=== PATIENT | male | born 1930 | race Hispanic/Latino ===

== ENCOUNTER 2017-06-13 17:22 | Inpatient (IN) | payer MEDICARE ==
[2017-06-13] MEDS ORDERED: Levalbuterol 1.25 MG/3 ML Inhal Soln UD IH STA ×2 (17:34)
[2017-06-13] MEDS ORDERED: Ipratropium 0.02% Inhal Soln (0.5 mg/2.5 ml) UD IH STA ×2 (17:34)
[2017-06-13] MEDS ORDERED: Etomidate 20 mg/10ml Inj IV ONE (17:35)
[2017-06-13] MEDS ORDERED: Succinylcholine 200 mg/10 ml Inj IV ONE (17:36)
--- NOTE | 2017-06-13 17:42 | ED PDOC ---
Arrival/HPI <Patsy Lowry - Last Filed: 06/13/17 19:20> - General Historian: EMS EM Caveat: Altered Mental Status - History of Present Illness Time/Duration: Prior to Arrival Symptom Onset: Sudden Symptom Course: Unchanged <Nancy Mabry - Last Filed: 06/13/17 20:08> - General Chief Complaint: Altered Mental Status Time Seen by Provider: 06/13/17 17:23 - History of Present Illness Narrative History of Present Illness (Text): 06/13/17 17:35 A 87 year old male, whose past medical history includes congestive heart failure , chronic obstructive pulmonary disease, hypertension and diabetes, no-st elevation [place], and peripheral arterial disease, is brought in by EMS and presents to the emergency department with AMS prior to arrival. EMS reports patient has been lethargic for the past few days, and today there was difficulty arousing the patient. EMS mentions O2 sad in the 50s. Also, patient was given Narcan in the field but showed no improvements. Limited HPI and ROS due to AMS. (Nancy Mabry) Past Medical History - Provider Review Nursing Documentation Reviewed: Yes - Cardiac Hx Cardiac Disorders: Yes Hx Congestive Heart Failure: Yes Hx Hypertension: Yes Hx Pacemaker: No - Pulmonary Hx Respiratory Disorders: Yes Hx Chronic Obstructive Pulmonary Disease (COPD): Yes - Neurological Hx Neurological Disorder: No Hx Paralysis: No - HEENT Hx HEENT Disorder: No - Renal Hx Renal Disorder: No - Endocrine/Metabolic Hx Endocrine Disorders: No - Hematological/Oncological Hx Blood Disorders: No Hx Blood Transfusions: No - Integumentary Hx Dermatological Disorder: No - Musculoskeletal/Rheumatological Hx Musculoskeletal Disorders: No - Gastrointestinal Hx Gastrointestinal Disorders: No - Genitourinary/Gynecological Hx Genitourinary Disorders: Yes Hx Bladder Cancer: Yes - Psychiatric Hx Psychophysiologic Disorder: No Hx Emotional Abuse: No Hx Physical Abuse: No Hx Substance Use: No - Surgical History Other/Comment: Stents in legs - Anesthesia Hx Anesthesia Reactions: No Hx Malignant Hyperthermia: No - Suicidal Assessment Feels Threatened In Home Enviroment: No <Nancy Mabry - Last Filed: 06/13/17 20:08> Family/Social History - Physician Review Nursing Documentation Reviewed: Yes Family/Social History: No Known Family HX Smoking Status: Former Smoker Hx Alcohol Use: No (QUIT 3 YRS AGO) Hx Substance Use: No <Nancy Mabry - Last Filed: 06/13/17 20:08> Allergies/Home Meds <Patsy Lowry - Last Filed: 06/13/17 19:20> <Nancy Mabry - Last Filed: 06/13/17 20:08> Allergies/Adverse Reactions: Allergies No Known Allergies Allergy (Verified 06/13/17 17:29) Home Medications: Home Meds Medication Instructions Recorded Confirmed Atorvastatin [Lipitor] 10 mg PO DAILY 03/14/16 06/13/17 Furosemide [Lasix] 40 mg PO DAILY 03/14/16 06/13/17 Isosorbide Mononitrate [Imdur] 60 mg PO DAILY 03/14/16 06/13/17 Metoprolol Tartrate [Lopressor] 25 mg PO BID 03/14/16 06/13/17 Tiotropium [Spiriva] 18 mcg IH BID 03/14/16 06/13/17 Losartan [Cozaar] 25 mg PO DAILY 08/23/16 06/13/17 Tamsulosin [Flomax] 0.4 mg PO DAILY 08/23/16 06/13/17 Mometasone/Formoterol [Dulera 200 1 inh INH BID 06/13/17 06/13/17 Mcg/5 Mcg Inhaler] Review of Systems - Review of Systems Systems not reviewed;Unavailable: Altered Mental Status <Nancy Mabry - Last Filed: 06/13/17 20:08> Physical Exam - Physical Exam Physical Exam Limitations: Altered Mental Status Vital Signs Reviewed: Yes Temperature: Afebrile Blood Pressure: Hypertensive Pulse: Tachycardic Respiratory Rate: Normal Appearance: Positive for: Ill-Appearing, Other (elderly cachectic white male) Pain Distress: None Mental Status: Positive for: Lethargic, other (not talking) Finger Stick Blood Glucose: 118 - Systems Exam Head: Present: Atraumatic, Normocephalic Pupils: Present: Pinpoint (bilaterally), Other (patient opened eyes to sternal rub) Conjunctiva: Present: Normal Mouth: Present: Dry Pharnyx: No: ERYTHEMA, EXUDATE, TONSILS ENLARGED Neck: Present: JVD Respiratory/Chest: Present: Decreased Breath Sounds (diminished) Cardiovascular: Present: Other (distant cardiac sounds) Abdomen: Present: Normal Bowel Sounds. No: Tenderness, Distention, Peritoneal Signs Back: Present: Normal Inspection Upper Extremity: Present: Normal Inspection. No: Cyanosis, Edema Lower Extremity: Present: Edema (pending bilaterally, 2+), Other (ulcerations) Neurological: Present: Other (altered ms; not talking) Skin: Present: Warm, Dry, Normal Color. No: Rashes Psychiatric: Present: Lethargic <Nancy Mabry - Last Filed: 06/13/17 20:08> Vital Signs Temp Pulse Resp BP Pulse Ox 06/13/17 19:15 70 138/55 L 100 06/13/17 19:01 70 131/70 100 06/13/17 18:45 74 16 133/76 100 06/13/17 18:35 133/76 06/13/17 18:30 70 16 115/51 L 100 06/13/17 18:28 98.9 F 06/13/17 18:07 93 H 16 169/72 H 100 06/13/17 17:31 108 H 17 165/85 H 99 Medical Decision Making <Patsy Lowry - Last Filed: 06/13/17 19:20> - Critical Care Critical Care Minutes: 45 minutes - Lab Interpretations I have reviewed the lab results: Yes <Nancy Mabry - Last Filed: 06/13/17 20:08> ED Course and Treatment: 06/13/17 17:28 Impression: 87 year old male with AMS. Physical exam shows EtOH dc; pinpoint bilaterally, patient opens eyes and does sternal rub; patient is not talking; mucous membrane dry; JVD in neck; cardiac distant sounds; diminished breath sounds; abdomen nontender; lower extremities 2+ with pending edema bilaterally, ulcerations. Differential Diagnosis included but are not limited to: Hypercapnia due to CHF vs. COPD vs. Pneumonia vs. CVA vs. Electrolyte Abnormality Plan: -- Blood Gas -- EKG -- Head CT -- Labs -- Amidate -- Lasix -- Atrovent (ordered twice) -- Xopenex (ordered twice) -- Medrol -- Blood Culture -- Urine Culture -- IV Fluids -- Urinalysis -- Reassess and disposition Prior Visits: Notes and results from previous visits were reviewed. Patient was last seen in the emergency department on 08/22/2016 for difficulty ambulating and dyspnea on exertion. Patient was admitted. Progress Notes: 06/13/17 17:29 EKG: Ordered, reviewed, and independently interpreted the EKG. Rate : 109 BPM Rhythm : Sinus tachycardia Interpretation : Biatrial enlargement, left ventricular hypertrophy high voltage. QRS of 120 with new inverted T-waves. Comparison : 08/22/2016 old T-waves changes laterally. Normal access. 06/13/17 19:59 Patient with altered mental status and hypoxic, desaturating to 50% in the field , - no response to narcan; difficult to arouse here in the ED with just eye opening with known history of copd and CHF - concern for airway protection and impending respiratory failure - intubated in the ED. Labs with respiratory acidosis, although may not explain his severe alteration of ms; lactic acid is high, though did not fit SIRS criteria, so code sepsis was not called, but patient was treated with broad spectrum antibiotics; K is high at 6.2; ordered kayexalate and insulin (and glucose) - will need to be admitted to ICU; case was discussed with Dr. Hudson for admission to ICU on the hospitalist's service. 06/13/17 20:[address] result is pending, though does not appear to have a bleed. (Nancy Mabry ) - Lab Interpretations Lab Results: 06/13/17 17:33 06/13/17 18:43 Lab Results 06/13/17 18:43: Sodium 152 H, Chloride 112 H, Potassium 6.2 H* D, Carbon Dioxide 28, Anion Gap 18, BUN 26 H, Creatinine 1.7 H, Est GFR ( Amer) 47 , Est GFR (Non-Af Amer) 38, Random Glucose 115 H, Calcium 8.6, Total Bilirubin 1.7 H, AST 72 H, ALT 40, Alkaline Phosphatase 237 H, Lactate Dehydrogenase 692, Total Creatine Kinase 47, Troponin I 0.14 H* D, NT-Pro-B Natriuret Pep 22026 H, Total Protein 7.2, Albumin 3.4, Globulin 3.8, Albumin/Globulin Ratio 0.9 L, Lipase 34 06/13/17 18:03: Urine Color Dark yellow, Urine Appearance Sl cloudy, Urine pH 5.5, Ur Specific [place] >= 1.030, Urine Protein >=300 H, Urine Glucose (UA) Negative, Urine Ketones Negative, Urine Blood Small H, Urine Nitrate Negative, Urine Bilirubin Moderate H, Urine Urobilinogen 1.0 H, Ur Leukocyte Esterase Negative, Urine RBC 2 - 5, Urine WBC 1 - 3, Ur Epithelial Cells 0 - 2, Urine Bacteria Few, Hyaline Casts 0 - 2, Fine Granular Casts 0 - 2, Coarse Granular Casts Trace H 06/13/17 18:00: pCO2 64 H, pO2 448.0 H, HCO3 28.1 H, ABG pH 7.25 L, ABG Total CO2 30.1 H, ABG O2 Saturation 100.1 H, ABG Base Excess -0.6, ABG Potassium 5.1, Sodium 149.0 H, Chloride 115.0 H, Glucose 114 H, Lactate 3.6 H, Mechanical Rate 16, FiO2 100.0, Tidal Volume 450, PEEP 5, Arterial Blood Potassium 5.1 06/13/17 17:33: PT 14.7 H, INR 1.36 H, APTT 27.8 06/13/17 17:33: WBC 7.4, RBC 5.43, Hgb 15.9, Hct 53.0 H, MCV 97.6, MCH 29.3, MCHC 30.0 L, RDW 17.7 H, Plt Count 268, MPV 10.3, Gran % 77.0 H, Lymph % (Auto) 10.6 L, Angelina % (Auto) 12.0 H, Eos % (Auto) 0.1 L, Baso % (Auto) 0.3, Gran # 5.66 , Lymph # 0.8 L, Angelina # 0.9 H, Eos # 0.0, Baso # 0.02 - RAD Interpretation Radiology Orders: 06/13/17 17:33 Brain [HEAD W/O CONTRAST] [CT] Stat CHEST PORTABLE [RAD] Stat - Medication Orders Current Medication Orders: Midazolam 100 mg/100ml in NS (Midazolam 100 Mg/100ml In Ns) 100 mg in 100 mls @ 2 mls/hr IV .Q24H PRN; Protocol; 2 MG/HR PRN Reason: Agitation Last Admin: 06/13/17 18:25 Dose: 2 mls/hr Cefepime HCl (Maxipime 1gm) 1 gm in 100 mls @ 100 mls/hr IVPB ONCE ONE PRN Reason: Protocol Stop: 06/13/17 20:47 Vancomycin HCl 1 gm/ Sodium (Chloride) 250 mls @ 133.333 mls/hr IV STAT STA PRN Reason: Protocol Stop: 06/13/17 21:39 Discontinued Medications Dextrose (Dextrose 50% Inj) 100 ml IVP STAT STA Stop: 06/13/17 19:33 Etomidate (Amidate) Confirm Administered Dose 20 mg IV .STK-MED ONE Stop: 06/13/17 17:36 Last Admin: 06/13/17 17:47 Dose: Etomidate (Amidate) 20 mg IVP STAT STA Stop: 06/13/17 17:49 Last Admin: 06/13/17 17:49 Dose: 20 mg Furosemide (Lasix) 40 mg IVP STAT STA Stop: 06/13/17 17:47 Last Admin: 06/13/17 18:35 Dose: 40 mg Sodium Chloride (Sodium Chloride 0.9%) 250 mls @ 999 mls/hr IV .Q16M STA Stop: 06/13/17 18:05 Last Admin: 06/13/17 18:17 Dose: 999 mls/hr Insulin Human Regular (Humulin R) 10 units IVP ONCE STA Stop: 06/13/17 19:33 Ipratropium Blain (Atrovent) 0.5 mg IH STAT STA Stop: 06/13/17 17:35 Last Admin: 06/13/17 18:43 Dose: 0.5 mg Ipratropium Blain (Atrovent) 0.5 mg IH STAT STA Stop: 06/13/17 17:35 Last Admin: 06/13/17 18:43 Dose: 0.5 mg Levalbuterol HCl (Xopenex) 1.25 mg IH STAT STA Stop: 06/13/17 17:35 Last Admin: 06/13/17 18:43 Dose: 1.25 mg Levalbuterol HCl (Xopenex) 1.25 mg IH STAT STA Stop: 06/13/17 17:35 Last Admin: 06/13/17 18:43 Dose: 1.25 mg Methylprednisolone (Solu-Medrol) 125 mg IVP STAT STA Stop: 06/13/17 17:34 Last Admin: 06/13/17 18:34 Dose: 125 mg Sodium Polystyrene Sulfonate (Kayexalate Oral Susp) 30 gm DE STAT STA Stop: 06/13/17 19:32 Succinylcholine Chloride (Quelicin) Confirm Administered Dose 200 mg IV .STK- MED ONE Stop: 06/13/17 17:37 Last Admin: 06/13/17 17:46 Dose: Procedures - Intubation Time of Intubation: 17:30 Intubation Method: orotracheal Tube Size (cm): 8.0 Breath Sounds after Intubation: equal Intubation Complications: no complications Post Intubation Xray: Yes <SalvatoreyaakovPatsy - Last Filed: 06/13/17 19:20> <Patsy Lowry - Last Filed: 06/13/17 19:20> - Scribe Statement The provider has reviewed the documentation as recorded by the Scribe <Nancy Mabry - Last Filed: 06/13/17 20:08> - Scribe Statement Vannessa Barnett Provider Scribe Attestation: All medical record entries made by the Scribe were at my direction and personally dictated by me. I have reviewed the chart and agree that the record accurately reflects my personal performance of the history, physical exam, medical decision making, and the department course for this patient. I have also personally directed, reviewed, and agree with the discharge instructions and disposition. (Nancy Mabry) Disposition/Present on Arrival <AlenPatsy - Last Filed: 06/13/17 19:20> - Present on Arrival Any Indicators Present on Arrival: No History of DVT/PE: No History of Uncontrolled Diabetes: No Urinary Catheter: No History of Decub. Ulcer: No History Surgical Site Infection Following: None - Disposition Have Diagnosis and Disposition been Completed?: Yes Disposition Time: 19:00 Patient Plan: Admission, ICU <Nancy Mabry - Last Filed: 06/13/17 20:08> - Disposition Diagnosis: Congestive heart failure (CHF), Altered mental status, Respiratory acidosis Disposition: HOSPITALIZED Condition: CRITICAL Discharge Instructions (ExitCare): Heart Failure (ED) Referrals: [facility] Tere Guerin, [Primary Care Provider] - Follow up with primary Forms: [employer] (Polish)
[2017-06-13] MEDS ORDERED: Etomidate 20 mg/10ml Inj IVP STA (17:48)
[2017-06-13] MEDS ORDERED: Sodium Chloride 0.9% 250 ML IV STA (17:50)
[2017-06-13 17:58] LABS: BASO # 0.02 K/mm3 (0.0-2.0); BASO % 0.3 % (0.0-3.0); EOS % 0.1 % (1.5-5.0); GRAN # 5.66 (1.4-6.5); LYMPH # 0.8 (1.2-3.4); LYMPH % 10.6 % (22.0-35.0); MEAN CELL VOLUME 97.6 fl (80.0-105.0); MEAN CORPUSCULAR HEMOGLOBIN 29.3 pg (25.0-35.0); MEAN PLATELET VOLUME 10.3 fl (7.0-11.0); MONO # 0.9 (0.1-0.6); RED CELL DISTRIBUTION WIDTH 17.7 % (11.5-14.5); WHITE BLOOD COUNT 7.4 10^3/ul (4.5-11.0)
[2017-06-13 18:05] LABS: INR 1.36 (0.93-1.08); PARTIAL THROMBOPLASTIN TIME 27.8 Seconds (23.7-30.8)
[2017-06-13] MEDS ORDERED: Midazolam 100 mg/100ml in NS 100 MG/100 ML SOL IV PRN (18:07)
[2017-06-13 18:16] LABS: ABG MECHANICAL RATE 16; ARTERIAL BLOOD GAS HCO3 28.1 mmol/L (21-28); ARTERIAL BLOOD GAS PH 7.25 (7.35-7.45); ATERIAL BLOOD GAS PEEP 5
[2017-06-13 18:31] LABS: PH,URINE 5.5 (4.7-8.0); URINE BILIRUBIN MODERATE (NEGATIVE); URINE BLOOD SMALL (NEGATIVE); URINE GLUCOSE (UA) NEGATIVE (NEGATIVE); URINE KETONE NEGATIVE (NEGATIVE); URINE LEUKOCYTE ESTERASE NEGATIVE Leu/uL (NEGATIVE); URINE PROTEIN >=300 mg/dL (<30 mg/dL)
[2017-06-13 18:34] LABS: URINE COLOR DARK YELLOW (YELLOW)
[2017-06-13 18:40] LABS: URINE APPEARANCE SL CLOUDY (CLEAR)
[2017-06-13 18:41] LABS: URINE EPITHELIAL CELLS 0 - 2 /hpf (0-5)
[2017-06-13 18:42] LABS: URINE BACTERIA FEW (NEG)
[2017-06-13 18:58] LABS: ALB/GLOB RATIO 0.9 (1.1-1.8); BILIRUBIN,TOTAL 1.7 mg/dL (0.2-1.3); CALCIUM 8.6 mg/dL (8.4-10.5); TOTAL PROTEIN 7.2 g/dL (5.8-8.3)
[2017-06-13 19:25] LABS: TROPONIN I 0.14 ng/mL
[2017-06-13 19:26] LABS: POTASSIUM 6.2 mmol/L (3.6-5.0)
[2017-06-13] MEDS ORDERED: Sod Polystyrene Sulf 15 gm/60 ml Susp PR STA (19:31)
[2017-06-13] MEDS ORDERED: Insulin Regular 1 UNITS/0.01 ML ML IVP STA (19:32)
[2017-06-13] MEDS ORDERED: Dextrose 50% SYRINGE Inj (50 ml) IVP STA (19:32)
[2017-06-13] MEDS ORDERED: Cefepime 1gm in NS 100ml 1 GM/100 ML BAG IVPB ONE (19:48)
--- NOTE | 2017-06-13 20:35 | CT ---
EXAM: CT Head Without Intravenous Contrast EXAM DATE/TIME: 06/13/2017 5:33 PM CLINICAL HISTORY: The patient age is 87 years old and is male; Signs and symptoms; Altered mental status/memory loss; Additional info: [facility] Facility exam id and description: Ct heads head w/o contrast TECHNIQUE: Axial computed tomography images of the head/brain without intravenous contrast. All CT scans at this facility use one or more dose reduction techniques, viz.: automated exposure control; ma/kV adjustment per patient size (including targeted exams where dose is matched to indication; i.e. head); or iterative reconstruction technique. COMPARISON: No relevant prior studies available. FINDINGS: Artifacts: Motion artifact limits this study. 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 A small hypodensity is identified within the right cerebellar lobe, which is too small to determine acuity. There are scattered foci of hypodensity within the cerebral white matter, likely representing small vessel ischemic disease in a patient this age. The acuity of the white matter disease is indeterminate. The white-goode differentiation is preserved demonstrating no acute territorial type infarct. There is prominence of the ventricles and sulci, compatible with atrophy. No acute intracranial hemorrhage is seen. Midline shift: There is no midline shift. Ventricles: See above. Bones/joints: The calvarium demonstrates no evidence for a depressed fracture. Soft tissues: No acute abnormality. Vasculature: There is atherosclerotic calcification of the cavernous internal carotid arteries and distal left vertebral artery. Sinuses: There is mild mucosal thickening of scattered ethmoid air cells. There is minimal mucosal thickening of the right frontal sinus. Mastoid air cells: No mastoid effusion. IMPRESSION: 1. 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 A small hypodensity is identified within the right cerebellar lobe, which is too small to determine acuity. Otherwise, there is no acute territorial type infarct. 2. No acute intracranial hemorrhage. 3. There are scattered foci of hypodensity within the cerebral white matter, likely representing small vessel ischemic disease in a patient this age. 4. Atrophy. 5. Paranasal sinus disease is noted above.
--- NOTE | 2017-06-13 21:43 | CARD ---
APPROVED REPORT EKG Measurement Heart [id number] MI [id number] <Conclusion> Sinus tachycardia Biatrial enlargement Left ventricular hypertrophy with QRS widening and repolarization abnormality Abnormal ECG
[2017-06-13] MEDS ORDERED: Albuterol 0.083% Inhal Sol (2.5 mg/3 mL) UD INH PRN (22:08)
[2017-06-13 22:20] LABS: VENOUS BLOOD GAS BASE EXCESS 4.2 mmol/L (0.0-2.0); VENOUS BLOOD PH 7.39 (7.32-7.43)
[2017-06-13] MEDS ORDERED: Albuterol-Ipratrop 3 mg / 0.5 (3 ml) UD IH PRN (23:31)
[2017-06-13 23:53] LABS: ARTERIAL BLOOD GAS HCO3 29.9 mmol/L (21-28); ARTERIAL BLOOD GAS O2 CAPACITY 19.3 mL/dl (16-24); ARTERIAL BLOOD GAS O2 CONTENT 19.3 ML/dl (15-23); ARTERIAL BLOOD GAS PH 7.45 (7.35-7.45); CARBOXYHEMOGLOBIN 2.1 % (0.5-1.5); HHB -0.1 % (0-5)
--- NOTE | 2017-06-14 00:02 | CP.PCM.HP ---
<Fransisco Tipton - Last Filed: 06/14/17 04:29> History of Present Illness - History of Present Illness History of Present Illness: CC: AMS HPI: Patient is an 87 year old male with past medical history significant for COPD, CHF last known EF of 30-35% in 08/2016, HTN, Paget's disease and PAD who presents [place] [facility] via EMS for lethargy and AMS. Per ED documentation patient had developed lethargy for the past few days. On first encounter with EMS patient was found to be difficult to arouse with O2 saturation in the 50's. Patient was given narcan in the field without improvement in condition. Patient was evalated in ED and found to have fingerstick blood glucose of 118, difficulty with arousal with simply opening of eyes and concern for airway protection. Patient was intubated in ED and transferred to ICU. Initial attempt to reach family for further questioning regarding patient's medical history as well as recent health status was unsuccessful. Patient was intubated in ICU upon examination and thus HPI and ROS were unable to be obtained. Chart review was done and following PMH obtained. PMH: NSTEMI, CHF last known EF of 30-35% in 08/2016, COPD, chronic bronchitis, HTN, Paget;s disease of bone, PAD, bladder tumor with urinary retention PSH: PMH: Noncontributory SocHx: - Tobacco: Former smoker - ETOH: Negative - ID: Negative ALL: NKDA Meds: PMD: Dr. Garcia Present on Admission - Present on Admission Any Indicators Present on Admission: No History of DVT/PE: No History of Uncontrolled Diabetes: No Urinary Catheter: No Decubitus Ulcer Present: No Review of Systems - Review of Systems Review of Systems: unable to obtain 2/2 intubation Past Patient History - Past Social History Smoking Status: Former Smoker Alcohol: None Drugs: Other (no record of ID usage) - CARDIAC Hx Cardiac Disorders: Yes Hx Congestive Heart Failure: Yes Hx Hypercholesterolemia: Yes Hx Hypertension: Yes Other/Comment: mild mi 2011 - PULMONARY Hx Respiratory Disorders: Yes Hx Chronic Obstructive Pulmonary Disease (COPD): Yes Other/Comment: ex smoke 3months ago - NEUROLOGICAL Hx Neurological Disorder: No - HEENT Hx HEENT Problems: Yes Hx Deafness: Yes ([place]) Other/Comment: glasses - RENAL Hx Chronic Kidney Disease: No - ENDOCRINE/METABOLIC Hx Endocrine Disorders: No - HEMATOLOGICAL/ONCOLOGICAL Hx Blood Disorders: No - INTEGUMENTARY Hx Dermatological Problems: No - MUSCULOSKELETAL/RHEUMATOLOGICAL Hx Musculoskeletal Disorders: Yes Hx Falls: Yes - GASTROINTESTINAL Hx Gastrointestinal Disorders: No - GENITOURINARY/GYNECOLOGICAL Hx Genitourinary Disorders: Yes Hx Prostate Problems: Yes - PSYCHIATRIC Hx Psychophysiologic Disorder: No - SURGICAL HISTORY Hx Surgeries: Yes Other/Comment: Stents in legs - ANESTHESIA Hx Anesthesia Reactions: No Hx Malignant Hyperthermia: No Meds Allergies/Adverse Reactions: Allergies Allergy/AdvReac Type Severity Reaction Status Date / Time No Known Allergies Allergy Verified 06/13/17 17:29 Physical Exam - Constitutional Appears: No Acute Distress Additional comments: intubated and sedated - Head Exam Head Exam: ATRAUMATIC, NORMAL INSPECTION, NORMOCEPHALIC Additional comments: Bilateral temporal bossing noted - Eye Exam Additional comments: Pinpoint pupils bilateral - ENT Exam Additional comments: Intubation tube in place, ED noted dry mucous membranes - Neck Exam Neck exam: Positive for: Normal Inspection. Negative for: Lymphadenopathy Additional comments: trachea midline - Respiratory Exam Respiratory Exam: Decreased Breath Sounds, NORMAL BREATHING PATTERN - Cardiovascular Exam Cardiovascular Exam: REGULAR RHYTHM, JVD, +S1, +S2 Additional comments: distant heart sounds - GI/Abdominal Exam GI & Abdominal Exam: Normal Bowel Sounds, Soft. absent: Distended, Firm, Rigid - Rectal Exam Rectal Exam: Deferred - Exam Additional comments: swanson catheter in place - Extremities Exam Extremities exam: Positive for: pedal edema - Neurological Exam Neurological exam: Reflexes Normal Additional comments: patient intubated and sedated - Psychiatric Exam Additional comments: patient intubated - Skin Skin Exam: Dry, Intact, Normal Color, Warm Results - Vital Signs Recent Vital Signs: Last Vital Signs Temp 98.9 F 06/13/17 18:28 Pulse 67 06/13/17 21:10 Resp 20 06/13/17 21:10 BP 162/81 H 06/13/17 21:00 Pulse Ox 100 06/13/17 21:10 - Labs Result Diagrams: 06/13/17 17:33 06/13/17 18:43 Labs: Laboratory Results - last 24 hr 06/13/17 06/13/17 06/13/17 22:07 22:07 22:07 pO2 49 VBG pH 7.39 VBG pCO2 50.0 VBG HCO3 30.3 H VBG Total CO2 31.8 H VBG O2 Sat (Calc) 88.8 H VBG Base Excess 4.2 H VBG Potassium 5.1 Sodium 151.0 H Chloride 111.0 H Glucose 177 H Lactate 2.9 H FiO2 21.0 TSH 3rd Generation Venous Blood Potassium 5.1 Urine Osmolality Ur Random Sodium Ur Random Potassium Salicylates < 1 L Urine Opiates Screen Urine Methadone Screen Ur Barbiturates Screen Ur Phencyclidine Scrn Ur Amphetamines Screen U Benzodiazepines Scrn U Oth Cocaine Metabols U Cannabinoids Screen Alcohol, Quantitative < 10 06/13/17 06/13/17 06/13/17 22:30 22:59 22:59 pO2 VBG pH VBG pCO2 VBG HCO3 VBG Total CO2 VBG O2 Sat (Calc) VBG Base Excess VBG Potassium Sodium Chloride Glucose Lactate FiO2 TSH 3rd Generation 3.08 Venous Blood Potassium Urine Osmolality 326 Ur Random Sodium 111 Ur Random Potassium 37.9 Salicylates Urine Opiates Screen Negative Urine Methadone Screen Negative Ur Barbiturates Screen Negative Ur Phencyclidine Scrn Negative Ur Amphetamines Screen Negative U Benzodiazepines Scrn Positive H U Oth Cocaine Metabols Negative U Cannabinoids Screen Negative Alcohol, Quantitative Assessment & Plan - Assessment and Plan (Free Text) Assessment: 87 year old male with past medical history of COPD, CHF last known EF of 30-35% in 08/2016, Paget's disease, HTN who presented with AMS and hypercapnic respiratory failure secondary to CHF exacerbation vs. COPD exacerbation vs. electrolyte abnormality vs. CVA. Patient has been intubated due to inability to protect airway and placed in ICU for further monitoring and evaluation. Patient to be evaluated by neurology, cardiology and nephrology for further workup of AMS. Patient is currently stable. Plan: Neuro: AMS - Head CT showing small hypodense lacunar infarct within the left cerebellar lobe considered to be subacute - Pinpoint pupils on exam, with no change in AMS with admin of narcan - Urine drug screen - Salicylate lvl - Ammonia lvl - Neuro checks Q4H - Neurology consult, appreciate recs - Minimize sedation to assess patient - Placement of OG tube - ASA 81mg, Statin, Lipid Panel Pulm: COPD - ABG result 7.25/64/448/SaO2 100 on FiO2 of 100 - Repeat ABG - Solumedrol IV 40mg Q8H - Nebulizer tx Q6H - Nebulizer tx Q2H prn CV: Heart Failure - Last known EF in 08/2016 was 30-35% - Cardiology consult, appreciate recs - Trend troponins - Lasix IV 40mg Daily to start in AM - Continue home PO meds - Permissive HTN of systolic 200/diastolic 100 - Hydralazine 10mg IV prn - Strict I&O's - Daily weights - Consider heparin gtt if continued elevation of trop GI: - IV pepcid Renal: - Nephrology consult, appreciate recs - Urine electrolytes & osmolarity Endo: - TSH lvl - bg stable Heme: - Stable ID: - ED gave cefepime and vanc - Follow up with blood clx, urine clx, wound clx - monitor for fever or unstable VS Psych: - Unable to analyze GI ppx - IV pepcid Case discussed and reviewed with Dr. Hudson - Date & Time Date: 06/14/17 Time: 01:00 <Luis F Hudson Q - Last Filed: 06/14/17 04:41> Results - Vital Signs Recent Vital Signs: Last Vital Signs Temp 98 F 06/14/17 00:00 Pulse 67 06/13/17 21:14 Resp 22 06/13/17 21:14 BP 160/94 H 06/13/17 21:14 Pulse Ox 100 06/13/17 21:10 - Labs Result Diagrams: 06/13/17 17:33 06/13/17 18:43 Labs: Laboratory Results - last 24 hr 06/13/17 06/13/17 06/13/17 22:07 22:07 22:07 pCO2 pO2 49 HCO3 ABG pH ABG Total CO2 ABG O2 Saturation ABG O2 Content ABG Base Excess ABG Hemoglobin ABG Carboxyhemoglobin POC ABG HHb (Measured) ABG Methemoglobin ABG O2 Capacity VBG pH 7.39 VBG pCO2 50.0 VBG HCO3 30.3 H VBG Total CO2 31.8 H VBG O2 Sat (Calc) 88.8 H VBG Base Excess 4.2 H VBG Potassium 5.1 Hgb O2 Saturation Sodium 151.0 H Chloride 111.0 H Glucose 177 H Lactate 2.9 H FiO2 21.0 Ammonia Total Creatine Kinase Troponin I TSH 3rd Generation Venous Blood Potassium 5.1 Urine Osmolality Ur Random Sodium Ur Random Potassium Salicylates < 1 L Urine Opiates Screen Urine Methadone Screen Ur Barbiturates Screen Ur Phencyclidine Scrn Ur Amphetamines Screen U Benzodiazepines Scrn U Oth Cocaine Metabols U Cannabinoids Screen Alcohol, Quantitative < 10 06/13/17 06/13/17 06/13/17 22:30 22:59 22:59 pCO2 pO2 HCO3 ABG pH ABG Total CO2 ABG O2 Saturation ABG O2 Content ABG Base Excess ABG Hemoglobin ABG Carboxyhemoglobin POC ABG HHb (Measured) ABG Methemoglobin ABG O2 Capacity VBG pH VBG pCO2 VBG HCO3 VBG Total CO2 VBG O2 Sat (Calc) VBG Base Excess VBG Potassium Hgb O2 Saturation Sodium Chloride Glucose Lactate FiO2 Ammonia Total Creatine Kinase Troponin I TSH 3rd Generation 3.08 Venous Blood Potassium Urine Osmolality 326 Ur Random Sodium 111 Ur Random Potassium 37.9 Salicylates Urine Opiates Screen Negative Urine Methadone Screen Negative Ur Barbiturates Screen Negative Ur Phencyclidine Scrn Negative Ur Amphetamines Screen Negative U Benzodiazepines Scrn Positive H U Oth Cocaine Metabols Negative U Cannabinoids Screen Negative Alcohol, Quantitative 06/13/17 06/13/17 06/14/17 23:40 23:45 02:08 pCO2 43 pO2 230.0 H 91 H HCO3 29.9 H ABG pH 7.45 ABG Total CO2 31.2 H ABG O2 Saturation 100.1 H ABG O2 Content 19.3 ABG Base Excess 5.2 H ABG Hemoglobin 13.8 ABG Carboxyhemoglobin 2.1 H POC ABG HHb (Measured) -0.1 L ABG Methemoglobin 1.0 ABG O2 Capacity 19.3 VBG pH 7.50 H VBG pCO2 40.0 VBG HCO3 31.2 H VBG Total CO2 32.4 H VBG O2 Sat (Calc) 98.9 H VBG Base Excess 7.4 H VBG Potassium 3.9 Hgb O2 Saturation 97.0 Sodium 153.0 H Chloride 114.0 H Glucose 137 H Lactate 2.4 H FiO2 50.0 21.0 Ammonia 11 Total Creatine Kinase Troponin I TSH 3rd Generation Venous Blood Potassium 3.9 Urine Osmolality Ur Random Sodium Ur Random Potassium Salicylates Urine Opiates Screen Urine Methadone Screen Ur Barbiturates Screen Ur Phencyclidine Scrn Ur Amphetamines Screen U Benzodiazepines Scrn U Oth Cocaine Metabols U Cannabinoids Screen Alcohol, Quantitative 06/14/17 02:08 pCO2 pO2 HCO3 ABG pH ABG Total CO2 ABG O2 Saturation ABG O2 Content ABG Base Excess ABG Hemoglobin ABG Carboxyhemoglobin POC ABG HHb (Measured) ABG Methemoglobin ABG O2 Capacity VBG pH VBG pCO2 VBG HCO3 VBG Total CO2 VBG O2 Sat (Calc) VBG Base Excess VBG Potassium Hgb O2 Saturation Sodium Chloride Glucose Lactate FiO2 Ammonia Total Creatine Kinase 82 Troponin I 0.98 H* D TSH 3rd Generation Venous Blood Potassium Urine Osmolality Ur Random Sodium Ur Random Potassium Salicylates Urine Opiates Screen Urine Methadone Screen Ur Barbiturates Screen Ur Phencyclidine Scrn Ur Amphetamines Screen U Benzodiazepines Scrn U Oth Cocaine Metabols U Cannabinoids Screen Alcohol, Quantitative Attending/Attestation - Attestation I have personally seen and examined this patient.: Yes I have fully participated in the care of the patient.: Yes I have reviewed all pertinent clinical information: Yes Notes (Text): 06/14/17 04:35 I agree with the above mentioned note and exam by the resident with the addition /exception of the followin87 y/o male with an extensive PMHx as listed above was found by his son at home appearing extremely weak and lethargic. EMS brought the patient in to the ED; initially given narcan for pinpoint pupils and decreased responsiveness without effect. Pt subsequently intubated for failing to protect his airway. Hypercapnic respiratory failure, now resolving on the ventilator Systolic heart failure treated with IV lasix in the ED; appears improved with good oxygenation Patient was kept off sedation and became agitated, moving all extremities, so he was restarted on a versed drip Subacute cerebellar CVA noted; possible MRI/MRA once patient is extubated to further assess acuity Acute Kidney injury hyperkalemia strict i's and o's daily weights Case discussed with ED Physician (Dr. Mabry) at length reviewed all labs and imaging available to me thus far total time of care: 50 minutes
[2017-06-14 00:23] VITALS: BMI 25.7
[2017-06-14] MEDS: Albuterol-Ipratrop 3 mg / 0.5 (3 ml) UD IH SCH ×4 (01:25→20:01)
[2017-06-14] MEDS ORDERED: Albuterol 0.083% Inhal Sol (2.5 mg/3 mL) UD INH SCH (02:00)
[2017-06-14 02:36] LABS: VENOUS BLOOD GAS BASE EXCESS 7.4 mmol/L (0.0-2.0)
[2017-06-14 03:02] LABS: TROPONIN I 0.98 ng/mL
[2017-06-14] MEDS: MethylPREDNISolone 40 mg Vial IVP SCH ×3 (05:27→21:04)
[2017-06-14] MEDS: Pantoprazole 40 mg Susp UD GT SCH (05:27)
[2017-06-14 05:45] LABS: ARTERIAL BLOOD GAS HCO3 30.9 mmol/L (21-28); ARTERIAL BLOOD GAS O2 CONTENT 17.8 ML/dl (15-23); ARTERIAL BLOOD GAS PH 7.53 (7.35-7.45); ARTERIAL BLOOD HGB O2 SAT 96.2 % (95.0-98.0); HHB 0.9 % (0-5)
[2017-06-14 06:25] LABS: VENOUS BLOOD PH 7.52 (7.32-7.43)
[2017-06-14 06:26] LABS: GRAN # 6.44 (1.4-6.5); GRAN % 88.7 % (50.0-68.0); HEMATOCRIT 43.3 % (42.0-52.0); LYMPH # 0.5 (1.2-3.4); LYMPH % 6.9 % (22.0-35.0); MEAN CELL VOLUME 91.4 fl (80.0-105.0); MEAN CORPUSCULAR HEMOGLOBIN 28.3 pg (25.0-35.0); MEAN CORPUSCULAR HGB CONC 30.9 g/dl (31.0-37.0); MEAN PLATELET VOLUME 10.2 fl (7.0-11.0); MONO # 0.3 (0.1-0.6); MONO % 4.4 % (1.0-6.0); RED CELL DISTRIBUTION WIDTH 17.3 % (11.5-14.5); WHITE BLOOD COUNT 7.3 10^3/ul (4.5-11.0)
[2017-06-14 06:42] LABS: ALB/GLOB RATIO 0.8 (1.1-1.8); BILIRUBIN,TOTAL 1.4 mg/dL (0.2-1.3); CALCIUM 8.4 mg/dL (8.4-10.5); MAGNESIUM 1.9 mg/dL (1.7-2.2); PHOSPHOROUS 2.5 mg/dL (2.5-4.5)
[2017-06-14] MEDS: Heparin 25,000units in D5W 25,000 UNITS/250 ML BAG IV SCH (06:54)
--- NOTE | 2017-06-14 07:36 | RAD ---
HISTORY: COMPARISON: 06/13/2017 FINDINGS: LUNGS: Patchy opacity noted at right base representing interval change. Previous left sided pulmonary opacity is almost entirely resolved. Small rounded opacity in the left upper lobe remains. Uncertain significance. Followup advised. PLEURA: Small right pleural effusion. No left pleural effusion. CARDIOVASCULAR: Endotracheal tube, nasogastric tube unchanged from prior. OSSEOUS STRUCTURES: No significant abnormalities. VISUALIZED UPPER ABDOMEN: Normal. OTHER FINDINGS: None. IMPRESSION: Right basilar opacity. Followup to rule out pneumonia. Small right pleural effusion. Resolving left sided pulmonary opacity with residual rounded opacity left upper lobe. Followup advised. Lines and tubes unchanged.
--- NOTE | 2017-06-14 07:42 | RAD ---
HISTORY: ett , ngt placement COMPARISON: 06/13/2017 at 6:14 p.m. FINDINGS: LUNGS: Mid left lung diffuse opacity. Possible pneumonia. Followup advised. PLEURA: Small bilateral pleural effusion. No pneumothorax. CARDIOVASCULAR: Endotracheal tube unchanged. Nasogastric tube inserted, extending to left upper quadrant of abdomen. OSSEOUS STRUCTURES: No significant abnormalities. VISUALIZED UPPER ABDOMEN: Normal. OTHER FINDINGS: None. IMPRESSION: Left-sided diffuse pulmonary opacity is suspicious for developing pneumonia. Small bilateral pleural effusion. New nasogastric tube appropriately positioned.
--- NOTE | 2017-06-14 07:55 | RAD ---
HISTORY: sob, post intubation COMPARISON: 09/21/2016 FINDINGS: LUNGS: Diffuse left-sided opacity. Possible pneumonia. Followup advised. PLEURA: Small bilateral pleural effusion. No pneumothorax. CARDIOVASCULAR: Endotracheal tube tip 3 cm above tracheal deni. OSSEOUS STRUCTURES: No significant abnormalities. VISUALIZED UPPER ABDOMEN: Normal. OTHER FINDINGS: None. IMPRESSION: The diffuse left-sided pulmonary opacity. Possible developing pneumonia. Small bilateral pleural effusion.
[2017-06-14] MEDS ORDERED: Sodium Chloride 0.45% 1,000 ML IV SCH (08:00)
[2017-06-14 08:55] LABS: TROPONIN I 1.16 ng/mL
[2017-06-14] MEDS: Metoprolol 1 mg/ml Inj IV SCH ×2 (09:03→18:30)
--- NOTE | 2017-06-14 10:00 | CP.PCM.PN ---
<GENTRY JONES - Last Filed: 06/14/17 11:42> Subjective - Date & Time of Evaluation Date of Evaluation: 06/14/17 Time of Evaluation: 07:30 - Subjective Subjective: Gentry Jones DO PGY1 - ICU Progress Note Patient seen and examined at bedside. Patient was admitted to ICU yesterday after intubation for hypercapnic respiratory failure and lethargy. Nurse reports that versed was recently held for weaning and extubation trial. He remains intubated, lethargic, unarousable. Responsive to verbal stimuli, but not opening his eyes, not localizing pain. Objective - Vital Signs/Intake and Output Vital Signs (last 24 hours): Temp Pulse Resp BP Pulse Ox 98 F 55 L 23 173/66 H 100 06/14/17 00:00 06/14/17 09:32 06/14/17 07:12 06/14/17 09:03 06/14/17 07:12 Intake and Output: 06/14/17 06/14/17 06:59 18:59 Intake Total 484 Output Total 800 Balance -316 - Medications Medications: Current Medications Albuterol/Ipratropium (Duoneb 3 Mg/0.5 Mg (3 Ml) Ud) 3 ml IH [id number] [facility] Last Admin: 06/14/17 07:05 Dose: 3 ml Albuterol/Ipratropium (Duoneb 3 Mg/0.5 Mg (3 Ml) Ud) 3 ml IH Q2H PRN PRN Reason: Shortness of Breath Atorvastatin Calcium (Lipitor) 10 mg PO DAILY [facility] Last Admin: 06/14/17 09:27 Dose: 10 mg Furosemide (Lasix) 40 mg IVP DAILY [facility] Hydralazine HCl (Apresoline) 10 mg IVP Q6 PRN PRN Reason: high blood pressure Heparin Sodium/Dextrose (Heparin 25,000 Units/250ml In D5w) 25,000 units in 250 mls @ 7.914 mls/hr IV .Q24H TOMER; 12 UNITS/KG/HR PRN Reason: Protocol Last Admin: 06/14/17 06:54 Dose: 12 units/kg/hr, 7.914 mls/hr Dextrose (Dextrose 5% In Water 1000 Ml) 1,000 mls @ 150 mls/hr IV .Q6H40M [facility] Last Admin: 06/14/17 08:33 Dose: 150 mls/hr Isosorbide Mononitrate (Imdur) 60 mg PO DAILY [facility] Last Admin: 06/14/17 09:26 Dose: 60 mg Methylprednisolone (Solu-Medrol) 40 mg IVP Q8 [facility] Last Admin: 06/14/17 05:27 Dose: 40 mg Metoprolol Tartrate (Lopressor) 5 mg IV Q8H [facility] Last Admin: 06/14/17 09:03 Dose: 5 mg Mupirocin (Bactroban Ointment) 0 gm TOP BID [facility] Pantoprazole Sodium (Protonix Susp) 40 mg GT 0600 [facility] Last Admin: 06/14/17 05:27 Dose: 40 mg - Labs Labs: 06/14/17 06:05 06/14/17 06:05 PT 14.7 Seconds (9.9-11.8) H 06/13/17 17:33 INR 1.36 (0.93-1.08) H 06/13/17 17:33 APTT 30.3 Seconds (23.7-30.8) 06/14/17 08:15 - Constitutional Appears: Chronically Ill, Other (Intubated, lethargic) - Head Exam Head Exam: ATRAUMATIC - Eye Exam Additional comments: Pupils pinpoint, symmetric, nonreactive - ENT Exam ENT Exam: Mucous Membranes Dry - Neck Exam Neck Exam: absent: Lymphadenopathy, Thyromegaly - Respiratory Exam Respiratory Exam: Decreased Breath Sounds, Rhonchi - Cardiovascular Exam Cardiovascular Exam: RRR, +S1, +S2 - GI/Abdominal Exam GI & Abdominal Exam: Soft, Tenderness - Extremities Exam Additional comments: B/L shins eythermatous and ulcerated with purulent drainage. No necrosis or bleeding. - Neurological Exam Additional comments: Off sedation, lethargic, patient responsive to verbal stimuli, but not opening eyes, not localizing pain. Pupils pinpoint, not reactive to light. Assessment and Plan - Assessment and Plan (Free Text) Assessment: 87 yo M admitted to the ICU after intubation for hypercapnic respiratory failure and AMS 2/2 CVA vs NSTEMI vs CHF exacerbation vs COPD exacerbation. with past medical history of COPD, CHF last known EF of 30-35% in 08/2016, Paget 's disease, HTN. Plan: Neuro: - Continues to be lethargic off sedation, though effects of versed may still be wearing off when last examined. - Will hold versed to reexamine - Head CT showing small hypodense lacunar infarct within the left cerebellar lobe considered to be subacute. MRI and MRA done today, show no acute ischemic or hemorrhagic infarcts - Still has pinpoint pupils on exam, symmetric, nonreactive - Urine drug screen and tox screen significant for benzodiazepines, but collected after intubation and sedation on versed - Neuro checks Q4H - EEG ordered - Neurology (Matthew) on consult, all recs appreciated Pulm: - H/o COPD and tobacco abuse, intubated for hypercapnic respiratory failure, no longer hypercapnic, and oxygenating well on 30% FiO2 - ABG shows metabolic alkalosis, likely post hypercapnic and contraction alkalosis - On Solumedrol and Duoneb tomer and PRN CV: - History of CHF, last known EF in 08/2016 was 30-35%, repeat echo rodered - NSTEMI with ST changes on EKG and uptrending troponins - Will start heparin drip, ASA, statin, plavix - Cardiology (Elkind) on consult, all recs appreciated - Continue to trend troponins - Lasix IV 40mg Daily - On lopressor, Imdur, Hydralazine 10mg IV prn - Permissive HTN of systolic 200/diastolic 100 - Daily weights GI: - Pepcid for PPx - OG tube in place for PO meds Renal: - JASWINDER with Cr 1.6, from baseline of 1.2-1.4, likely prerenal with urine sodium 111 - Hyperkalemic on admission, recieved kayexelate, had one BM, now improved - Hypernatremic, hyperchloremic, likely dehydrated. - On D5W@150cc/hr - Monitor and replete lytes as needed - Nephrology on consult, all recs appreciated Endo: - Maintain euglycemia - Recheck BMP in AM Heme: - H/H stable, no active bleed - Recheck CBC in AM ID: - Afebrile, no leukocytosis - Chronic venous stasis ulcerations b/l shins. Receiving topical mupirocin. Podiatry consulted, all recs appreciated. - BCx, UCx, and SCx pending - Recieved one dose of cefipime and vanc in the ER - Continue to monitor PPx: Pepcid for GI, Heparin gtt covers for DVT Case discussed and reviewed with attending <Garcia Julien MD H - Last Filed: 06/14/17 14:13> Objective - Vital Signs/Intake and Output Vital Signs (last 24 hours): Temp Pulse Resp BP Pulse Ox 98 F 64 18 161/70 H 97 06/14/17 00:00 06/14/17 11:40 06/14/17 10:34 06/14/17 11:30 06/14/17 11:40 Intake and Output: 06/14/17 06/14/17 06:59 18:59 Intake Total 484 Output Total 800 Balance -316 - Medications Medications: Current Medications Albuterol/Ipratropium (Duoneb 3 Mg/0.5 Mg (3 Ml) Ud) 3 ml IH [id number] [facility] Last Admin: 06/14/17 13:21 Dose: 3 ml Albuterol/Ipratropium (Duoneb 3 Mg/0.5 Mg (3 Ml) Ud) 3 ml IH Q2H PRN PRN Reason: Shortness of Breath Aspirin (Ecotrin) 81 mg PO DAILY [facility] Last Admin: 06/14/17 11:36 Dose: 81 mg Atorvastatin Calcium (Lipitor) 10 mg PO DAILY [facility] Last Admin: 06/14/17 09:27 Dose: 10 mg Clopidogrel Bisulfate (Plavix) 75 mg PO DAILY [facility] Last Admin: 06/14/17 11:36 Dose: 75 mg Furosemide (Lasix) 40 mg IVP DAILY [facility] Last Admin: 06/14/17 11:43 Dose: Not Given Hydralazine HCl (Apresoline) 10 mg IVP Q6 PRN PRN Reason: high blood pressure Heparin Sodium/Dextrose (Heparin 25,000 Units/250ml In D5w) 25,000 units in 250 mls @ 7.914 mls/hr IV .Q24H TOMER; 12 UNITS/KG/HR PRN Reason: Protocol Last Admin: 06/14/17 06:54 Dose: 12 units/kg/hr, 7.914 mls/hr Dextrose (Dextrose 5% In Water 1000 Ml) 1,000 mls @ 150 mls/hr IV .Q6H40M [facility] Last Admin: 06/14/17 08:33 Dose: 150 mls/hr Isosorbide Mononitrate (Imdur) 60 mg PO DAILY [facility] Last Admin: 06/14/17 13:24 Dose: Not Given Methylprednisolone (Solu-Medrol) 40 mg IVP Q8 [facility] Last Admin: 06/14/17 13:25 Dose: 40 mg Metoprolol Tartrate (Lopressor) 5 mg IV Q8H [facility] Last Admin: 06/14/17 09:03 Dose: 5 mg Mupirocin (Bactroban Ointment) 0 gm TOP BID [facility] Last Admin: 06/14/17 10:00 Dose: 1 applic Pantoprazole Sodium (Protonix Susp) 40 mg GT 0600 [facility] Last Admin: 06/14/17 05:27 Dose: 40 mg - Labs Labs: 06/14/17 06:05 06/14/17 06:05 PT 14.7 Seconds (9.9-11.8) H 06/13/17 17:33 INR 1.36 (0.93-1.08) H 06/13/17 17:33 APTT 30.3 Seconds (23.7-30.8) 06/14/17 08:15 Attending/Attestation - Attestation I have personally seen and examined this patient.: Yes I have fully participated in the care of the patient.: Yes I have reviewed all pertinent clinical information, including history, physical exam and plan: Yes Notes (Text): 06/14/17 14:11 87 y/o M w/ acute respiratory failure s/p Intubation due to AMS and airway protection. Unclear cause for mental status changes. MRI and CT done, w/o findings of acute CVA. NSTEMI noted w/ high ARA score. On Heparin drip, asprin, plavix and statin . EKG changes noted and cardiology consulted and aware. Off all sedation currently and passed SBT trial on VENt but mental status unstable to extubate. Hypernatremia noted w/ free water deficit on D5W and monitor na changes , bmp q 12 hrs. DVT P ppi cc time 65 min
--- NOTE | 2017-06-14 10:50 | CP.PCM.CON ---
<Andres Mckeon - Last Filed: 06/14/17 10:32> History of Present Illness - History of Present Illness History of Present Illness: 87 yo male patient with PMHx of Paget's disease, NSTEMI, CHF, COPD, chronic bronchitis, HTN, PAD, bladder tumor was seen at bedside this Am with attending Dr. Buitrago concerning ulcerations to bilateral legs. Patient on CPAP, lathergic , unable to communicate. Dressing to bilateral legs appear cdi. According to DE note, patient was found lethargic with difficulty arousing the patient. Past Patient History - Past Social History Smoking Status: Former Smoker Alcohol: None Drugs: Other (no record of ID usage) - CARDIAC Hx Cardiac Disorders: Yes Hx Congestive Heart Failure: Yes Hx Hypercholesterolemia: Yes Hx Hypertension: Yes Other/Comment: mild mi 2011 - PULMONARY Hx Respiratory Disorders: Yes Hx Chronic Obstructive Pulmonary Disease (COPD): Yes Other/Comment: ex smoke 3months ago - NEUROLOGICAL Hx Neurological Disorder: No - HEENT Hx HEENT Problems: Yes Hx Deafness: Yes ([facility]) Other/Comment: glasses - RENAL Hx Chronic Kidney Disease: No - ENDOCRINE/METABOLIC Hx Endocrine Disorders: No - HEMATOLOGICAL/ONCOLOGICAL Hx Blood Disorders: No - INTEGUMENTARY Hx Dermatological Problems: No - MUSCULOSKELETAL/RHEUMATOLOGICAL Hx Musculoskeletal Disorders: Yes Hx Falls: Yes - GASTROINTESTINAL Hx Gastrointestinal Disorders: No - GENITOURINARY/GYNECOLOGICAL Hx Genitourinary Disorders: Yes Hx Prostate Problems: Yes - PSYCHIATRIC Hx Psychophysiologic Disorder: No - SURGICAL HISTORY Hx Surgeries: Yes Other/Comment: Stents in legs - ANESTHESIA Hx Anesthesia Reactions: No Hx Malignant Hyperthermia: No Meds Allergies/Adverse Reactions: Allergies Allergy/AdvReac Type Severity Reaction Status Date / Time No Known Allergies Allergy Verified 06/23/17 20:00 - Medications Medications: Current Medications Albuterol/Ipratropium (Duoneb 3 Mg/0.5 Mg (3 Ml) Ud) 3 ml IH [id number] [facility] Last Admin: 06/14/17 07:05 Dose: 3 ml Albuterol/Ipratropium (Duoneb 3 Mg/0.5 Mg (3 Ml) Ud) 3 ml IH Q2H PRN PRN Reason: Shortness of Breath Atorvastatin Calcium (Lipitor) 10 mg PO DAILY [facility] Last Admin: 06/14/17 09:27 Dose: 10 mg Furosemide (Lasix) 40 mg IVP DAILY [facility] Hydralazine HCl (Apresoline) 10 mg IVP Q6 PRN PRN Reason: high blood pressure Heparin Sodium/Dextrose (Heparin 25,000 Units/250ml In D5w) 25,000 units in 250 mls @ 7.914 mls/hr IV .Q24H [facility]; 12 UNITS/KG/HR PRN Reason: Protocol Last Admin: 06/14/17 06:54 Dose: 12 units/kg/hr, 7.914 mls/hr Dextrose (Dextrose 5% In Water 1000 Ml) 1,000 mls @ 150 mls/hr IV .Q6H40M [facility] Last Admin: 06/14/17 08:33 Dose: 150 mls/hr Isosorbide Mononitrate (Imdur) 60 mg PO DAILY [facility] Last Admin: 06/14/17 09:26 Dose: 60 mg Methylprednisolone (Solu-Medrol) 40 mg IVP Q8 [facility] Last Admin: 06/14/17 05:27 Dose: 40 mg Metoprolol Tartrate (Lopressor) 5 mg IV Q8H [facility] Last Admin: 06/14/17 09:03 Dose: 5 mg Mupirocin (Bactroban Ointment) 0 gm TOP BID [facility] Pantoprazole Sodium (Protonix Susp) 40 mg GT 0600 [facility] Last Admin: 06/14/17 05:27 Dose: 40 mg Physical Exam - Constitutional Appears: Well, Non-toxic, No Acute Distress - Head Exam Head Exam: ATRAUMATIC - Extremities Exam Additional comments: Bilateral lower extremity exam DERM: Open ulcerations to anterior aspect of bilateral legs measuring 18cm x 7cm x 0.2cm with mix of fibrotic and granular base. Moderate sero-sanguinous drainage is noted. Mal-odor is present. No purulent discharge noted. Erythema noted around the wound marings >2cm VASC: Palpable DP and PT noted 1/4 bilaterally. PODIATRY ASSISTANT less than 3 seconds noted to all digits - Skin Skin Exam: Normal Color, Warm Results - Vital Signs Recent Vital Signs: Last Vital Signs Temp 98 F 06/14/17 00:00 Pulse 55 L 06/14/17 09:32 Resp 23 06/14/17 07:12 BP 173/66 H 06/14/17 09:03 Pulse Ox 100 06/14/17 07:12 - Labs Result Diagrams: 06/14/17 06:05 06/14/17 06:05 Labs: Laboratory Results - last 24 hr 06/13/17 06/13/17 06/13/17 22:07 22:07 22:07 WBC RBC Hgb Hct MCV MCH MCHC RDW Plt Count MPV Gran % Lymph % (Auto) Tucker % (Auto) Eos % (Auto) Baso % (Auto) Gran # Lymph # Tucker # Eos # Baso # APTT pCO2 pO2 49 HCO3 ABG pH ABG Total CO2 ABG O2 Saturation ABG O2 Content ABG Base Excess ABG Hemoglobin ABG Carboxyhemoglobin POC ABG HHb (Measured) ABG Methemoglobin ABG O2 Capacity VBG pH 7.39 VBG pCO2 50.0 VBG HCO3 30.3 H VBG Total CO2 31.8 H VBG O2 Sat (Calc) 88.8 H VBG Base Excess 4.2 H VBG Potassium 5.1 Hgb O2 Saturation Sodium 151.0 H Chloride 111.0 H Glucose 177 H Lactate 2.9 H FiO2 21.0 Potassium Carbon Dioxide Anion Gap BUN Creatinine Est GFR ( Amer) Est GFR (Non-Af Amer) Random Glucose Calcium Phosphorus Magnesium Total Bilirubin AST ALT Alkaline Phosphatase Ammonia Total Creatine Kinase Troponin I Total Protein Albumin Globulin Albumin/Globulin Ratio Triglycerides Cholesterol LDL Cholesterol Direct HDL Cholesterol TSH 3rd Generation Venous Blood Potassium 5.1 Urine Osmolality Ur Random Sodium Ur Random Potassium Salicylates < 1 L Urine Opiates Screen Urine Methadone Screen Ur Barbiturates Screen Ur Phencyclidine Scrn Ur Amphetamines Screen U Benzodiazepines Scrn U Oth Cocaine Metabols U Cannabinoids Screen Alcohol, Quantitative < 10 06/13/17 06/13/17 06/13/17 22:30 22:59 22:59 WBC RBC Hgb Hct MCV MCH MCHC RDW Plt Count MPV Gran % Lymph % (Auto) Tucker % (Auto) Eos % (Auto) Baso % (Auto) Gran # Lymph # Tucker # Eos # Baso # APTT pCO2 pO2 HCO3 ABG pH ABG Total CO2 ABG O2 Saturation ABG O2 Content ABG Base Excess ABG Hemoglobin ABG Carboxyhemoglobin POC ABG HHb (Measured) ABG Methemoglobin ABG O2 Capacity VBG pH VBG pCO2 VBG HCO3 VBG Total CO2 VBG O2 Sat (Calc) VBG Base Excess VBG Potassium Hgb O2 Saturation Sodium Chloride Glucose Lactate FiO2 Potassium Carbon Dioxide Anion Gap BUN Creatinine Est GFR ( Amer) Est GFR (Non-Af Amer) Random Glucose Calcium Phosphorus Magnesium Total Bilirubin AST ALT Alkaline Phosphatase Ammonia Total Creatine Kinase Troponin I Total Protein Albumin Globulin Albumin/Globulin Ratio Triglycerides Cholesterol LDL Cholesterol Direct HDL Cholesterol TSH 3rd Generation 3.08 Venous Blood Potassium Urine Osmolality 326 Ur Random Sodium 111 Ur Random Potassium 37.9 Salicylates Urine Opiates Screen Negative Urine Methadone Screen Negative Ur Barbiturates Screen Negative Ur Phencyclidine Scrn Negative Ur Amphetamines Screen Negative U Benzodiazepines Scrn Positive H U Oth Cocaine Metabols Negative U Cannabinoids Screen Negative Alcohol, Quantitative 06/13/17 06/13/17 06/14/17 23:40 23:45 02:08 WBC RBC Hgb Hct MCV MCH MCHC RDW Plt Count MPV Gran % Lymph % (Auto) Tucker % (Auto) Eos % (Auto) Baso % (Auto) Gran # Lymph # Tucker # Eos # Baso # APTT pCO2 43 pO2 230.0 H 91 H HCO3 29.9 H ABG pH 7.45 ABG Total CO2 31.2 H ABG O2 Saturation 100.1 H ABG O2 Content 19.3 ABG Base Excess 5.2 H ABG Hemoglobin 13.8 ABG Carboxyhemoglobin 2.1 H POC ABG HHb (Measured) -0.1 L ABG Methemoglobin 1.0 ABG O2 Capacity 19.3 VBG pH 7.50 H VBG pCO2 40.0 VBG HCO3 31.2 H VBG Total CO2 32.4 H VBG O2 Sat (Calc) 98.9 H VBG Base Excess 7.4 H VBG Potassium 3.9 Hgb O2 Saturation 97.0 Sodium 153.0 H Chloride 114.0 H Glucose 137 H Lactate 2.4 H FiO2 50.0 21.0 Potassium Carbon Dioxide Anion Gap BUN Creatinine Est GFR ( Amer) Est GFR (Non-Af Amer) Random Glucose Calcium Phosphorus Magnesium Total Bilirubin AST ALT Alkaline Phosphatase Ammonia 11 Total Creatine Kinase Troponin I Total Protein Albumin Globulin Albumin/Globulin Ratio Triglycerides Cholesterol LDL Cholesterol Direct HDL Cholesterol TSH 3rd Generation Venous Blood Potassium 3.9 Urine Osmolality Ur Random Sodium Ur Random Potassium Salicylates Urine Opiates Screen Urine Methadone Screen Ur Barbiturates Screen Ur Phencyclidine Scrn Ur Amphetamines Screen U Benzodiazepines Scrn U Oth Cocaine Metabols U Cannabinoids Screen Alcohol, Quantitative 06/14/17 06/14/17 06/14/17 02:08 05:30 06:01 WBC RBC Hgb Hct MCV MCH MCHC RDW Plt Count MPV Gran % Lymph % (Auto) Tucker % (Auto) Eos % (Auto) Baso % (Auto) Gran # Lymph # Tucker # Eos # Baso # APTT pCO2 37 pO2 99.0 101 H HCO3 30.9 H ABG pH 7.53 H ABG Total CO2 32.0 H ABG O2 Saturation 99.1 H ABG O2 Content 17.8 ABG Base Excess 7.8 H ABG Hemoglobin 13.1 ABG Carboxyhemoglobin 2.0 H POC ABG HHb (Measured) 0.9 ABG Methemoglobin 1.0 ABG O2 Capacity 18.0 VBG pH 7.52 H VBG pCO2 40.0 VBG HCO3 32.7 H VBG Total CO2 33.9 H VBG O2 Sat (Calc) 99.2 H VBG Base Excess 9.0 H VBG Potassium 4.0 Hgb O2 Saturation 96.2 Sodium 153.0 H Chloride 115.0 H Glucose 145 H Lactate 1.7 FiO2 30.0 21.0 Potassium Carbon Dioxide Anion Gap BUN Creatinine Est GFR ( Amer) Est GFR (Non-Af Amer) Random Glucose Calcium Phosphorus Magnesium Total Bilirubin AST ALT Alkaline Phosphatase Ammonia Total Creatine Kinase 82 Troponin I 0.98 H* D Total Protein Albumin Globulin Albumin/Globulin Ratio Triglycerides Cholesterol LDL Cholesterol Direct HDL Cholesterol TSH 3rd Generation Venous Blood Potassium 4.0 Urine Osmolality Ur Random Sodium Ur Random Potassium Salicylates Urine Opiates Screen Urine Methadone Screen Ur Barbiturates Screen Ur Phencyclidine Scrn Ur Amphetamines Screen U Benzodiazepines Scrn U Oth Cocaine Metabols U Cannabinoids Screen Alcohol, Quantitative 06/14/17 06/14/17 06/14/17 06:05 06:05 08:15 WBC 7.3 RBC 4.74 Hgb 13.4 L D Hct 43.3 MCV 91.4 D MCH 28.3 MCHC 30.9 L RDW 17.3 H Plt Count 177 MPV 10.2 Gran % 88.7 H Lymph % (Auto) 6.9 L Tucker % (Auto) 4.4 Eos % (Auto) 0.0 L Baso % (Auto) 0.0 Gran # 6.44 Lymph # 0.5 L Tucker # 0.3 Eos # 0.0 Baso # 0.00 APTT pCO2 pO2 HCO3 ABG pH ABG Total CO2 ABG O2 Saturation ABG O2 Content ABG Base Excess ABG Hemoglobin ABG Carboxyhemoglobin POC ABG HHb (Measured) ABG Methemoglobin ABG O2 Capacity VBG pH VBG pCO2 VBG HCO3 VBG Total CO2 VBG O2 Sat (Calc) VBG Base Excess VBG Potassium Hgb O2 Saturation Sodium 155 H Chloride 115 H Glucose Lactate FiO2 Potassium 4.0 Carbon Dioxide 31 Anion Gap 13 BUN 30 H Creatinine 1.6 H Est GFR ( Amer) 50 Est GFR (Non-Af Amer) 41 Random Glucose 138 H Calcium 8.4 Phosphorus 2.5 Magnesium 1.9 Total Bilirubin 1.4 H AST 47 ALT 32 Alkaline Phosphatase 210 H Ammonia Total Creatine Kinase 99 Troponin I 1.16 H* Total Protein 6.0 Albumin 2.7 L Globulin 3.3 Albumin/Globulin Ratio 0.8 L Triglycerides 62 Cholesterol 118 L LDL Cholesterol Direct 81 HDL Cholesterol 25 L TSH 3rd Generation Venous Blood Potassium Urine Osmolality Ur Random Sodium Ur Random Potassium Salicylates Urine Opiates Screen Urine Methadone Screen Ur Barbiturates Screen Ur Phencyclidine Scrn Ur Amphetamines Screen U Benzodiazepines Scrn U Oth Cocaine Metabols U Cannabinoids Screen Alcohol, Quantitative 06/14/17 08:15 WBC RBC Hgb Hct MCV MCH MCHC RDW Plt Count MPV Gran % Lymph % (Auto) Tucker % (Auto) Eos % (Auto) Baso % (Auto) Gran # Lymph # Tucker # Eos # Baso # APTT 30.3 pCO2 pO2 HCO3 ABG pH ABG Total CO2 ABG O2 Saturation ABG O2 Content ABG Base Excess ABG Hemoglobin ABG Carboxyhemoglobin POC ABG HHb (Measured) ABG Methemoglobin ABG O2 Capacity VBG pH VBG pCO2 VBG HCO3 VBG Total CO2 VBG O2 Sat (Calc) VBG Base Excess VBG Potassium Hgb O2 Saturation Sodium Chloride Glucose Lactate FiO2 Potassium Carbon Dioxide Anion Gap BUN Creatinine Est GFR ( Amer) Est GFR (Non-Af Amer) Random Glucose Calcium Phosphorus Magnesium Total Bilirubin AST ALT Alkaline Phosphatase Ammonia Total Creatine Kinase Troponin I Total Protein Albumin Globulin Albumin/Globulin Ratio Triglycerides Cholesterol LDL Cholesterol Direct HDL Cholesterol TSH 3rd Generation Venous Blood Potassium Urine Osmolality Ur Random Sodium Ur Random Potassium Salicylates Urine Opiates Screen Urine Methadone Screen Ur Barbiturates Screen Ur Phencyclidine Scrn Ur Amphetamines Screen U Benzodiazepines Scrn U Oth Cocaine Metabols U Cannabinoids Screen Alcohol, Quantitative Assessment & Plan - Assessment and Plan (Free Text) Assessment: 87 yo male patient presenting with infected ulcerations to anterior aspect of bilateral legs Plan: Patient was seen, evaluated and treated with all questions and concerns addressed labs and vitals reviewed Right leg wound culture was collected Bilateral legs dressed with Telfa, DSD Bactroban ordered Continue IV Abx per ID Podiatry will continue to follow in-house <Siri Buitrago - Last Filed: 06/24/17 19:38> Results - Vital Signs Recent Vital Signs: Last Vital Signs Temp 97.6 F 06/23/17 07:30 Pulse 69 06/23/17 09:56 Resp 18 06/23/17 07:30 BP 180/78 H 06/23/17 09:56 Pulse Ox 94 L 06/23/17 07:30 - Labs Result Diagrams: 06/23/17 10:30 06/23/17 10:30 Attending/Attestation - Attestation I have personally seen and examined this patient.: Yes I have fully participated in the care of the patient.: Yes I have reviewed all pertinent clinical information: Yes
--- NOTE | 2017-06-14 11:16 | MRI ---
PROCEDURE: MRI BRAIN WITHOUT CONTRAST HISTORY: r/o cva vs ICH COMPARISON: None. TECHNIQUE: Multiplanar, multisequence MR images of the brain were obtained without intravenous contrast enhancement. FINDINGS: HEMORRHAGE: None DWI: No evidence of an acute or early subacute infarction. BRAIN PARENCHYMA: No mass effect or edema. Chronic microvascular changes in the periventricular white matter. No acute intracranial findings VENTRICLES: Unremarkable. No hydrocephalus. CRANIUM: Unremarkable. ORBITS: Grossly unremarkable. PARANASAL SINUSES/MASTOIDS: Clear VASCULAR SYSTEM: Skull base flow voids intact. OTHER FINDINGS: None. IMPRESSION: Chronic microvascular changes. No acute intracranial findings
--- NOTE | 2017-06-14 11:22 | MRI ---
PROCEDURE: Magnetic Resonance Angiography Brain HISTORY: AMS, Head CT lacunar infarct left cerebellar lobe COMPARISON: None available. TECHNIQUE: 3D time of flight MR angiography of the intracranial arteries was performed. Rotating maximum intensity projection images were generated. FINDINGS: INTERNAL CEREBRAL ARTERIES: Unremarkable. The skull base, petrous, cavernous and supraclinoid segments are bilaterally widely patient. ANTERIOR CEREBRAL ARTERIES: Unremarkable. A1 and A2 segments are widely patent. Smaller distal branches unremarkable, as visualized. MIDDLE CEREBRAL ARTERIES: Unremarkable. M1 and M2 segments are widely patent. Perisylvian branches grossly symmetric. POSTERIOR CIRCULATION: Basilar Artery: Unremarkable. Distal Vertebral Arteries: Unremarkable. Posterior Cerebral Arteries: Unremarkable. Posterior Inferior Cerebellar Arteries: Unremarkable. ANEURYSM/ VASCULAR MALFORMATIONS: None. OTHER FINDINGS: None. IMPRESSION: Unremarkable MR angiography of the brain.
--- NOTE | 2017-06-14 13:31 | CP.PCM.CON ---
<Cole Santos - Last Filed: 06/14/17 13:46> History of Present Illness - History of Present Illness History of Present Illness: Neurology Consult Note for Dr. Castro 87 y/o M with PMH of COPD, CHF, HTN, Paget's disease and PAD presented initially with lethargy and AMS. Patient began to deteriorate in the ED as 02 sats dropped to the 50's. Patient was given narcan and did not become more arousable. Pt was then intubated for airway protection. Patient was then taken to the ICU for further monitoring. Patient was placed on Versed drip for sedation. Medical information provided was from prior medical records due to patients acute state of distress. PMH: COPD, CHF, HTN, Paget's disease, NSTEMI, PAD FMH: Noncontributory Social Hx: Former smoker, no alcohol or drug use ALL: NKDA Meds: Reviewed, as per chart Review of Systems - Review of Systems Systems not reviewed;Unavailable: Intubated Past Patient History - Past Social History Smoking Status: Former Smoker Alcohol: None Drugs: Other (no record of ID usage) - CARDIAC Hx Cardiac Disorders: Yes Hx Congestive Heart Failure: Yes Hx Hypercholesterolemia: Yes Hx Hypertension: Yes Other/Comment: mild mi 2011 - PULMONARY Hx Respiratory Disorders: Yes Hx Chronic Obstructive Pulmonary Disease (COPD): Yes Other/Comment: ex smoke 3months ago - NEUROLOGICAL Hx Neurological Disorder: No - HEENT Hx HEENT Problems: Yes Hx Deafness: Yes ([place]) Other/Comment: glasses - RENAL Hx Chronic Kidney Disease: No - ENDOCRINE/METABOLIC Hx Endocrine Disorders: No - HEMATOLOGICAL/ONCOLOGICAL Hx Blood Disorders: No - INTEGUMENTARY Hx Dermatological Problems: No - MUSCULOSKELETAL/RHEUMATOLOGICAL Hx Musculoskeletal Disorders: Yes Hx Falls: Yes - GASTROINTESTINAL Hx Gastrointestinal Disorders: No - GENITOURINARY/GYNECOLOGICAL Hx Genitourinary Disorders: Yes Hx Prostate Problems: Yes - PSYCHIATRIC Hx Psychophysiologic Disorder: No - SURGICAL HISTORY Hx Surgeries: Yes Other/Comment: Stents in legs - ANESTHESIA Hx Anesthesia Reactions: No Hx Malignant Hyperthermia: No Meds Allergies/Adverse Reactions: Allergies Allergy/AdvReac Type Severity Reaction Status Date / Time No Known Allergies Allergy Verified 06/13/17 17:29 - Medications Medications: Current Medications Albuterol/Ipratropium (Duoneb 3 Mg/0.5 Mg (3 Ml) Ud) 3 ml IH [id number] [facility] Last Admin: 06/14/17 07:05 Dose: 3 ml Albuterol/Ipratropium (Duoneb 3 Mg/0.5 Mg (3 Ml) Ud) 3 ml IH Q2H PRN PRN Reason: Shortness of Breath Aspirin (Ecotrin) 81 mg PO DAILY [facility] Last Admin: 06/14/17 11:36 Dose: 81 mg Atorvastatin Calcium (Lipitor) 10 mg PO DAILY [facility] Last Admin: 06/14/17 09:27 Dose: 10 mg Clopidogrel Bisulfate (Plavix) 75 mg PO DAILY [facility] Last Admin: 06/14/17 11:36 Dose: 75 mg Furosemide (Lasix) 40 mg IVP DAILY [facility] Last Admin: 06/14/17 11:43 Dose: Not Given Hydralazine HCl (Apresoline) 10 mg IVP Q6 PRN PRN Reason: high blood pressure Heparin Sodium/Dextrose (Heparin 25,000 Units/250ml In D5w) 25,000 units in 250 mls @ 7.914 mls/hr IV .Q24H REEMA; 12 UNITS/KG/HR PRN Reason: Protocol Last Admin: 06/14/17 06:54 Dose: 12 units/kg/hr, 7.914 mls/hr Dextrose (Dextrose 5% In Water 1000 Ml) 1,000 mls @ 150 mls/hr IV .Q6H40M [facility] Last Admin: 06/14/17 08:33 Dose: 150 mls/hr Isosorbide Mononitrate (Imdur) 60 mg PO DAILY [facility] Methylprednisolone (Solu-Medrol) 40 mg IVP Q8 [facility] Last Admin: 06/14/17 05:27 Dose: 40 mg Metoprolol Tartrate (Lopressor) 5 mg IV Q8H [facility] Last Admin: 06/14/17 09:03 Dose: 5 mg Mupirocin (Bactroban Ointment) 0 gm TOP BID [facility] Last Admin: 06/14/17 10:00 Dose: 1 applic Pantoprazole Sodium (Protonix Susp) 40 mg GT 0600 [facility] Last Admin: 06/14/17 05:27 Dose: 40 mg Physical Exam - Constitutional Appears: In Acute Distress - Head Exam Head Exam: ATRAUMATIC, NORMAL INSPECTION, NORMOCEPHALIC - Eye Exam Eye Exam: Normal appearance Pupil Exam: Miosis - ENT Exam ENT Exam: Mucous Membranes Moist - Neck Exam Neck exam: Positive for: Normal Inspection. Negative for: Lymphadenopathy - Respiratory Exam Respiratory Exam: Clear to Auscultation Bilateral, NORMAL BREATHING PATTERN - Cardiovascular Exam Cardiovascular Exam: RRR, +S1, +S2 - GI/Abdominal Exam GI & Abdominal Exam: Normal Bowel Sounds, Soft. absent: Tenderness - Extremities Exam Extremities exam: Positive for: normal inspection. Negative for: calf tenderness, pedal edema - Neurological Exam Additional comments: Intubated and sedated Moves all 4 limbs spontaneously Withdraws from painful stimuli - Skin Skin Exam: Intact, Normal Color, Warm Results - Vital Signs Recent Vital Signs: Last Vital Signs Temp 98 F 06/14/17 00:00 Pulse 64 06/14/17 11:40 Resp 18 06/14/17 10:34 BP 161/70 H 06/14/17 11:30 Pulse Ox 97 06/14/17 11:40 - Labs Result Diagrams: 06/14/17 06:05 06/14/17 06:05 Labs: Laboratory Results - last 24 hr 06/13/17 06/13/17 06/13/17 22:07 22:07 22:07 WBC RBC Hgb Hct MCV MCH MCHC RDW Plt Count MPV Gran % Lymph % (Auto) [place] % (Auto) Eos % (Auto) Baso % (Auto) Gran # Lymph # [place] # Eos # Baso # APTT pCO2 pO2 49 HCO3 ABG pH ABG Total CO2 ABG O2 Saturation ABG O2 Content ABG Base Excess ABG Hemoglobin ABG Carboxyhemoglobin POC ABG HHb (Measured) ABG Methemoglobin ABG O2 Capacity VBG pH 7.39 VBG pCO2 50.0 VBG HCO3 30.3 H VBG Total CO2 31.8 H VBG O2 Sat (Calc) 88.8 H VBG Base Excess 4.2 H VBG Potassium 5.1 Hgb O2 Saturation Sodium 151.0 H Chloride 111.0 H Glucose 177 H Lactate 2.9 H FiO2 21.0 Potassium Carbon Dioxide Anion Gap BUN Creatinine Est GFR ( Amer) Est GFR (Non-Af Amer) Random Glucose Calcium Phosphorus Magnesium Total Bilirubin AST ALT Alkaline Phosphatase Ammonia Total Creatine Kinase Troponin I Total Protein Albumin Globulin Albumin/Globulin Ratio Triglycerides Cholesterol LDL Cholesterol Direct HDL Cholesterol TSH 3rd Generation Venous Blood Potassium 5.1 Urine Osmolality Ur Random Sodium Ur Random Potassium Salicylates < 1 L Urine Opiates Screen Urine Methadone Screen Ur Barbiturates Screen Ur Phencyclidine Scrn Ur Amphetamines Screen U Benzodiazepines Scrn U Oth Cocaine Metabols U Cannabinoids Screen Alcohol, Quantitative < 10 06/13/17 06/13/17 06/13/17 22:30 22:59 22:59 WBC RBC Hgb Hct MCV MCH MCHC RDW Plt Count MPV Gran % Lymph % (Auto) [place] % (Auto) Eos % (Auto) Baso % (Auto) Gran # Lymph # [place] # Eos # Baso # APTT pCO2 pO2 HCO3 ABG pH ABG Total CO2 ABG O2 Saturation ABG O2 Content ABG Base Excess ABG Hemoglobin ABG Carboxyhemoglobin POC ABG HHb (Measured) ABG Methemoglobin ABG O2 Capacity VBG pH VBG pCO2 VBG HCO3 VBG Total CO2 VBG O2 Sat (Calc) VBG Base Excess VBG Potassium Hgb O2 Saturation Sodium Chloride Glucose Lactate FiO2 Potassium Carbon Dioxide Anion Gap BUN Creatinine Est GFR ( Amer) Est GFR (Non-Af Amer) Random Glucose Calcium Phosphorus Magnesium Total Bilirubin AST ALT Alkaline Phosphatase Ammonia Total Creatine Kinase Troponin I Total Protein Albumin Globulin Albumin/Globulin Ratio Triglycerides Cholesterol LDL Cholesterol Direct HDL Cholesterol TSH 3rd Generation 3.08 Venous Blood Potassium Urine Osmolality 326 Ur Random Sodium 111 Ur Random Potassium 37.9 Salicylates Urine Opiates Screen Negative Urine Methadone Screen Negative Ur Barbiturates Screen Negative Ur Phencyclidine Scrn Negative Ur Amphetamines Screen Negative U Benzodiazepines Scrn Positive H U Oth Cocaine Metabols Negative U Cannabinoids Screen Negative Alcohol, Quantitative 06/13/17 06/13/17 06/14/17 23:40 23:45 02:08 WBC RBC Hgb Hct MCV MCH MCHC RDW Plt Count MPV Gran % Lymph % (Auto) [place] % (Auto) Eos % (Auto) Baso % (Auto) Gran # Lymph # [place] # Eos # Baso # APTT pCO2 43 pO2 230.0 H 91 H HCO3 29.9 H ABG pH 7.45 ABG Total CO2 31.2 H ABG O2 Saturation 100.1 H ABG O2 Content 19.3 ABG Base Excess 5.2 H ABG Hemoglobin 13.8 ABG Carboxyhemoglobin 2.1 H POC ABG HHb (Measured) -0.1 L ABG Methemoglobin 1.0 ABG O2 Capacity 19.3 VBG pH 7.50 H VBG pCO2 40.0 VBG HCO3 31.2 H VBG Total CO2 32.4 H VBG O2 Sat (Calc) 98.9 H VBG Base Excess 7.4 H VBG Potassium 3.9 Hgb O2 Saturation 97.0 Sodium 153.0 H Chloride 114.0 H Glucose 137 H Lactate 2.4 H FiO2 50.0 21.0 Potassium Carbon Dioxide Anion Gap BUN Creatinine Est GFR ( Amer) Est GFR (Non-Af Amer) Random Glucose Calcium Phosphorus Magnesium Total Bilirubin AST ALT Alkaline Phosphatase Ammonia 11 Total Creatine Kinase Troponin I Total Protein Albumin Globulin Albumin/Globulin Ratio Triglycerides Cholesterol LDL Cholesterol Direct HDL Cholesterol TSH 3rd Generation Venous Blood Potassium 3.9 Urine Osmolality Ur Random Sodium Ur Random Potassium Salicylates Urine Opiates Screen Urine Methadone Screen Ur Barbiturates Screen Ur Phencyclidine Scrn Ur Amphetamines Screen U Benzodiazepines Scrn U Oth Cocaine Metabols U Cannabinoids Screen Alcohol, Quantitative 06/14/17 06/14/17 06/14/17 02:08 05:30 06:01 WBC RBC Hgb Hct MCV MCH MCHC RDW Plt Count MPV Gran % Lymph % (Auto) [place] % (Auto) Eos % (Auto) Baso % (Auto) Gran # Lymph # [place] # Eos # Baso # APTT pCO2 37 pO2 99.0 101 H HCO3 30.9 H ABG pH 7.53 H ABG Total CO2 32.0 H ABG O2 Saturation 99.1 H ABG O2 Content 17.8 ABG Base Excess 7.8 H ABG Hemoglobin 13.1 ABG Carboxyhemoglobin 2.0 H POC ABG HHb (Measured) 0.9 ABG Methemoglobin 1.0 ABG O2 Capacity 18.0 VBG pH 7.52 H VBG pCO2 40.0 VBG HCO3 32.7 H VBG Total CO2 33.9 H VBG O2 Sat (Calc) 99.2 H VBG Base Excess 9.0 H VBG Potassium 4.0 Hgb O2 Saturation 96.2 Sodium 153.0 H Chloride 115.0 H Glucose 145 H Lactate 1.7 FiO2 30.0 21.0 Potassium Carbon Dioxide Anion Gap BUN Creatinine Est GFR ( Amer) Est GFR (Non-Af Amer) Random Glucose Calcium Phosphorus Magnesium Total Bilirubin AST ALT Alkaline Phosphatase Ammonia Total Creatine Kinase 82 Troponin I 0.98 H* D Total Protein Albumin Globulin Albumin/Globulin Ratio Triglycerides Cholesterol LDL Cholesterol Direct HDL Cholesterol TSH 3rd Generation Venous Blood Potassium 4.0 Urine Osmolality Ur Random Sodium Ur Random Potassium Salicylates Urine Opiates Screen Urine Methadone Screen Ur Barbiturates Screen Ur Phencyclidine Scrn Ur Amphetamines Screen U Benzodiazepines Scrn U Oth Cocaine Metabols U Cannabinoids Screen Alcohol, Quantitative 06/14/17 06/14/17 06/14/17 06:05 06:05 08:15 WBC 7.3 RBC 4.74 Hgb 13.4 L D Hct 43.3 MCV 91.4 D MCH 28.3 MCHC 30.9 L RDW 17.3 H Plt Count 177 MPV 10.2 Gran % 88.7 H Lymph % (Auto) 6.9 L [place] % (Auto) 4.4 Eos % (Auto) 0.0 L Baso % (Auto) 0.0 Gran # 6.44 Lymph # 0.5 L [place] # 0.3 Eos # 0.0 Baso # 0.00 APTT pCO2 pO2 HCO3 ABG pH ABG Total CO2 ABG O2 Saturation ABG O2 Content ABG Base Excess ABG Hemoglobin ABG Carboxyhemoglobin POC ABG HHb (Measured) ABG Methemoglobin ABG O2 Capacity VBG pH VBG pCO2 VBG HCO3 VBG Total CO2 VBG O2 Sat (Calc) VBG Base Excess VBG Potassium Hgb O2 Saturation Sodium 155 H Chloride 115 H Glucose Lactate FiO2 Potassium 4.0 Carbon Dioxide 31 Anion Gap 13 BUN 30 H Creatinine 1.6 H Est GFR ( Amer) 50 Est GFR (Non-Af Amer) 41 Random Glucose 138 H Calcium 8.4 Phosphorus 2.5 Magnesium 1.9 Total Bilirubin 1.4 H AST 47 ALT 32 Alkaline Phosphatase 210 H Ammonia Total Creatine Kinase 99 Troponin I 1.16 H* Total Protein 6.0 Albumin 2.7 L Globulin 3.3 Albumin/Globulin Ratio 0.8 L Triglycerides 62 Cholesterol 118 L LDL Cholesterol Direct 81 HDL Cholesterol 25 L TSH 3rd Generation Venous Blood Potassium Urine Osmolality Ur Random Sodium Ur Random Potassium Salicylates Urine Opiates Screen Urine Methadone Screen Ur Barbiturates Screen Ur Phencyclidine Scrn Ur Amphetamines Screen U Benzodiazepines Scrn U Oth Cocaine Metabols U Cannabinoids Screen Alcohol, Quantitative 06/14/17 08:15 WBC RBC Hgb Hct MCV MCH MCHC RDW Plt Count MPV Gran % Lymph % (Auto) [place] % (Auto) Eos % (Auto) Baso % (Auto) Gran # Lymph # [place] # Eos # Baso # APTT 30.3 pCO2 pO2 HCO3 ABG pH ABG Total CO2 ABG O2 Saturation ABG O2 Content ABG Base Excess ABG Hemoglobin ABG Carboxyhemoglobin POC ABG HHb (Measured) ABG Methemoglobin ABG O2 Capacity VBG pH VBG pCO2 VBG HCO3 VBG Total CO2 VBG O2 Sat (Calc) VBG Base Excess VBG Potassium Hgb O2 Saturation Sodium Chloride Glucose Lactate FiO2 Potassium Carbon Dioxide Anion Gap BUN Creatinine Est GFR ( Amer) Est GFR (Non-Af Amer) Random Glucose Calcium Phosphorus Magnesium Total Bilirubin AST ALT Alkaline Phosphatase Ammonia Total Creatine Kinase Troponin I Total Protein Albumin Globulin Albumin/Globulin Ratio Triglycerides Cholesterol LDL Cholesterol Direct HDL Cholesterol TSH 3rd Generation Venous Blood Potassium Urine Osmolality Ur Random Sodium Ur Random Potassium Salicylates Urine Opiates Screen Urine Methadone Screen Ur Barbiturates Screen Ur Phencyclidine Scrn Ur Amphetamines Screen U Benzodiazepines Scrn U Oth Cocaine Metabols U Cannabinoids Screen Alcohol, Quantitative Assessment & Plan - Assessment and Plan (Free Text) Plan: 87 y/o M with PMH of COPD, CHF, HTN, Paget's disease and PAD presents with acute hypoxemic respiratory failure and AMS secondary to metabolic encephalopathy in the setting of cardiomyopathy. Metabolic derangement in addition to cardiomyopathy places patient at risk for poor cerebral perfusion and stroke. Head CT showed small hypodense lacunar infarct within the left cerebellar lobe which appears to be subacute. Another hypodensity also found within the right cerebellar lobe. Follow up Head MRA and Brain MRI negative for any acute intracranial findings. Patient will continue to be monitored closely. Plan: EEG Start ASA and Plavix Start Lipitor Monitor electrolytes and correct accordingly Danielle, PGY-2 <Shakeel Castro - Last Filed: 06/14/17 14:10> Meds - Medications Medications: Current Medications Albuterol/Ipratropium (Duoneb 3 Mg/0.5 Mg (3 Ml) Ud) 3 ml IH [id number] [facility] Last Admin: 06/14/17 13:21 Dose: 3 ml Albuterol/Ipratropium (Duoneb 3 Mg/0.5 Mg (3 Ml) Ud) 3 ml IH Q2H PRN PRN Reason: Shortness of Breath Aspirin (Ecotrin) 81 mg PO DAILY [facility] Last Admin: 06/14/17 11:36 Dose: 81 mg Atorvastatin Calcium (Lipitor) 10 mg PO DAILY [facility] Last Admin: 06/14/17 09:27 Dose: 10 mg Clopidogrel Bisulfate (Plavix) 75 mg PO DAILY [facility] Last Admin: 06/14/17 11:36 Dose: 75 mg Furosemide (Lasix) 40 mg IVP DAILY [facility] Last Admin: 06/14/17 11:43 Dose: Not Given Hydralazine HCl (Apresoline) 10 mg IVP Q6 PRN PRN Reason: high blood pressure Heparin Sodium/Dextrose (Heparin 25,000 Units/250ml In D5w) 25,000 units in 250 mls @ 7.914 mls/hr IV .Q24H [facility]; 12 UNITS/KG/HR PRN Reason: Protocol Last Admin: 06/14/17 06:54 Dose: 12 units/kg/hr, 7.914 mls/hr Dextrose (Dextrose 5% In Water 1000 Ml) 1,000 mls @ 150 mls/hr IV .Q6H40M [facility] Last Admin: 06/14/17 08:33 Dose: 150 mls/hr Isosorbide Mononitrate (Imdur) 60 mg PO DAILY [facility] Last Admin: 06/14/17 13:24 Dose: Not Given Methylprednisolone (Solu-Medrol) 40 mg IVP Q8 [facility] Last Admin: 06/14/17 13:25 Dose: 40 mg Metoprolol Tartrate (Lopressor) 5 mg IV Q8H [facility] Last Admin: 06/14/17 09:03 Dose: 5 mg Mupirocin (Bactroban Ointment) 0 gm TOP BID [facility] Last Admin: 06/14/17 10:00 Dose: 1 applic Pantoprazole Sodium (Protonix Susp) 40 mg GT 0600 [facility] Last Admin: 06/14/17 05:27 Dose: 40 mg Results - Vital Signs Recent Vital Signs: Last Vital Signs Temp 98 F 06/14/17 00:00 Pulse 64 06/14/17 11:40 Resp 18 06/14/17 10:34 BP 161/70 H 06/14/17 11:30 Pulse Ox 97 06/14/17 11:40 - Labs Result Diagrams: 06/14/17 06:05 06/14/17 06:05 Labs: Laboratory Results - last 24 hr 06/13/17 06/13/17 06/13/17 22:07 22:07 22:07 WBC RBC Hgb Hct MCV MCH MCHC RDW Plt Count MPV Gran % Lymph % (Auto) [place] % (Auto) Eos % (Auto) Baso % (Auto) Gran # Lymph # [place] # Eos # Baso # APTT pCO2 pO2 49 HCO3 ABG pH ABG Total CO2 ABG O2 Saturation ABG O2 Content ABG Base Excess ABG Hemoglobin ABG Carboxyhemoglobin POC ABG HHb (Measured) ABG Methemoglobin ABG O2 Capacity VBG pH 7.39 VBG pCO2 50.0 VBG HCO3 30.3 H VBG Total CO2 31.8 H VBG O2 Sat (Calc) 88.8 H VBG Base Excess 4.2 H VBG Potassium 5.1 Hgb O2 Saturation Sodium 151.0 H Chloride 111.0 H Glucose 177 H Lactate 2.9 H FiO2 21.0 Potassium Carbon Dioxide Anion Gap BUN Creatinine Est GFR ( Amer) Est GFR (Non-Af Amer) Random Glucose Calcium Phosphorus Magnesium Total Bilirubin AST ALT Alkaline Phosphatase Ammonia Total Creatine Kinase Troponin I Total Protein Albumin Globulin Albumin/Globulin Ratio Triglycerides Cholesterol LDL Cholesterol Direct HDL Cholesterol TSH 3rd Generation Venous Blood Potassium 5.1 Urine Osmolality Ur Random Sodium Ur Random Potassium Salicylates < 1 L Urine Opiates Screen Urine Methadone Screen Ur Barbiturates Screen Ur Phencyclidine Scrn Ur Amphetamines Screen U Benzodiazepines Scrn U Oth Cocaine Metabols U Cannabinoids Screen Alcohol, Quantitative < 10 06/13/17 06/13/17 06/13/17 22:30 22:59 22:59 WBC RBC Hgb Hct MCV MCH MCHC RDW Plt Count MPV Gran % Lymph % (Auto) [place] % (Auto) Eos % (Auto) Baso % (Auto) Gran # Lymph # [place] # Eos # Baso # APTT pCO2 pO2 HCO3 ABG pH ABG Total CO2 ABG O2 Saturation ABG O2 Content ABG Base Excess ABG Hemoglobin ABG Carboxyhemoglobin POC ABG HHb (Measured) ABG Methemoglobin ABG O2 Capacity VBG pH VBG pCO2 VBG HCO3 VBG Total CO2 VBG O2 Sat (Calc) VBG Base Excess VBG Potassium Hgb O2 Saturation Sodium Chloride Glucose Lactate FiO2 Potassium Carbon Dioxide Anion Gap BUN Creatinine Est GFR ( Amer) Est GFR (Non-Af Amer) Random Glucose Calcium Phosphorus Magnesium Total Bilirubin AST ALT Alkaline Phosphatase Ammonia Total Creatine Kinase Troponin I Total Protein Albumin Globulin Albumin/Globulin Ratio Triglycerides Cholesterol LDL Cholesterol Direct HDL Cholesterol TSH 3rd Generation 3.08 Venous Blood Potassium Urine Osmolality 326 Ur Random Sodium 111 Ur Random Potassium 37.9 Salicylates Urine Opiates Screen Negative Urine Methadone Screen Negative Ur Barbiturates Screen Negative Ur Phencyclidine Scrn Negative Ur Amphetamines Screen Negative U Benzodiazepines Scrn Positive H U Oth Cocaine Metabols Negative U Cannabinoids Screen Negative Alcohol, Quantitative 06/13/17 06/13/17 06/14/17 23:40 23:45 02:08 WBC RBC Hgb Hct MCV MCH MCHC RDW Plt Count MPV Gran % Lymph % (Auto) [place] % (Auto) Eos % (Auto) Baso % (Auto) Gran # Lymph # [place] # Eos # Baso # APTT pCO2 43 pO2 230.0 H 91 H HCO3 29.9 H ABG pH 7.45 ABG Total CO2 31.2 H ABG O2 Saturation 100.1 H ABG O2 Content 19.3 ABG Base Excess 5.2 H ABG Hemoglobin 13.8 ABG Carboxyhemoglobin 2.1 H POC ABG HHb (Measured) -0.1 L ABG Methemoglobin 1.0 ABG O2 Capacity 19.3 VBG pH 7.50 H VBG pCO2 40.0 VBG HCO3 31.2 H VBG Total CO2 32.4 H VBG O2 Sat (Calc) 98.9 H VBG Base Excess 7.4 H VBG Potassium 3.9 Hgb O2 Saturation 97.0 Sodium 153.0 H Chloride 114.0 H Glucose 137 H Lactate 2.4 H FiO2 50.0 21.0 Potassium Carbon Dioxide Anion Gap BUN Creatinine Est GFR ( Amer) Est GFR (Non-Af Amer) Random Glucose Calcium Phosphorus Magnesium Total Bilirubin AST ALT Alkaline Phosphatase Ammonia 11 Total Creatine Kinase Troponin I Total Protein Albumin Globulin Albumin/Globulin Ratio Triglycerides Cholesterol LDL Cholesterol Direct HDL Cholesterol TSH 3rd Generation Venous Blood Potassium 3.9 Urine Osmolality Ur Random Sodium Ur Random Potassium Salicylates Urine Opiates Screen Urine Methadone Screen Ur Barbiturates Screen Ur Phencyclidine Scrn Ur Amphetamines Screen U Benzodiazepines Scrn U Oth Cocaine Metabols U Cannabinoids Screen Alcohol, Quantitative 06/14/17 06/14/17 06/14/17 02:08 05:30 06:01 WBC RBC Hgb Hct MCV MCH MCHC RDW Plt Count MPV Gran % Lymph % (Auto) [place] % (Auto) Eos % (Auto) Baso % (Auto) Gran # Lymph # [place] # Eos # Baso # APTT pCO2 37 pO2 99.0 101 H HCO3 30.9 H ABG pH 7.53 H ABG Total CO2 32.0 H ABG O2 Saturation 99.1 H ABG O2 Content 17.8 ABG Base Excess 7.8 H ABG Hemoglobin 13.1 ABG Carboxyhemoglobin 2.0 H POC ABG HHb (Measured) 0.9 ABG Methemoglobin 1.0 ABG O2 Capacity 18.0 VBG pH 7.52 H VBG pCO2 40.0 VBG HCO3 32.7 H VBG Total CO2 33.9 H VBG O2 Sat (Calc) 99.2 H VBG Base Excess 9.0 H VBG Potassium 4.0 Hgb O2 Saturation 96.2 Sodium 153.0 H Chloride 115.0 H Glucose 145 H Lactate 1.7 FiO2 30.0 21.0 Potassium Carbon Dioxide Anion Gap BUN Creatinine Est GFR ( Amer) Est GFR (Non-Af Amer) Random Glucose Calcium Phosphorus Magnesium Total Bilirubin AST ALT Alkaline Phosphatase Ammonia Total Creatine Kinase 82 Troponin I 0.98 H* D Total Protein Albumin Globulin Albumin/Globulin Ratio Triglycerides Cholesterol LDL Cholesterol Direct HDL Cholesterol TSH 3rd Generation Venous Blood Potassium 4.0 Urine Osmolality Ur Random Sodium Ur Random Potassium Salicylates Urine Opiates Screen Urine Methadone Screen Ur Barbiturates Screen Ur Phencyclidine Scrn Ur Amphetamines Screen U Benzodiazepines Scrn U Oth Cocaine Metabols U Cannabinoids Screen Alcohol, Quantitative 06/14/17 06/14/17 06/14/17 06:05 06:05 08:15 WBC 7.3 RBC 4.74 Hgb 13.4 L D Hct 43.3 MCV 91.4 D MCH 28.3 MCHC 30.9 L RDW 17.3 H Plt Count 177 MPV 10.2 Gran % 88.7 H Lymph % (Auto) 6.9 L [place] % (Auto) 4.4 Eos % (Auto) 0.0 L Baso % (Auto) 0.0 Gran # 6.44 Lymph # 0.5 L [place] # 0.3 Eos # 0.0 Baso # 0.00 APTT pCO2 pO2 HCO3 ABG pH ABG Total CO2 ABG O2 Saturation ABG O2 Content ABG Base Excess ABG Hemoglobin ABG Carboxyhemoglobin POC ABG HHb (Measured) ABG Methemoglobin ABG O2 Capacity VBG pH VBG pCO2 VBG HCO3 VBG Total CO2 VBG O2 Sat (Calc) VBG Base Excess VBG Potassium Hgb O2 Saturation Sodium 155 H Chloride 115 H Glucose Lactate FiO2 Potassium 4.0 Carbon Dioxide 31 Anion Gap 13 BUN 30 H Creatinine 1.6 H Est GFR ( Amer) 50 Est GFR (Non-Af Amer) 41 Random Glucose 138 H Calcium 8.4 Phosphorus 2.5 Magnesium 1.9 Total Bilirubin 1.4 H AST 47 ALT 32 Alkaline Phosphatase 210 H Ammonia Total Creatine Kinase 99 Troponin I 1.16 H* Total Protein 6.0 Albumin 2.7 L Globulin 3.3 Albumin/Globulin Ratio 0.8 L Triglycerides 62 Cholesterol 118 L LDL Cholesterol Direct 81 HDL Cholesterol 25 L TSH 3rd Generation Venous Blood Potassium Urine Osmolality Ur Random Sodium Ur Random Potassium Salicylates Urine Opiates Screen Urine Methadone Screen Ur Barbiturates Screen Ur Phencyclidine Scrn Ur Amphetamines Screen U Benzodiazepines Scrn U Oth Cocaine Metabols U Cannabinoids Screen Alcohol, Quantitative 06/14/17 08:15 WBC RBC Hgb Hct MCV MCH MCHC RDW Plt Count MPV Gran % Lymph % (Auto) [place] % (Auto) Eos % (Auto) Baso % (Auto) Gran # Lymph # [place] # Eos # Baso # APTT 30.3 pCO2 pO2 HCO3 ABG pH ABG Total CO2 ABG O2 Saturation ABG O2 Content ABG Base Excess ABG Hemoglobin ABG Carboxyhemoglobin POC ABG HHb (Measured) ABG Methemoglobin ABG O2 Capacity VBG pH VBG pCO2 VBG HCO3 VBG Total CO2 VBG O2 Sat (Calc) VBG Base Excess VBG Potassium Hgb O2 Saturation Sodium Chloride Glucose Lactate FiO2 Potassium Carbon Dioxide Anion Gap BUN Creatinine Est GFR ( Amer) Est GFR (Non-Af Amer) Random Glucose Calcium Phosphorus Magnesium Total Bilirubin AST ALT Alkaline Phosphatase Ammonia Total Creatine Kinase Troponin I Total Protein Albumin Globulin Albumin/Globulin Ratio Triglycerides Cholesterol LDL Cholesterol Direct HDL Cholesterol TSH 3rd Generation Venous Blood Potassium Urine Osmolality Ur Random Sodium Ur Random Potassium Salicylates Urine Opiates Screen Urine Methadone Screen Ur Barbiturates Screen Ur Phencyclidine Scrn Ur Amphetamines Screen U Benzodiazepines Scrn U Oth Cocaine Metabols U Cannabinoids Screen Alcohol, Quantitative Attending/Attestation - Attestation I have personally seen and examined this patient.: Yes I have fully participated in the care of the patient.: Yes I have reviewed all pertinent clinical information: Yes
--- NOTE | 2017-06-14 14:16 | CP.PCM.CON ---
History of Present Illness - History of Present Illness History of Present Illness: Initial Nephrology Consultation: Assessment: Critical Acute Hypercapnic respi failure s/p mechanical intubation. now with post- hypercapnic metabolic alkalosis Acute Kidney Injury (N17.9) likely due to dehydration as evident by Hypernatremia. Hyperkalemia Hypertensive Chronic Kidney Disease (I12.9) Chronic Kidney Disease (N18.9) Stage 3 with ? mg proteinuria (R80.9) possibly due to HTN/vasc disease HTN (I12.9), pulm fibrosis, sys CHF, bladder tumor, b/l kidney cysts Altered mental status NSTEMI Plan No acute need for renal replacement therapy at this time. Hypertension control with meds as ordered. Patient not on ACEI/ARB due to JASWINDER Monitor Input/Output, daily weights and renal function with basic metabolic panel Agree with hypotnic fluid as D5w @ 100 ml/hr. consider to d/c lasix as pt need IV fluid. may resume lasix later if any evidence of fluid overload Check urine analysis, spot protein/creatinine and albumin/creatinine ratio, uric acid. Check GN work up as C3, C4, ANCA (MPO and CO-3) Dose meds/antibiotics for reduced GFR. Avoid fleets enema/magnesium based laxatives. Avoid nephrotoxins/NSAIDs/ iodinated contrast (unless needed emergently) Glycemic control Further work up/management as per primary team Thanks for allowing me to participate in care of your patient. Will follow patient with you. Please call if any Qs. d/w ICU team Dr Edvin Nj Office: [phone] Chief Complaint; Unable Source of Info: EMR. pt unable HPI: Pt is a 87 y/o M with hx of CHF (EF 30-35%), COPD with pulmonary fibrosis, CKD stage 3 (baseline cr 1.1-1.4 mg/dL), HTN, bladder tumor came to ER with altered mental status and shortness of breath and intubated for hypercapnic respi failure, transferred to ICU, renal consult requested for hypernatremia and JASWINDER. getting EEG for AMS. ROS: Unable to obtain as pt intubated and no family members bedside Physical Examination: General Appearance: Comfortable, in no acute respiratory distress. pt intubated orally Vitals reviewed and noted as below Head; Atraumatic, normocephalic ENT: orally intubated. EYES: Pupils are sluggish to react to light, constricted. Neck; supple no lymphadenopathy, no thyromegaly or bruit Lungs: Normal respiratory rate/effort. Breath sounds bilateral somewhat decreased at bases Heart: Normal rate. s1s2 normal. No rub or gallop. SM at left sternal border Extremities: no edema. No varicose veins. has chronic venous stasis changes. both legs dressed, known to have chronic leg wounds Neurological: Patient is unresponsive Skin: Warm and dry. Normal turgor. No rash. Palpitation: Normal elasticity for age Abdomen: Abdomen is soft. Bowel sounds +. There is no abdominal tenderness, no guarding/rigidity no organomegaly Psych: Unable MSK: no joint tenderness or swelling. Digits and nails normal, no deformity : kidney or bladder not palpable. has swanson Labs/imaging/EKG reviewed. Past medical history, past surgical history, family history, social history, allergy reviewed and noted as below Family hx: Unable to obtain Work up UA done by me showed 30+ protein large blood and LE ++ SG 1.025. microscopy showed very few granular casts, numerous WBCs and also monomorphic RBCs renal sono 2016: b/l renal cysts Past Patient History - Past Social History Smoking Status: Former Smoker Alcohol: None Drugs: Other (no record of ID usage) - CARDIAC Hx Cardiac Disorders: Yes Hx Congestive Heart Failure: Yes Hx Hypercholesterolemia: Yes Hx Hypertension: Yes Other/Comment: mild mi 2011 - PULMONARY Hx Respiratory Disorders: Yes Hx Chronic Obstructive Pulmonary Disease (COPD): Yes Other/Comment: ex smoke 3months ago - NEUROLOGICAL Hx Neurological Disorder: No - HEENT Hx HEENT Problems: Yes Hx Deafness: Yes ([place]) Other/Comment: glasses - RENAL Hx Chronic Kidney Disease: No - ENDOCRINE/METABOLIC Hx Endocrine Disorders: No - HEMATOLOGICAL/ONCOLOGICAL Hx Blood Disorders: No - INTEGUMENTARY Hx Dermatological Problems: No - MUSCULOSKELETAL/RHEUMATOLOGICAL Hx Musculoskeletal Disorders: Yes Hx Falls: Yes - GASTROINTESTINAL Hx Gastrointestinal Disorders: No - GENITOURINARY/GYNECOLOGICAL Hx Genitourinary Disorders: Yes Hx Prostate Problems: Yes - PSYCHIATRIC Hx Psychophysiologic Disorder: No - SURGICAL HISTORY Hx Surgeries: Yes Other/Comment: Stents in legs - ANESTHESIA Hx Anesthesia Reactions: No Hx Malignant Hyperthermia: No Meds Allergies/Adverse Reactions: Allergies Allergy/AdvReac Type Severity Reaction Status Date / Time No Known Allergies Allergy Verified 06/13/17 17:29 - Medications Medications: Current Medications Albuterol/Ipratropium (Duoneb 3 Mg/0.5 Mg (3 Ml) Ud) 3 ml IH [id number] [facility] Last Admin: 06/14/17 13:21 Dose: 3 ml Albuterol/Ipratropium (Duoneb 3 Mg/0.5 Mg (3 Ml) Ud) 3 ml IH Q2H PRN PRN Reason: Shortness of Breath Aspirin (Ecotrin) 81 mg PO DAILY [facility] Last Admin: 06/14/17 11:36 Dose: 81 mg Atorvastatin Calcium (Lipitor) 10 mg PO DAILY [facility] Last Admin: 06/14/17 09:27 Dose: 10 mg Clopidogrel Bisulfate (Plavix) 75 mg PO DAILY [facility] Last Admin: 06/14/17 11:36 Dose: 75 mg Furosemide (Lasix) 40 mg IVP DAILY [facility] Last Admin: 06/14/17 11:43 Dose: Not Given Hydralazine HCl (Apresoline) 10 mg IVP Q6 PRN PRN Reason: high blood pressure Heparin Sodium/Dextrose (Heparin 25,000 Units/250ml In D5w) 25,000 units in 250 mls @ 7.914 mls/hr IV .Q24H REEMA; 12 UNITS/KG/HR PRN Reason: Protocol Last Admin: 06/14/17 06:54 Dose: 12 units/kg/hr, 7.914 mls/hr Dextrose (Dextrose 5% In Water 1000 Ml) 1,000 mls @ 150 mls/hr IV .Q6H40M [facility] Last Admin: 06/14/17 08:33 Dose: 150 mls/hr Isosorbide Mononitrate (Imdur) 60 mg PO DAILY [facility] Last Admin: 06/14/17 13:24 Dose: Not Given Methylprednisolone (Solu-Medrol) 40 mg IVP Q8 [facility] Last Admin: 06/14/17 13:25 Dose: 40 mg Metoprolol Tartrate (Lopressor) 5 mg IV Q8H [facility] Last Admin: 06/14/17 09:03 Dose: 5 mg Mupirocin (Bactroban Ointment) 0 gm TOP BID [facility] Last Admin: 06/14/17 10:00 Dose: 1 applic Pantoprazole Sodium (Protonix Susp) 40 mg GT 0600 [facility] Last Admin: 06/14/17 05:27 Dose: 40 mg Results - Vital Signs Recent Vital Signs: Last Vital Signs Temp 98 F 06/14/17 00:00 Pulse 64 06/14/17 11:40 Resp 18 06/14/17 10:34 BP 161/70 H 06/14/17 11:30 Pulse Ox 97 06/14/17 11:40 - Labs Result Diagrams: 06/14/17 06:05 06/14/17 06:05 Labs: Laboratory Results - last 24 hr 06/13/17 06/13/17 06/13/17 22:07 22:07 22:07 WBC RBC Hgb Hct MCV MCH MCHC RDW Plt Count MPV Gran % Lymph % (Auto) Nye % (Auto) Eos % (Auto) Baso % (Auto) Gran # Lymph # Nye # Eos # Baso # APTT pCO2 pO2 49 HCO3 ABG pH ABG Total CO2 ABG O2 Saturation ABG O2 Content ABG Base Excess ABG Hemoglobin ABG Carboxyhemoglobin POC ABG HHb (Measured) ABG Methemoglobin ABG O2 Capacity VBG pH 7.39 VBG pCO2 50.0 VBG HCO3 30.3 H VBG Total CO2 31.8 H VBG O2 Sat (Calc) 88.8 H VBG Base Excess 4.2 H VBG Potassium 5.1 Hgb O2 Saturation Sodium 151.0 H Chloride 111.0 H Glucose 177 H Lactate 2.9 H FiO2 21.0 Potassium Carbon Dioxide Anion Gap BUN Creatinine Est GFR ( Amer) Est GFR (Non-Af Amer) Random Glucose Calcium Phosphorus Magnesium Total Bilirubin AST ALT Alkaline Phosphatase Ammonia Total Creatine Kinase Troponin I Total Protein Albumin Globulin Albumin/Globulin Ratio Triglycerides Cholesterol LDL Cholesterol Direct HDL Cholesterol TSH 3rd Generation Venous Blood Potassium 5.1 Urine Osmolality Ur Random Sodium Ur Random Potassium Salicylates < 1 L Urine Opiates Screen Urine Methadone Screen Ur Barbiturates Screen Ur Phencyclidine Scrn Ur Amphetamines Screen U Benzodiazepines Scrn U Oth Cocaine Metabols U Cannabinoids Screen Alcohol, Quantitative < 10 06/13/17 06/13/17 06/13/17 22:30 22:59 22:59 WBC RBC Hgb Hct MCV MCH MCHC RDW Plt Count MPV Gran % Lymph % (Auto) Nye % (Auto) Eos % (Auto) Baso % (Auto) Gran # Lymph # Nye # Eos # Baso # APTT pCO2 pO2 HCO3 ABG pH ABG Total CO2 ABG O2 Saturation ABG O2 Content ABG Base Excess ABG Hemoglobin ABG Carboxyhemoglobin POC ABG HHb (Measured) ABG Methemoglobin ABG O2 Capacity VBG pH VBG pCO2 VBG HCO3 VBG Total CO2 VBG O2 Sat (Calc) VBG Base Excess VBG Potassium Hgb O2 Saturation Sodium Chloride Glucose Lactate FiO2 Potassium Carbon Dioxide Anion Gap BUN Creatinine Est GFR ( Amer) Est GFR (Non-Af Amer) Random Glucose Calcium Phosphorus Magnesium Total Bilirubin AST ALT Alkaline Phosphatase Ammonia Total Creatine Kinase Troponin I Total Protein Albumin Globulin Albumin/Globulin Ratio Triglycerides Cholesterol LDL Cholesterol Direct HDL Cholesterol TSH 3rd Generation 3.08 Venous Blood Potassium Urine Osmolality 326 Ur Random Sodium 111 Ur Random Potassium 37.9 Salicylates Urine Opiates Screen Negative Urine Methadone Screen Negative Ur Barbiturates Screen Negative Ur Phencyclidine Scrn Negative Ur Amphetamines Screen Negative U Benzodiazepines Scrn Positive H U Oth Cocaine Metabols Negative U Cannabinoids Screen Negative Alcohol, Quantitative 06/13/17 06/13/17 06/14/17 23:40 23:45 02:08 WBC RBC Hgb Hct MCV MCH MCHC RDW Plt Count MPV Gran % Lymph % (Auto) Nye % (Auto) Eos % (Auto) Baso % (Auto) Gran # Lymph # Nye # Eos # Baso # APTT pCO2 43 pO2 230.0 H 91 H HCO3 29.9 H ABG pH 7.45 ABG Total CO2 31.2 H ABG O2 Saturation 100.1 H ABG O2 Content 19.3 ABG Base Excess 5.2 H ABG Hemoglobin 13.8 ABG Carboxyhemoglobin 2.1 H POC ABG HHb (Measured) -0.1 L ABG Methemoglobin 1.0 ABG O2 Capacity 19.3 VBG pH 7.50 H VBG pCO2 40.0 VBG HCO3 31.2 H VBG Total CO2 32.4 H VBG O2 Sat (Calc) 98.9 H VBG Base Excess 7.4 H VBG Potassium 3.9 Hgb O2 Saturation 97.0 Sodium 153.0 H Chloride 114.0 H Glucose 137 H Lactate 2.4 H FiO2 50.0 21.0 Potassium Carbon Dioxide Anion Gap BUN Creatinine Est GFR ( Amer) Est GFR (Non-Af Amer) Random Glucose Calcium Phosphorus Magnesium Total Bilirubin AST ALT Alkaline Phosphatase Ammonia 11 Total Creatine Kinase Troponin I Total Protein Albumin Globulin Albumin/Globulin Ratio Triglycerides Cholesterol LDL Cholesterol Direct HDL Cholesterol TSH 3rd Generation Venous Blood Potassium 3.9 Urine Osmolality Ur Random Sodium Ur Random Potassium Salicylates Urine Opiates Screen Urine Methadone Screen Ur Barbiturates Screen Ur Phencyclidine Scrn Ur Amphetamines Screen U Benzodiazepines Scrn U Oth Cocaine Metabols U Cannabinoids Screen Alcohol, Quantitative 06/14/17 06/14/17 06/14/17 02:08 05:30 06:01 WBC RBC Hgb Hct MCV MCH MCHC RDW Plt Count MPV Gran % Lymph % (Auto) Nye % (Auto) Eos % (Auto) Baso % (Auto) Gran # Lymph # Nye # Eos # Baso # APTT pCO2 37 pO2 99.0 101 H HCO3 30.9 H ABG pH 7.53 H ABG Total CO2 32.0 H ABG O2 Saturation 99.1 H ABG O2 Content 17.8 ABG Base Excess 7.8 H ABG Hemoglobin 13.1 ABG Carboxyhemoglobin 2.0 H POC ABG HHb (Measured) 0.9 ABG Methemoglobin 1.0 ABG O2 Capacity 18.0 VBG pH 7.52 H VBG pCO2 40.0 VBG HCO3 32.7 H VBG Total CO2 33.9 H VBG O2 Sat (Calc) 99.2 H VBG Base Excess 9.0 H VBG Potassium 4.0 Hgb O2 Saturation 96.2 Sodium 153.0 H Chloride 115.0 H Glucose 145 H Lactate 1.7 FiO2 30.0 21.0 Potassium Carbon Dioxide Anion Gap BUN Creatinine Est GFR ( Amer) Est GFR (Non-Af Amer) Random Glucose Calcium Phosphorus Magnesium Total Bilirubin AST ALT Alkaline Phosphatase Ammonia Total Creatine Kinase 82 Troponin I 0.98 H* D Total Protein Albumin Globulin Albumin/Globulin Ratio Triglycerides Cholesterol LDL Cholesterol Direct HDL Cholesterol TSH 3rd Generation Venous Blood Potassium 4.0 Urine Osmolality Ur Random Sodium Ur Random Potassium Salicylates Urine Opiates Screen Urine Methadone Screen Ur Barbiturates Screen Ur Phencyclidine Scrn Ur Amphetamines Screen U Benzodiazepines Scrn U Oth Cocaine Metabols U Cannabinoids Screen Alcohol, Quantitative 06/14/17 06/14/17 06/14/17 06:05 06:05 08:15 WBC 7.3 RBC 4.74 Hgb 13.4 L D Hct 43.3 MCV 91.4 D MCH 28.3 MCHC 30.9 L RDW 17.3 H Plt Count 177 MPV 10.2 Gran % 88.7 H Lymph % (Auto) 6.9 L Nye % (Auto) 4.4 Eos % (Auto) 0.0 L Baso % (Auto) 0.0 Gran # 6.44 Lymph # 0.5 L Nye # 0.3 Eos # 0.0 Baso # 0.00 APTT pCO2 pO2 HCO3 ABG pH ABG Total CO2 ABG O2 Saturation ABG O2 Content ABG Base Excess ABG Hemoglobin ABG Carboxyhemoglobin POC ABG HHb (Measured) ABG Methemoglobin ABG O2 Capacity VBG pH VBG pCO2 VBG HCO3 VBG Total CO2 VBG O2 Sat (Calc) VBG Base Excess VBG Potassium Hgb O2 Saturation Sodium 155 H Chloride 115 H Glucose Lactate FiO2 Potassium 4.0 Carbon Dioxide 31 Anion Gap 13 BUN 30 H Creatinine 1.6 H Est GFR ( Amer) 50 Est GFR (Non-Af Amer) 41 Random Glucose 138 H Calcium 8.4 Phosphorus 2.5 Magnesium 1.9 Total Bilirubin 1.4 H AST 47 ALT 32 Alkaline Phosphatase 210 H Ammonia Total Creatine Kinase 99 Troponin I 1.16 H* Total Protein 6.0 Albumin 2.7 L Globulin 3.3 Albumin/Globulin Ratio 0.8 L Triglycerides 62 Cholesterol 118 L LDL Cholesterol Direct 81 HDL Cholesterol 25 L TSH 3rd Generation Venous Blood Potassium Urine Osmolality Ur Random Sodium Ur Random Potassium Salicylates Urine Opiates Screen Urine Methadone Screen Ur Barbiturates Screen Ur Phencyclidine Scrn Ur Amphetamines Screen U Benzodiazepines Scrn U Oth Cocaine Metabols U Cannabinoids Screen Alcohol, Quantitative 06/14/17 08:15 WBC RBC Hgb Hct MCV MCH MCHC RDW Plt Count MPV Gran % Lymph % (Auto) Nye % (Auto) Eos % (Auto) Baso % (Auto) Gran # Lymph # Nye # Eos # Baso # APTT 30.3 pCO2 pO2 HCO3 ABG pH ABG Total CO2 ABG O2 Saturation ABG O2 Content ABG Base Excess ABG Hemoglobin ABG Carboxyhemoglobin POC ABG HHb (Measured) ABG Methemoglobin ABG O2 Capacity VBG pH VBG pCO2 VBG HCO3 VBG Total CO2 VBG O2 Sat (Calc) VBG Base Excess VBG Potassium Hgb O2 Saturation Sodium Chloride Glucose Lactate FiO2 Potassium Carbon Dioxide Anion Gap BUN Creatinine Est GFR ( Amer) Est GFR (Non-Af Amer) Random Glucose Calcium Phosphorus Magnesium Total Bilirubin AST ALT Alkaline Phosphatase Ammonia Total Creatine Kinase Troponin I Total Protein Albumin Globulin Albumin/Globulin Ratio Triglycerides Cholesterol LDL Cholesterol Direct HDL Cholesterol TSH 3rd Generation Venous Blood Potassium Urine Osmolality Ur Random Sodium Ur Random Potassium Salicylates Urine Opiates Screen Urine Methadone Screen Ur Barbiturates Screen Ur Phencyclidine Scrn Ur Amphetamines Screen U Benzodiazepines Scrn U Oth Cocaine Metabols U Cannabinoids Screen Alcohol, Quantitative
--- NOTE | 2017-06-14 15:06 | CON ---
DATE: 06/14/2017 INDICATIONS: Altered mental status, [id number] myocardial infarction and stroke. HISTORY OF PRESENT ILLNESS: This is an 87-year-old man known to me from a prior [facility] admission who was brought to the emergency room lethargic with altered mental status yesterday. He is found to be hypoxic and was intubated in the emergency room. He was minimally responsive at that time, information was obtained from his records he was unable to give history. Subsequent workup has reveled a stroke by CT scan, elevated troponins, possible pneumonia as well as other abnormalities in the labs and imaging studies. At this time, he is on the ventilator. PAST MEDICAL HISTORY: Includes coronary artery disease, recent NSTEMI with LV dysfunction demonstrated on echocardiogram in August of 2016. He has a history of CHF, COPD, active cigarettes smoking, Paget disease, PAD, and bladder cancer. Echocardiogram also demonstrated severe AI, mild , mild MR and TR and mild to moderate pulmonary hypertension. He has history of hyperlipidemia and chronic bronchitis. There is no history of rheumatic fever, diabetes, or gout. MEDICATIONS: At the time of admission included Lipitor, Lasix, Imdur, metoprolol, Spiriva, losartan, Flomax, and Dulera. His current medications include hydralazine p.r.n., ipratropium, albuterol, heparin, isosorbide, Lasix, Lipitor, metoprolol, Protonix, methylprednisolone, and vancomycin. ALLERGIES: THERE ARE NO KNOWN MEDICATIONS ALLERGIES. SOCIAL HISTORY: From the old chart, he is a current smoker. There is no history of recent alcohol use. FAMILY HISTORY: Non-available. REVIEW OF SYSTEMS: Not obtainable. PHYSICAL EXAMINATION: GENERAL: Reveals an elderly man intubated in the intensive care unit, in no acute distress. He has hypertensive this morning. VITAL SIGNS: He is sinus rhythm at 67 beats per minute, temperature is 98 degrees, blood pressure is 160/94, and respirations are 22 on the vent with 100% FiO2. HEENT: Reveals no neck vein distention, thyromegaly, or carotid bruit. Mucous membranes moist. Conjunctivae pink. NECK: Supple. LUNGS: Feel scattered rhonchi. CARDIOVASCULAR: Examination of the heart revealed normal first and second heart sounds. There is systolic murmur along the left sternal border at the cardiac apex. ABDOMEN: Soft. Bowel sounds are present. No mass, organomegaly, tenderness, rebound or guarding. CVA tenderness appreciated. No palpable abdominal aortic aneurysm appreciated. EXTREMITIES: Exam reveals mild lower extremity edema and cellulitic changes NEUROLOGIC: Neurologically, he is sedated. SKIN: Warm and dry. LABORATORY DATA AND IMAGING: EKG reveals sinus tachy cardia, LVH, ST-T wave changes consistent with the ischemia. Chest x-ray this morning reveals right basilar opacity, small right pleural effusion, resolving left side pulmonary opacity with residual rounded opacity left upper lobe. CT scan of the head reveals a small hyperdense lacunar infract within the left cerebellar lobe, which appears to be subacute. There is small hypodensity identified within the right cerebellar lobe, which is too small to determine acuity. No intracranial hemorrhage, etc. White count normal and platelet count normal. Hemoglobin of 13.4 and hematocrit of 43.3. PT and INR 14.7 and 1.36 and PTT is 27.8. Blood gases are noted. Initial, electrolytes include sodium of 152, potassium of 6.2, BUN of 26, and creatinine of 1.7. This morning, the sodium is 155, potassium is 4.0, BUN is 30, and creatinine 1.6. AST is elevated at 72. CK 47, troponin 0.14 and repeat 0.98. BNP is 27,500 and lipase is 34. Urinalysis is noted. Toxic screen is positive for benzodiazepine. IMPRESSION: Yao Renteria is an 87-year-old man with altered mental status, possible recent stroke with positive troponin suggesting acute myocardial infarction, an abnormal chest x-ray consistent with pneumonia, with an left upper lobe lesion, which needs additional evaluation. He was hypoxic with respiratory insufficiency and intubated with electrolyte abnormalities including hypernatremia and hyperkalemia noted. PLAN: At this point, he is intensive care unit under the care of recruiter manager. I will review his old cardiac records. I will repeat his EKG today. We will follow serial troponins. He will have a neurologic evaluation. He will have a pulmonary evaluation. He is getting IV fluids. Attempts were being made to wean him from the vent. He is hypertensive, he will get antihypertensive therapy as the per the recruiter manager. I will continue metoprolol as IV 5 mg q. 8 hours until he can take p.o. He needs free water to correct his hypernatremia. A renal consultation would be helpful. We will monitor I's and O's and daily labs. I will follow along with you and I will make additional recommendations based on his clinical course. Bolivar Pratt MD [email or web address]
--- NOTE | 2017-06-14 15:43 | CON ---
DATE: 06/14/2017 PULMONARY CONSULTATION REFERRING PHYSICIAN: Dr. Julien. REASON FOR CONSULTATION: Respiratory failure. HISTORY OF PRESENT ILLNESS: History is obtained via extensive discussion with the nursing staff. I have also discussed the case with the medical dir at length. I have also reviewed the chart at length. The patient is an 87-year-old male, with past medical history significant for chronic obstructive pulmonary disease, coronary artery disease, myocardial infarction in the past, cardiomyopathy, chronic obstructive pulmonary disease, who presents to [facility] with increasing lethargy over the past two days. Apparently, the son went to visit the patient at home. When the son found the patient very lethargic, he then called EMS and the patient was transported to [facility] for additional evaluation and treatment. Again, I did discussed the case with the nursing staff and medical dir at length. Apparently, while in the ER, the patient was very difficult to arouse. In addition, there was oxygen desaturation noted. The patient was thus intubated for airway protection and ventilation. There is no history of acute shortness of breath at rest. The patient does have chronic dyspnea on exertion. There is no history of significant cough or sputum production. There is no history of chest pain, coughing up of blood, or chest pain - made worse with deep respirations. There is no history of temperatures, chills or infectious exposure. There is no history of night sweats, weight loss or appetite change prior to the above events. No history of leg or calf pains. No history of syncope or diaphoresis. No history of recent travel or trauma. REVIEW OF SYSTEMS: No history of nausea, vomiting, or diarrhea. No acute urinary symptoms. No new musculoskeletal complaints. Rest of the review of systems is negative. ALLERGIES: NO KNOWN ALLERGIES. SOCIAL HISTORY: Positive for extensive tobacco usage. No alcohol. FAMILY HISTORY: No inheritable diseases. HOME MEDICATIONS: Include; Dulera, Lopressor, Spiriva, Flomax, Imdur, Lasix, Lipitor, and Cozaar. PHYSICAL EXAMINATION: GENERAL: The patient is currently on the ventilator. He is very lethargic. VITAL SIGNS: Temperature is 98.0, pulse is 74, respiratory rate 22/20, blood pressure 160/94. HEENT: Normocephalic and atraumatic. NECK: No JVD. CARDIOVASCULAR: Systolic ejection murmur at the low left sternal border. No S3 gallop. LUNGS: Decreased breath sounds at the bases. Scattered bilateral rhonchi. No wheezing. GASTROINTESTINAL: Abdomen is soft. It is not distended. Bowel sounds are positive. EXTREMITIES: Minimal edema. No cyanosis or clubbing. SKIN: + chronic cellulitic changes on both extremities. NEUROLOGIC: Limited at the present time. PERTINENT LABORATORY DATA: Chest x-ray was done this morning and reviewed. There are hazy bilateral pulmonary infiltrates noted. Arterial blood gas was also done on assist control 20, tidal volume 450, and FiO2 of 30%. Results are; pH 7.53, pCO2 of 37, pO2 of 99. CBC; white count 7.3, hemoglobin 13.4, hematocrit 43.3, and platelets of 177. Complete metabolic profile; sodium 155, chloride 115, BUN 30, creatinine 1.6, glucose 138, bilirubin 1.4, ALT 210, troponin 0.98, and albumin 2.7. Rest of the metabolic profile is within normal limits. CAT scan of the brain was done yesterday. There is a subacute lacunar infarct seen within the left cerebral lobe. IMPRESSION: 1. Respiratory failure. 2. Subacute cerebrovascular accident. 3. Chronic obstructive pulmonary disease. 4. Rule out aspiration pneumonia. 5. Coronary artery disease,positive troponin. 6. Renal insufficiency. 7. Multiple electrolyte abnormalities. PLAN: Again, I did discuss the case with the nursing staff and medical dir at length. Apparently, the patient presents to [facility] with a two-day history of increasing lethargy. As above, the son went to the patient's house last light and found him to be very lethargic. Emergency medical services were then called, and brought the patient to the emergency room. In the emergency room, the patient remained very lethargic with oxygen desaturation. He was thus intubated for airway protection and ventilation. I did review the chest x-ray as above. The x-ray does show some hazy bilateral pulmonary infiltrates. Therefore,the above history and chest x-ray findings may be consistent with aspiration pneumonia. The patient has been pancultured and started on antibiotics therapy. I have also reviewed the arterial blood gas. A respiratory alkalosis is noted. The tidal volume has since been decreased. We will check an arterial blood gas later this morning. On physical exam, there is [id number] bronchospasm noted. I will continue with the current nebulizer treatments and intervenous steroids for now. Cardiology, neurologic, and renal evaluations have been ordered. The patient is critically ill at this point time, with the very guarded prognosis. I will discuss the above with the son this morning. I will also discuss the above with the entire ICU team in next few moments. Thank you very much for this pulmonary consultation. [place] MD MTDD
--- NOTE | 2017-06-14 16:37 | CP.PCM.PN ---
<Hawa Ram - Last Filed: 06/14/17 17:19> Subjective - Date & Time of Evaluation Date of Evaluation: 06/14/17 Time of Evaluation: 09:10 - Subjective Subjective: Hawa Ram DO, PGY-1, Internal Medicine, Hospitalist Service Patient seen and examined at bedside. Patient is currently intubated and off sedation. Vent currently on CPAP. Patient is lethargic, not easily aroused. Moves extremities, grimaces to painful stimuli. Does not open eyes on command. Objective - Vital Signs/Intake and Output Vital Signs (last 24 hours): Temp Pulse Resp BP Pulse Ox 98 F 64 18 161/70 H 97 06/14/17 00:00 06/14/17 11:40 06/14/17 10:34 06/14/17 11:30 06/14/17 11:40 Intake and Output: 06/14/17 06/14/17 06:59 18:59 Intake Total 484 Output Total 800 Balance -316 - Medications Medications: Current Medications Albuterol/Ipratropium (Duoneb 3 Mg/0.5 Mg (3 Ml) Ud) 3 ml IH [id number] [facility] Last Admin: 06/14/17 13:21 Dose: 3 ml Albuterol/Ipratropium (Duoneb 3 Mg/0.5 Mg (3 Ml) Ud) 3 ml IH Q2H PRN PRN Reason: Shortness of Breath Aspirin (Ecotrin) 81 mg PO DAILY [facility] Last Admin: 06/14/17 11:36 Dose: 81 mg Atorvastatin Calcium (Lipitor) 10 mg PO DAILY [facility] Last Admin: 06/14/17 09:27 Dose: 10 mg Clopidogrel Bisulfate (Plavix) 75 mg PO DAILY [facility] Last Admin: 06/14/17 11:36 Dose: 75 mg Fentanyl (Fentanyl) 50 mcg IVP Q2H PRN PRN Reason: Sedation Last Admin: 06/14/17 16:23 Dose: 50 mcg Furosemide (Lasix) 40 mg IVP DAILY [facility] Last Admin: 06/14/17 11:43 Dose: Not Given Hydralazine HCl (Apresoline) 10 mg IVP Q6 PRN PRN Reason: high blood pressure Heparin Sodium/Dextrose (Heparin 25,000 Units/250ml In D5w) 25,000 units in 250 mls @ 7.914 mls/hr IV .Q24H [facility]; 12 UNITS/KG/HR PRN Reason: Protocol Last Admin: 06/14/17 06:54 Dose: 12 units/kg/hr, 7.914 mls/hr Dextrose (Dextrose 5% In Water 1000 Ml) 1,000 mls @ 150 mls/hr IV .Q6H40M [facility] Last Admin: 06/14/17 15:45 Dose: 150 mls/hr Isosorbide Mononitrate (Imdur) 60 mg PO DAILY [facility] Last Admin: 06/14/17 13:24 Dose: Not Given Methylprednisolone (Solu-Medrol) 40 mg IVP Q8 [facility] Last Admin: 06/14/17 13:25 Dose: 40 mg Metoprolol Tartrate (Lopressor) 5 mg IV Q8H [facility] Last Admin: 06/14/17 09:03 Dose: 5 mg Mupirocin (Bactroban Ointment) 0 gm TOP BID [facility] Last Admin: 06/14/17 10:00 Dose: 1 applic Pantoprazole Sodium (Protonix Susp) 40 mg GT 0600 [facility] Last Admin: 06/14/17 05:27 Dose: 40 mg - Labs Labs: 06/14/17 06:05 06/14/17 06:05 PT 14.7 Seconds (9.9-11.8) H 06/13/17 17:33 INR 1.36 (0.93-1.08) H 06/13/17 17:33 APTT 30.3 Seconds (23.7-30.8) 06/14/17 08:15 - Constitutional Appears: No Acute Distress - Head Exam Head Exam: ATRAUMATIC, NORMAL INSPECTION - Eye Exam Eye Exam: EOMI, Normal appearance Pupil Exam: Miosis - ENT Exam ENT Exam: Mucous Membranes Moist Additional comments: +ETT - Respiratory Exam Respiratory Exam: Decreased Breath Sounds, NORMAL BREATHING PATTERN. absent: Rales, Rhonchi, Wheezes - Cardiovascular Exam Cardiovascular Exam: REGULAR RHYTHM, +S1, +S2 - GI/Abdominal Exam GI & Abdominal Exam: Soft. absent: Guarding, Rigid, Tenderness - Extremities Exam Additional comments: +Heel protectors +Venous stasis skin changes B/L LE wrapped with curlex - Neurological Exam Neurological Exam: absent: Alert, Awake - Additional Findings Additional findings: Per Podiatry: DERM: Open ulcerations to anterior aspect of bilateral legs measuring 18cm x 7cm x 0.2cm with mix of fibrotic and granular base. Moderate sero-sanguinous drainage is noted. Mal-odor is present. No purulent discharge noted. Erythema noted around the wound marings >2cm VASC: Palpable DP and PT noted 1/4 bilaterally. SETTER MOLDING AND COREMAKING MACHINES less than 3 seconds noted to all digits Assessment and Plan - Assessment and Plan (Free Text) Assessment: 87 year old male with past medical history of COPD, CHF last known EF of 30-35% in 08/2016, Paget's disease, HTN who presented with AMS and hypercapnic respiratory failure secondary to CHF exacerbation vs. COPD exacerbation vs. electrolyte abnormality vs. CVA. Patient has been intubated due to inability to protect airway and placed in ICU for further monitoring and evaluation. Patient to be evaluated by neurology, cardiology and nephrology for further workup of AMS. Patient is currently stable. . Plan: 1) Acute Hypercapnic Respiratory Failure -Intubated, off sedation -F/U weaning trial -Serial CXRs and ABGs -Solumedrol 40mg IV Q8H -Nebulizer tx Q6H -Nebulizer tx Q2H prn -Neurology on consult, f/u recommendations 2) Altered Mental Status, r/o infectious, neurological etiology -Intubated and off sedation -Head CT: small hypodense lacunar infarct within the left cerebellar lobe considered to be subacute -Pinpoint pupils on exam, with no change in AMS with admin of narcan -Received Vanco and Cefepine in the ED -UDS + benzo -F/U MRI and MRA -F/U EEG -F/U procalcitonin -F/U blood cx, urine cx, wound cx -ID consulted, f/u recommendations -Neurology consult, appreciate recs -Continue ASA, plavix, Lipitor 3) NSTEMI -Troponins trending up (0.14-> 0.98-> 1.16) -Continue to trend trops -EKG showing ST elevation in lead 3 -Heparin drip ordered -Continue ASA, plavix, imdur -Cardiology on consult, f/u recommendations 4) Congestive Heart Failure (Systolic) -Last known EF in 08/2016 was 30-35% -BNP 27,500 -Continue home PO meds -Strict I&O's -Daily weights -Cardiology consult, appreciate recs 5) Acute Kidney Injury -BUN/Cr: 30/1.6 -F/U urine lytes -D5 @ 150 cc/hr -Nephrology on consult, f/u recommendations 6) Hypertension -Lopressor 5mg Q8H -Hydralazine 10mg Q6H 7) Hyperkalemia -Potassium 6.2 on admission -S/P Kayexylate -Continue to monitor 8) GI/DVT ppx -Protonix -Heparin drip <Stephanie Julien - Last Filed: 06/17/17 10:15> Objective - Vital Signs/Intake and Output Vital Signs (last 24 hours): Temp Pulse Resp BP Pulse Ox 97.5 F L 70 12 138/90 100 06/16/17 16:00 06/17/17 09:46 06/17/17 05:10 06/17/17 09:46 06/17/17 05:10 Intake and Output: 06/17/17 06/17/17 06:59 18:59 Intake Total 250 Balance 250 - Medications Medications: Current Medications Acetaminophen (Tylenol 325mg Tab) 650 mg PO Q6H PRN PRN Reason: Pain, moderate (4-7) Last Admin: 06/15/17 20:01 Dose: 650 mg Albuterol/Ipratropium (Duoneb 3 Mg/0.5 Mg (3 Ml) Ud) 3 ml IH [id number] Last Admin: 06/17/17 07:57 Dose: 3 ml Albuterol/Ipratropium (Duoneb 3 Mg/0.5 Mg (3 Ml) Ud) 3 ml IH Q2H PRN PRN Reason: Shortness of Breath Aspirin (Ecotrin) 81 mg PO DAILY [facility] Last Admin: 06/17/17 09:46 Dose: 81 mg Atorvastatin Calcium (Lipitor) 10 mg PO DAILY [facility] Last Admin: 06/17/17 09:46 Dose: 10 mg Clopidogrel Bisulfate (Plavix) 75 mg PO DAILY [facility] Last Admin: 06/17/17 09:46 Dose: 75 mg Hydralazine HCl (Apresoline) 10 mg IVP Q6 PRN PRN Reason: high blood pressure Ceftriaxone Sodium (Rocephin 1 Gram Ivpb) 1 gm in 100 mls @ 100 mls/hr IVPB DAILY [facility] PRN Reason: Protocol Last Admin: 06/17/17 09:47 Dose: 100 mls/hr Vancomycin HCl (Vancomycin 1gm) 1 gm in 250 mls @ 167 mls/hr IVPB DAILY [facility] PRN Reason: Protocol Last Admin: 06/17/17 09:47 Dose: 167 mls/hr Dextrose (Dextrose 5% In Water 1000 Ml) 1,000 mls @ 75 mls/hr IV .[id number] [facility] Last Admin: 06/17/17 09:52 Dose: 75 mls/hr Heparin Sodium/Dextrose (Heparin 25,000 Units/250ml In D5w) 25,000 units in 250 mls @ 12.084 mls/hr IV .[id number] PRN; Protocol; 18 UNITS/KG/HR PRN Reason: ADJUST RATE PER PROTOCOL Last Admin: 06/17/17 04:39 Dose: 15 units/kg/hr, 10.07 mls/hr Isosorbide Mononitrate (Imdur) 60 mg PO DAILY [facility] Last Admin: 06/17/17 09:46 Dose: 60 mg Methylprednisolone (Solu-Medrol) 40 mg IVP Q12 [facility] Last Admin: 06/17/17 09:46 Dose: 40 mg Metoprolol Tartrate (Lopressor) 25 mg PO BID [facility] Last Admin: 06/17/17 09:46 Dose: 25 mg Mupirocin (Bactroban Ointment) 0 gm TOP BID [facility] Last Admin: 06/17/17 09:53 Dose: 1 applic Pantoprazole Sodium (Protonix Susp) 40 mg GT 0600 [facility] Last Admin: 06/17/17 06:19 Dose: 40 mg - Labs Labs: 06/17/17 05:15 06/17/17 05:15 PT 14.7 Seconds (9.9-11.8) H 06/13/17 17:33 INR 1.36 (0.93-1.08) H 06/13/17 17:33 APTT 76.0 Seconds (23.7-30.8) H* 06/17/17 05:15 Attending/Attestation - Attestation I have personally seen and examined this patient.: Yes I have fully participated in the care of the patient.: Yes I have reviewed all pertinent clinical information, including history, physical exam and plan: Yes Notes (Text): I have seen and examined the patient at bedside. Agree with the above note with the following additions/ exceptions: Briefly this is 87 year old male with history of COPD, CHF last known EF of 30-35% in 08/2016, Paget's disease, HTN who presented with AMS and found to have hypercapnic respiratory failure secondary to COPD exacerbation vs. electrolyte abnormality vs. CVA. Patient has been intubated due to inability to protect airway and placed in ICU for further monitoring and evaluation. Patient to be evaluated by neurology, cardiology and nephrology for further workup of AMS. UDS positive for opiates. Head CT revealed small hypodense lacunar infarct within the left cerebellar lobe considered to be subacute. MRI pending. For NSTEMI, he is on aspirin, plavix, imdur and heparin drip. Will hold lasix as he appears dehydrated. Upon discharge patient will follow up with Dr Ferrari. Dr Stephanie Julien
[2017-06-14 17:17] LABS: CALCIUM 7.6 mg/dL (8.4-10.5); POTASSIUM 3.4 mmol/L (3.6-5.0)
[2017-06-14] MEDS ORDERED: Propofol 10 mg/ml 1,000 MG/100 ML VIAL ONE (19:34)
--- NOTE | 2017-06-14 19:40 | CARD ---
APPROVED REPORT EXAM: Two-dimensional and M-mode echocardiogram with Doppler and color Doppler. INDICATION DC 2D DIMENSIONS Left Atrium (2D)4.3 (1.6-4.0cm)IVSd1.5 (0.7-1.1cm) LVDd6.0 (3.9-5.9cm)LVOT Diameter2.0 (1.8-2.4cm) PWd1.1 (0.7-1.1cm)LVDs5.5 (2.5-4.0cm) FS (%) 8.0 %LVEF (%)17.3 (>50%) M-Mode DIMENSIONS Aortic Root4.20 (2.2-3.7cm)Aortic Cusp Exc.0.50 (1.5-2.0cm) Aortic Valve AoV Peak Epsgqtxa583.0cm/sAoV VTI50.6cmAO Peak GR.25mmHg LVOT Peak Bjnwhrga09.4cm/sLVOT VTI18.50cmAO Mean GR.12mmHg CAPO (VMAX)1.06ba3VSV (VTI)1.15cm2 Mitral Valve MV E Bqcklaly58.5cm/sMV A Wcsvlgsc76.1cm/sMV HTG78kd E/A ratio1.1MVA (PHT)2.59cm2 TDI Lateral E' Peak V4.58cm/sMedial E' Peak V3.80cm/sE/Lateral E'16.5 E/Medial E'19.9 Tricuspid Valve TR Peak Oicdzymc085fi/sRAP [id number] Peak Gr.39mmHg [id number] LEFT VENTRICLE The Left Ventricle is mildly dilated. There is moderate concentric left ventricular hypertrophy. The systolic function is severely impaired. There is global hypokinesis of the left ventricle. Transmitral Doppler flow pattern is Grade I-abnormal relaxation pattern. No left ventricle thrombus noted on this study. RIGHT VENTRICLE The right ventricle is normal size. There is normal right ventricular wall thickness. Systolic function is mildly reduced. ATRIA The left atrium is mildly dilated. The right atrium is mildly dilated. AORTIC VALVE The aortic valve is severely calcified. There is moderate to severe aortic regurgitation. There is mild valvular aortic stenosis. MITRAL VALVE Mitral regurgitation is moderate to severe. TRICUSPID VALVE There is mild to moderate pulmonary hypertension. GREAT VESSELS The aortic root is moderately enlarged. PERICARDIAL EFFUSION There is no pericardial effusion. <Conclusion> The Left Ventricle is mildly dilated. There is moderate concentric left ventricular hypertrophy. The systolic function is severely impaired. There is global hypokinesis of the left ventricle. Transmitral Doppler flow pattern is Grade I-abnormal relaxation pattern. No left ventricle thrombus noted on this study. The aortic valve is severely calcified.There is moderate to severe aortic regurgitation. There is mild valvular aortic stenosis. The aortic root is moderately enlarged. Mitral regurgitation is moderate to severe. There is mild to moderate pulmonary hypertension.
--- NOTE | 2017-06-14 19:57 | CARD ---
APPROVED REPORT EKG Measurement Heart [id number] [place] [id number] <Conclusion> Normal sinus rhythm Possible Left atrial enlargement Left ventricular hypertrophy with repolarization abnormality Inferior infarct, age undetermined Prolonged QT Abnormal ECG
--- NOTE | 2017-06-14 19:58 | CARD ---
APPROVED REPORT EKG Measurement Heart [id number] [place] [id number] <Conclusion> Sinus rhythm with premature atrial complexes Possible Left atrial enlargement Left ventricular hypertrophy with repolarization abnormality Inferior infarct, age undetermined Prolonged QT Abnormal ECG
[2017-06-14] MEDS: Propofol 10 mg/ml 1,000 MG/100 ML VIAL IV PRN (21:00)
--- NOTE | 2017-06-14 22:35 | CP.PCM.CON ---
History of Present Illness - History of Present Illness History of Present Illness: Infectious Disease Consultation: June 14, 2017 87 yo male brought in for lethargy and AMS. The patient has an extensive medical history that includes COPD, CHF last known EF of 30-35% in 08/2016, HTN , Paget's disease and PAD. The patient required intubation and ventilation once arriving in [facility] [place]. Unable to obtain more history at this time. At best grimaces to painful stimulation. PMHx: COPD, CHF last known EF of 30-35% in 08/2016, HTN, Paget's disease, chronic bronchitis, bladder tumor, urinary retention, and PAD PSHx: not known to me at this time Allergies: NKDA Social Hx: former tobacco user, no EtOH, no illicit drugs to my knowledge Active Medications Albuterol/Ipratropium (Duoneb 3 Mg/0.5 Mg (3 Ml) Ud) 3 ml IH [id number] [facility] Last Admin: 06/14/17 20:01 Dose: 3 ml Albuterol/Ipratropium (Duoneb 3 Mg/0.5 Mg (3 Ml) Ud) 3 ml IH Q2H PRN PRN Reason: Shortness of Breath Aspirin (Ecotrin) 81 mg PO DAILY [facility] Last Admin: 06/14/17 11:36 Dose: 81 mg Atorvastatin Calcium (Lipitor) 10 mg PO DAILY [facility] Last Admin: 06/14/17 09:27 Dose: 10 mg Clopidogrel Bisulfate (Plavix) 75 mg PO DAILY [facility] Last Admin: 06/14/17 11:36 Dose: 75 mg Fentanyl (Fentanyl) 50 mcg IVP Q2H PRN PRN Reason: Sedation Last Admin: 06/14/17 16:23 Dose: 50 mcg Hydralazine HCl (Apresoline) 10 mg IVP Q6 PRN PRN Reason: high blood pressure Heparin Sodium/Dextrose (Heparin 25,000 Units/250ml In D5w) 25,000 units in 250 mls @ 7.914 mls/hr IV .Q24H REEMA; 12 UNITS/KG/HR PRN Reason: Protocol Last Titration: 06/14/17 18:27 Dose: 14 units/kg/hr, 9.233 mls/hr Dextrose (Dextrose 5% In Water 1000 Ml) 1,000 mls @ 150 mls/hr IV .Q6H40M [facility] Last Admin: 06/14/17 15:45 Dose: 150 mls/hr Potassium Chloride (Potassium Chloride 20 Meq/100 Ml) 20 meq in 100 mls @ 50 mls/hr IVPB Q2H [facility] Stop: 06/14/17 22:44 Last Admin: 06/14/17 21:04 Dose: 50 mls/hr Propofol (Diprivan) 1,000 mg in 100 mls @ 1.979 mls/hr IV .Q24H PRN; Protocol; 5 MCG/KG/MIN PRN Reason: TITRATE PER MD ORDER Isosorbide Mononitrate (Imdur) 60 mg PO DAILY [facility] Last Admin: 06/14/17 13:24 Dose: Not Given Methylprednisolone (Solu-Medrol) 40 mg IVP Q8 [facility] Last Admin: 06/14/17 21:04 Dose: 40 mg Metoprolol Tartrate (Lopressor) 5 mg IV Q8H [facility] Last Admin: 06/14/17 18:30 Dose: Not Given Mupirocin (Bactroban Ointment) 0 gm TOP BID [facility] Last Admin: 06/14/17 18:26 Dose: 1 applic Pantoprazole Sodium (Protonix Susp) 40 mg GT 0600 [facility] Last Admin: 06/14/17 05:27 Dose: 40 mg Family Hx: unable to obtain at this time ROS: Unable to obtain at this time Past Patient History - Past Social History Smoking Status: Former Smoker Alcohol: None Drugs: Other (no record of ID usage) - CARDIAC Hx Cardiac Disorders: Yes Hx Congestive Heart Failure: Yes Hx Hypercholesterolemia: Yes Hx Hypertension: Yes Other/Comment: mild mi 2011 - PULMONARY Hx Respiratory Disorders: Yes Hx Chronic Obstructive Pulmonary Disease (COPD): Yes Other/Comment: ex smoke 3months ago - NEUROLOGICAL Hx Neurological Disorder: No - HEENT Hx HEENT Problems: Yes Hx Deafness: Yes ([place]) Other/Comment: glasses - RENAL Hx Chronic Kidney Disease: No - ENDOCRINE/METABOLIC Hx Endocrine Disorders: No - HEMATOLOGICAL/ONCOLOGICAL Hx Blood Disorders: No - INTEGUMENTARY Hx Dermatological Problems: No - MUSCULOSKELETAL/RHEUMATOLOGICAL Hx Musculoskeletal Disorders: Yes Hx Falls: Yes - GASTROINTESTINAL Hx Gastrointestinal Disorders: No - GENITOURINARY/GYNECOLOGICAL Hx Genitourinary Disorders: Yes Hx Prostate Problems: Yes - PSYCHIATRIC Hx Psychophysiologic Disorder: No - SURGICAL HISTORY Hx Surgeries: Yes Other/Comment: Stents in legs - ANESTHESIA Hx Anesthesia Reactions: No Hx Malignant Hyperthermia: No Meds Allergies/Adverse Reactions: Allergies Allergy/AdvReac Type Severity Reaction Status Date / Time No Known Allergies Allergy Verified 06/13/17 17:29 - Medications Medications: Current Medications Albuterol/Ipratropium (Duoneb 3 Mg/0.5 Mg (3 Ml) Ud) 3 ml IH [id number] [facility] Last Admin: 06/14/17 20:01 Dose: 3 ml Albuterol/Ipratropium (Duoneb 3 Mg/0.5 Mg (3 Ml) Ud) 3 ml IH Q2H PRN PRN Reason: Shortness of Breath Aspirin (Ecotrin) 81 mg PO DAILY [facility] Last Admin: 06/14/17 11:36 Dose: 81 mg Atorvastatin Calcium (Lipitor) 10 mg PO DAILY [facility] Last Admin: 06/14/17 09:27 Dose: 10 mg Clopidogrel Bisulfate (Plavix) 75 mg PO DAILY [facility] Last Admin: 06/14/17 11:36 Dose: 75 mg Fentanyl (Fentanyl) 50 mcg IVP Q2H PRN PRN Reason: Sedation Last Admin: 06/14/17 16:23 Dose: 50 mcg Hydralazine HCl (Apresoline) 10 mg IVP Q6 PRN PRN Reason: high blood pressure Heparin Sodium/Dextrose (Heparin 25,000 Units/250ml In D5w) 25,000 units in 250 mls @ 7.914 mls/hr IV .Q24H REEMA; 12 UNITS/KG/HR PRN Reason: Protocol Last Titration: 06/14/17 18:27 Dose: 14 units/kg/hr, 9.233 mls/hr Dextrose (Dextrose 5% In Water 1000 Ml) 1,000 mls @ 150 mls/hr IV .Q6H40M [facility] Last Admin: 06/14/17 15:45 Dose: 150 mls/hr Potassium Chloride (Potassium Chloride 20 Meq/100 Ml) 20 meq in 100 mls @ 50 mls/hr IVPB Q2H [facility] Stop: 06/14/17 22:44 Last Admin: 06/14/17 21:04 Dose: 50 mls/hr Propofol (Diprivan) 1,000 mg in 100 mls @ 1.979 mls/hr IV .Q24H PRN; Protocol; 5 MCG/KG/MIN PRN Reason: TITRATE PER MD ORDER Isosorbide Mononitrate (Imdur) 60 mg PO DAILY [facility] Last Admin: 06/14/17 13:24 Dose: Not Given Methylprednisolone (Solu-Medrol) 40 mg IVP Q8 [facility] Last Admin: 06/14/17 21:04 Dose: 40 mg Metoprolol Tartrate (Lopressor) 5 mg IV Q8H [facility] Last Admin: 06/14/17 18:30 Dose: Not Given Mupirocin (Bactroban Ointment) 0 gm TOP BID [facility] Last Admin: 06/14/17 18:26 Dose: 1 applic Pantoprazole Sodium (Protonix Susp) 40 mg GT 0600 [facility] Last Admin: 06/14/17 05:27 Dose: 40 mg Physical Exam - Constitutional Appears: Toxic, No Acute Distress, Chronically Ill - Head Exam Head Exam: ATRAUMATIC, NORMOCEPHALIC - Eye Exam Eye Exam: EOMI Pupil Exam: Miosis - ENT Exam ENT Exam: Mucous Membranes Moist, Normal External Ear Exam, TM's Normal Bilaterally Additional comments: intubated - Neck Exam Neck exam: Positive for: Full Rom, Normal Inspection - Respiratory Exam Respiratory Exam: Decreased Breath Sounds. absent: Rales, Rhonchi, Wheezes - Cardiovascular Exam Cardiovascular Exam: REGULAR RHYTHM, RRR, +S1, +S2 - GI/Abdominal Exam GI & Abdominal Exam: Normal Bowel Sounds, Soft. absent: Distended, Tenderness - Extremities Exam Additional comments: +Heel protectors +Venous stasis skin changes B/L LE wrapped with curlex cellulitis of the bilateral lower extremities and chronic venous stasis. open ulcerations on the bilateral legs anteriorly. wounds are malodorous. - Neurological Exam Additional comments: AAO x 0 off sedation but intubated and ventilated. - Skin Additional comments: as per extremity exam. Results - Vital Signs Recent Vital Signs: Last Vital Signs Temp 98.1 F 06/14/17 16:00 Pulse 54 L 06/14/17 18:30 Resp 18 06/14/17 10:34 BP 140/51 L 06/14/17 18:30 Pulse Ox 97 06/14/17 18:30 - Labs Result Diagrams: 06/14/17 06:05 06/14/17 16:55 Labs: Laboratory Results - last 24 hr 06/13/17 06/13/17 06/13/17 22:07 22:07 22:07 WBC RBC Hgb Hct MCV MCH MCHC RDW Plt Count MPV Gran % Lymph % (Auto) [place] % (Auto) Eos % (Auto) Baso % (Auto) Gran # Lymph # [place] # Eos # Baso # APTT pCO2 pO2 49 HCO3 ABG pH ABG Total CO2 ABG O2 Saturation ABG O2 Content ABG Base Excess ABG Hemoglobin ABG Carboxyhemoglobin POC ABG HHb (Measured) ABG Methemoglobin ABG O2 Capacity VBG pH 7.39 VBG pCO2 50.0 VBG HCO3 30.3 H VBG Total CO2 31.8 H VBG O2 Sat (Calc) 88.8 H VBG Base Excess 4.2 H VBG Potassium 5.1 Hgb O2 Saturation Sodium 151.0 H Chloride 111.0 H Glucose 177 H Lactate 2.9 H FiO2 21.0 Potassium Carbon Dioxide Anion Gap BUN Creatinine Est GFR ( Amer) Est GFR (Non-Af Amer) Random Glucose Calcium Phosphorus Magnesium Total Bilirubin AST ALT Alkaline Phosphatase Ammonia Total Creatine Kinase Troponin I Total Protein Albumin Globulin Albumin/Globulin Ratio Triglycerides Cholesterol LDL Cholesterol Direct HDL Cholesterol Procalcitonin TSH 3rd Generation Venous Blood Potassium 5.1 Urine Osmolality Ur Random Sodium Ur Random Potassium Salicylates < 1 L Urine Opiates Screen Urine Methadone Screen Ur Barbiturates Screen Ur Phencyclidine Scrn Ur Amphetamines Screen U Benzodiazepines Scrn U Oth Cocaine Metabols U Cannabinoids Screen Alcohol, Quantitative < 10 06/13/17 06/13/17 06/13/17 22:30 22:59 22:59 WBC RBC Hgb Hct MCV MCH MCHC RDW Plt Count MPV Gran % Lymph % (Auto) [place] % (Auto) Eos % (Auto) Baso % (Auto) Gran # Lymph # [place] # Eos # Baso # APTT pCO2 pO2 HCO3 ABG pH ABG Total CO2 ABG O2 Saturation ABG O2 Content ABG Base Excess ABG Hemoglobin ABG Carboxyhemoglobin POC ABG HHb (Measured) ABG Methemoglobin ABG O2 Capacity VBG pH VBG pCO2 VBG HCO3 VBG Total CO2 VBG O2 Sat (Calc) VBG Base Excess VBG Potassium Hgb O2 Saturation Sodium Chloride Glucose Lactate FiO2 Potassium Carbon Dioxide Anion Gap BUN Creatinine Est GFR ( Amer) Est GFR (Non-Af Amer) Random Glucose Calcium Phosphorus Magnesium Total Bilirubin AST ALT Alkaline Phosphatase Ammonia Total Creatine Kinase Troponin I Total Protein Albumin Globulin Albumin/Globulin Ratio Triglycerides Cholesterol LDL Cholesterol Direct HDL Cholesterol Procalcitonin TSH 3rd Generation 3.08 Venous Blood Potassium Urine Osmolality 326 Ur Random Sodium 111 Ur Random Potassium 37.9 Salicylates Urine Opiates Screen Negative Urine Methadone Screen Negative Ur Barbiturates Screen Negative Ur Phencyclidine Scrn Negative Ur Amphetamines Screen Negative U Benzodiazepines Scrn Positive H U Oth Cocaine Metabols Negative U Cannabinoids Screen Negative Alcohol, Quantitative 06/13/17 06/13/17 06/14/17 23:40 23:45 02:08 WBC RBC Hgb Hct MCV MCH MCHC RDW Plt Count MPV Gran % Lymph % (Auto) [place] % (Auto) Eos % (Auto) Baso % (Auto) Gran # Lymph # [place] # Eos # Baso # APTT pCO2 43 pO2 230.0 H 91 H HCO3 29.9 H ABG pH 7.45 ABG Total CO2 31.2 H ABG O2 Saturation 100.1 H ABG O2 Content 19.3 ABG Base Excess 5.2 H ABG Hemoglobin 13.8 ABG Carboxyhemoglobin 2.1 H POC ABG HHb (Measured) -0.1 L ABG Methemoglobin 1.0 ABG O2 Capacity 19.3 VBG pH 7.50 H VBG pCO2 40.0 VBG HCO3 31.2 H VBG Total CO2 32.4 H VBG O2 Sat (Calc) 98.9 H VBG Base Excess 7.4 H VBG Potassium 3.9 Hgb O2 Saturation 97.0 Sodium 153.0 H Chloride 114.0 H Glucose 137 H Lactate 2.4 H FiO2 50.0 21.0 Potassium Carbon Dioxide Anion Gap BUN Creatinine Est GFR ( Amer) Est GFR (Non-Af Amer) Random Glucose Calcium Phosphorus Magnesium Total Bilirubin AST ALT Alkaline Phosphatase Ammonia 11 Total Creatine Kinase Troponin I Total Protein Albumin Globulin Albumin/Globulin Ratio Triglycerides Cholesterol LDL Cholesterol Direct HDL Cholesterol Procalcitonin TSH 3rd Generation Venous Blood Potassium 3.9 Urine Osmolality Ur Random Sodium Ur Random Potassium Salicylates Urine Opiates Screen Urine Methadone Screen Ur Barbiturates Screen Ur Phencyclidine Scrn Ur Amphetamines Screen U Benzodiazepines Scrn U Oth Cocaine Metabols U Cannabinoids Screen Alcohol, Quantitative 06/14/17 06/14/17 06/14/17 02:08 05:30 06:01 WBC RBC Hgb Hct MCV MCH MCHC RDW Plt Count MPV Gran % Lymph % (Auto) [place] % (Auto) Eos % (Auto) Baso % (Auto) Gran # Lymph # [place] # Eos # Baso # APTT pCO2 37 pO2 99.0 101 H HCO3 30.9 H ABG pH 7.53 H ABG Total CO2 32.0 H ABG O2 Saturation 99.1 H ABG O2 Content 17.8 ABG Base Excess 7.8 H ABG Hemoglobin 13.1 ABG Carboxyhemoglobin 2.0 H POC ABG HHb (Measured) 0.9 ABG Methemoglobin 1.0 ABG O2 Capacity 18.0 VBG pH 7.52 H VBG pCO2 40.0 VBG HCO3 32.7 H VBG Total CO2 33.9 H VBG O2 Sat (Calc) 99.2 H VBG Base Excess 9.0 H VBG Potassium 4.0 Hgb O2 Saturation 96.2 Sodium 153.0 H Chloride 115.0 H Glucose 145 H Lactate 1.7 FiO2 30.0 21.0 Potassium Carbon Dioxide Anion Gap BUN Creatinine Est GFR ( Amer) Est GFR (Non-Af Amer) Random Glucose Calcium Phosphorus Magnesium Total Bilirubin AST ALT Alkaline Phosphatase Ammonia Total Creatine Kinase 82 Troponin I 0.98 H* D Total Protein Albumin Globulin Albumin/Globulin Ratio Triglycerides Cholesterol LDL Cholesterol Direct HDL Cholesterol Procalcitonin TSH 3rd Generation Venous Blood Potassium 4.0 Urine Osmolality Ur Random Sodium Ur Random Potassium Salicylates Urine Opiates Screen Urine Methadone Screen Ur Barbiturates Screen Ur Phencyclidine Scrn Ur Amphetamines Screen U Benzodiazepines Scrn U Oth Cocaine Metabols U Cannabinoids Screen Alcohol, Quantitative 06/14/17 06/14/17 06/14/17 06:05 06:05 08:15 WBC 7.3 RBC 4.74 Hgb 13.4 L D Hct 43.3 MCV 91.4 D MCH 28.3 MCHC 30.9 L RDW 17.3 H Plt Count 177 MPV 10.2 Gran % 88.7 H Lymph % (Auto) 6.9 L [place] % (Auto) 4.4 Eos % (Auto) 0.0 L Baso % (Auto) 0.0 Gran # 6.44 Lymph # 0.5 L Band[place] # 0.3 Eos # 0.0 Baso # 0.00 APTT pCO2 pO2 HCO3 ABG pH ABG Total CO2 ABG O2 Saturation ABG O2 Content ABG Base Excess ABG Hemoglobin ABG Carboxyhemoglobin POC ABG HHb (Measured) ABG Methemoglobin ABG O2 Capacity VBG pH VBG pCO2 VBG HCO3 VBG Total CO2 VBG O2 Sat (Calc) VBG Base Excess VBG Potassium Hgb O2 Saturation Sodium 155 H Chloride 115 H Glucose Lactate FiO2 Potassium 4.0 Carbon Dioxide 31 Anion Gap 13 BUN 30 H Creatinine 1.6 H Est GFR ( Amer) 50 Est GFR (Non-Af Amer) 41 Random Glucose 138 H Calcium 8.4 Phosphorus 2.5 Magnesium 1.9 Total Bilirubin 1.4 H AST 47 ALT 32 Alkaline Phosphatase 210 H Ammonia Total Creatine Kinase 99 Troponin I 1.16 H* Total Protein 6.0 Albumin 2.7 L Globulin 3.3 Albumin/Globulin Ratio 0.8 L Triglycerides 62 Cholesterol 118 L LDL Cholesterol Direct 81 HDL Cholesterol 25 L Procalcitonin TSH 3rd Generation Venous Blood Potassium Urine Osmolality Ur Random Sodium Ur Random Potassium Salicylates Urine Opiates Screen Urine Methadone Screen Ur Barbiturates Screen Ur Phencyclidine Scrn Ur Amphetamines Screen U Benzodiazepines Scrn U Oth Cocaine Metabols U Cannabinoids Screen Alcohol, Quantitative 06/14/17 06/14/17 06/14/17 08:15 08:15 16:55 WBC RBC Hgb Hct MCV MCH MCHC RDW Plt Count MPV Gran % Lymph % (Auto) [place] % (Auto) Eos % (Auto) Baso % (Auto) Gran # Lymph # [place] # Eos # Baso # APTT 30.3 39.2 H pCO2 pO2 HCO3 ABG pH ABG Total CO2 ABG O2 Saturation ABG O2 Content ABG Base Excess ABG Hemoglobin ABG Carboxyhemoglobin POC ABG HHb (Measured) ABG Methemoglobin ABG O2 Capacity VBG pH VBG pCO2 VBG HCO3 VBG Total CO2 VBG O2 Sat (Calc) VBG Base Excess VBG Potassium Hgb O2 Saturation Sodium Chloride Glucose Lactate FiO2 Potassium Carbon Dioxide Anion Gap BUN Creatinine Est GFR ( Amer) Est GFR (Non-Af Amer) Random Glucose Calcium Phosphorus Magnesium Total Bilirubin AST ALT Alkaline Phosphatase Ammonia Total Creatine Kinase Troponin I Total Protein Albumin Globulin Albumin/Globulin Ratio Triglycerides Cholesterol LDL Cholesterol Direct HDL Cholesterol Procalcitonin 0.48 TSH 3rd Generation Venous Blood Potassium Urine Osmolality Ur Random Sodium Ur Random Potassium Salicylates Urine Opiates Screen Urine Methadone Screen Ur Barbiturates Screen Ur Phencyclidine Scrn Ur Amphetamines Screen U Benzodiazepines Scrn U Oth Cocaine Metabols U Cannabinoids Screen Alcohol, Quantitative 06/14/17 16:55 WBC RBC Hgb Hct MCV MCH MCHC RDW Plt Count MPV Gran % Lymph % (Auto) [place] % (Auto) Eos % (Auto) Baso % (Auto) Gran # Lymph # [place] # Eos # Baso # APTT pCO2 pO2 HCO3 ABG pH ABG Total CO2 ABG O2 Saturation ABG O2 Content ABG Base Excess ABG Hemoglobin ABG Carboxyhemoglobin POC ABG HHb (Measured) ABG Methemoglobin ABG O2 Capacity VBG pH VBG pCO2 VBG HCO3 VBG Total CO2 VBG O2 Sat (Calc) VBG Base Excess VBG Potassium Hgb O2 Saturation Sodium 148 Chloride 109 H Glucose Lactate FiO2 Potassium 3.4 L Carbon Dioxide 31 Anion Gap 11 BUN 33 H Creatinine 1.5 H Est GFR ( Amer) 54 Est GFR (Non-Af Amer) 44 Random Glucose 208 H Calcium 7.6 L Phosphorus Magnesium Total Bilirubin AST ALT Alkaline Phosphatase Ammonia Total Creatine Kinase Troponin I Total Protein Albumin Globulin Albumin/Globulin Ratio Triglycerides Cholesterol LDL Cholesterol Direct HDL Cholesterol Procalcitonin TSH 3rd Generation Venous Blood Potassium Urine Osmolality Ur Random Sodium Ur Random Potassium Salicylates Urine Opiates Screen Urine Methadone Screen Ur Barbiturates Screen Ur Phencyclidine Scrn Ur Amphetamines Screen U Benzodiazepines Scrn U Oth Cocaine Metabols U Cannabinoids Screen Alcohol, Quantitative Assessment & Plan - Assessment and Plan (Free Text) Assessment: 87 yo male with AMS and lethargy. Etiology unclear. Broad spectrum coverage for now with Rocephin and Vancomycin treatment. Ignacio cultures. Imaging studies. Patient remains intubated and ventilated. He is now waking up despite being off sedation. Supportive care. Obtain procalcitonin. Follow up WBC and fever trend. Urine drug screen positive for Benzodiazepine. Respiratory failure. Renal insufficiency (acute or chronic?). Patient has a history of hypertension and systolic congestive heart failure. Thank you for allowing me to participate in the care of the patient, we will follow with you.
[2017-06-15] MEDS: Metoprolol 1 mg/ml Inj IV SCH ×4 (00:50→18:27)
[2017-06-15] MEDS: Albuterol-Ipratrop 3 mg / 0.5 (3 ml) UD IH SCH ×4 (02:47→19:45)
[2017-06-15] MEDS: Propofol 10 mg/ml 1,000 MG/100 ML VIAL IV PRN (05:20)
[2017-06-15] MEDS: MethylPREDNISolone 40 mg Vial IVP SCH ×3 (05:24→21:49)
[2017-06-15] MEDS: Pantoprazole 40 mg Susp UD GT SCH (05:24)
[2017-06-15 05:38] LABS: ARTERIAL BLOOD GAS HCO3 31.2 mmol/L (21-28); ARTERIAL BLOOD GAS O2 CONTENT 16.8 ML/dl (15-23); ARTERIAL BLOOD GAS PH 7.43 (7.35-7.45); ARTERIAL BLOOD HGB O2 SAT 95.7 % (95.0-98.0); CARBOXYHEMOGLOBIN 1.8 % (0.5-1.5); HHB 1.4 % (0-5); METHEMOGLOBIN 1.1 % (0.0-3.0)
[2017-06-15 06:17] LABS: GRAN # 10.36 (1.4-6.5); GRAN % 90.7 % (50.0-68.0); HEMATOCRIT 38.8 % (42.0-52.0); LYMPH # 0.6 (1.2-3.4); LYMPH % 4.8 % (22.0-35.0); MEAN CORPUSCULAR HEMOGLOBIN 28.3 pg (25.0-35.0); MEAN CORPUSCULAR HGB CONC 31.4 g/dl (31.0-37.0); MEAN PLATELET VOLUME 10.2 fl (7.0-11.0); MONO # 0.5 (0.1-0.6); MONO % 4.5 % (1.0-6.0); PLATELET COUNT 169 10^3/uL (120.0-450.0); RED CELL DISTRIBUTION WIDTH 17.6 % (11.5-14.5); WHITE BLOOD COUNT 11.4 10^3/ul (4.5-11.0)
[2017-06-15 06:26] LABS: ALB/GLOB RATIO 0.8 (1.1-1.8); BILIRUBIN,TOTAL 0.7 mg/dL (0.2-1.3); CALCIUM 7.3 mg/dL (8.4-10.5); MAGNESIUM 1.8 mg/dL (1.7-2.2); PHOSPHOROUS 3.9 mg/dL (2.5-4.5); POTASSIUM 3.5 mmol/L (3.6-5.0); TOTAL PROTEIN 5.2 g/dL (5.8-8.3); URIC ACID 8.2 mg/dL (3.5-8.5)
[2017-06-15 06:42] LABS: TROPONIN I 0.43 ng/mL
--- NOTE | 2017-06-15 07:37 | PN ---
DATE: 06/15/2017(610AM--70AM) SUBJECTIVE: The patient remains on the ventilator. He is currently sedated. PHYSICAL EXAMINATION: VITAL SIGNS: Temperature is 97.2, pulse is 55, respiratory rate 20/20, blood pressure 135/58. HEENT: Normocephalic and atraumatic. NECK: No JVD. CARDIOVASCULAR: Systolic ejection murmur at the lower left sternal border. No S3 gallop. LUNGS: Decreased breath sounds at the bases. Much less rhonchi. No wheezing. EXTREMITIES: Minimal edema. No cyanosis or clubbing. GASTROINTESTINAL: Abdomen is soft and nondistended. Bowel sounds are positive. SKIN: Chronic cellulitic changes on both lower extremities. NEUROLOGIC: Limited at the present time. PERTINENT LABORATORY DATA: Chest x-ray was done this morning and reviewed. Compared to yesterday's film, today's film is improved --with a decrease in the left-sided infiltrate. A small chronic left upper lobe opacity remains. Arterial blood gas was done on assist control 20, tidal volume 380, FiO2 of 30%. Results are: pH 7.43, pCO2 of 47, pO2 of 103. Procalcitonin was also done yesterday. It is negative-0.48. IMPRESSION: 1. Respiratory failure. 2. Subacute cerebrovascular accident. 3. Chronic obstructive pulmonary disease. 4. Rule out aspiration pneumonia. 5. Myocardial infarction. 6. Renal insufficiency. 7. Multiple electrolyte abnormalities. PLAN: The patient remains in the ICU. He is currently sedated and on the ventilator. I did discuss the case with the nursing staff at length. The patient did wake up yesterday. I also reviewed the chest x-ray as above. The chest x-ray is improved-- with a decrease in the left-sided infiltrates. Again, there is also a small chronic left apical opacity present--seen on multiple previous films(back to 2012). I have also reviewed the arterial blood gas. The arterial blood gas is much improved-- with normalization of the pH and a decrease in the alveolar-arterial gradient. I would continue the antibiotic coverage-as per infectious disease. Input by Dr. Martin is noted. Renal and cardiology evaluations are also noted. The patient had a peak troponin of 1.16 yesterday. The troponin is trending down this morning. Additional a.m. labs are also pending. Clinical status of the patient is certainly improved-compared to yesterday. However, the patient remains critically ill with an overall very guarded prognosis. I will discuss the above with the entire ICU team in the next few moments. I did discuss the case with Dr. Julien at length yesterday. I will also discuss the case with the son this morning. [place] MD MTDD
--- NOTE | 2017-06-15 07:53 | CP.PCM.PN ---
Subjective - Date & Time of Evaluation Date of Evaluation: 06/15/17 Time of Evaluation: 07:00 - Subjective Subjective: On vent in ICU. Agitated when sedation is lightened. Weaning/extubation planned for today. V/S noted. Lungs: rhonchi Cor.: S1S2, WAGNER Abd.: soft Ext: edema, bandaged Neuro.: sedated I/O recorded as 4040/750 (+ 200 during the night) Labs and ABGs noted: PTT= 85, K+= 3.5, Cr.= 1.4, Trop.= 0.43 BC x2 NG at 24 hrs. Echo noted: Sev. LVD, mod/sev AI, mild , mod/sev. MR, mld/mod PH ECG: S. Ignacio., LVH, STTW changes CXR today: pending. About the same to me. MRI Brain, MRA Head: noted. No Stroke seen. Objective - Vital Signs/Intake and Output Vital Signs (last 24 hours): Temp Pulse Resp BP Pulse Ox 97.2 F L 55 L 18 135/58 L 100 06/15/17 04:00 06/15/17 06:04 06/15/17 07:26 06/15/17 06:04 06/15/17 07:19 Intake and Output: 06/15/17 06/15/17 06:59 18:59 Intake Total 2290 Output Total 200 Balance 2090 - Medications Medications: Current Medications Albuterol/Ipratropium (Duoneb 3 Mg/0.5 Mg (3 Ml) Ud) 3 ml IH [id number] [facility] Last Admin: 06/15/17 07:11 Dose: 3 ml Albuterol/Ipratropium (Duoneb 3 Mg/0.5 Mg (3 Ml) Ud) 3 ml IH Q2H PRN PRN Reason: Shortness of Breath Aspirin (Ecotrin) 81 mg PO DAILY [facility] Last Admin: 06/14/17 11:36 Dose: 81 mg Atorvastatin Calcium (Lipitor) 10 mg PO DAILY [facility] Last Admin: 06/14/17 09:27 Dose: 10 mg Clopidogrel Bisulfate (Plavix) 75 mg PO DAILY [facility] Last Admin: 06/14/17 11:36 Dose: 75 mg Fentanyl (Fentanyl) 50 mcg IVP Q2H PRN PRN Reason: Sedation Last Admin: 06/14/17 16:23 Dose: 50 mcg Hydralazine HCl (Apresoline) 10 mg IVP Q6 PRN PRN Reason: high blood pressure Heparin Sodium/Dextrose (Heparin 25,000 Units/250ml In D5w) 25,000 units in 250 mls @ 7.914 mls/hr IV .Q24H REEMA; 12 UNITS/KG/HR PRN Reason: Protocol Last Titration: 06/15/17 01:30 Dose: 15.92 units/kg/hr, 10.5 mls/hr Dextrose (Dextrose 5% In Water 1000 Ml) 1,000 mls @ 150 mls/hr IV .Q6H40M [facility] Last Admin: 06/15/17 00:48 Dose: 150 mls/hr Propofol (Diprivan) 1,000 mg in 100 mls @ 1.979 mls/hr IV .Q24H PRN; Protocol; 5 MCG/KG/MIN PRN Reason: TITRATE PER MD ORDER Last Admin: 06/15/17 05:20 Dose: 25.27 mcg/kg/min, 10 mls/hr Ceftriaxone Sodium (Rocephin 1 Gram Ivpb) 1 gm in 100 mls @ 100 mls/hr IVPB DAILY [facility] PRN Reason: Protocol Vancomycin HCl (Vancomycin 1gm) 1 gm in 250 mls @ 167 mls/hr IVPB DAILY [facility] PRN Reason: Protocol Isosorbide Mononitrate (Imdur) 60 mg PO DAILY [facility] Last Admin: 06/14/17 13:24 Dose: Not Given Methylprednisolone (Solu-Medrol) 40 mg IVP Q12 [facility] Metoprolol Tartrate (Lopressor) 5 mg IV Q8H [facility] Last Admin: 06/15/17 00:50 Dose: 5 mg Mupirocin (Bactroban Ointment) 0 gm TOP BID [facility] Last Admin: 06/14/17 18:26 Dose: 1 applic Pantoprazole Sodium (Protonix Susp) 40 mg GT 0600 [facility] Last Admin: 06/15/17 05:24 Dose: 40 mg - Labs Labs: 06/15/17 06:00 06/15/17 06:00 PT 14.7 Seconds (9.9-11.8) H 06/13/17 17:33 INR 1.36 (0.93-1.08) H 06/13/17 17:33 APTT 85.1 Seconds (23.7-30.8) H* 06/15/17 06:00 Assessment and Plan - Assessment and Plan (Free Text) Assessment: AMS/Lethargy/Respiatory Insufficiency + trops c/w acute MD Cellulites R/O pneumonia/ ALFREDO density on CXR R/O stroke CAD/NSEMI/LVD Valvlar Heart Disease: Mod/Sev. AI, Mild , Mild to moderate MR and TR, Mild to moderate PH CHF COPD/Bronchitis/Smoker PAD Paget's Disease Bladder cancer Hyperkalemia and Hypernatremia, resolving Plan: As per Intensivists, Pulmonary, ID and Neuro. Wean from vent as able AB Monitor: I/O, labs, PTT's, ABG's, cultures, neuro signs, etc.
[2017-06-15] MEDS: Heparin 25,000units in D5W 25,000 UNITS/250 ML BAG IV SCH (08:32)
[2017-06-15 08:34] LABS: NEUTROPHIL 90 % (50.0-70.0)
[2017-06-15 08:35] LABS: ANISOCYTOSIS 1+; LARGE PLATELETS PRESENT; PLATELET ESTIMATE NORMAL (NORMAL); TOXIC GRANULATION SLIGHT
--- NOTE | 2017-06-15 08:38 | RAD ---
HISTORY: f/u COMPARISON: 06/14/2017 FINDINGS: LUNGS: No active pulmonary disease. PLEURA: No significant pleural effusion identified, no pneumothorax apparent. CARDIOVASCULAR: Moderate cardiomegaly. Decreased vascular congestion OSSEOUS STRUCTURES: No significant abnormalities. VISUALIZED UPPER ABDOMEN: Normal. OTHER FINDINGS: Endotracheal and nasogastric tubes in satisfactory position IMPRESSION: Decreased vascular congestion
[2017-06-15] MEDS: cefTRIAXone 1 gm 1 GM/100 ML BAG IVPB SCH (09:22)
[2017-06-15] MEDS: Vancomycin 1gm in NS 250ml 1 GM/250 ML BAG IVPB SCH (09:23)
--- NOTE | 2017-06-15 12:48 | CP.PCM.PN ---
<Cole Sanots - Last Filed: 06/15/17 12:44> Subjective - Date & Time of Evaluation Date of Evaluation: 06/15/17 Time of Evaluation: 12:44 - Subjective Subjective: Neurology Progress Note for Dr. Castro Pt seen and examined at bedside. Pt extubated yesterday. Pt responding to simple commands. Patient is dysarthric and is not able to coherently answer questions. Objective - Vital Signs/Intake and Output Vital Signs (last 24 hours): Temp Pulse Resp BP Pulse Ox 95.6 F L 62 10 L 150/67 99 06/15/17 08:02 06/15/17 11:40 06/15/17 11:40 06/15/17 11:11 06/15/17 11:40 Intake and Output: 06/15/17 06/15/17 06:59 18:59 Intake Total 2290 80 Output Total 200 Balance 2090 80 - Medications Medications: Current Medications Albuterol/Ipratropium (Duoneb 3 Mg/0.5 Mg (3 Ml) Ud) 3 ml IH [id number] [facility] Last Admin: 06/15/17 07:11 Dose: 3 ml Albuterol/Ipratropium (Duoneb 3 Mg/0.5 Mg (3 Ml) Ud) 3 ml IH Q2H PRN PRN Reason: Shortness of Breath Aspirin (Ecotrin) 81 mg PO DAILY [facility] Last Admin: 06/15/17 09:22 Dose: 81 mg Atorvastatin Calcium (Lipitor) 10 mg PO DAILY [facility] Last Admin: 06/15/17 09:22 Dose: 10 mg Clopidogrel Bisulfate (Plavix) 75 mg PO DAILY [facility] Last Admin: 06/15/17 09:22 Dose: 75 mg Fentanyl (Fentanyl) 50 mcg IVP Q2H PRN PRN Reason: Sedation Last Admin: 06/14/17 16:23 Dose: 50 mcg Hydralazine HCl (Apresoline) 10 mg IVP Q6 PRN PRN Reason: high blood pressure Heparin Sodium/Dextrose (Heparin 25,000 Units/250ml In D5w) 25,000 units in 250 mls @ 7.914 mls/hr IV .Q24H [facility]; 12 UNITS/KG/HR PRN Reason: Protocol Last Admin: 06/15/17 08:32 Dose: 15.92 units/kg/hr, 10.5 mls/hr Propofol (Diprivan) 1,000 mg in 100 mls @ 1.979 mls/hr IV .Q24H PRN; Protocol; 5 MCG/KG/MIN PRN Reason: TITRATE PER MD ORDER Last Titration: 06/15/17 07:45 Dose: 0 mcg/kg/min, 0 mls/hr Ceftriaxone Sodium (Rocephin 1 Gram Ivpb) 1 gm in 100 mls @ 100 mls/hr IVPB DAILY [facility] PRN Reason: Protocol Last Admin: 06/15/17 09:22 Dose: 100 mls/hr Vancomycin HCl (Vancomycin 1gm) 1 gm in 250 mls @ 167 mls/hr IVPB DAILY [facility] PRN Reason: Protocol Last Admin: 06/15/17 09:23 Dose: 167 mls/hr Dextrose (Dextrose 5% In Water 1000 Ml) 1,000 mls @ 75 mls/hr IV .[id number] [facility] Isosorbide Mononitrate (Imdur) 60 mg PO DAILY [facility] Last Admin: 06/15/17 09:22 Dose: 60 mg Methylprednisolone (Solu-Medrol) 40 mg IVP Q12 [facility] Last Admin: 06/15/17 09:23 Dose: 40 mg Metoprolol Tartrate (Lopressor) 5 mg IV Q8H [facility] Last Admin: 06/15/17 09:23 Dose: 5 mg Mupirocin (Bactroban Ointment) 0 gm TOP BID [facility] Last Admin: 06/14/17 18:26 Dose: 1 applic Pantoprazole Sodium (Protonix Susp) 40 mg GT 0600 [facility] Last Admin: 06/15/17 05:24 Dose: 40 mg - Labs Labs: 06/15/17 06:00 06/15/17 06:00 PT 14.7 Seconds (9.9-11.8) H 06/13/17 17:33 INR 1.36 (0.93-1.08) H 06/13/17 17:33 APTT 85.1 Seconds (23.7-30.8) H* 06/15/17 06:00 - Constitutional Appears: Non-toxic, No Acute Distress - Head Exam Head Exam: ATRAUMATIC, NORMAL INSPECTION, NORMOCEPHALIC - ENT Exam ENT Exam: Mucous Membranes Moist - Respiratory Exam Respiratory Exam: Clear to Ausculation Bilateral, NORMAL BREATHING PATTERN - Cardiovascular Exam Cardiovascular Exam: RRR, +S1, +S2 - GI/Abdominal Exam GI & Abdominal Exam: Soft, Normal Bowel Sounds. absent: Tenderness - Extremities Exam Extremities Exam: Normal Inspection - Neurological Exam Neurological Exam: Alert, CN II-XII Intact Additional comments: Pt responding to simple commands Lethargic, dysarthric Plantars downgoing - Skin Skin Exam: Normal Color, Warm Assessment and Plan - Assessment and Plan (Free Text) Plan: 87 y/o M with PMH of COPD, CHF, HTN, Paget's disease and PAD presents with acute hypoxemic respiratory failure and AMS secondary to metabolic encephalopathy in the setting of NSTEMI. Metabolic derangements improving at this time, but may contribute to patients lethargic state. 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 Patient will undergo repeat head CT today. EEG completed at this time, but not read. Patient will continue to be monitored closely. Plan: Repeat Head CT EEG read pending Continue ASA and Plavix Continue Lipitor Monitor electrolytes and correct accordingly Danielle, PGY-2 <Shakeel Castro - Last Filed: 06/19/17 11:05> Objective - Vital Signs/Intake and Output Vital Signs (last 24 hours): Temp Pulse Resp BP Pulse Ox 97.8 F 77 17 159/66 H 99 06/18/17 16:00 06/19/17 10:42 06/19/17 04:10 06/19/17 10:42 06/19/17 04:10 - Medications Medications: Current Medications Acetaminophen (Tylenol 325mg Tab) 650 mg PO Q6H PRN PRN Reason: Pain, moderate (4-7) Last Admin: 06/15/17 20:01 Dose: 650 mg Albuterol/Ipratropium (Duoneb 3 Mg/0.5 Mg (3 Ml) Ud) 3 ml IH [id number] [facility] Last Admin: 06/19/17 07:07 Dose: 3 ml Albuterol/Ipratropium (Duoneb 3 Mg/0.5 Mg (3 Ml) Ud) 3 ml IH Q2H PRN PRN Reason: Shortness of Breath Aspirin (Ecotrin) 81 mg PO DAILY [facility] Last Admin: 06/19/17 10:42 Dose: 81 mg Atorvastatin Calcium (Lipitor) 10 mg PO DAILY [facility] Last Admin: 06/19/17 10:42 Dose: 10 mg Clopidogrel Bisulfate (Plavix) 75 mg PO DAILY [facility] Last Admin: 06/19/17 10:42 Dose: 75 mg Furosemide (Lasix) 20 mg PO DAILY [facility] Last Admin: 06/19/17 10:41 Dose: 20 mg Heparin Sodium (Porcine) (Heparin) 5,000 units SC Q12 [facility] PRN Reason: Protocol Hydralazine HCl (Apresoline) 10 mg IVP Q6 PRN PRN Reason: high blood pressure Ceftriaxone Sodium (Rocephin 1 Gram Ivpb) 1 gm in 100 mls @ 100 mls/hr IVPB DAILY [facility] PRN Reason: Protocol Last Admin: 06/19/17 10:43 Dose: 100 mls/hr Vancomycin HCl (Vancomycin 1gm) 1 gm in 250 mls @ 167 mls/hr IVPB DAILY [facility] PRN Reason: Protocol Last Admin: 06/19/17 10:43 Dose: 167 mls/hr Isosorbide Mononitrate (Imdur) 60 mg PO DAILY [facility] Last Admin: 06/19/17 10:42 Dose: 60 mg Methylprednisolone (Solu-Medrol) 30 mg IVP Q12 [facility] Last Admin: 06/18/17 21:44 Dose: 30 mg Metoprolol Tartrate (Lopressor) 25 mg PO BID [facility] Last Admin: 06/19/17 10:42 Dose: 25 mg Mupirocin (Bactroban Ointment) 0 gm TOP BID [facility] Last Admin: 06/19/17 10:45 Dose: 1 applic Pantoprazole Sodium (Protonix Susp) 40 mg GT 0600 [facility] Last Admin: 06/19/17 05:15 Dose: 40 mg - Labs Labs: 06/19/17 05:10 06/19/17 05:10 PT 14.7 Seconds (9.9-11.8) H 06/13/17 17:33 INR 1.36 (0.93-1.08) H 06/13/17 17:33 APTT 26.6 Seconds (23.7-30.8) 06/19/17 05:10 Attending/Attestation - Attestation I have personally seen and examined this patient.: Yes I have fully participated in the care of the patient.: Yes I have reviewed all pertinent clinical information, including history, physical exam and plan: Yes
--- NOTE | 2017-06-15 13:15 | CP.PCM.PN ---
<Andres Mckeon - Last Filed: 06/15/17 13:12> Subjective - Date & Time of Evaluation Date of Evaluation: 06/15/17 Time of Evaluation: 11:45 - Subjective Subjective: 87 yo male patient with PMHx of Paget's disease was seen at bedside this Am concerning ulcerations to bilateral legs. Dressing to bilateral legs appear cdi. Patient more responsive than yesterday. Objective - Vital Signs/Intake and Output Vital Signs (last 24 hours): Temp Pulse Resp BP Pulse Ox 95.6 F L 62 10 L 150/67 99 06/15/17 08:02 06/15/17 11:40 06/15/17 11:40 06/15/17 11:11 06/15/17 11:40 Intake and Output: 06/15/17 06/15/17 06:59 18:59 Intake Total 2290 80 Output Total 200 Balance 2090 80 - Medications Medications: Current Medications Albuterol/Ipratropium (Duoneb 3 Mg/0.5 Mg (3 Ml) Ud) 3 ml IH [id number] [facility] Last Admin: 06/15/17 13:07 Dose: 3 ml Albuterol/Ipratropium (Duoneb 3 Mg/0.5 Mg (3 Ml) Ud) 3 ml IH Q2H PRN PRN Reason: Shortness of Breath Aspirin (Ecotrin) 81 mg PO DAILY [facility] Last Admin: 06/15/17 09:22 Dose: 81 mg Atorvastatin Calcium (Lipitor) 10 mg PO DAILY [facility] Last Admin: 06/15/17 09:22 Dose: 10 mg Clopidogrel Bisulfate (Plavix) 75 mg PO DAILY [facility] Last Admin: 06/15/17 09:22 Dose: 75 mg Fentanyl (Fentanyl) 50 mcg IVP Q2H PRN PRN Reason: Sedation Last Admin: 06/14/17 16:23 Dose: 50 mcg Hydralazine HCl (Apresoline) 10 mg IVP Q6 PRN PRN Reason: high blood pressure Heparin Sodium/Dextrose (Heparin 25,000 Units/250ml In D5w) 25,000 units in 250 mls @ 7.914 mls/hr IV .Q24H [facility]; 12 UNITS/KG/HR PRN Reason: Protocol Last Admin: 06/15/17 08:32 Dose: 15.92 units/kg/hr, 10.5 mls/hr Propofol (Diprivan) 1,000 mg in 100 mls @ 1.979 mls/hr IV .Q24H PRN; Protocol; 5 MCG/KG/MIN PRN Reason: TITRATE PER MD ORDER Last Titration: 06/15/17 07:45 Dose: 0 mcg/kg/min, 0 mls/hr Ceftriaxone Sodium (Rocephin 1 Gram Ivpb) 1 gm in 100 mls @ 100 mls/hr IVPB DAILY [facility] PRN Reason: Protocol Last Admin: 06/15/17 09:22 Dose: 100 mls/hr Vancomycin HCl (Vancomycin 1gm) 1 gm in 250 mls @ 167 mls/hr IVPB DAILY [facility] PRN Reason: Protocol Last Admin: 06/15/17 09:23 Dose: 167 mls/hr Dextrose (Dextrose 5% In Water 1000 Ml) 1,000 mls @ 75 mls/hr IV .[id number] [facility] Isosorbide Mononitrate (Imdur) 60 mg PO DAILY [facility] Last Admin: 06/15/17 09:22 Dose: 60 mg Methylprednisolone (Solu-Medrol) 40 mg IVP Q12 [facility] Last Admin: 06/15/17 09:23 Dose: 40 mg Metoprolol Tartrate (Lopressor) 5 mg IV Q8H [facility] Last Admin: 06/15/17 09:23 Dose: 5 mg Mupirocin (Bactroban Ointment) 0 gm TOP BID [facility] Last Admin: 06/14/17 18:26 Dose: 1 applic Pantoprazole Sodium (Protonix Susp) 40 mg GT 0600 [facility] Last Admin: 06/15/17 05:24 Dose: 40 mg - Labs Labs: 06/15/17 06:00 06/15/17 06:00 PT 14.7 Seconds (9.9-11.8) H 06/13/17 17:33 INR 1.36 (0.93-1.08) H 06/13/17 17:33 APTT 85.1 Seconds (23.7-30.8) H* 06/15/17 06:00 - Constitutional Appears: Well, Non-toxic, No Acute Distress - Extremities Exam Additional comments: Bilateral lower extremity exam DERM: Open ulcerations to anterior aspect of bilateral legs measuring 18cm x 7cm x 0.2cm with mix of fibrotic and granular base. Moderate sero-sanguinous drainage is noted. Mal-odor is present. No purulent discharge noted. Erythema noted around the wound marings >2cm VASC: Palpable DP and PT noted 1/4 bilaterally. RETINAL ANGIOGRAPHER less than 3 seconds noted to all digits - Neurological Exam Neurological Exam: Alert, Awake, Oriented x3 - Psychiatric Exam Psychiatric exam: Normal Affect, Normal Mood - Skin Skin Exam: Normal Color, Warm Assessment and Plan - Assessment and Plan (Free Text) Assessment: 87 yo male patient presenting with infected ulcerations to anterior aspect of bilateral legs Plan: Patient was seen, evaluated and treated with all questions and concerns addressed labs and vitals reviewed Right leg wound culture pending Bilateral legs dressed with Bactroban, Telfa, DSD Continue IV Abx per ID Podiatry will continue to follow in-house <Noam Cummings - Last Filed: 06/15/17 16:33> Objective - Vital Signs/Intake and Output Vital Signs (last 24 hours): Temp Pulse Resp BP Pulse Ox 95.6 F L 70 18 141/68 97 06/15/17 08:02 06/15/17 15:00 06/15/17 15:00 06/15/17 14:00 06/15/17 15:00 Intake and Output: 06/15/17 06/15/17 06:59 18:59 Intake Total 2290 80 Output Total 200 Balance 2090 80 - Medications Medications: Current Medications Albuterol/Ipratropium (Duoneb 3 Mg/0.5 Mg (3 Ml) Ud) 3 ml IH [id number] [facility] Last Admin: 06/15/17 13:07 Dose: 3 ml Albuterol/Ipratropium (Duoneb 3 Mg/0.5 Mg (3 Ml) Ud) 3 ml IH Q2H PRN PRN Reason: Shortness of Breath Aspirin (Ecotrin) 81 mg PO DAILY [facility] Last Admin: 06/15/17 09:22 Dose: 81 mg Atorvastatin Calcium (Lipitor) 10 mg PO DAILY [facility] Last Admin: 06/15/17 09:22 Dose: 10 mg Clopidogrel Bisulfate (Plavix) 75 mg PO DAILY [facility] Last Admin: 06/15/17 09:22 Dose: 75 mg Fentanyl (Fentanyl) 50 mcg IVP Q2H PRN PRN Reason: Sedation Last Admin: 06/14/17 16:23 Dose: 50 mcg Hydralazine HCl (Apresoline) 10 mg IVP Q6 PRN PRN Reason: high blood pressure Heparin Sodium/Dextrose (Heparin 25,000 Units/250ml In D5w) 25,000 units in 250 mls @ 7.914 mls/hr IV .Q24H [facility]; 12 UNITS/KG/HR PRN Reason: Protocol Last Titration: 06/15/17 15:33 Dose: 18 units/kg/hr, 11.871 mls/hr Propofol (Diprivan) 1,000 mg in 100 mls @ 1.979 mls/hr IV .Q24H PRN; Protocol; 5 MCG/KG/MIN PRN Reason: TITRATE PER MD ORDER Last Titration: 06/15/17 07:45 Dose: 0 mcg/kg/min, 0 mls/hr Ceftriaxone Sodium (Rocephin 1 Gram Ivpb) 1 gm in 100 mls @ 100 mls/hr IVPB DAILY [facility] PRN Reason: Protocol Last Admin: 06/15/17 09:22 Dose: 100 mls/hr Vancomycin HCl (Vancomycin 1gm) 1 gm in 250 mls @ 167 mls/hr IVPB DAILY [facility] PRN Reason: Protocol Last Admin: 06/15/17 09:23 Dose: 167 mls/hr Dextrose (Dextrose 5% In Water 1000 Ml) 1,000 mls @ 75 mls/hr IV .[id number] [facility] Last Admin: 06/15/17 13:38 Dose: 75 mls/hr Isosorbide Mononitrate (Imdur) 60 mg PO DAILY [facility] Last Admin: 06/15/17 09:22 Dose: 60 mg Methylprednisolone (Solu-Medrol) 40 mg IVP Q12 [facility] Last Admin: 06/15/17 09:23 Dose: 40 mg Metoprolol Tartrate (Lopressor) 5 mg IV Q8H [facility] Last Admin: 06/15/17 09:23 Dose: 5 mg Mupirocin (Bactroban Ointment) 0 gm TOP BID [facility] Last Admin: 06/15/17 11:00 Dose: 1 applic Pantoprazole Sodium (Protonix Susp) 40 mg GT 0600 [facility] Last Admin: 06/15/17 05:24 Dose: 40 mg - Labs Labs: 06/15/17 06:00 06/15/17 06:00 PT 14.7 Seconds (9.9-11.8) H 06/13/17 17:33 INR 1.36 (0.93-1.08) H 06/13/17 17:33 APTT 29.6 Seconds (23.7-30.8) 06/15/17 13:55 Attending/Attestation - Attestation I have personally seen and examined this patient.: Yes I have fully participated in the care of the patient.: Yes I have reviewed all pertinent clinical information, including history, physical exam and plan: Yes
--- NOTE | 2017-06-15 13:21 | CP.PCM.PN ---
Subjective - Date & Time of Evaluation Date of Evaluation: 06/15/17 Time of Evaluation: 13:17 - Subjective Subjective: Follow up Nephrology Consultation: Assessment: Critical Acute Hypercapnic respi failure s/p mechanical intubation. now with post- hypercapnic metabolic alkalosis Acute Kidney Injury (N17.9) likely due to dehydration as evident by Hypernatremia. Hyperkalemia: improved Hypertensive Chronic Kidney Disease (I12.9) Chronic Kidney Disease (N18.9) Stage 3 with ? mg proteinuria (R80.9) possibly due to HTN/vasc disease HTN (I12.9), pulmonary fibrosis, chronic systolic CHF, bladder tumor, b/l kidney cysts Altered mental status NSTEMI Plan No acute need for renal replacement therapy at this time. Hypertension control with meds as ordered. Patient not on ACEI/ARB due to JASWINDER Monitor Input/Output, daily weights and renal function with basic metabolic panel Agree with hypotnic fluid as D5w @ 75 ml/hr. may resume lasix later if any evidence of fluid overload Check urine analysis, spot protein/creatinine and albumin/creatinine ratio sent GN work up as C3, C4, ANCA (MPO and NV-3) Dose meds/antibiotics for reduced GFR. Avoid fleets enema/magnesium based laxatives. Avoid nephrotoxins/NSAIDs/ iodinated contrast (unless needed emergently) Glycemic control Further work up/management as per primary team Thanks for allowing me to participate in care of your patient. Will follow patient with you. Please call if any Qs. Dr Edvin Nj Office: [phone] Chief Complaint; Unable Source of Info: EMR. pt unable HPI: Pt is a 87 y/o M with hx of CHF (EF 30-35%), COPD with pulmonary fibrosis, CKD stage 3 (baseline cr 1.1-1.4 mg/dL), HTN, bladder tumor came to ER with altered mental status and shortness of breath and intubated for hypercapnic respi failure, transferred to ICU, renal consult requested for hypernatremia and JASWINDER. got extubated 06/15/17. ROS: Unable to obtain as pt delirious Physical Examination: General Appearance: Comfortable, in no acute respiratory distress. Vitals reviewed and noted as below Head; Atraumatic, normocephalic ENT: oral mucosa dry. Neck; supple no lymphadenopathy, no thyromegaly or bruit Lungs: Normal respiratory rate/effort. Breath sounds bilateral with basal crackles Heart: Normal rate. s1s2 normal. No rub or gallop. SM at left sternal border Extremities: no edema. No varicose veins. has chronic venous stasis changes. both legs dressed, known to have chronic leg wounds Neurological: Patient is delirious Skin: Warm and dry. Normal turgor. No rash. Palpitation: Normal elasticity for age. has upper extremity echymoses + Abdomen: Abdomen is soft. Bowel sounds +. There is no abdominal tenderness, no guarding/rigidity no organomegaly Psych: Unable MSK: no joint tenderness or swelling. Digits and nails normal, no deformity : kidney or bladder not palpable. has catheter Labs/imaging/EKG reviewed. Past medical history, past surgical history, family history, social history, allergy reviewed and noted as below Family hx: Unable to obtain Work up UA done by me showed 30+ protein large blood and LE ++ SG 1.025. microscopy showed very few granular casts, numerous WBCs and also monomorphic RBCs renal sono 2016: b/l renal cysts Objective - Vital Signs/Intake and Output Vital Signs (last 24 hours): Temp Pulse Resp BP Pulse Ox 95.6 F L 62 10 L 150/67 99 06/15/17 08:02 06/15/17 11:40 06/15/17 11:40 06/15/17 11:11 06/15/17 11:40 Intake and Output: 06/15/17 06/15/17 06:59 18:59 Intake Total 2290 80 Output Total 200 Balance 2090 80 - Medications Medications: Current Medications Albuterol/Ipratropium (Duoneb 3 Mg/0.5 Mg (3 Ml) Ud) 3 ml IH [id number] [facility] Last Admin: 06/15/17 13:07 Dose: 3 ml Albuterol/Ipratropium (Duoneb 3 Mg/0.5 Mg (3 Ml) Ud) 3 ml IH Q2H PRN PRN Reason: Shortness of Breath Aspirin (Ecotrin) 81 mg PO DAILY [facility] Last Admin: 06/15/17 09:22 Dose: 81 mg Atorvastatin Calcium (Lipitor) 10 mg PO DAILY [facility] Last Admin: 06/15/17 09:22 Dose: 10 mg Clopidogrel Bisulfate (Plavix) 75 mg PO DAILY [facility] Last Admin: 06/15/17 09:22 Dose: 75 mg Fentanyl (Fentanyl) 50 mcg IVP Q2H PRN PRN Reason: Sedation Last Admin: 06/14/17 16:23 Dose: 50 mcg Hydralazine HCl (Apresoline) 10 mg IVP Q6 PRN PRN Reason: high blood pressure Heparin Sodium/Dextrose (Heparin 25,000 Units/250ml In D5w) 25,000 units in 250 mls @ 7.914 mls/hr IV .Q24H [facility]; 12 UNITS/KG/HR PRN Reason: Protocol Last Admin: 06/15/17 08:32 Dose: 15.92 units/kg/hr, 10.5 mls/hr Propofol (Diprivan) 1,000 mg in 100 mls @ 1.979 mls/hr IV .Q24H PRN; Protocol; 5 MCG/KG/MIN PRN Reason: TITRATE PER MD ORDER Last Titration: 06/15/17 07:45 Dose: 0 mcg/kg/min, 0 mls/hr Ceftriaxone Sodium (Rocephin 1 Gram Ivpb) 1 gm in 100 mls @ 100 mls/hr IVPB DAILY [facility] PRN Reason: Protocol Last Admin: 06/15/17 09:22 Dose: 100 mls/hr Vancomycin HCl (Vancomycin 1gm) 1 gm in 250 mls @ 167 mls/hr IVPB DAILY [facility] PRN Reason: Protocol Last Admin: 06/15/17 09:23 Dose: 167 mls/hr Dextrose (Dextrose 5% In Water 1000 Ml) 1,000 mls @ 75 mls/hr IV .[id number] [facility] Isosorbide Mononitrate (Imdur) 60 mg PO DAILY [facility] Last Admin: 06/15/17 09:22 Dose: 60 mg Methylprednisolone (Solu-Medrol) 40 mg IVP Q12 [facility] Last Admin: 06/15/17 09:23 Dose: 40 mg Metoprolol Tartrate (Lopressor) 5 mg IV Q8H [facility] Last Admin: 06/15/17 09:23 Dose: 5 mg Mupirocin (Bactroban Ointment) 0 gm TOP BID [facility] Last Admin: 06/14/17 18:26 Dose: 1 applic Pantoprazole Sodium (Protonix Susp) 40 mg GT 0600 [facility] Last Admin: 06/15/17 05:24 Dose: 40 mg - Labs Labs: 06/15/17 06:00 06/15/17 06:00 PT 14.7 Seconds (9.9-11.8) H 06/13/17 17:33 INR 1.36 (0.93-1.08) H 06/13/17 17:33 APTT 85.1 Seconds (23.7-30.8) H* 06/15/17 06:00
--- NOTE | 2017-06-15 13:33 | CP.PCM.PN ---
<ZEINAB JONESTYRA - Last Filed: 06/15/17 13:27> Subjective - Date & Time of Evaluation Date of Evaluation: 06/15/17 Time of Evaluation: 07:30 - Subjective Subjective: Gentry Jones DO PGY1 - ICU Progress Note Patient seen and examined at bedside. Nurse reports that overnight, patient was agitated, and was started on diprivan for comfort. This AM, patient was intubated and sedated. After a successful weaning trial, patient was extubated to 3L NC without complications. He continues to maintain saturation well. He is lethargic, but responds to verbal stimuli and obeys simple commands. Orientation was difficult to assess because his mental status was still lethargic. He denies any particular somatic complaints. Objective - Vital Signs/Intake and Output Vital Signs (last 24 hours): Temp Pulse Resp BP Pulse Ox 95.6 F L 62 10 L 150/67 99 06/15/17 08:02 06/15/17 11:40 06/15/17 11:40 06/15/17 11:11 06/15/17 11:40 Intake and Output: 06/15/17 06/15/17 06:59 18:59 Intake Total 2290 80 Output Total 200 Balance 2090 80 - Medications Medications: Current Medications Albuterol/Ipratropium (Duoneb 3 Mg/0.5 Mg (3 Ml) Ud) 3 ml IH [id number] [facility] Last Admin: 06/15/17 13:07 Dose: 3 ml Albuterol/Ipratropium (Duoneb 3 Mg/0.5 Mg (3 Ml) Ud) 3 ml IH Q2H PRN PRN Reason: Shortness of Breath Aspirin (Ecotrin) 81 mg PO DAILY [facility] Last Admin: 06/15/17 09:22 Dose: 81 mg Atorvastatin Calcium (Lipitor) 10 mg PO DAILY [facility] Last Admin: 06/15/17 09:22 Dose: 10 mg Clopidogrel Bisulfate (Plavix) 75 mg PO DAILY [facility] Last Admin: 06/15/17 09:22 Dose: 75 mg Fentanyl (Fentanyl) 50 mcg IVP Q2H PRN PRN Reason: Sedation Last Admin: 06/14/17 16:23 Dose: 50 mcg Hydralazine HCl (Apresoline) 10 mg IVP Q6 PRN PRN Reason: high blood pressure Heparin Sodium/Dextrose (Heparin 25,000 Units/250ml In D5w) 25,000 units in 250 mls @ 7.914 mls/hr IV .Q24H TOMER; 12 UNITS/KG/HR PRN Reason: Protocol Last Admin: 06/15/17 08:32 Dose: 15.92 units/kg/hr, 10.5 mls/hr Propofol (Diprivan) 1,000 mg in 100 mls @ 1.979 mls/hr IV .Q24H PRN; Protocol; 5 MCG/KG/MIN PRN Reason: TITRATE PER MD ORDER Last Titration: 06/15/17 07:45 Dose: 0 mcg/kg/min, 0 mls/hr Ceftriaxone Sodium (Rocephin 1 Gram Ivpb) 1 gm in 100 mls @ 100 mls/hr IVPB DAILY [facility] PRN Reason: Protocol Last Admin: 06/15/17 09:22 Dose: 100 mls/hr Vancomycin HCl (Vancomycin 1gm) 1 gm in 250 mls @ 167 mls/hr IVPB DAILY [facility] PRN Reason: Protocol Last Admin: 06/15/17 09:23 Dose: 167 mls/hr Dextrose (Dextrose 5% In Water 1000 Ml) 1,000 mls @ 75 mls/hr IV .[id number] [facility] Isosorbide Mononitrate (Imdur) 60 mg PO DAILY [facility] Last Admin: 06/15/17 09:22 Dose: 60 mg Methylprednisolone (Solu-Medrol) 40 mg IVP Q12 [facility] Last Admin: 06/15/17 09:23 Dose: 40 mg Metoprolol Tartrate (Lopressor) 5 mg IV Q8H [facility] Last Admin: 06/15/17 09:23 Dose: 5 mg Mupirocin (Bactroban Ointment) 0 gm TOP BID [facility] Last Admin: 06/14/17 18:26 Dose: 1 applic Pantoprazole Sodium (Protonix Susp) 40 mg GT 0600 [facility] Last Admin: 06/15/17 05:24 Dose: 40 mg - Labs Labs: 06/15/17 06:00 06/15/17 06:00 PT 14.7 Seconds (9.9-11.8) H 06/13/17 17:33 INR 1.36 (0.93-1.08) H 06/13/17 17:33 APTT 85.1 Seconds (23.7-30.8) H* 06/15/17 06:00 - Constitutional Appears: Confused, Chronically Ill - Head Exam Head Exam: ATRAUMATIC, NORMOCEPHALIC - Eye Exam Pupil Exam: Miosis Additional comments: Pupils are still miotic, but now slightly responsive - ENT Exam ENT Exam: Mucous Membranes Moist - Neck Exam Neck Exam: absent: Lymphadenopathy, Thyromegaly - Respiratory Exam Respiratory Exam: Rhonchi. absent: Rales, Wheezes - Cardiovascular Exam Cardiovascular Exam: RRR, +S1, +S2 - GI/Abdominal Exam GI & Abdominal Exam: Soft. absent: Distended, Firm, Guarding, Rigid - Extremities Exam Additional comments: B/L LE dressings intact. Previously noted to have eytherma and ulceration with purulent drainage. No necrosis or bleeding. - Neurological Exam Additional comments: Lethargic, arousable, obeying simple commands, answering simple questions - Skin Skin Exam: Dry, Intact Additional comments: except as noted in the extremities exam Assessment and Plan - Assessment and Plan (Free Text) Assessment: 87 yo M with hypercapnic respiratory failure and AMS s/p extubation 2/2 NSTEMI vs CHF exacerbation vs COPD exacerbation. With past medical history of COPD, CHF with LVEF 17% on echo yesterday, Paget's disease, HTN. Plan: Neuro: - Continues to have slightly AMS, though significant improved since admission, likely 2/2 hypercapnic respiratory failure 2/2 NSTEMI vs COPD exacerbation - Head CT showing small hypodense lacunar infarct within the left cerebellar lobe considered to be subacute. MRI and MRA show no acute ischemic or hemorrhagic infarcts - Pupils still miotic, symmetric, though responsiveness improved - Urine drug screen and tox screen significant for benzodiazepines, but collected after intubation and sedation on versed - Neuro checks Q4H - EEG completed, pending read - Neurology (Matthew) on consult, all recs appreciated Pulm: - H/o COPD and tobacco abuse, admitted for hypercapnic respiratory failure, now extubated, maintaining O2 sat on 3LNC - ABG shows chronic respiratory acidosis with compensatory metabolic alkalosis - On Solumedrol and Duoneb tomer and PRN CV: - History of CHF, echo yesterday significant for LVEF 17%, down from 30% in 2016, likely 2/2 NSTEMI - NSTEMI with ST changes on EKG, troponins plateaued and now downtrending - On heparin drip for 48 hrs, ASA, statin, plavix, beta tammy - Cardiology (Elkind) on consult, all recs appreciated - Discontinue lasix and fluids - On lopressor, Imdur, Hydralazine 10mg IV prn - Permissive HTN - Daily weights GI: - Pepcid for PPx - Currently NPO pending swallow eval Renal: - JASWINDER, improving - Hypernatremic, hyperchloremic, improving after fluid administration - Discontinue fluid and diuretics - Renally dose all medications - Monitor and replete lytes as needed - Nephrology on consult, all recs appreciated Endo: - Maintain euglycemia - Recheck BMP in AM Heme: - H/H stable, no active bleed - Recheck CBC in AM ID: - Afebrile, mild leukocytosis, likely 2/2 steroids - Chronic venous stasis ulcerations b/l shins. Receiving topical mupirocin. Podiatry consulted, all recs appreciated. - Wound Cx shows gram positive cocci and gram negative rods - BCx, UCx, and SCx pending - On renally dosed cefipime and vancomycin - ID consulted, all recs appreciated - Continue to monitor PPx: Pepcid for GI, Heparin gtt covers for DVT Case discussed and reviewed with attending <Zac Oh - Last Filed: 06/15/17 14:08> Objective - Vital Signs/Intake and Output Vital Signs (last 24 hours): Temp Pulse Resp BP Pulse Ox 95.6 F L 62 10 L 150/67 99 06/15/17 08:02 06/15/17 11:40 06/15/17 11:40 06/15/17 11:11 06/15/17 11:40 Intake and Output: 06/15/17 06/15/17 06:59 18:59 Intake Total 2290 80 Output Total 200 Balance 2090 80 - Medications Medications: Current Medications Albuterol/Ipratropium (Duoneb 3 Mg/0.5 Mg (3 Ml) Ud) 3 ml IH [id number] [facility] Last Admin: 06/15/17 13:07 Dose: 3 ml Albuterol/Ipratropium (Duoneb 3 Mg/0.5 Mg (3 Ml) Ud) 3 ml IH Q2H PRN PRN Reason: Shortness of Breath Aspirin (Ecotrin) 81 mg PO DAILY [facility] Last Admin: 06/15/17 09:22 Dose: 81 mg Atorvastatin Calcium (Lipitor) 10 mg PO DAILY [facility] Last Admin: 06/15/17 09:22 Dose: 10 mg Clopidogrel Bisulfate (Plavix) 75 mg PO DAILY [facility] Last Admin: 06/15/17 09:22 Dose: 75 mg Fentanyl (Fentanyl) 50 mcg IVP Q2H PRN PRN Reason: Sedation Last Admin: 06/14/17 16:23 Dose: 50 mcg Hydralazine HCl (Apresoline) 10 mg IVP Q6 PRN PRN Reason: high blood pressure Heparin Sodium/Dextrose (Heparin 25,000 Units/250ml In D5w) 25,000 units in 250 mls @ 7.914 mls/hr IV .Q24H [facility]; 12 UNITS/KG/HR PRN Reason: Protocol Last Admin: 06/15/17 08:32 Dose: 15.92 units/kg/hr, 10.5 mls/hr Propofol (Diprivan) 1,000 mg in 100 mls @ 1.979 mls/hr IV .Q24H PRN; Protocol; 5 MCG/KG/MIN PRN Reason: TITRATE PER MD ORDER Last Titration: 06/15/17 07:45 Dose: 0 mcg/kg/min, 0 mls/hr Ceftriaxone Sodium (Rocephin 1 Gram Ivpb) 1 gm in 100 mls @ 100 mls/hr IVPB DAILY [facility] PRN Reason: Protocol Last Admin: 06/15/17 09:22 Dose: 100 mls/hr Vancomycin HCl (Vancomycin 1gm) 1 gm in 250 mls @ 167 mls/hr IVPB DAILY [facility] PRN Reason: Protocol Last Admin: 06/15/17 09:23 Dose: 167 mls/hr Dextrose (Dextrose 5% In Water 1000 Ml) 1,000 mls @ 75 mls/hr IV .[id number] [facility] Last Admin: 06/15/17 13:38 Dose: 75 mls/hr Isosorbide Mononitrate (Imdur) 60 mg PO DAILY [facility] Last Admin: 06/15/17 09:22 Dose: 60 mg Methylprednisolone (Solu-Medrol) 40 mg IVP Q12 [facility] Last Admin: 06/15/17 09:23 Dose: 40 mg Metoprolol Tartrate (Lopressor) 5 mg IV Q8H [facility] Last Admin: 06/15/17 09:23 Dose: 5 mg Mupirocin (Bactroban Ointment) 0 gm TOP BID [facility] Last Admin: 06/14/17 18:26 Dose: 1 applic Pantoprazole Sodium (Protonix Susp) 40 mg GT 0600 [facility] Last Admin: 06/15/17 05:24 Dose: 40 mg - Labs Labs: 06/15/17 06:00 06/15/17 06:00 PT 14.7 Seconds (9.9-11.8) H 06/13/17 17:33 INR 1.36 (0.93-1.08) H 06/13/17 17:33 APTT 85.1 Seconds (23.7-30.8) H* 06/15/17 06:00 Assessment and Plan - Assessment and Plan (Free Text) Assessment: Patient seen and examined on rounds today. Agree with residents note, A/P with following exceptions/additions: Patient extubated earlier this morning to 3LNC, tolerating well. Pt is awake, alert, answers questions appropriately, reports no major complaints. Passed speech and swallow. Denies fever, chills, cough, chest pain, sob, palpitations. Wong discontinued. Patient afebrile, HD stable, comfortable on 3LNC, sat 94% Resp failure, resolved AMS, resolved NSTEMI COPD exacerbation CHF Cellulitis Recommend - monitor resp status - cont with supp O2 - Duonebs q6hr standing - decrease steroids to Solumedrol 40mg IV Q12h - cont with Rocephin, IV Vanco as per ID - heparin drip for 48 hrs, ASA, statin, plavix, beta tammy - Cr stable, DC IV fluids - start low salt diet - GI ppx, Pepcid - DVT ppx, Heparin drip - transfer to telemetry
--- NOTE | 2017-06-15 13:55 | CP.PCM.PN ---
<Hawa Ram - Last Filed: 06/15/17 14:12> Subjective - Date & Time of Evaluation Date of Evaluation: 06/15/17 Time of Evaluation: 09:10 - Subjective Subjective: Hawa Ram DO, PGY-1, Internal Medicine, Hospitalist Service Patient seen and examined at bedside. Per nursing, patient was agitated yesterday and was started on diprivan drip. This morning sedation is off, patient remains intubated. Attempts to open eyes on verbal command. Moves all four extremities, grimaces to pain. Currently on CPAP trial Objective - Vital Signs/Intake and Output Vital Signs (last 24 hours): Temp Pulse Resp BP Pulse Ox 95.6 F L 62 10 L 150/67 99 06/15/17 08:02 06/15/17 11:40 06/15/17 11:40 06/15/17 11:11 06/15/17 11:40 Intake and Output: 06/15/17 06/15/17 06:59 18:59 Intake Total 2290 80 Output Total 200 Balance 2090 80 - Medications Medications: Current Medications Albuterol/Ipratropium (Duoneb 3 Mg/0.5 Mg (3 Ml) Ud) 3 ml IH [id number] [facility] Last Admin: 06/15/17 13:07 Dose: 3 ml Albuterol/Ipratropium (Duoneb 3 Mg/0.5 Mg (3 Ml) Ud) 3 ml IH Q2H PRN PRN Reason: Shortness of Breath Aspirin (Ecotrin) 81 mg PO DAILY [facility] Last Admin: 06/15/17 09:22 Dose: 81 mg Atorvastatin Calcium (Lipitor) 10 mg PO DAILY [facility] Last Admin: 06/15/17 09:22 Dose: 10 mg Clopidogrel Bisulfate (Plavix) 75 mg PO DAILY [facility] Last Admin: 06/15/17 09:22 Dose: 75 mg Fentanyl (Fentanyl) 50 mcg IVP Q2H PRN PRN Reason: Sedation Last Admin: 06/14/17 16:23 Dose: 50 mcg Hydralazine HCl (Apresoline) 10 mg IVP Q6 PRN PRN Reason: high blood pressure Heparin Sodium/Dextrose (Heparin 25,000 Units/250ml In D5w) 25,000 units in 250 mls @ 7.914 mls/hr IV .Q24H [facility]; 12 UNITS/KG/HR PRN Reason: Protocol Last Admin: 06/15/17 08:32 Dose: 15.92 units/kg/hr, 10.5 mls/hr Propofol (Diprivan) 1,000 mg in 100 mls @ 1.979 mls/hr IV .Q24H PRN; Protocol; 5 MCG/KG/MIN PRN Reason: TITRATE PER MD ORDER Last Titration: 06/15/17 07:45 Dose: 0 mcg/kg/min, 0 mls/hr Ceftriaxone Sodium (Rocephin 1 Gram Ivpb) 1 gm in 100 mls @ 100 mls/hr IVPB DAILY [facility] PRN Reason: Protocol Last Admin: 06/15/17 09:22 Dose: 100 mls/hr Vancomycin HCl (Vancomycin 1gm) 1 gm in 250 mls @ 167 mls/hr IVPB DAILY [facility] PRN Reason: Protocol Last Admin: 06/15/17 09:23 Dose: 167 mls/hr Dextrose (Dextrose 5% In Water 1000 Ml) 1,000 mls @ 75 mls/hr IV .[id number] [facility] Last Admin: 06/15/17 13:38 Dose: 75 mls/hr Isosorbide Mononitrate (Imdur) 60 mg PO DAILY [facility] Last Admin: 06/15/17 09:22 Dose: 60 mg Methylprednisolone (Solu-Medrol) 40 mg IVP Q12 [facility] Last Admin: 06/15/17 09:23 Dose: 40 mg Metoprolol Tartrate (Lopressor) 5 mg IV Q8H [facility] Last Admin: 06/15/17 09:23 Dose: 5 mg Mupirocin (Bactroban Ointment) 0 gm TOP BID [facility] Last Admin: 06/14/17 18:26 Dose: 1 applic Pantoprazole Sodium (Protonix Susp) 40 mg GT 0600 [facility] Last Admin: 06/15/17 05:24 Dose: 40 mg - Labs Labs: 06/15/17 06:00 06/15/17 06:00 PT 14.7 Seconds (9.9-11.8) H 06/13/17 17:33 INR 1.36 (0.93-1.08) H 06/13/17 17:33 APTT 85.1 Seconds (23.7-30.8) H* 06/15/17 06:00 - Constitutional Appears: No Acute Distress, Confused, Chronically Ill - Head Exam Head Exam: ATRAUMATIC, NORMAL INSPECTION - Eye Exam Eye Exam: EOMI, Normal appearance Pupil Exam: NORMAL ACCOMODATION - ENT Exam ENT Exam: Mucous Membranes Moist - Neck Exam Neck Exam: Full ROM Additional comments: +ETT - Respiratory Exam Respiratory Exam: Rhonchi, NORMAL BREATHING PATTERN. absent: Rales, Wheezes - Cardiovascular Exam Cardiovascular Exam: REGULAR RHYTHM, +S1, +S2 - GI/Abdominal Exam GI & Abdominal Exam: Soft. absent: Guarding, Rigid, Tenderness, Rebound - Rectal Exam Rectal Exam: Deferred - Extremities Exam Additional comments: +Heel protectors +Previously noted to have eytherma and ulceration with purulent drainage. No necrosis or bleeding, currently wrapped with curlex dressing +Venous stasis skin changes - Back Exam Back Exam: NORMAL INSPECTION - Neurological Exam Neurological Exam: Awake, Oriented x3 Additional comments: Intubated, off sedation - Psychiatric Exam Psychiatric exam: Normal Affect, Normal Mood - Skin Skin Exam: Dry, Normal Color, Warm Additional comments: +ecchymosis noted on UE bilaterally Per podiatry note: DERM: Open ulcerations to anterior aspect of bilateral legs measuring 18cm x 7cm x 0.2cm with mix of fibrotic and granular base. Moderate sero-sanguinous drainage is noted. Mal-odor is present. No purulent discharge noted. Erythema noted around the wound marings >2cm VASC: Palpable DP and PT noted 1/4 bilaterally. 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 COPD exacerbation vs. electrolyte abnormality vs. CVA. Patient has been intubated due to inability to protect airway and placed in ICU for further monitoring and evaluation. Patient to be evaluated by neurology, cardiology and nephrology for further workup of AMS. Patient is currently stable. . Plan: 1) Acute Hypercapnic Respiratory Failure -Intubated, off sedation -F/U weaning trial, if tolerates, will attempt to extubate today -Serial CXRs and ABGs -Solumedrol 40mg IV Q12H -Nebulizer tx Q6H -Nebulizer tx Q2H prn -Neurology on consult, f/u recommendations 2) Altered Mental Status, r/o infectious, neurological etiology -Intubated and off sedation -Head CT: small hypodense lacunar infarct within the left cerebellar lobe considered to be subacute -Pinpoint pupils on exam, with no improvement in AMS with admin of narcan -Received Vanco and Cefepime in the ED -UDS + benzo -MRI showing chronic microvascular changes, MRA -EEG completed, f/u read -F/U repeat Head CT -Blood cx showing no growth x 24 hours, urine cx no growth -Wound cx growing gram positive cocci and gram negative rods, f/u sensitivities -Continue Vancomycin and Rocephin (day 2) -ID consulted, f/u recommendations -Neurology consult, appreciate recs -Continue ASA, plavix, Lipitor 3) NSTEMI -Troponins trending down (0.14-> 0.98-> 1.16->0.43) -Continue to trend trops -Heparin drip started -Continue ASA, plavix, imdur -Cardiology on consult, f/u recommendations 4) Congestive Heart Failure (Systolic) -Last known EF in 08/2016 was 30-35% -BNP 27,500 on admission -Currently holding lasix, will resume if patient is in fluid overload -Continue home PO meds -Strict I&O's -Daily weights -Cardiology consult, appreciate recs 5) Acute Kidney Injury -BUN/Cr: 33/1.4, improving -D5 @ 75cc/hr -Nephrology on consult, f/u recommendations 6) Hypertension -Lopressor 5mg Q8H -Hydralazine 10mg Q6H 7) Hyperkalemia -Potassium 6.2 on admission -S/P Kayexylate -Continue to monitor 8) GI/DVT ppx -Protonix -Heparin drip <Stephanie Julien - Last Filed: 06/17/17 10:20> Objective - Vital Signs/Intake and Output Vital Signs (last 24 hours): Temp Pulse Resp BP Pulse Ox 97.5 F L 70 12 138/90 100 06/16/17 16:00 06/17/17 09:46 06/17/17 05:10 06/17/17 09:46 06/17/17 05:10 Intake and Output: 06/17/17 06/17/17 06:59 18:59 Intake Total 250 Balance 250 - Medications Medications: Current Medications Acetaminophen (Tylenol 325mg Tab) 650 mg PO Q6H PRN PRN Reason: Pain, moderate (4-7) Last Admin: 06/15/17 20:01 Dose: 650 mg Albuterol/Ipratropium (Duoneb 3 Mg/0.5 Mg (3 Ml) Ud) 3 ml IH [id number] [facility] Last Admin: 06/17/17 07:57 Dose: 3 ml Albuterol/Ipratropium (Duoneb 3 Mg/0.5 Mg (3 Ml) Ud) 3 ml IH Q2H PRN PRN Reason: Shortness of Breath Aspirin (Ecotrin) 81 mg PO DAILY [facility] Last Admin: 06/17/17 09:46 Dose: 81 mg Atorvastatin Calcium (Lipitor) 10 mg PO DAILY [facility] Last Admin: 06/17/17 09:46 Dose: 10 mg Clopidogrel Bisulfate (Plavix) 75 mg PO DAILY [facility] Last Admin: 06/17/17 09:46 Dose: 75 mg Hydralazine HCl (Apresoline) 10 mg IVP Q6 PRN PRN Reason: high blood pressure Ceftriaxone Sodium (Rocephin 1 Gram Ivpb) 1 gm in 100 mls @ 100 mls/hr IVPB DAILY [facility] PRN Reason: Protocol Last Admin: 06/17/17 09:47 Dose: 100 mls/hr Vancomycin HCl (Vancomycin 1gm) 1 gm in 250 mls @ 167 mls/hr IVPB DAILY [facility] PRN Reason: Protocol Last Admin: 06/17/17 09:47 Dose: 167 mls/hr Dextrose (Dextrose 5% In Water 1000 Ml) 1,000 mls @ 75 mls/hr IV .[id number] [facility] Last Admin: 06/17/17 09:52 Dose: 75 mls/hr Heparin Sodium/Dextrose (Heparin 25,000 Units/250ml In D5w) 25,000 units in 250 mls @ 12.084 mls/hr IV .[id number] PRN; Protocol; 18 UNITS/KG/HR PRN Reason: ADJUST RATE PER PROTOCOL Last Admin: 06/17/17 04:39 Dose: 15 units/kg/hr, 10.07 mls/hr Isosorbide Mononitrate (Imdur) 60 mg PO DAILY [facility] Last Admin: 06/17/17 09:46 Dose: 60 mg Methylprednisolone (Solu-Medrol) 40 mg IVP Q12 [facility] Last Admin: 06/17/17 09:46 Dose: 40 mg Metoprolol Tartrate (Lopressor) 25 mg PO BID [facility] Last Admin: 06/17/17 09:46 Dose: 25 mg Mupirocin (Bactroban Ointment) 0 gm TOP BID [facility] Last Admin: 06/17/17 09:53 Dose: 1 applic Pantoprazole Sodium (Protonix Susp) 40 mg GT 0600 [facility] Last Admin: 06/17/17 06:19 Dose: 40 mg - Labs Labs: 06/17/17 05:15 06/17/17 05:15 PT 14.7 Seconds (9.9-11.8) H 06/13/17 17:33 INR 1.36 (0.93-1.08) H 06/13/17 17:33 APTT 76.0 Seconds (23.7-30.8) H* 06/17/17 05:15 Attending/Attestation - Attestation I have personally seen and examined this patient.: Yes I have fully participated in the care of the patient.: Yes I have reviewed all pertinent clinical information, including history, physical exam and plan: Yes Notes (Text): I have seen and examined the patient at bedside. Agree with the above note with the following additions/ exceptions: Briefly this is 87 year old male with history of COPD, CHF last known EF of 30-35% in 08/2016, Paget's disease, HTN who presented with AMS and found to have hypercapnic respiratory failure secondary to COPD exacerbation vs. electrolyte abnormality vs. CVA. Patient remains intubated and is having cpap trial now. CXR shows possible pneumonia. Also found to have bilateral LE ulceration. Will follow up on wound cultures. He was started on vanco and rocephin. UDS positive for opiates. Head CT revealed small hypodense lacunar infarct within the left cerebellar lobe considered to be subacute. MRI showed chronic changes. For NSTEMI, he is on aspirin, plavix, imdur and heparin drip. Will hold lasix as he appears dehydrated. Upon discharge patient will follow up with Dr Ferrari. Dr Stephanie Julien
--- NOTE | 2017-06-15 15:27 | CARD ---
APPROVED REPORT EKG Measurement Heart [id number] ME [id number] <Conclusion> Sinus bradycardia Possible Left atrial enlargement Left ventricular hypertrophy with QRS widening and repolarization abnormality Inferior infarct, age undetermined Prolonged QT Abnormal ECG
--- NOTE | 2017-06-15 18:12 | CP.PCM.PN ---
Subjective - Date & Time of Evaluation Date of Evaluation: 06/15/17 Time of Evaluation: 17:00 - Subjective Subjective: Infectious Disease Follow Up: June 15, 2017 87 yo male brought in for lethargy and AMS. The patient has an extensive medical history that includes COPD, CHF last known EF of 30-35% in 08/2016, HTN , Paget's disease and PAD. The patient required intubation and ventilation [place] [facility] [place] Unable to obtain more history at this time. At best grimaces to painful stimulation. Extubated this morning but remains lethargic. He has been arousable and has been able to follow some simple commands. Objective - Vital Signs/Intake and Output Vital Signs (last 24 hours): Temp Pulse Resp BP Pulse Ox 95.6 F L 80 18 139/58 L 94 L 06/15/17 08:02 06/15/17 17:30 06/15/17 17:30 06/15/17 17:00 06/15/17 17:30 Intake and Output: 06/15/17 06/15/17 06:59 18:59 Intake Total 2290 80 Output Total 200 Balance 2090 80 - Medications Medications: Current Medications Albuterol/Ipratropium (Duoneb 3 Mg/0.5 Mg (3 Ml) Ud) 3 ml IH [id number] [facility] Last Admin: 06/15/17 13:07 Dose: 3 ml Albuterol/Ipratropium (Duoneb 3 Mg/0.5 Mg (3 Ml) Ud) 3 ml IH Q2H PRN PRN Reason: Shortness of Breath Aspirin (Ecotrin) 81 mg PO DAILY [facility] Last Admin: 06/15/17 09:22 Dose: 81 mg Atorvastatin Calcium (Lipitor) 10 mg PO DAILY [facility] Last Admin: 06/15/17 09:22 Dose: 10 mg Clopidogrel Bisulfate (Plavix) 75 mg PO DAILY [facility] Last Admin: 06/15/17 09:22 Dose: 75 mg Fentanyl (Fentanyl) 50 mcg IVP Q2H PRN PRN Reason: Sedation Last Admin: 06/14/17 16:23 Dose: 50 mcg Hydralazine HCl (Apresoline) 10 mg IVP Q6 PRN PRN Reason: high blood pressure Heparin Sodium/Dextrose (Heparin 25,000 Units/250ml In D5w) 25,000 units in 250 mls @ 7.914 mls/hr IV .Q24H [facility]; 12 UNITS/KG/HR PRN Reason: Protocol Last Titration: 06/15/17 15:33 Dose: 18 units/kg/hr, 11.871 mls/hr Propofol (Diprivan) 1,000 mg in 100 mls @ 1.979 mls/hr IV .Q24H PRN; Protocol; 5 MCG/KG/MIN PRN Reason: TITRATE PER MD ORDER Last Titration: 06/15/17 07:45 Dose: 0 mcg/kg/min, 0 mls/hr Ceftriaxone Sodium (Rocephin 1 Gram Ivpb) 1 gm in 100 mls @ 100 mls/hr IVPB DAILY [facility] PRN Reason: Protocol Last Admin: 06/15/17 09:22 Dose: 100 mls/hr Vancomycin HCl (Vancomycin 1gm) 1 gm in 250 mls @ 167 mls/hr IVPB DAILY [facility] PRN Reason: Protocol Last Admin: 06/15/17 09:23 Dose: 167 mls/hr Dextrose (Dextrose 5% In Water 1000 Ml) 1,000 mls @ 75 mls/hr IV .[id number] [facility] Last Admin: 06/15/17 13:38 Dose: 75 mls/hr Isosorbide Mononitrate (Imdur) 60 mg PO DAILY [facility] Last Admin: 06/15/17 09:22 Dose: 60 mg Methylprednisolone (Solu-Medrol) 40 mg IVP Q12 [facility] Last Admin: 06/15/17 09:23 Dose: 40 mg Metoprolol Tartrate (Lopressor) 5 mg IV Q8H [facility] Last Admin: 06/15/17 09:23 Dose: 5 mg Mupirocin (Bactroban Ointment) 0 gm TOP BID [facility] Last Admin: 06/15/17 11:00 Dose: 1 applic Pantoprazole Sodium (Protonix Susp) 40 mg GT 0600 [facility] Last Admin: 06/15/17 05:24 Dose: 40 mg - Labs Labs: 06/15/17 06:00 06/15/17 06:00 PT 14.7 Seconds (9.9-11.8) H 06/13/17 17:33 INR 1.36 (0.93-1.08) H 06/13/17 17:33 APTT 29.6 Seconds (23.7-30.8) 06/15/17 13:55 - Constitutional Appears: Non-toxic, No Acute Distress, Chronically Ill - Head Exam Head Exam: ATRAUMATIC, NORMOCEPHALIC - Eye Exam Eye Exam: EOMI, PERRL Pupil Exam: NORMAL ACCOMODATION, PERRL - ENT Exam ENT Exam: Mucous Membranes Moist, Normal External Ear Exam, TM's Normal Bilaterally - Neck Exam Neck Exam: Full ROM, Normal Inspection - Respiratory Exam Respiratory Exam: Decreased Breath Sounds, NORMAL BREATHING PATTERN. absent: Rales, Rhonchi, Wheezes - Cardiovascular Exam Cardiovascular Exam: REGULAR RHYTHM, RRR, +S1, +S2 - GI/Abdominal Exam GI & Abdominal Exam: Soft, Normal Bowel Sounds. absent: Distended, Tenderness - Extremities Exam Additional comments: +Heel protectors +Venous stasis skin changes B/L LE wrapped with curlex cellulitis of the bilateral lower extremities and chronic venous stasis. open ulcerations on the bilateral legs anteriorly. wounds are malodorous. - Neurological Exam Neurological Exam: Alert, Awake, CN II-XII Intact Additional comments: lethargic but arousable. - Skin Additional comments: as per extremity exam. Assessment and Plan - Assessment and Plan (Free Text) Assessment: 87 yo male with AMS and lethargy. Etiology unclear. Broad spectrum coverage for now with Rocephin and Vancomycin treatment. Ignacio cultures. Imaging studies. Patient was intubated and ventilated. He is now waking up despite being off sedation. Extubated today. He is lethargic but arousable and able to follow simple commands. Remains in ICU currently. Supportive care. Obtain procalcitonin. Follow up WBC and fever trend. Urine drug screen positive for Benzodiazepine. Respiratory failure. Renal insufficiency (acute or chronic?). Patient has a history of hypertension and systolic congestive heart failure. Thank you for allowing me to participate in the care of the patient, we will follow with you.
[2017-06-16] MEDS: Metoprolol 1 mg/ml Inj IV SCH (00:30)
[2017-06-16] MEDS: Albuterol-Ipratrop 3 mg / 0.5 (3 ml) UD IH SCH ×4 (02:40→20:06)
[2017-06-16 05:05] LABS: CREATININE, RANDOM URINE 42 mg/dL (20-370)
[2017-06-16] MEDS: Pantoprazole 40 mg Susp UD GT SCH (05:17)
[2017-06-16 06:29] LABS: ALB/GLOB RATIO 0.9 (1.1-1.8); BILIRUBIN,TOTAL 0.6 mg/dL (0.2-1.3); CALCIUM 7.2 mg/dL (8.4-10.5); MAGNESIUM 1.8 mg/dL (1.7-2.2); PHOSPHOROUS 5.3 mg/dL (2.5-4.5); POTASSIUM 4.3 mmol/L (3.6-5.0); TOTAL PROTEIN 6.3 g/dL (5.8-8.3)
[2017-06-16] MEDS: Heparin 25,000units in D5W 25,000 UNITS/250 ML BAG IV SCH (06:40)
[2017-06-16 06:41] LABS: GRAN # 10.82 (1.4-6.5); GRAN % 95.1 % (50.0-68.0); HEMATOCRIT 43.9 % (42.0-52.0); LYMPH # 0.2 (1.2-3.4); LYMPH % 1.8 % (22.0-35.0); MEAN CELL VOLUME 92.6 fl (80.0-105.0); MEAN CORPUSCULAR HEMOGLOBIN 28.5 pg (25.0-35.0); MEAN CORPUSCULAR HGB CONC 30.8 g/dl (31.0-37.0); MEAN PLATELET VOLUME 10.7 fl (7.0-11.0); MONO # 0.4 (0.1-0.6); MONO % 3.1 % (1.0-6.0); RED CELL DISTRIBUTION WIDTH 17.4 % (11.5-14.5); WHITE BLOOD COUNT 11.4 10^3/ul (4.5-11.0)
--- NOTE | 2017-06-16 07:28 | CP.PCM.PN ---
Subjective - Date & Time of Evaluation Date of Evaluation: 06/16/17 Time of Evaluation: 07:00 - Subjective Subjective: Stable on ICU. Extubated yesterday. V/S noted. RSR Lungs: scattered rhonchi Cor.: S1S2, WAGNER Abd.: soft Ext: edema, bandaged Neuro.: sedated I/O recorded as 2508/500 Labs and ABGs noted: PTT= 57, Cr.= 1.6 BC x2 NG at 48 hrs. Wound cultures + GPC. Echo noted: Sev. LVD, mod/sev AI, mild , mod/sev. MR, mld/mod PH ECG 06/15 : S. Ignacio., LVH, STTW changes CXR today: pending. About the same to me. MRI Brain, MRA Head: noted. No Stroke seen. Objective - Vital Signs/Intake and Output Vital Signs (last 24 hours): Temp Pulse Resp BP Pulse Ox 97 F L 69 21 156/76 H 96 06/15/17 16:00 06/16/17 06:50 06/16/17 06:50 06/16/17 06:00 06/16/17 06:50 Intake and Output: 06/16/17 06/16/17 06:59 18:59 Intake Total 250 Balance 250 - Medications Medications: Current Medications Acetaminophen (Tylenol 325mg Tab) 650 mg PO Q6H PRN PRN Reason: Pain, moderate (4-7) Last Admin: 06/15/17 20:01 Dose: 650 mg Albuterol/Ipratropium (Duoneb 3 Mg/0.5 Mg (3 Ml) Ud) 3 ml IH [id number] [facility] Last Admin: 06/16/17 02:40 Dose: 3 ml Albuterol/Ipratropium (Duoneb 3 Mg/0.5 Mg (3 Ml) Ud) 3 ml IH Q2H PRN PRN Reason: Shortness of Breath Aspirin (Ecotrin) 81 mg PO DAILY [facility] Last Admin: 06/15/17 09:22 Dose: 81 mg Atorvastatin Calcium (Lipitor) 10 mg PO DAILY [facility] Last Admin: 06/15/17 09:22 Dose: 10 mg Clopidogrel Bisulfate (Plavix) 75 mg PO DAILY [facility] Last Admin: 06/15/17 09:22 Dose: 75 mg Hydralazine HCl (Apresoline) 10 mg IVP Q6 PRN PRN Reason: high blood pressure Heparin Sodium/Dextrose (Heparin 25,000 Units/250ml In D5w) 25,000 units in 250 mls @ 7.914 mls/hr IV .Q24H [facility]; 12 UNITS/KG/HR PRN Reason: Protocol Last Admin: 06/16/17 06:40 Dose: 16 units/kg/hr, 10.552 mls/hr Ceftriaxone Sodium (Rocephin 1 Gram Ivpb) 1 gm in 100 mls @ 100 mls/hr IVPB DAILY [facility] PRN Reason: Protocol Last Admin: 06/15/17 09:22 Dose: 100 mls/hr Vancomycin HCl (Vancomycin 1gm) 1 gm in 250 mls @ 167 mls/hr IVPB DAILY [facility] PRN Reason: Protocol Last Admin: 06/15/17 09:23 Dose: 167 mls/hr Dextrose (Dextrose 5% In Water 1000 Ml) 1,000 mls @ 75 mls/hr IV .[id number] [facility] Last Admin: 06/16/17 03:32 Dose: 75 mls/hr Isosorbide Mononitrate (Imdur) 60 mg PO DAILY [facility] Last Admin: 06/15/17 09:22 Dose: 60 mg Methylprednisolone (Solu-Medrol) 40 mg IVP Q12 [facility] Last Admin: 06/15/17 21:49 Dose: 40 mg Metoprolol Tartrate (Lopressor) 5 mg IV Q8H [facility] Last Admin: 06/16/17 00:30 Dose: Not Given Mupirocin (Bactroban Ointment) 0 gm TOP BID [facility] Last Admin: 06/15/17 18:26 Dose: 1 applic Pantoprazole Sodium (Protonix Susp) 40 mg GT 0600 [facility] Last Admin: 06/16/17 05:17 Dose: 40 mg - Labs Labs: 06/16/17 05:45 06/16/17 05:45 PT 14.7 Seconds (9.9-11.8) H 06/13/17 17:33 INR 1.36 (0.93-1.08) H 06/13/17 17:33 APTT 57.4 Seconds (23.7-30.8) H 06/16/17 05:45 Assessment and Plan - Assessment and Plan (Free Text) Assessment: AMS/Lethargy/Respiatory Insufficiency + trops c/w acute OH Cellulites Acute on chronic kidney disease R/O pneumonia/ LAFREDO density on CXR R/O stroke CAD/NSEMI/LVD Valvlar Heart Disease: Mod/Sev. AI, Mild , Mild to moderate MR and TR, Mild to moderate PH CHF COPD/Bronchitis/Smoker PAD Paget's Disease Bladder cancer Hyperkalemia and Hypernatremia, resolving Plan: As per Intensivists, Pulmonary, ID and Neuro. IV > PO metoprolol AB Monitor: I/O, labs, PTT's, sats, cultures, neuro signs, etc. OOB to chair as tolerated.
--- NOTE | 2017-06-16 08:29 | CP.PCM.PN ---
<Andres Mckeon - Last Filed: 06/16/17 08:26> Subjective - Date & Time of Evaluation Date of Evaluation: 06/16/17 Time of Evaluation: 08: - Subjective Subjective: 87 yo male patient with PMHx of Paget's disease was seen at bedside this Am concerning ulcerations to bilateral legs. Dressing to bilateral legs appear cdi. Patient is able to communicate. Patient states that he had ulcerations to his bilateral legs for roughly 4 years after blisters had formed. Patient denies of any trauma. Patient denies of N/V/F/C or SOB today Objective - Vital Signs/Intake and Output Vital Signs (last 24 hours): Temp Pulse Resp BP Pulse Ox 97 F L 69 21 156/76 H 96 06/15/17 16:00 06/16/17 06:50 06/16/17 06:50 06/16/17 06:00 06/16/17 06:50 Intake and Output: 06/16/17 06/16/17 06:59 18:59 Intake Total 250 Balance 250 - Medications Medications: Current Medications Acetaminophen (Tylenol 325mg Tab) 650 mg PO Q6H PRN PRN Reason: Pain, moderate (4-7) Last Admin: 06/15/17 20:01 Dose: 650 mg Albuterol/Ipratropium (Duoneb 3 Mg/0.5 Mg (3 Ml) Ud) 3 ml IH [id number] [facility] Last Admin: 06/16/17 07:53 Dose: 3 ml Albuterol/Ipratropium (Duoneb 3 Mg/0.5 Mg (3 Ml) Ud) 3 ml IH Q2H PRN PRN Reason: Shortness of Breath Aspirin (Ecotrin) 81 mg PO DAILY [facility] Last Admin: 06/15/17 09:22 Dose: 81 mg Atorvastatin Calcium (Lipitor) 10 mg PO DAILY [facility] Last Admin: 06/15/17 09:22 Dose: 10 mg Clopidogrel Bisulfate (Plavix) 75 mg PO DAILY [facility] Last Admin: 06/15/17 09:22 Dose: 75 mg Hydralazine HCl (Apresoline) 10 mg IVP Q6 PRN PRN Reason: high blood pressure Heparin Sodium/Dextrose (Heparin 25,000 Units/250ml In D5w) 25,000 units in 250 mls @ 7.914 mls/hr IV .Q24H [facility]; 12 UNITS/KG/HR PRN Reason: Protocol Last Admin: 06/16/17 06:40 Dose: 16 units/kg/hr, 10.552 mls/hr Ceftriaxone Sodium (Rocephin 1 Gram Ivpb) 1 gm in 100 mls @ 100 mls/hr IVPB DAILY [facility] PRN Reason: Protocol Last Admin: 06/15/17 09:22 Dose: 100 mls/hr Vancomycin HCl (Vancomycin 1gm) 1 gm in 250 mls @ 167 mls/hr IVPB DAILY [facility] PRN Reason: Protocol Last Admin: 06/15/17 09:23 Dose: 167 mls/hr Dextrose (Dextrose 5% In Water 1000 Ml) 1,000 mls @ 75 mls/hr IV .[id number] [facility] Last Admin: 06/16/17 03:32 Dose: 75 mls/hr Isosorbide Mononitrate (Imdur) 60 mg PO DAILY [facility] Last Admin: 06/15/17 09:22 Dose: 60 mg Methylprednisolone (Solu-Medrol) 40 mg IVP Q12 [facility] Last Admin: 06/15/17 21:49 Dose: 40 mg Metoprolol Tartrate (Lopressor) 25 mg PO BID [facility] Mupirocin (Bactroban Ointment) 0 gm TOP BID [facility] Last Admin: 06/15/17 18:26 Dose: 1 applic Pantoprazole Sodium (Protonix Susp) 40 mg GT 0600 [facility] Last Admin: 06/16/17 05:17 Dose: 40 mg - Labs Labs: 06/16/17 05:45 06/16/17 05:45 PT 14.7 Seconds (9.9-11.8) H 06/13/17 17:33 INR 1.36 (0.93-1.08) H 06/13/17 17:33 APTT 57.4 Seconds (23.7-30.8) H 06/16/17 05:45 - Constitutional Appears: Well, Non-toxic, No Acute Distress - Head Exam Head Exam: ATRAUMATIC - Extremities Exam Additional comments: Bilateral lower extremity exam DERM: Open ulcerations to anterior aspect of bilateral legs measuring 18cm x 7cm x 0.2cm with mix of fibrotic and granular base. Moderate sero-sanguinous drainage is noted. Mal-odor is present. No purulent discharge noted. Erythema noted around the wound marings >2cm VASC: Palpable DP and PT noted 1/4 bilaterally. MEDICAL CERTIFICATION SPECIALIST less than 3 seconds noted to all digits - Neurological Exam Neurological Exam: Alert, Awake. absent: Oriented x3 - Skin Skin Exam: Normal Color, Warm Assessment and Plan - Assessment and Plan (Free Text) Assessment: 87 yo male patient presenting with infected ulcerations to anterior aspect of bilateral legs Plan: Patient was seen, evaluated and treated with all questions and concerns addressed labs and vitals reviewed Right leg wound culture Preliminary Gram (-) Amaury, Gram (+) Cocci Bilateral legs dressed with Bactroban, Telfa, DSD Continue IV Abx per ID Podiatry will continue to follow in-house <Noam Cummings - Last Filed: 06/16/17 09:28> Objective - Vital Signs/Intake and Output Vital Signs (last 24 hours): Temp Pulse Resp BP Pulse Ox 97 F L 69 21 156/76 H 96 06/15/17 16:00 06/16/17 06:50 06/16/17 07:00 06/16/17 06:00 06/16/17 07:00 Intake and Output: 06/16/17 06/16/17 06:59 18:59 Intake Total 250 Balance 250 - Medications Medications: Current Medications Acetaminophen (Tylenol 325mg Tab) 650 mg PO Q6H PRN PRN Reason: Pain, moderate (4-7) Last Admin: 06/15/17 20:01 Dose: 650 mg Albuterol/Ipratropium (Duoneb 3 Mg/0.5 Mg (3 Ml) Ud) 3 ml IH [id number] [facility] Last Admin: 06/16/17 07:53 Dose: 3 ml Albuterol/Ipratropium (Duoneb 3 Mg/0.5 Mg (3 Ml) Ud) 3 ml IH Q2H PRN PRN Reason: Shortness of Breath Aspirin (Ecotrin) 81 mg PO DAILY [facility] Last Admin: 06/15/17 09:22 Dose: 81 mg Atorvastatin Calcium (Lipitor) 10 mg PO DAILY [facility] Last Admin: 06/15/17 09:22 Dose: 10 mg Clopidogrel Bisulfate (Plavix) 75 mg PO DAILY [facility] Last Admin: 06/15/17 09:22 Dose: 75 mg Hydralazine HCl (Apresoline) 10 mg IVP Q6 PRN PRN Reason: high blood pressure Heparin Sodium/Dextrose (Heparin 25,000 Units/250ml In D5w) 25,000 units in 250 mls @ 7.914 mls/hr IV .Q24H [facility]; 12 UNITS/KG/HR PRN Reason: Protocol Last Admin: 06/16/17 06:40 Dose: 16 units/kg/hr, 10.552 mls/hr Ceftriaxone Sodium (Rocephin 1 Gram Ivpb) 1 gm in 100 mls @ 100 mls/hr IVPB DAILY [facility] PRN Reason: Protocol Last Admin: 06/15/17 09:22 Dose: 100 mls/hr Vancomycin HCl (Vancomycin 1gm) 1 gm in 250 mls @ 167 mls/hr IVPB DAILY [facility] PRN Reason: Protocol Last Admin: 06/15/17 09:23 Dose: 167 mls/hr Dextrose (Dextrose 5% In Water 1000 Ml) 1,000 mls @ 75 mls/hr IV .[id number] [facility] Last Admin: 06/16/17 03:32 Dose: 75 mls/hr Isosorbide Mononitrate (Imdur) 60 mg PO DAILY [facility] Last Admin: 06/15/17 09:22 Dose: 60 mg Methylprednisolone (Solu-Medrol) 40 mg IVP Q12 [facility] Last Admin: 06/15/17 21:49 Dose: 40 mg Metoprolol Tartrate (Lopressor) 25 mg PO BID [facility] Mupirocin (Bactroban Ointment) 0 gm TOP BID [facility] Last Admin: 06/15/17 18:26 Dose: 1 applic Pantoprazole Sodium (Protonix Susp) 40 mg GT 0600 [facility] Last Admin: 06/16/17 05:17 Dose: 40 mg - Labs Labs: 06/16/17 05:45 06/16/17 05:45 PT 14.7 Seconds (9.9-11.8) H 06/13/17 17:33 INR 1.36 (0.93-1.08) H 06/13/17 17:33 APTT 57.4 Seconds (23.7-30.8) H 06/16/17 05:45 Attending/Attestation - Attestation I have personally seen and examined this patient.: Yes I have fully participated in the care of the patient.: Yes I have reviewed all pertinent clinical information, including history, physical exam and plan: Yes
--- NOTE | 2017-06-16 08:43 | PN ---
DATE: 06/16/2017(620am--710am) SUBJECTIVE: The patient is now extubated. He is comfortable, and not short of breath at rest. PHYSICAL EXAMINATION: VITAL SIGNS: Temperature is 97.0, pulse is 74, respirations 18, blood pressure 156/76. Oxygen saturation on nasal cannula is 97%. HEENT: Normocephalic and atraumatic. NECK: No JVD. CARDIOVASCULAR: Systolic ejection murmur at the lower left sternal border. No S3 gallop. LUNGS: Decreased breath sounds at the bases. Minimal rhonchi. No wheezing. EXTREMITIES: Mild edema. No cyanosis. No clubbing. Calves are nontender to palpation. GASTROINTESTINAL: Abdomen is soft, nontender and nondistended. Bowel sounds are positive. SKIN: Chronic cellulitic changes on both lower extremities. NEUROLOGIC: Limited at the present time. PERTINENT LABORATORY DATA: Chest x-ray was done this morning and reviewed. There are bilateral pulmonary infiltrates noted. Arterial blood gas was ordered for the morning-but is not in the computer at this point in time. IMPRESSION: 1. Respiratory failure. 2. Subacute cerebrovascular accident. 3. Chronic obstructive pulmonary disease. 4. Bilateral pneumonia. 5. Myocardial infarction. 6. Renal insufficiency. 7. Multiple electrolyte abnormalities. PLAN: The patient remains in the ICU. He is now off of the ventilator and breathing easily this morning. I did discuss the case with the night nurse at length. The night nurse stated that the patient had a very good night. On physical exam, there is less bronchospasm noted. I will continue with the current nebulizer treatments and current intravenous steroids (decreased yesterday) for now. I did review the chest x-ray. There are bilateral pulmonary infiltrates noted. I would continue with the antibiotic coverage as per infectious disease. Input by Dr. Martin is noted. There are no temperatures noted. There is a very mild leukocytosis. I will also order aspiration precautions for this patient. The patient's clinical status is certainly improved-compared to earlier in the week. However, he is is a very elderly patient with multiple serious medical disorders. Thus, his overall status/prognosis remains very guarded. I would continue with the cardiology and renal evaluations. Inputs are noted. I did discuss the case with the ICU chief operator synthesis yesterday. I will discuss the case with the entire ICU team in the next few moments. [place] MD [facility] # [id number] [facility]
[2017-06-16] MEDS: MethylPREDNISolone 40 mg Vial IVP SCH ×2 (09:39→21:10)
[2017-06-16] MEDS: Vancomycin 1gm in NS 250ml 1 GM/250 ML BAG IVPB SCH (09:40)
[2017-06-16] MEDS: cefTRIAXone 1 gm 1 GM/100 ML BAG IVPB SCH (09:40)
--- NOTE | 2017-06-16 10:20 | CP.PCM.PN ---
<Gisel Pearson - Last Filed: 06/16/17 10:12> Subjective - Date & Time of Evaluation Date of Evaluation: 06/16/17 Time of Evaluation: 10:00 - Subjective Subjective: IM Progress Note Patient was seen and examined at bedside. No acute complaints at this time. Pt is AAOx3, s/p extubation and satting well on NC. Pt is tolerating soft mechanical diet. No acute or adverse events overnight as per nursing staff. Pt denied fever, chills, sob, chest pains, abdominal pains, or n/v/d/c. Objective - Vital Signs/Intake and Output Vital Signs (last 24 hours): Temp Pulse Resp BP Pulse Ox 97 F L 76 21 135/49 L 96 06/15/17 16:00 06/16/17 09:38 06/16/17 07:00 06/16/17 09:38 06/16/17 07:00 Intake and Output: 06/16/17 06/16/17 06:59 18:59 Intake Total 250 Balance 250 - Medications Medications: Current Medications Acetaminophen (Tylenol 325mg Tab) 650 mg PO Q6H PRN PRN Reason: Pain, moderate (4-7) Last Admin: 06/15/17 20:01 Dose: 650 mg Albuterol/Ipratropium (Duoneb 3 Mg/0.5 Mg (3 Ml) Ud) 3 ml IH [id number] [facility] Last Admin: 06/16/17 07:53 Dose: 3 ml Albuterol/Ipratropium (Duoneb 3 Mg/0.5 Mg (3 Ml) Ud) 3 ml IH Q2H PRN PRN Reason: Shortness of Breath Aspirin (Ecotrin) 81 mg PO DAILY [facility] Last Admin: 06/16/17 09:38 Dose: 81 mg Atorvastatin Calcium (Lipitor) 10 mg PO DAILY [facility] Last Admin: 06/16/17 09:38 Dose: 10 mg Clopidogrel Bisulfate (Plavix) 75 mg PO DAILY [facility] Last Admin: 06/16/17 09:38 Dose: 75 mg Hydralazine HCl (Apresoline) 10 mg IVP Q6 PRN PRN Reason: high blood pressure Heparin Sodium/Dextrose (Heparin 25,000 Units/250ml In D5w) 25,000 units in 250 mls @ 7.914 mls/hr IV .Q24H [facility]; 12 UNITS/KG/HR PRN Reason: Protocol Last Admin: 06/16/17 06:40 Dose: 16 units/kg/hr, 10.552 mls/hr Ceftriaxone Sodium (Rocephin 1 Gram Ivpb) 1 gm in 100 mls @ 100 mls/hr IVPB DAILY [facility] PRN Reason: Protocol Last Admin: 06/16/17 09:40 Dose: 100 mls/hr Vancomycin HCl (Vancomycin 1gm) 1 gm in 250 mls @ 167 mls/hr IVPB DAILY [facility] PRN Reason: Protocol Last Admin: 06/16/17 09:40 Dose: 167 mls/hr Dextrose (Dextrose 5% In Water 1000 Ml) 1,000 mls @ 75 mls/hr IV .[id number] [facility] Last Admin: 06/16/17 03:32 Dose: 75 mls/hr Isosorbide Mononitrate (Imdur) 60 mg PO DAILY [facility] Last Admin: 06/16/17 09:38 Dose: 60 mg Methylprednisolone (Solu-Medrol) 40 mg IVP Q12 [facility] Last Admin: 06/16/17 09:39 Dose: 40 mg Metoprolol Tartrate (Lopressor) 25 mg PO BID [facility] Last Admin: 06/16/17 09:38 Dose: 25 mg Mupirocin (Bactroban Ointment) 0 gm TOP BID [facility] Last Admin: 06/15/17 18:26 Dose: 1 applic Pantoprazole Sodium (Protonix Susp) 40 mg GT 0600 [facility] Last Admin: 06/16/17 05:17 Dose: 40 mg - Labs Labs: 06/16/17 05:45 06/16/17 05:45 PT 14.7 Seconds (9.9-11.8) H 06/13/17 17:33 INR 1.36 (0.93-1.08) H 06/13/17 17:33 APTT 57.4 Seconds (23.7-30.8) H 06/16/17 05:45 - Constitutional Appears: No Acute Distress - Head Exam Head Exam: ATRAUMATIC, NORMAL INSPECTION, NORMOCEPHALIC - Eye Exam Eye Exam: EOMI, Normal appearance, PERRL Pupil Exam: NORMAL ACCOMODATION, PERRL - ENT Exam ENT Exam: Mucous Membranes Moist, Normal Exam - Respiratory Exam Respiratory Exam: Rales, NORMAL BREATHING PATTERN - Cardiovascular Exam Cardiovascular Exam: REGULAR RHYTHM, +S1, +S2. absent: Murmur - GI/Abdominal Exam GI & Abdominal Exam: Soft, Normal Bowel Sounds. absent: Tenderness - Neurological Exam Neurological Exam: Alert, Awake, CN II-XII Intact, Normal Gait, Oriented x3 - Psychiatric Exam Psychiatric exam: Normal Affect, Normal Mood - Skin Skin Exam: Dry, Intact, Normal Color, Warm Assessment and Plan - Assessment and Plan (Free Text) Assessment: 87 M with PMHx of COPD, CHF (30 > 17% ), Paget's disease, and HTN who presented with AMS and hypercapnic respiratory failure secondary to CHF exacerbation vs. COPD exacerbation vs. electrolyte abnormality vs. CVA vs NSTEMI. Pt is s/p extubation, AAOx3, following commands and mentating well. Pt is on Vancomycin and Rocephin for b/l le cellulitis growing +MRSA. 1) Acute Hypercapnic Respiratory Failure -Resolved, hx COPD -Solumedrol 40mg IV Q12H -Nebulizer tx Q6H -Nebulizer tx Q2H prn -Satting well on 02 NC 2) Altered Mental Status, r/o infectious, neurological etiology - resolved -Head CT: small hypodense lacunar infarct within the left cerebellar lobe considered to be subacute -UDS + benzo -MRI showing chronic microvascular changes, MRA -EEG completed, f/u read -Blood cx showing no growth x 24 hours, urine cx no growth -Wound cx +MRSA -Continue Vancomycin and Rocephin -ID consulted, f/u recommendations -Neurology consult, appreciate recs -Continue ASA, plavix, Lipitor 3) NSTEMI -Troponins peaked downtrending -Heparin drip, fu ptt -Continue ASA, plavix, imdur -Cardiology on consult, f/u recommendations 4) Congestive Heart Failure (Systolic) -lasix for fluid overload -Continue home PO meds -Strict I&O's -Daily weights -Cardiology consult, appreciate recs 5) Acute Kidney Injury -renal fcn improving - monitor I&Os -Nephrology on consult, f/u recommendations 6) Hypertension -Lopressor 5mg Q8H -Hydralazine 10mg Q6H 7) Hyperkalemia -resolved -Continue to monitor 8) GI/DVT ppx -Protonix -Heparin drip Seen Reviewed and discussed with attending <Stephanie Julien - Last Filed: 06/17/17 10:27> Objective - Vital Signs/Intake and Output Vital Signs (last 24 hours): Temp Pulse Resp BP Pulse Ox 97.5 F L 70 12 138/90 100 06/16/17 16:00 06/17/17 09:46 06/17/17 05:10 06/17/17 09:46 06/17/17 05:10 Intake and Output: 06/17/17 06/17/17 06:59 18:59 Intake Total 250 Balance 250 - Medications Medications: Current Medications Acetaminophen (Tylenol 325mg Tab) 650 mg PO Q6H PRN PRN Reason: Pain, moderate (4-7) Last Admin: 06/15/17 20:01 Dose: 650 mg Albuterol/Ipratropium (Duoneb 3 Mg/0.5 Mg (3 Ml) Ud) 3 ml IH [id number] [facility] Last Admin: 06/17/17 07:57 Dose: 3 ml Albuterol/Ipratropium (Duoneb 3 Mg/0.5 Mg (3 Ml) Ud) 3 ml IH Q2H PRN PRN Reason: Shortness of Breath Aspirin (Ecotrin) 81 mg PO DAILY [facility] Last Admin: 06/17/17 09:46 Dose: 81 mg Atorvastatin Calcium (Lipitor) 10 mg PO DAILY [facility] Last Admin: 06/17/17 09:46 Dose: 10 mg Clopidogrel Bisulfate (Plavix) 75 mg PO DAILY [facility] Last Admin: 06/17/17 09:46 Dose: 75 mg Hydralazine HCl (Apresoline) 10 mg IVP Q6 PRN PRN Reason: high blood pressure Ceftriaxone Sodium (Rocephin 1 Gram Ivpb) 1 gm in 100 mls @ 100 mls/hr IVPB DAILY [facility] PRN Reason: Protocol Last Admin: 06/17/17 09:47 Dose: 100 mls/hr Vancomycin HCl (Vancomycin 1gm) 1 gm in 250 mls @ 167 mls/hr IVPB DAILY [facility] PRN Reason: Protocol Last Admin: 06/17/17 09:47 Dose: 167 mls/hr Dextrose (Dextrose 5% In Water 1000 Ml) 1,000 mls @ 75 mls/hr IV .[id number] [facility] Last Admin: 06/17/17 09:52 Dose: 75 mls/hr Heparin Sodium/Dextrose (Heparin 25,000 Units/250ml In D5w) 25,000 units in 250 mls @ 12.084 mls/hr IV .[id number] PRN; Protocol; 18 UNITS/KG/HR PRN Reason: ADJUST RATE PER PROTOCOL Last Admin: 06/17/17 04:39 Dose: 15 units/kg/hr, 10.07 mls/hr Isosorbide Mononitrate (Imdur) 60 mg PO DAILY [facility] Last Admin: 06/17/17 09:46 Dose: 60 mg Methylprednisolone (Solu-Medrol) 40 mg IVP Q12 [facility] Last Admin: 06/17/17 09:46 Dose: 40 mg Metoprolol Tartrate (Lopressor) 25 mg PO BID [facility] Last Admin: 06/17/17 09:46 Dose: 25 mg Mupirocin (Bactroban Ointment) 0 gm TOP BID [facility] Last Admin: 06/17/17 09:53 Dose: 1 applic Pantoprazole Sodium (Protonix Susp) 40 mg GT 0600 [facility] Last Admin: 06/17/17 06:19 Dose: 40 mg - Labs Labs: 06/17/17 05:15 06/17/17 05:15 PT 14.7 Seconds (9.9-11.8) H 06/13/17 17:33 INR 1.36 (0.93-1.08) H 06/13/17 17:33 APTT 76.0 Seconds (23.7-30.8) H* 06/17/17 05:15 Attending/Attestation - Attestation I have personally seen and examined this patient.: Yes I have fully participated in the care of the patient.: Yes I have reviewed all pertinent clinical information, including history, physical exam and plan: Yes Notes (Text): I have seen and examined the patient at bedside. Agree with the above note with the following additions/ exceptions: Briefly this is 87 year old male with history of COPD, CHF last known EF of 30-35% in 08/2016, Paget's disease, HTN who presented with AMS and found to have hypercapnic respiratory failure secondary to COPD exacerbation vs. electrolyte abnormality vs. CVA. Patient got extubated. He is awake , alert and oriented x3. There are no focal deficits. MRI brain showed chronic changes. EEG result pending. He is on NC. Remains on solumedrol taper. He has chronic leg ulceration and bilateral infiltrates on CXR. Continue vancomycin and rocephin. For NSTEMI, he remains on asa, plavix, imdur and heparin drip. JASWINDER is improving. Nephro on board. Upon discharge patient will follow up with Dr Ferrari. Dr Stephanie Julien
--- NOTE | 2017-06-16 12:47 | CP.PCM.PN ---
Subjective - Date & Time of Evaluation Date of Evaluation: 06/16/17 Time of Evaluation: 12:43 - Subjective Subjective: seen and examined feels ok Objective - Vital Signs/Intake and Output Vital Signs (last 24 hours): Temp Pulse Resp BP Pulse Ox 97.9 F 72 17 128/71 79 L 06/16/17 12:00 06/16/17 12:30 06/16/17 12:30 06/16/17 12:01 06/16/17 12:30 Intake and Output: 06/16/17 06/16/17 06:59 18:59 Intake Total 250 Balance 250 - Medications Medications: Current Medications Acetaminophen (Tylenol 325mg Tab) 650 mg PO Q6H PRN PRN Reason: Pain, moderate (4-7) Last Admin: 06/15/17 20:01 Dose: 650 mg Albuterol/Ipratropium (Duoneb 3 Mg/0.5 Mg (3 Ml) Ud) 3 ml IH [id number] [facility] Last Admin: 06/16/17 07:53 Dose: 3 ml Albuterol/Ipratropium (Duoneb 3 Mg/0.5 Mg (3 Ml) Ud) 3 ml IH Q2H PRN PRN Reason: Shortness of Breath Aspirin (Ecotrin) 81 mg PO DAILY [facility] Last Admin: 06/16/17 09:38 Dose: 81 mg Atorvastatin Calcium (Lipitor) 10 mg PO DAILY [facility] Last Admin: 06/16/17 09:38 Dose: 10 mg Clopidogrel Bisulfate (Plavix) 75 mg PO DAILY [facility] Last Admin: 06/16/17 09:38 Dose: 75 mg Hydralazine HCl (Apresoline) 10 mg IVP Q6 PRN PRN Reason: high blood pressure Heparin Sodium/Dextrose (Heparin 25,000 Units/250ml In D5w) 25,000 units in 250 mls @ 7.914 mls/hr IV .Q24H [facility]; 12 UNITS/KG/HR PRN Reason: Protocol Last Admin: 06/16/17 06:40 Dose: 16 units/kg/hr, 10.552 mls/hr Ceftriaxone Sodium (Rocephin 1 Gram Ivpb) 1 gm in 100 mls @ 100 mls/hr IVPB DAILY [facility] PRN Reason: Protocol Last Admin: 06/16/17 09:40 Dose: 100 mls/hr Vancomycin HCl (Vancomycin 1gm) 1 gm in 250 mls @ 167 mls/hr IVPB DAILY [facility] PRN Reason: Protocol Last Admin: 06/16/17 09:40 Dose: 167 mls/hr Dextrose (Dextrose 5% In Water 1000 Ml) 1,000 mls @ 75 mls/hr IV .[id number] [facility] Last Admin: 06/16/17 03:32 Dose: 75 mls/hr Isosorbide Mononitrate (Imdur) 60 mg PO DAILY [facility] Last Admin: 06/16/17 09:38 Dose: 60 mg Methylprednisolone (Solu-Medrol) 40 mg IVP Q12 [facility] Last Admin: 06/16/17 09:39 Dose: 40 mg Metoprolol Tartrate (Lopressor) 25 mg PO BID [facility] Last Admin: 06/16/17 09:38 Dose: 25 mg Mupirocin (Bactroban Ointment) 0 gm TOP BID [facility] Last Admin: 06/15/17 18:26 Dose: 1 applic Pantoprazole Sodium (Protonix Susp) 40 mg GT 0600 [facility] Last Admin: 06/16/17 05:17 Dose: 40 mg - Labs Labs: 06/16/17 05:45 06/16/17 05:45 PT 14.7 Seconds (9.9-11.8) H 06/13/17 17:33 INR 1.36 (0.93-1.08) H 06/13/17 17:33 APTT 57.4 Seconds (23.7-30.8) H 06/16/17 05:45 - Constitutional Appears: Non-toxic - Head Exam Head Exam: ATRAUMATIC - Eye Exam Eye Exam: Normal appearance - ENT Exam ENT Exam: Normal Exam - Neck Exam Neck Exam: Normal Inspection - Respiratory Exam Respiratory Exam: NORMAL BREATHING PATTERN Additional comments: +s1+s2 - Cardiovascular Exam Cardiovascular Exam: +S1, +S2 - GI/Abdominal Exam GI & Abdominal Exam: Normal Bowel Sounds - Extremities Exam Additional comments: 1+ edema - Neurological Exam Additional comments: follows commands - Psychiatric Exam Psychiatric exam: Normal Affect - Skin Skin Exam: Normal Color Assessment and Plan - Assessment and Plan (Free Text) Assessment: Assessment: Critical Acute Hypercapnic respi failure. now with post-hypercapnic metabolic alkalosis Acute Kidney Injury (N17.9) Hypertensive Chronic Kidney Disease (I12.9) Chronic Kidney Disease (N18.9) Stage 3 with ? mg proteinuria (R80.9) possibly due to HTN/vasc disease HTN (I12.9), pulmonary fibrosis, chronic systolic CHF, bladder tumor, b/l kidney cysts Altered mental status NSTEMI Plan Cr unchanged UA suggests proteinuria - not sure how much was not sent w/ cr - reordered UPCR bp acceptable f/u serologic studies C3, C4, ANCA (MPO and MS-3)
--- NOTE | 2017-06-16 14:18 | RAD ---
HISTORY: f/u COMPARISON: Comparison chest 06/15/2017 FINDINGS: LUNGS: Interval removal ETT and NGT. Mild central pulmonary vascular congestive changes with areas of atelectasis right mid to lower lung field and what appear to represent some alveolar-type infiltrates in the left mid to lower lung field and probably right lung base as well. PLEURA: No significant pleural effusion identified, no pneumothorax apparent. CARDIOVASCULAR: Marked cardiomegaly. OSSEOUS STRUCTURES: No significant abnormalities. VISUALIZED UPPER ABDOMEN: Normal. OTHER FINDINGS: None. IMPRESSION: Interval removal ETT and NGT. Mild central pulmonary vascular congestive changes with areas of atelectasis right mid to lower lung field and what appear to represent some alveolar-type infiltrates in the left mid to lower lung field and probably right lung base as well.
[2017-06-16] MEDS ORDERED: Heparin 25,000units in D5W 25,000 UNITS/250 ML BAG IV SCH (15:06)
[2017-06-16] MEDS: Heparin 25,000units in D5W /250 ML BAG IV PRN (19:00)
--- NOTE | 2017-06-16 19:07 | CP.PCM.PN ---
Subjective - Date & Time of Evaluation Date of Evaluation: 06/16/17 Time of Evaluation: 17:00 - Subjective Subjective: Infectious Disease Follow Up: June 16, 2017 87 yo male brought in for lethargy and AMS. The patient has an extensive medical history that includes COPD, CHF last known EF of 30-35% in 08/2016, HTN , Paget's disease and PAD. The patient required intubation and ventilation once arriving in [facility]. He has been extubated now. Extubated yesterday morning and feels better. He is more awake and alert today. Objective - Vital Signs/Intake and Output Vital Signs (last 24 hours): Temp Pulse Resp BP Pulse Ox 97.5 F L 72 13 120/46 L 97 06/16/17 16:00 06/16/17 17:22 06/16/17 16:20 06/16/17 17:22 06/16/17 16:20 Intake and Output: 06/16/17 06/17/17 18:59 06:59 Intake Total 2214 Output Total 800 Balance 1414 - Medications Medications: Current Medications Acetaminophen (Tylenol 325mg Tab) 650 mg PO Q6H PRN PRN Reason: Pain, moderate (4-7) Last Admin: 06/15/17 20:01 Dose: 650 mg Albuterol/Ipratropium (Duoneb 3 Mg/0.5 Mg (3 Ml) Ud) 3 ml IH [id number] [facility] Last Admin: 06/16/17 14:27 Dose: 3 ml Albuterol/Ipratropium (Duoneb 3 Mg/0.5 Mg (3 Ml) Ud) 3 ml IH Q2H PRN PRN Reason: Shortness of Breath Aspirin (Ecotrin) 81 mg PO DAILY [facility] Last Admin: 06/16/17 09:38 Dose: 81 mg Atorvastatin Calcium (Lipitor) 10 mg PO DAILY [facility] Last Admin: 06/16/17 09:38 Dose: 10 mg Clopidogrel Bisulfate (Plavix) 75 mg PO DAILY [facility] Last Admin: 06/16/17 09:38 Dose: 75 mg Hydralazine HCl (Apresoline) 10 mg IVP Q6 PRN PRN Reason: high blood pressure Ceftriaxone Sodium (Rocephin 1 Gram Ivpb) 1 gm in 100 mls @ 100 mls/hr IVPB DAILY [facility] PRN Reason: Protocol Last Admin: 06/16/17 09:40 Dose: 100 mls/hr Vancomycin HCl (Vancomycin 1gm) 1 gm in 250 mls @ 167 mls/hr IVPB DAILY [facility] PRN Reason: Protocol Last Admin: 06/16/17 09:40 Dose: 167 mls/hr Dextrose (Dextrose 5% In Water 1000 Ml) 1,000 mls @ 75 mls/hr IV .[id number] [facility] Last Admin: 06/16/17 03:32 Dose: 75 mls/hr Heparin Sodium/Dextrose (Heparin 25,000 Units/250ml In D5w) 25,000 units in 250 mls @ 12.084 mls/hr IV .[id number] PRN; Protocol; 18 UNITS/KG/HR PRN Reason: ADJUST RATE PER PROTOCOL Isosorbide Mononitrate (Imdur) 60 mg PO DAILY [facility] Last Admin: 06/16/17 09:38 Dose: 60 mg Methylprednisolone (Solu-Medrol) 40 mg IVP Q12 [facility] Last Admin: 06/16/17 09:39 Dose: 40 mg Metoprolol Tartrate (Lopressor) 25 mg PO BID [facility] Last Admin: 06/16/17 17:22 Dose: 25 mg Mupirocin (Bactroban Ointment) 0 gm TOP BID [facility] Last Admin: 06/16/17 17:23 Dose: 1 applic Pantoprazole Sodium (Protonix Susp) 40 mg GT 0600 [facility] Last Admin: 06/16/17 05:17 Dose: 40 mg - Labs Labs: 06/16/17 05:45 06/16/17 05:45 PT 14.7 Seconds (9.9-11.8) H 06/13/17 17:33 INR 1.36 (0.93-1.08) H 06/13/17 17:33 APTT 35.7 Seconds (23.7-30.8) H 06/16/17 12:10 - Constitutional Appears: Non-toxic, No Acute Distress, Chronically Ill - Head Exam Head Exam: ATRAUMATIC, NORMOCEPHALIC - Eye Exam Eye Exam: EOMI, PERRL Pupil Exam: NORMAL ACCOMODATION, PERRL - ENT Exam ENT Exam: Mucous Membranes Moist, Normal External Ear Exam, TM's Normal Bilaterally - Neck Exam Neck Exam: Full ROM, Normal Inspection - Respiratory Exam Respiratory Exam: Clear to Ausculation Bilateral, NORMAL BREATHING PATTERN. absent: Rales, Rhonchi, Wheezes - Cardiovascular Exam Cardiovascular Exam: REGULAR RHYTHM, RRR, +S1, +S2 - GI/Abdominal Exam GI & Abdominal Exam: Soft, Normal Bowel Sounds. absent: Distended, Tenderness - Extremities Exam Additional comments: +Heel protectors +Venous stasis skin changes B/L LE wrapped with curlex cellulitis of the bilateral lower extremities and chronic venous stasis. open ulcerations on the bilateral legs anteriorly. wounds are malodorous. - Neurological Exam Neurological Exam: Alert, Awake, CN II-XII Intact - Psychiatric Exam Psychiatric exam: Normal Affect, Normal Mood Assessment and Plan - Assessment and Plan (Free Text) Assessment: 87 yo male with AMS and lethargy. Etiology unclear. Broad spectrum coverage for now with Rocephin and Vancomycin treatment. Ignacio cultures. Imaging studies. Patient was intubated and ventilated. Extubated yesterday. Remains in ICU currently. He is more awake and alert now. Overall improving. Supportive care. Obtain procalcitonin... which was 0.48 which is normal. Follow up WBC and fever trend. Urine drug screen positive for Benzodiazepine. Respiratory failure. Renal insufficiency (acute or chronic?). Patient has a history of hypertension and systolic congestive heart failure. Thank you for allowing me to participate in the care of the patient, we will follow with you.
[2017-06-17 00:09] LABS: ARTERIAL BLOOD GAS HCO3 27.3 mmol/L (21-28)
[2017-06-17 00:11] LABS: ARTERIAL BLOOD HGB O2 SAT 96.5 % (95.0-98.0); CARBOXYHEMOGLOBIN 1.8 % (0.5-1.5)
[2017-06-17 00:12] LABS: METHEMOGLOBIN 0.7 % (0.0-3.0)
[2017-06-17 00:13] LABS: ARTERIAL BLOOD GAS PH 7.28 (7.35-7.45)
[2017-06-17] MEDS: Albuterol-Ipratrop 3 mg / 0.5 (3 ml) UD IH SCH ×4 (02:40→20:11)
[2017-06-17] MEDS: Heparin 25,000units in D5W /250 ML BAG IV PRN (04:39)
[2017-06-17 05:16] LABS: CREATININE, RANDOM URINE 83 mg/dL (20-370)
[2017-06-17 05:53] LABS: ARTERIAL BLOOD GAS HCO3 29.7 mmol/L (21-28); ARTERIAL BLOOD GAS O2 CAPACITY 16.2 mL/dl (16-24); ARTERIAL BLOOD GAS O2 CONTENT 16.1 ML/dl (15-23); ARTERIAL BLOOD GAS PH 7.31 (7.35-7.45); ARTERIAL BLOOD HGB O2 SAT 95.6 % (95.0-98.0); CARBOXYHEMOGLOBIN 2.2 % (0.5-1.5); HHB 0.8 % (0-5); METHEMOGLOBIN 1.3 % (0.0-3.0)
[2017-06-17 06:03] LABS: GRAN % 93.5 % (50.0-68.0); HEMATOCRIT 42.5 % (42.0-52.0); LYMPH # 0.3 (1.2-3.4); LYMPH % 3.4 % (22.0-35.0); MEAN CELL VOLUME 92.6 fl (80.0-105.0); MEAN CORPUSCULAR HEMOGLOBIN 28.8 pg (25.0-35.0); MEAN CORPUSCULAR HGB CONC 31.1 g/dl (31.0-37.0); MEAN PLATELET VOLUME 10.5 fl (7.0-11.0); MONO # 0.3 (0.1-0.6); MONO % 3.1 % (1.0-6.0); RED CELL DISTRIBUTION WIDTH 17.3 % (11.5-14.5); WHITE BLOOD COUNT 9.6 10^3/ul (4.5-11.0)
[2017-06-17 06:11] LABS: ALB/GLOB RATIO 0.9 (1.1-1.8); BILIRUBIN,TOTAL 0.5 mg/dL (0.2-1.3); CALCIUM 7.4 mg/dL (8.4-10.5); MAGNESIUM 1.9 mg/dL (1.7-2.2); PHOSPHOROUS 4.4 mg/dL (2.5-4.5); POTASSIUM 4.5 mmol/L (3.6-5.0)
[2017-06-17] MEDS: Pantoprazole 40 mg Susp UD GT SCH (06:19)
--- NOTE | 2017-06-17 07:36 | CP.PCM.PN ---
Subjective - Date & Time of Evaluation Date of Evaluation: 06/17/17 Time of Evaluation: 07:00 - Subjective Subjective: Stable on ICU. No CP or SOB V/S noted. RSR Lungs: scattered rhonchi Cor.: S1S2, WAGNER Abd.: soft Ext: edema, bandaged Neuro.: sedated I/O recorded as 2664/800 Labs and ABGs noted: PTT= 76, Cr.= 1.4 BC x2 NG at 3 days. Wound cultures positive: Kleb., Staph.a. Echo noted: Sev. LVD, mod/sev AI, mild , mod/sev. MR, mld/mod PH ECG 06/15 : S. Ignacio., LVH, STTW changes CXR today: pending. About the same to me. MRI Brain, MRA Head: noted. No Stroke seen. Objective - Vital Signs/Intake and Output Vital Signs (last 24 hours): Temp Pulse Resp BP Pulse Ox 97.5 F L 63 12 158/90 H 100 06/16/17 16:00 06/17/17 05:10 06/17/17 05:10 06/17/17 05:00 06/17/17 05:10 Intake and Output: 06/17/17 06/17/17 06:59 18:59 Intake Total 250 Balance 250 - Medications Medications: Current Medications Acetaminophen (Tylenol 325mg Tab) 650 mg PO Q6H PRN PRN Reason: Pain, moderate (4-7) Last Admin: 06/15/17 20:01 Dose: 650 mg Albuterol/Ipratropium (Duoneb 3 Mg/0.5 Mg (3 Ml) Ud) 3 ml IH [id number] [facility] Last Admin: 06/17/17 02:40 Dose: 3 ml Albuterol/Ipratropium (Duoneb 3 Mg/0.5 Mg (3 Ml) Ud) 3 ml IH Q2H PRN PRN Reason: Shortness of Breath Aspirin (Ecotrin) 81 mg PO DAILY [facility] Last Admin: 06/16/17 09:38 Dose: 81 mg Atorvastatin Calcium (Lipitor) 10 mg PO DAILY [facility] Last Admin: 06/16/17 09:38 Dose: 10 mg Clopidogrel Bisulfate (Plavix) 75 mg PO DAILY [facility] Last Admin: 06/16/17 09:38 Dose: 75 mg Hydralazine HCl (Apresoline) 10 mg IVP Q6 PRN PRN Reason: high blood pressure Ceftriaxone Sodium (Rocephin 1 Gram Ivpb) 1 gm in 100 mls @ 100 mls/hr IVPB DAILY [facility] PRN Reason: Protocol Last Admin: 06/16/17 09:40 Dose: 100 mls/hr Vancomycin HCl (Vancomycin 1gm) 1 gm in 250 mls @ 167 mls/hr IVPB DAILY [facility] PRN Reason: Protocol Last Admin: 06/16/17 09:40 Dose: 167 mls/hr Dextrose (Dextrose 5% In Water 1000 Ml) 1,000 mls @ 75 mls/hr IV .[id number] [facility] Last Admin: 06/17/17 04:38 Dose: 75 mls/hr Heparin Sodium/Dextrose (Heparin 25,000 Units/250ml In D5w) 25,000 units in 250 mls @ 12.084 mls/hr IV .[id number] PRN; Protocol; 18 UNITS/KG/HR PRN Reason: ADJUST RATE PER PROTOCOL Last Admin: 06/17/17 04:39 Dose: 15 units/kg/hr, 10.07 mls/hr Isosorbide Mononitrate (Imdur) 60 mg PO DAILY [facility] Last Admin: 06/16/17 09:38 Dose: 60 mg Methylprednisolone (Solu-Medrol) 40 mg IVP Q12 [facility] Last Admin: 06/16/17 21:10 Dose: 40 mg Metoprolol Tartrate (Lopressor) 25 mg PO BID [facility] Last Admin: 06/16/17 17:22 Dose: 25 mg Mupirocin (Bactroban Ointment) 0 gm TOP BID [facility] Last Admin: 06/16/17 17:23 Dose: 1 applic Pantoprazole Sodium (Protonix Susp) 40 mg GT 0600 [facility] Last Admin: 06/17/17 06:19 Dose: 40 mg - Labs Labs: 06/17/17 05:15 06/17/17 05:15 PT 14.7 Seconds (9.9-11.8) H 06/13/17 17:33 INR 1.36 (0.93-1.08) H 06/13/17 17:33 APTT 76.0 Seconds (23.7-30.8) H* 06/17/17 05:15 Assessment and Plan - Assessment and Plan (Free Text) Assessment: AMS/Lethargy/Respiatory Insufficiency + trops c/w acute NC Abnormal CXR Cellulitis Acute on chronic kidney disease R/O pneumonia/ ALFREDO density on CXR R/O stroke CAD/NSEMI/LVD Valvlar Heart Disease: Mod/Sev. AI, Mild , Mild to moderate MR and TR, Mild to moderate PH CHF COPD/Bronchitis/Smoker PAD Paget's Disease Bladder cancer Hyperkalemia and Hypernatremia, resolving Plan: As per Intensivists, Pulmonary, ID and Neuro. Continue PO metoprolol AB: cellulitis, R/O pneumonia Monitor: I/O, labs, PTT's, sats, cultures, etc. OOB to chair as tolerated.
[2017-06-17] MEDS: MethylPREDNISolone 40 mg Vial IVP SCH ×2 (09:46→21:43)
[2017-06-17] MEDS: Vancomycin 1gm in NS 250ml 1 GM/250 ML BAG IVPB SCH (09:47)
[2017-06-17] MEDS: cefTRIAXone 1 gm 1 GM/100 ML BAG IVPB SCH (09:47)
--- NOTE | 2017-06-17 10:21 | PN ---
DATE: 06/17/2017 PULMONARY PROGRESS NOTE SUBJECTIVE: The patient was seen and examined in the intensive care unit. He remains extubated, on nasal cannula. His oxygen saturations are ranging between 96% and 98%. He receiving inhalation therapy with DuoNeb and he is still on intravenous steroids as well as Rocephin and vancomycin. PHYSICAL EXAMINATION VITAL SIGNS: His temperature is 97.5, pulse 64, respirations 20, pulse oximetry is 100 on nasal cannula and blood pressure 150/90. HEAD, EARS, NOSE AND THROAT: Within normal limits. NECK: Supple with no jugular vein distentions. CHEST: Symmetrical. HEART: S1 and S2. No S3. Regular. LUNGS: Scattered coarse rhonchi. No wheezing. GASTROINTESTINAL: Soft and nontender with no organomegaly. GENITOURINARY: No costovertebral angle tenderness. EXTREMITIES: Trace pedal edema. No cyanosis. SKIN: No skin rashes. NEUROLOGIC: Limited at the present time. LABORATORY DATA: I reviewed his arterial blood gases. PH of 7.31, PCO2 of 59 and PO2 of 107. IMAGING STUDIES: A chest x-ray was done and reviewed by me. Bony cage appears normal. Costophrenic sinuses are free and clear. Cardiac silhouette is moderately enlarged. There is some cephalization of blood vessels. There is mild haziness in the left perihilar area, not enough to call it an infiltrate. ASSESSMENT: 1. Status post acute respiratory failure. 2. Chronic obstructive pulmonary disease. 3. Sepsis syndrome. 4. Subacute cerebrovascular accident. 5. Resolving pneumonia. 6. Myocardial infarction. PLAN: The patient's condition continues to improve slowly. I reviewed this morning's chest x-ray. There is no official report yet, but it reveals only small area of perihilar density on the left side, not enough to call it pneumonia, so overall there is an improvement. His WBC is 9.6, his oxygen saturation is improving, however, when he talks and moves, the oxygen saturation decreases rapidly. This is a sign of his moderately severe chronic obstructive pulmonary disease. He is on antibiotics per infectious disease. I discussed his condition with the wine manager. We will continue with the above plan. Richard Ordonez MD
--- NOTE | 2017-06-17 10:36 | RAD ---
HISTORY: f/u COMPARISON: No prior. FINDINGS: LUNGS: Improved pulmonary vascular congestive changes with decreased areas of alveolar-type infiltrates in the left mid to lower lung field and right lower lung. Small bilateral effusions are present. PLEURA: As above. No pneumothorax apparent. CARDIOVASCULAR: Cardiomegaly. OSSEOUS STRUCTURES: No significant abnormalities. VISUALIZED UPPER ABDOMEN: Normal. OTHER FINDINGS: None. IMPRESSION: Improved pulmonary vascular congestive changes with decreased areas of alveolar-type infiltrates in the left mid to lower lung field and right lower lung. There are also small bilateral effusions
--- NOTE | 2017-06-17 13:41 | CP.PCM.PN ---
<Andres Mckeon - Last Filed: 06/17/17 13:37> Subjective - Date & Time of Evaluation Date of Evaluation: 06/17/17 Time of Evaluation: 13:37 - Subjective Subjective: 87 yo male patient with PMHx of Paget's disease was seen at bedside this Am concerning ulcerations to bilateral legs. Dressing to bilateral legs appear cdi. Patient is resting comfortably with his son by bedside and is able to communicate. Patient complains of mild pain to the legs bilaterally. Patient denies of N/V/F/C or SOB today Objective - Vital Signs/Intake and Output Vital Signs (last 24 hours): Temp Pulse Resp BP Pulse Ox 97.7 F 69 52 H 122/61 68 L 06/17/17 08:00 06/17/17 13:07 06/17/17 13:07 06/17/17 13:00 06/17/17 13:00 Intake and Output: 06/17/17 06/17/17 06:59 18:59 Intake Total 250 Balance 250 - Medications Medications: Current Medications Acetaminophen (Tylenol 325mg Tab) 650 mg PO Q6H PRN PRN Reason: Pain, moderate (4-7) Last Admin: 06/15/17 20:01 Dose: 650 mg Albuterol/Ipratropium (Duoneb 3 Mg/0.5 Mg (3 Ml) Ud) 3 ml IH [id number] [facility] Last Admin: 06/17/17 07:57 Dose: 3 ml Albuterol/Ipratropium (Duoneb 3 Mg/0.5 Mg (3 Ml) Ud) 3 ml IH Q2H PRN PRN Reason: Shortness of Breath Aspirin (Ecotrin) 81 mg PO DAILY [facility] Last Admin: 06/17/17 09:46 Dose: 81 mg Atorvastatin Calcium (Lipitor) 10 mg PO DAILY [facility] Last Admin: 06/17/17 09:46 Dose: 10 mg Clopidogrel Bisulfate (Plavix) 75 mg PO DAILY [facility] Last Admin: 06/17/17 09:46 Dose: 75 mg Hydralazine HCl (Apresoline) 10 mg IVP Q6 PRN PRN Reason: high blood pressure Ceftriaxone Sodium (Rocephin 1 Gram Ivpb) 1 gm in 100 mls @ 100 mls/hr IVPB DAILY [facility] PRN Reason: Protocol Last Admin: 06/17/17 09:47 Dose: 100 mls/hr Vancomycin HCl (Vancomycin 1gm) 1 gm in 250 mls @ 167 mls/hr IVPB DAILY [facility] PRN Reason: Protocol Last Admin: 06/17/17 09:47 Dose: 167 mls/hr Dextrose (Dextrose 5% In Water 1000 Ml) 1,000 mls @ 75 mls/hr IV .[id number] [facility] Last Admin: 06/17/17 09:52 Dose: 75 mls/hr Heparin Sodium/Dextrose (Heparin 25,000 Units/250ml In D5w) 25,000 units in 250 mls @ 12.084 mls/hr IV .[id number] PRN; Protocol; 18 UNITS/KG/HR PRN Reason: ADJUST RATE PER PROTOCOL Last Admin: 06/17/17 04:39 Dose: 15 units/kg/hr, 10.07 mls/hr Isosorbide Mononitrate (Imdur) 60 mg PO DAILY [facility] Last Admin: 06/17/17 09:46 Dose: 60 mg Methylprednisolone (Solu-Medrol) 40 mg IVP Q12 [facility] Last Admin: 06/17/17 09:46 Dose: 40 mg Metoprolol Tartrate (Lopressor) 25 mg PO BID [facility] Last Admin: 06/17/17 09:46 Dose: 25 mg Mupirocin (Bactroban Ointment) 0 gm TOP BID [facility] Last Admin: 06/17/17 09:53 Dose: 1 applic Pantoprazole Sodium (Protonix Susp) 40 mg GT 0600 [facility] Last Admin: 06/17/17 06:19 Dose: 40 mg - Labs Labs: 06/17/17 05:15 06/17/17 05:15 PT 14.7 Seconds (9.9-11.8) H 06/13/17 17:33 INR 1.36 (0.93-1.08) H 06/13/17 17:33 APTT 69.5 Seconds (23.7-30.8) H 06/17/17 11:55 - Constitutional Appears: Well, Non-toxic, No Acute Distress - Head Exam Head Exam: ATRAUMATIC - Extremities Exam Additional comments: Bilateral lower extremity exam DERM: Open ulcerations to anterior aspect of bilateral legs measuring 18cm x 7cm x 0.2cm with mix of fibrotic and granular base. Moderate sero-sanguinous drainage is noted. Mal-odor is present. No purulent discharge noted. Erythema noted around the wound marings >2cm VASC: Palpable DP and PT noted 1/4 bilaterally. EEO OFFICER less than 3 seconds noted to all digits - Neurological Exam Neurological Exam: Alert, Awake - Psychiatric Exam Psychiatric exam: Normal Affect, Normal Mood - Skin Skin Exam: Normal Color Assessment and Plan - Assessment and Plan (Free Text) Assessment: 87 yo male patient presenting with infected ulcerations to anterior aspect of bilateral legs Plan: Patient was seen, evaluated and treated with all questions and concerns addressed labs and vitals reviewed Right leg WCX: E.Coli, Staph. Aureus (Resistant to PCN but Oxa sensitive) Left leg WCX: Klebsella Oxytosa, Staph Aureus Bilateral legs dressed with Bactroban, Telfa, DSD Continue IV Abx per ID Podiatry will continue to follow in-house <Noam Cummings - Last Filed: 06/19/17 11:30> Objective - Vital Signs/Intake and Output Vital Signs (last 24 hours): Temp Pulse Resp BP Pulse Ox 97.8 F 77 17 159/66 H 99 06/18/17 16:00 06/19/17 10:42 06/19/17 04:10 06/19/17 10:42 06/19/17 04:10 - Medications Medications: Current Medications Acetaminophen (Tylenol 325mg Tab) 650 mg PO Q6H PRN PRN Reason: Pain, moderate (4-7) Last Admin: 06/15/17 20:01 Dose: 650 mg Albuterol/Ipratropium (Duoneb 3 Mg/0.5 Mg (3 Ml) Ud) 3 ml IH [id number] [facility] Last Admin: 06/19/17 07:07 Dose: 3 ml Albuterol/Ipratropium (Duoneb 3 Mg/0.5 Mg (3 Ml) Ud) 3 ml IH Q2H PRN PRN Reason: Shortness of Breath Aspirin (Ecotrin) 81 mg PO DAILY [facility] Last Admin: 06/19/17 10:42 Dose: 81 mg Atorvastatin Calcium (Lipitor) 10 mg PO DAILY [facility] Last Admin: 06/19/17 10:42 Dose: 10 mg Clopidogrel Bisulfate (Plavix) 75 mg PO DAILY [facility] Last Admin: 06/19/17 10:42 Dose: 75 mg Furosemide (Lasix) 20 mg PO DAILY [facility] Last Admin: 06/19/17 10:41 Dose: 20 mg Heparin Sodium (Porcine) (Heparin) 5,000 units SC Q12 [facility] PRN Reason: Protocol Hydralazine HCl (Apresoline) 10 mg IVP Q6 PRN PRN Reason: high blood pressure Ceftriaxone Sodium (Rocephin 1 Gram Ivpb) 1 gm in 100 mls @ 100 mls/hr IVPB DAILY [facility] PRN Reason: Protocol Last Admin: 06/19/17 10:43 Dose: 100 mls/hr Vancomycin HCl (Vancomycin 1gm) 1 gm in 250 mls @ 167 mls/hr IVPB DAILY [facility] PRN Reason: Protocol Last Admin: 06/19/17 10:43 Dose: 167 mls/hr Isosorbide Mononitrate (Imdur) 60 mg PO DAILY [facility] Last Admin: 06/19/17 10:42 Dose: 60 mg Methylprednisolone (Solu-Medrol) 30 mg IVP Q12 [facility] Last Admin: 06/18/17 21:44 Dose: 30 mg Metoprolol Tartrate (Lopressor) 25 mg PO BID [facility] Last Admin: 06/19/17 10:42 Dose: 25 mg Mupirocin (Bactroban Ointment) 0 gm TOP BID [facility] Last Admin: 06/19/17 10:45 Dose: 1 applic Pantoprazole Sodium (Protonix Susp) 40 mg GT 0600 [facility] Last Admin: 06/19/17 05:15 Dose: 40 mg - Labs Labs: 06/19/17 05:10 06/19/17 05:10 PT 14.7 Seconds (9.9-11.8) H 06/13/17 17:33 INR 1.36 (0.93-1.08) H 06/13/17 17:33 APTT 26.6 Seconds (23.7-30.8) 06/19/17 05:10 Attending/Attestation - Attestation I have personally seen and examined this patient.: Yes I have fully participated in the care of the patient.: Yes I have reviewed all pertinent clinical information, including history, physical exam and plan: Yes
--- NOTE | 2017-06-17 14:20 | CP.PCM.PN ---
<Bernard Carrington - Last Filed: 06/17/17 14:17> Subjective - Date & Time of Evaluation Date of Evaluation: 06/17/17 Time of Evaluation: 07:30 - Subjective Subjective: IM Progress Note for Hospitalist Service Patient seen and examined at bedside in the ICU. No acute complaints at this time, and no acute events reported overnight. Pt remains AAOx3, 2 days s/p extubation, and still satting well on NC. Pt denies fever/chills, shortness of breath/dyspnea, chest pain, abdominal pains, nausea/emesis, diarrhea/ constipation, focal weakness, or dizziness. Objective - Vital Signs/Intake and Output Vital Signs (last 24 hours): Temp Pulse Resp BP Pulse Ox 97.7 F 69 52 H 122/61 68 L 06/17/17 08:00 06/17/17 13:07 06/17/17 13:07 06/17/17 13:00 06/17/17 13:00 Intake and Output: 06/17/17 06/17/17 06:59 18:59 Intake Total 250 Balance 250 - Medications Medications: Current Medications Acetaminophen (Tylenol 325mg Tab) 650 mg PO Q6H PRN PRN Reason: Pain, moderate (4-7) Last Admin: 06/15/17 20:01 Dose: 650 mg Albuterol/Ipratropium (Duoneb 3 Mg/0.5 Mg (3 Ml) Ud) 3 ml IH [id number] [facility] Last Admin: 06/17/17 13:53 Dose: 3 ml Albuterol/Ipratropium (Duoneb 3 Mg/0.5 Mg (3 Ml) Ud) 3 ml IH Q2H PRN PRN Reason: Shortness of Breath Aspirin (Ecotrin) 81 mg PO DAILY [facility] Last Admin: 06/17/17 09:46 Dose: 81 mg Atorvastatin Calcium (Lipitor) 10 mg PO DAILY [facility] Last Admin: 06/17/17 09:46 Dose: 10 mg Clopidogrel Bisulfate (Plavix) 75 mg PO DAILY [facility] Last Admin: 06/17/17 09:46 Dose: 75 mg Hydralazine HCl (Apresoline) 10 mg IVP Q6 PRN PRN Reason: high blood pressure Ceftriaxone Sodium (Rocephin 1 Gram Ivpb) 1 gm in 100 mls @ 100 mls/hr IVPB DAILY [facility] PRN Reason: Protocol Last Admin: 06/17/17 09:47 Dose: 100 mls/hr Vancomycin HCl (Vancomycin 1gm) 1 gm in 250 mls @ 167 mls/hr IVPB DAILY [facility] PRN Reason: Protocol Last Admin: 06/17/17 09:47 Dose: 167 mls/hr Dextrose (Dextrose 5% In Water 1000 Ml) 1,000 mls @ 75 mls/hr IV .[id number] [facility] Last Admin: 06/17/17 09:52 Dose: 75 mls/hr Heparin Sodium/Dextrose (Heparin 25,000 Units/250ml In D5w) 25,000 units in 250 mls @ 12.084 mls/hr IV .[id number] PRN; Protocol; 18 UNITS/KG/HR PRN Reason: ADJUST RATE PER PROTOCOL Last Admin: 06/17/17 04:39 Dose: 15 units/kg/hr, 10.07 mls/hr Isosorbide Mononitrate (Imdur) 60 mg PO DAILY [facility] Last Admin: 06/17/17 09:46 Dose: 60 mg Methylprednisolone (Solu-Medrol) 40 mg IVP Q12 [facility] Last Admin: 06/17/17 09:46 Dose: 40 mg Metoprolol Tartrate (Lopressor) 25 mg PO BID [facility] Last Admin: 06/17/17 09:46 Dose: 25 mg Mupirocin (Bactroban Ointment) 0 gm TOP BID [facility] Last Admin: 06/17/17 09:53 Dose: 1 applic Pantoprazole Sodium (Protonix Susp) 40 mg GT 0600 [facility] Last Admin: 06/17/17 06:19 Dose: 40 mg - Labs Labs: 06/17/17 05:15 06/17/17 05:15 PT 14.7 Seconds (9.9-11.8) H 06/13/17 17:33 INR 1.36 (0.93-1.08) H 06/13/17 17:33 APTT 69.5 Seconds (23.7-30.8) H 06/17/17 11:55 - Additional Findings Additional findings: - Constitutional Appears: No Acute Distress, Resting comfortably in bed - Head Exam Head Exam: ATRAUMATIC, NORMAL INSPECTION, NORMOCEPHALIC - Eye Exam Eye Exam: EOMI, Normal appearance. Absent: scleral icterus, conjunctival injection Pupil Exam: Absent: Irregular, Unequal - ENT Exam ENT Exam: Mucous Membranes Moist, Normal Exam - Respiratory Exam Respiratory Exam: Decreased breath sounds (mild decreased breath sounds diffusely), Rales (faint rales diffusely, most prominent at bases), Normal Breathing Pattern. Absent: Tachypnea, Wheezing, Ronchi, Gautam Cyanosis, Dyspnea - Cardiovascular Exam Cardiovascular Exam: RRR, +S1, +S2. absent: Murmur, Tachycardia, Bradycardia, JVD - GI/Abdominal Exam GI & Abdominal Exam: Firm (but not rigid, no guarding), Normal Bowel Sounds. absent: Soft, Tenderness, Rigid, Pulsatile Mass - Extremities Exam Extremities Exam: Some discoloration of skin on bilateral LE, ulcerations covered with bandages on bilateral LE between ankles and knees, unable to palpate bilateral dorsalis pedis pulses, no pitting edema in foot or above bandaging - Neurological Exam Neurological Exam: Alert, Awake, Oriented to Self/Location/Year, Following all commands appropriately, moving all extremities spontaneously and on command - Psychiatric Exam Psychiatric exam: Normal Affect, Normal Mood - Skin Skin Exam: Dry, Normal Color, Warm, Ulcerations on bilateral LE (bandaged) between ankles and knees Assessment and Plan - Assessment and Plan (Free Text) Assessment: This is an 87 yo M with PMH of COPD, CHF (30% --> 17% EF), Paget's disease, and HTN who presented with AMS and hypercapnic respiratory failure requiring intubation/mechanical ventilation. Pt is 2 days s/p extubation, AAOx3 , following commands and mentating well. Remains on IV abx for b/l LE cellulitis positive for MRSA. Plan: 1) Acute Hypercapnic Respiratory Failure: Resolved -2/2 CHF exacerbation vs COPD exacerbation vs electrolyte abnormality vs CVA vs NSTEMI/STEMI -2 days s/p extubation, tolerating well -Head CT negative for acute stroke -Hyperkalemic at 6.1 on admission, but otherwise all electrolyes wnl; currently on slightly hypocalcemic -continue Solumedrol 40mg IV Q12H, Nebs Q6H tomer/Q2 prn, as per Pulm -Satting well on O2 NC, maintain SaO2 88-95%, avoid persistently elevated SaO2 to prevent suppression of respiratory drive in COPD pt -Elevated trops on admission, max of 1.16, now downtrending; as per cardio, consistent with acute ID -Continue Metoprolol, Imdur, Statin, ASA, Plavix; continue heparin drip pending decision by Cardio regarding possible stress test -Cardio (Santa), Neuro (Cindi Castro), and Pulm (Jayy) consulted, appreciate all recs 2) Altered Mental Status: Resolved -2/2 Hypercapnic resp failure vs Sepsis from LE cellulitis vs LE ulcers vs CVA vs seizures vs ACS -Head CT: small hypodense lacunar infarct within the left cerebellar lobe, considered to be subacute -UDS (+) benzos, no benzos listed in home medication charting -MRI showing chronic microvascular changes, MRA unremarkable -EEG completed, f/u read -Blood cx showing no growth x 3 days, urine cx no growth -Wound cxs: +MRSA, Right leg WCX: E.Coli, Staph. Aureus (Resistant to PCN but Oxa sensitive); Left leg WCX: Klebsella Oxytosa, Staph Aureus -Continue Vancomycin and Rocephin -ID (Mario) and Podiatry (Iftikhar) consulted, appreciate all recs; Cardio, Neuro, and Pulm also on board -Continue ASA, plavix, Lipitor 3) NSTEMI -Troponins peaked at 1.16, downtrending -Heparin drip, fu ptt; will discuss possible stress test and plans regarding heparin gtt with cardio -Continue ASA, plavix, imdur -Cardio consulted, appreciate all recs 4) Congestive Heart Failure (Systolic) -Continue home meds -Strict I&O's -Daily weights -Cardio consulted, appreciate all recs 5) Acute Kidney Injury: improving -renal fcn improving, baseline Cr per charting 1.1-1.3, currently 1.4 -monitor I&Os -Nephro (Wise) consulted, appreciate all recs 6) Hypertension -continue Lopressor 5mg Q8H, Hydralazine 10mg Q6H PRN 7) Hyperkalemia -resolved -Continue to monitor Dispo: ICU pending transfer to telemetry, on Heparin Drip, 2 days s/p extubation , pending possible stress test and continued IV abx and localized wound care FEN: Heart-healthy diet, D5W 75cc/hr Access: Peripheral IV Consults: Cardio, Pulm, Nephro, Neuro, Podiatry, ID Ppx: Heparin drip covers for DVT, Protonix for GI Patient reviewed and discussed with attending, Dr. Stephanie Julien. <Stephanie Julien - Last Filed: 06/19/17 17:00> Objective - Vital Signs/Intake and Output Vital Signs (last 24 hours): Temp Pulse Resp BP Pulse Ox 98.2 F 70 35 H 152/94 H 96 06/19/17 12:00 06/19/17 14:00 06/19/17 14:00 06/19/17 14:00 06/19/17 14:00 - Medications Medications: Current Medications Acetaminophen (Tylenol 325mg Tab) 650 mg PO Q6H PRN PRN Reason: Pain, moderate (4-7) Last Admin: 06/15/17 20:01 Dose: 650 mg Albuterol/Ipratropium (Duoneb 3 Mg/0.5 Mg (3 Ml) Ud) 3 ml IH [id number] [facility] Last Admin: 06/19/17 13:15 Dose: 3 ml Albuterol/Ipratropium (Duoneb 3 Mg/0.5 Mg (3 Ml) Ud) 3 ml IH Q2H PRN PRN Reason: Shortness of Breath Aspirin (Ecotrin) 81 mg PO DAILY [facility] Last Admin: 06/19/17 10:42 Dose: 81 mg Atorvastatin Calcium (Lipitor) 10 mg PO DAILY [facility] Last Admin: 06/19/17 10:42 Dose: 10 mg Clopidogrel Bisulfate (Plavix) 75 mg PO DAILY [facility] Last Admin: 06/19/17 10:42 Dose: 75 mg Furosemide (Lasix) 40 mg PO DAILY [facility] Heparin Sodium (Porcine) (Heparin) 5,000 units SC Q12 [facility] PRN Reason: Protocol Hydralazine HCl (Apresoline) 10 mg IVP Q6 PRN PRN Reason: high blood pressure Ceftriaxone Sodium (Rocephin 1 Gram Ivpb) 1 gm in 100 mls @ 100 mls/hr IVPB DAILY [facility] PRN Reason: Protocol Last Admin: 06/19/17 10:43 Dose: 100 mls/hr Vancomycin HCl (Vancomycin 1gm) 1 gm in 250 mls @ 167 mls/hr IVPB DAILY [facility] PRN Reason: Protocol Last Admin: 06/19/17 10:43 Dose: 167 mls/hr Isosorbide Mononitrate (Imdur) 60 mg PO DAILY [facility] Last Admin: 06/19/17 10:42 Dose: 60 mg Methylprednisolone (Solu-Medrol) 30 mg IVP Q12 [facility] Last Admin: 06/18/17 21:44 Dose: 30 mg Metoprolol Tartrate (Lopressor) 25 mg PO BID [facility] Last Admin: 06/19/17 10:42 Dose: 25 mg Mupirocin (Bactroban Ointment) 0 gm TOP BID [facility] Last Admin: 06/19/17 10:45 Dose: 1 applic Pantoprazole Sodium (Protonix Susp) 40 mg GT 0600 [facility] Last Admin: 06/19/17 05:15 Dose: 40 mg - Labs Labs: 06/19/17 05:10 06/19/17 05:10 PT 14.7 Seconds (9.9-11.8) H 06/13/17 17:33 INR 1.36 (0.93-1.08) H 06/13/17 17:33 APTT 26.6 Seconds (23.7-30.8) 06/19/17 05:10 Attending/Attestation - Attestation I have personally seen and examined this patient.: Yes I have fully participated in the care of the patient.: Yes I have reviewed all pertinent clinical information, including history, physical exam and plan: Yes Notes (Text): I have seen and examined the patient at bedside. Agree with the above note with the following additions/ exceptions: Briefly this is 87 year old male with history of COPD, CHF last known EF of 30-35% in 08/2016, Paget's disease, HTN who presented with AMS and found to have hypercapnic respiratory failure secondary to COPD exacerbation vs. electrolyte abnormality vs ID. Patient is awake , alert and oriented x3. There are no focal deficits. MRI brain showed chronic changes. EEG result pending. He is on NC. Remains on solumedrol taper. He has chronic leg ulceration and bilateral infiltrates on CXR. Continue vancomycin and rocephin. For NSTEMI, he remains on asa, plavix, imdur and heparin drip. JASWINDER is improving. Nephro on board. Upon discharge patient will follow up with Dr Ferrari. Dr Stephanie Julien
--- NOTE | 2017-06-17 18:58 | CP.PCM.PN ---
Subjective - Date & Time of Evaluation Date of Evaluation: 06/17/17 Time of Evaluation: 17:45 - Subjective Subjective: Infectious Disease Follow Up: June 17, 2017 87 yo male brought in for lethargy and AMS. The patient has an extensive medical history that includes COPD, CHF last known EF of 30-35% in 08/2016, HTN , Paget's disease and PAD. The patient required intubation and ventilation once arriving in [facility]. He has been extubated now. Extubated now and feeling better. He is much more awake and alert today. No major complaints. Objective - Vital Signs/Intake and Output Vital Signs (last 24 hours): Temp Pulse Resp BP Pulse Ox 97.7 F 63 17 125/53 L 94 L 06/17/17 08:00 06/17/17 18:20 06/17/17 18:20 06/17/17 18:00 06/17/17 18:20 Intake and Output: 06/17/17 06/17/17 06:59 18:59 Intake Total 250 2420 Output Total 1000 Balance 250 1420 - Medications Medications: Current Medications Acetaminophen (Tylenol 325mg Tab) 650 mg PO Q6H PRN PRN Reason: Pain, moderate (4-7) Last Admin: 06/15/17 20:01 Dose: 650 mg Albuterol/Ipratropium (Duoneb 3 Mg/0.5 Mg (3 Ml) Ud) 3 ml IH [id number] [facility] Last Admin: 06/17/17 13:53 Dose: 3 ml Albuterol/Ipratropium (Duoneb 3 Mg/0.5 Mg (3 Ml) Ud) 3 ml IH Q2H PRN PRN Reason: Shortness of Breath Aspirin (Ecotrin) 81 mg PO DAILY [facility] Last Admin: 06/17/17 09:46 Dose: 81 mg Atorvastatin Calcium (Lipitor) 10 mg PO DAILY [facility] Last Admin: 06/17/17 09:46 Dose: 10 mg Clopidogrel Bisulfate (Plavix) 75 mg PO DAILY [facility] Last Admin: 06/17/17 09:46 Dose: 75 mg Hydralazine HCl (Apresoline) 10 mg IVP Q6 PRN PRN Reason: high blood pressure Ceftriaxone Sodium (Rocephin 1 Gram Ivpb) 1 gm in 100 mls @ 100 mls/hr IVPB DAILY [facility] PRN Reason: Protocol Last Admin: 06/17/17 09:47 Dose: 100 mls/hr Vancomycin HCl (Vancomycin 1gm) 1 gm in 250 mls @ 167 mls/hr IVPB DAILY [facility] PRN Reason: Protocol Last Admin: 06/17/17 09:47 Dose: 167 mls/hr Dextrose (Dextrose 5% In Water 1000 Ml) 1,000 mls @ 75 mls/hr IV .[id number] [facility] Last Admin: 06/17/17 09:52 Dose: 75 mls/hr Heparin Sodium/Dextrose (Heparin 25,000 Units/250ml In D5w) 25,000 units in 250 mls @ 12.084 mls/hr IV .[id number] PRN; Protocol; 18 UNITS/KG/HR PRN Reason: ADJUST RATE PER PROTOCOL Last Admin: 06/17/17 04:39 Dose: 15 units/kg/hr, 10.07 mls/hr Isosorbide Mononitrate (Imdur) 60 mg PO DAILY [facility] Last Admin: 06/17/17 09:46 Dose: 60 mg Methylprednisolone (Solu-Medrol) 40 mg IVP Q12 [facility] Last Admin: 06/17/17 09:46 Dose: 40 mg Metoprolol Tartrate (Lopressor) 25 mg PO BID [facility] Last Admin: 06/17/17 17:07 Dose: 25 mg Mupirocin (Bactroban Ointment) 0 gm TOP BID [facility] Last Admin: 06/17/17 17:07 Dose: 1 applic Pantoprazole Sodium (Protonix Susp) 40 mg GT 0600 [facility] Last Admin: 06/17/17 06:19 Dose: 40 mg - Labs Labs: 06/17/17 05:15 06/17/17 05:15 PT 14.7 Seconds (9.9-11.8) H 06/13/17 17:33 INR 1.36 (0.93-1.08) H 06/13/17 17:33 APTT 69.5 Seconds (23.7-30.8) H 06/17/17 11:55 - Constitutional Appears: Non-toxic, No Acute Distress, Chronically Ill - Head Exam Head Exam: ATRAUMATIC, NORMOCEPHALIC - Eye Exam Eye Exam: EOMI, PERRL Pupil Exam: NORMAL ACCOMODATION, PERRL - ENT Exam ENT Exam: Mucous Membranes Moist, Normal External Ear Exam, TM's Normal Bilaterally - Neck Exam Neck Exam: Full ROM, Normal Inspection - Respiratory Exam Respiratory Exam: Clear to Ausculation Bilateral, NORMAL BREATHING PATTERN. absent: Rales, Rhonchi, Wheezes - Cardiovascular Exam Cardiovascular Exam: REGULAR RHYTHM, RRR, +S1, +S2 - GI/Abdominal Exam GI & Abdominal Exam: Soft, Normal Bowel Sounds. absent: Distended, Tenderness - Extremities Exam Additional comments: +Heel protectors +Venous stasis skin changes B/L LE wrapped with curlex mild cellulitis of the bilateral lower extremities and chronic venous stasis. open ulcerations on the bilateral legs anteriorly. wounds are malodorous. - Neurological Exam Neurological Exam: Alert, Awake, CN II-XII Intact, Oriented x3 - Psychiatric Exam Psychiatric exam: Normal Affect, Normal Mood - Skin Additional comments: as per extremity exam. Assessment and Plan - Assessment and Plan (Free Text) Assessment: 87 yo male with AMS and lethargy. Etiology unclear. Broad spectrum coverage for now with Rocephin and Vancomycin treatment. Ignacio cultures. Imaging studies. Patient was intubated and ventilated but was extubated recently. Remains in ICU currently. He is more awake and alert now. Overall improving. Supportive care. Obtain procalcitonin... which was 0.48 which is normal. Follow up WBC and fever trend. Urine drug screen positive for Benzodiazepine. Respiratory failure. Renal insufficiency (acute or chronic?). Patient has a history of hypertension and systolic congestive heart failure. Patient improving and is mentally back to his normal state at this time. Thank you for allowing me to participate in the care of the patient, we will follow with you.
[2017-06-18] MEDS: Albuterol-Ipratrop 3 mg / 0.5 (3 ml) UD IH SCH ×4 (01:16→20:07)
[2017-06-18] MEDS: Pantoprazole 40 mg Susp UD GT SCH (05:22)
[2017-06-18 06:41] LABS: GRAN # 7.06 (1.4-6.5); GRAN % 93.4 % (50.0-68.0); HEMATOCRIT 39.9 % (42.0-52.0); LYMPH # 0.2 (1.2-3.4); LYMPH % 3.2 % (22.0-35.0); MEAN CELL VOLUME 91.7 fl (80.0-105.0); MEAN CORPUSCULAR HGB CONC 30.6 g/dl (31.0-37.0); MONO # 0.3 (0.1-0.6); MONO % 3.4 % (1.0-6.0); WHITE BLOOD COUNT 7.6 10^3/ul (4.5-11.0)
[2017-06-18 06:56] LABS: ALB/GLOB RATIO 0.8 (1.1-1.8); BILIRUBIN,TOTAL 0.6 mg/dL (0.2-1.3); CALCIUM 7.6 mg/dL (8.4-10.5); MAGNESIUM 1.7 mg/dL (1.7-2.2); PHOSPHOROUS 3.9 mg/dL (2.5-4.5); POTASSIUM 4.8 mmol/L (3.6-5.0); TOTAL PROTEIN 5.9 g/dL (5.8-8.3)
[2017-06-18] MEDS: Heparin 25,000units in D5W /250 ML BAG IV PRN (07:34)
--- NOTE | 2017-06-18 07:59 | RAD ---
HISTORY: f/u COMPARISON: 06/17/2017. FINDINGS: LUNGS: There is mild pulmonary venous congestion. There is persistent airspace disease in both lower lobes. PLEURA: There are small pleural effusions, no pneumothorax apparent. CARDIOVASCULAR: There is stable severe cardiomegaly. OSSEOUS STRUCTURES: No significant abnormalities. VISUALIZED UPPER ABDOMEN: Normal. OTHER FINDINGS: None. IMPRESSION: Severe cardiomegaly, mild pulmonary venous congestion and small pleural effusions, unchanged since the prior examination. Persistent atelectasis/ pneumonia in the lower lobes.
[2017-06-18] MEDS: MethylPREDNISolone 40 mg Vial IVP SCH ×2 (10:17→21:44)
[2017-06-18] MEDS: cefTRIAXone 1 gm 1 GM/100 ML BAG IVPB SCH (10:17)
[2017-06-18] MEDS: Vancomycin 1gm in NS 250ml 1 GM/250 ML BAG IVPB SCH (10:17)
--- NOTE | 2017-06-18 12:35 | PN ---
PULMONARY NOTE DATE: 06/18/2017(615am--705am) SUBJECTIVE: The patient appears comfortable this morning. He is not short of breath at rest. PHYSICAL EXAMINATION: VITAL SIGNS: Temperature is 97.6, pulse is 61, respirations are 16, blood pressure 144/74, and oxygen saturation on nasal cannula is 96%. HEENT: Normocephalic and atraumatic. NECK: No JVD. CARDIOVASCULAR: Systolic ejection murmur at the lower left sternal border. No S3 or gallop. LUNGS: Decreased breath sounds at the bases. Minimal/less rhonchi. No wheezing. EXTREMITIES: Mild edema. No cyanosis. No clubbing. Calves are nontender to palpation. GASTROINTESTINAL: Abdomen is soft, nontender, and nondistended. Bowel sounds are positive. SKIN: Chronic cellulitic changes on both lower extremities. NEUROLOGIC: Limited at the present time. PERTINENT LABORATORY DATA: Chest x-ray was done this morning and reviewed. The film remains with bilateral pulmonary infiltrates. However, on today's film , there are less infiltrates noted in the left lung. IMPRESSION: 1. Status post respiratory failure. 2. Subacute cerebrovascular accident. 3. Chronic obstructive pulmonary disease. 4. Bilateral pneumonia. 5. Myocardial infarction. 6. Renal insufficiency. 7. Multiple electrolyte abnormalities. PLAN: The patient remains in the ICU and off of the ventilator. He appears very comfortable this morning. He states he is feeling much better overall. I did discuss the case with the night nurse at length. The night nurse stated that the patient had a very good night. On physical exam, his bronchospasm continues to resolve. I will continue with the current nebulizer treatments and decrease intravenous steroids this morning. The patient remains on antibiotic therapy - as per infectious disease. There are no temperatures noted. The leukocytosis has resolved. Renal and cardiology evaluations are also noted. Clinical status of the patient is significantly improved - compared to last week. However, the overall status/prognosis for this elderly patient does remain very guarded. I will discuss the above with the entire ICU team the next few moments. I will also discuss the above with the attending physician. [place] MD Psychiatric # [id number] MTDD
--- NOTE | 2017-06-18 14:11 | CP.PCM.PN ---
Subjective - Date & Time of Evaluation Date of Evaluation: 06/18/17 Time of Evaluation: 14:05 - Subjective Subjective: Follow up Nephrology Consultation: Assessment: Stable Acute Hypercapnic respi failure s/p mechanical intubation, post-hypercapnic metabolic alkalosis Acute Kidney Injury (N17.9) likely due to dehydration as evident by Hypernatremia. Hyperkalemia: improved Hypertensive Chronic Kidney Disease (I12.9) Chronic Kidney Disease (N18.9) Stage 3 with 600 mg proteinuria (R80.9) possibly due to HTN/vasc disease HTN (I12.9), pulmonary fibrosis, chronic systolic CHF, bladder tumor, b/l kidney cysts Altered mental status NSTEMI Plan No acute need for renal replacement therapy at this time. Hypertension controlled with meds as ordered. Patient not on ACEI/ARB due to JASWINDER. At home he was on losartan 25 mg/day. can resume it at d/c. Monitor Input/Output, daily weights and renal function with basic metabolic panel d/c IVF. resume lasix 20 mg/day. Dose meds/antibiotics for reduced GFR ~ 50. Avoid fleets enema/magnesium based laxatives. Avoid nephrotoxins/NSAIDs/ iodinated contrast (unless needed emergently) Glycemic control Further work up/management as per primary team Thanks for allowing me to participate in care of your patient. Will follow patient with you. Please call if any Qs. Dr Edvin Nj Office: [phone] Chief Complaint; leg skin scaling off HPI: Pt is a 87 y/o M with hx of CHF (EF 30-35%), COPD with pulmonary fibrosis, CKD stage 3 (baseline cr 1.1-1.4 mg/dL), HTN, bladder tumor came to ER with altered mental status and shortness of breath and intubated for hypercapnic respi failure, transferred to ICU, renal consult requested for hypernatremia and JASWINDER. got extubated 06/15/17. ROS: Pt feels better. denies CP/SOB/nausea/vomitting or pain abdomen. he reports skin scaling off in legs Physical Examination: General Appearance: Comfortable, in no acute respiratory distress. Vitals reviewed and noted as below Head; Atraumatic, normocephalic Neck; supple no lymphadenopathy, no thyromegaly or bruit Lungs: Normal respiratory rate/effort. Breath sounds bilateral with basal crackles Heart: Normal rate. s1s2 normal. No rub or gallop. SM at left sternal border Extremities: 1+ edema. No varicose veins. has chronic venous stasis changes. both legs dressed, known to have chronic leg wounds Neurological: Patient is alert awake and oriented today Skin: Warm and dry. Normal turgor. No rash. Palpitation: Normal elasticity for age. has upper extremity echymoses/swelling + Abdomen: Abdomen is soft. Bowel sounds +. There is no abdominal tenderness, no guarding/rigidity no organomegaly MSK: no joint tenderness or swelling. Digits and nails normal, no deformity : kidney or bladder not palpable. has catheter Labs/imaging/EKG reviewed. Past medical history, past surgical history, family history, social history, allergy reviewed and noted as below Family hx: Unable to obtain Work up UA done by me showed 30+ protein large blood and LE ++ SG 1.025. microscopy showed very few granular casts, numerous WBCs and also monomorphic RBCs renal sono 2016: b/l renal cysts Objective - Vital Signs/Intake and Output Vital Signs (last 24 hours): Temp Pulse Resp BP Pulse Ox 97.5 F L 72 14 126/57 L 95 06/18/17 08:00 06/18/17 10:16 06/18/17 09:40 06/18/17 10:16 06/18/17 09:50 Intake and Output: 06/18/17 06/18/17 06:59 18:59 Intake Total 1018 250 Output Total 625 Balance 393 250 - Medications Medications: Current Medications Acetaminophen (Tylenol 325mg Tab) 650 mg PO Q6H PRN PRN Reason: Pain, moderate (4-7) Last Admin: 06/15/17 20:01 Dose: 650 mg Albuterol/Ipratropium (Duoneb 3 Mg/0.5 Mg (3 Ml) Ud) 3 ml IH [id number] [facility] Last Admin: 06/18/17 13:53 Dose: 3 ml Albuterol/Ipratropium (Duoneb 3 Mg/0.5 Mg (3 Ml) Ud) 3 ml IH Q2H PRN PRN Reason: Shortness of Breath Aspirin (Ecotrin) 81 mg PO DAILY [facility] Last Admin: 06/18/17 10:16 Dose: 81 mg Atorvastatin Calcium (Lipitor) 10 mg PO DAILY [facility] Last Admin: 06/18/17 10:16 Dose: 10 mg Clopidogrel Bisulfate (Plavix) 75 mg PO DAILY [facility] Last Admin: 06/18/17 10:16 Dose: 75 mg Furosemide (Lasix) 20 mg PO DAILY [facility] Hydralazine HCl (Apresoline) 10 mg IVP Q6 PRN PRN Reason: high blood pressure Ceftriaxone Sodium (Rocephin 1 Gram Ivpb) 1 gm in 100 mls @ 100 mls/hr IVPB DAILY [facility] PRN Reason: Protocol Last Admin: 06/18/17 10:17 Dose: 100 mls/hr Vancomycin HCl (Vancomycin 1gm) 1 gm in 250 mls @ 167 mls/hr IVPB DAILY [facility] PRN Reason: Protocol Last Admin: 06/18/17 10:17 Dose: 167 mls/hr Isosorbide Mononitrate (Imdur) 60 mg PO DAILY [facility] Last Admin: 06/18/17 10:16 Dose: 60 mg Methylprednisolone (Solu-Medrol) 30 mg IVP Q12 [facility] Last Admin: 06/18/17 10:17 Dose: 30 mg Metoprolol Tartrate (Lopressor) 25 mg PO BID [facility] Last Admin: 06/18/17 10:16 Dose: 25 mg Mupirocin (Bactroban Ointment) 0 gm TOP BID [facility] Last Admin: 06/17/17 17:07 Dose: 1 applic Pantoprazole Sodium (Protonix Susp) 40 mg GT 0600 [facility] Last Admin: 06/18/17 05:22 Dose: 40 mg - Labs Labs: 06/18/17 05:00 06/18/17 05:00 PT 14.7 Seconds (9.9-11.8) H 06/13/17 17:33 INR 1.36 (0.93-1.08) H 06/13/17 17:33 APTT 64.2 Seconds (23.7-30.8) H 06/18/17 05:00
--- NOTE | 2017-06-18 14:34 | CP.PCM.PN ---
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 Dressing to bilateral legs appear cdi. Patient is resting comfortably in bed. Patient complains of mild pain to the legs bilaterally. Patient denies of N/V/F/C or SOB today Patient is scheduled for debridement of non-viable softtissue right leg on Sunday06/20/2017. Podiatry plan for surgery is explained to the patient with all risks, benefits, possible complications. Patient agrees with podiatry plan Objective - Vital Signs/Intake and Output Vital Signs (last 24 hours): Temp Pulse Resp BP Pulse Ox 97.5 F L 72 14 126/57 L 95 06/18/17 08:00 06/18/17 10:16 06/18/17 09:40 06/18/17 10:16 06/18/17 09:50 Intake and Output: 06/18/17 06/18/17 06:59 18:59 Intake Total 1018 250 Output Total 625 Balance 393 250 - Medications Medications: Current Medications Acetaminophen (Tylenol 325mg Tab) 650 mg PO Q6H PRN PRN Reason: Pain, moderate (4-7) Last Admin: 06/15/17 20:01 Dose: 650 mg Albuterol/Ipratropium (Duoneb 3 Mg/0.5 Mg (3 Ml) Ud) 3 ml IH [id number] [facility] Last Admin: 06/18/17 13:53 Dose: 3 ml Albuterol/Ipratropium (Duoneb 3 Mg/0.5 Mg (3 Ml) Ud) 3 ml IH Q2H PRN PRN Reason: Shortness of Breath Aspirin (Ecotrin) 81 mg PO DAILY [facility] Last Admin: 06/18/17 10:16 Dose: 81 mg Atorvastatin Calcium (Lipitor) 10 mg PO DAILY [facility] Last Admin: 06/18/17 10:16 Dose: 10 mg Clopidogrel Bisulfate (Plavix) 75 mg PO DAILY [facility] Last Admin: 06/18/17 10:16 Dose: 75 mg Furosemide (Lasix) 20 mg PO DAILY [facility] Hydralazine HCl (Apresoline) 10 mg IVP Q6 PRN PRN Reason: high blood pressure Ceftriaxone Sodium (Rocephin 1 Gram Ivpb) 1 gm in 100 mls @ 100 mls/hr IVPB DAILY [facility] PRN Reason: Protocol Last Admin: 06/18/17 10:17 Dose: 100 mls/hr Vancomycin HCl (Vancomycin 1gm) 1 gm in 250 mls @ 167 mls/hr IVPB DAILY [facility] PRN Reason: Protocol Last Admin: 06/18/17 10:17 Dose: 167 mls/hr Isosorbide Mononitrate (Imdur) 60 mg PO DAILY [facility] Last Admin: 06/18/17 10:16 Dose: 60 mg Methylprednisolone (Solu-Medrol) 30 mg IVP Q12 [facility] Last Admin: 06/18/17 10:17 Dose: 30 mg Metoprolol Tartrate (Lopressor) 25 mg PO BID [facility] Last Admin: 06/18/17 10:16 Dose: 25 mg Mupirocin (Bactroban Ointment) 0 gm TOP BID [facility] Last Admin: 06/18/17 10:00 Dose: 1 applic Pantoprazole Sodium (Protonix Susp) 40 mg GT 0600 [facility] Last Admin: 06/18/17 05:22 Dose: 40 mg - Labs Labs: 06/18/17 05:00 06/18/17 05:00 PT 14.7 Seconds (9.9-11.8) H 06/13/17 17:33 INR 1.36 (0.93-1.08) H 06/13/17 17:33 APTT 64.2 Seconds (23.7-30.8) H 06/18/17 05:00 - Constitutional Appears: Well, Non-toxic, No Acute Distress - Extremities Exam Additional comments: Bilateral lower extremity exam DERM: Right: Open ulcerations to anterior and lateral aspect of leg measuring 20cm x 7cm x 0.2cm with mix of fibrotic and granular base. Moderate sero-sanguinous drainage is noted. Mal-odor is present. Slight purulent discharge noted. Erythema noted around the wound marings >2cm LeftL: Open ulcerations to anterior aspect of leg measuring 15cm x 7cm x 0.2cm with mix of fibrotic and granular base. Moderate sero-sanguinous drainage is noted. No mal-odor is present. No purulent discharge noted. Erythema noted around the wound marings >2cm VASC: Palpable DP and PT noted 1/4 bilaterally. OB GYN less than 3 seconds noted to all digits - Neurological Exam Neurological Exam: Alert, Awake, Oriented x3 - Psychiatric Exam Psychiatric exam: Normal Affect, Normal Mood - Skin Skin Exam: Normal Color, Warm Assessment and Plan - Assessment and Plan (Free Text) Assessment: 87 yo male patient presenting with infected ulcerations to anterior aspect of bilateral legs Right worse than Left Plan: Patient was seen, evaluated and treated with all questions and concerns addressed [facility] attending Dr. Buitrago labs and vitals reviewed Right leg WCX: E.Coli, Staph. Aureus (Resistant to PCN but Oxa sensitive) Left leg WCX: Klebsella Oxytosa, Staph Aureus Bilateral legs dressed with Bactroban, Telfa, DSD Continue IV Abx per ID Podiatry will continue to follow in-house Podiatry plan to take patient to surgery this Sunday06/20/2017 in the morning for right leg wound debridement <Siri Buitrago - Last Filed: 06/24/17 19:41> Objective - Vital Signs/Intake and Output Vital Signs (last 24 hours): Temp Pulse Resp BP Pulse Ox 97.6 F 69 18 180/78 H 94 L 06/23/17 07:30 06/23/17 09:56 06/23/17 07:30 06/23/17 09:56 06/23/17 07:30 - Labs Labs: 06/23/17 10:30 06/23/17 10:30 PT 14.7 Seconds (9.9-11.8) H 06/13/17 17:33 INR 1.36 (0.93-1.08) H 06/13/17 17:33 APTT 26.6 Seconds (23.7-30.8) 06/19/17 05:10 Attending/Attestation - Attestation I have personally seen and examined this patient.: Yes I have fully participated in the care of the patient.: Yes I have reviewed all pertinent clinical information, including history, physical exam and plan: Yes
--- NOTE | 2017-06-18 19:59 | PN ---
DATE: 06/18/2017 SUBJECTIVE: The patient is seen lying bed in CCU. He is comfortable at the present time. He appears mildly confused. He exhibits no respiratory distress. He denies any chest pain. CURRENT MEDICATIONS: Include hydralazine p.r.n., DuoNeb inhaler, Ecotrin, IV heparin, Imdur 60 mg daily, Lipitor 10 mg daily, metoprolol 25 mg b.i.d., Plavix 75 mg daily, Protonix, Rocephin, Solu-Medrol 30 mg, q. 12 hours, vancomycin 1 gm daily. OBJECTIVE: GENERAL: He is a very elderly man appears comfortable at rest. VITAL SIGNS: Blood pressure 126/60 with a pulse of 72 and sinus respirations are 14. He is currently afebrile. HEENT: No JVD. CHEST: Few scattered rhonchi heard. HEART: PMI displaced laterally with systolic murmur in the left sternal border. ABDOMEN: Soft and nontender with no active bowel sounds. EXTREMITIES: Both legs are wrapped and in protective boots. DIAGNOSTIC DATA: Potassium 4.8, BUN and creatinine 42 and 1.4, white count 7.6, hemoglobin and hematocrit 12.0 and 39.9 with platelet count of 140,000, PTT is 64, last troponin is 0.16. Chest x-ray reveals mild pulmonary vascular congestion with small bilateral effusions and increased cardiac silhouette. IMPRESSION: 1. Recent respiratory failure, clinically improved. 2. Leg cellulitis with evidence of Klebsiella and Staphylococcus aureus. 3. Severe left ventricular dysfunction. 4. Moderately severe aortic insufficiency with mild aortic stenosis. 5. Moderately severe mitral regurgitation. 6. Altered mental status clinically improved. RECOMMENDATIONS: Continue conservative cardiac management appears most appropriately at this time. Wound care and antibiotic therapy should be continue. conservative management of his valvular heart disease is advised at this time. Smoking abstinence was encouraged again. We will continue to follow and make further recommendations as appropriate. Seth Gomez MD
--- NOTE | 2017-06-18 22:38 | CP.PCM.PN ---
<GENTRY CASEY - Last Filed: 06/18/17 22:34> Subjective - Date & Time of Evaluation Date of Evaluation: 06/18/17 Time of Evaluation: 07:30 - Subjective Subjective: Gentry Casey DO PGY1 - Medicine Progress Note Patient seen and examined at bedside. Nurse reports no acute events overnight. Patient admits to still having some pain in b/l LE. He has no new complaints, and denies CP, SOB, abdominal pain, F/C, N/V/D/C. He is AAOx3 and is satting well on 3L NC. Surgery scheduled with podiatry on 06/20 for debridement of RLE nonviable tissue. Objective - Vital Signs/Intake and Output Vital Signs (last 24 hours): Temp Pulse Resp BP Pulse Ox 97.8 F 65 20 122/48 L 99 06/18/17 16:00 06/18/17 18:20 06/18/17 18:20 06/18/17 18:00 06/18/17 18:20 Intake and Output: 06/18/17 06/19/17 18:59 06:59 Intake Total 1370 Output Total 550 Balance 820 - Medications Medications: Current Medications Acetaminophen (Tylenol 325mg Tab) 650 mg PO Q6H PRN PRN Reason: Pain, moderate (4-7) Last Admin: 06/15/17 20:01 Dose: 650 mg Albuterol/Ipratropium (Duoneb 3 Mg/0.5 Mg (3 Ml) Ud) 3 ml IH Q0VQBAS [facility] Last Admin: 06/18/17 20:07 Dose: 3 ml Albuterol/Ipratropium (Duoneb 3 Mg/0.5 Mg (3 Ml) Ud) 3 ml IH Q2H PRN PRN Reason: Shortness of Breath Aspirin (Ecotrin) 81 mg PO DAILY [facility] Last Admin: 06/18/17 10:16 Dose: 81 mg Atorvastatin Calcium (Lipitor) 10 mg PO DAILY [facility] Last Admin: 06/18/17 10:16 Dose: 10 mg Clopidogrel Bisulfate (Plavix) 75 mg PO DAILY [facility] Last Admin: 06/18/17 10:16 Dose: 75 mg Furosemide (Lasix) 20 mg PO DAILY [facility] Last Admin: 06/18/17 17:30 Dose: 20 mg Hydralazine HCl (Apresoline) 10 mg IVP Q6 PRN PRN Reason: high blood pressure Ceftriaxone Sodium (Rocephin 1 Gram Ivpb) 1 gm in 100 mls @ 100 mls/hr IVPB DAILY [facility] PRN Reason: Protocol Last Admin: 06/18/17 10:17 Dose: 100 mls/hr Vancomycin HCl (Vancomycin 1gm) 1 gm in 250 mls @ 167 mls/hr IVPB DAILY [facility] PRN Reason: Protocol Last Admin: 06/18/17 10:17 Dose: 167 mls/hr Isosorbide Mononitrate (Imdur) 60 mg PO DAILY [facility] Last Admin: 06/18/17 10:16 Dose: 60 mg Methylprednisolone (Solu-Medrol) 30 mg IVP Q12 [facility] Last Admin: 06/18/17 21:44 Dose: 30 mg Metoprolol Tartrate (Lopressor) 25 mg PO BID [facility] Last Admin: 06/18/17 17:31 Dose: 25 mg Mupirocin (Bactroban Ointment) 0 gm TOP BID [facility] Last Admin: 06/18/17 17:27 Dose: 1 applic Pantoprazole Sodium (Protonix Susp) 40 mg GT 0600 [facility] Last Admin: 06/18/17 05:22 Dose: 40 mg - Labs Labs: 06/18/17 05:00 06/18/17 05:00 PT 14.7 Seconds (9.9-11.8) H 06/13/17 17:33 INR 1.36 (0.93-1.08) H 06/13/17 17:33 APTT 64.2 Seconds (23.7-30.8) H 06/18/17 05:00 - Constitutional Appears: Non-toxic, No Acute Distress, Chronically Ill - Head Exam Head Exam: ATRAUMATIC, NORMOCEPHALIC - Eye Exam Eye Exam: EOMI, PERRL - ENT Exam ENT Exam: Mucous Membranes Moist Additional comments: edentulous - Neck Exam Neck Exam: absent: Lymphadenopathy, Tenderness - Respiratory Exam Respiratory Exam: Rales (mild, diffuse), NORMAL BREATHING PATTERN Additional comments: On 3L NC - Cardiovascular Exam Cardiovascular Exam: RRR, +S1, +S2 - GI/Abdominal Exam GI & Abdominal Exam: Distended (mild), Firm (mild), Soft. absent: Guarding, Rigid Additional comments: hyperresonant - Extremities Exam Additional comments: B/L lower extremities bandaged circumfrentially from ankles to knees, dressings appear CDI. Mild erythema and trace edema noted in b/l ankles and feet - Neurological Exam Neurological Exam: Alert, Awake, CN II-XII Intact, Oriented x3 Neuro motor strength exam: Left Upper Extremity: 5, Right Upper Extremity: 5, Left Lower Extremity: 5, Right Lower Extremity: 5 - Psychiatric Exam Psychiatric exam: Normal Affect, Normal Mood - Skin Additional comments: B/L forearms large erythematous plaques with 1-2 small bullae on each arm, with disseminated echymoses, likely 2/2 heparin drip and multiple venipunctures daily Assessment and Plan - Assessment and Plan (Free Text) Assessment: This is an 87 yo M with PMH of COPD, CHF (30% --> 17% EF), Paget's disease, and HTN who presented with AMS and hypercapnic respiratory failure requiring intubation/mechanical ventilation. Pt is 4 days s/p extubation, AAOx3 , following commands and mentating well. Remains on IV abx for b/l LE cellulitis positive for MRSA. Plan: 1) Acute Hypercapnic Respiratory Failure: Resolved -2/2 CHF exacerbation vs COPD exacerbation vs electrolyte abnormality vs CVA vs NSTEMI/STEMI -4 days s/p extubation, tolerating well -Head CT negative for acute stroke -continue Solumedrol 30mg IV Q12H - tapering down - Nebs Q6H tomer/Q2 prn, as per Pulm -Satting well on O2 NC, maintain SaO2 88-95%, avoid persistently elevated SaO2 to prevent suppression of respiratory drive in COPD pt -Elevated trops on admission, max of 1.16, now downtrending; as per cardio, consistent with acute MN -Continue Metoprolol, Imdur, Statin, ASA, Plavix -Discontinue heparin drip per cardio, will continue with conservative management at this time, no new stress test -Cardio (Santa), Neuro (Cindi Castro), and Pulm (Jayy) consulted, appreciate all recs 2) Altered Mental Status: Resolved -2/2 Hypercapnic resp failure vs Sepsis from LE cellulitis vs LE ulcers vs CVA vs seizures vs ACS -Head CT: small hypodense lacunar infarct within the left cerebellar lobe, considered to be subacute -UDS (+) benzos, no benzos listed in home medication charting -MRI showing chronic microvascular changes, MRA unremarkable -EEG completed, f/u read -Blood cx showing no growth x 5 days, urine cx no growth -Wound cxs: +MRSA, Right leg WCX: E.Coli, Staph. Aureus (Resistant to PCN but Oxa sensitive); Left leg WCX: Klebsella Oxytosa, Staph Aureus -Continue Vancomycin and Rocephin -ID (Mario) and Podiatry (Iftikhar) consulted, appreciate all recs; Cardio, Neuro, and Pulm also on board -Continue ASA, plavix, Lipitor 3) NSTEMI -Troponins peaked at 1.16, downtrending -Heparin drip discontinued today per cardio, 48hrs s/p NSTEMI, continue conservative management, no stress test at this time per cardio -Continue ASA, plavix, imdur -Cardio consulted, appreciate all recs 4) Chronic venous stasis ulceration and b/l LE cellulitis -B/L lower extremity wounds currently being managed by podiatry -Daily dressing changes and topical antibiotic application -Wound cxs: Right leg WCX: E.Coli, Staph. Aureus (Resistant to PCN but Oxa sensitive); Left leg WCX: Klebsella Oxytosa, Staph Aureus -Rocephin and vanc -Patient is up for surgery 06/20 for debridement of RLE wound nonviable tissue with podiatry 5) Congestive Heart Failure (Systolic) -Continue home meds -Strict I&O's -Daily weights -Cardio consulted, appreciate all recs 6) Acute Kidney Injury: improving -renal fcn improving, baseline Cr per charting 1.1-1.3, currently 1.4 -monitor I&Os -Nephro (Wise) consulted, appreciate all recs 7) Hypertension -continue Lopressor 5mg Q8H, Hydralazine 10mg Q6H PRN Ppx: Heparin SQ for DVT, Protonix for GI Patient reviewed and discussed with attending <Stephanie Julien - Last Filed: 06/20/17 16:58> Objective - Vital Signs/Intake and Output Vital Signs (last 24 hours): Temp Pulse Resp BP Pulse Ox 97.9 F 68 18 131/61 94 L 06/20/17 11:58 06/20/17 11:58 06/20/17 11:58 06/20/17 11:58 06/20/17 11:58 Intake and Output: 06/20/17 06/20/17 06:59 18:59 Intake Total 1250 640 Output Total 950 400 Balance 300 240 - Medications Medications: Current Medications Acetaminophen (Tylenol 325mg Tab) 650 mg PO Q6H PRN PRN Reason: Pain, moderate (4-7) Last Admin: 06/15/17 20:01 Dose: 650 mg Albuterol/Ipratropium (Duoneb 3 Mg/0.5 Mg (3 Ml) Ud) 3 ml IH [id number] [facility] Last Admin: 06/20/17 13:24 Dose: 3 ml Albuterol/Ipratropium (Duoneb 3 Mg/0.5 Mg (3 Ml) Ud) 3 ml IH Q2H PRN PRN Reason: Shortness of Breath Aspirin (Ecotrin) 81 mg PO DAILY [facility] Last Admin: 06/19/17 10:42 Dose: 81 mg Atorvastatin Calcium (Lipitor) 10 mg PO DAILY [facility] Last Admin: 06/19/17 10:42 Dose: 10 mg Clopidogrel Bisulfate (Plavix) 75 mg PO DAILY [facility] Last Admin: 06/19/17 10:42 Dose: 75 mg Heparin Sodium (Porcine) (Heparin) 5,000 units SC Q12 [facility] PRN Reason: Protocol Last Admin: 06/19/17 11:07 Dose: 5,000 units Hydralazine HCl (Apresoline) 10 mg IVP Q6 PRN PRN Reason: high blood pressure Ceftriaxone Sodium (Rocephin 1 Gram Ivpb) 1 gm in 100 mls @ 100 mls/hr IVPB DAILY [facility] PRN Reason: Protocol Last Admin: 06/19/17 10:43 Dose: 100 mls/hr Vancomycin HCl (Vancomycin 1gm) 1 gm in 250 mls @ 167 mls/hr IVPB DAILY [facility] PRN Reason: Protocol Last Admin: 06/19/17 10:43 Dose: 167 mls/hr Isosorbide Mononitrate (Imdur) 60 mg PO DAILY [facility] Last Admin: 06/20/17 10:07 Dose: Not Given Methylprednisolone (Solu-Medrol) 20 mg IVP Q12 [facility] Metoprolol Tartrate (Lopressor) 25 mg PO BID [facility] Last Admin: 06/20/17 09:40 Dose: 25 mg Mupirocin (Bactroban Ointment) 0 gm TOP BID [facility] Last Admin: 06/20/17 10:09 Dose: Not Given Pantoprazole Sodium (Protonix Susp) 40 mg GT 0600 [facility] Last Admin: 06/19/17 05:15 Dose: 40 mg - Labs Labs: 06/20/17 07:30 06/20/17 07:30 PT 14.7 Seconds (9.9-11.8) H 06/13/17 17:33 INR 1.36 (0.93-1.08) H 06/13/17 17:33 APTT 26.6 Seconds (23.7-30.8) 06/19/17 05:10 Attending/Attestation - Attestation I have personally seen and examined this patient.: Yes I have fully participated in the care of the patient.: Yes I have reviewed all pertinent clinical information, including history, physical exam and plan: Yes Notes (Text): I have seen and examined the patient at bedside. Agree with the above note with the following additions/ exceptions: Briefly this is 87 year old male with history of COPD, CHF EF of 17%, Paget's disease, HTN who presented with AMS and found to have hypercapnic respiratory failure secondary to COPD exacerbation vs. electrolyte abnormality. Patient is awake , alert and oriented x3. There are no focal deficits. He is on 2L NC. He is on tapering dose of steroids as per pulmonary. MRI brain showed chronic changes. EEG ahowed generalized slowing. . He is on NC. Remains on solumedrol taper. He has chronic leg ulceration and bilateral infiltrates on CXR. Continue vancomycin and rocephin. For NSTEMI, he remains on asa, plavix, imdur. Heparin drip stopped. Conservative management as per cardio. JASWINDER is improving. Nephro on board. Upon discharge patient will follow up with Dr Ferrari. Dr Stephanie Julien
--- NOTE | 2017-06-18 23:21 | CP.PCM.PN ---
Subjective - Date & Time of Evaluation Date of Evaluation: 06/18/17 Time of Evaluation: 20:45 - Subjective Subjective: Infectious Disease Follow Up: June 18, 2017 87 yo male brought in for lethargy and AMS. The patient has an extensive medical history that includes COPD, CHF last known EF of 30-35% in 08/2016, HTN , Paget's disease and PAD. The patient required intubation and ventilation once arriving in [facility]. He has been extubated now. Extubated now and feeling better. He is much more awake and alert today. No major complaints. He does complain of bilateral lower extremity pain. Objective - Vital Signs/Intake and Output Vital Signs (last 24 hours): Temp Pulse Resp BP Pulse Ox 97.8 F 65 20 122/48 L 99 06/18/17 16:00 06/18/17 18:20 06/18/17 18:20 06/18/17 18:00 06/18/17 18:20 Intake and Output: 06/18/17 06/19/17 18:59 06:59 Intake Total 1370 Output Total 550 Balance 820 - Medications Medications: Current Medications Acetaminophen (Tylenol 325mg Tab) 650 mg PO Q6H PRN PRN Reason: Pain, moderate (4-7) Last Admin: 06/15/17 20:01 Dose: 650 mg Albuterol/Ipratropium (Duoneb 3 Mg/0.5 Mg (3 Ml) Ud) 3 ml IH [id number] [facility] Last Admin: 06/18/17 20:07 Dose: 3 ml Albuterol/Ipratropium (Duoneb 3 Mg/0.5 Mg (3 Ml) Ud) 3 ml IH Q2H PRN PRN Reason: Shortness of Breath Aspirin (Ecotrin) 81 mg PO DAILY [facility] Last Admin: 06/18/17 10:16 Dose: 81 mg Atorvastatin Calcium (Lipitor) 10 mg PO DAILY [facility] Last Admin: 06/18/17 10:16 Dose: 10 mg Clopidogrel Bisulfate (Plavix) 75 mg PO DAILY [facility] Last Admin: 06/18/17 10:16 Dose: 75 mg Furosemide (Lasix) 20 mg PO DAILY [facility] Last Admin: 06/18/17 17:30 Dose: 20 mg Heparin Sodium (Porcine) (Heparin) 5,000 units SC Q12 [facility] PRN Reason: Protocol Hydralazine HCl (Apresoline) 10 mg IVP Q6 PRN PRN Reason: high blood pressure Ceftriaxone Sodium (Rocephin 1 Gram Ivpb) 1 gm in 100 mls @ 100 mls/hr IVPB DAILY [facility] PRN Reason: Protocol Last Admin: 06/18/17 10:17 Dose: 100 mls/hr Vancomycin HCl (Vancomycin 1gm) 1 gm in 250 mls @ 167 mls/hr IVPB DAILY [facility] PRN Reason: Protocol Last Admin: 06/18/17 10:17 Dose: 167 mls/hr Isosorbide Mononitrate (Imdur) 60 mg PO DAILY [facility] Last Admin: 06/18/17 10:16 Dose: 60 mg Methylprednisolone (Solu-Medrol) 30 mg IVP Q12 [facility] Last Admin: 06/18/17 21:44 Dose: 30 mg Metoprolol Tartrate (Lopressor) 25 mg PO BID [facility] Last Admin: 06/18/17 17:31 Dose: 25 mg Mupirocin (Bactroban Ointment) 0 gm TOP BID [facility] Last Admin: 06/18/17 17:27 Dose: 1 applic Pantoprazole Sodium (Protonix Susp) 40 mg GT 0600 [facility] Last Admin: 06/18/17 05:22 Dose: 40 mg - Labs Labs: 06/18/17 05:00 06/18/17 05:00 PT 14.7 Seconds (9.9-11.8) H 06/13/17 17:33 INR 1.36 (0.93-1.08) H 06/13/17 17:33 APTT 64.2 Seconds (23.7-30.8) H 06/18/17 05:00 - Constitutional Appears: Non-toxic, No Acute Distress, Chronically Ill - Head Exam Head Exam: ATRAUMATIC, NORMOCEPHALIC - Eye Exam Eye Exam: EOMI, PERRL Pupil Exam: NORMAL ACCOMODATION, PERRL - ENT Exam ENT Exam: Mucous Membranes Moist, Normal External Ear Exam, TM's Normal Bilaterally - Neck Exam Neck Exam: Full ROM, Normal Inspection - Respiratory Exam Respiratory Exam: Clear to Ausculation Bilateral, NORMAL BREATHING PATTERN. absent: Rales, Rhonchi, Wheezes - Cardiovascular Exam Cardiovascular Exam: REGULAR RHYTHM, RRR, +S1, +S2 - GI/Abdominal Exam GI & Abdominal Exam: Soft, Normal Bowel Sounds. absent: Distended, Tenderness - Extremities Exam Additional comments: +Heel protectors +Venous stasis skin changes B/L LE wrapped with curlex mild cellulitis of the bilateral lower extremities and chronic venous stasis. open ulcerations on the bilateral legs anteriorly. wounds are malodorous. - Neurological Exam Neurological Exam: Alert, Awake, CN II-XII Intact, Oriented x3 - Psychiatric Exam Psychiatric exam: Normal Affect, Normal Mood - Skin Additional comments: as above. Assessment and Plan - Assessment and Plan (Free Text) Assessment: 87 yo male with AMS and lethargy. Etiology unclear. Broad spectrum coverage for now with Rocephin and Vancomycin treatment. Ignacio cultures. Imaging studies. Patient was intubated and ventilated but was extubated recently. Remains in ICU currently. He is more awake and alert now. Overall improving. Supportive care. Obtain procalcitonin... which was 0.48 which is normal. Follow up WBC and fever trend. Urine drug screen positive for Benzodiazepine. Respiratory failure. Renal insufficiency (acute or chronic?). Patient has a history of hypertension and systolic congestive heart failure. Patient improving and is mentally back to his normal state at this time. His only complaint is of bilateral lower leg pains. Possibly going to the OR on Sunday for debridement of unhealthy tissue of the legs. Thank you for allowing me to participate in the care of the patient, we will follow with you.
[2017-06-19] MEDS: Albuterol-Ipratrop 3 mg / 0.5 (3 ml) UD IH SCH ×4 (01:33→20:42)
[2017-06-19] MEDS: Pantoprazole 40 mg Susp UD GT SCH (05:15)
[2017-06-19 06:29] LABS: GRAN # 7.37 (1.4-6.5); GRAN % 91.8 % (50.0-68.0); HEMATOCRIT 40.7 % (42.0-52.0); LYMPH # 0.3 (1.2-3.4); LYMPH % 3.5 % (22.0-35.0); MEAN CELL VOLUME 90.4 fl (80.0-105.0); MEAN CORPUSCULAR HEMOGLOBIN 28.4 pg (25.0-35.0); MEAN CORPUSCULAR HGB CONC 31.4 g/dl (31.0-37.0); MEAN PLATELET VOLUME 11.1 fl (7.0-11.0); MONO # 0.4 (0.1-0.6); MONO % 4.7 % (1.0-6.0); PLATELET COUNT 138 10^3/uL (120.0-450.0)
[2017-06-19 06:38] LABS: ALB/GLOB RATIO 0.9 (1.1-1.8); BILIRUBIN,TOTAL 0.7 mg/dL (0.2-1.3); CALCIUM 8.1 mg/dL (8.4-10.5); MAGNESIUM 1.8 mg/dL (1.7-2.2); POTASSIUM 5.2 mmol/L (3.6-5.0); TOTAL PROTEIN 6.2 g/dL (5.8-8.3)
[2017-06-19 06:57] LABS: ANISOCYTOSIS SLIGHT; BAND 3 % (0-2); NEUTROPHIL 89 % (50.0-70.0); PLATELET ESTIMATE NORMAL (NORMAL)
--- NOTE | 2017-06-19 08:40 | PN ---
DATE: 06/19/2017(615am--705am) SUBJECTIVE: The patient appears comfortable this morning. He is not short of breath at rest. PHYSICAL EXAMINATION VITAL SIGNS: Temperature is 97.8, pulse is 70, respirations 17, blood pressure 178/86. Oxygen saturation on nasal cannula is 99%. HEENT: Normocephalic, atraumatic. NECK: No JVD. CARDIOVASCULAR: Systolic ejection murmur at the lower left sternal border. No S3 gallop. LUNGS: Decreased breath sounds at the bases. Minimal rhonchi. No wheezing. EXTREMITIES: Mild edema. No cyanosis, no clubbing. Calves are nontender to palpation. GASTROINTESTINAL: Abdomen is soft, nontender, nondistended. Bowel sounds are positive. SKIN: Chronic cellulitic changes on both lower extremities. NEUROLOGIC: Limited at the present time. LABORATORY DATA: Chest x-ray was done this morning and reviewed. There are less pulmonary infiltrates noted. There appears to be an linear artifact versus atelectasis noted in the right lower lobe, but it appears more to be an artifact. IMPRESSION: 1. Status post respiratory failure. 2. Subacute cerebrovascular accident. 3. Chronic obstructive pulmonary disease. 4. Bilateral pneumonia. 5. Myocardial infarction. 6. Renal insufficiency. 7. Electrolyte abnormalities. PLAN: The patient appears quite comfortable this morning. He is not short of breath at rest. He states he is feeling much better overall. I did discuss the case with the night nurse at length. The night nurse stated that the patient had a very good night. I have also reviewed the chest x-ray-as above. There appears to be a linear artifact noted in the right lower lobe. Less likely, it is atelectasis. I will check a repeat chest x-ray for additional evaluation. On physical exam, the patient's bronchospasm continues to resolve. I will continue the current nebulizer treatments and low dose intravenous steroids ( decreased yesterday) for now. I would continue with the antibiotic coverage as per infectious disease. There are no temperatures noted. The leukocytosis has resolved. I would continue with the cardiology evaluation. Input by Dr. Gomez is noted. Clinical status of the patient is significantly improved-compared to last week. However, again, the overall status/prognosis for this patient does remain very guarded. I will discuss the above with the entire ICU team in the next few moments. I will also discuss the above with the attending physician. [place] MD [email or web address]
--- NOTE | 2017-06-19 09:06 | RAD ---
HISTORY: f/u COMPARISON: 06/18/2017 FINDINGS: LUNGS: Since the prior examination, there has been no significant interval change in left perihilar and lower lobe airspace disease. There is persistent pulmonary venous congestion. PLEURA: There are bilateral pleural effusions and fluid in the right major fissure. CARDIOVASCULAR: There is persistent severe cardiomegaly. OSSEOUS STRUCTURES: No significant abnormalities. VISUALIZED UPPER ABDOMEN: Normal. OTHER FINDINGS: None. IMPRESSION: No significant interval change in congestive heart failure with presumable left perihilar pulmonary edema, small pleural effusions and fluid in the right minor fissure. Left lower lobe airspace disease could represent atelectasis or pneumonia.
[2017-06-19] MEDS: Vancomycin 1gm in NS 250ml 1 GM/250 ML BAG IVPB SCH (10:43)
[2017-06-19] MEDS: cefTRIAXone 1 gm 1 GM/100 ML BAG IVPB SCH (10:43)
[2017-06-19] MEDS: MethylPREDNISolone 40 mg Vial IVP SCH ×2 (11:00→22:03)
[2017-06-19 11:12] LABS: IGG,SERUM 1344 mg/dL (694-1618); IGM,SERUM 63 mg/dL (48-271)
--- NOTE | 2017-06-19 13:42 | CP.PCM.PN ---
<Andres Mckeon - Last Filed: 06/19/17 13:41> Subjective - Date & Time of Evaluation Date of Evaluation: 06/19/17 Time of Evaluation: 13:41 - Subjective Subjective: 87 yo male patient with PMHx of Paget's disease was seen at bedside this Am concerning ulcerations to bilateral legs. Dressing to bilateral legs appear cdi. Patient is resting comfortably in bed. Patient complains of mild pain to the legs bilaterally. Patient denies of N/V/F/C or SOB today Patient is scheduled for debridement of non-viable soft tissue right leg on Sunday06/20/2017. Podiatry plan for surgery is explained to the patient with all risks, benefits, possible complications. Patient agrees with podiatry plan Surgery consent to be obtained Objective - Vital Signs/Intake and Output Vital Signs (last 24 hours): Temp Pulse Resp BP Pulse Ox 97.8 F 77 17 159/66 H 99 06/18/17 16:00 06/19/17 10:42 06/19/17 04:10 06/19/17 10:42 06/19/17 04:10 - Medications Medications: Current Medications Acetaminophen (Tylenol 325mg Tab) 650 mg PO Q6H PRN PRN Reason: Pain, moderate (4-7) Last Admin: 06/15/17 20:01 Dose: 650 mg Albuterol/Ipratropium (Duoneb 3 Mg/0.5 Mg (3 Ml) Ud) 3 ml IH [id number] [facility] Last Admin: 06/19/17 13:15 Dose: 3 ml Albuterol/Ipratropium (Duoneb 3 Mg/0.5 Mg (3 Ml) Ud) 3 ml IH Q2H PRN PRN Reason: Shortness of Breath Aspirin (Ecotrin) 81 mg PO DAILY [facility] Last Admin: 06/19/17 10:42 Dose: 81 mg Atorvastatin Calcium (Lipitor) 10 mg PO DAILY [facility] Last Admin: 06/19/17 10:42 Dose: 10 mg Clopidogrel Bisulfate (Plavix) 75 mg PO DAILY [facility] Last Admin: 06/19/17 10:42 Dose: 75 mg Furosemide (Lasix) 20 mg PO DAILY [facility] Last Admin: 06/19/17 10:41 Dose: 20 mg Heparin Sodium (Porcine) (Heparin) 5,000 units SC Q12 [facility] PRN Reason: Protocol Hydralazine HCl (Apresoline) 10 mg IVP Q6 PRN PRN Reason: high blood pressure Ceftriaxone Sodium (Rocephin 1 Gram Ivpb) 1 gm in 100 mls @ 100 mls/hr IVPB DAILY [facility] PRN Reason: Protocol Last Admin: 06/19/17 10:43 Dose: 100 mls/hr Vancomycin HCl (Vancomycin 1gm) 1 gm in 250 mls @ 167 mls/hr IVPB DAILY [facility] PRN Reason: Protocol Last Admin: 06/19/17 10:43 Dose: 167 mls/hr Isosorbide Mononitrate (Imdur) 60 mg PO DAILY [facility] Last Admin: 06/19/17 10:42 Dose: 60 mg Methylprednisolone (Solu-Medrol) 30 mg IVP Q12 [facility] Last Admin: 06/18/17 21:44 Dose: 30 mg Metoprolol Tartrate (Lopressor) 25 mg PO BID [facility] Last Admin: 06/19/17 10:42 Dose: 25 mg Mupirocin (Bactroban Ointment) 0 gm TOP BID [facility] Last Admin: 06/19/17 10:45 Dose: 1 applic Pantoprazole Sodium (Protonix Susp) 40 mg GT 0600 [facility] Last Admin: 06/19/17 05:15 Dose: 40 mg - Labs Labs: 06/19/17 05:10 06/19/17 05:10 PT 14.7 Seconds (9.9-11.8) H 06/13/17 17:33 INR 1.36 (0.93-1.08) H 06/13/17 17:33 APTT 26.6 Seconds (23.7-30.8) 06/19/17 05:10 - Constitutional Appears: Well, Non-toxic, No Acute Distress - Extremities Exam Additional comments: Bilateral lower extremity exam DERM: Right: Open ulcerations to anterior and lateral aspect of leg measuring 20cm x 7cm x 0.2cm with mix of fibrotic and granular base. Moderate sero-sanguinous drainage is noted. Mal-odor is present. Slight purulent discharge noted. Erythema noted around the wound marings >2cm LeftL: Open ulcerations to anterior aspect of leg measuring 15cm x 7cm x 0.2cm with mix of fibrotic and granular base. Moderate sero-sanguinous drainage is noted. No mal-odor is present. No purulent discharge noted. Erythema noted around the wound marings >2cm VASC: Palpable DP and PT noted 1/4 bilaterally. DISULFURIZER TENDER less than 3 seconds noted to all digits - Neurological Exam Neurological Exam: Alert, Awake - Psychiatric Exam Psychiatric exam: Normal Affect, Normal Mood - Skin Skin Exam: Normal Color, Warm Assessment and Plan - Assessment and Plan (Free Text) Assessment: 87 yo male patient presenting with infected ulcerations to anterior aspect of bilateral legs Right worse than Left Plan: Patient was seen, evaluated and treated with all questions and concerns addressed labs and vitals reviewed Right leg WCX: E.Coli, Staph. Aureus (Resistant to PCN but Oxa sensitive) Left leg WCX: Klebsella Oxytosa, Staph Aureus Bilateral legs dressed with Bactroban, Telfa, DSD Continue IV Abx per ID Podiatry will continue to follow in-house Podiatry plan to take patient to surgery this Sunday06/20/2017 in the morning for right leg wound debridement <Noam Cummings - Last Filed: 06/21/17 08:03> Objective - Vital Signs/Intake and Output Vital Signs (last 24 hours): Temp Pulse Resp BP Pulse Ox 97.1 F L 71 20 140/62 94 L 06/21/17 00:21 06/21/17 00:21 06/21/17 00:21 06/21/17 00:21 06/21/17 00:21 Intake and Output: 06/21/17 06/21/17 06:59 18:59 Intake Total 660 Output Total 300 Balance 360 - Medications Medications: Current Medications Acetaminophen (Tylenol 325mg Tab) 650 mg PO Q6H PRN PRN Reason: Pain, moderate (4-7) Last Admin: 06/20/17 21:09 Dose: 650 mg Albuterol/Ipratropium (Duoneb 3 Mg/0.5 Mg (3 Ml) Ud) 3 ml IH [id number] [facility] Last Admin: 06/21/17 07:34 Dose: 3 ml Albuterol/Ipratropium (Duoneb 3 Mg/0.5 Mg (3 Ml) Ud) 3 ml IH Q2H PRN PRN Reason: Shortness of Breath Last Admin: 06/20/17 23:36 Dose: 3 ml Aspirin (Ecotrin) 81 mg PO DAILY [facility] Last Admin: 06/19/17 10:42 Dose: 81 mg Atorvastatin Calcium (Lipitor) 10 mg PO DAILY [facility] Last Admin: 06/20/17 10:29 Dose: Not Given Clopidogrel Bisulfate (Plavix) 75 mg PO DAILY [facility] Last Admin: 06/20/17 10:30 Dose: Not Given Heparin Sodium (Porcine) (Heparin) 5,000 units SC Q12 [facility] PRN Reason: Protocol Last Admin: 06/19/17 11:07 Dose: 5,000 units Hydralazine HCl (Apresoline) 10 mg IVP Q6 PRN PRN Reason: high blood pressure Ceftriaxone Sodium (Rocephin 1 Gram Ivpb) 1 gm in 100 mls @ 100 mls/hr IVPB DAILY [facility] PRN Reason: Protocol Last Admin: 06/20/17 18:28 Dose: 100 mls/hr Vancomycin HCl (Vancomycin 1gm) 1 gm in 250 mls @ 167 mls/hr IVPB DAILY [facility] PRN Reason: Protocol Last Admin: 06/20/17 21:11 Dose: 167 mls/hr Isosorbide Mononitrate (Imdur) 60 mg PO DAILY [facility] Last Admin: 06/20/17 10:07 Dose: Not Given Methylprednisolone (Solu-Medrol) 20 mg IVP Q12 [facility] Last Admin: 06/20/17 21:12 Dose: 20 mg Metoprolol Tartrate (Lopressor) 25 mg PO BID [facility] Last Admin: 06/20/17 18:29 Dose: 25 mg Mupirocin (Bactroban Ointment) 0 gm TOP BID [facility] Last Admin: 06/20/17 18:28 Dose: Not Given Pantoprazole Sodium (Protonix Susp) 40 mg GT 0600 [facility] Last Admin: 06/21/17 06:32 Dose: 40 mg - Labs Labs: 06/21/17 07:00 06/21/17 07:00 PT 14.7 Seconds (9.9-11.8) H 06/13/17 17:33 INR 1.36 (0.93-1.08) H 06/13/17 17:33 APTT 26.6 Seconds (23.7-30.8) 06/19/17 05:10 Attending/Attestation - Attestation I have personally seen and examined this patient.: Yes I have fully participated in the care of the patient.: Yes I have reviewed all pertinent clinical information, including history, physical exam and plan: Yes
--- NOTE | 2017-06-19 14:42 | CP.PCM.PN ---
Subjective - Date & Time of Evaluation Date of Evaluation: 06/19/17 Time of Evaluation: 14:40 - Subjective Subjective: Follow up Nephrology Consultation: Assessment: Stable Acute Hypercapnic respi failure s/p mechanical intubation, post-hypercapnic metabolic alkalosis Acute Kidney Injury (N17.9) likely due to dehydration as evident by Hypernatremia. Hyperkalemia: improved Hypertensive Chronic Kidney Disease (I12.9) Chronic Kidney Disease (N18.9) Stage 3 with 600 mg proteinuria (R80.9) possibly due to HTN/vasc disease HTN (I12.9), pulmonary fibrosis, chronic systolic CHF, bladder tumor, b/l kidney cysts Altered mental status NSTEMI Plan No acute need for renal replacement therapy at this time. Hypertension controlled with meds as ordered. Patient not on ACEI/ARB due to JASWINDER. At home he was on losartan 25 mg/day. can resume it at d/c. Monitor Input/Output, daily weights and renal function with basic metabolic panel Increase lasix to home dose of 40 mg/day considering his CXR and hx of CHF. GN serology with complement and ANCA neg. kidney biopsy not indicated. Dose meds/antibiotics for reduced GFR ~ 50. Avoid fleets enema/magnesium based laxatives. Avoid nephrotoxins/NSAIDs/ iodinated contrast (unless needed emergently) Glycemic control Further work up/management as per primary team Thanks for allowing me to participate in care of your patient. Will follow patient with you. Please call if any Qs. Dr Edvin Nj Office: [phone] Chief Complaint; none today HPI: Pt is a 87 y/o M with hx of CHF (EF 30-35%), COPD with pulmonary fibrosis, CKD stage 3 (baseline cr 1.1-1.4 mg/dL), HTN, bladder tumor came to ER with altered mental status and shortness of breath and intubated for hypercapnic respi failure, transferred to ICU, renal consult requested for hypernatremia and JASWINDER. got extubated 06/15/17. ROS: Pt feels better. denies CP/SOB/nausea/vomitting or pain abdomen. Physical Examination: General Appearance: Comfortable, in no acute respiratory distress. Vitals reviewed and noted as below Head; Atraumatic, normocephalic Neck; supple no lymphadenopathy, no thyromegaly or bruit Lungs: Normal respiratory rate/effort. Breath sounds bilateral with basal crackles Heart: Normal rate. s1s2 normal. No rub or gallop. SM at left sternal border Extremities: 1+ edema. No varicose veins. has chronic venous stasis changes. both legs dressed, known to have chronic leg wounds Neurological: Patient is alert awake and oriented today Skin: Warm and dry. Normal turgor. No rash. Palpitation: Normal elasticity for age. has upper extremity echymoses/swelling + Abdomen: Abdomen is soft. Bowel sounds +. There is no abdominal tenderness, no guarding/rigidity no organomegaly MSK: no joint tenderness or swelling. Digits and nails normal, no deformity : kidney or bladder not palpable. has catheter Labs/imaging/EKG reviewed. Past medical history, past surgical history, family history, social history, allergy reviewed and noted as below Family hx: Unable to obtain Work up UA done by me showed 30+ protein large blood and LE ++ SG 1.025. microscopy showed very few granular casts, numerous WBCs and also monomorphic RBCs renal sono 2016: b/l renal cysts Objective - Vital Signs/Intake and Output Vital Signs (last 24 hours): Temp Pulse Resp BP Pulse Ox 98.2 F 70 35 H 152/94 H 96 06/19/17 12:00 06/19/17 14:00 06/19/17 14:00 06/19/17 14:00 06/19/17 14:00 - Medications Medications: Current Medications Acetaminophen (Tylenol 325mg Tab) 650 mg PO Q6H PRN PRN Reason: Pain, moderate (4-7) Last Admin: 06/15/17 20:01 Dose: 650 mg Albuterol/Ipratropium (Duoneb 3 Mg/0.5 Mg (3 Ml) Ud) 3 ml IH [id number] [facility] Last Admin: 06/19/17 13:15 Dose: 3 ml Albuterol/Ipratropium (Duoneb 3 Mg/0.5 Mg (3 Ml) Ud) 3 ml IH Q2H PRN PRN Reason: Shortness of Breath Aspirin (Ecotrin) 81 mg PO DAILY [facility] Last Admin: 06/19/17 10:42 Dose: 81 mg Atorvastatin Calcium (Lipitor) 10 mg PO DAILY [facility] Last Admin: 06/19/17 10:42 Dose: 10 mg Clopidogrel Bisulfate (Plavix) 75 mg PO DAILY [facility] Last Admin: 06/19/17 10:42 Dose: 75 mg Furosemide (Lasix) 40 mg PO DAILY [facility] Heparin Sodium (Porcine) (Heparin) 5,000 units SC Q12 [facility] PRN Reason: Protocol Hydralazine HCl (Apresoline) 10 mg IVP Q6 PRN PRN Reason: high blood pressure Ceftriaxone Sodium (Rocephin 1 Gram Ivpb) 1 gm in 100 mls @ 100 mls/hr IVPB DAILY [facility] PRN Reason: Protocol Last Admin: 06/19/17 10:43 Dose: 100 mls/hr Vancomycin HCl (Vancomycin 1gm) 1 gm in 250 mls @ 167 mls/hr IVPB DAILY [facility] PRN Reason: Protocol Last Admin: 06/19/17 10:43 Dose: 167 mls/hr Isosorbide Mononitrate (Imdur) 60 mg PO DAILY [facility] Last Admin: 06/19/17 10:42 Dose: 60 mg Methylprednisolone (Solu-Medrol) 30 mg IVP Q12 [facility] Last Admin: 06/18/17 21:44 Dose: 30 mg Metoprolol Tartrate (Lopressor) 25 mg PO BID [facility] Last Admin: 06/19/17 10:42 Dose: 25 mg Mupirocin (Bactroban Ointment) 0 gm TOP BID [facility] Last Admin: 06/19/17 10:45 Dose: 1 applic Pantoprazole Sodium (Protonix Susp) 40 mg GT 0600 [facility] Last Admin: 06/19/17 05:15 Dose: 40 mg - Labs Labs: 06/19/17 05:10 06/19/17 05:10 PT 14.7 Seconds (9.9-11.8) H 06/13/17 17:33 INR 1.36 (0.93-1.08) H 06/13/17 17:33 APTT 26.6 Seconds (23.7-30.8) 06/19/17 05:10
[2017-06-19] MEDS ORDERED: Phenylephrine 10 mg/ml Inj ONE (15:10)
--- NOTE | 2017-06-19 15:45 | CP.PCM.PN ---
<GENTRY CSAEY - Last Filed: 06/19/17 15:41> Subjective - Date & Time of Evaluation Date of Evaluation: 06/19/17 Time of Evaluation: 07:30 - Subjective Subjective: Gentry Casey DO PGY1 - Medicine Progress Note Patient seen and examined at bedside. Nurse reports no acute events overnight. Patient denies any CP or SOB. Patient admits to still having some pain in b/l LE. He also denies abdominal pain, F/C, N/V/D/C. He is AAOx3 and is satting well on 3L NC. Surgery scheduled with podiatry on 06/20 for debridement of RLE nonviable tissue. Diffuse UE ecchymoses appear to be healing. Requesting a regular diet. Objective - Vital Signs/Intake and Output Vital Signs (last 24 hours): Temp Pulse Resp BP Pulse Ox 98.2 F 70 35 H 152/94 H 96 06/19/17 12:00 06/19/17 14:00 06/19/17 14:00 06/19/17 14:00 06/19/17 14:00 - Medications Medications: Current Medications Acetaminophen (Tylenol 325mg Tab) 650 mg PO Q6H PRN PRN Reason: Pain, moderate (4-7) Last Admin: 06/15/17 20:01 Dose: 650 mg Albuterol/Ipratropium (Duoneb 3 Mg/0.5 Mg (3 Ml) Ud) 3 ml IH [id number] [facility] Last Admin: 06/19/17 13:15 Dose: 3 ml Albuterol/Ipratropium (Duoneb 3 Mg/0.5 Mg (3 Ml) Ud) 3 ml IH Q2H PRN PRN Reason: Shortness of Breath Aspirin (Ecotrin) 81 mg PO DAILY [facility] Last Admin: 06/19/17 10:42 Dose: 81 mg Atorvastatin Calcium (Lipitor) 10 mg PO DAILY [facility] Last Admin: 06/19/17 10:42 Dose: 10 mg Clopidogrel Bisulfate (Plavix) 75 mg PO DAILY [facility] Last Admin: 06/19/17 10:42 Dose: 75 mg Furosemide (Lasix) 40 mg PO DAILY [facility] Heparin Sodium (Porcine) (Heparin) 5,000 units SC Q12 [facility] PRN Reason: Protocol Hydralazine HCl (Apresoline) 10 mg IVP Q6 PRN PRN Reason: high blood pressure Ceftriaxone Sodium (Rocephin 1 Gram Ivpb) 1 gm in 100 mls @ 100 mls/hr IVPB DAILY [facility] PRN Reason: Protocol Last Admin: 06/19/17 10:43 Dose: 100 mls/hr Vancomycin HCl (Vancomycin 1gm) 1 gm in 250 mls @ 167 mls/hr IVPB DAILY [facility] PRN Reason: Protocol Last Admin: 06/19/17 10:43 Dose: 167 mls/hr Isosorbide Mononitrate (Imdur) 60 mg PO DAILY [facility] Last Admin: 06/19/17 10:42 Dose: 60 mg Methylprednisolone (Solu-Medrol) 30 mg IVP Q12 [facility] Last Admin: 06/18/17 21:44 Dose: 30 mg Metoprolol Tartrate (Lopressor) 25 mg PO BID [facility] Last Admin: 06/19/17 10:42 Dose: 25 mg Mupirocin (Bactroban Ointment) 0 gm TOP BID [facility] Last Admin: 06/19/17 10:45 Dose: 1 applic Pantoprazole Sodium (Protonix Susp) 40 mg GT 0600 [facility] Last Admin: 06/19/17 05:15 Dose: 40 mg - Labs Labs: 06/19/17 05:10 06/19/17 05:10 PT 14.7 Seconds (9.9-11.8) H 06/13/17 17:33 INR 1.36 (0.93-1.08) H 06/13/17 17:33 APTT 26.6 Seconds (23.7-30.8) 06/19/17 05:10 - Constitutional Appears: Non-toxic, No Acute Distress, Chronically Ill - Head Exam Head Exam: ATRAUMATIC, NORMOCEPHALIC - Eye Exam Eye Exam: EOMI, Normal appearance, PERRL - ENT Exam ENT Exam: Mucous Membranes Moist Additional comments: Edentulous - Neck Exam Neck Exam: absent: Lymphadenopathy, Thyromegaly - Respiratory Exam Respiratory Exam: Rhonchi (mild, diffuse) - Cardiovascular Exam Cardiovascular Exam: RRR, +S1, +S2 - GI/Abdominal Exam GI & Abdominal Exam: Soft. absent: Firm, Guarding, Rigid, Tenderness Additional comments: Hyperresonant, mildly distended - Extremities Exam Additional comments: B/L lower extremities bandaged circumfrentially from ankles to knees, dressings appear CDI. Mild erythema and trace edema noted in b/l ankles and feet - Neurological Exam Neurological Exam: Alert, Awake, Oriented x3 - Psychiatric Exam Psychiatric exam: Normal Affect, Normal Mood - Skin Additional comments: B/L forearms large erythematous plaques with 1-2 small bullae on each arm, with disseminated echymoses, likely 2/2 heparin drip and multiple venipunctures daily. Echymoses appear to be healing, no new echymoses since yesterday. Assessment and Plan - Assessment and Plan (Free Text) Assessment: This is an 87 yo M with PMH of COPD, CHF (30% --> 17% EF), Paget's disease, and HTN who presented with AMS and hypercapnic respiratory failure requiring intubation/mechanical ventilation. Pt is 5 days s/p extubation, AAOx3 , following commands and mentating well. Remains on IV abx for b/l LE cellulitis positive for MRSA. Plan: 1) Acute Hypercapnic Respiratory Failure: Resolved -2/2 CHF exacerbation in setting of NSTEMI and history of severe COPD -5 days s/p extubation, tolerating well -Head CT negative for acute stroke -continue Solumedrol 30mg IV Q12H - tapering down - Nebs Q6H tomer/Q2 prn, as per Pulm -Satting well on O2 NC, maintain SaO2 88-95%, avoid persistently elevated SaO2 to prevent suppression of respiratory drive in COPD pt -Elevated trops on admission, max of 1.16, now downtrending; as per cardio, consistent with acute OR -Continue Metoprolol, Imdur, Statin, ASA, Plavix -Heparin drip d/c'd yesterday per cardio, will continue with conservative management at this time, no new stress test. No longer telemetry status, downgraded to med/surg -Cardio (Santa), Neuro (Cindi Castro), and Pulm (Jayy) consulted, appreciate all recs 2) Altered Mental Status: Resolved -2/2 Hypercapnic resp failure vs Sepsis from LE cellulitis vs ACS -Head CT: small hypodense lacunar infarct within the left cerebellar lobe, considered to be subacute -UDS (+) benzos, no benzos listed in home medication charting -MRI showing chronic microvascular changes, MRA unremarkable -EEG completed, f/u read -Blood cx showing no growth x 5 days, urine cx no growth -Wound cxs: +MRSA, Right leg WCX: E.Coli, Staph. 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 Aureus (Resistant to PCN but Oxa sensitive); Left leg WCX: Klebsella Oxytosa, Staph Aureus -Rocephin and vanc -Patient is up for surgery 06/20 for debridement of RLE wound nonviable tissue with podiatry 5) Congestive Heart Failure (Systolic) -Continue home meds -Strict I&O's -Daily weights -Cardio consulted, appreciate all recs 6) Acute Kidney Injury: stable -renal fcn stable, baseline Cr per charting 1.1-1.4, currently 1.5 -monitor I&Os -Nephro (Wise) consulted, appreciate all recs 7) Hypertension -continue Lopressor 5mg Q8H, Hydralazine 10mg Q6H PRN Ppx: Heparin SQ for DVT, Protonix for GI Patient reviewed and discussed with attending <Stephanie Julien - Last Filed: 06/20/17 17:04> Objective - Vital Signs/Intake and Output Vital Signs (last 24 hours): Temp Pulse Resp BP Pulse Ox 97.9 F 68 18 131/61 94 L 06/20/17 11:58 06/20/17 11:58 06/20/17 11:58 06/20/17 11:58 06/20/17 11:58 Intake and Output: 06/20/17 06/20/17 06:59 18:59 Intake Total 1250 640 Output Total 950 400 Balance 300 240 - Medications Medications: Current Medications Acetaminophen (Tylenol 325mg Tab) 650 mg PO Q6H PRN PRN Reason: Pain, moderate (4-7) Last Admin: 06/15/17 20:01 Dose: 650 mg Albuterol/Ipratropium (Duoneb 3 Mg/0.5 Mg (3 Ml) Ud) 3 ml IH [id number] [facility] Last Admin: 06/20/17 13:24 Dose: 3 ml Albuterol/Ipratropium (Duoneb 3 Mg/0.5 Mg (3 Ml) Ud) 3 ml IH Q2H PRN PRN Reason: Shortness of Breath Aspirin (Ecotrin) 81 mg PO DAILY [facility] Last Admin: 06/19/17 10:42 Dose: 81 mg Atorvastatin Calcium (Lipitor) 10 mg PO DAILY [facility] Last Admin: 06/19/17 10:42 Dose: 10 mg Clopidogrel Bisulfate (Plavix) 75 mg PO DAILY [facility] Last Admin: 06/19/17 10:42 Dose: 75 mg Heparin Sodium (Porcine) (Heparin) 5,000 units SC Q12 [facility] PRN Reason: Protocol Last Admin: 06/19/17 11:07 Dose: 5,000 units Hydralazine HCl (Apresoline) 10 mg IVP Q6 PRN PRN Reason: high blood pressure Ceftriaxone Sodium (Rocephin 1 Gram Ivpb) 1 gm in 100 mls @ 100 mls/hr IVPB DAILY [facility] PRN Reason: Protocol Last Admin: 06/19/17 10:43 Dose: 100 mls/hr Vancomycin HCl (Vancomycin 1gm) 1 gm in 250 mls @ 167 mls/hr IVPB DAILY [facility] PRN Reason: Protocol Last Admin: 06/19/17 10:43 Dose: 167 mls/hr Isosorbide Mononitrate (Imdur) 60 mg PO DAILY [facility] Last Admin: 06/20/17 10:07 Dose: Not Given Methylprednisolone (Solu-Medrol) 20 mg IVP Q12 [facility] Metoprolol Tartrate (Lopressor) 25 mg PO BID [facility] Last Admin: 06/20/17 09:40 Dose: 25 mg Mupirocin (Bactroban Ointment) 0 gm TOP BID [facility] Last Admin: 06/20/17 10:09 Dose: Not Given Pantoprazole Sodium (Protonix Susp) 40 mg GT 0600 [facility] Last Admin: 06/19/17 05:15 Dose: 40 mg - Labs Labs: 06/20/17 07:30 06/20/17 07:30 PT 14.7 Seconds (9.9-11.8) H 06/13/17 17:33 INR 1.36 (0.93-1.08) H 06/13/17 17:33 APTT 26.6 Seconds (23.7-30.8) 06/19/17 05:10 Attending/Attestation - Attestation I have personally seen and examined this patient.: Yes I have fully participated in the care of the patient.: Yes I have reviewed all pertinent clinical information, including history, physical exam and plan: Yes Notes (Text): I have seen and examined the patient at bedside. Agree with the above note with the following additions/ exceptions: Briefly this is 87 year old male with history of COPD, CHF EF of 17%, Paget's disease, HTN who presented with AMS and found to have hypercapnic respiratory failure secondary to COPD exacerbation vs. electrolyte abnormality.He also had troponin elevation most likely due to demand ischemia in respiratory arrest. Patient is awake , alert and oriented x3. There are no focal deficits. He is on 2L NC. He is on tapering dose of steroids as per pulmonary. He has chronic leg ulceration. Wound cultures noted and he is on vanco and rocephin. Patient is scheduled for debridement on 06/20. Conservative management as per cardio. JASWINDER is improving. Nephro on board. Upon discharge patient will follow up with Dr Ferrari. Dr Stephanie Julien
[2017-06-19 15:58] LABS: FREE KAPPA SERUM 42.1 mg/L (3.3-19.4); FREE LAMBDA SERUM 32.5 mg/L (5.7-26.3)
--- NOTE | 2017-06-19 18:26 | CP.PCM.PN ---
Subjective - Date & Time of Evaluation Date of Evaluation: 06/19/17 Time of Evaluation: 17:30 - Subjective Subjective: Infectious Disease Follow Up: June 19, 2017 87 yo male brought in for lethargy and AMS. The patient has an extensive medical history that includes COPD, CHF last known EF of 30-35% in 08/2016, HTN , Paget's disease and PAD. The patient required intubation and ventilation [place] [facility] [place] He has been extubated now. Extubated now and feeling better. He is much more awake and alert today. No major complaints. He does complain of bilateral lower extremity pain. For OR tomorrow for debridement of the lower extremities. Objective - Vital Signs/Intake and Output Vital Signs (last 24 hours): Temp Pulse Resp BP Pulse Ox 98.2 F 73 35 H 138/50 L 96 06/19/17 12:00 06/19/17 18:10 06/19/17 14:00 06/19/17 18:10 06/19/17 14:00 - Medications Medications: Current Medications Acetaminophen (Tylenol 325mg Tab) 650 mg PO Q6H PRN PRN Reason: Pain, moderate (4-7) Last Admin: 06/15/17 20:01 Dose: 650 mg Albuterol/Ipratropium (Duoneb 3 Mg/0.5 Mg (3 Ml) Ud) 3 ml IH [id number] [facility] Last Admin: 06/19/17 13:15 Dose: 3 ml Albuterol/Ipratropium (Duoneb 3 Mg/0.5 Mg (3 Ml) Ud) 3 ml IH Q2H PRN PRN Reason: Shortness of Breath Aspirin (Ecotrin) 81 mg PO DAILY [facility] Last Admin: 06/19/17 10:42 Dose: 81 mg Atorvastatin Calcium (Lipitor) 10 mg PO DAILY [facility] Last Admin: 06/19/17 10:42 Dose: 10 mg Clopidogrel Bisulfate (Plavix) 75 mg PO DAILY [facility] Last Admin: 06/19/17 10:42 Dose: 75 mg Furosemide (Lasix) 40 mg PO DAILY [facility] Last Admin: 06/19/17 18:05 Dose: 40 mg Heparin Sodium (Porcine) (Heparin) 5,000 units SC Q12 [facility] PRN Reason: Protocol Last Admin: 06/19/17 11:07 Dose: 5,000 units Hydralazine HCl (Apresoline) 10 mg IVP Q6 PRN PRN Reason: high blood pressure Ceftriaxone Sodium (Rocephin 1 Gram Ivpb) 1 gm in 100 mls @ 100 mls/hr IVPB DAILY [facility] PRN Reason: Protocol Last Admin: 06/19/17 10:43 Dose: 100 mls/hr Vancomycin HCl (Vancomycin 1gm) 1 gm in 250 mls @ 167 mls/hr IVPB DAILY [facility] PRN Reason: Protocol Last Admin: 06/19/17 10:43 Dose: 167 mls/hr Isosorbide Mononitrate (Imdur) 60 mg PO DAILY [facility] Last Admin: 06/19/17 10:42 Dose: 60 mg Methylprednisolone (Solu-Medrol) 30 mg IVP Q12 [facility] Last Admin: 06/19/17 11:00 Dose: 30 mg Metoprolol Tartrate (Lopressor) 25 mg PO BID [facility] Last Admin: 06/19/17 18:10 Dose: 25 mg Mupirocin (Bactroban Ointment) 0 gm TOP BID [facility] Last Admin: 06/19/17 18:01 Dose: 1 applic Pantoprazole Sodium (Protonix Susp) 40 mg GT 0600 [facility] Last Admin: 06/19/17 05:15 Dose: 40 mg - Labs Labs: 06/19/17 05:10 06/19/17 05:10 PT 14.7 Seconds (9.9-11.8) H 06/13/17 17:33 INR 1.36 (0.93-1.08) H 06/13/17 17:33 APTT 26.6 Seconds (23.7-30.8) 06/19/17 05:10 - Constitutional Appears: Non-toxic, No Acute Distress, Chronically Ill - Head Exam Head Exam: ATRAUMATIC, NORMOCEPHALIC - Eye Exam Eye Exam: EOMI, PERRL Pupil Exam: NORMAL ACCOMODATION, PERRL - ENT Exam ENT Exam: Mucous Membranes Moist, Normal External Ear Exam, TM's Normal Bilaterally - Neck Exam Neck Exam: Full ROM, Normal Inspection - Respiratory Exam Respiratory Exam: Clear to Ausculation Bilateral, NORMAL BREATHING PATTERN. absent: Rales, Rhonchi, Wheezes - Cardiovascular Exam Cardiovascular Exam: REGULAR RHYTHM, RRR, +S1, +S2 - GI/Abdominal Exam GI & Abdominal Exam: Soft, Normal Bowel Sounds. absent: Distended, Tenderness - Extremities Exam Additional comments: +Heel protectors +Venous stasis skin changes B/L LE wrapped with curlex mild cellulitis of the bilateral lower extremities and chronic venous stasis. open ulcerations on the bilateral legs anteriorly. wounds are malodorous. - Neurological Exam Neurological Exam: Alert, Awake, CN II-XII Intact, Oriented x3 - Psychiatric Exam Psychiatric exam: Normal Affect, Normal Mood - Skin Additional comments: as above. Assessment and Plan - Assessment and Plan (Free Text) Assessment: 87 yo male with AMS and lethargy. Etiology unclear. Broad spectrum coverage for now with Rocephin and Vancomycin treatment. Ignacio cultures. Imaging studies. Patient was intubated and ventilated but was extubated recently. Remains in ICU currently. He is more awake and alert now. Overall improving. Supportive care. Obtain procalcitonin... which was 0.48 which is normal. Follow up WBC and fever trend. Urine drug screen positive for Benzodiazepine. Respiratory failure. Renal insufficiency (acute or chronic?). Patient has a history of hypertension and systolic congestive heart failure. Patient improving and is mentally back to his normal state at this time. His only complaint is of bilateral lower leg pains. Possibly going to the OR on Sunday for debridement of unhealthy tissue of the legs. No additional issues. Thank you for allowing me to participate in the care of the patient, we will follow with you.
--- NOTE | 2017-06-19 18:29 | EEG ---
DATE: 06/19/2017 CONDITION OF THE RECORDING: Drowsy. DIAGNOSIS: Altered mental status. MEDICATIONS: Reviewed by nurse per reconciliation sheet. INTERPRETATION: This is a 16-channel international recording. The background activity was composed of 6 to 7 cycles per second. There was a small amount of beta activity 16 to 20 cycles per second seen in this recording. There was increased amount of theta activity 5 to 7 cycles per second seen in this tracing. Drowsiness was characterized by mixed beta and theta activities and sleep was characterized by vertex transient, sleep spindle, bilateral slowing. Photic stimulation showed no change in the tracing. No paroxysmal activity and no evidence of recording. CONCLUSION: Abnormal EEG due to presence of mild diffuse slowing, drowsy EEG consistent with bilateral cerebral dysfunction. No evidence of any epileptiform activity. Please clinically correlate. Shakeel Castro MD
--- NOTE | 2017-06-19 18:50 | CP.PCM.PN ---
<Bernard Carrington - Last Filed: 06/19/17 18:45> Subjective - Date & Time of Evaluation Date of Evaluation: 06/19/17 Time of Evaluation: 09:20 - Subjective Subjective: Neurology Progress Note for Dr. Castro Service Patient seen and examined at bedside. No acute events reported overnight. Patient resting comfortably in bed. Patient is Awake, alert, and oriented x3 ( self, location, year), but easily loses focus and requires repeated re- orientation/re-instruction. Denies any acute complaints, including shortness of breath, chest pain, fevers/chills, nausea/emesis, diarrhea/constipation, hematuria, or focal weakness. States his breathing "feels fine," denies any difficulty or pain with respirations, and is not dyspnic with speech. Objective - Vital Signs/Intake and Output Vital Signs (last 24 hours): Temp Pulse Resp BP Pulse Ox 98.2 F 73 35 H 138/50 L 96 06/19/17 12:00 06/19/17 18:10 06/19/17 14:00 06/19/17 18:10 06/19/17 14:00 - Medications Medications: Current Medications Acetaminophen (Tylenol 325mg Tab) 650 mg PO Q6H PRN PRN Reason: Pain, moderate (4-7) Last Admin: 06/15/17 20:01 Dose: 650 mg Albuterol/Ipratropium (Duoneb 3 Mg/0.5 Mg (3 Ml) Ud) 3 ml IH [id number] [facility] Last Admin: 06/19/17 13:15 Dose: 3 ml Albuterol/Ipratropium (Duoneb 3 Mg/0.5 Mg (3 Ml) Ud) 3 ml IH Q2H PRN PRN Reason: Shortness of Breath Aspirin (Ecotrin) 81 mg PO DAILY [facility] Last Admin: 06/19/17 10:42 Dose: 81 mg Atorvastatin Calcium (Lipitor) 10 mg PO DAILY [facility] Last Admin: 06/19/17 10:42 Dose: 10 mg Clopidogrel Bisulfate (Plavix) 75 mg PO DAILY [facility] Last Admin: 06/19/17 10:42 Dose: 75 mg Furosemide (Lasix) 40 mg PO DAILY [facility] Last Admin: 06/19/17 18:05 Dose: 40 mg Heparin Sodium (Porcine) (Heparin) 5,000 units SC Q12 [facility] PRN Reason: Protocol Last Admin: 06/19/17 11:07 Dose: 5,000 units Hydralazine HCl (Apresoline) 10 mg IVP Q6 PRN PRN Reason: high blood pressure Ceftriaxone Sodium (Rocephin 1 Gram Ivpb) 1 gm in 100 mls @ 100 mls/hr IVPB DAILY [facility] PRN Reason: Protocol Last Admin: 06/19/17 10:43 Dose: 100 mls/hr Vancomycin HCl (Vancomycin 1gm) 1 gm in 250 mls @ 167 mls/hr IVPB DAILY [facility] PRN Reason: Protocol Last Admin: 06/19/17 10:43 Dose: 167 mls/hr Isosorbide Mononitrate (Imdur) 60 mg PO DAILY [facility] Last Admin: 06/19/17 10:42 Dose: 60 mg Methylprednisolone (Solu-Medrol) 30 mg IVP Q12 [facility] Last Admin: 06/19/17 11:00 Dose: 30 mg Metoprolol Tartrate (Lopressor) 25 mg PO BID [facility] Last Admin: 06/19/17 18:10 Dose: 25 mg Mupirocin (Bactroban Ointment) 0 gm TOP BID [facility] Last Admin: 06/19/17 18:01 Dose: 1 applic Pantoprazole Sodium (Protonix Susp) 40 mg GT 0600 [facility] Last Admin: 06/19/17 05:15 Dose: 40 mg - Labs Labs: 06/19/17 05:10 06/19/17 05:10 PT 14.7 Seconds (9.9-11.8) H 06/13/17 17:33 INR 1.36 (0.93-1.08) H 06/13/17 17:33 APTT 26.6 Seconds (23.7-30.8) 06/19/17 05:10 - Additional Findings Additional findings: - Constitutional Appears: No Acute Distress, Resting comfortably in bed - Head Exam Head Exam: ATRAUMATIC, NORMAL INSPECTION, NORMOCEPHALIC - Eye Exam Eye Exam: EOMI, Normal appearance, PERRL. Absent: scleral icterus, conjunctival injection Pupil Exam: PERRL, Normal Accommodation. Absent: Irregular, Unequal, Pinpoint - ENT Exam ENT Exam: Mucous Membranes Moist, Normal Exam - Neck Exam Neck Exam: Full ROM, No meningeal signs, Normal inspection - Respiratory Exam Respiratory Exam: Decreased breath sounds (mild decreased breath sounds diffusely) but otherwise clear to auscultation bilaterally, Normal Breathing Pattern. Absent: Tachypnea, Wheezing, Ronchi, Rales, Gautam Cyanosis, Dyspnea - Cardiovascular Exam Cardiovascular Exam: RRR, +S1, +S2. absent: Murmur, Tachycardia, Bradycardia, JVD - GI/Abdominal Exam GI & Abdominal Exam: Firm (but not rigid, no guarding), Normal Bowel Sounds. absent: Soft, Tenderness, Rigid, Pulsatile Mass - Extremities Exam Extremities Exam: Extensive bruising along bilateral upper extremities at site of blood pressure cuff and sites of blood draws, some discoloration of skin on bilateral LE, ulcerations covered with bandages on bilateral LE between ankles and knees, unable to palpate bilateral dorsalis pedis pulses, no pitting edema in foot or above bandaging - Neurological Exam Neurological Exam: Alert, Awake, Oriented to Self/Location/Year, Requires frequent re-orientation/re-instruction as easily loses focus, Following all commands appropriately, moving all extremities spontaneously and on command - Psychiatric Exam Psychiatric exam: Wandering speech but not illogical, Normal Affect, Normal Mood - Skin Skin Exam: Dry, Extensive discoloration as documented in Extremities exam, Warm , Ulcerations on bilateral LE (bandaged) between ankles and knees Assessment and Plan - Assessment and Plan (Free Text) Assessment: This is an 87 yo M with PMH of COPD, CHF (30% --> 17% EF), Paget's disease, and HTN who presented with AMS and hypercapnic respiratory failure requiring intubation/mechanical ventilation. Pt is 4 days s/p extubation, AAOx3 , following commands and mentating well. AMS 2/2 metabolic encephalopathy with underlying LE cellulitis growing E coli. Plan: 1) Asa 81mg/Plavix 75mg/Lipitor 10mg PO daily for stroke prevention and given Peripheral artery disease 2) Avoid sedating meds 3) EEG obtained: mild diffuse slowing, drowsy EEG consistent with bilateral cerebral dysfunction; no evidence of epileptiform activity 4) PT/OT eval Please reconsult if patient experiences changes in condition. <Shakeel Castro - Last Filed: 06/20/17 11:13> Objective - Vital Signs/Intake and Output Vital Signs (last 24 hours): Temp Pulse Resp BP Pulse Ox 98.1 F 76 20 165/82 H 95 06/20/17 10:28 06/20/17 10:28 06/20/17 10:28 06/20/17 10:28 06/20/17 10:28 Intake and Output: 06/20/17 06/20/17 06:59 18:59 Intake Total 1250 0 Output Total 950 Balance 300 0 - Medications Medications: Current Medications Acetaminophen (Tylenol 325mg Tab) 650 mg PO Q6H PRN PRN Reason: Pain, moderate (4-7) Last Admin: 06/15/17 20:01 Dose: 650 mg Albuterol/Ipratropium (Duoneb 3 Mg/0.5 Mg (3 Ml) Ud) 3 ml IH [id number] [facility] Last Admin: 06/20/17 07:16 Dose: 3 ml Albuterol/Ipratropium (Duoneb 3 Mg/0.5 Mg (3 Ml) Ud) 3 ml IH Q2H PRN PRN Reason: Shortness of Breath Aspirin (Ecotrin) 81 mg PO DAILY [facility] Last Admin: 06/19/17 10:42 Dose: 81 mg Atorvastatin Calcium (Lipitor) 10 mg PO DAILY [facility] Last Admin: 06/19/17 10:42 Dose: 10 mg Clopidogrel Bisulfate (Plavix) 75 mg PO DAILY [facility] Last Admin: 06/19/17 10:42 Dose: 75 mg Heparin Sodium (Porcine) (Heparin) 5,000 units SC Q12 [facility] PRN Reason: Protocol Last Admin: 06/19/17 11:07 Dose: 5,000 units Hydralazine HCl (Apresoline) 10 mg IVP Q6 PRN PRN Reason: high blood pressure Ceftriaxone Sodium (Rocephin 1 Gram Ivpb) 1 gm in 100 mls @ 100 mls/hr IVPB DAILY [facility] PRN Reason: Protocol Last Admin: 06/19/17 10:43 Dose: 100 mls/hr Vancomycin HCl (Vancomycin 1gm) 1 gm in 250 mls @ 167 mls/hr IVPB DAILY [facility] PRN Reason: Protocol Last Admin: 06/19/17 10:43 Dose: 167 mls/hr Isosorbide Mononitrate (Imdur) 60 mg PO DAILY [facility] Last Admin: 06/20/17 10:07 Dose: Not Given Methylprednisolone (Solu-Medrol) 20 mg IVP Q12 [facility] Metoprolol Tartrate (Lopressor) 25 mg PO BID [facility] Last Admin: 06/20/17 09:40 Dose: 25 mg Mupirocin (Bactroban Ointment) 0 gm TOP BID [facility] Last Admin: 06/20/17 10:09 Dose: Not Given Pantoprazole Sodium (Protonix Susp) 40 mg GT 0600 [facility] Last Admin: 06/19/17 05:15 Dose: 40 mg - Labs Labs: 06/20/17 07:30 06/20/17 07:30 PT 14.7 Seconds (9.9-11.8) H 06/13/17 17:33 INR 1.36 (0.93-1.08) H 06/13/17 17:33 APTT 26.6 Seconds (23.7-30.8) 06/19/17 05:10 Attending/Attestation - Attestation I have personally seen and examined this patient.: Yes I have fully participated in the care of the patient.: Yes I have reviewed all pertinent clinical information, including history, physical exam and plan: Yes
--- NOTE | 2017-06-20 00:54 | PN ---
DATE: 06/19/2017 SUBJECTIVE: The patient is seen, sitting in bed in the CCU. He is comfortable at the present time. He denies any dyspnea. He has had no chest pain. MEDICATIONS: His current medications include hydralazine p.r.n., DuoNeb inhaler, Ecotrin, subcutaneous heparin, Imdur 60 mg daily, Lasix 40 mg daily, Lipitor 10 mg daily, metoprolol 25 mg b.i.d., Plavix 75 mg daily, Protonix, Rocephin, Solu-Medrol 30 mg q. 12 hours, and vancomycin 1 g daily. PHYSICAL EXAMINATION: GENERAL: He is an elderly male, who appears comfortable at present. VITAL SIGNS: Blood pressure is 160/60 with a pulse of 84 and sinus, respirations are 14, and he is afebrile. HEENT: He had no JVD. CHEST: Bilateral scattered rhonchi. HEART: PMI displaced laterally with soft tones present and systolic murmur in the lower left sternal border. ABDOMEN: Soft and nontender with normoactive bowel sounds. EXTREMITIES: Both lower extremities are wrapped with gauze dressing. DIAGNOSTIC DATA: Potassium 5.2, BUN and creatinine 49 and 1.5. Hemoglobin and hematocrit 12.8 and 40.7, white count of 8.0, and platelet count is 138,000. IMPRESSION: 1. Recent respiratory failure, clinically improved. 2. Bilateral leg cellulitis with evidence of Klebsiella and Staphylococcus aureus present. 3. Severe left ventricular systolic dysfunction. 4. Moderately severe aortic insufficiency. 5. Mild aortic stenosis. 6. Moderately severe mitral regurgitation. 7. Coronary artery disease, status post remote myocardial infarction. RECOMMENDATIONS: At this time, continuing conservative management appears most appropriate with respect to his coronary artery disease. No further testing is planned at the present time. His recent borderline troponin elevation may not have been a true infarct, but rather secondary to demand ischemia in the setting of respiratory distress. We will be happy to follow along as needed. Seth Gomez MD
[2017-06-20] MEDS: Albuterol-Ipratrop 3 mg / 0.5 (3 ml) UD IH SCH ×4 (01:50→20:48)
--- NOTE | 2017-06-20 07:42 | CP.PCM.PN ---
<Hollis Montoya - Last Filed: 06/20/17 07:36> Subjective - Date & Time of Evaluation Date of Evaluation: 06/20/17 Time of Evaluation: 06:40 - Subjective Subjective: 87 year old male patient with PMHx Paget's disease seen at bedside for pre- operative evaluation for right leg wound debridement. Patient is seen resting comfortably, confused but NAD. Patient reports continued pain to bilateral lower extremities. Patient is aware that he is having surgery this morning, and states that the surgical plan was explained to him yesterday. NPO status confirmed. Patient denies N/V/F/D/C/SOB/calf pain. No other pedal complaints at this time. Objective - Vital Signs/Intake and Output Vital Signs (last 24 hours): Temp Pulse Resp BP Pulse Ox 98.5 F 65 16 132/66 99 06/19/17 16:00 06/19/17 22:40 06/19/17 22:40 06/19/17 22:00 06/19/17 22:40 Intake and Output: 06/20/17 06/20/17 06:59 18:59 Intake Total 1250 Output Total 950 Balance 300 - Medications Medications: Current Medications Acetaminophen (Tylenol 325mg Tab) 650 mg PO Q6H PRN PRN Reason: Pain, moderate (4-7) Last Admin: 06/15/17 20:01 Dose: 650 mg Albuterol/Ipratropium (Duoneb 3 Mg/0.5 Mg (3 Ml) Ud) 3 ml IH [id number] [facility] Last Admin: 06/20/17 07:16 Dose: 3 ml Albuterol/Ipratropium (Duoneb 3 Mg/0.5 Mg (3 Ml) Ud) 3 ml IH Q2H PRN PRN Reason: Shortness of Breath Aspirin (Ecotrin) 81 mg PO DAILY [facility] Last Admin: 06/19/17 10:42 Dose: 81 mg Atorvastatin Calcium (Lipitor) 10 mg PO DAILY [facility] Last Admin: 06/19/17 10:42 Dose: 10 mg Clopidogrel Bisulfate (Plavix) 75 mg PO DAILY [facility] Last Admin: 06/19/17 10:42 Dose: 75 mg Furosemide (Lasix) 40 mg PO DAILY [facility] Last Admin: 06/19/17 18:05 Dose: 40 mg Heparin Sodium (Porcine) (Heparin) 5,000 units SC Q12 [facility] PRN Reason: Protocol Last Admin: 06/19/17 11:07 Dose: 5,000 units Hydralazine HCl (Apresoline) 10 mg IVP Q6 PRN PRN Reason: high blood pressure Ceftriaxone Sodium (Rocephin 1 Gram Ivpb) 1 gm in 100 mls @ 100 mls/hr IVPB DAILY [facility] PRN Reason: Protocol Last Admin: 06/19/17 10:43 Dose: 100 mls/hr Vancomycin HCl (Vancomycin 1gm) 1 gm in 250 mls @ 167 mls/hr IVPB DAILY [facility] PRN Reason: Protocol Last Admin: 06/19/17 10:43 Dose: 167 mls/hr Isosorbide Mononitrate (Imdur) 60 mg PO DAILY [facility] Last Admin: 06/19/17 10:42 Dose: 60 mg Methylprednisolone (Solu-Medrol) 20 mg IVP Q12 [facility] Metoprolol Tartrate (Lopressor) 25 mg PO BID [facility] Last Admin: 06/19/17 18:10 Dose: 25 mg Mupirocin (Bactroban Ointment) 0 gm TOP BID [facility] Last Admin: 06/19/17 18:01 Dose: 1 applic Pantoprazole Sodium (Protonix Susp) 40 mg GT 0600 [facility] Last Admin: 06/19/17 05:15 Dose: 40 mg - Labs Labs: 06/19/17 05:10 06/19/17 05:10 PT 14.7 Seconds (9.9-11.8) H 06/13/17 17:33 INR 1.36 (0.93-1.08) H 06/13/17 17:33 APTT 26.6 Seconds (23.7-30.8) 06/19/17 05:10 - Constitutional Appears: Well, Non-toxic, No Acute Distress, Confused - Extremities Exam Additional comments: Dressing to bilateral lower extremities appear clean, dry, and intact - Neurological Exam Neurological Exam: Alert, Awake, Oriented x3 - Psychiatric Exam Psychiatric exam: Normal Affect, Normal Mood Assessment and Plan - Assessment and Plan (Free Text) Assessment: 87 yo male patient presenting with infected ulcerations to anterior aspect of bilateral legs Right worse than Left Plan: Pt was seen and examined at bedside Discussed with attending, Dr. Buitrago Pt NPO status was confirmed All Pre-op testing and clearance was in the chart Consent form was signed and placed in chart Pt has exhausted all conservative treatment at this time and is opting for surgical intervention To OR today for right leg wound debridement Pt was explained procedure and post-operative course All pt's questions were answered to satisfaction No guarantees were made Pt understands all risks, benefits and complications of procedure Pt will follow-up with Dr. Buitrago Podiatry will continue to follow while in house <Siri Buitrago - Last Filed: 06/24/17 19:57> Objective - Vital Signs/Intake and Output Vital Signs (last 24 hours): Temp Pulse Resp BP Pulse Ox 97.6 F 69 18 180/78 H 94 L 06/23/17 07:30 06/23/17 09:56 06/23/17 07:30 06/23/17 09:56 06/23/17 07:30 - Labs Labs: 06/23/17 10:30 06/23/17 10:30 PT 14.7 Seconds (9.9-11.8) H 06/13/17 17:33 INR 1.36 (0.93-1.08) H 06/13/17 17:33 APTT 26.6 Seconds (23.7-30.8) 06/19/17 05:10
[2017-06-20 07:46] LABS: GRAN # 8.12 (1.4-6.5); GRAN % 90.5 % (50.0-68.0); HEMATOCRIT 39.3 % (42.0-52.0); LYMPH # 0.4 (1.2-3.4); LYMPH % 4.2 % (22.0-35.0); MEAN CORPUSCULAR HEMOGLOBIN 28.5 pg (25.0-35.0); MEAN CORPUSCULAR HGB CONC 31.3 g/dl (31.0-37.0); MEAN PLATELET VOLUME 10.9 fl (7.0-11.0); MONO # 0.5 (0.1-0.6); MONO % 5.3 % (1.0-6.0); RED CELL DISTRIBUTION WIDTH 17.2 % (11.5-14.5)
[2017-06-20 07:58] LABS: BILIRUBIN,TOTAL 0.9 mg/dL (0.2-1.3); POTASSIUM 5.5 mmol/L (3.6-5.0); TOTAL PROTEIN 6.2 g/dL (5.8-8.3)
--- NOTE | 2017-06-20 09:10 | RAD ---
HISTORY: follow up COMPARISON: Portable chest 06/19/2017 FINDINGS: LUNGS: Yary change in mid to inferior left-sided infiltrate or atelectasis. Linear atelectasis is again seen the right chest or fissural fluid PE PLEURA: Small bilateral pleural effusions are unchanged. No pneumothorax bilaterally. CARDIOVASCULAR: Cardiomegaly is unchanged. Mild pulmonary venous congestion again appreciated. OSSEOUS STRUCTURES: No significant abnormalities. VISUALIZED UPPER ABDOMEN: Normal. OTHER FINDINGS: None. IMPRESSION: Stable left-sided infiltrates, bilateral limited pleural effusions and pulmonary venous congestion. No significant interval change compared to 06/19/2017.
--- NOTE | 2017-06-20 09:26 | PN ---
DATE: 06/20/2017 PULMONARY PROGRESS NOTE SUBJECTIVE: The patient appears comfortable this morning. He is not short of breath at rest. PHYSICAL EXAMINATION: VITAL SIGNS: Temperature is 98.5, pulse is 65, respirations are 16, blood pressure is 132/66, and oxygen saturation on nasal cannula is 99%. HEENT: Normocephalic and atraumatic. NECK: No JVD. CARDIOVASCULAR: Systolic ejection murmur at the low left sternal border. No S3 gallop. LUNGS: Decreased breath sounds at the bases. Minimal/less rhonchi. No wheezing. EXTREMITIES: Mild edema. No cyanosis. No clubbing. Calves are nontender to palpation. GASTROINTESTINAL: Abdomen is soft, nontender, and nondistended. Bowel sounds are positive. SKIN: Chronic cellulitic changes on both lower extremities. NEUROLOGICAL: Exam is limited at the present time. IMPRESSION: 1. Status post respiratory failure. 2. Subacute cerebrovascular accident. 3. Chronic obstructive pulmonary disease. 4. Bilateral pneumonia. 5. Myocardial infarction. 6. Renal insufficiency. 7. Electrolyte abnormalities. PLAN: The patient appears very comfortable this morning. He is not short of breath at rest. He states that he is feeling much better overall. On physical exam, his bronchospasm continues to resolve. I will continue the current nebulizer treatments and decrease the intravenous steroids this morning. I did order a chest x-ray for the morning - not done yet. I will check that when feasible. I would continue the cardiology and infectious disease evaluations. Inputs were noted. Clinical status of the patient is significantly improved. However, the future status/prognosis for this patient does remain guarded. I will discuss the above with the attending physician. [place] MD MADHURI
[2017-06-20] MEDS ORDERED: Lidocaine 2% Inj (20ml) ONE (09:55)
[2017-06-20] MEDS ORDERED: Midazolam 2 MG/2 ML VIAL ONE (10:28)
[2017-06-20] MEDS ORDERED: Etomidate 20 mg/10ml Inj IV ONE (10:29)
[2017-06-20] MEDS: MethylPREDNISolone 40 mg Vial IVP SCH ×2 (10:30→21:12)
--- NOTE | 2017-06-20 11:19 | PCM.SURG1 ---
Surgeon's Initial Post Op Note - Surgeon's Notes Surgeon: Dr. Buitrago [employer] Specialist: Dr. Hollis Montoya PGY1 Type of Anesthesia: IV Sedation, Local Anesthesia Administered By: Dr. Sapp Pre-Operative Diagnosis: Stage 3 ulcerations to right lower extremity; venous stasis Operative Findings: See operative report Post-Operative Diagnosis: Same as above Operation Performed: Right leg wound debridement Specimen/Specimens Removed: none Estimated Blood Loss: EBL {In ML}: 2 Blood Products Given: N/A Drains Used: No Drains Post-Op Condition: Good Date of Surgery/Procedure: 06/20/17 Time of Surgery/Procedure: 11:00
--- NOTE | 2017-06-20 12:26 | CP.PCM.PN ---
Subjective - Date & Time of Evaluation Date of Evaluation: 06/20/17 Time of Evaluation: 12:23 - Subjective Subjective: Follow up Nephrology Consultation: Assessment: Stable Acute Hypercapnic respi failure s/p mechanical intubation, post-hypercapnic metabolic alkalosis Acute Kidney Injury (N17.9) likely due to dehydration as evident by Hypernatremia. Hyperkalemia: improved Hypertensive Chronic Kidney Disease (I12.9) Chronic Kidney Disease (N18.9) Stage 3 with 600 mg proteinuria (R80.9) possibly due to HTN/vasc disease HTN (I12.9), pulmonary fibrosis, chronic systolic CHF, bladder tumor, b/l kidney cysts Altered mental status NSTEMI Plan No acute need for renal replacement therapy at this time. Hypertension controlled with meds as ordered. Patient not on ACEI/ARB due to JASWINDER. At home he was on losartan 25 mg/day. can resume it at d/c. Monitor Input/Output, daily weights and renal function with basic metabolic panel hold lasix due to rise in cr, Na and K. he was NPO yesterday. can try lasix 20 mg/day at d/c with close monitoring GN serology with complement and ANCA neg. kidney biopsy not indicated. Dose meds/antibiotics for reduced GFR ~ 50. Avoid fleets enema/magnesium based laxatives. Avoid nephrotoxins/NSAIDs/ iodinated contrast (unless needed emergently) Glycemic control Further work up/management as per primary team Thanks for allowing me to participate in care of your patient. Please call if any Qs. d/w team. pt planned for d/c to [facility] soon. stable from renal perspective Dr Edvin Nj Office: [phone] Chief Complaint; none today HPI: Pt is a 87 y/o M with hx of CHF (EF 30-35%), COPD with pulmonary fibrosis, CKD stage 3 (baseline cr 1.1-1.4 mg/dL), HTN, bladder tumor came to ER with altered mental status and shortness of breath and intubated for hypercapnic respi failure, transferred to ICU, renal consult requested for hypernatremia and JASWINDER. got extubated 06/15/17. ROS: Pt seen in PACU s/p foot debirdement. he appears to be confused. telling his stories about job but not answering questions asked. Physical Examination: General Appearance: Comfortable, in no acute respiratory distress. Vitals reviewed and noted as below Head; Atraumatic, normocephalic Neck; supple no lymphadenopathy, no thyromegaly or bruit Lungs: Normal respiratory rate/effort. Breath sounds bilateral with basal crackles Heart: Normal rate. s1s2 normal. No rub or gallop. SM at left sternal border Extremities: 1+ edema. No varicose veins. has chronic venous stasis changes. both legs dressed, known to have chronic leg wounds Neurological: Patient is alert awake and disoriented today Skin: Warm and dry. Normal turgor. No rash. Palpitation: Normal elasticity for age. has upper extremity echymoses/swelling + Abdomen: Abdomen is soft. Bowel sounds +. There is no abdominal tenderness, no guarding/rigidity no organomegaly MSK: no joint tenderness or swelling. Digits and nails normal, no deformity : kidney or bladder not palpable. has catheter Labs/imaging/EKG reviewed. Past medical history, past surgical history, family history, social history, allergy reviewed and noted as below Family hx: Unable to obtain Work up UA done by me showed 30+ protein large blood and LE ++ SG 1.025. microscopy showed very few granular casts, numerous WBCs and also monomorphic RBCs renal sono 2016: b/l renal cysts Objective - Vital Signs/Intake and Output Vital Signs (last 24 hours): Temp Pulse Resp BP Pulse Ox 97.9 F 68 18 131/61 94 L 06/20/17 11:58 06/20/17 11:58 06/20/17 11:58 06/20/17 11:58 06/20/17 11:58 Intake and Output: 06/20/17 06/20/17 06:59 18:59 Intake Total 1250 0 Output Total 950 Balance 300 0 - Medications Medications: Current Medications Acetaminophen (Tylenol 325mg Tab) 650 mg PO Q6H PRN PRN Reason: Pain, moderate (4-7) Last Admin: 06/15/17 20:01 Dose: 650 mg Albuterol/Ipratropium (Duoneb 3 Mg/0.5 Mg (3 Ml) Ud) 3 ml IH [id number] REEMA Last Admin: 06/20/17 07:16 Dose: 3 ml Albuterol/Ipratropium (Duoneb 3 Mg/0.5 Mg (3 Ml) Ud) 3 ml IH Q2H PRN PRN Reason: Shortness of Breath Aspirin (Ecotrin) 81 mg PO DAILY [facility] Last Admin: 06/19/17 10:42 Dose: 81 mg Atorvastatin Calcium (Lipitor) 10 mg PO DAILY [facility] Last Admin: 06/19/17 10:42 Dose: 10 mg Clopidogrel Bisulfate (Plavix) 75 mg PO DAILY [facility] Last Admin: 06/19/17 10:42 Dose: 75 mg Heparin Sodium (Porcine) (Heparin) 5,000 units SC Q12 [facility] PRN Reason: Protocol Last Admin: 06/19/17 11:07 Dose: 5,000 units Hydralazine HCl (Apresoline) 10 mg IVP Q6 PRN PRN Reason: high blood pressure Ceftriaxone Sodium (Rocephin 1 Gram Ivpb) 1 gm in 100 mls @ 100 mls/hr IVPB DAILY [facility] PRN Reason: Protocol Last Admin: 06/19/17 10:43 Dose: 100 mls/hr Vancomycin HCl (Vancomycin 1gm) 1 gm in 250 mls @ 167 mls/hr IVPB DAILY [facility] PRN Reason: Protocol Last Admin: 06/19/17 10:43 Dose: 167 mls/hr Isosorbide Mononitrate (Imdur) 60 mg PO DAILY [facility] Last Admin: 06/20/17 10:07 Dose: Not Given Methylprednisolone (Solu-Medrol) 20 mg IVP Q12 [facility] Metoprolol Tartrate (Lopressor) 25 mg PO BID [facility] Last Admin: 06/20/17 09:40 Dose: 25 mg Mupirocin (Bactroban Ointment) 0 gm TOP BID [facility] Last Admin: 06/20/17 10:09 Dose: Not Given Pantoprazole Sodium (Protonix Susp) 40 mg GT 0600 [facility] Last Admin: 06/19/17 05:15 Dose: 40 mg - Labs Labs: 06/20/17 07:30 06/20/17 07:30 PT 14.7 Seconds (9.9-11.8) H 06/13/17 17:33 INR 1.36 (0.93-1.08) H 06/13/17 17:33 APTT 26.6 Seconds (23.7-30.8) 06/19/17 05:10
--- NOTE | 2017-06-20 13:20 | CP.PCM.PN ---
Subjective - Date & Time of Evaluation Date of Evaluation: 06/20/17 Time of Evaluation: 12:15 - Subjective Subjective: Infectious Disease Follow Up: June 20, 2017 87 yo male brought in for lethargy and AMS. The patient has an extensive medical history that includes COPD, CHF last known EF of 30-35% in 08/2016, HTN , Paget's disease and PAD. The patient required intubation and ventilation once arriving in [facility]. He has been extubated now. Remains extubated and feeling better. He is much more awake and alert today. No major complaints. He does complain of bilateral lower extremity pain. Went to OR for debridement of bilateral stage III ulcers of the lower extremities. Objective - Vital Signs/Intake and Output Vital Signs (last 24 hours): Temp Pulse Resp BP Pulse Ox 97.9 F 68 18 131/61 94 L 06/20/17 11:58 06/20/17 11:58 06/20/17 11:58 06/20/17 11:58 06/20/17 11:58 Intake and Output: 06/20/17 06/20/17 06:59 18:59 Intake Total 1250 0 Output Total 950 Balance 300 0 - Medications Medications: Current Medications Acetaminophen (Tylenol 325mg Tab) 650 mg PO Q6H PRN PRN Reason: Pain, moderate (4-7) Last Admin: 06/15/17 20:01 Dose: 650 mg Albuterol/Ipratropium (Duoneb 3 Mg/0.5 Mg (3 Ml) Ud) 3 ml IH [id number] [facility] Last Admin: 06/20/17 07:16 Dose: 3 ml Albuterol/Ipratropium (Duoneb 3 Mg/0.5 Mg (3 Ml) Ud) 3 ml IH Q2H PRN PRN Reason: Shortness of Breath Aspirin (Ecotrin) 81 mg PO DAILY [facility] Last Admin: 06/19/17 10:42 Dose: 81 mg Atorvastatin Calcium (Lipitor) 10 mg PO DAILY [facility] Last Admin: 06/19/17 10:42 Dose: 10 mg Clopidogrel Bisulfate (Plavix) 75 mg PO DAILY [facility] Last Admin: 06/19/17 10:42 Dose: 75 mg Heparin Sodium (Porcine) (Heparin) 5,000 units SC Q12 [facility] PRN Reason: Protocol Last Admin: 06/19/17 11:07 Dose: 5,000 units Hydralazine HCl (Apresoline) 10 mg IVP Q6 PRN PRN Reason: high blood pressure Ceftriaxone Sodium (Rocephin 1 Gram Ivpb) 1 gm in 100 mls @ 100 mls/hr IVPB DAILY [facility] PRN Reason: Protocol Last Admin: 06/19/17 10:43 Dose: 100 mls/hr Vancomycin HCl (Vancomycin 1gm) 1 gm in 250 mls @ 167 mls/hr IVPB DAILY [facility] PRN Reason: Protocol Last Admin: 06/19/17 10:43 Dose: 167 mls/hr Isosorbide Mononitrate (Imdur) 60 mg PO DAILY [facility] Last Admin: 06/20/17 10:07 Dose: Not Given Methylprednisolone (Solu-Medrol) 20 mg IVP Q12 [facility] Metoprolol Tartrate (Lopressor) 25 mg PO BID [facility] Last Admin: 06/20/17 09:40 Dose: 25 mg Mupirocin (Bactroban Ointment) 0 gm TOP BID [facility] Last Admin: 06/20/17 10:09 Dose: Not Given Pantoprazole Sodium (Protonix Susp) 40 mg GT 0600 [facility] Last Admin: 06/19/17 05:15 Dose: 40 mg - Labs Labs: 06/20/17 07:30 06/20/17 07:30 PT 14.7 Seconds (9.9-11.8) H 06/13/17 17:33 INR 1.36 (0.93-1.08) H 06/13/17 17:33 APTT 26.6 Seconds (23.7-30.8) 06/19/17 05:10 - Constitutional Appears: Non-toxic, No Acute Distress, Chronically Ill - Head Exam Head Exam: ATRAUMATIC, NORMOCEPHALIC - Eye Exam Eye Exam: EOMI, PERRL Pupil Exam: NORMAL ACCOMODATION, PERRL - ENT Exam ENT Exam: Mucous Membranes Moist, Normal External Ear Exam, TM's Normal Bilaterally - Neck Exam Neck Exam: Full ROM, Normal Inspection - Respiratory Exam Respiratory Exam: Clear to Ausculation Bilateral, NORMAL BREATHING PATTERN. absent: Rales, Rhonchi, Wheezes - Cardiovascular Exam Cardiovascular Exam: REGULAR RHYTHM, RRR, +S1, +S2 - GI/Abdominal Exam GI & Abdominal Exam: Soft, Normal Bowel Sounds. absent: Distended, Tenderness - Extremities Exam Additional comments: +Heel protectors +Venous stasis skin changes B/L LE wrapped with curlex mild cellulitis of the bilateral lower extremities and chronic venous stasis. open ulcerations on the bilateral legs anteriorly. wounds are malodorous. now s/p debridement of the ulcerations. - Neurological Exam Neurological Exam: Alert, Awake, CN II-XII Intact, Oriented x3 - Psychiatric Exam Psychiatric exam: Normal Affect, Normal Mood - Skin Additional comments: as above Assessment and Plan - Assessment and Plan (Free Text) Assessment: 87 yo male with AMS and lethargy. Etiology unclear. Broad spectrum coverage for now with Rocephin and Vancomycin treatment. Ignacio cultures. Imaging studies. Patient was intubated and ventilated but was extubated recently. Remains in ICU currently. He is more awake and alert now. Overall improving. Supportive care. Obtain procalcitonin... which was 0.48 which is normal. Follow up WBC and fever trend. Urine drug screen positive for Benzodiazepine. Respiratory failure. Renal insufficiency (acute or chronic?). Patient has a history of hypertension and systolic congestive heart failure. Patient improving and is mentally back to his normal state at this time. His only complaint is of bilateral lower leg pains. Went to OR this Sunday morning for debridement of unhealthy tissue of the legs. No additional issues. Thank you for allowing me to participate in the care of the patient, we will follow with you.
--- NOTE | 2017-06-20 16:26 | CP.PCM.DIS ---
Provider - Provider Date of Admission: 06/13/17 19:23 Attending physician: Stephanie Julien MD Consults: Neurology Nephrology Cardiology ID Podiatry Pulm Time Spent in preparation of Discharge (in minutes): 55 Hospital Course - Lab Results Lab Results: Micro Results 06/13/17 22:07 Blood-Venous Blood Culture - Final NO GROWTH AFTER 5 DAYS 06/13/17 22:07 Blood-Venous Gram Stain - Final TEST NOT PERFORMED 06/13/17 21:47 Nose MRSA Culture (Admit) - Final MRSA NOT DETECTED 06/14/17 08:30 Foot - Left Gram Stain - Final 06/14/17 08:30 Foot - Left Wound Culture - Final Klebsiella Oxytoca Staphylococcus Aureus 06/13/17 23:30 Leg - Right Gram Stain - Final 06/13/17 23:30 Leg - Right Wound Culture - Final Escherichia Coli Staphylococcus Aureus 06/13/17 23:30 Leg - Left Gram Stain - Final 06/13/17 23:30 Leg - Left Wound Culture - Final Klebsiella Oxytoca Staphylococcus Aureus Most Recent Lab Values WBC 9.0 10^3/ul (4.5-11.0) 06/20/17 07:30 RBC 4.32 10^6/uL (3.5-6.1) 06/20/17 07:30 Hgb 12.3 g/dL (14.0-18.0) L 06/20/17 07:30 Hct 39.3 % (42.0-52.0) L 06/20/17 07:30 MCV 91.0 fl (80.0-105.0) 06/20/17 07:30 MCH 28.5 pg (25.0-35.0) 06/20/17 07:30 MCHC 31.3 g/dl (31.0-37.0) 06/20/17 07:30 RDW 17.2 % (11.5-14.5) H 06/20/17 07:30 Plt Count 137 10^3/uL (120.0-450.0) 06/20/17 07:30 MPV 10.9 fl (7.0-11.0) 06/20/17 07:30 Gran % 90.5 % (50.0-68.0) H 06/20/17 07:30 Lymph % (Auto) 4.2 % (22.0-35.0) L 06/20/17 07:30 [place] % (Auto) 5.3 % (1.0-6.0) 06/20/17 07:30 Eos % (Auto) 0.0 % (1.5-5.0) L 06/20/17 07:30 Baso % (Auto) 0.0 % (0.0-3.0) 06/20/17 07:30 Gran # 8.12 (1.4-6.5) H 06/20/17 07:30 Lymph # 0.4 (1.2-3.4) L 06/20/17 07:30 [place] # 0.5 (0.1-0.6) 06/20/17 07:30 Eos # 0.0 (0.0-0.7) 06/20/17 07:30 Baso # 0.00 K/mm3 (0.0-2.0) 06/20/17 07:30 Neutrophils % (Manual) 89 % (50.0-70.0) H 06/19/17 05:10 Band Neutrophils % 3 % (0-2) H 06/19/17 05:10 Lymphocytes % (Manual) 3 % (22.0-35.0) L 06/19/17 05:10 Monocytes % (Manual) 5 % (1.0-6.0) 06/19/17 05:10 Toxic Granulation Slight 06/15/17 06:00 Platelet Evaluation Normal (NORMAL) 06/19/17 05:10 Large Platelets Present 06/15/17 06:00 Basophilic Stippling Slight 06/19/17 05:10 Anisocytosis (manual) Slight 06/19/17 05:10 PT 14.7 Seconds (9.9-11.8) H 06/13/17 17:33 INR 1.36 (0.93-1.08) H 06/13/17 17:33 APTT 26.6 Seconds (23.7-30.8) 06/19/17 05:10 pCO2 59 mm/Hg (35-45) H 06/17/17 05:45 pO2 107.0 mm/Hg (80-100) H 06/17/17 05:45 HCO3 29.7 mmol/L (21-28) H 06/17/17 05:45 ABG pH 7.31 (7.35-7.45) L 06/17/17 05:45 ABG Total CO2 31.5 mmol.L (22-28) H 06/17/17 05:45 ABG O2 Saturation 99.2 % (95-98) H 06/17/17 05:45 ABG O2 Content 16.1 ML/dl (15-23) 06/17/17 05:45 ABG Base Excess 2.2 mmol/L (-2.0-3.0) 06/17/17 05:45 ABG Hemoglobin 11.9 g/dL (11.7-17.4) 06/17/17 05:45 ABG Carboxyhemoglobin 2.2 % (0.5-1.5) H 06/17/17 05:45 POC ABG HHb (Measured) 0.8 % (0-5) 06/17/17 05:45 ABG Methemoglobin 1.3 % (0.0-3.0) 06/17/17 05:45 ABG O2 Capacity 16.2 mL/dl (16-24) 06/17/17 05:45 ABG Potassium 5.1 mmol/L (3.6-5.2) 06/13/17 18:00 VBG pH 7.52 (7.32-7.43) H 06/14/17 06:01 VBG pCO2 40.0 (40-60) 06/14/17 06:01 VBG HCO3 32.7 mmol/l (21-28) H 06/14/17 06:01 VBG Total CO2 33.9 mmol.L (22-28) H 06/14/17 06:01 VBG O2 Sat (Calc) 99.2 % (40-65) H 06/14/17 06:01 VBG Base Excess 9.0 mmol/L (0.0-2.0) H 06/14/17 06:01 VBG Potassium 4.0 mmol/L (3.6-5.2) 06/14/17 06:01 Hgb O2 Saturation 95.6 % (95.0-98.0) 06/17/17 05:45 Sodium 153.0 mmol/L (132-148) H 06/14/17 06:01 Chloride 115.0 mmol/L (98-107) H 06/14/17 06:01 Glucose 145 mg/dl (75-110) H 06/14/17 06:01 Lactate 1.7 mmol/L (0.7-2.1) 06/14/17 06:01 Mechanical Rate 16 06/13/17 18:00 FiO2 28.0 % 06/17/17 05:45 Tidal Volume 450 06/13/17 18:00 PEEP 5 06/13/17 18:00 Sodium 145 mmol/L (132-148) 06/20/17 07:30 Potassium 5.5 mmol/L (3.6-5.0) H 06/20/17 07:30 Chloride 103 mmol/L (95-110) 06/20/17 07:30 Carbon Dioxide 34 mmol/L (21-33) H 06/20/17 07:30 Anion Gap 14 (10-20) 06/20/17 07:30 BUN 58 mg/dL (7-21) H 06/20/17 07:30 Creatinine 1.8 mg/dL (0.5-1.4) H 06/20/17 07:30 Est GFR ( Amer) 44 06/20/17 07:30 Est GFR (Non-Af Amer) 36 06/20/17 07:30 POC Glucose (mg/dL) 136 mg/dL (65-110) H 06/14/17 06:34 Random Glucose 117 mg/dL (70-110) H 06/20/17 07:30 Uric Acid 8.2 mg/dL (3.5-8.5) 06/15/17 06:00 Calcium 8.0 mg/dL (8.4-10.5) L 06/20/17 07:30 Phosphorus 5.0 mg/dL (2.5-4.5) H 06/20/17 07:30 Magnesium 1.8 mg/dL (1.7-2.2) 06/19/17 05:10 Total Bilirubin 0.9 mg/dL (0.2-1.3) 06/20/17 07:30 AST 38 U/L (15-59) 06/20/17 07:30 ALT 53 U/L (7-56) 06/20/17 07:30 Alkaline Phosphatase 138 U/L (38-133) H 06/20/17 07:30 Ammonia 11 umol/L (9-33) 06/13/17 23:40 Lactate Dehydrogenase 692 U/L (333-699) 06/13/17 18:43 Total Creatine Kinase 99 U/L (35-230) 06/14/17 08:15 Troponin I 0.16 ng/mL H* D 06/17/17 15:25 NT-Pro-B Natriuret Pep 77018 pg/mL (0-450) H 06/13/17 18:43 Total Protein 6.2 g/dL (5.8-8.3) 06/20/17 07:30 Albumin 3.1 g/dL (3.0-4.8) 06/20/17 07:30 Globulin 3.1 gm/dL 06/20/17 07:30 Albumin/Globulin Ratio 1.0 (1.1-1.8) L 06/20/17 07:30 Triglycerides 62 mg/dL (35-160) 06/14/17 06:05 Cholesterol 118 mg/dL (130-200) L 06/14/17 06:05 LDL Cholesterol Direct 81 mg/dL (0-129) 06/14/17 06:05 HDL Cholesterol 25 mg/dL (29-60) L 06/14/17 06:05 Lipase 34 U/L (23-300) 06/13/17 18:43 Procalcitonin 0.48 NG/ML (0.19-0.49) 06/14/17 08:15 TSH 3rd Generation 3.08 mIU/mL (0.46-4.68) 06/13/17 22:30 Arterial Blood Potassium 5.1 mmol/L (3.6-5.2) 06/13/17 18:00 Venous Blood Potassium 4.0 mmol/L (3.6-5.2) 06/14/17 06:01 Urine Color Dark yellow (YELLOW) 06/13/17 18:03 Urine Appearance Sl cloudy (CLEAR) 06/13/17 18:03 Urine pH 5.5 (4.7-8.0) 06/13/17 18:03 Ur Specific [place] >= 1.030 (1.005-1.035) 06/13/17 18:03 Urine Protein >=300 mg/dL (<30 mg/dL) H 06/13/17 18:03 Urine Glucose (UA) Negative mg/dL (NEGATIVE) 06/13/17 18:03 Urine Ketones Negative mg/dL (NEGATIVE) 06/13/17 18:03 Urine Blood Small (NEGATIVE) H 06/13/17 18:03 Urine Nitrate Negative (NEGATIVE) 06/13/17 18:03 Urine Bilirubin Moderate (NEGATIVE) H 06/13/17 18:03 Urine Urobilinogen 1.0 E.U./dL (<1 E.U./dL) H 06/13/17 18:03 Ur Leukocyte Esterase Negative Marita/uL (NEGATIVE) 06/13/17 18:03 Urine RBC 2 - 5 /hpf (0-2) 06/13/17 18:03 Urine WBC 1 - 3 /hpf (0-6) 06/13/17 18:03 Ur Epithelial Cells 0 - 2 /hpf (0-5) 06/13/17 18:03 Urine Bacteria Few (NEG) 06/13/17 18:03 Hyaline Casts 0 - 2 /hpf 06/13/17 18:03 Fine Granular Casts 0 - 2 /hpf (0-2) 06/13/17 18:03 Coarse Granular Casts Trace /hpf (0-2) H 06/13/17 18:03 Urine Osmolality 326 mosm/kg (50-645) 06/13/17 22:59 Ur Random Creatinine 78 mg/dL 06/16/17 11:00 U Random Total Protein 615 mg/g creat (22-128) H 06/16/17 11:00 Ur Random Sodium 111 meq/L 06/13/17 22:59 Ur Random Potassium 37.9 meq/L 06/13/17 22:59 Urine Microalbumin 209.3 mg/L (0.0-16.6) H 06/15/17 14:05 Salicylates < 1 mg/dL (2.0-20.0) L 06/13/17 22:07 Urine Opiates Screen Negative (NEGATIVE) 06/13/17 22:59 Urine Methadone Screen Negative (NEGATIVE) 06/13/17 22:59 Ur Barbiturates Screen Negative (NEGATIVE) 06/13/17 22:59 Ur Phencyclidine Scrn Negative (NEGATIVE) 06/13/17 22:59 Ur Amphetamines Screen Negative (NEGATIVE) 06/13/17 22:59 U Benzodiazepines Scrn Positive (NEGATIVE) H 06/13/17 22:59 U Oth Cocaine Metabols Negative (NEGATIVE) 06/13/17 22:59 U Cannabinoids Screen Negative (NEGATIVE) 06/13/17 22:59 Alcohol, Quantitative < 10 mg/dL (0-10) 06/13/17 22:07 IgG 1344 mg/dL (694-1618) 06/18/17 05:00 IgA 336 mg/dL (81-463) 06/18/17 05:00 IgM 63 mg/dL (48-271) 06/18/17 05:00 ANCA Screen Negative (NEGATIVE) 06/15/17 06:00 c-ANCA Titer TNP 06/15/17 06:00 Proteinase 3 (PR3) <1.0 AI (<1.0) 06/15/17 06:00 p-ANCA Titer TNP 06/15/17 06:00 Atypical p-ANCA Titer TNP 06/15/17 06:00 Myeloperoxidase Ab <1.0 AI (<1.0) 06/15/17 06:00 Complement C3 77.0 mg/dL (88.0-165.0) L 06/15/17 06:00 Complement C4 20.8 mg/dL (14.0-44.0) 06/15/17 06:00 Free [place] Light Chains 42.1 mg/L (3.3-19.4) H 06/18/17 05:00 Free Lambda Light Chain 32.5 mg/L (5.7-26.3) H 06/18/17 05:00 Free [place]/Lambda Ratio 1.30 (0.26-1.65) 06/18/17 05:00 - Hospital Course Hospital Course: 87 yo M with PMH of COPD, CHF, HTN, DM, NSTEMI, and PAD originally presented to ED by EMS for unresponsvieness, pinpoint pupils, AMS. Patient was intubated in the ER for hypercapnic respiratory failure and transferred to ICU. 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 Patient was extubated on hospital day 3, when his respiratory status improved, but continued to have AMS. Patient's mental status improved the following day, and he was transferred out of the ICU. Patient was cleared by cardiology yesterday, and respiratory status continues to improve. Today, patient had surgery with podiatry for debridement of his RLE. Continuing to taper steroids. Patient denies any CP, SOB, N/V/D/C, abdominal pain, F/C. He is awake, alert, and oriented to person, place and time. He is mentating well, and has returned to his baseline. Patient's condition and medications were discussed, all questions answered to his satisfaction, and was discharged to the transitional care unit for rehabilitation. He should continue his antibiotics to completion, and continue to taper down slowly on the steroids. Discharge Exam - Head Exam Head Exam: ATRAUMATIC, NORMOCEPHALIC - Eye Exam Eye Exam: Normal appearance, PERRL - ENT Exam ENT Exam: Mucous Membranes Moist - Neck Exam Neck exam: Normal Inspection - Respiratory Exam Respiratory Exam: Clear to PA & Lateral. absent: Rales, Rhonchi, Wheezes - Cardiovascular Exam Cardiovascular Exam: RRR, +S1, +S2 - GI/Abdominal Exam GI & Abdominal Exam: Normal Bowel Sounds, Soft. absent: Tenderness - Extremities Exam Additional comments: B/L lower extremities bandaged circumfrentially from ankles to knees, dressings appear CDI. Mild erythema and trace edema noted in b/l ankles and feet. - Neurological Exam Neurological exam: Alert, CN II-XII Intact, Oriented x3 - Psychiatric Exam Psychiatric exam: Normal Affect, Normal Mood - Skin Skin Exam: Dry Additional comments: B/L forearms large ecchymotic plaques on each arm, with disseminated echymoses, likely 2/2 heparin drip and multiple venipunctures daily, appear to be darkening and healing. Echymoses appear to be healing, no new echymoses since yesterday. Discharge Plan - Follow Up Plan Condition: CRITICAL Disposition: HOME/ ROUTINE Instructions: Heart Failure (ED)
--- NOTE | 2017-06-20 16:32 | CP.PCM.PN ---
<GENTRY CASEY - Last Filed: 06/20/17 16:35> Subjective - Date & Time of Evaluation Date of Evaluation: 06/20/17 Time of Evaluation: 07:30 - Subjective Subjective: Gentry Casey DO PGY1 - Medicine Progress Note Patient seen and examined at bedside. Nurse reports no acute events overnight. Patient is scheduled for surgery today with podiatry for debriedment of RLE. He has been NPO since midnight. Patient currently denies any CP or SOB. He also denies abdominal pain, F/C, N/V/D/C. He is AAOx3 and is satting well on 3L NC. Diffuse UE ecchymoses still appear to be healing with no new ones. Requesting a regular diet. Objective - Vital Signs/Intake and Output Vital Signs (last 24 hours): Temp Pulse Resp BP Pulse Ox 97.9 F 68 18 131/61 94 L 06/20/17 11:58 06/20/17 11:58 06/20/17 11:58 06/20/17 11:58 06/20/17 11:58 Intake and Output: 06/20/17 06/20/17 06:59 18:59 Intake Total 1250 640 Output Total 950 400 Balance 300 240 - Medications Medications: Current Medications Acetaminophen (Tylenol 325mg Tab) 650 mg PO Q6H PRN PRN Reason: Pain, moderate (4-7) Last Admin: 06/15/17 20:01 Dose: 650 mg Albuterol/Ipratropium (Duoneb 3 Mg/0.5 Mg (3 Ml) Ud) 3 ml IH [id number] ON [facility] OF [facility] Last Admin: 06/20/17 13:24 Dose: 3 ml Albuterol/Ipratropium (Duoneb 3 Mg/0.5 Mg (3 Ml) Ud) 3 ml IH Q2H PRN PRN Reason: Shortness of Breath Aspirin (Ecotrin) 81 mg PO DAILY [facility] OF [facility] Last Admin: 06/19/17 10:42 Dose: 81 mg Atorvastatin Calcium (Lipitor) 10 mg PO DAILY [facility] Last Admin: 06/19/17 10:42 Dose: 10 mg Clopidogrel Bisulfate (Plavix) 75 mg PO DAILY [facility] Last Admin: 06/19/17 10:42 Dose: 75 mg Heparin Sodium (Porcine) (Heparin) 5,000 units SC Q12 [facility] OF [facility] PRN Reason: Protocol Last Admin: 06/19/17 11:07 Dose: 5,000 units Hydralazine HCl (Apresoline) 10 mg IVP Q6 PRN PRN Reason: high blood pressure Ceftriaxone Sodium (Rocephin 1 Gram Ivpb) 1 gm in 100 mls @ 100 mls/hr IVPB DAILY [facility] PRN Reason: Protocol Last Admin: 06/19/17 10:43 Dose: 100 mls/hr Vancomycin HCl (Vancomycin 1gm) 1 gm in 250 mls @ 167 mls/hr IVPB DAILY [facility] PRN Reason: Protocol Last Admin: 06/19/17 10:43 Dose: 167 mls/hr Isosorbide Mononitrate (Imdur) 60 mg PO DAILY [facility] Last Admin: 06/20/17 10:07 Dose: Not Given Methylprednisolone (Solu-Medrol) 20 mg IVP Q12 ON [facility] OF [facility] Metoprolol Tartrate (Lopressor) 25 mg PO BID ON [facility] OF [facility] Last Admin: 06/20/17 09:40 Dose: 25 mg Mupirocin (Bactroban Ointment) 0 gm TOP BID ON [facility] Last Admin: 06/20/17 10:09 Dose: Not Given Pantoprazole Sodium (Protonix Susp) 40 mg GT 0600 ON [facility] OF [facility] Last Admin: 06/19/17 05:15 Dose: 40 mg - Labs Labs: 06/20/17 07:30 06/20/17 07:30 PT 14.7 Seconds (9.9-11.8) H 06/13/17 17:33 INR 1.36 (0.93-1.08) H 06/13/17 17:33 APTT 26.6 Seconds (23.7-30.8) 06/19/17 05:10 - Constitutional Appears: Non-toxic, No Acute Distress, Chronically Ill - Head Exam Head Exam: ATRAUMATIC, NORMOCEPHALIC - Eye Exam Eye Exam: EOMI, PERRL - ENT Exam ENT Exam: Mucous Membranes Moist - Neck Exam Neck Exam: absent: Lymphadenopathy, Thyromegaly - Respiratory Exam Respiratory Exam: Rales (mild, diffuse), NORMAL BREATHING PATTERN. absent: Rhonchi, Wheezes - Cardiovascular Exam Cardiovascular Exam: RRR, +S1, +S2 - GI/Abdominal Exam GI & Abdominal Exam: Soft, Normal Bowel Sounds. absent: Tenderness - Extremities Exam Additional comments: B/L lower extremities bandaged circumfrentially from ankles to knees, dressings appear CDI. Mild erythema and trace edema noted in b/l ankles and feet - Neurological Exam Neurological Exam: Alert, Awake, Oriented x3 Neuro motor strength exam: Left Upper Extremity: 5, Right Upper Extremity: 5, Left Lower Extremity: 5, Right Lower Extremity: 5 - Psychiatric Exam Psychiatric exam: Normal Affect, Normal Mood - Skin Additional comments: B/L forearms large erythematous plaques with 1-2 small bullae on each arm, with disseminated echymoses, likely 2/2 heparin drip and multiple venipunctures daily , appear to be darkening and healing. Echymoses appear to be healing, no new echymoses since yesterday. Assessment and Plan - Assessment and Plan (Free Text) Assessment: This is an 87 yo M with PMH of COPD, CHF (30% --> 17% EF), Paget's disease, and HTN who presented with AMS and hypercapnic respiratory failure requiring intubation/mechanical ventilation. Pt is 6 days s/p extubation, AAOx3, following commands and mentating well. Remains on IV abx for b/l LE cellulitis positive for MRSA. Plan: 1) Acute Hypercapnic Respiratory Failure: Resolved -2/2 CHF exacerbation in setting of NSTEMI and history of severe COPD -6 days s/p extubation, tolerating well -continue Solumedrol 20mg IV Q12H - tapering down slowly - Nebs Q6H tomer/Q2 prn, as per Pulm -Satting well on O2 NC, maintain SaO2 88-95%, avoid persistently elevated SaO2 to prevent suppression of respiratory drive in COPD pt -Heparin drip d/c'd >48hrs post LA, will continue with conservative management at this time, no new stress test. -Cardio (Santa), Neuro (Cindi Castro), and Pulm (Jayy) consulted, appreciate all recs 2) Altered Mental Status: Resolved -2/2 Hypercapnic resp failure vs Sepsis from LE cellulitis vs ACS -Head CT: small hypodense lacunar infarct within the left cerebellar lobe, considered to be subacute -UDS (+) benzos, no benzos listed in home medication charting -MRI showing chronic microvascular changes, MRA unremarkable -EEG completed, significant for diffuse slowing "drowsy". Was done when sedated. -Blood cx showing no growth x 5 days, urine cx no growth -Wound cxs: +MRSA, Right leg WCX: E.Coli, Staph. 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 Aureus (Resistant to PCN but Oxa sensitive); Left leg WCX: Klebsella Oxytosa, Staph Aureus -Rocephin and vanc -Patient is up for surgery today for debridement of RLE wound nonviable tissue with podiatry 5) Congestive Heart Failure (Systolic) -Continue home meds -Strict I&O's -Daily weights -Cardio consulted, appreciate all recs 6) Acute Kidney Injury: stable -Creatinine increased to 1.8 and potassium mildly elevated at 5.5 today, will discontinue lasix and recheck in AM -monitor I&Os -Nephro (Wise) consulted, appreciate all recs 7) Hypertension -continue Lopressor 5mg Q8H, Hydralazine 10mg Q6H PRN 8) Hypocalcemia -Noted to have mild hypocalcemia on today's labs, with normal albumin -Likely secondary to lasix use, which will be discontinued today -Will check vit D, phosphate and PTH Ppx: Heparin SQ for DVT, Protonix for GI Patient reviewed and discussed with attending <Stephanie Julien - Last Filed: 06/20/17 17:08> Objective - Vital Signs/Intake and Output Vital Signs (last 24 hours): Temp Pulse Resp BP Pulse Ox 97.9 F 68 18 131/61 94 L 06/20/17 11:58 06/20/17 11:58 06/20/17 11:58 06/20/17 11:58 06/20/17 11:58 Intake and Output: 06/20/17 06/20/17 06:59 18:59 Intake Total 1250 640 Output Total 950 400 Balance 300 240 - Medications Medications: Current Medications Acetaminophen (Tylenol 325mg Tab) 650 mg PO Q6H PRN PRN Reason: Pain, moderate (4-7) Last Admin: 06/15/17 20:01 Dose: 650 mg Albuterol/Ipratropium (Duoneb 3 Mg/0.5 Mg (3 Ml) Ud) 3 ml IH [id number] ON [facility] Last Admin: 06/20/17 13:24 Dose: 3 ml Albuterol/Ipratropium (Duoneb 3 Mg/0.5 Mg (3 Ml) Ud) 3 ml IH Q2H PRN PRN Reason: Shortness of Breath Aspirin (Ecotrin) 81 mg PO DAILY ON [facility] Last Admin: 06/19/17 10:42 Dose: 81 mg Atorvastatin Calcium (Lipitor) 10 mg PO DAILY ON [facility] Last Admin: 06/19/17 10:42 Dose: 10 mg Clopidogrel Bisulfate (Plavix) 75 mg PO DAILY [facility] Last Admin: 06/19/17 10:42 Dose: 75 mg Heparin Sodium (Porcine) (Heparin) 5,000 units SC Q12 [facility] PRN Reason: Protocol Last Admin: 06/19/17 11:07 Dose: 5,000 units Hydralazine HCl (Apresoline) 10 mg IVP Q6 PRN PRN Reason: high blood pressure Ceftriaxone Sodium (Rocephin 1 Gram Ivpb) 1 gm in 100 mls @ 100 mls/hr IVPB DAILY [facility] PRN Reason: Protocol Last Admin: 06/19/17 10:43 Dose: 100 mls/hr Vancomycin HCl (Vancomycin 1gm) 1 gm in 250 mls @ 167 mls/hr IVPB DAILY [facility] PRN Reason: Protocol Last Admin: 06/19/17 10:43 Dose: 167 mls/hr Isosorbide Mononitrate (Imdur) 60 mg PO DAILY [facility] Last Admin: 06/20/17 10:07 Dose: Not Given Methylprednisolone (Solu-Medrol) 20 mg IVP Q12 ON [facility] Metoprolol Tartrate (Lopressor) 25 mg PO BID ON [facility] Last Admin: 06/20/17 09:40 Dose: 25 mg Mupirocin (Bactroban Ointment) 0 gm TOP BID ON [facility] Last Admin: 06/20/17 10:09 Dose: Not Given Pantoprazole Sodium (Protonix Susp) 40 mg GT 0600 ON [facility] Last Admin: 06/19/17 05:15 Dose: 40 mg - Labs Labs: 06/20/17 07:30 06/20/17 07:30 PT 14.7 Seconds (9.9-11.8) H 06/13/17 17:33 INR 1.36 (0.93-1.08) H 06/13/17 17:33 APTT 26.6 Seconds (23.7-30.8) 06/19/17 05:10 Attending/Attestation - Attestation I have personally seen and examined this patient.: Yes I have fully participated in the care of the patient.: Yes I have reviewed all pertinent clinical information, including history, physical exam and plan: Yes Notes (Text): I have seen and examined the patient at bedside. Agree with the above note with the following additions/ exceptions: Briefly this is 87 year old male with history of COPD, CHF EF of 17%, Paget's disease, HTN who presented with AMS and found to have hypercapnic respiratory failure secondary to COPD exacerbation vs. electrolyte abnormality. He also had troponin elevation most likely due to demand ischemia in respiratory arrest. Patient is awake , alert and oriented x3. There are no focal deficits. He is on 2L NC. He is on tapering dose of steroids as per pulmonary. He has chronic leg ulceration. Wound cultures noted and he is on vanco and rocephin. Patient is scheduled for debridement today. Conservative management as per cardio. JASWINDER is improving. Nephro on board. PT recommended POLLO. Evaluation for Tcu pending. Upon discharge patient will follow up with Dr Ferrari. Dr Stephanie Julien
[2017-06-20] MEDS: cefTRIAXone 1 gm 1 GM/100 ML BAG IVPB SCH (18:28)
[2017-06-20] MEDS: Vancomycin 1gm in NS 250ml 1 GM/250 ML BAG IVPB SCH (21:11)
--- NOTE | 2017-06-20 23:09 | OP ---
PROCEDURE DATE: 06/20/2017 PREOPERATIVE DIAGNOSES: Stage 3 ulceration to the right lower extremity and venous stasis disease. POSTOPERATIVE DIAGNOSES: Stage 3 ulceration to the right lower extremity and venous stasis disease. PROCEDURE: Debridement of the right leg ulcer through the subcutaneous tissue. TYPE OF ANESTHESIA: IV sedation with local infiltration. DESCRIPTION OF PROCEDURE: The patient was brought into the OR and placed on an OR table in usual supine position. His leg was prepped and draped in the usual sterile fashion. Attention was directed to the right leg, where a large ulceration was sitting on anterior aspect of the right leg, measuring approximately 15 x 6 x 0.3 cm. There was necrotic tissue, fibrotic slough and heavy scaling around this wound and on the surrounding leg. The patient's leg was then prepped with Betadine and then using the Versajet system the wound was debrided free of all the nonviable tissue. After debridement of the tissue, there was good free bleeding noted and wound was cleaned with no longer any devitalized tissue. There was also a smaller ulceration noted on the medial ankle. This one measuring approximately 3 x 2 x 5.3 cm. Again, the tissue in this wound was sloughed with necrotic tissue and dispersed. Again using the Versajet debridement system, the wound was debrided to good healthy tissue. The wounds were all then flushed with saline. The patient was dressed with Adaptic, dry sterile dressing and Skinny bandages. The patient was transported to the recovery room in good condition. His vital signs were stable and he will be continued in-house. As per Dr. Julien, I do believe the plan is to discharge the patient soon to home. Siri Buitrago DPM
[2017-06-21] MEDS: Albuterol-Ipratrop 3 mg / 0.5 (3 ml) UD IH SCH ×4 (01:23→20:11)
[2017-06-21] MEDS: Pantoprazole 40 mg Susp UD GT SCH (06:32)
[2017-06-21 07:28] LABS: GRAN # 9.01 (1.4-6.5); GRAN % 87.9 % (50.0-68.0); LYMPH # 0.6 (1.2-3.4); LYMPH % 5.9 % (22.0-35.0); MEAN CELL VOLUME 90.5 fl (80.0-105.0); MEAN CORPUSCULAR HEMOGLOBIN 28.1 pg (25.0-35.0); MEAN PLATELET VOLUME 11.4 fl (7.0-11.0); MONO # 0.6 (0.1-0.6); MONO % 6.2 % (1.0-6.0); RED CELL DISTRIBUTION WIDTH 17.4 % (11.5-14.5); WHITE BLOOD COUNT 10.3 10^3/ul (4.5-11.0)
[2017-06-21 07:35] LABS: ALB/GLOB RATIO 1.1 (1.1-1.8); BILIRUBIN,TOTAL 0.9 mg/dL (0.2-1.3); CALCIUM 7.8 mg/dL (8.4-10.5); POTASSIUM 5.4 mmol/L (3.6-5.0); TOTAL PROTEIN 6.1 g/dL (5.8-8.3)
--- NOTE | 2017-06-21 08:29 | CP.PCM.PN ---
<Andres Mckeon - Last Filed: 06/21/17 08:25> Subjective - Date & Time of Evaluation Date of Evaluation: 06/21/17 Time of Evaluation: 08:25 - Subjective Subjective: 87 year old male patient 1 day s/p right leg wound debridement was seen at bedside this morning. Patient is seen resting comfortably, confused but NAD. Patient is resting comfortably in bed. Patient reports continued pain to bilateral lower extremities. Patient denies N/V/F/D/C/SOB/calf pain. No other pedal complaints at this time. Objective - Vital Signs/Intake and Output Vital Signs (last 24 hours): Temp Pulse Resp BP Pulse Ox 97.1 F L 71 20 140/62 94 L 06/21/17 00:21 06/21/17 00:21 06/21/17 00:21 06/21/17 00:21 06/21/17 00:21 Intake and Output: 06/21/17 06/21/17 06:59 18:59 Intake Total 2530 Output Total 300 Balance 2230 - Medications Medications: Current Medications Acetaminophen (Tylenol 325mg Tab) 650 mg PO Q6H PRN PRN Reason: Pain, moderate (4-7) Last Admin: 06/20/17 21:09 Dose: 650 mg Albuterol/Ipratropium (Duoneb 3 Mg/0.5 Mg (3 Ml) Ud) 3 ml IH [id number] [facility] Last Admin: 06/21/17 07:34 Dose: 3 ml Albuterol/Ipratropium (Duoneb 3 Mg/0.5 Mg (3 Ml) Ud) 3 ml IH Q2H PRN PRN Reason: Shortness of Breath Last Admin: 06/20/17 23:36 Dose: 3 ml Aspirin (Ecotrin) 81 mg PO DAILY [facility] Last Admin: 06/19/17 10:42 Dose: 81 mg Atorvastatin Calcium (Lipitor) 10 mg PO DAILY [facility] Last Admin: 06/20/17 10:29 Dose: Not Given Clopidogrel Bisulfate (Plavix) 75 mg PO DAILY [facility] Last Admin: 06/20/17 10:30 Dose: Not Given Heparin Sodium (Porcine) (Heparin) 5,000 units SC Q12 [facility] PRN Reason: Protocol Last Admin: 06/19/17 11:07 Dose: 5,000 units Hydralazine HCl (Apresoline) 10 mg IVP Q6 PRN PRN Reason: high blood pressure Ceftriaxone Sodium (Rocephin 1 Gram Ivpb) 1 gm in 100 mls @ 100 mls/hr IVPB DAILY [facility] PRN Reason: Protocol Last Admin: 06/20/17 18:28 Dose: 100 mls/hr Vancomycin HCl (Vancomycin 1gm) 1 gm in 250 mls @ 167 mls/hr IVPB DAILY [facility] PRN Reason: Protocol Last Admin: 06/20/17 21:11 Dose: 167 mls/hr Isosorbide Mononitrate (Imdur) 60 mg PO DAILY [facility] Last Admin: 06/20/17 10:07 Dose: Not Given Methylprednisolone (Solu-Medrol) 20 mg IVP Q12 [facility] Last Admin: 06/20/17 21:12 Dose: 20 mg Metoprolol Tartrate (Lopressor) 25 mg PO BID [facility] Last Admin: 06/20/17 18:29 Dose: 25 mg Mupirocin (Bactroban Ointment) 0 gm TOP BID [facility] Last Admin: 06/20/17 18:28 Dose: Not Given Pantoprazole Sodium (Protonix Susp) 40 mg GT 0600 [facility] Last Admin: 06/21/17 06:32 Dose: 40 mg - Labs Labs: 06/21/17 07:00 06/21/17 07:00 PT 14.7 Seconds (9.9-11.8) H 06/13/17 17:33 INR 1.36 (0.93-1.08) H 06/13/17 17:33 APTT 26.6 Seconds (23.7-30.8) 06/19/17 05:10 - Constitutional Appears: Well, Non-toxic, No Acute Distress - Extremities Exam Additional comments: Bilateral lower extremity exam DERM: Right: Open ulcerations to anterior and lateral aspect of leg measuring 15cm x 5cm x 0.2cm with granular base. Moderate sero-sanguinous drainage is noted. No mal-odor is noted. No purulent drainage is noted anymore after the wound debridement. Erythema to leg has decreased post debridement. LeftL: Open ulcerations to anterior aspect of leg measuring 11cm x 5cm x 0.2cm with mix of fibrotic and granular base. Moderate sero-sanguinous drainage is noted. No mal-odor is present. No purulent discharge noted. Erythema noted around the wound marings >2cm VASC: Palpable DP and PT noted 1/4 bilaterally. SERVICES CLERK less than 3 seconds noted to all digits - Neurological Exam Neurological Exam: Alert. absent: Oriented x3 - Skin Skin Exam: Normal Color, Warm Assessment and Plan - Assessment and Plan (Free Text) Assessment: 87 yo male patient presenting with infected ulcerations to anterior aspect of bilateral legs Right worse than Left ; 1day s/p right leg wound debridement Plan: Patient was seen, evaluated and treated with all questions and concerns addressed labs and vitals reviewed Bilateral legs dressed with Bactroban, Telfa, DSD Continue IV Abx per ID Podiatry will continue to follow in-house <Noam Cummings - Last Filed: 06/22/17 10:20> Objective - Vital Signs/Intake and Output Vital Signs (last 24 hours): Temp Pulse Resp BP Pulse Ox 98.6 F 73 20 171/88 H 98 06/22/17 07:44 06/22/17 07:44 06/22/17 07:44 06/22/17 07:44 06/22/17 07:44 Intake and Output: 06/22/17 06/22/17 06:59 18:59 Intake Total 540 Output Total 175 Balance 365 - Medications Medications: Current Medications Acetaminophen (Tylenol 325mg Tab) 650 mg PO Q6H PRN PRN Reason: Pain, moderate (4-7) Last Admin: 06/20/17 21:09 Dose: 650 mg Albuterol/Ipratropium (Duoneb 3 Mg/0.5 Mg (3 Ml) Ud) 3 ml IH [id number] [facility] Last Admin: 06/22/17 07:28 Dose: 3 ml Albuterol/Ipratropium (Duoneb 3 Mg/0.5 Mg (3 Ml) Ud) 3 ml IH Q2H PRN PRN Reason: Shortness of Breath Last Admin: 06/20/17 23:36 Dose: 3 ml Aspirin (Ecotrin) 81 mg PO DAILY [facility] Last Admin: 06/21/17 10:28 Dose: 81 mg Atorvastatin Calcium (Lipitor) 10 mg PO DAILY [facility] Last Admin: 06/21/17 10:19 Dose: 10 mg Heparin Sodium (Porcine) (Heparin) 5,000 units SC Q12 [facility] PRN Reason: Protocol Last Admin: 06/21/17 22:24 Dose: 5,000 units Hydralazine HCl (Apresoline) 10 mg IVP Q6 PRN PRN Reason: high blood pressure Ciprofloxacin (Cipro 200mg/100ml D5w) 100 mls @ 67 mls/hr IVPB Q12 [facility] PRN Reason: Protocol Stop: 08/02/17 22:01 Last Admin: 06/21/17 22:24 Dose: 67 mls/hr Isosorbide Mononitrate (Imdur) 60 mg PO DAILY [facility] Last Admin: 06/21/17 10:19 Dose: 60 mg Losartan Potassium (Cozaar) 25 mg PO DAILY [facility] Last Admin: 06/21/17 12:40 Dose: Not Given Metoprolol Tartrate (Lopressor) 50 mg PO BID [facility] Last Admin: 06/21/17 17:20 Dose: 50 mg Mupirocin (Bactroban Ointment) 0 gm TOP BID [facility] Last Admin: 06/21/17 18:06 Dose: Not Given Pantoprazole Sodium (Protonix Ec Tab) 40 mg PO 0600 [facility] Last Admin: 06/22/17 06:57 Dose: 40 mg Prednisone (Prednisone Tab) 30 mg PO DAILY [facility] Tamsulosin HCl (Flomax) 0.4 mg PO DAILY [facility] Last Admin: 06/21/17 17:18 Dose: 0.4 mg - Labs Labs: 06/22/17 06:00 06/22/17 06:00 PT 14.7 Seconds (9.9-11.8) H 06/13/17 17:33 INR 1.36 (0.93-1.08) H 06/13/17 17:33 APTT 26.6 Seconds (23.7-30.8) 06/19/17 05:10 Attending/Attestation - Attestation I have personally seen and examined this patient.: Yes I have fully participated in the care of the patient.: Yes I have reviewed all pertinent clinical information, including history, physical exam and plan: Yes
--- NOTE | 2017-06-21 08:44 | PN ---
DATE: 06/21/2017 SUBJECTIVE: The patient appears comfortable this morning. He is not short of breath at rest. PHYSICAL EXAMINATION: VITAL SIGNS: Temperature is 97.1, pulse is 71, respirations 18/20, blood pressure 140/62. Oxygen saturation on nasal cannula is 94% to 95%. HEENT: Normocephalic and atraumatic. NECK: No JVD. CARDIOVASCULAR: Systolic ejection murmur at the lower left sternal border. No S3 gallop. LUNGS: Decreased breath sounds at the bases. Less rhonchi. No wheezing. EXTREMITIES: Mild edema. No cyanosis. No clubbing. Calves are nontender to palpation. GASTROINTESTINAL: Abdomen is soft, nontender, and nondistended. Bowel sounds are positive. SKIN: Cellulitic changes on both lower extremities are noted. NEUROLOGICAL: Limited at the present time. IMPRESSION: 1. Status post respiratory failure. 2. Subacute cerebrovascular accident. 3. Chronic obstructive pulmonary disease. 4. Bilateral pneumonia. 5. Myocardial infarction. 6. Renal insufficiency. 7. Electrolyte abnormalities. PLAN: The patient appears comfortable this morning. He is not short of breath at rest. He states he is feeling much better overall. On physical exam, his bronchospasm is certainly less. In addition, the oxygen saturation on nasal cannula is 94% to 95%. I will continue with the current nebulizer treatments and low-dose intravenous steroids for now. The patient remains on intravenous antibiotic therapy-as per infectious disease. There are no temperatures noted. The leukocytosis has resolved. I would continue with the treatment for myocardial infarction as per cardiology. Input by Dr. Gomez is noted. Clinical status of the patient is significantly improved. However, again, the overall status/prognosis of this patient does remain guarded. I will discuss the above with the attending physician. I did discuss the above with Dr. Julien at length yesterday. [place] MD [email or web address]
[2017-06-21] MEDS: Vancomycin 1gm in NS 250ml 1 GM/250 ML BAG IVPB SCH (10:03)
[2017-06-21] MEDS: cefTRIAXone 1 gm 1 GM/100 ML BAG IVPB SCH (10:12)
[2017-06-21] MEDS: MethylPREDNISolone 40 mg Vial IVP SCH ×2 (10:20→22:36)
--- NOTE | 2017-06-21 11:06 | CP.PCM.PN ---
Subjective - Date & Time of Evaluation Date of Evaluation: 06/21/17 Time of Evaluation: 11:03 - Subjective Subjective: Follow up Nephrology Consultation: Assessment: Stable Acute Hypercapnic respi failure s/p mechanical intubation, post-hypercapnic metabolic alkalosis Acute Kidney Injury (N17.9) likely due to dehydration as evident by Hypernatremia. Hyperkalemia: improved Hypertensive Chronic Kidney Disease (I12.9) Chronic Kidney Disease (N18.9) Stage 3 with 600 mg proteinuria (R80.9) possibly due to HTN/vasc disease HTN (I12.9), pulmonary fibrosis, chronic systolic CHF, bladder tumor, b/l kidney cysts Altered mental status NSTEMI Plan No acute need for renal replacement therapy at this time. Hypertension controlled with meds as ordered. Patient not on ACEI/ARB due to JASWINDER. Monitor Input/Output, daily weights and renal function with basic metabolic panel while in hospital hold lasix due to rise in cr, Na and K. started D5w @ 75 ml/hr GN serology with complement and ANCA neg. kidney biopsy not indicated. Dose meds/antibiotics for reduced GFR ~ 50. Avoid fleets enema/magnesium based laxatives. Avoid nephrotoxins/NSAIDs/ iodinated contrast (unless needed emergently) Glycemic control Further work up/management as per primary team Thanks for allowing me to participate in care of your patient. Please call if any Qs. d/w team. pt planned for d/c to rehab soon. stable from renal perspective. encourage oral intake. f/up in office 1-2 weeks post d/c Dr Edvin Nj Office: [phone] Chief Complaint; none today HPI: Pt is a 87 y/o M with hx of CHF (EF 30-35%), COPD with pulmonary fibrosis, CKD stage 3 (baseline cr 1.1-1.4 mg/dL), HTN, bladder tumor came to ER with altered mental status and shortness of breath and intubated for hypercapnic respi failure, transferred to ICU, renal consult requested for hypernatremia and JASWINDER. got extubated 06/15/17. ROS: Pt mostly sleeping, no new complaints. Physical Examination: General Appearance: Comfortable, in no acute respiratory distress. Vitals reviewed and noted as below Head; Atraumatic, normocephalic Neck; supple no lymphadenopathy, no thyromegaly or bruit Lungs: Normal respiratory rate/effort. Breath sounds bilateral with basal crackles Heart: Normal rate. s1s2 normal. No rub or gallop. SM at left sternal border Extremities: no edema. No varicose veins. has chronic venous stasis changes. both legs dressed, known to have chronic leg wounds Neurological: Patient is mostly sleeping Skin: Warm and dry. Normal turgor. No rash. Palpitation: Normal elasticity for age. has upper extremity echymoses/swelling + Abdomen: Abdomen is soft. Bowel sounds +. There is no abdominal tenderness, no guarding/rigidity no organomegaly MSK: no joint tenderness or swelling. Digits and nails normal, no deformity : kidney or bladder not palpable. has catheter Labs/imaging/EKG reviewed. Past medical history, past surgical history, family history, social history, allergy reviewed and noted as below Family hx: Unable to obtain Work up UA done by me showed 30+ protein large blood and LE ++ SG 1.025. microscopy showed very few granular casts, numerous WBCs and also monomorphic RBCs renal sono 2016: b/l renal cysts Objective - Vital Signs/Intake and Output Vital Signs (last 24 hours): Temp Pulse Resp BP Pulse Ox 97.4 F L 70 22 156/90 H 92 L 06/21/17 07:00 06/21/17 10:19 06/21/17 07:00 06/21/17 10:19 06/21/17 07:00 Intake and Output: 06/21/17 06/21/17 06:59 18:59 Intake Total 2530 300 Output Total 300 Balance 2230 300 - Medications Medications: Current Medications Acetaminophen (Tylenol 325mg Tab) 650 mg PO Q6H PRN PRN Reason: Pain, moderate (4-7) Last Admin: 06/20/17 21:09 Dose: 650 mg Albuterol/Ipratropium (Duoneb 3 Mg/0.5 Mg (3 Ml) Ud) 3 ml IH [id number] [facility] Last Admin: 06/21/17 07:34 Dose: 3 ml Albuterol/Ipratropium (Duoneb 3 Mg/0.5 Mg (3 Ml) Ud) 3 ml IH Q2H PRN PRN Reason: Shortness of Breath Last Admin: 06/20/17 23:36 Dose: 3 ml Aspirin (Ecotrin) 81 mg PO DAILY [facility] Last Admin: 06/21/17 10:28 Dose: 81 mg Atorvastatin Calcium (Lipitor) 10 mg PO DAILY [facility] Last Admin: 06/21/17 10:19 Dose: 10 mg Heparin Sodium (Porcine) (Heparin) 5,000 units SC Q12 [facility] PRN Reason: Protocol Last Admin: 06/21/17 10:28 Dose: 5,000 units Hydralazine HCl (Apresoline) 10 mg IVP Q6 PRN PRN Reason: high blood pressure Dextrose (Dextrose 5% In Water 1000 Ml) 1,000 mls @ 75 mls/hr IV .[id number] [facility] Stop: 06/22/17 00:31 Last Admin: 06/21/17 10:45 Dose: 75 mls/hr Ciprofloxacin (Cipro 200mg/100ml D5w) 100 mls @ 67 mls/hr IVPB Q12 [facility] PRN Reason: Protocol Stop: 08/02/17 22:01 Isosorbide Mononitrate (Imdur) 60 mg PO DAILY [facility] Last Admin: 06/21/17 10:19 Dose: 60 mg Methylprednisolone (Solu-Medrol) 20 mg IVP Q12 [facility] Last Admin: 06/21/17 10:20 Dose: 20 mg Metoprolol Tartrate (Lopressor) 50 mg PO BID [facility] Mupirocin (Bactroban Ointment) 0 gm TOP BID [facility] Last Admin: 06/21/17 10:23 Dose: Not Given Pantoprazole Sodium (Protonix Susp) 40 mg GT 0600 [facility] Last Admin: 06/21/17 06:32 Dose: 40 mg - Labs Labs: 06/21/17 07:00 06/21/17 07:00 PT 14.7 Seconds (9.9-11.8) H 06/13/17 17:33 INR 1.36 (0.93-1.08) H 06/13/17 17:33 APTT 26.6 Seconds (23.7-30.8) 06/19/17 05:10
--- NOTE | 2017-06-21 13:12 | PN ---
DATE: 06/21/2017 SUBJECTIVE: The patient is seen lying bed on 5 R. He states he feels better. He underwent debridement of his leg wounds by Dr. Buitrago. A PICC line has been placed as well. He denies any chest pain or dyspnea. CURRENT MEDICATIONS: Remains DuoNeb inhaler, Ecotrin, subcutaneous heparin, Imdur 60 mg daily, Lipitor 10 mg daily, metoprolol 25 mg b.i.d., Plavix 75 mg daily, Protonix 40 mg daily, Rocephin, vancomycin, and Solu-Medrol 20 mg, q.12 hours. PHYSICAL EXAMINATION: GENERAL: He is an elderly man who appears comfortable at rest. VITAL SIGNS: His blood pressure is 156/90 with a pulse of 70, respirations are 16, and he is currently afebrile. NECK: No JVD. CHEST: Few scattered rhonchi heard. HEART: PMI displaced laterally with systolic murmur in the left sternal border. ABDOMEN: Soft and nontender with normoactive bowel sounds. EXTREMITIES: Both legs are wrapped and feet are in boots. DIAGNOSTIC DATA: Potassium 5.4, BUN and creatinine 66 and 1.6, white count 10.3, hematocrit 12.4 and 40.0 and platelet count of 147,000. IMPRESSION: 1. Recent respiratory failure, clinically improved. 2. Bilateral leg cellulitis, currently on antibiotics therapy for Klebsiella and Staphylococcus aureus. 3. Severe left ventricular dysfunction. 4. Moderately severe aortic insufficiency. 5. Mild aortic stenosis. 6. Moderately severe mitral regurgitation. 7. Coronary artery disease, status post remote myocardial infarction. 8. Chronic renal insufficiency. RECOMMENDATIONS: His current medications will be continued for now. His metoprolol dose will be increased to 50 mg b.i.d. for better blood pressure control and antianginal benefit and Plavix does not need to be continued at the present time. We will continue to follow and make further recommendations as appropriate. Continue conservative cardiac management as advised at this time. Seth Gomez MD
--- NOTE | 2017-06-21 18:05 | CP.PCM.PN ---
<GENTRY JONES - Last Filed: 06/21/17 18:02> Subjective - Date & Time of Evaluation Date of Evaluation: 06/21/17 Time of Evaluation: 07:30 - Subjective Subjective: Gentry Jones DO PGY1 - Internal Medicine Progress Note Patient seen and examined at bedside. Nurse reports no acute events overnight. Patient had surgery yesterday with podiatry for debridement of RLE. Patient currently has no particular complaints and denies any CP or SOB, though he is still requiring IV abx and IV steroids per pulm, and has not been cleared for discharge. He also denies abdominal pain, F/C, N/V/D/C. He is AAOx3 and is satting well on 3L NC. Diffuse UE ecchymoses still appear to be healing with no new ones. Objective - Vital Signs/Intake and Output Vital Signs (last 24 hours): Temp Pulse Resp BP Pulse Ox 97.6 F 72 20 130/64 95 06/21/17 16:05 06/21/17 17:20 06/21/17 16:05 06/21/17 17:20 06/21/17 16:05 Intake and Output: 06/21/17 06/21/17 06:59 18:59 Intake Total 2530 300 Output Total 300 Balance 2230 300 - Medications Medications: Current Medications Acetaminophen (Tylenol 325mg Tab) 650 mg PO Q6H PRN PRN Reason: Pain, moderate (4-7) Last Admin: 06/20/17 21:09 Dose: 650 mg Albuterol/Ipratropium (Duoneb 3 Mg/0.5 Mg (3 Ml) Ud) 3 ml IH [id number] [facility] Last Admin: 06/21/17 13:16 Dose: 3 ml Albuterol/Ipratropium (Duoneb 3 Mg/0.5 Mg (3 Ml) Ud) 3 ml IH Q2H PRN PRN Reason: Shortness of Breath Last Admin: 06/20/17 23:36 Dose: 3 ml Aspirin (Ecotrin) 81 mg PO DAILY [facility] Last Admin: 06/21/17 10:28 Dose: 81 mg Atorvastatin Calcium (Lipitor) 10 mg PO DAILY [facility] Last Admin: 06/21/17 10:19 Dose: 10 mg Heparin Sodium (Porcine) (Heparin) 5,000 units SC Q12 [facility] PRN Reason: Protocol Last Admin: 06/21/17 10:28 Dose: 5,000 units Hydralazine HCl (Apresoline) 10 mg IVP Q6 PRN PRN Reason: high blood pressure Dextrose (Dextrose 5% In Water 1000 Ml) 1,000 mls @ 75 mls/hr IV .[id number] [facility] Stop: 06/22/17 00:31 Last Admin: 06/21/17 10:45 Dose: 75 mls/hr Ciprofloxacin (Cipro 200mg/100ml D5w) 100 mls @ 67 mls/hr IVPB Q12 [facility] PRN Reason: Protocol Stop: 08/02/17 22:01 Isosorbide Mononitrate (Imdur) 60 mg PO DAILY [facility] Last Admin: 06/21/17 10:19 Dose: 60 mg Losartan Potassium (Cozaar) 25 mg PO DAILY [facility] Last Admin: 06/21/17 12:40 Dose: Not Given Methylprednisolone (Solu-Medrol) 20 mg IVP Q12 [facility] Last Admin: 06/21/17 10:20 Dose: 20 mg Metoprolol Tartrate (Lopressor) 50 mg PO BID [facility] Last Admin: 06/21/17 17:20 Dose: 50 mg Mupirocin (Bactroban Ointment) 0 gm TOP BID [facility] Last Admin: 06/21/17 10:23 Dose: Not Given Pantoprazole Sodium (Protonix Susp) 40 mg GT 0600 [facility] Last Admin: 06/21/17 06:32 Dose: 40 mg Tamsulosin HCl (Flomax) 0.4 mg PO DAILY [facility] Last Admin: 06/21/17 17:18 Dose: 0.4 mg - Labs Labs: 06/21/17 07:00 06/21/17 07:00 PT 14.7 Seconds (9.9-11.8) H 06/13/17 17:33 INR 1.36 (0.93-1.08) H 06/13/17 17:33 APTT 26.6 Seconds (23.7-30.8) 06/19/17 05:10 - Constitutional Appears: Non-toxic, No Acute Distress, Chronically Ill - Head Exam Head Exam: ATRAUMATIC, NORMOCEPHALIC - Eye Exam Eye Exam: Normal appearance, PERRL - ENT Exam ENT Exam: Mucous Membranes Moist - Neck Exam Neck Exam: absent: Lymphadenopathy, Thyromegaly - Respiratory Exam Respiratory Exam: Clear to Ausculation Bilateral, NORMAL BREATHING PATTERN - Cardiovascular Exam Cardiovascular Exam: RRR, +S1, +S2 - GI/Abdominal Exam GI & Abdominal Exam: Soft, Normal Bowel Sounds. absent: Tenderness - Extremities Exam Additional comments: B/L lower extremities bandaged circumfrentially from ankles to knees, dressings appear CDI. Mild erythema and trace edema noted in b/l ankles and feet - Neurological Exam Neurological Exam: Alert, Awake, Oriented x3 - Psychiatric Exam Psychiatric exam: Normal Affect, Normal Mood - Skin Additional comments: Diffuse ecchymoses in various stages of healing on b/l UE. No new ecchymoses. Assessment and Plan - Assessment and Plan (Free Text) Assessment: This is an 87 yo M with PMH of COPD, CHF with LVEF 17%, Paget's disease, and HTN who initially presented with AMS and hypercapnic respiratory failure requiring intubation/mechanical ventilation. Pt is 7 days s/p extubation, AAOx3 , following commands and mentating well. Remains on IV abx for b/l LE cellulitis positive for MRSA. Plan: 1) Acute Hypercapnic Respiratory Failure: Resolved -2/2 CHF exacerbation in setting of NSTEMI/demand ischemia and history of severe COPD -6 days s/p extubation, tolerating well -continue Solumedrol 20mg IV Q12H - tapering down slowly - Nebs Q6H tomer/Q2 prn, as per Pulm -Satting well on O2 NC, maintain SaO2 88-95%, avoid persistently elevated SaO2 to prevent suppression of respiratory drive in COPD pt -Heparin drip d/c'd >48hrs post NV, will continue with conservative management at this time, no new stress test. -Cardio (Santa), Neuro (Cindi Castro), and Pulm (Jayy) consulted, appreciate all recs 2) Altered Mental Status: Resolved -2/2 Hypercapnic resp failure vs Sepsis from LE cellulitis vs ACS -Head CT: small hypodense lacunar infarct within the left cerebellar lobe, considered to be subacute -UDS (+) benzos, no benzos listed in home medication charting -MRI showing chronic microvascular changes, MRA unremarkable -EEG completed, significant for diffuse slowing "drowsy". Was done when sedated. -Blood cx showing no growth x 5 days, urine cx no growth -Wound cxs: +MRSA, Right leg WCX: E.Coli, Staph. Aureus (Resistant to PCN but Oxa sensitive); Left leg WCX: Klebsella Oxytosa, Staph Aureus -Continue Vancomycin and Rocephin per ID -ID (Mario) and Podiatry (Iftikhar) consulted, appreciate all recs; Cardio, Neuro, and Pulm also on board -Continue ASA, plavix, Lipitor 3) NSTEMI -Troponins peaked at 1.16, plateued and then trended down -Continue conservative management, no stress test at this time per cardio. Previously on heparin drip, discontinued after 48hrs -Off heparin, platelet count trending back up again -Continue Metoprolol, Imdur, Statin, ASA, Plavix -Pt is hypertensive today and JASWINDER resolved, will restart Cozaar -Cardio consulted, appreciate all recs 4) Chronic venous stasis ulceration and b/l LE cellulitis -B/L lower extremity wounds currently being managed by podiatry -Daily dressing changes and topical antibiotic application -Wound cxs: Right leg WCX: E.Coli, Staph. Aureus (Resistant to PCN but Oxa sensitive); Left leg WCX: Klebsella Oxytosa, Staph Aureus -Off rocephin and vanc per ID, as C&S shows sensitivity to cipro. Switched to IV cipro for 10d course -Patient had surgery yesterday for debridement of RLE wound nonviable tissue with podiatry 5) Congestive Heart Failure (Systolic) -Last echo shows LVEF 17% -Holding lasix per nephro for free water deficit while hydrating with D5W@75cc/ hr. Will restart lasix tomorrow. -Strict I&O's -Daily weights -Cardio consulted, appreciate all recs 6) Acute Kidney Injury: stable -Discontinued lasix yesterday after acute elevation in creatinine level, now improved. Will continue holding lasix per nephro, for free water deficit. -monitor I&Os -Nephro (Ondina) consulted, appreciate all recs 7) Hypertension -continue Lopressor 50mg PO BID, Hydralazine 10mg Q6H PRN, Imdur 60mg PO QD -Pt hypertensive today, will restart home Cozaar 25 mg PO QD 8) Pseudohypocalcemia -Noted to have mild hypocalcemia on today's labs, with normal albumin. Corrected calcium normal 9) H/o BPH -Restart home Flomax Ppx: Heparin SQ for DVT, Protonix for GI Patient reviewed and discussed with attending <Car Heck - Last Filed: 07/16/17 11:51> Objective - Vital Signs/Intake and Output Vital Signs (last 24 hours): Temp Pulse Resp BP Pulse Ox 97.6 F 69 18 180/78 H 94 L 06/23/17 07:30 06/23/17 09:56 06/23/17 07:30 06/23/17 09:56 06/23/17 07:30 - Labs Labs: 06/23/17 10:30 06/23/17 10:30 PT 14.7 Seconds (9.9-11.8) H 06/13/17 17:33 INR 1.36 (0.93-1.08) H 06/13/17 17:33 APTT 26.6 Seconds (23.7-30.8) 06/19/17 05:10 Attending/Attestation - Attestation I have personally seen and examined this patient.: Yes I have fully participated in the care of the patient.: Yes I have reviewed all pertinent clinical information, including history, physical exam and plan: Yes Notes (Text): 1) Acute Hypercapnic Respiratory Failure: Resolved -2/2 CHF exacerbation in setting of NSTEMI/demand ischemia and history of severe COPD 2) Altered Mental Status: Resolved possibly due to Hypercapnic resp failure/ toxic encephalopathy Sepsis from LE cellulitis 3) NSTEMI 4) Chronic venous stasis ulceration and b/l LE cellulitis
--- NOTE | 2017-06-21 18:15 | CP.PCM.PN ---
Subjective - Date & Time of Evaluation Date of Evaluation: 06/21/17 Time of Evaluation: 17:30 - Subjective Subjective: Infectious Disease Follow Up: June 21, 2017 87 yo male brought in for lethargy and AMS. The patient has an extensive medical history that includes COPD, CHF last known EF of 30-35% in 08/2016, HTN , Paget's disease and PAD. The patient required intubation and ventilation [place] [facility] [place] He has been extubated. Remains extubated and feeling better. He is much more awake and alert today. No major complaints. He does complain of bilateral lower extremity pain. Went to OR for debridement of bilateral stage III ulcers of the lower extremities. Currently on the med-surg floor. He is growing Klebsiella and Staph Aureus sensitive to Cipro. Objective - Vital Signs/Intake and Output Vital Signs (last 24 hours): Temp Pulse Resp BP Pulse Ox 97.6 F 72 20 130/64 95 06/21/17 16:05 06/21/17 17:20 06/21/17 16:05 06/21/17 17:20 06/21/17 16:05 Intake and Output: 06/21/17 06/21/17 06:59 18:59 Intake Total 2530 300 Output Total 300 Balance 2230 300 - Medications Medications: Current Medications Acetaminophen (Tylenol 325mg Tab) 650 mg PO Q6H PRN PRN Reason: Pain, moderate (4-7) Last Admin: 06/20/17 21:09 Dose: 650 mg Albuterol/Ipratropium (Duoneb 3 Mg/0.5 Mg (3 Ml) Ud) 3 ml IH [id number] [facility] Last Admin: 06/21/17 13:16 Dose: 3 ml Albuterol/Ipratropium (Duoneb 3 Mg/0.5 Mg (3 Ml) Ud) 3 ml IH Q2H PRN PRN Reason: Shortness of Breath Last Admin: 06/20/17 23:36 Dose: 3 ml Aspirin (Ecotrin) 81 mg PO DAILY [facility] Last Admin: 06/21/17 10:28 Dose: 81 mg Atorvastatin Calcium (Lipitor) 10 mg PO DAILY [facility] Last Admin: 06/21/17 10:19 Dose: 10 mg Heparin Sodium (Porcine) (Heparin) 5,000 units SC Q12 [facility] PRN Reason: Protocol Last Admin: 06/21/17 10:28 Dose: 5,000 units Hydralazine HCl (Apresoline) 10 mg IVP Q6 PRN PRN Reason: high blood pressure Dextrose (Dextrose 5% In Water 1000 Ml) 1,000 mls @ 75 mls/hr IV .[id number] [facility] Stop: 06/22/17 00:31 Last Admin: 06/21/17 10:45 Dose: 75 mls/hr Ciprofloxacin (Cipro 200mg/100ml D5w) 100 mls @ 67 mls/hr IVPB Q12 [facility] PRN Reason: Protocol Stop: 08/02/17 22:01 Isosorbide Mononitrate (Imdur) 60 mg PO DAILY [facility] Last Admin: 06/21/17 10:19 Dose: 60 mg Losartan Potassium (Cozaar) 25 mg PO DAILY [facility] Last Admin: 06/21/17 12:40 Dose: Not Given Methylprednisolone (Solu-Medrol) 20 mg IVP Q12 [facility] Last Admin: 06/21/17 10:20 Dose: 20 mg Metoprolol Tartrate (Lopressor) 50 mg PO BID [facility] Last Admin: 06/21/17 17:20 Dose: 50 mg Mupirocin (Bactroban Ointment) 0 gm TOP BID [facility] Last Admin: 06/21/17 10:23 Dose: Not Given Pantoprazole Sodium (Protonix Susp) 40 mg GT 0600 [facility] Last Admin: 06/21/17 06:32 Dose: 40 mg Tamsulosin HCl (Flomax) 0.4 mg PO DAILY [facility] Last Admin: 06/21/17 17:18 Dose: 0.4 mg - Labs Labs: 06/21/17 07:00 06/21/17 07:00 PT 14.7 Seconds (9.9-11.8) H 06/13/17 17:33 INR 1.36 (0.93-1.08) H 06/13/17 17:33 APTT 26.6 Seconds (23.7-30.8) 06/19/17 05:10 - Constitutional Appears: Non-toxic, No Acute Distress, Chronically Ill - Head Exam Head Exam: ATRAUMATIC, NORMOCEPHALIC - Eye Exam Eye Exam: EOMI, PERRL Pupil Exam: NORMAL ACCOMODATION, PERRL - ENT Exam ENT Exam: Mucous Membranes Moist, Normal External Ear Exam, TM's Normal Bilaterally - Neck Exam Neck Exam: Full ROM, Normal Inspection - Respiratory Exam Respiratory Exam: Clear to Ausculation Bilateral, NORMAL BREATHING PATTERN. absent: Rales, Rhonchi, Wheezes - Cardiovascular Exam Cardiovascular Exam: REGULAR RHYTHM, RRR, +S1, +S2 - GI/Abdominal Exam GI & Abdominal Exam: Soft, Normal Bowel Sounds. absent: Distended, Tenderness - Extremities Exam Additional comments: +Heel protectors +Venous stasis skin changes B/L LE wrapped with curlex mild cellulitis of the bilateral lower extremities and chronic venous stasis. open ulcerations on the bilateral legs anteriorly. wounds are malodorous. now s/p debridement of the ulcerations. - Neurological Exam Neurological Exam: Alert, Awake, CN II-XII Intact, Oriented x3 - Psychiatric Exam Psychiatric exam: Normal Affect, Normal Mood - Skin Additional comments: As above Assessment and Plan - Assessment and Plan (Free Text) Assessment: 87 yo male with AMS and lethargy. Etiology unclear. Broad spectrum coverage for now with Rocephin and Vancomycin treatment. Ignacio cultures. Imaging studies. Patient was intubated and ventilated but was extubated recently. Remains in ICU currently. He is more awake and alert now. Overall improving. Supportive care. Obtain procalcitonin... which was 0.48 which is normal. Follow up WBC and fever trend. Urine drug screen positive for Benzodiazepine. Respiratory failure. Renal insufficiency (acute or chronic?). Patient has a history of hypertension and systolic congestive heart failure. Patient improving and is mentally back to his normal state at this time. His only complaint is of bilateral lower leg pains. Went to OR Sunday morning for debridement of unhealthy tissue of the legs. No additional issues. Cultures showing Staph Aureus and Klebsiella. The patient started on Cipro IV today. He will need 10 days of treatment although it does not have to be all by IV. Thank you for allowing me to participate in the care of the patient, we will follow with you.
[2017-06-21] MEDS: Ciprofloxacin 200mg/100ml D5W 100 ML IVPB SCH (22:24)
[2017-06-22] MEDS: Albuterol-Ipratrop 3 mg / 0.5 (3 ml) UD IH SCH ×4 (02:07→19:52)
[2017-06-22 06:18] LABS: GRAN # 9.94 (1.4-6.5); GRAN % 90.4 % (50.0-68.0); HEMATOCRIT 38.4 % (42.0-52.0); LYMPH # 0.2 (1.2-3.4); MEAN CELL VOLUME 90.6 fl (80.0-105.0); MEAN CORPUSCULAR HEMOGLOBIN 27.8 pg (25.0-35.0); MEAN CORPUSCULAR HGB CONC 30.7 g/dl (31.0-37.0); MONO # 0.8 (0.1-0.6); MONO % 7.6 % (1.0-6.0); PLATELET COUNT 133 10^3/uL (120.0-450.0); RED CELL DISTRIBUTION WIDTH 17.3 % (11.5-14.5)
[2017-06-22] MEDS: Pantoprazole 40 mg EC Tab PO SCH (06:57)
[2017-06-22 07:00] LABS: CALCIUM 8.2 mg/dL (8.4-10.5); TOTAL PROTEIN 5.8 g/dL (5.8-8.3)
[2017-06-22 07:03] LABS: BAND 3 % (0-2); NEUTROPHIL 89 % (50.0-70.0); PLATELET ESTIMATE NORMAL (NORMAL)
[2017-06-22] MEDS ORDERED: Dextrose 50% SYRINGE Inj (50 ml) IVP ONE (07:18)
--- NOTE | 2017-06-22 07:29 | PN ---
DATE: 06/22/2017 SUBJECTIVE: The patient appears comfortable this morning. He is not short of breath at rest. PHYSICAL EXAMINATION: VITAL SIGNS: Temperature is 97.5, pulse is 64, respirations 18, blood pressure 163/82. Oxygen saturation on nasal cannula is 98%. HEENT: Normocephalic and atraumatic. NECK: No JVD. CARDIOVASCULAR: Systolic ejection murmur at the lower left sternal border. No S3 gallop. LUNGS: Decreased breath sounds at the bases. Less rhonchi. No wheezing. EXTREMITIES: Mild edema. No cyanosis. No clubbing. Calves are nontender to palpation. GASTROINTESTINAL: Abdomen is soft, nontender, and nondistended. Bowel sounds are positive. SKIN: Cellulitic changes on both lower extremities. NEUROLOGICAL: Limited at the present time. IMPRESSION: 1. Status post respiratory failure. 2. Subacute cerebrovascular accident. 3. Chronic obstructive pulmonary disease. 4. Bilateral pneumonia. 5. Myocardial infarction. 6. Renal insufficiency. 7. Bilateral leg cellulitis. PLAN: The patient appears comfortable this morning. He is not short of breath at rest. He does state to feeling much better overall. On physical exam, his bronchospasm continues to resolve. In addition, the oxygen saturation on nasal cannula is now 98%. I will continue with the current nebulizer treatments and change to oral steroids this morning. I would continue with the treatment for acute myocardial infarction as per cardiology. Input by Dr. Gomez is noted. I would continue with the antibiotic coverage as per infectious disease. I did discuss the case with Dr. Martin at length yesterday. I appreciate his input. The patient is for transfer to the transitional unit today-where he will receive aggressive physical therapy. The move to the transitional unit, I feel, will benefit the patient greatly. I will discuss the above with the attending physician this morning. I will also discuss the above with the son this morning. [place] MD MADHURI
[2017-06-22] MEDS ORDERED: Insulin Regular 1 UNITS/0.01 ML ML SC ONE (07:45)
--- NOTE | 2017-06-22 11:27 | CP.PCM.PN ---
<Renae Kaur - Last Filed: 06/22/17 11:25> Subjective - Date & Time of Evaluation Date of Evaluation: 06/22/17 Time of Evaluation: 11:25 - Subjective Subjective: 87 year old male patient 2 day s/p right leg wound debridement was seen at bedside this morning. Patient is seen resting comfortably, confused but NAD. Patient is resting comfortably in bed. Patient reports continued pain to bilateral lower extremities. Patient denies N/V/F/D/C/SOB/calf pain. No other pedal complaints at this time. Objective - Vital Signs/Intake and Output Vital Signs (last 24 hours): Temp Pulse Resp BP Pulse Ox 98.6 F 73 20 171/88 H 98 06/22/17 07:44 06/22/17 07:44 06/22/17 07:44 06/22/17 07:44 06/22/17 07:44 Intake and Output: 06/22/17 06/22/17 06:59 18:59 Intake Total 540 Output Total 175 Balance 365 - Medications Medications: Current Medications Acetaminophen (Tylenol 325mg Tab) 650 mg PO Q6H PRN PRN Reason: Pain, moderate (4-7) Last Admin: 06/20/17 21:09 Dose: 650 mg Albuterol/Ipratropium (Duoneb 3 Mg/0.5 Mg (3 Ml) Ud) 3 ml IH [id number] [facility] Last Admin: 06/22/17 07:28 Dose: 3 ml Albuterol/Ipratropium (Duoneb 3 Mg/0.5 Mg (3 Ml) Ud) 3 ml IH Q2H PRN PRN Reason: Shortness of Breath Last Admin: 06/20/17 23:36 Dose: 3 ml Aspirin (Ecotrin) 81 mg PO DAILY [facility] Last Admin: 06/21/17 10:28 Dose: 81 mg Atorvastatin Calcium (Lipitor) 10 mg PO DAILY [facility] Last Admin: 06/21/17 10:19 Dose: 10 mg Heparin Sodium (Porcine) (Heparin) 5,000 units SC Q12 [facility] PRN Reason: Protocol Last Admin: 06/21/17 22:24 Dose: 5,000 units Hydralazine HCl (Apresoline) 10 mg IVP Q6 PRN PRN Reason: high blood pressure Ciprofloxacin (Cipro 200mg/100ml D5w) 100 mls @ 67 mls/hr IVPB Q12 [facility] PRN Reason: Protocol Stop: 08/02/17 22:01 Last Admin: 06/21/17 22:24 Dose: 67 mls/hr Isosorbide Mononitrate (Imdur) 60 mg PO DAILY [facility] Last Admin: 06/21/17 10:19 Dose: 60 mg Losartan Potassium (Cozaar) 25 mg PO DAILY [facility] Last Admin: 06/21/17 12:40 Dose: Not Given Metoprolol Tartrate (Lopressor) 50 mg PO BID [facility] Last Admin: 06/21/17 17:20 Dose: 50 mg Mupirocin (Bactroban Ointment) 0 gm TOP BID [facility] Last Admin: 06/22/17 10:52 Dose: Not Given Pantoprazole Sodium (Protonix Ec Tab) 40 mg PO 0600 [facility] Last Admin: 06/22/17 06:57 Dose: 40 mg Prednisone (Prednisone Tab) 30 mg PO DAILY [facility] Tamsulosin HCl (Flomax) 0.4 mg PO DAILY [facility] Last Admin: 06/21/17 17:18 Dose: 0.4 mg - Labs Labs: 06/22/17 06:00 06/22/17 06:00 PT 14.7 Seconds (9.9-11.8) H 06/13/17 17:33 INR 1.36 (0.93-1.08) H 06/13/17 17:33 APTT 26.6 Seconds (23.7-30.8) 06/19/17 05:10 - Constitutional Appears: Well, Non-toxic, No Acute Distress - Extremities Exam Additional comments: Bilateral lower extremity exam DERM: Right: Open ulcerations to anterior and lateral aspect of leg measuring 15cm x 5cm x 0.2cm with granular base. Moderate sero-sanguinous drainage is noted. No mal-odor is noted. No purulent drainage is noted anymore after the wound debridement. Erythema to leg has decreased post debridement. LeftL: Open ulcerations to anterior aspect of leg measuring 11cm x 5cm x 0.2cm with mix of fibrotic and granular base. Moderate sero-sanguinous drainage is noted. No mal-odor is present. No purulent discharge noted. Erythema noted around the wound marings >2cm VASC: Palpable DP and PT noted 1/4 bilaterally. [employer] less than 3 seconds noted to all digits - Neurological Exam Neurological Exam: Awake - Psychiatric Exam Psychiatric exam: Normal Affect, Normal Mood Assessment and Plan - Assessment and Plan (Free Text) Assessment: 87 yo male patient presenting with infected ulcerations to anterior aspect of bilateral legs Right worse than Left ; 2days s/p right leg wound debridement Plan: Patient was seen with Dr. Cummings, evaluated and treated with all questions and concerns addressed labs and vitals reviewed Bilateral legs dressed with Bactroban, Telfa, DSD Continue IV Abx per ID Podiatry will continue to follow in-house <Noam Cummings - Last Filed: 06/23/17 08:04> Objective - Vital Signs/Intake and Output Vital Signs (last 24 hours): Temp Pulse Resp BP Pulse Ox 97.6 F 62 18 127/62 93 L 06/23/17 00:00 06/23/17 00:00 06/23/17 00:00 06/23/17 00:00 06/23/17 00:00 Intake and Output: 06/23/17 06/23/17 06:59 18:59 Intake Total 960 Output Total 520 Balance 440 - Medications Medications: Current Medications Acetaminophen (Tylenol 325mg Tab) 650 mg PO Q6H PRN PRN Reason: Pain, moderate (4-7) Last Admin: 06/20/17 21:09 Dose: 650 mg Albuterol/Ipratropium (Duoneb 3 Mg/0.5 Mg (3 Ml) Ud) 3 ml IH [id number] [facility] Last Admin: 06/23/17 07:06 Dose: 3 ml Albuterol/Ipratropium (Duoneb 3 Mg/0.5 Mg (3 Ml) Ud) 3 ml IH Q2H PRN PRN Reason: Shortness of Breath Last Admin: 06/20/17 23:36 Dose: 3 ml Amlodipine Besylate (Norvasc) 5 mg PO DAILY [facility] Aspirin (Ecotrin) 81 mg PO DAILY [facility] Last Admin: 06/22/17 11:31 Dose: 81 mg Atorvastatin Calcium (Lipitor) 10 mg PO DAILY [facility] Last Admin: 06/22/17 11:31 Dose: 10 mg Clonidine HCl (Catapres) 0.1 mg PO Q8H PRN PRN Reason: Systolic Blood Pressure Ergocalciferol (Drisdol 50,000 Intl Units Cap) 1 cap PO Q7D [facility] Stop: 08/10/17 12:46 Last Admin: 06/22/17 12:54 Dose: 1 cap Heparin Sodium (Porcine) (Heparin) 5,000 units SC Q12 [facility] PRN Reason: Protocol Last Admin: 06/22/17 22:05 Dose: 5,000 units Ciprofloxacin (Cipro 200mg/100ml D5w) 100 mls @ 67 mls/hr IVPB Q12 [facility] PRN Reason: Protocol Stop: 08/02/17 22:01 Last Admin: 06/22/17 22:04 Dose: 67 mls/hr Isosorbide Mononitrate (Imdur) 60 mg PO DAILY [facility] Last Admin: 06/22/17 11:31 Dose: 60 mg Metoprolol Tartrate (Lopressor) 50 mg PO BID [facility] Last Admin: 06/22/17 18:48 Dose: 50 mg Mupirocin (Bactroban Ointment) 0 gm TOP BID [facility] Last Admin: 06/22/17 18:08 Dose: Not Given Pantoprazole Sodium (Protonix Ec Tab) 40 mg PO 0600 [facility] Last Admin: 06/23/17 06:20 Dose: 40 mg Prednisone (Prednisone Tab) 30 mg PO DAILY [facility] Last Admin: 06/22/17 11:32 Dose: 30 mg Senna/Docusate Sodium (Senokot S 50 Mg-8.6 Mg) 1 tab PO BID [facility] Tamsulosin HCl (Flomax) 0.4 mg PO DAILY [facility] Last Admin: 06/22/17 11:31 Dose: 0.4 mg - Labs Labs: 06/22/17 06:00 06/22/17 06:00 PT 14.7 Seconds (9.9-11.8) H 06/13/17 17:33 INR 1.36 (0.93-1.08) H 06/13/17 17:33 APTT 26.6 Seconds (23.7-30.8) 06/19/17 05:10 Attending/Attestation - Attestation I have personally seen and examined this patient.: Yes I have fully participated in the care of the patient.: Yes I have reviewed all pertinent clinical information, including history, physical exam and plan: Yes
[2017-06-22] MEDS: Ciprofloxacin 200mg/100ml D5W 100 ML IVPB SCH ×2 (11:28→22:04)
--- NOTE | 2017-06-22 12:41 | CP.PCM.PN ---
Subjective - Date & Time of Evaluation Date of Evaluation: 06/22/17 Time of Evaluation: 12:38 - Subjective Subjective: Follow up Nephrology Consultation: Assessment: Stable Acute Hypercapnic respi failure s/p mechanical intubation, post-hypercapnic metabolic alkalosis Acute Kidney Injury (N17.9) likely due to dehydration as evident by Hypernatremia. Hyperkalemia: improved Hypertensive Chronic Kidney Disease (I12.9) Chronic Kidney Disease (N18.9) Stage 3 with 600 mg proteinuria (R80.9) possibly due to HTN/vasc disease HTN (I12.9), pulmonary fibrosis, chronic systolic CHF, bladder tumor, b/l kidney cysts Altered mental status NSTEMI Vit D def with secondary hyperparathyoridism Plan No acute need for renal replacement therapy at this time. Hypertension control with meds as ordered. Patient not on ACEI/ARB due to JASWINDER. Monitor Input/Output, daily weights and renal function with basic metabolic panel while in hospital hold lasix due to rise in cr, Na and K. started D5w @ 75 ml/hr will also start ergocalciferol 50,000 units weekly x 8 doses. GN serology with complement and ANCA neg. kidney biopsy not indicated. Dose meds/antibiotics for reduced GFR. Avoid fleets enema/magnesium based laxatives. Avoid nephrotoxins/NSAIDs/ iodinated contrast (unless needed emergently) Glycemic control Further work up/management as per primary team Thanks for allowing me to participate in care of your patient. Please call if any Qs. d/w team. pt planned for d/c to rehab soon. stable from renal perspective. encourage oral intake. f/up in office 1-2 weeks post d/c Dr Edvin Nj Office: [phone] Chief Complaint; none today HPI: Pt is a 87 y/o M with hx of CHF (EF 30-35%), COPD with pulmonary fibrosis, CKD stage 3 (baseline cr 1.1-1.4 mg/dL), HTN, bladder tumor came to ER with altered mental status and shortness of breath and intubated for hypercapnic respi failure, transferred to ICU, renal consult requested for hypernatremia and JASWINDER. got extubated 06/15/17. ROS: Pt offers no new complaints. denies CP/SOB/nausea/vomiting Physical Examination: General Appearance: Comfortable, in no acute respiratory distress. Vitals reviewed and noted as below Head; Atraumatic, normocephalic Neck; supple no lymphadenopathy, no thyromegaly or bruit Lungs: Normal respiratory rate/effort. Breath sounds bilateral with basal crackles Heart: Normal rate. s1s2 normal. No rub or gallop. SM at left sternal border Extremities: no edema. No varicose veins. has chronic venous stasis changes. both legs dressed, known to have chronic leg wounds Neurological: Patient is awake alert Skin: Warm and dry. Normal turgor. No rash. Palpitation: Normal elasticity for age. has upper extremity echymoses/swelling + Abdomen: Abdomen is soft. Bowel sounds +. There is no abdominal tenderness, no guarding/rigidity no organomegaly MSK: no joint tenderness or swelling. Digits and nails normal, no deformity : kidney or bladder not palpable. has catheter Labs/imaging/EKG reviewed. Past medical history, past surgical history, family history, social history, allergy reviewed and noted as below Family hx: Unable to obtain Work up UA done by me showed 30+ protein large blood and LE ++ SG 1.025. microscopy showed very few granular casts, numerous WBCs and also monomorphic RBCs renal sono 2016: b/l renal cysts Objective - Vital Signs/Intake and Output Vital Signs (last 24 hours): Temp Pulse Resp BP Pulse Ox 98.6 F 64 20 163/82 H 98 06/22/17 07:44 06/22/17 11:31 06/22/17 07:44 06/22/17 11:31 06/22/17 07:44 Intake and Output: 06/22/17 06/22/17 06:59 18:59 Intake Total 540 Output Total 175 Balance 365 - Medications Medications: Current Medications Acetaminophen (Tylenol 325mg Tab) 650 mg PO Q6H PRN PRN Reason: Pain, moderate (4-7) Last Admin: 06/20/17 21:09 Dose: 650 mg Albuterol/Ipratropium (Duoneb 3 Mg/0.5 Mg (3 Ml) Ud) 3 ml IH [id number] [facility] Last Admin: 06/22/17 07:28 Dose: 3 ml Albuterol/Ipratropium (Duoneb 3 Mg/0.5 Mg (3 Ml) Ud) 3 ml IH Q2H PRN PRN Reason: Shortness of Breath Last Admin: 06/20/17 23:36 Dose: 3 ml Aspirin (Ecotrin) 81 mg PO DAILY [facility] Last Admin: 06/22/17 11:31 Dose: 81 mg Atorvastatin Calcium (Lipitor) 10 mg PO DAILY [facility] Last Admin: 06/22/17 11:31 Dose: 10 mg Ergocalciferol (Drisdol 50,000 Intl Units Cap) 1 cap PO Q7D [facility] Stop: 08/10/17 12:46 Heparin Sodium (Porcine) (Heparin) 5,000 units SC Q12 [facility] PRN Reason: Protocol Last Admin: 06/22/17 11:29 Dose: 5,000 units Hydralazine HCl (Apresoline) 10 mg IVP Q6 PRN PRN Reason: high blood pressure Ciprofloxacin (Cipro 200mg/100ml D5w) 100 mls @ 67 mls/hr IVPB Q12 [facility] PRN Reason: Protocol Stop: 08/02/17 22:01 Last Admin: 06/22/17 11:28 Dose: 67 mls/hr Isosorbide Mononitrate (Imdur) 60 mg PO DAILY [facility] Last Admin: 06/22/17 11:31 Dose: 60 mg Losartan Potassium (Cozaar) 25 mg PO DAILY [facility] Last Admin: 06/22/17 11:31 Dose: 25 mg Metoprolol Tartrate (Lopressor) 50 mg PO BID [facility] Last Admin: 06/22/17 11:31 Dose: 50 mg Mupirocin (Bactroban Ointment) 0 gm TOP BID [facility] Last Admin: 06/22/17 10:52 Dose: Not Given Pantoprazole Sodium (Protonix Ec Tab) 40 mg PO 0600 [facility] Last Admin: 06/22/17 06:57 Dose: 40 mg Prednisone (Prednisone Tab) 30 mg PO DAILY [facility] Last Admin: 06/22/17 11:32 Dose: 30 mg Tamsulosin HCl (Flomax) 0.4 mg PO DAILY [facility] Last Admin: 06/22/17 11:31 Dose: 0.4 mg - Labs Labs: 06/22/17 06:00 06/22/17 06:00 PT 14.7 Seconds (9.9-11.8) H 06/13/17 17:33 INR 1.36 (0.93-1.08) H 06/13/17 17:33 APTT 26.6 Seconds (23.7-30.8) 06/19/17 05:10
[2017-06-22] MEDS ORDERED: Ergocalciferol 50,000 Intl Units Cap PO SCH (12:45)
--- NOTE | 2017-06-22 14:56 | IP.NPCORE ---
Heart Failure Core Measure - Heart Failure Ejection Fraction: Less Than 40 % Left Ventricular Function to be assessed after discharge: Yes RED Inhibitor Prescribed: No Contraindication/Reason for not providing: renal insuuficent Beta-Surendra Prescribed: Metoprolol Succinate Angiotensin II Receptor Surendra Prescribed: No Contraindication/Reason for not providing: renal insuff AnticoagulationTherapy for Atrial Fibrillation/Atrialflutter: No Contraindication/Reason for not providing: n/a Aldosterone Antagonist Prescribed: Yes Hydralazine Nitrate Prescribed: Yes Implantable Cardioverter Defibrillator Therapy: No Contraindication/Reason for not providing: n/a Cardiac Resynchronization Therapy Prescribed: Yes - Follow up Will be discharged to: [facility] Follow Up Date (must be within 7 days from discharge): 06/29/17 Follow Up Time: 09:00
--- NOTE | 2017-06-22 16:12 | CP.PCM.PN ---
<Adrianna Woodward - Last Filed: 06/22/17 16:08> Subjective - Date & Time of Evaluation Date of Evaluation: 06/22/17 Time of Evaluation: 16:09 - Subjective Subjective: PGY-[address] Cannon Pt SOB has improved. Complaint of nausea and constipation Objective - Vital Signs/Intake and Output Vital Signs (last 24 hours): Temp Pulse Resp BP Pulse Ox 98.6 F 64 20 163/82 H 98 06/22/17 07:44 06/22/17 11:31 06/22/17 07:44 06/22/17 11:31 06/22/17 07:44 Intake and Output: 06/22/17 06/22/17 06:59 18:59 Intake Total 540 Output Total 175 Balance 365 - Medications Medications: Current Medications Acetaminophen (Tylenol 325mg Tab) 650 mg PO Q6H PRN PRN Reason: Pain, moderate (4-7) Last Admin: 06/20/17 21:09 Dose: 650 mg Albuterol/Ipratropium (Duoneb 3 Mg/0.5 Mg (3 Ml) Ud) 3 ml IH [id number] [facility] Last Admin: 06/22/17 13:06 Dose: 3 ml Albuterol/Ipratropium (Duoneb 3 Mg/0.5 Mg (3 Ml) Ud) 3 ml IH Q2H PRN PRN Reason: Shortness of Breath Last Admin: 06/20/17 23:36 Dose: 3 ml Amlodipine Besylate (Norvasc) 5 mg PO DAILY [facility] Aspirin (Ecotrin) 81 mg PO DAILY [facility] Last Admin: 06/22/17 11:31 Dose: 81 mg Atorvastatin Calcium (Lipitor) 10 mg PO DAILY [facility] Last Admin: 06/22/17 11:31 Dose: 10 mg Ergocalciferol (Drisdol 50,000 Intl Units Cap) 1 cap PO Q7D [facility] Stop: 08/10/17 12:46 Last Admin: 06/22/17 12:54 Dose: 1 cap Heparin Sodium (Porcine) (Heparin) 5,000 units SC Q12 [facility] PRN Reason: Protocol Last Admin: 06/22/17 11:29 Dose: 5,000 units Hydralazine HCl (Apresoline) 10 mg IVP Q6 PRN PRN Reason: high blood pressure Ciprofloxacin (Cipro 200mg/100ml D5w) 100 mls @ 67 mls/hr IVPB Q12 [facility] PRN Reason: Protocol Stop: 08/02/17 22:01 Last Admin: 06/22/17 11:28 Dose: 67 mls/hr Isosorbide Mononitrate (Imdur) 60 mg PO DAILY [facility] Last Admin: 06/22/17 11:31 Dose: 60 mg Metoprolol Tartrate (Lopressor) 50 mg PO BID [facility] Last Admin: 06/22/17 11:31 Dose: 50 mg Mupirocin (Bactroban Ointment) 0 gm TOP BID [facility] Last Admin: 06/22/17 10:52 Dose: Not Given Pantoprazole Sodium (Protonix Ec Tab) 40 mg PO 0600 [facility] Last Admin: 06/22/17 06:57 Dose: 40 mg Prednisone (Prednisone Tab) 30 mg PO DAILY [facility] Last Admin: 06/22/17 11:32 Dose: 30 mg Tamsulosin HCl (Flomax) 0.4 mg PO DAILY [facility] Last Admin: 06/22/17 11:31 Dose: 0.4 mg - Labs Labs: 06/22/17 06:00 06/22/17 06:00 PT 14.7 Seconds (9.9-11.8) H 06/13/17 17:33 INR 1.36 (0.93-1.08) H 06/13/17 17:33 APTT 26.6 Seconds (23.7-30.8) 06/19/17 05:10 - Constitutional Appears: No Acute Distress - Head Exam Head Exam: ATRAUMATIC, NORMAL INSPECTION, NORMOCEPHALIC - Eye Exam Eye Exam: EOMI, Normal appearance, PERRL Pupil Exam: NORMAL ACCOMODATION, PERRL - ENT Exam ENT Exam: Mucous Membranes Moist - Neck Exam Additional comments: no jvd distention - Respiratory Exam Respiratory Exam: Decreased Breath Sounds (b/l basilar), Rhonchi, Wheezes, NORMAL BREATHING PATTERN. absent: Rales - Cardiovascular Exam Cardiovascular Exam: REGULAR RHYTHM, +S1, +S2 - GI/Abdominal Exam GI & Abdominal Exam: Distended, Soft, Normal Bowel Sounds. absent: Firm, Guarding, Rigid - Extremities Exam Extremities Exam: Pedal Edema (slight b.l). absent: Calf Tenderness - Back Exam Back Exam: absent: CVA tenderness (L), CVA tenderness (R) - Neurological Exam Neurological Exam: Alert, Awake, Oriented x3 - Psychiatric Exam Psychiatric exam: Normal Affect, Normal Mood - Skin Skin Exam: Dry, Warm Assessment and Plan - Assessment and Plan (Free Text) Plan: 87 yo M with PMH of COPD, CHF with LVEF 17%, Paget's disease, and HTN who initially presented with AMS and hypercapnic respiratory failure requiring intubation/mechanical ventilation. Pt is 8 days s/p extubation. Mentation improves. Remains on AvyCaz for b/l LE MRSA cellulitis. Plan: Acute Hypercapnic Respiratory Failure: Resolved -2/2 CHF exacerbation in setting of NSTEMI/demand ischemia - 2/2 severe COPD, now s/p extubation a week ago -continue Solumedrol 20mg IV Q12H - tapering down slowly - Nebs Q6H tomer/Q2 prn, as per Pulm -Satting well on O2 NC, maintain SaO2 88-95%, avoid persistently elevated SaO2 to prevent suppression of respiratory drive in COPD pt -Heparin drip d/c'd >48hrs post ME, will continue with conservative management at this time, no new stress test. -Cardio (Santa), Neuro (Cindi Castro), and Pulm (Jayy) consulted, appreciate all recs Altered Mental Status: Resolved -2/2 Hypercapnic resp failure vs Sepsis from LE cellulitis vs ACS -Head CT: small hypodense lacunar infarct within the left cerebellar lobe, considered to be subacute -UDS (+) benzos, no benzos listed in home medication charting -MRI showing chronic microvascular changes, MRA unremarkable -EEG completed, significant for diffuse slowing "drowsy". Was done when sedated. -Blood cx showing no growth x 5 days, urine cx no growth MRSA cellulitis, b/l leg -Wound cxs: +MRSA, Right leg WCX: E.Coli, Staph. Aureus (Resistant to PCN but Oxa sensitive); Left leg WCX: Klebsella Oxytosa, Staph Aureus -Continue Vancomycin and Rocephin per ID -ID (Go) and Podiatry (Iftikhar) consulted, appreciate all recs -Off rocephin and vanc per ID, as C&S shows sensitivity to cipro. Switched to IV cipro for 10d course -Patient had surgery yesterday for debridement of RLE wound nonviable tissue with podiatry NSTEMI -Troponins peaked at 1.16, plateued and then trended down -Continue conservative management, no stress test at this time per cardio. Previously on heparin drip, discontinued after 48hrs -Off heparin, platelet count trending back up again -Continue Metoprolol, Imdur, Statin, ASA, Plavix, lipitor -JASWINDER resolved, will restart Cozaar Chronic venous stasis ulceration -B/L lower extremity wounds currently being managed by podiatry -Daily dressing changes and topical antibiotic application Congestive Heart Failure (Systolic) -Last echo shows LVEF 17% -Holding lasix per nephro for free water deficit while hydrating with D5W@75cc/ hr. Will restart lasix tomorrow. -Strict I&O's -Daily weights -Cardio consulted, appreciate all recs Acute Kidney Injury: stable -Discontinued lasix 2 days ago after acute elevation in creatinine level, now improved. Will continue holding lasix per nephro, for free water deficit. -monitor I&Os -Nephro (Ondina) consulted, appreciate all recs Hypertension -continue Lopressor 50mg PO BID, Hydralazine 10mg Q6H PRN, Imdur 60mg PO QD -Pt hypertensive today, will restart home Cozaar 25 mg PO QD H/o BPH -Restart home Flomax Ppx: Heparin SQ for DVT, Protonix for GI Disposition: Pending TCU transfer once bed available S/r/d/w Dr. Cannon <Roxana Cannon - Last Filed: 06/22/17 17:02> Objective - Vital Signs/Intake and Output Vital Signs (last 24 hours): Temp Pulse Resp BP Pulse Ox 98.0 F 70 20 148/69 93 L 06/22/17 16:00 06/22/17 16:00 06/22/17 16:00 06/22/17 16:00 06/22/17 16:00 Intake and Output: 06/22/17 06/22/17 06:59 18:59 Intake Total 540 Output Total 175 Balance 365 - Medications Medications: Current Medications Acetaminophen (Tylenol 325mg Tab) 650 mg PO Q6H PRN PRN Reason: Pain, moderate (4-7) Last Admin: 06/20/17 21:09 Dose: 650 mg Albuterol/Ipratropium (Duoneb 3 Mg/0.5 Mg (3 Ml) Ud) 3 ml IH [id number] [facility] Last Admin: 06/22/17 13:06 Dose: 3 ml Albuterol/Ipratropium (Duoneb 3 Mg/0.5 Mg (3 Ml) Ud) 3 ml IH Q2H PRN PRN Reason: Shortness of Breath Last Admin: 06/20/17 23:36 Dose: 3 ml Amlodipine Besylate (Norvasc) 5 mg PO DAILY [facility] Aspirin (Ecotrin) 81 mg PO DAILY [facility] Last Admin: 06/22/17 11:31 Dose: 81 mg Atorvastatin Calcium (Lipitor) 10 mg PO DAILY [facility] Last Admin: 06/22/17 11:31 Dose: 10 mg Clonidine HCl (Catapres) 0.1 mg PO Q8H PRN PRN Reason: Systolic Blood Pressure Ergocalciferol (Drisdol 50,000 Intl Units Cap) 1 cap PO Q7D [facility] Stop: 08/10/17 12:46 Last Admin: 06/22/17 12:54 Dose: 1 cap Heparin Sodium (Porcine) (Heparin) 5,000 units SC Q12 [facility] PRN Reason: Protocol Last Admin: 06/22/17 11:29 Dose: 5,000 units Ciprofloxacin (Cipro 200mg/100ml D5w) 100 mls @ 67 mls/hr IVPB Q12 [facility] PRN Reason: Protocol Stop: 08/02/17 22:01 Last Admin: 06/22/17 11:28 Dose: 67 mls/hr Isosorbide Mononitrate (Imdur) 60 mg PO DAILY [facility] Last Admin: 06/22/17 11:31 Dose: 60 mg Metoprolol Tartrate (Lopressor) 50 mg PO BID [facility] Last Admin: 06/22/17 11:31 Dose: 50 mg Mupirocin (Bactroban Ointment) 0 gm TOP BID [facility] Last Admin: 06/22/17 10:52 Dose: Not Given Pantoprazole Sodium (Protonix Ec Tab) 40 mg PO 0600 [facility] Last Admin: 06/22/17 06:57 Dose: 40 mg Prednisone (Prednisone Tab) 30 mg PO DAILY [facility] Last Admin: 06/22/17 11:32 Dose: 30 mg Tamsulosin HCl (Flomax) 0.4 mg PO DAILY [facility] Last Admin: 06/22/17 11:31 Dose: 0.4 mg - Labs Labs: 06/22/17 06:00 06/22/17 06:00 PT 14.7 Seconds (9.9-11.8) H 06/13/17 17:33 INR 1.36 (0.93-1.08) H 06/13/17 17:33 APTT 26.6 Seconds (23.7-30.8) 06/19/17 05:10 Attending/Attestation - Attestation I have personally seen and examined this patient.: Yes I have fully participated in the care of the patient.: Yes I have reviewed all pertinent clinical information, including history, physical exam and plan: Yes Notes (Text): 06/22/17 17:00 patient seen and examined at bedside. vitals, labs and notes reviewed. He feels better overall and reports improvement in his symptoms, denies any new complaints. Discussed with Pulmonary service and renal note reviewed. continue IV fluids a,d continue holding lasix at this time. Renal function stabilized. Agree with the plan as outlined by the resident
--- NOTE | 2017-06-22 18:04 | CP.PCM.PN ---
Subjective - Date & Time of Evaluation Date of Evaluation: 06/22/17 Time of Evaluation: 17:30 - Subjective Subjective: Infectious Disease Follow Up: June 22, 2017 87 yo male brought in for lethargy and AMS. The patient has an extensive medical history that includes COPD, CHF last known EF of 30-35% in 08/2016, HTN , Paget's disease and PAD. The patient required intubation and ventilation once arriving in [facility]. He has been extubated. Remains extubated and feeling better. He is much more awake and alert today. No major complaints. He does complain of bilateral lower extremity pain. Went to OR for debridement of bilateral stage III ulcers of the lower extremities. Currently on the med-surg floor. He is growing Klebsiella and Staph Aureus sensitive to Cipro. Objective - Vital Signs/Intake and Output Vital Signs (last 24 hours): Temp Pulse Resp BP Pulse Ox 98.0 F 70 20 148/69 93 L 06/22/17 16:00 06/22/17 16:00 06/22/17 16:00 06/22/17 16:00 06/22/17 16:00 Intake and Output: 06/22/17 06/22/17 06:59 18:59 Intake Total 540 Output Total 175 Balance 365 - Medications Medications: Current Medications Acetaminophen (Tylenol 325mg Tab) 650 mg PO Q6H PRN PRN Reason: Pain, moderate (4-7) Last Admin: 06/20/17 21:09 Dose: 650 mg Albuterol/Ipratropium (Duoneb 3 Mg/0.5 Mg (3 Ml) Ud) [id number] [facility] Last Admin: 06/22/17 13:06 Dose: 3 ml Albuterol/Ipratropium (Duoneb 3 Mg/0.5 Mg (3 Ml) Ud) 3 ml IH Q2H PRN PRN Reason: Shortness of Breath Last Admin: 06/20/17 23:36 Dose: 3 ml Amlodipine Besylate (Norvasc) [address] [facility] Aspirin (Ecotrin) [address] [facility] Last Admin: 06/22/17 11:31 Dose: 81 mg Atorvastatin Calcium (Lipitor) [address] [facility] Last Admin: 06/22/17 11:31 Dose: 10 mg Clonidine HCl (Catapres) 0.1 mg PO Q8H PRN PRN Reason: Systolic Blood Pressure Ergocalciferol (Drisdol 50,000 Intl Units Cap) [address] [facility] Stop: 08/10/17 12:46 Last Admin: 06/22/17 12:54 Dose: 1 cap Heparin Sodium (Porcine) (Heparin) 5,000 units SC Q12 [facility] PRN Reason: Protocol Last Admin: 06/22/17 11:29 Dose: 5,000 units Ciprofloxacin (Cipro 200mg/100ml D5w) 100 mls @ 67 mls/hr IVPB Q12 [facility] PRN Reason: Protocol Stop: 08/02/17 22:01 Last Admin: 06/22/17 11:28 Dose: 67 mls/hr Isosorbide Mononitrate (Imdur) [address] [facility] Last Admin: 06/22/17 11:31 Dose: 60 mg Metoprolol Tartrate (Lopressor) [address] [facility] Last Admin: 06/22/17 11:31 Dose: 50 mg Mupirocin (Bactroban Ointment) [address] [facility] Last Admin: 06/22/17 10:52 Dose: Not Given Pantoprazole Sodium (Protonix Ec Tab) [address] [facility] Last Admin: 06/22/17 06:57 Dose: 40 mg Prednisone (Prednisone Tab) [address] [facility] Last Admin: 06/22/17 11:32 Dose: 30 mg Tamsulosin HCl (Flomax) 0.[address] [facility] Last Admin: 06/22/17 11:31 Dose: 0.4 mg - Labs Labs: 06/22/17 06:00 06/22/17 06:00 PT 14.7 Seconds (9.9-11.8) H 06/13/17 17:33 INR 1.36 (0.93-1.08) H 06/13/17 17:33 APTT 26.6 Seconds (23.7-30.8) 06/19/17 05:10 - Constitutional Appears: Non-toxic, No Acute Distress, Chronically Ill - Head Exam Head Exam: ATRAUMATIC, NORMOCEPHALIC - Eye Exam Eye Exam: EOMI, PERRL Pupil Exam: NORMAL ACCOMODATION, PERRL - ENT Exam ENT Exam: Mucous Membranes Moist, Normal External Ear Exam, TM's Normal Bilaterally - Neck Exam Neck Exam: Full ROM, Normal Inspection - Respiratory Exam Respiratory Exam: Clear to Ausculation Bilateral, NORMAL BREATHING PATTERN. absent: Rales, Rhonchi, Wheezes - Cardiovascular Exam Cardiovascular Exam: REGULAR RHYTHM, RRR, +S1, +S2 - GI/Abdominal Exam GI & Abdominal Exam: Soft, Normal Bowel Sounds. absent: Distended, Tenderness - Extremities Exam Additional comments: +Heel protectors +Venous stasis skin changes B/L LE wrapped with curlex mild cellulitis of the bilateral lower extremities and chronic venous stasis. open ulcerations on the bilateral legs anteriorly. wounds are malodorous. now s/p debridement of the ulcerations. - Neurological Exam Neurological Exam: Alert, Awake, CN II-XII Intact, Oriented x3 - Psychiatric Exam Psychiatric exam: Normal Affect, Normal Mood - Skin Additional comments: As above Assessment and Plan - Assessment and Plan (Free Text) Assessment: 87 yo male with AMS and lethargy. Etiology unclear. Broad spectrum coverage for now with Rocephin and Vancomycin treatment. Ignacio cultures. Imaging studies. Patient was intubated and ventilated but was extubated recently. Remains in ICU currently. He is more awake and alert now. Overall improving. Supportive care. Obtain procalcitonin... which was 0.48 which is normal. Follow up WBC and fever trend. Urine drug screen positive for Benzodiazepine. Respiratory failure. Renal insufficiency (acute or chronic?). Patient has a history of hypertension and systolic congestive heart failure. Patient improving and is mentally back to his normal state at this time. His only complaint is of bilateral lower leg pains. Went to OR Sunday morning for debridement of unhealthy tissue of the legs. No additional issues. Cultures showing Staph Aureus and Klebsiella. The patient started on Cipro IV today. He will need 10 days of treatment although it does not have to be all by IV and can be finished with PO Cipro. Thank you for allowing me to participate in the care of the patient, we will follow with you.
[2017-06-23 00:47] VITALS: RESP 18; TEMP 97.6
[2017-06-23] MEDS: Albuterol-Ipratrop 3 mg / 0.5 (3 ml) UD IH SCH ×3 (04:49→13:10)
[2017-06-23] MEDS: Pantoprazole 40 mg EC Tab PO SCH (06:20)
--- NOTE | 2017-06-23 09:17 | CP.PCM.PN ---
<JaleelRadha - Last Filed: 06/23/17 09:23> Subjective - Date & Time of Evaluation Date of Evaluation: 06/23/17 Time of Evaluation: 09:23 - Subjective Subjective: 87 year old male patient seen 3 days s/p right leg wound debridement at bedside this morning. Patient is seen resting comfortably, slightly confused but in NAD. Patient reports having continued pain to bilateral lower extremities. Patient denies N/V/F/D/C/SOB/calf pain. No other pedal complaints at this time. Objective - Vital Signs/Intake and Output Vital Signs (last 24 hours): Temp Pulse Resp BP Pulse Ox 97.6 F 62 18 127/62 93 L 06/23/17 00:00 06/23/17 00:00 06/23/17 00:00 06/23/17 00:00 06/23/17 00:00 Intake and Output: 06/23/17 06/23/17 06:59 18:59 Intake Total 960 Output Total 520 Balance 440 - Medications Medications: Current Medications Acetaminophen (Tylenol 325mg Tab) 650 mg PO Q6H PRN PRN Reason: Pain, moderate (4-7) Last Admin: 06/20/17 21:09 Dose: 650 mg Albuterol/Ipratropium (Duoneb 3 Mg/0.5 Mg (3 Ml) Ud) 3 ml IH [id number] [facility] Last Admin: 06/23/17 07:06 Dose: 3 ml Albuterol/Ipratropium (Duoneb 3 Mg/0.5 Mg (3 Ml) Ud) 3 ml IH Q2H PRN PRN Reason: Shortness of Breath Last Admin: 06/20/17 23:36 Dose: 3 ml Amlodipine Besylate (Norvasc) 5 mg PO DAILY [facility] Aspirin (Ecotrin) 81 mg PO DAILY [facility] Last Admin: 06/22/17 11:31 Dose: 81 mg Atorvastatin Calcium (Lipitor) 10 mg PO DAILY [facility] Last Admin: 06/22/17 11:31 Dose: 10 mg Clonidine HCl (Catapres) 0.1 mg PO Q8H PRN PRN Reason: Systolic Blood Pressure Ergocalciferol (Drisdol 50,000 Intl Units Cap) 1 cap PO Q7D [facility] Stop: 08/10/17 12:46 Last Admin: 06/22/17 12:54 Dose: 1 cap Heparin Sodium (Porcine) (Heparin) 5,000 units SC Q12 [facility] PRN Reason: Protocol Last Admin: 06/22/17 22:05 Dose: 5,000 units Ciprofloxacin (Cipro 200mg/100ml D5w) 100 mls @ 67 mls/hr IVPB Q12 [facility] PRN Reason: Protocol Stop: 08/02/17 22:01 Last Admin: 06/22/17 22:04 Dose: 67 mls/hr Isosorbide Mononitrate (Imdur) 60 mg PO DAILY [facility] Last Admin: 06/22/17 11:31 Dose: 60 mg Metoprolol Tartrate (Lopressor) 50 mg PO BID [facility] Last Admin: 06/22/17 18:48 Dose: 50 mg Mupirocin (Bactroban Ointment) 0 gm TOP BID [facility] Last Admin: 06/22/17 18:08 Dose: Not Given Pantoprazole Sodium (Protonix Ec Tab) 40 mg PO 0600 [facility] Last Admin: 06/23/17 06:20 Dose: 40 mg Prednisone (Prednisone Tab) 30 mg PO DAILY [facility] Last Admin: 06/22/17 11:32 Dose: 30 mg Senna/Docusate Sodium (Senokot S 50 Mg-8.6 Mg) 1 tab PO BID [facility] Tamsulosin HCl (Flomax) 0.4 mg PO DAILY [facility] Last Admin: 06/22/17 11:31 Dose: 0.4 mg - Labs Labs: 06/22/17 06:00 06/22/17 06:00 PT 14.7 Seconds (9.9-11.8) H 06/13/17 17:33 INR 1.36 (0.93-1.08) H 06/13/17 17:33 APTT 26.6 Seconds (23.7-30.8) 06/19/17 05:10 - Constitutional Appears: Well, Non-toxic, No Acute Distress - Extremities Exam Additional comments: Bilateral lower extremity exam VASC: Palpable DP and PT pulses are noted 1/4 bilaterally. CFT < 3 seconds noted to all digits DERM: Right: Open ulcerations to anterior and lateral aspect of leg measuring 15cm x 5cm x 0.2cm with granular base. Mild to moderate serosanguinous drainage is noted. No malodor is noted. No purulent drainage expressed from the ulcerations. Erythema to leg continuing to decrease following surgical debridement of wound. Left: Open ulcerations to anterior aspect of leg measuring 11cm x 5cm x 0.2cm with a mixed fibrogranular base. Moderate serosanguinous drainage is noted. No malodor is present. No purulent discharge noted. Mild to moderate eythema noted to wound periphery. - Neurological Exam Neurological Exam: Alert, Awake, Oriented x3 - Psychiatric Exam Psychiatric exam: Normal Affect, Normal Mood Assessment and Plan - Assessment and Plan (Free Text) Assessment: 87 yo male patient presenting with infected ulcerations to anterior aspect of bilateral legs (R>L) who is 3 days s/p right leg wound debridement Plan: Patient was seen and evaluated at bedside with Dr. Cummings labs and vitals reviewed - afebrile, WBC 11.0 Bilateral legs dressed with Bactroban, Adaptic, ABD and DSD Continue IV Cipro as per ID as patient is growing S. aureus and Klebsiella Podiatry will continue to follow in-house <Noam Cummings - Last Filed: 06/23/17 09:55> Objective - Vital Signs/Intake and Output Vital Signs (last 24 hours): Temp Pulse Resp BP Pulse Ox 97.6 F 69 18 180/78 H 94 L 06/23/17 07:30 06/23/17 07:30 06/23/17 07:30 06/23/17 07:30 06/23/17 07:30 Intake and Output: 06/23/17 06/23/17 06:59 18:59 Intake Total 960 Output Total 520 Balance 440 - Medications Medications: Current Medications Acetaminophen (Tylenol 325mg Tab) 650 mg PO Q6H PRN PRN Reason: Pain, moderate (4-7) Last Admin: 06/20/17 21:09 Dose: 650 mg Albuterol/Ipratropium (Duoneb 3 Mg/0.5 Mg (3 Ml) Ud) 3 ml IH [id number] Last Admin: 06/23/17 07:06 Dose: 3 ml Albuterol/Ipratropium (Duoneb 3 Mg/0.5 Mg (3 Ml) Ud) 3 ml IH Q2H PRN PRN Reason: Shortness of Breath Last Admin: 06/20/17 23:36 Dose: 3 ml Amlodipine Besylate (Norvasc) 5 mg PO DAILY [facility] Aspirin (Ecotrin) 81 mg PO DAILY [facility] Last Admin: 06/22/17 11:31 Dose: 81 mg Atorvastatin Calcium (Lipitor) 10 mg PO DAILY [facility] Last Admin: 06/22/17 11:31 Dose: 10 mg Clonidine HCl (Catapres) 0.1 mg PO Q8H PRN PRN Reason: Systolic Blood Pressure Ergocalciferol (Drisdol 50,000 Intl Units Cap) 1 cap PO Q7D [facility] Stop: 08/10/17 12:46 Last Admin: 06/22/17 12:54 Dose: 1 cap Heparin Sodium (Porcine) (Heparin) 5,000 units SC Q12 [facility] PRN Reason: Protocol Last Admin: 06/22/17 22:05 Dose: 5,000 units Ciprofloxacin (Cipro 200mg/100ml D5w) 100 mls @ 67 mls/hr IVPB Q12 [facility] PRN Reason: Protocol Stop: 08/02/17 22:01 Last Admin: 06/22/17 22:04 Dose: 67 mls/hr Isosorbide Mononitrate (Imdur) 60 mg PO DAILY [facility] Last Admin: 06/22/17 11:31 Dose: 60 mg Metoprolol Tartrate (Lopressor) 50 mg PO BID [facility] Last Admin: 06/22/17 18:48 Dose: 50 mg Mupirocin (Bactroban Ointment) 0 gm TOP BID [facility] Last Admin: 06/22/17 18:08 Dose: Not Given Pantoprazole Sodium (Protonix Ec Tab) 40 mg PO 0600 [facility] Last Admin: 06/23/17 06:20 Dose: 40 mg Prednisone (Prednisone Tab) 30 mg PO DAILY [facility] Last Admin: 06/22/17 11:32 Dose: 30 mg Senna/Docusate Sodium (Senokot S 50 Mg-8.6 Mg) 1 tab PO BID [facility] Tamsulosin HCl (Flomax) 0.4 mg PO DAILY [facility] Last Admin: 06/22/17 11:31 Dose: 0.4 mg - Labs Labs: 06/22/17 06:00 06/22/17 06:00 PT 14.7 Seconds (9.9-11.8) H 06/13/17 17:33 INR 1.36 (0.93-1.08) H 06/13/17 17:33 APTT 26.6 Seconds (23.7-30.8) 06/19/17 05:10 Attending/Attestation - Attestation I have personally seen and examined this patient.: Yes I have fully participated in the care of the patient.: Yes I have reviewed all pertinent clinical information, including history, physical exam and plan: Yes
[2017-06-23 09:26] VITALS: BP 180/78; PULSE 69; O2SAT 94
--- NOTE | 2017-06-23 09:43 | CP.PCM.PN ---
Subjective - Date & Time of Evaluation Date of Evaluation: 06/23/17 Time of Evaluation: 09:41 - Subjective Subjective: Follow up Nephrology Consultation: Assessment: Stable Acute Hypercapnic respi failure s/p mechanical intubation, post-hypercapnic metabolic alkalosis: RESOLVED Acute Kidney Injury (N17.9) likely due to dehydration as evident by Hypernatremia. Hyperkalemia: improved Hypertensive Chronic Kidney Disease (I12.9) Chronic Kidney Disease (N18.9) Stage 3 with 600 mg proteinuria (R80.9) possibly due to HTN/vasc disease HTN (I12.9), pulmonary fibrosis, chronic systolic CHF, bladder tumor, b/l kidney cysts Altered mental status NSTEMI Vit D def with secondary hyperparathyoridism Plan No new labs today Hypertension control with meds as ordered. Patient not on ACEI/ARB due to JASWINDER. Monitor Input/Output, daily weights and renal function with basic metabolic panel while in hospital hold lasix due to rise in cr, Na and K. started ergocalciferol 50,000 units weekly x 8 doses. ordered for lactulose. Avoid fleets enema/magnesium based laxatives. GN serology with complement and ANCA neg. kidney biopsy not indicated. Dose meds/antibiotics for reduced GFR. Avoid nephrotoxins/NSAIDs/ iodinated contrast (unless needed emergently) Glycemic control Further work up/management as per primary team Thanks for allowing me to participate in care of your patient. Please call if any Qs. d/w team. pt planned for d/c to rehab soon. stable from renal perspective. encourage oral intake. f/up in office 1-2 weeks post d/c Dr Edvin Nj Office: [phone] Chief Complaint; constipation HPI: Pt is a 87 y/o M with hx of CHF (EF 30-35%), COPD with pulmonary fibrosis, CKD stage 3 (baseline cr 1.1-1.4 mg/dL), HTN, bladder tumor came to ER with altered mental status and shortness of breath and intubated for hypercapnic respi failure, transferred to ICU, renal consult requested for hypernatremia and JASWINDER. got extubated 06/15/17. ROS: Pt offers no new complaints except constipation. denies CP/SOB/nausea/ vomiting Physical Examination: General Appearance: Comfortable, in no acute respiratory distress. Vitals reviewed and noted as below Head; Atraumatic, normocephalic Neck; supple no lymphadenopathy, no thyromegaly or bruit Lungs: Normal respiratory rate/effort. Breath sounds bilateral with basal crackles Heart: Normal rate. s1s2 normal. No rub or gallop. SM at left sternal border Extremities: no edema. No varicose veins. has chronic venous stasis changes. both legs dressed, known to have chronic leg wounds Neurological: Patient is awake alert Skin: Warm and dry. Normal turgor. No rash. Palpitation: Normal elasticity for age. has upper extremity echymoses/swelling + Abdomen: Abdomen is soft but bit distended. Bowel sounds +. There is no abdominal tenderness, no guarding/rigidity no organomegaly MSK: no joint tenderness or swelling. Digits and nails normal, no deformity : kidney or bladder not palpable. Labs/imaging/EKG reviewed. Past medical history, past surgical history, family history, social history, allergy reviewed and noted as below Family hx: Unable to obtain Work up UA done by me showed 30+ protein large blood and LE ++ SG 1.025. microscopy showed very few granular casts, numerous WBCs and also monomorphic RBCs renal sono 2016: b/l renal cysts Objective - Vital Signs/Intake and Output Vital Signs (last 24 hours): Temp Pulse Resp BP Pulse Ox 97.6 F 69 18 180/78 H 94 L 06/23/17 07:30 06/23/17 07:30 06/23/17 07:30 06/23/17 07:30 06/23/17 07:30 Intake and Output: 06/23/17 06/23/17 06:59 18:59 Intake Total 960 Output Total 520 Balance 440 - Medications Medications: Current Medications Acetaminophen (Tylenol 325mg Tab) 650 mg PO Q6H PRN PRN Reason: Pain, moderate (4-7) Last Admin: 06/20/17 21:09 Dose: 650 mg Albuterol/Ipratropium (Duoneb 3 Mg/0.5 Mg (3 Ml) Ud) 3 ml IH [id number] [facility] Last Admin: 06/23/17 07:06 Dose: 3 ml Albuterol/Ipratropium (Duoneb 3 Mg/0.5 Mg (3 Ml) Ud) 3 ml IH Q2H PRN PRN Reason: Shortness of Breath Last Admin: 06/20/17 23:36 Dose: 3 ml Amlodipine Besylate (Norvasc) 5 mg PO DAILY [facility] Aspirin (Ecotrin) 81 mg PO DAILY [facility] Last Admin: 06/22/17 11:31 Dose: 81 mg Atorvastatin Calcium (Lipitor) 10 mg PO DAILY [facility] Last Admin: 06/22/17 11:31 Dose: 10 mg Clonidine HCl (Catapres) 0.1 mg PO Q8H PRN PRN Reason: Systolic Blood Pressure Ergocalciferol (Drisdol 50,000 Intl Units Cap) 1 cap PO Q7D [facility] Stop: 08/10/17 12:46 Last Admin: 06/22/17 12:54 Dose: 1 cap Heparin Sodium (Porcine) (Heparin) 5,000 units SC Q12 [facility] PRN Reason: Protocol Last Admin: 06/22/17 22:05 Dose: 5,000 units Ciprofloxacin (Cipro 200mg/100ml D5w) 100 mls @ 67 mls/hr IVPB Q12 [facility] PRN Reason: Protocol Stop: 08/02/17 22:01 Last Admin: 06/22/17 22:04 Dose: 67 mls/hr Isosorbide Mononitrate (Imdur) 60 mg PO DAILY [facility] Last Admin: 06/22/17 11:31 Dose: 60 mg Metoprolol Tartrate (Lopressor) 50 mg PO BID [facility] Last Admin: 06/22/17 18:48 Dose: 50 mg Mupirocin (Bactroban Ointment) 0 gm TOP BID [facility] Last Admin: 06/22/17 18:08 Dose: Not Given Pantoprazole Sodium (Protonix Ec Tab) 40 mg PO 0600 [facility] Last Admin: 06/23/17 06:20 Dose: 40 mg Prednisone (Prednisone Tab) 30 mg PO DAILY [facility] Last Admin: 06/22/17 11:32 Dose: 30 mg Senna/Docusate Sodium (Senokot S 50 Mg-8.6 Mg) 1 tab PO BID [facility] Tamsulosin HCl (Flomax) 0.4 mg PO DAILY [facility] Last Admin: 06/22/17 11:31 Dose: 0.4 mg - Labs Labs: 06/22/17 06:00 06/22/17 06:00 PT 14.7 Seconds (9.9-11.8) H 06/13/17 17:33 INR 1.36 (0.93-1.08) H 06/13/17 17:33 APTT 26.6 Seconds (23.7-30.8) 06/19/17 05:10
[2017-06-23] MEDS: Ciprofloxacin 200mg/100ml D5W 100 ML IVPB SCH (09:52)
[2017-06-23] MEDS ORDERED: Docusate-Senna 50 mg-8.6 mg Tab PO SCH (10:00)
[2017-06-23 10:50] LABS: EOS % 0.1 % (1.5-5.0); RED CELL DISTRIBUTION WIDTH 17.3 % (11.5-14.5)
[2017-06-23 10:58] LABS: BILIRUBIN,TOTAL 1.3 mg/dL (0.2-1.3); CALCIUM 8.4 mg/dL (8.4-10.5); POTASSIUM 4.5 mmol/L (3.6-5.0)
[2017-06-23 11:19] LABS: GRAN # 10.92 (1.4-6.5); GRAN % 81.3 % (50.0-68.0); HEMATOCRIT 38.7 % (42.0-52.0); LYMPH # 0.7 (1.2-3.4); LYMPH % 5.3 % (22.0-35.0); MEAN CELL VOLUME 90.6 fl (80.0-105.0); MEAN CORPUSCULAR HEMOGLOBIN 28.3 pg (25.0-35.0); MEAN CORPUSCULAR HGB CONC 31.3 g/dl (31.0-37.0); MONO # 1.8 (0.1-0.6); MONO % 13.3 % (1.0-6.0); WHITE BLOOD COUNT 13.4 10^3/ul (4.5-11.0)
--- NOTE | 2017-06-23 11:37 | RAD ---
HISTORY: pneumonia COMPARISON: Multiple prior chest x-rays, the most recent chest x-ray performed 06/20/17 TECHNIQUE: Chest PA and lateral FINDINGS: LUNGS: Patchy and nodular airspace opacities within the left greater than right felipe thorax. PLEURA: Small bilateral pleural effusions. Fluid is noted within the right major fissure. No definite pneumothorax . CARDIOVASCULAR: Cardiomegaly. OSSEOUS STRUCTURES: Degenerative changes. VISUALIZED UPPER ABDOMEN: Unremarkable. OTHER FINDINGS: None. IMPRESSION: Patchy and nodular airspace opacities within the left greater than right felipe thorax. Small bilateral pleural effusions. Fluid is noted within the right major fissure. Cardiomegaly.
--- NOTE | 2017-06-23 11:56 | PN ---
DATE: 06/23/2017 PULMONARY PROGRESS NOTE SUBJECTIVE: As Dr. Hope has recently stated, the patient appears comfortable with no shortness of breath. The patient is at his baseline from what I can see. He is normally seen in my office. He has a baseline minor dyspnea, which never goes away completely. This is associated with some anxiety. The patient appears the same at this point in time. He is upset that he cannot be transferred to TCU for another 3 days. He does not want this much attention. He has no other complaints at this moment. There are no respiratory complaints and he states that he is breathing like normal. PHYSICAL EXAMINATION: GENERAL: He remains comfortable. VITAL SIGNS: Stable with a temperature of 98.0, pulse of 60, respiratory rate of 16, blood pressure 150/84, O2 saturation 98% without oxygen. HEENT: Normocephalic, atraumatic. Eyes, PERRLA. EOM is full. Conjunctivae pink. NECK: Supple. No JVD. No bruit. No mass. No thyromegaly. CARDIOVASCULAR: Regular rhythm. S1 and S2 without gallop or rub. There is a very soft systolic ejection murmur at the lower left sternal border. CHEST: Global decrease in breath sounds without rales, rhonchi or wheezes. Increased AP diameter. EXTREMITIES: Trace edema in the lower extremities. No cyanosis or clubbing. There is no Homans' sign. Skin is warm. Cellulitis in the lower extremities. NEUROLOGIC: No focal findings. Downgoing Babinski's. No findings consistent with abnormalities. Lymphadenopathy is not present. There are no nodes noted in the cervical, inguinal or axillary areas. The supraclavicular notch is normal. HOSPITAL COURSE: I reviewed the x-rays as well as the earlier chart and discussed this case with Dr. Seven Hope. IMPRESSION: 1. Status post respiratory failure. 2. Subacute cerebrovascular accident. 3. History of chronic obstructive pulmonary disease that is stable at this point in time. 4. Bilateral pneumonia, which has improved. 5. Myocardial infarction. 6. Renal insufficiency. 7. Cellulitis. PLAN: 1. The patient must have a followup chest x-ray in 1 to 2 weeks to make sure that the pneumonia has resolved completely. 2. He should continue to have his pulmonary medications as before. He can revert to his home medications once corticosteroids are decreased. We would continue these oral corticosteroids at this time and taper slowly. I would ask him to come and see me in the office within a week of discharge. Please note that he is pending going to TCU where we will see him again and make sure that he is discharged on the appropriate medications. If any problems with Mr. Renteria, I would ask Dr. Alisa Julien to contact me. I am more than happy to get involved with Mr. Renteria as he has been my prior patient for many years. Thank you for the opportunity to see Mr. Renteria. We will look forward to seeing him out of the hospital in stable condition. We will discuss everything with the patient's primary medical doctor upon discharge as well. Evert Hensley MD
--- NOTE | 2017-06-23 14:40 | PN ---
DATE: 06/23/2017 SUBJECTIVE: The patient is seen lying in bed on 5R. He is complaining of some nausea and abdominal discomfort this morning. He denies any chest pain or dyspnea. CURRENT MEDICATIONS: Remain Catapres p.r.n., ciprofloxacin, albuterol inhaler, Ecotrin, Flomax, subcutaneous heparin, Imdur 60 mg daily, Lipitor 10 mg daily, metoprolol 50 mg b.i.d., Norvasc 5 mg daily, prednisone 30 mg daily, Protonix and Senokot. OBJECTIVE: GENERAL: He is an elderly man who appears mildly uncomfortable. VITAL SIGNS: His blood pressure is 180/78 with a pulse of 70, respirations are 16. He is afebrile. HEENT: No JVD. CHEST: Few scattered rhonchi. HEART: PMI displaced laterally with soft tones noted. ABDOMEN: Soft, distended. Bowel sounds appear hypoactive. EXTREMITIES: Both legs are wrapped. DIAGNOSTIC DATA: No blood work pending from this morning. IMPRESSION: 1. Abdominal discomfort, needs further evaluation, maybe secondary to constipation, but gastrointestinal evaluation to exclude an intraabdominal process is advised. 2. Recent respiratory failure, clinically improved. 3. Moderately severe aortic insufficiency. 4. Mild aortic stenosis. 5. Moderately severe mitral regurgitation, clinically compensated. 6. Severe left ventricular dysfunction. 7. Coronary artery disease, status post remote myocardial infarction. 8. Chronic renal insufficiency. 9. Bilateral leg cellulitis, remains on antibiotic therapy. RECOMMENDATIONS: His current cardiac medications will be continued for now. GI evaluation is advised. Continue conservative cardiac management as planned at this time. We will be happy to follow along as needed. Seth Gomez MD
--- NOTE | 2017-06-23 15:38 | CP.PCM.DIS ---
<HOLLY CASEY - Last Filed: 06/23/17 15:57> Provider - Provider Date of Admission: 06/13/17 19:23 Attending physician: Stephanie Julien MD Consults: Nephrology: Frandy Cardiology: Santa ID: [id number] Podiatry: Christreginashaina Pulm: Jayy Neuro: Matthew Time Spent in preparation of Discharge (in minutes): 55 Diagnosis - Discharge Diagnosis (1) NSTEMI (non-ST elevated myocardial infarction) Status: Acute Priority: High (2) COPD (chronic obstructive pulmonary disease) Status: Chronic Priority: High (3) Altered mental status Status: Acute Priority: High (4) Congestive heart failure (CHF) Status: Chronic Priority: High (5) Respiratory acidosis Status: Chronic Priority: High Hospital Course - Lab Results Lab Results: Micro Results 06/13/17 22:07 Blood-Venous Blood Culture - Final NO GROWTH AFTER 5 DAYS 06/13/17 22:07 Blood-Venous Gram Stain - Final TEST NOT PERFORMED 06/13/17 21:47 Nose MRSA Culture (Admit) - Final MRSA NOT DETECTED 06/14/17 08:30 Foot - Left Gram Stain - Final 06/14/17 08:30 Foot - Left Wound Culture - Final Klebsiella Oxytoca Staphylococcus Aureus 06/13/17 23:30 Leg - Right Gram Stain - Final 06/13/17 23:30 Leg - Right Wound Culture - Final Escherichia Coli Staphylococcus Aureus 06/13/17 23:30 Leg - Left Gram Stain - Final 06/13/17 23:30 Leg - Left Wound Culture - Final Klebsiella Oxytoca Staphylococcus Aureus Most Recent Lab Values WBC 13.4 10^3/ul (4.5-11.0) H D 06/23/17 10:30 RBC 4.27 10^6/uL (3.5-6.1) 06/23/17 10:30 Hgb 12.1 g/dL (14.0-18.0) L 06/23/17 10:30 Hct 38.7 % (42.0-52.0) L 06/23/17 10:30 MCV 90.6 fl (80.0-105.0) 06/23/17 10:30 MCH 28.3 pg (25.0-35.0) 06/23/17 10:30 MCHC 31.3 g/dl (31.0-37.0) 06/23/17 10:30 RDW 17.3 % (11.5-14.5) H 06/23/17 10:30 Plt Count 129 10^3/uL (120.0-450.0) 06/23/17 10:30 MPV 12.0 fl (7.0-11.0) H 06/23/17 10:30 Gran % 81.3 % (50.0-68.0) H 06/23/17 10:30 Lymph % (Auto) 5.3 % (22.0-35.0) L 06/23/17 10:30 Sibley % (Auto) 13.3 % (1.0-6.0) H 06/23/17 10:30 Eos % (Auto) 0.1 % (1.5-5.0) L 06/23/17 10:30 Baso % (Auto) 0.0 % (0.0-3.0) 06/23/17 10:30 Gran # 10.92 (1.4-6.5) H 06/23/17 10:30 Lymph # 0.7 (1.2-3.4) L 06/23/17 10:30 [place]y # 1.8 (0.1-0.6) H 06/23/17 10:30 Eos # 0.0 (0.0-0.7) 06/23/17 10:30 Baso # 0.00 K/mm3 (0.0-2.0) 06/23/17 10:30 Neutrophils % (Manual) 89 % (50.0-70.0) H 06/22/17 06:00 Band Neutrophils % 3 % (0-2) H 06/22/17 06:00 Lymphocytes % (Manual) 4 % (22.0-35.0) L 06/22/17 06:00 Monocytes % (Manual) 4 % (1.0-6.0) 06/22/17 06:00 Toxic Granulation Slight 06/15/17 06:00 Platelet Evaluation Normal (NORMAL) 06/22/17 06:00 Large Platelets Present 06/15/17 06:00 Basophilic Stippling Slight 06/19/17 05:10 Anisocytosis (manual) Slight 06/19/17 05:10 PT 14.7 Seconds (9.9-11.8) H 06/13/17 17:33 INR 1.36 (0.93-1.08) H 06/13/17 17:33 APTT 26.6 Seconds (23.7-30.8) 06/19/17 05:10 pCO2 59 mm/Hg (35-45) H 06/17/17 05:45 pO2 107.0 mm/Hg (80-100) H 06/17/17 05:45 HCO3 29.7 mmol/L (21-28) H 06/17/17 05:45 ABG pH 7.31 (7.35-7.45) L 06/17/17 05:45 ABG Total CO2 31.5 mmol.L (22-28) H 06/17/17 05:45 ABG O2 Saturation 99.2 % (95-98) H 06/17/17 05:45 ABG O2 Content 16.1 ML/dl (15-23) 06/17/17 05:45 ABG Base Excess 2.2 mmol/L (-2.0-3.0) 06/17/17 05:45 ABG Hemoglobin 11.9 g/dL (11.7-17.4) 06/17/17 05:45 ABG Carboxyhemoglobin 2.2 % (0.5-1.5) H 06/17/17 05:45 POC ABG HHb (Measured) 0.8 % (0-5) 06/17/17 05:45 ABG Methemoglobin 1.3 % (0.0-3.0) 06/17/17 05:45 ABG O2 Capacity 16.2 mL/dl (16-24) 06/17/17 05:45 ABG Potassium 5.1 mmol/L (3.6-5.2) 06/13/17 18:00 VBG pH 7.52 (7.32-7.43) H 06/14/17 06:01 VBG pCO2 40.0 (40-60) 06/14/17 06:01 VBG HCO3 32.7 mmol/l (21-28) H 06/14/17 06:01 VBG Total CO2 33.9 mmol.L (22-28) H 06/14/17 06:01 VBG O2 Sat (Calc) 99.2 % (40-65) H 06/14/17 06:01 VBG Base Excess 9.0 mmol/L (0.0-2.0) H 06/14/17 06:01 VBG Potassium 4.0 mmol/L (3.6-5.2) 06/14/17 06:01 Hgb O2 Saturation 95.6 % (95.0-98.0) 06/17/17 05:45 Sodium 153.0 mmol/L (132-148) H 06/14/17 06:01 Chloride 115.0 mmol/L (98-107) H 06/14/17 06:01 Glucose 145 mg/dl (75-110) H 06/14/17 06:01 Lactate 1.7 mmol/L (0.7-2.1) 06/14/17 06:01 Mechanical Rate 16 06/13/17 18:00 FiO2 28.0 % 06/17/17 05:45 Tidal Volume 450 06/13/17 18:00 PEEP 5 06/13/17 18:00 Sodium 143 mmol/L (132-148) 06/23/17 10:30 Potassium 4.5 mmol/L (3.6-5.0) 06/23/17 10:30 Chloride 104 mmol/L (98-107) 06/23/17 10:30 Carbon Dioxide 32 mmol/L (21-33) 06/23/17 10:30 Anion Gap 12 (10-20) 06/23/17 10:30 BUN 64 mg/dL (7-21) H 06/23/17 10:30 Creatinine 1.7 mg/dL (0.5-1.4) H 06/23/17 10:30 Est GFR ( Amer) 47 06/23/17 10:30 Est GFR (Non-Af Amer) 38 06/23/17 10:30 POC Glucose (mg/dL) 136 mg/dL (65-110) H 06/14/17 06:34 Random Glucose 103 mg/dL (70-110) 06/23/17 10:30 Uric Acid 8.2 mg/dL (3.5-8.5) 06/15/17 06:00 Calcium 8.4 mg/dL (8.4-10.5) 06/23/17 10:30 Phosphorus 5.0 mg/dL (2.5-4.5) H 06/20/17 07:30 Magnesium 1.8 mg/dL (1.7-2.2) 06/19/17 05:10 Total Bilirubin 1.3 mg/dL (0.2-1.3) 06/23/17 10:30 AST 22 U/L (17-59) 06/23/17 10:30 ALT 45 U/L (7-56) 06/23/17 10:30 Alkaline Phosphatase 118 U/L (38-126) 06/23/17 10:30 Ammonia 11 umol/L (9-33) 06/13/17 23:40 Lactate Dehydrogenase 692 U/L (333-699) 06/13/17 18:43 Total Creatine Kinase 99 U/L (35-230) 06/14/17 08:15 Troponin I 0.16 ng/mL H* D 06/17/17 15:25 NT-Pro-B Natriuret Pep 04155 pg/mL (0-450) H 06/13/17 18:43 Total Protein 6.0 g/dL (5.8-8.3) 06/23/17 10:30 Albumin 3.0 g/dL (3.0-4.8) 06/23/17 10:30 Globulin 3.0 gm/dL 06/23/17 10:30 Albumin/Globulin Ratio 1.0 (1.1-1.8) L 06/23/17 10:30 Triglycerides 62 mg/dL (35-160) 06/14/17 06:05 Cholesterol 118 mg/dL (130-200) L 06/14/17 06:05 LDL Cholesterol Direct 81 mg/dL (0-129) 06/14/17 06:05 HDL Cholesterol 25 mg/dL (29-60) L 06/14/17 06:05 Lipase 34 U/L (23-300) 06/13/17 18:43 25-OH Vitamin D Total < 12.8 NG/ML (30.0-100.0) L 06/21/17 07:00 Procalcitonin 0.48 NG/ML (0.19-0.49) 06/14/17 08:15 TSH 3rd Generation 3.08 mIU/mL (0.46-4.68) 06/13/17 22:30 PTH Intact Whole Molec 302 pg/mL (14-64) H 06/20/17 21:23 Arterial Blood Potassium 5.1 mmol/L (3.6-5.2) 06/13/17 18:00 Venous Blood Potassium 4.0 mmol/L (3.6-5.2) 06/14/17 06:01 Urine Color Dark yellow (YELLOW) 06/13/17 18:03 Urine Appearance Sl cloudy (CLEAR) 06/13/17 18:03 Urine pH 5.5 (4.7-8.0) 06/13/17 18:03 Ur Specific [place] >= 1.030 (1.005-1.035) 06/13/17 18:03 Urine Protein >=300 mg/dL (<30 mg/dL) H 06/13/17 18:03 Urine Glucose (UA) Negative mg/dL (NEGATIVE) 06/13/17 18:03 Urine Ketones Negative mg/dL (NEGATIVE) 06/13/17 18:03 Urine Blood Small (NEGATIVE) H 06/13/17 18:03 Urine Nitrate Negative (NEGATIVE) 06/13/17 18:03 Urine Bilirubin Moderate (NEGATIVE) H 06/13/17 18:03 Urine Urobilinogen 1.0 E.U./dL (<1 E.U./dL) H 06/13/17 18:03 Ur Leukocyte Esterase Negative Marita/uL (NEGATIVE) 06/13/17 18:03 Urine RBC 2 - 5 /hpf (0-2) 06/13/17 18:03 Urine WBC 1 - 3 /hpf (0-6) 06/13/17 18:03 Ur Epithelial Cells 0 - 2 /hpf (0-5) 06/13/17 18:03 Urine Bacteria Few (NEG) 06/13/17 18:03 Hyaline Casts 0 - 2 /hpf 06/13/17 18:03 Fine Granular Casts 0 - 2 /hpf (0-2) 06/13/17 18:03 Coarse Granular Casts Trace /hpf (0-2) H 06/13/17 18:03 Urine Osmolality 326 mosm/kg (50-645) 06/13/17 22:59 Ur Random Creatinine 78 mg/dL 06/16/17 11:00 U Random Total Protein 615 mg/g creat (22-128) H 06/16/17 11:00 Ur Random Sodium 111 meq/L 06/13/17 22:59 Ur Random Potassium 37.9 meq/L 06/13/17 22:59 Urine Microalbumin 209.3 mg/L (0.0-16.6) H 06/15/17 14:05 Random Vancomycin 21.3 ug/mL (20.0-40.0) 06/20/17 21:23 Salicylates < 1 mg/dL (2.0-20.0) L 06/13/17 22:07 Urine Opiates Screen Negative (NEGATIVE) 06/13/17 22:59 Urine Methadone Screen Negative (NEGATIVE) 06/13/17 22:59 Ur Barbiturates Screen Negative (NEGATIVE) 06/13/17 22:59 Ur Phencyclidine Scrn Negative (NEGATIVE) 06/13/17 22:59 Ur Amphetamines Screen Negative (NEGATIVE) 06/13/17 22:59 U Benzodiazepines Scrn Positive (NEGATIVE) H 06/13/17 22:59 U Oth Cocaine Metabols Negative (NEGATIVE) 06/13/17 22:59 U Cannabinoids Screen Negative (NEGATIVE) 06/13/17 22:59 Alcohol, Quantitative < 10 mg/dL (0-10) 06/13/17 22:07 IgG 1344 mg/dL (694-1618) 06/18/17 05:00 IgA 336 mg/dL (81-463) 06/18/17 05:00 IgM 63 mg/dL (48-271) 06/18/17 05:00 Serum Immunofixation Detected (Not Detected) H 06/18/17 05:00 ANCA Screen Negative (NEGATIVE) 06/15/17 06:00 c-ANCA Titer TNP 06/15/17 06:00 Proteinase 3 (PR3) <1.0 AI (<1.0) 06/15/17 06:00 p-ANCA Titer TNP 06/15/17 06:00 Atypical p-ANCA Titer TNP 06/15/17 06:00 Myeloperoxidase Ab <1.0 AI (<1.0) 06/15/17 06:00 Complement C3 77.0 mg/dL (88.0-165.0) L 06/15/17 06:00 Complement C4 20.8 mg/dL (14.0-44.0) 06/15/17 06:00 Free [place] Light Chains 42.1 mg/L (3.3-19.4) H 06/18/17 05:00 Free [place] Light Chain 32.5 mg/L (5.7-26.3) H 06/18/17 05:00 Free [place]/Lambda Ratio 1.30 (0.26-1.65) 06/18/17 05:00 - Hospital Course Hospital Course: 87 yo M with PMH of COPD, CHF, HTN, DM, NSTEMI, and PAD originally presented to ED by EMS for unresponsvieness, pinpoint pupils, AMS. Patient was intubated in the ER for hypercapnic respiratory failure and transferred to ICU. 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 Patient was extubated on hospital day 3, when his respiratory status improved, but continued to have AMS. Patient's mental status improved the following day, and he was transferred out of the ICU. During his hospitalization, he also had surgery with podiatry for debridement of his RLE. He remained in his hospital pending clearance by pulmonology while continuing to taper steroids. Two days ago, he was noted to be azotemic and hyperkalemic, with uptrending sodium, so lasix was held and he was started on gentle free- water hydration by nephro. Today, he remains off lasix until tomorrow per nephro, but is off IV fluids. Otherwise, patient feels well, though is complaining of constipation, last BM was 3 days ago. He is started on Senna/Colace, and given a one time dose of lactulose. Patient denies any CP, SOB, N/V/D, abdominal pain, F/C. He is awake, alert, and oriented to person, place and time. He is mentating well, and has returned to his baseline. Patient's condition and medications were discussed, all questions answered to his satisfaction, and was discharged to the transitional care unit for rehabilitation of weakness and deconditioning. He should continue his antibiotics to completion, and continue to taper down slowly on the steroids. Patient seen, discussed, and reviewed with attending. Discharge Exam - Head Exam Head Exam: ATRAUMATIC, NORMOCEPHALIC - Eye Exam Eye Exam: EOMI, PERRL - ENT Exam ENT Exam: Mucous Membranes Moist, Normal Oropharynx - Neck Exam Neck exam: Normal Inspection - Respiratory Exam Respiratory Exam: Rales (bibasilar) - Cardiovascular Exam Cardiovascular Exam: RRR, +S1, +S2 Additional comments: B/L 2+ to 3+ pitting edema in both UE to elbows. No LE edema, but assessment is limited by compressive wound dressings - GI/Abdominal Exam GI & Abdominal Exam: Distended, Firm, Normal Bowel Sounds. absent: Tenderness - Neurological Exam Neurological exam: Alert, CN II-XII Intact, Oriented x3 - Psychiatric Exam Psychiatric exam: Normal Affect, Normal Mood - Skin Skin Exam: Dry, Intact Additional comments: Diffuse ecchymoses in various stages of healing on b/l UE. No new ecchymoses. Discharge Plan - Follow Up Plan Condition: CRITICAL Disposition: REHAB FACILITY/REHAB UNIT Patient education suggested?: Yes Instructions: Heart Failure (DC), MRSA (Methicillin Resistant Staphylococcus Aureus) (DC), COPD (Chronic Obstructive Pulmonary Disease) (DC), Edema (DC) Additional Instructions: Transfer to TCU for rehabilitation of weakness and deconditioning 1. Continue all medications as during inpatient admission 2. Lasix is temporarily held. Pls follow with assistant sales director re: restarting laxis PO 40mg daily 3. Follow up with hardboard supervisor Dr. Hope as indicated 4. Follow up with radiation officer Dr. Pratt as indicated 5. Follow up with PCP within 1 week of discharge 6. For any new or worsening concerns, contact PCP immediately or return to ER Referrals: Seven Hope MD [Staff Provider] - Feliciano Wise MD [Staff Provider] - Bolivar Pratt MD [Staff Provider] - Jim Martin MD [Staff Provider] - Siri Buitrago DPM [Staff Provider] - Shakeel Castro MD [Staff Provider] - <Roxana Cannon - Last Filed: 06/23/17 17:52> Provider - Provider Date of Admission: 06/13/17 19:23 Attending physician: Stephanie Julien MD Hospital Course - Lab Results Lab Results: Micro Results 06/13/17 22:07 Blood-Venous Blood Culture - Final NO GROWTH AFTER 5 DAYS 06/13/17 22:07 Blood-Venous Gram Stain - Final TEST NOT PERFORMED 06/13/17 21:47 Nose MRSA Culture (Admit) - Final MRSA NOT DETECTED 06/14/17 08:30 Foot - Left Gram Stain - Final 06/14/17 08:30 Foot - Left Wound Culture - Final Klebsiella Oxytoca Staphylococcus Aureus 06/13/17 23:30 Leg - Right Gram Stain - Final 06/13/17 23:30 Leg - Right Wound Culture - Final Escherichia Coli Staphylococcus Aureus 06/13/17 23:30 Leg - Left Gram Stain - Final 06/13/17 23:30 Leg - Left Wound Culture - Final Klebsiella Oxytoca Staphylococcus Aureus Most Recent Lab Values WBC 13.4 10^3/ul (4.5-11.0) H D 06/23/17 10:30 RBC 4.27 10^6/uL (3.5-6.1) 06/23/17 10:30 Hgb 12.1 g/dL (14.0-18.0) L 06/23/17 10:30 Hct 38.7 % (42.0-52.0) L 06/23/17 10:30 MCV 90.6 fl (80.0-105.0) 06/23/17 10:30 MCH 28.3 pg (25.0-35.0) 06/23/17 10:30 MCHC 31.3 g/dl (31.0-37.0) 06/23/17 10:30 RDW 17.3 % (11.5-14.5) H 06/23/17 10:30 Plt Count 129 10^3/uL (120.0-450.0) 06/23/17 10:30 MPV 12.0 fl (7.0-11.0) H 06/23/17 10:30 Gran % 81.3 % (50.0-68.0) H 06/23/17 10:30 Lymph % (Auto) 5.3 % (22.0-35.0) L 06/23/17 10:30 S[place] % (Auto) 13.3 % (1.0-6.0) H 06/23/17 10:30 Eos % (Auto) 0.1 % (1.5-5.0) L 06/23/17 10:30 Baso % (Auto) 0.0 % (0.0-3.0) 06/23/17 10:30 Gran # 10.92 (1.4-6.5) H 06/23/17 10:30 Lymph # 0.7 (1.2-3.4) L 06/23/17 10:30 [place] # 1.8 (0.1-0.6) H 06/23/17 10:30 Eos # 0.0 (0.0-0.7) 06/23/17 10:30 Baso # 0.00 K/mm3 (0.0-2.0) 06/23/17 10:30 Neutrophils % (Manual) 89 % (50.0-70.0) H 06/22/17 06:00 Band Neutrophils % 3 % (0-2) H 06/22/17 06:00 Lymphocytes % (Manual) 4 % (22.0-35.0) L 06/22/17 06:00 Monocytes % (Manual) 4 % (1.0-6.0) 06/22/17 06:00 Toxic Granulation Slight 06/15/17 06:00 Platelet Evaluation Normal (NORMAL) 06/22/17 06:00 Large Platelets Present 06/15/17 06:00 Basophilic Stippling Slight 06/19/17 05:10 Anisocytosis (manual) Slight 06/19/17 05:10 PT 14.7 Seconds (9.9-11.8) H 06/13/17 17:33 INR 1.36 (0.93-1.08) H 06/13/17 17:33 APTT 26.6 Seconds (23.7-30.8) 06/19/17 05:10 pCO2 59 mm/Hg (35-45) H 06/17/17 05:45 pO2 107.0 mm/Hg (80-100) H 06/17/17 05:45 HCO3 29.7 mmol/L (21-28) H 06/17/17 05:45 ABG pH 7.31 (7.35-7.45) L 06/17/17 05:45 ABG Total CO2 31.5 mmol.L (22-28) H 06/17/17 05:45 ABG O2 Saturation 99.2 % (95-98) H 06/17/17 05:45 ABG O2 Content 16.1 ML/dl (15-23) 06/17/17 05:45 ABG Base Excess 2.2 mmol/L (-2.0-3.0) 06/17/17 05:45 ABG Hemoglobin 11.9 g/dL (11.7-17.4) 06/17/17 05:45 ABG Carboxyhemoglobin 2.2 % (0.5-1.5) H 06/17/17 05:45 POC ABG HHb (Measured) 0.8 % (0-5) 06/17/17 05:45 ABG Methemoglobin 1.3 % (0.0-3.0) 06/17/17 05:45 ABG O2 Capacity 16.2 mL/dl (16-24) 06/17/17 05:45 ABG Potassium 5.1 mmol/L (3.6-5.2) 06/13/17 18:00 VBG pH 7.52 (7.32-7.43) H 06/14/17 06:01 VBG pCO2 40.0 (40-60) 06/14/17 06:01 VBG HCO3 32.7 mmol/l (21-28) H 06/14/17 06:01 VBG Total CO2 33.9 mmol.L (22-28) H 06/14/17 06:01 VBG O2 Sat (Calc) 99.2 % (40-65) H 06/14/17 06:01 VBG Base Excess 9.0 mmol/L (0.0-2.0) H 06/14/17 06:01 VBG Potassium 4.0 mmol/L (3.6-5.2) 06/14/17 06:01 Hgb O2 Saturation 95.6 % (95.0-98.0) 06/17/17 05:45 Sodium 153.0 mmol/L (132-148) H 06/14/17 06:01 Chloride 115.0 mmol/L (98-107) H 06/14/17 06:01 Glucose 145 mg/dl (75-110) H 06/14/17 06:01 Lactate 1.7 mmol/L (0.7-2.1) 06/14/17 06:01 Mechanical Rate 16 06/13/17 18:00 FiO2 28.0 % 06/17/17 05:45 Tidal Volume 450 06/13/17 18:00 PEEP 5 06/13/17 18:00 Sodium 143 mmol/L (132-148) 06/23/17 10:30 Potassium 4.5 mmol/L (3.6-5.0) 06/23/17 10:30 Chloride 104 mmol/L (98-107) 06/23/17 10:30 Carbon Dioxide 32 mmol/L (21-33) 06/23/17 10:30 Anion Gap 12 (10-20) 06/23/17 10:30 BUN 64 mg/dL (7-21) H 06/23/17 10:30 Creatinine 1.7 mg/dL (0.5-1.4) H 06/23/17 10:30 Est GFR ( Amer) 47 06/23/17 10:30 Est GFR (Non-Af Amer) 38 06/23/17 10:30 POC Glucose (mg/dL) 136 mg/dL (65-110) H 06/14/17 06:34 Random Glucose 103 mg/dL (70-110) 06/23/17 10:30 Uric Acid 8.2 mg/dL (3.5-8.5) 06/15/17 06:00 Calcium 8.4 mg/dL (8.4-10.5) 06/23/17 10:30 Phosphorus 5.0 mg/dL (2.5-4.5) H 06/20/17 07:30 Magnesium 1.8 mg/dL (1.7-2.2) 06/19/17 05:10 Total Bilirubin 1.3 mg/dL (0.2-1.3) 06/23/17 10:30 AST 22 U/L (17-59) 06/23/17 10:30 ALT 45 U/L (7-56) 06/23/17 10:30 Alkaline Phosphatase 118 U/L (38-126) 06/23/17 10:30 Ammonia 11 umol/L (9-33) 06/13/17 23:40 Lactate Dehydrogenase 692 U/L (333-699) 06/13/17 18:43 Total Creatine Kinase 99 U/L (35-230) 06/14/17 08:15 Troponin I 0.16 ng/mL H* D 06/17/17 15:25 NT-Pro-B Natriuret Pep 59000 pg/mL (0-450) H 06/13/17 18:43 Total Protein 6.0 g/dL (5.8-8.3) 06/23/17 10:30 Albumin 3.0 g/dL (3.0-4.8) 06/23/17 10:30 Globulin 3.0 gm/dL 06/23/17 10:30 Albumin/Globulin Ratio 1.0 (1.1-1.8) L 06/23/17 10:30 Triglycerides 62 mg/dL (35-160) 06/14/17 06:05 Cholesterol 118 mg/dL (130-200) L 06/14/17 06:05 LDL Cholesterol Direct 81 mg/dL (0-129) 06/14/17 06:05 HDL Cholesterol 25 mg/dL (29-60) L 06/14/17 06:05 Lipase 34 U/L (23-300) 06/13/17 18:43 25-OH Vitamin D Total < 12.8 NG/ML (30.0-100.0) L 06/21/17 07:00 Procalcitonin 0.48 NG/ML (0.19-0.49) 06/14/17 08:15 TSH 3rd Generation 3.08 mIU/mL (0.46-4.68) 06/13/17 22:30 PTH Intact Whole Molec 302 pg/mL (14-64) H 06/20/17 21:23 Arterial Blood Potassium 5.1 mmol/L (3.6-5.2) 06/13/17 18:00 Venous Blood Potassium 4.0 mmol/L (3.6-5.2) 06/14/17 06:01 Urine Color Dark yellow (YELLOW) 06/13/17 18:03 Urine Appearance Sl cloudy (CLEAR) 06/13/17 18:03 Urine pH 5.5 (4.7-8.0) 06/13/17 18:03 Ur Specific [place] >= 1.030 (1.005-1.035) 06/13/17 18:03 Urine Protein >=300 mg/dL (<30 mg/dL) H 06/13/17 18:03 Urine Glucose (UA) Negative mg/dL (NEGATIVE) 06/13/17 18:03 Urine Ketones Negative mg/dL (NEGATIVE) 06/13/17 18:03 Urine Blood Small (NEGATIVE) H 06/13/17 18:03 Urine Nitrate Negative (NEGATIVE) 06/13/17 18:03 Urine Bilirubin Moderate (NEGATIVE) H 06/13/17 18:03 Urine Urobilinogen 1.0 E.U./dL (<1 E.U./dL) H 06/13/17 18:03 Ur Leukocyte Esterase Negative Marita/uL (NEGATIVE) 06/13/17 18:03 Urine RBC 2 - 5 /hpf (0-2) 06/13/17 18:03 Urine WBC 1 - 3 /hpf (0-6) 06/13/17 18:03 Ur Epithelial Cells 0 - 2 /hpf (0-5) 06/13/17 18:03 Urine Bacteria Few (NEG) 06/13/17 18:03 Hyaline Casts 0 - 2 /hpf 06/13/17 18:03 Fine Granular Casts 0 - 2 /hpf (0-2) 06/13/17 18:03 Coarse Granular Casts Trace /hpf (0-2) H 06/13/17 18:03 Urine Osmolality 326 mosm/kg (50-645) 06/13/17 22:59 Ur Random Creatinine 78 mg/dL 06/16/17 11:00 U Random Total Protein 615 mg/g creat (22-128) H 06/16/17 11:00 Ur Random Sodium 111 meq/L 06/13/17 22:59 Ur Random Potassium 37.9 meq/L 06/13/17 22:59 Urine Microalbumin 209.3 mg/L (0.0-16.6) H 06/15/17 14:05 Random Vancomycin 21.3 ug/mL (20.0-40.0) 06/20/17 21:23 Salicylates < 1 mg/dL (2.0-20.0) L 06/13/17 22:07 Urine Opiates Screen Negative (NEGATIVE) 06/13/17 22:59 Urine Methadone Screen Negative (NEGATIVE) 06/13/17 22:59 Ur Barbiturates Screen Negative (NEGATIVE) 06/13/17 22:59 Ur Phencyclidine Scrn Negative (NEGATIVE) 06/13/17 22:59 Ur Amphetamines Screen Negative (NEGATIVE) 06/13/17 22:59 U Benzodiazepines Scrn Positive (NEGATIVE) H 06/13/17 22:59 U Oth Cocaine Metabols Negative (NEGATIVE) 06/13/17 22:59 U Cannabinoids Screen Negative (NEGATIVE) 06/13/17 22:59 Alcohol, Quantitative < 10 mg/dL (0-10) 06/13/17 22:07 IgG 1344 mg/dL (694-1618) 06/18/17 05:00 IgA 336 mg/dL (81-463) 06/18/17 05:00 IgM 63 mg/dL (48-271) 06/18/17 05:00 Serum Immunofixation Detected (Not Detected) H 06/18/17 05:00 ANCA Screen Negative (NEGATIVE) 06/15/17 06:00 c-ANCA Titer TNP 06/15/17 06:00 Proteinase 3 (PR3) <1.0 AI (<1.0) 06/15/17 06:00 p-ANCA Titer TNP 06/15/17 06:00 Atypical p-ANCA Titer TNP 06/15/17 06:00 Myeloperoxidase Ab <1.0 AI (<1.0) 06/15/17 06:00 Complement C3 77.0 mg/dL (88.0-165.0) L 06/15/17 06:00 Complement C4 20.8 mg/dL (14.0-44.0) 06/15/17 06:00 Free [place] Light Chains 42.1 mg/L (3.3-19.4) H 06/18/17 05:00 Free [place] Light Chain 32.5 mg/L (5.7-26.3) H 06/18/17 05:00 Free [place]/Lambda Ratio 1.30 (0.26-1.65) 06/18/17 05:00 Attending/Attestation - Attestation I have personally seen and examined this patient.: Yes I have fully participated in the care of the patient.: Yes I have reviewed all pertinent clinical information, including history, physical exam and plan: Yes Notes (Text): 06/23/17 17:50 Patient seen and examined at bedside. No overnight issues reported. vitals, labs , orders and notes reviewed. Patient denies any new complaints, admits to some constipation. Reports poor appetite. Podiatry dressing change ongoing daily. + crackles on bilateral lung daily + [place], abdomen is soft with BS+. L/E in dressing with 2+ pitting edema. Agree with the discharge plan as outlined by the resident.
--- NOTE | 2017-06-23 16:29 | CP.PCM.PN ---
Subjective - Date & Time of Evaluation Date of Evaluation: 06/23/17 Time of Evaluation: 16:00 - Subjective Subjective: Infectious Disease Follow Up: June 23, 2017 87 yo male brought in for lethargy and AMS. The patient has an extensive medical history that includes COPD, CHF last known EF of 30-35% in 08/2016, HTN , Paget's disease and PAD. The patient required intubation and ventilation once arriving in [facility]. He has been extubated. Remains extubated and feeling better. He is much more awake and alert today. No major complaints. He does complain of bilateral lower extremity pain. Went to OR for debridement of bilateral stage III ulcers of the lower extremities. Currently on the med-surg floor. He is growing Klebsiella and Staph Aureus sensitive to Cipro. Objective - Vital Signs/Intake and Output Vital Signs (last 24 hours): Temp Pulse Resp BP Pulse Ox 97.6 F 69 18 180/78 H 94 L 06/23/17 07:30 06/23/17 09:56 06/23/17 07:30 06/23/17 09:56 06/23/17 07:30 Intake and Output: 06/23/17 06/23/17 06:59 18:59 Intake Total 960 240 Output Total 520 Balance 440 240 - Medications Medications: Current Medications Acetaminophen (Tylenol 325mg Tab) 650 mg PO Q6H PRN PRN Reason: Pain, moderate (4-7) Last Admin: 06/20/17 21:09 Dose: 650 mg Albuterol/Ipratropium (Duoneb 3 Mg/0.5 Mg (3 Ml) Ud) 3 ml IH [id number] [facility] Last Admin: 06/23/17 13:10 Dose: 3 ml Albuterol/Ipratropium (Duoneb 3 Mg/0.5 Mg (3 Ml) Ud) 3 ml IH Q2H PRN PRN Reason: Shortness of Breath Last Admin: 06/20/17 23:36 Dose: 3 ml Amlodipine Besylate (Norvasc) 5 mg PO DAILY [facility] Last Admin: 06/23/17 09:55 Dose: 5 mg Aspirin (Ecotrin) 81 mg PO DAILY [facility] Last Admin: 06/23/17 09:56 Dose: 81 mg Atorvastatin Calcium (Lipitor) 10 mg PO DAILY [facility] Last Admin: 06/23/17 09:52 Dose: 10 mg Clonidine HCl (Catapres) 0.1 mg PO Q8H PRN PRN Reason: Systolic Blood Pressure Ergocalciferol (Drisdol 50,000 Intl Units Cap) 1 cap PO Q7D [facility] Stop: 08/10/17 12:46 Last Admin: 06/22/17 12:54 Dose: 1 cap Heparin Sodium (Porcine) (Heparin) 5,000 units SC Q12 REEMA PRN Reason: Protocol Last Admin: 06/23/17 10:03 Dose: 5,000 units Ciprofloxacin (Cipro 200mg/100ml D5w) 100 mls @ 67 mls/hr IVPB Q12 [facility] PRN Reason: Protocol Stop: 08/02/17 22:01 Last Admin: 06/23/17 09:52 Dose: 67 mls/hr Isosorbide Mononitrate (Imdur) 60 mg PO DAILY [facility] Last Admin: 06/23/17 09:52 Dose: 60 mg Metoprolol Tartrate (Lopressor) 50 mg PO BID [facility] Last Admin: 06/23/17 09:56 Dose: 50 mg Mupirocin (Bactroban Ointment) 0 gm TOP BID [facility] Last Admin: 06/23/17 10:28 Dose: Not Given Pantoprazole Sodium (Protonix Ec Tab) 40 mg PO 0600 [facility] Last Admin: 06/23/17 06:20 Dose: 40 mg Prednisone (Prednisone Tab) 30 mg PO DAILY [facility] Last Admin: 06/23/17 10:03 Dose: 30 mg Senna/Docusate Sodium (Senokot S 50 Mg-8.6 Mg) 1 tab PO BID [facility] Last Admin: 06/23/17 09:52 Dose: 1 tab Tamsulosin HCl (Flomax) 0.4 mg PO DAILY [facility] Last Admin: 06/23/17 09:52 Dose: 0.4 mg - Labs Labs: 06/23/17 10:30 06/23/17 10:30 PT 14.7 Seconds (9.9-11.8) H 06/13/17 17:33 INR 1.36 (0.93-1.08) H 06/13/17 17:33 APTT 26.6 Seconds (23.7-30.8) 06/19/17 05:10 - Constitutional Appears: Non-toxic, No Acute Distress, Chronically Ill - Head Exam Head Exam: ATRAUMATIC, NORMOCEPHALIC - Eye Exam Eye Exam: EOMI, PERRL Pupil Exam: NORMAL ACCOMODATION, PERRL - ENT Exam ENT Exam: Mucous Membranes Moist, Normal External Ear Exam, TM's Normal Bilaterally - Neck Exam Neck Exam: Full ROM, Normal Inspection - Respiratory Exam Respiratory Exam: Clear to Ausculation Bilateral, NORMAL BREATHING PATTERN. absent: Rales, Rhonchi, Wheezes - Cardiovascular Exam Cardiovascular Exam: REGULAR RHYTHM, RRR, +S1, +S2 - GI/Abdominal Exam GI & Abdominal Exam: Soft, Normal Bowel Sounds. absent: Distended, Tenderness - Extremities Exam Additional comments: +Heel protectors +Venous stasis skin changes B/L LE wrapped with curlex mild cellulitis of the bilateral lower extremities and chronic venous stasis. open ulcerations on the bilateral legs anteriorly. wounds are malodorous. now s/p debridement of the ulcerations. - Neurological Exam Neurological Exam: Alert, Awake, CN II-XII Intact, Oriented x3 - Psychiatric Exam Psychiatric exam: Normal Affect, Normal Mood - Skin Additional comments: As above. Assessment and Plan - Assessment and Plan (Free Text) Assessment: 87 yo male with AMS and lethargy. Etiology unclear. Broad spectrum coverage for now with Rocephin and Vancomycin treatment. Ignacio cultures. Imaging studies. Patient was intubated and ventilated but was extubated recently. Remains in ICU currently. He is more awake and alert now. Overall improving. Supportive care. Obtain procalcitonin... which was 0.48 which is normal. Follow up WBC and fever trend. Urine drug screen positive for Benzodiazepine. Respiratory failure. Renal insufficiency (acute or chronic?). Patient has a history of hypertension and systolic congestive heart failure. Patient improving and is mentally back to his normal state at this time. His only complaint is of bilateral lower leg pains. Went to OR Sunday morning for debridement of unhealthy tissue of the legs. No additional issues. Cultures showing Staph Aureus and Klebsiella. The patient started on Cipro IV today. He will need 10 days of treatment although it does not have to be all by IV and can be finished with PO Cipro. Thank you for allowing me to participate in the care of the patient, we will follow with you.
== END 2017-06-23 17:21 | DRG 981 ==
LOC: ED 17:22 → ERH 19:23 → CCU 20:49 → 5RSO 06-20 04:03
PROVIDERS: ADMIT Internal Medicine; ATTEND Hospitalist
PROC: 5A1945Z Respiratory Ventilation, 24-96 Consecutive Hours (ICD-10-PCS; 2017-06-13)
PROC: 0BH17EZ Insertion of Endotracheal Airway into Trachea, Via Natural or Artificial Opening (ICD-10-PCS; 2017-06-13)
PROC: 0JDN3ZZ Extraction of Right Lower Leg Subcutaneous Tissue and Fascia, Percutaneous Approach (ICD-10-PCS; principal; 2017-06-20 11:15)
DX: I21.4 Non-ST elevation (NSTEMI) myocardial infarction (principal); I63.9 Cerebral infarction, unspecified; J96.02 Acute respiratory failure with hypercapnia; G93.41 Metabolic encephalopathy; J18.9 Pneumonia, unspecified organism; I50.23 Acute on chronic systolic (congestive) heart failure; J44.0 Chronic obstructive pulmonary disease with (acute) lower respiratory infection; I13.0 Hypertensive heart and chronic kidney disease with heart failure and stage 1 through stage 4 chronic kidney disease, or unspecified chronic kidney disease; N17.9 Acute kidney failure, unspecified; E87.0 Hyperosmolality and hypernatremia; E87.4 Mixed disorder of acid-base balance; L03.115 Cellulitis of right lower limb; L03.116 Cellulitis of left lower limb; J44.1 Chronic obstructive pulmonary disease with (acute) exacerbation; L97.829 Non-pressure chronic ulcer of other part of left lower leg with unspecified severity; L97.819 Non-pressure chronic ulcer of other part of right lower leg with unspecified severity; N25.81 Secondary hyperparathyroidism of renal origin; I27.2 Other secondary pulmonary hypertension; E86.0 Dehydration; N18.3 Chronic kidney disease, stage 3 (moderate); M88.9 Osteitis deformans of unspecified bone; E87.5 Hyperkalemia; I73.9 Peripheral vascular disease, unspecified; F17.200 Nicotine dependence, unspecified, uncomplicated; J84.10 Pulmonary fibrosis, unspecified; N28.1 Cyst of kidney, acquired; R33.9 Retention of urine, unspecified; R29.729 NIHSS score 29; I08.3 Combined rheumatic disorders of mitral, aortic and tricuspid valves; R47.1 Dysarthria and anarthria; B95.62 Methicillin resistant Staphylococcus aureus infection as the cause of diseases classified elsewhere; B96.20 Unspecified Escherichia coli [E. coli] as the cause of diseases classified elsewhere; B96.1 Klebsiella pneumoniae [K. pneumoniae] as the cause of diseases classified elsewhere; E83.51 Hypocalcemia; E55.9 Vitamin D deficiency, unspecified; I25.10 Atherosclerotic heart disease of native coronary artery without angina pectoris; Z85.51 Personal history of malignant neoplasm of bladder

== ENCOUNTER 2017-06-23 17:21 | Inpatient (IN) | payer MEDICARE ==
[2017-06-23 18:16] VITALS: BMI 28.8
[2017-06-23] MEDS ORDERED: Albuterol-Ipratrop 3 mg / 0.5 (3 ml) UD IH PRN (18:16)
[2017-06-23] MEDS ORDERED: Pneumococcal 23-Valent Vaccine IM ONE (20:45)
[2017-06-23] MEDS: Albuterol-Ipratrop 3 mg / 0.5 (3 ml) UD IH SCH (20:57)
[2017-06-23] MEDS: Ciprofloxacin 200mg/100ml D5W 100 ML IVPB SCH (22:12)
[2017-06-24] MEDS: Albuterol-Ipratrop 3 mg / 0.5 (3 ml) UD IH SCH ×3 (03:08→13:13)
[2017-06-24] MEDS: Pantoprazole 40 mg EC Tab PO SCH (06:04)
--- NOTE | 2017-06-24 10:36 | CP.PCM.HP ---
<GENTRY CASEY - Last Filed: 06/24/17 11:23> History of Present Illness - History of Present Illness History of Present Illness: Gentry Casey PGY1 - Internal Medicine H&P CC: Deconditioning and weakness HPI: 87 yo M with PMH of COPD, CHF, HTN, DM, NSTEMI, and PAD originally presented to [facility] ED by EMS for unresponsvieness, pinpoint pupils, AMS. Patient was intubated in the ER for hypercapnic respiratory failure and transferred to ICU. 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 Patient was extubated on hospital day 3, when his respiratory status improved, but continued to have AMS. Patient's mental status improved the following day, and he was transferred out of the ICU. During his hospitalization, he also had surgery with podiatry for debridement of his RLE. He remained in his hospital pending clearance by pulmonology while continuing to taper steroids. Three days ago, he was noted to be azotemic and hyperkalemic, with uptrending sodium, so lasix was held and he was started on gentle free-water hydration by nephro. Today, he feels well, though is still complaining of constipation, last BM was 3 -4 days ago. He was started on Senna/Colace yesterday, and given a one time dose of lactulose. He has still not had a bowel movement, but has been passing some gas. Nurses also noted that he has been incontinent overnight, and on exam , he had a tense suprapubic region of his abdomen, so bladder scan was done which showed 750ml urine in the bladder, but he was not complaining of pain. Patient denies any CP, SOB, N/V/D, abdominal pain, F/C. He is awake, alert, and oriented to person, place and time. He is mentating well, and has returned to his mental status baseline. PMH: NSTEMI, CHF with LVEF 17%, COPD, chronic bronchitis, HTN, Paget's disease of bone, PAD, bladder tumor with urinary retention PSH: B/L arterial stent in legs, recent debridement of RLE FamHx: Nonctontributory SocHx: - Tobacco: Former smoker - ETOH: Denies - ID: Denies ALL: NKDA Meds: See MAR Constitutional: pt denies fever, chills, generalized weakness ENT: pt denies dysphagia, otalgia, hearing deficit, rhinorrhea Eyes: pt denies sudden loss of vision, diplopia, blurred vision MSK: pt denies muscle stiffness, joint pain, extremity cramping Cardio: pt denies sob, heart murmur, CP Pulm: pt denies cough, hemoptysis, wheeze GI: +Constipation pt denies loss of appetite, abdominal pain, melena, n/v/d : +Incontinence, fullness pt denies burning on urination, urinary frequency, hematuria, urinary urgency Neuro: pt denies paresis, paresthesia, dizziness, steele, numbness, tingling Derm: +Echymoses (healing), b/l LE ulceration pt denies nail changes Endo: pt denies intolerance to heat/cold, diaphoresis, night sweats, polydipsia Psych: pt denies anxiety, depression, mood changes Present on Admission - Present on Admission Any Indicators Present on Admission: No Past Patient History - Past Social History Smoking Status: Former Smoker - CARDIAC Hx Pacemaker: No - PULMONARY Hx Chronic Obstructive Pulmonary Disease (COPD): Yes - NEUROLOGICAL Hx Paralysis: No - HEENT Hx HEENT Problems: Yes Hx Deafness: Yes ([place]) Other/Comment: glasses - RENAL Hx Chronic Kidney Disease: No - ENDOCRINE/METABOLIC Hx Endocrine Disorders: No - HEMATOLOGICAL/ONCOLOGICAL Hx Blood Transfusions: No - INTEGUMENTARY Hx Dermatological Problems: No - MUSCULOSKELETAL/RHEUMATOLOGICAL Hx Falls: Yes - GASTROINTESTINAL Hx Gastrointestinal Disorders: Yes (CONSTIPATION,POOR APPETITE) - GENITOURINARY/GYNECOLOGICAL Hx Genitourinary Disorders: No Hx Reproductive Disorders: Yes (BPH) - PSYCHIATRIC Hx Emotional Abuse: No Hx Physical Abuse: No Hx Substance Use: No - SURGICAL HISTORY Hx Surgeries: Yes - ANESTHESIA Hx Anesthesia Reactions: No Hx Malignant Hyperthermia: No Meds Allergies/Adverse Reactions: Allergies Allergy/AdvReac Type Severity Reaction Status Date / Time No Known Allergies Allergy Verified 06/23/17 20:00 Physical Exam - Constitutional Appears: Non-toxic, No Acute Distress, Chronically Ill - Head Exam Head Exam: ATRAUMATIC, NORMOCEPHALIC - Eye Exam Eye Exam: EOMI, PERRL - ENT Exam ENT Exam: Mucous Membranes Moist - Neck Exam Neck exam: Negative for: Lymphadenopathy, Thyromegaly - Respiratory Exam Respiratory Exam: Clear to Auscultation Bilateral. absent: Rales, Rhonchi, Wheezes - Cardiovascular Exam Cardiovascular Exam: RRR, +S1, +S2 Additional comments: B/L UE 2+ to 3+ edema up to elbows B/L LE 2+ edema up to knees, though wrapped with eduardo-bands for compression, edema noted above dressings - GI/Abdominal Exam GI & Abdominal Exam: Distended, Firm, Normal Bowel Sounds. absent: Guarding, Rigid, Tenderness - Exam Exam: Bladder Distension - Extremities Exam Additional comments: B/L LE dressed with compressive eduardo-bands for chronic venous stasis ulcerations. Dressing CDI - Back Exam Back exam: absent: CVA tenderness (L), CVA tenderness (R) - Neurological Exam Neurological exam: Alert, Oriented x3 - Psychiatric Exam Psychiatric exam: Normal Affect, Normal Mood - Skin Additional comments: Diffuse ecchymoses in various stages of healing on b/l UE. No new ecchymoses. Results - Vital Signs Recent Vital Signs: Last Vital Signs Temp 98.3 F 06/24/17 06:00 Pulse 76 06/24/17 08:35 Resp 20 06/24/17 06:00 BP 161/92 H 06/24/17 08:35 Pulse Ox 97 06/24/17 06:00 - Labs Result Diagrams: 06/24/17 10:47 06/24/17 10:47 Assessment & Plan - Assessment and Plan (Free Text) Assessment: 87 yo M with PMH of COPD, CHF with LVEF 17%, Paget's disease, and HTN who initially presented with AMS and hypercapnic respiratory failure requiring intubation/mechanical ventilation. Remains on AvyCaz for b/l LE MRSA cellulitis. Now with azotemia, in the setting of CHF with diffuse edema and borderline fluid overload. Admitted to TCU for deconditioning and weakness Plan: 1. Deconditioning and weakness - Continue daily physical therapy 2. Acute Hypercapnic Respiratory Failure: Resolved -2/2 CHF exacerbation in setting of NSTEMI/demand ischemia -2/2 severe COPD, now s/p extubation a week ago -Switched to PO steroids, now on Prednisone 30 - tapering down slowly - Nebs Q6H tomer/Q2 prn, as per Pulm -Satting well on O2 NC, maintain SaO2 88-95%, avoid persistently elevated SaO2 to prevent suppression of respiratory drive in COPD pt -Heparin drip d/c'd >48hrs post SD, will continue with conservative management at this time, no new stress test. -Cardio (Santa), Neuro (Cindi Castro), and Pulm (Jayy) consulted, appreciate all recs 3. Altered Mental Status: Resolved -2/2 Hypercapnic resp failure vs Sepsis from LE cellulitis vs ACS -Head CT: small hypodense lacunar infarct within the left cerebellar lobe, considered to be subacute -UDS (+) benzos, no benzos listed in home medication charting -MRI showing chronic microvascular changes, MRA unremarkable -EEG completed, significant for diffuse slowing "drowsy". Was done when sedated. -Blood cx showing no growth x 5 days, urine cx no growth 4. MRSA cellulitis, b/l leg -Wound cxs: +MRSA, Right leg WCX: E.Coli, Staph. Aureus (Resistant to PCN but Oxa sensitive); Left leg WCX: Klebsella Oxytosa, Staph Aureus -Continue Vancomycin and Rocephin per ID -ID (Go) and Podiatry (Iftikhar) consulted, appreciate all recs -Off rocephin and vanc per ID, as C&S shows sensitivity to cipro. Switched to IV cipro for 10d course -Patient is s/p for debridement of RLE wound nonviable tissue with podiatry 5. NSTEMI -Troponins peaked at 1.16, plateued and then trended down -Continue conservative management, no stress test at this time per cardio. Previously on heparin drip, discontinued after 48hrs -Off heparin, platelet count trending back up again -Continue Metoprolol, Imdur, Statin, ASA, Plavix, lipitor -JASWINDER resolved, will restart Cozaar 6. Chronic venous stasis ulceration -B/L lower extremity wounds currently being managed by podiatry -Daily dressing changes and topical antibiotic application 7. Congestive Heart Failure (Systolic) -Last echo shows LVEF 17% -Will restart lasix 20mg daily today for fluid overloaded state -Strict I&O's -Daily weights -Cardio consulted, appreciate all recs 8. Acute Kidney Injury on CKD -Was off lasix for 4 days after acute elevation in creatinine level, improved slightly, though still azotemic. Will restart lasix to avoid decompensation of CHF and monitor CMP closely for any electrolyte abnormalities and kidney injury -monitor I&Os -Nephro (Ondina) consulted, appreciate all recs 9. Hypertension -continue Lopressor 50mg PO BID, Hydralazine 10mg Q6H PRN, Imdur 60mg PO QD -Pt hypertensive today, will restart home Cozaar 25 mg PO QD 10. H/o BPH, now with urinary retention -On home Flomax -Bladder scan showed 750 mL residual, though patient is not complaining of any pain. Nurses report incontinence overnight. -Ordered swanson placement -Consulted Urology (Tra), appreciate recs 11. Constipation -Last BM was 3-4 days ago, passing flatus -Started senna/colace yesterday, and given one dose of lactulose, but still no BM -Likely worsened by urinary retention. Will place swanson catheter in, and monitor. If no improvement, will consider giving one more dose of lactulose Ppx: Heparin SQ for DVT, Protonix for GI Patient seen, discussed, and reviewed with attending <Roxana Cannon - Last Filed: 06/24/17 18:55> Results - Vital Signs Recent Vital Signs: Last Vital Signs Temp 98.3 F 06/24/17 06:00 Pulse 68 06/24/17 18:01 Resp 20 06/24/17 06:00 BP 116/58 L 06/24/17 18:01 Pulse Ox 97 06/24/17 06:00 - Labs Result Diagrams: 06/24/17 10:47 06/24/17 10:47 Labs: Laboratory Results - last 24 hr 06/24/17 06/24/17 10:47 10:47 WBC 11.2 H RBC 4.17 Hgb 12.0 L Hct 38.1 L MCV 91.4 MCH 28.8 MCHC 31.5 RDW 17.1 H Plt Count 127 MPV 11.5 H Gran % 81.7 H Lymph % (Auto) 4.8 L Mer[place]ether % (Auto) 12.9 H Eos % (Auto) 0.6 L Baso % (Auto) 0.0 Gran # 9.10 H Lymph # 0.5 L [place]ether # 1.4 H Eos # 0.1 Baso # 0.00 Sodium 145 Potassium 4.4 Chloride 107 Carbon Dioxide 31 Anion Gap 11 BUN 63 H Creatinine 1.7 H Est GFR ( Amer) 47 Est GFR (Non-Af Amer) 38 Random Glucose 93 Calcium 8.1 L Total Bilirubin 1.1 AST 18 ALT 36 Alkaline Phosphatase 111 Total Protein 5.5 L Albumin 2.8 L Globulin 2.8 Albumin/Globulin Ratio 1.0 L Attending/Attestation - Attestation I have personally seen and examined this patient.: Yes I have fully participated in the care of the patient.: Yes I have reviewed all pertinent clinical information: Yes Notes (Text): 06/24/17 18:53 patient seen and examined at bedside. Admission labs, vitals and orders reviewed. He feels better and is eagerly participating in his PT today. Nursing reports of urinary retention on bladder scan and swanson's catheter had to be placed with good relief. Podiatry dressing change ongoing daily. Renal function improving and low dose lasix started today. Continue antibiotics, bronchodilators.Multi-speciality follow up ongoing. Agree with the plan of care as outlined by the resident.
[2017-06-24 10:51] LABS: EOS # 0.1 (0.0-0.7); EOS % 0.6 % (1.5-5.0); GRAN # 9.1 (1.4-6.5); GRAN % 81.7 % (50.0-68.0); HEMATOCRIT 38.1 % (42.0-52.0); LYMPH # 0.5 (1.2-3.4); LYMPH % 4.8 % (22.0-35.0); MEAN CELL VOLUME 91.4 fl (80.0-105.0); MEAN CORPUSCULAR HEMOGLOBIN 28.8 pg (25.0-35.0); MEAN CORPUSCULAR HGB CONC 31.5 g/dl (31.0-37.0); MEAN PLATELET VOLUME 11.5 fl (7.0-11.0); MONO # 1.4 (0.1-0.6); MONO % 12.9 % (1.0-6.0); RED CELL DISTRIBUTION WIDTH 17.1 % (11.5-14.5); WHITE BLOOD COUNT 11.2 10^3/ul (4.5-11.0)
[2017-06-24 11:00] LABS: BILIRUBIN,TOTAL 1.1 mg/dL (0.2-1.3); CALCIUM 8.1 mg/dL (8.4-10.5); POTASSIUM 4.4 mmol/L (3.6-5.0); TOTAL PROTEIN 5.5 g/dL (5.8-8.3)
[2017-06-24] MEDS: Ciprofloxacin 200mg/100ml D5W 100 ML IVPB SCH ×2 (11:13→21:02)
[2017-06-24] MEDS: Docusate-Senna 50 mg-8.6 mg Tab PO SCH ×2 (11:16→18:04)
--- NOTE | 2017-06-24 13:59 | CP.PCM.CON ---
<Radha Marmolejo - Last Filed: 06/24/17 21:26> History of Present Illness - History of Present Illness History of Present Illness: 87 year old male patient with COPD, CHF, HTN, DM, NSTEMI, and PAD seen at bedside today in TCU 4 days s/p right leg wound debridement. Patient is seen resting comfortably, slightly confused but in NAD. Pt appears more oriented today than usual and is in good spirits. Patient reports having continued pain to bilateral lower extremities but it does not bother him much. Patient states he has been practicing walking with physical therapy and feels that it is helping with his leg pain. Patient denies N/V/F/D/C/SOB/calf pain. No other pedal complaints at this time. Review of Systems - Review of Systems All systems: reviewed and no additional remarkable complaints except (per HPI) Past Patient History - Past Social History Smoking Status: Former Smoker - CARDIAC Hx Pacemaker: No - PULMONARY Hx Chronic Obstructive Pulmonary Disease (COPD): Yes - NEUROLOGICAL Hx Paralysis: No - HEENT Hx HEENT Problems: Yes Hx Deafness: Yes ([place]) Other/Comment: glasses - RENAL Hx Chronic Kidney Disease: No - ENDOCRINE/METABOLIC Hx Endocrine Disorders: No - HEMATOLOGICAL/ONCOLOGICAL Hx Blood Transfusions: No - INTEGUMENTARY Hx Dermatological Problems: No - MUSCULOSKELETAL/RHEUMATOLOGICAL Hx Falls: Yes - GASTROINTESTINAL Hx Gastrointestinal Disorders: Yes (CONSTIPATION,POOR APPETITE) - GENITOURINARY/GYNECOLOGICAL Hx Genitourinary Disorders: No Hx Reproductive Disorders: Yes (BPH) - PSYCHIATRIC Hx Emotional Abuse: No Hx Physical Abuse: No Hx Substance Use: No - SURGICAL HISTORY Hx Surgeries: Yes - ANESTHESIA Hx Anesthesia Reactions: No Hx Malignant Hyperthermia: No Meds Allergies/Adverse Reactions: Allergies Allergy/AdvReac Type Severity Reaction Status Date / Time No Known Allergies Allergy Verified 06/23/17 20:00 - Medications Medications: Current Medications Acetaminophen (Tylenol 325mg Tab) 650 mg PO Q6H PRN; Protocol PRN Reason: Pain, moderate (4-7) Albuterol/Ipratropium (Duoneb 3 Mg/0.5 Mg (3 Ml) Ud) 3 ml IH Q2H PRN; Protocol PRN Reason: Shortness of Breath Albuterol/Ipratropium (Duoneb 3 Mg/0.5 Mg (3 Ml) Ud) 3 ml IH [id number] REEMA PRN Reason: Protocol Last Admin: 06/24/17 13:13 Dose: 3 ml Amlodipine Besylate (Norvasc) 5 mg PO DAILY [facility] PRN Reason: Protocol Last Admin: 06/24/17 11:16 Dose: 5 mg Aspirin (Ecotrin) 81 mg PO 0800 [facility] PRN Reason: Protocol Last Admin: 06/24/17 08:35 Dose: 81 mg Atorvastatin Calcium (Lipitor) 10 mg PO DIN [facility] PRN Reason: Protocol Clonidine HCl (Catapres) 0.1 mg PO Q8 PRN PRN Reason: Systolic Blood Pressure Ergocalciferol (Drisdol 50,000 Intl Units Cap) 1 cap PO SAT [facility] PRN Reason: Protocol Furosemide (Lasix) 20 mg PO DAILY [facility] Last Admin: 06/24/17 12:34 Dose: 20 mg Heparin Sodium (Porcine) (Heparin) 5,000 units SC Q12 [facility] PRN Reason: Protocol Last Admin: 06/24/17 11:15 Dose: 5,000 units Ciprofloxacin (Cipro 200mg/100ml D5w) 100 mls @ 67 mls/hr IVPB Q12 [facility] PRN Reason: Protocol Last Admin: 06/24/17 11:13 Dose: 67 mls/hr Isosorbide Mononitrate (Imdur) 60 mg PO DAILY [facility] PRN Reason: Protocol Last Admin: 06/24/17 11:15 Dose: 60 mg Metoprolol Tartrate (Lopressor) 50 mg PO 0800,1800 [facility] PRN Reason: Protocol Last Admin: 06/24/17 08:35 Dose: 50 mg Mupirocin (Bactroban Ointment) 0 gm TOP BID [facility] PRN Reason: Protocol Last Admin: 06/24/17 11:12 Dose: 1 applic Pantoprazole Sodium (Protonix Ec Tab) 40 mg PO 0600 [facility] PRN Reason: Protocol Last Admin: 06/24/17 06:04 Dose: 40 mg Prednisone (Prednisone Tab) 30 mg PO DAILY [facility] PRN Reason: Protocol Last Admin: 06/24/17 11:15 Dose: 30 mg Senna/Docusate Sodium (Senokot S 50 Mg-8.6 Mg) 1 tab PO BID [facility] PRN Reason: Protocol Last Admin: 06/24/17 11:16 Dose: 1 tab Tamsulosin HCl (Flomax) 0.4 mg PO 1800 [facility] PRN Reason: Protocol Physical Exam - Constitutional Appears: Well, Non-toxic, No Acute Distress - Extremities Exam Additional comments: Bilateral lower extremity examination: Vasc: Palpable DP and PT pulses are noted 1/4 bilaterally. CFT < 3 seconds noted to all digits Derm: Right: Open ulcerations to anterior and lateral aspect of leg measuring 15cm x 5cm x 0.2cm with granular base. Mild serosanguinous drainage is noted. Decreasing erythema, no purulence, no malodor. Left: Open ulcerations to anterior aspect of leg measuring 11cm x 5cm x 0.2cm with a mixed fibrogranular base. Moderate serosanguinous drainage is noted. No malodor, no purulence. Mild to moderate eythema noted to wound periphery. - Neurological Exam Neurological exam: Alert, Oriented x3 - Psychiatric Exam Psychiatric exam: Normal Affect, Normal Mood Results - Vital Signs Recent Vital Signs: Last Vital Signs Temp 98.3 F 06/24/17 06:00 Pulse 55 L 06/24/17 11:16 Resp 20 06/24/17 06:00 BP 119/60 06/24/17 12:34 Pulse Ox 97 06/24/17 06:00 - Labs Result Diagrams: 06/24/17 10:47 06/24/17 10:47 Labs: Laboratory Results - last 24 hr 06/24/17 06/24/17 10:47 10:47 WBC 11.2 H RBC 4.17 Hgb 12.0 L Hct 38.1 L MCV 91.4 MCH 28.8 MCHC 31.5 RDW 17.1 H Plt Count 127 MPV 11.5 H Gran % 81.7 H Lymph % (Auto) 4.8 L [place] % (Auto) 12.9 H Eos % (Auto) 0.6 L Baso % (Auto) 0.0 Gran # 9.10 H Lymph # 0.5 L [place] # 1.4 H Eos # 0.1 Baso # 0.00 Sodium 145 Potassium 4.4 Chloride 107 Carbon Dioxide 31 Anion Gap 11 BUN 63 H Creatinine 1.7 H Est GFR ( Amer) 47 Est GFR (Non-Af Amer) 38 Random Glucose 93 Calcium 8.1 L Total Bilirubin 1.1 AST 18 ALT 36 Alkaline Phosphatase 111 Total Protein 5.5 L Albumin 2.8 L Globulin 2.8 Albumin/Globulin Ratio 1.0 L Assessment & Plan - Assessment and Plan (Free Text) Assessment: 87 yo male patient with venous stasis ulcerations to anterior aspect of bilateral legs (R>L) 4 days s/p right leg wound debridement Plan: Patient was seen and evaluated at bedside Discussed plan in detail with Dr. Buitrago Chart, labs and vitals reviewed - afebrile, WBC 11.2 Bilateral legs dressed with Bactroban, Adaptic, ABD and DSD Continue IV Cipro as per ID as patient is growing S. aureus and Klebsiella Podiatry will continue to follow in-house <Siri Buitrago - Last Filed: 06/29/17 13:27> Meds - Medications Medications: Current Medications Acetaminophen (Tylenol 325mg Tab) 650 mg PO Q6H PRN; Protocol PRN Reason: Pain, moderate (4-7) Last Admin: 06/29/17 08:05 Dose: 650 mg Albuterol/Ipratropium (Duoneb 3 Mg/0.5 Mg (3 Ml) Ud) 3 ml IH Q2H PRN; Protocol PRN Reason: Shortness of Breath Albuterol/Ipratropium (Duoneb 3 Mg/0.5 Mg (3 Ml) Ud) 3 ml IH [id number] REEMA PRN Reason: Protocol Last Admin: 06/29/17 13:21 Dose: 3 ml Aspirin (Ecotrin) 81 mg PO 0800 [facility] PRN Reason: Protocol Last Admin: 06/29/17 08:07 Dose: 81 mg Atorvastatin Calcium (Lipitor) 10 mg PO DIN REEMA PRN Reason: Protocol Last Admin: 06/28/17 18:07 Dose: 10 mg Clonidine HCl (Catapres) 0.1 mg PO Q8 PRN PRN Reason: Systolic Blood Pressure Ergocalciferol (Drisdol 50,000 Intl Units Cap) 1 cap PO SAT REEMA PRN Reason: Protocol Famotidine (Pepcid) 20 mg PO 1000,2200 [facility] Last Admin: 06/29/17 10:38 Dose: 20 mg Furosemide (Lasix) 40 mg PO QOTHERDAY [facility] Last Admin: 06/29/17 10:36 Dose: 40 mg Furosemide (Lasix) 20 mg PO QOTHERDAY [facility] Last Admin: 06/28/17 11:09 Dose: 20 mg Isosorbide Mononitrate (Imdur) 60 mg PO DAILY RE[facility] PRN Reason: Protocol Last Admin: 06/29/17 10:34 Dose: 60 mg Lactic Acid (Lac-Hydrin 12% Cream (140 G)) 0 ea TOP Q12 REEMA Last Admin: 06/29/17 11:44 Dose: 1 dose Metoprolol Tartrate (Lopressor) 50 mg PO 0800,1800 [facility] PRN Reason: Protocol Last Admin: 06/29/17 08:07 Dose: 50 mg Mupirocin (Bactroban Ointment) 0 gm TOP BID REEMA PRN Reason: Protocol Last Admin: 06/29/17 10:33 Dose: 1 applic Polyethylene Glycol (Miralax) 17 gm PO BID REEMA Last Admin: 06/29/17 10:36 Dose: 17 gm Prednisone (Prednisone Tab) 20 mg PO DAILY [facility] Last Admin: 06/29/17 10:38 Dose: 20 mg Senna/Docusate Sodium (Senokot S 50 Mg-8.6 Mg) 1 tab PO BID REEMA PRN Reason: Protocol Last Admin: 06/29/17 10:38 Dose: 1 tab Tamsulosin HCl (Flomax) 0.4 mg PO 1800 RE[facility] PRN Reason: Protocol Last Admin: 06/28/17 18:07 Dose: 0.4 mg Results - Vital Signs Recent Vital Signs: Last Vital Signs Temp 98.5 F 06/29/17 10:00 Pulse 61 06/29/17 10:00 Resp 20 06/29/17 10:00 BP 132/75 06/29/17 10:36 Pulse Ox 99 06/28/17 16:00 - Labs Result Diagrams: 06/28/17 07:50 06/28/17 07:50 Attending/Attestation - Attestation I have personally seen and examined this patient.: Yes I have fully participated in the care of the patient.: Yes I have reviewed all pertinent clinical information: Yes
--- NOTE | 2017-06-24 17:40 | CP.PCM.CON ---
History of Present Illness - History of Present Illness History of Present Illness: Infectious Disease Consultation: June 24, 2017 87 yo male brought in initially for lethargy and AMS. The patient has an extensive medical history that includes COPD, CHF last known EF of 30-35% in 2015, HTN, Paget's disease and PAD. The patient required intubation and ventilation once arriving in [place]. He was extubated several days later. Remains extubated and feeling better. He is much more awake and alert today. No major complaints. He does complain of bilateral lower extremity pain. 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 Multiple chronic medical issues. No major specific complaints at this time. He needed physical therapy. Currently on the med-surg floor. He is growing Klebsiella and Staph Aureus sensitive to Cipro. PMHx: COPD, CHF last known EF of 30-35% in 08/2016, HTN, Paget's disease, chronic bronchitis, bladder tumor, urinary retention, and PAD PSHx: not known to me at this time Allergies: NKDA Social Hx: former tobacco user, no EtOH, no illicit drugs to my knowledge Active Medications Acetaminophen (Tylenol 325mg Tab) 650 mg PO Q6H PRN; Protocol PRN Reason: Pain, moderate (4-7) Albuterol/Ipratropium (Duoneb 3 Mg/0.5 Mg (3 Ml) Ud) 3 ml IH Q2H PRN; Protocol PRN Reason: Shortness of Breath Albuterol/Ipratropium (Duoneb 3 Mg/0.5 Mg (3 Ml) Ud) 3 ml IH [id number] REEMA PRN Reason: Protocol Last Admin: 06/24/17 13:13 Dose: 3 ml Amlodipine Besylate (Norvasc) 5 mg PO DAILY RE[facility] PRN Reason: Protocol Last Admin: 06/24/17 11:16 Dose: 5 mg Aspirin (Ecotrin) 81 mg PO 0800 [facility] PRN Reason: Protocol Last Admin: 06/24/17 08:35 Dose: 81 mg Atorvastatin Calcium (Lipitor) 10 mg PO DIN [facility] PRN Reason: Protocol Clonidine HCl (Catapres) 0.1 mg PO Q8 PRN PRN Reason: Systolic Blood Pressure Ergocalciferol (Drisdol 50,000 Intl Units Cap) 1 cap PO SAT REEMA PRN Reason: Protocol Furosemide (Lasix) 20 mg PO DAILY [facility] Last Admin: 06/24/17 12:34 Dose: 20 mg Heparin Sodium (Porcine) (Heparin) 5,000 units SC Q12 RE[facility] PRN Reason: Protocol Last Admin: 06/24/17 11:15 Dose: 5,000 units Ciprofloxacin (Cipro 200mg/100ml D5w) 100 mls @ 67 mls/hr IVPB Q12 RE[facility] PRN Reason: Protocol Last Admin: 06/24/17 11:13 Dose: 67 mls/hr Isosorbide Mononitrate (Imdur) 60 mg PO DAILY [facility] PRN Reason: Protocol Last Admin: 06/24/17 11:15 Dose: 60 mg Metoprolol Tartrate (Lopressor) 50 mg PO 0800,1800 [facility] PRN Reason: Protocol Last Admin: 06/24/17 08:35 Dose: 50 mg Mupirocin (Bactroban Ointment) 0 gm TOP BID [facility] PRN Reason: Protocol Last Admin: 06/24/17 11:12 Dose: 1 applic Pantoprazole Sodium (Protonix Ec Tab) 40 mg PO 0600 [facility] PRN Reason: Protocol Last Admin: 06/24/17 06:04 Dose: 40 mg Prednisone (Prednisone Tab) 30 mg PO DAILY [facility] PRN Reason: Protocol Last Admin: 06/24/17 11:15 Dose: 30 mg Senna/Docusate Sodium (Senokot S 50 Mg-8.6 Mg) 1 tab PO BID [facility] PRN Reason: Protocol Last Admin: 06/24/17 11:16 Dose: 1 tab Tamsulosin HCl (Flomax) 0.4 mg PO 1800 [facility] PRN Reason: Protocol Family Hx: none given ROS: As above Past Patient History - Past Social History Smoking Status: Former Smoker - CARDIAC Hx Pacemaker: No - PULMONARY Hx Chronic Obstructive Pulmonary Disease (COPD): Yes - NEUROLOGICAL Hx Paralysis: No - HEENT Hx HEENT Problems: Yes Hx Deafness: Yes ([place]) Other/Comment: glasses - RENAL Hx Chronic Kidney Disease: No - ENDOCRINE/METABOLIC Hx Endocrine Disorders: No - HEMATOLOGICAL/ONCOLOGICAL Hx Blood Transfusions: No - INTEGUMENTARY Hx Dermatological Problems: No - MUSCULOSKELETAL/RHEUMATOLOGICAL Hx Falls: Yes - GASTROINTESTINAL Hx Gastrointestinal Disorders: Yes (CONSTIPATION,POOR APPETITE) - GENITOURINARY/GYNECOLOGICAL Hx Genitourinary Disorders: No Hx Reproductive Disorders: Yes (BPH) - PSYCHIATRIC Hx Emotional Abuse: No Hx Physical Abuse: No Hx Substance Use: No - SURGICAL HISTORY Hx Surgeries: Yes - ANESTHESIA Hx Anesthesia Reactions: No Hx Malignant Hyperthermia: No Meds Allergies/Adverse Reactions: Allergies Allergy/AdvReac Type Severity Reaction Status Date / Time No Known Allergies Allergy Verified 06/23/17 20:00 - Medications Medications: Current Medications Acetaminophen (Tylenol 325mg Tab) 650 mg PO Q6H PRN; Protocol PRN Reason: Pain, moderate (4-7) Albuterol/Ipratropium (Duoneb 3 Mg/0.5 Mg (3 Ml) Ud) 3 ml IH Q2H PRN; Protocol PRN Reason: Shortness of Breath Albuterol/Ipratropium (Duoneb 3 Mg/0.5 Mg (3 Ml) Ud) 3 ml IH [id number] REEMA PRN Reason: Protocol Last Admin: 06/24/17 13:13 Dose: 3 ml Amlodipine Besylate (Norvasc) 5 mg PO DAILY [facility] PRN Reason: Protocol Last Admin: 06/24/17 11:16 Dose: 5 mg Aspirin (Ecotrin) 81 mg PO 0800 [facility] PRN Reason: Protocol Last Admin: 06/24/17 08:35 Dose: 81 mg Atorvastatin Calcium (Lipitor) 10 mg PO DIN [facility] PRN Reason: Protocol Clonidine HCl (Catapres) 0.1 mg PO Q8 PRN PRN Reason: Systolic Blood Pressure Ergocalciferol (Drisdol 50,000 Intl Units Cap) 1 cap PO SAT [facility] PRN Reason: Protocol Furosemide (Lasix) 20 mg PO DAILY [facility] Last Admin: 06/24/17 12:34 Dose: 20 mg Heparin Sodium (Porcine) (Heparin) 5,000 units SC Q12 [facility] PRN Reason: Protocol Last Admin: 06/24/17 11:15 Dose: 5,000 units Ciprofloxacin (Cipro 200mg/100ml D5w) 100 mls @ 67 mls/hr IVPB Q12 [facility] PRN Reason: Protocol Last Admin: 06/24/17 11:13 Dose: 67 mls/hr Isosorbide Mononitrate (Imdur) 60 mg PO DAILY [facility] PRN Reason: Protocol Last Admin: 06/24/17 11:15 Dose: 60 mg Metoprolol Tartrate (Lopressor) 50 mg PO 0800,1800 [facility] PRN Reason: Protocol Last Admin: 06/24/17 08:35 Dose: 50 mg Mupirocin (Bactroban Ointment) 0 gm TOP BID [facility] PRN Reason: Protocol Last Admin: 06/24/17 11:12 Dose: 1 applic Pantoprazole Sodium (Protonix Ec Tab) 40 mg PO 0600 [facility] PRN Reason: Protocol Last Admin: 06/24/17 06:04 Dose: 40 mg Prednisone (Prednisone Tab) 30 mg PO DAILY [facility] PRN Reason: Protocol Last Admin: 06/24/17 11:15 Dose: 30 mg Senna/Docusate Sodium (Senokot S 50 Mg-8.6 Mg) 1 tab PO BID [facility] PRN Reason: Protocol Last Admin: 06/24/17 11:16 Dose: 1 tab Tamsulosin HCl (Flomax) 0.4 mg PO 1800 [facility] PRN Reason: Protocol Physical Exam - Constitutional Appears: Non-toxic, No Acute Distress, Chronically Ill - Head Exam Head Exam: ATRAUMATIC, NORMOCEPHALIC - Eye Exam Eye Exam: EOMI, PERRL Pupil Exam: NORMAL ACCOMODATION, PERRL - ENT Exam ENT Exam: Mucous Membranes Moist, Normal External Ear Exam, TM's Normal Bilaterally - Neck Exam Neck exam: Positive for: Full Rom, Normal Inspection - Respiratory Exam Respiratory Exam: Clear to Auscultation Bilateral, NORMAL BREATHING PATTERN. absent: Rales, Rhonchi, Wheezes - Cardiovascular Exam Cardiovascular Exam: REGULAR RHYTHM, RRR, +S1, +S2 - GI/Abdominal Exam GI & Abdominal Exam: Normal Bowel Sounds, Soft. absent: Distended, Tenderness - Extremities Exam Additional comments: +Heel protectors +Venous stasis skin changes B/L LE wrapped with curlex mild cellulitis of the bilateral lower extremities and chronic venous stasis. open ulcerations on the bilateral legs anteriorly. wounds are malodorous. now s/p debridement of the ulcerations. - Neurological Exam Neurological exam: Alert, CN II-XII Intact, Oriented x3 - Psychiatric Exam Psychiatric exam: Normal Affect, Normal Mood - Skin Additional comments: As above. Results - Vital Signs Recent Vital Signs: Last Vital Signs Temp 98.3 F 06/24/17 06:00 Pulse 55 L 06/24/17 11:16 Resp 20 06/24/17 06:00 BP 119/60 06/24/17 12:34 Pulse Ox 97 06/24/17 06:00 - Labs Result Diagrams: 06/24/17 10:47 06/24/17 10:47 Labs: Laboratory Results - last 24 hr 06/24/17 06/24/17 10:47 10:47 WBC 11.2 H RBC 4.17 Hgb 12.0 L Hct 38.1 L MCV 91.4 MCH 28.8 MCHC 31.5 RDW 17.1 H Plt Count 127 MPV 11.5 H Gran % 81.7 H Lymph % (Auto) 4.8 L [place] % (Auto) 12.9 H Eos % (Auto) 0.6 L Baso % (Auto) 0.0 Gran # 9.10 H Lymph # 0.5 L [place] # 1.4 H Eos # 0.1 Baso # 0.00 Sodium 145 Potassium 4.4 Chloride 107 Carbon Dioxide 31 Anion Gap 11 BUN 63 H Creatinine 1.7 H Est GFR ( Amer) 47 Est GFR (Non-Af Amer) 38 Random Glucose 93 Calcium 8.1 L Total Bilirubin 1.1 AST 18 ALT 36 Alkaline Phosphatase 111 Total Protein 5.5 L Albumin 2.8 L Globulin 2.8 Albumin/Globulin Ratio 1.0 L Assessment & Plan - Assessment and Plan (Free Text) Assessment: 87 yo male with AMS and lethargy. Etiology unclear. Broad spectrum coverage initially with Rocephin and Vancomycin treatment. Ignacio cultures. Imaging studies. Patient was intubated and ventilated but was extubated several days later. Overall improving. Supportive care. Obtain procalcitonin... which was 0.48 which is normal. Follow up WBC and fever trend. Urine drug screen positive for Benzodiazepine. Respiratory failure. Renal insufficiency (acute or chronic?). Patient has a history of hypertension and systolic congestive heart failure. Patient improving and is mentally back to his normal state at this time. His only complaint is of bilateral lower leg pains. Went to OR Sunday morning for debridement of unhealthy tissue of the legs. No additional issues. Cultures showing Staph Aureus and Klebsiella. The patient started on Cipro IV today. He will need 10 days of treatment although it does not have to be all by IV and can be finished with PO Cipro. He has been otherwise stable. Thank you for allowing me to participate in the care of the patient, we will follow with you.
--- NOTE | 2017-06-24 17:43 | CON ---
DATE: 06/24/2017 CHIEF COMPLAINT: Generalized weakness and altered mental status. HISTORY OF PRESENT ILLNESS: This is an 87-year-old man who we saw on the medical site with past medical history of CHF, COPD, hypertension, dyslipidemia, type 2 diabetes mellitus, NSTEMI, peripheral arterial disease, presented initially to the [facility], found unresponsive, pinpoint pupils, altered mental status. He was intubated in the ER for hypercapnic respiratory failure, transferred to ICU which was monitored and eventually was extubated. The patient was noticed to have an NSTEMI and COPD exacerbation as well as infected chronic venous stasis ulcerations on the bilateral lower extremities which were likely in combination the cause of his altered mental status. He was actually extubated and transferred out of the ICU and underwent surgery with Podiatry for debridement of his right lower extremity. He remained in the hospital for tapering steroids for his underlying COPD exacerbation and it was noted that he was azotemic and hyperkalemic with up trending sodium, so his Lasix was eventually held and gentle free water hydration was given by nephrology. ____ was consulted for altered mental status. At that time, we felt like his altered mental status was secondary to underlying metabolic encephalopathy superimposed on lower extremity cellulitis and growing E. coli as well as metabolic derangements. Currently, he is sitting up in the bed, can rest without any difficulty, following simple commands, moving all extremities. PAST MEDICAL HISTORY: NSTEMI, CHF with left ventricular ejection fraction of 17%, COPD, chronic bronchitis, hypertension, Paget's disease of the bone, peripheral arterial disease, bladder tumor, urinary retention. PAST SURGICAL HISTORY: Bilateral arterial stents in the legs, recent debridement of the right lower extremity. FAMILY HISTORY: Noncontributory. SOCIAL HISTORY: Former smoker. No illicit drug use, smoking, or EtOH abuse. ALLERGIES: NO KNOWN DRUG ALLERGIES. REVIEW OF SYSTEMS: A 14-point review of systems is negative except per the HPI. PHYSICAL EXAMINATION VITAL SIGNS: Temperature 98.3, pulse rate 76, blood pressure 119/60, respiratory rate of 20, oxygen saturation 97% via room air. GENERAL: The patient is sitting up in bed in no acute distress. HEENT: Head is atraumatic and normocephalic. PERRLA. Extraocular muscles intact. NECK: Supple. No JVD. No adenopathy noted. LUNGS: Slightly decreased breath sounds bilaterally. ABDOMEN: Soft, nontender, nondistended. Bowel sounds are present. EXTREMITIES: Ecchymosis on both lower extremities with ulcerations. NEUROLOGIC: The patient is alert, oriented to person, place, month, and year. Speech is fluent without any errors. Attention span and thought process is slow. Recall after 5 minutes is 0/3. Cranial nerves II through XII are intact. Motor exam: Slight increased tone throughout, moves all extremities equally. No pronator drift seen. Sensory exam: Decreased light touch and pinprick up to the calves bilaterally. Decreased vibration of the toes. DTRs are 2+ throughout, 1 at the knees and absent at the ankles. Coordination: [id number] intact. Gait is deferred for now. LABORATORY DATA: Sodium is 145, potassium 4.4, chloride at 107, carbon dioxide 31, BUN of 63, creatinine 1.7, random glucose of 93. ASSESSMENT AND PLAN: This is an 86-year-old man with past medical history of chronic obstructive pulmonary disease, congestive heart failure, hypertension, diabetes type 2, non-ST elevation myocardial infarction, peripheral arterial disease, who presented to the hospital initially for unresponsiveness, pinpoint pupils, altered mental status, found to have lower extremity ulcerations and infection with Escherichia coli as well as had an underlying chronic obstructive pulmonary disease exacerbation with metabolic derangements and was consulted initially for his altered mental status. His altered mental status was further stabilized at the hospital and he is now currently in transitional care unit for undergoing physical and occupational therapy for underlying deconditioned state and generalized weakness. His altered mental status was initially secondary to metabolic encephalopathy superimposed on underlying infection of his lower extremity ulcerations and growing E. coli. At this time, recommend: 1. Aspirin 81 mg, Plavix 75 mg, Lipitor 10 mg p.o. daily for stroke prevention and given his history of peripheral arterial disease. 2. Avoid sedative meds. 3. Avoid nighttime interruptions. 4. Frequent orientation throughout the day. His EEG was consistent with bilateral cerebral dysfunction. There was no evidence of any seizure-like activity. 5. Monitor his electrolytes and correct accordingly. 6. Continue with PT and OT management for his underlying deconditioned state and continue current present medical management. Thank you for this consult. Shakeel Castro MD
[2017-06-25] MEDS: Pantoprazole 40 mg EC Tab PO SCH (06:12)
[2017-06-25] MEDS: Albuterol-Ipratrop 3 mg / 0.5 (3 ml) UD IH SCH ×3 (07:09→20:16)
[2017-06-25 07:24] LABS: EOS # 0.1 (0.0-0.7); EOS % 0.6 % (1.5-5.0); GRAN # 6.62 (1.4-6.5); GRAN % 81.5 % (50.0-68.0); HEMATOCRIT 33.7 % (42.0-52.0); LYMPH # 0.8 (1.2-3.4); LYMPH % 9.7 % (22.0-35.0); MEAN CELL VOLUME 90.3 fl (80.0-105.0); MEAN CORPUSCULAR HEMOGLOBIN 28.4 pg (25.0-35.0); MEAN CORPUSCULAR HGB CONC 31.5 g/dl (31.0-37.0); MEAN PLATELET VOLUME 11.5 fl (7.0-11.0); MONO # 0.7 (0.1-0.6); MONO % 8.2 % (1.0-6.0); WHITE BLOOD COUNT 8.1 10^3/ul (4.5-11.0)
[2017-06-25 07:39] LABS: ALB/GLOB RATIO 0.9 (1.1-1.8); ALKALINE PHOSPHATASE 112 U/L (38-126); ALT/SGPT 39 U/L (7-56); AST/SGOT 33 U/L (17-59); BILIRUBIN,TOTAL 1.2 mg/dL (0.2-1.3); BLOOD UREA NITROGEN 53 mg/dL (7-21); CALCIUM 7.9 mg/dL (8.4-10.5); CARBON DIOXIDE 34 mmol/L (21-33); CHLORIDE 106 mmol/L (95-110); GFR AFRICAN-AMERICAN > 60; GLUCOSE,RANDOM 87 mg/dL (70-110); POTASSIUM 4.2 mmol/L (3.6-5.0); SODIUM 144 mmol/L (132-148); TOTAL PROTEIN 5.3 g/dL (5.8-8.3)
[2017-06-25] MEDS ORDERED: Magnesium Citrate Oral SOL (300 ml) PO ONE (09:51)
[2017-06-25] MEDS: Ciprofloxacin 200mg/100ml D5W 100 ML IVPB SCH ×2 (10:18→21:03)
[2017-06-25] MEDS: POLYETHYLENE GLYCOL 3350 17 GM/Dose PACKET PO SCH ×2 (10:22→17:33)
[2017-06-25] MEDS: Docusate-Senna 50 mg-8.6 mg Tab PO SCH ×2 (10:23→17:33)
--- NOTE | 2017-06-25 11:20 | CP.PCM.PN ---
<Radha Marmolejo - Last Filed: 06/25/17 11:30> Subjective - Date & Time of Evaluation Date of Evaluation: 06/25/17 Time of Evaluation: 11:18 - Subjective Subjective: 87 y/o male seen at bedside today in TCU with attending Dr. Buitrago 5 days s/p right leg wound debridement. Patient is seen resting comfortably in bed and is in good spirits. Patient is noticing improvements in his mobility with physical therapy and is not experiencing significant pain at this time. Patient denies N/ V/F/D/C/SOB/calf pain. No other pedal complaints at this time. Objective - Vital Signs/Intake and Output Vital Signs (last 24 hours): Temp Pulse Resp BP Pulse Ox 98.3 F 62 18 126/65 96 06/25/17 09:43 06/25/17 10:22 06/25/17 09:43 06/25/17 10:22 06/25/17 09:43 Intake and Output: 06/25/17 06/25/17 06:59 18:59 Intake Total 300 Output Total 1200 Balance -900 - Medications Medications: Current Medications Acetaminophen (Tylenol 325mg Tab) 650 mg PO Q6H PRN; Protocol PRN Reason: Pain, moderate (4-7) Last Admin: 06/25/17 02:02 Dose: 650 mg Albuterol/Ipratropium (Duoneb 3 Mg/0.5 Mg (3 Ml) Ud) 3 ml IH Q2H PRN; Protocol PRN Reason: Shortness of Breath Albuterol/Ipratropium (Duoneb 3 Mg/0.5 Mg (3 Ml) Ud) 3 ml IH [id number] [facility] PRN Reason: Protocol Last Admin: 06/25/17 07:09 Dose: 3 ml Aspirin (Ecotrin) 81 mg PO 0800 [facility] PRN Reason: Protocol Last Admin: 06/25/17 08:26 Dose: 81 mg Atorvastatin Calcium (Lipitor) 10 mg PO DIN [facility] PRN Reason: Protocol Last Admin: 06/24/17 18:01 Dose: 10 mg Clonidine HCl (Catapres) 0.1 mg PO Q8 PRN PRN Reason: Systolic Blood Pressure Ergocalciferol (Drisdol 50,000 Intl Units Cap) 1 cap PO SAT [facility] PRN Reason: Protocol Famotidine (Pepcid) 20 mg PO 1000,2200 [facility] Furosemide (Lasix) 20 mg PO DAILY [facility] Last Admin: 06/25/17 10:21 Dose: 20 mg Heparin Sodium (Porcine) (Heparin) 5,000 units SC Q12 [facility] PRN Reason: Protocol Last Admin: 06/25/17 10:21 Dose: 5,000 units Ciprofloxacin (Cipro 200mg/100ml D5w) 100 mls @ 67 mls/hr IVPB Q12 [facility] PRN Reason: Protocol Last Admin: 06/25/17 10:18 Dose: 67 mls/hr Isosorbide Mononitrate (Imdur) 60 mg PO DAILY [facility] PRN Reason: Protocol Last Admin: 06/25/17 10:21 Dose: 60 mg Lactic Acid (Lac-Hydrin 12% Cream (140 G)) 0 ea TOP Q12 [facility] Metoprolol Tartrate (Lopressor) 50 mg PO 0800,1800 [facility] PRN Reason: Protocol Last Admin: 06/25/17 08:26 Dose: 50 mg Mupirocin (Bactroban Ointment) 0 gm TOP BID [facility] PRN Reason: Protocol Last Admin: 06/25/17 10:18 Dose: 1 applic Polyethylene Glycol (Miralax) 17 gm PO BID [facility] Last Admin: 06/25/17 10:22 Dose: 17 gm Prednisone (Prednisone Tab) 30 mg PO DAILY [facility] PRN Reason: Protocol Last Admin: 06/25/17 10:23 Dose: 30 mg Senna/Docusate Sodium (Senokot S 50 Mg-8.6 Mg) 1 tab PO BID [facility] PRN Reason: Protocol Last Admin: 06/25/17 10:23 Dose: 1 tab Tamsulosin HCl (Flomax) 0.4 mg PO 1800 [facility] PRN Reason: Protocol Last Admin: 06/24/17 18:04 Dose: 0.4 mg - Labs Labs: 06/25/17 07:10 06/25/17 07:10 - Constitutional Appears: Well, Non-toxic, No Acute Distress - Extremities Exam Additional comments: Bilateral lower extremity examination: Vasc: Palpable DP and PT pulses are noted 1/4 bilaterally. CFT < 3 seconds noted to all digits Derm: Right: Open ulcerations to anterior and lateral aspect of leg measuring 10cm x 4cm x 0.2cm with granular base. Minimal serosanguinous drainage is noted. Decreasing erythema, no purulence, no malodor. Left: Open ulcerations to anterior aspect of leg measuring 9cm x 4cm x 0.2cm with a mixed fibrogranular base. Mild serosanguinous drainage is noted. No malodor, no purulence. Mild erythema noted to wound periphery. - Neurological Exam Neurological Exam: Alert, Awake, Oriented x3 - Psychiatric Exam Psychiatric exam: Normal Affect, Normal Mood Assessment and Plan - Assessment and Plan (Free Text) Assessment: 87 yo male patient with venous stasis ulcerations to anterior aspect of bilateral legs (R>L) 5 days s/p right leg wound debridement Plan: Patient was seen and evaluated at bedside with attending Dr. Buitrago Chart, labs and vitals reviewed - afebrile, WBC WNL at 8.1 Bilateral legs dressed with Bactroban, Adaptic and DSD Applied Tubigrip stockings to B/L lower extremities - please remove at nighttime before bed and reapply in AM Lac Hydrin to be applied to humble wound areas on bilateral legs BID Continue IV Cipro as per ID as patient is growing S. aureus and Klebsiella Podiatry will continue to follow in-house <Siri Buitrago - Last Filed: 06/29/17 13:27> Objective - Vital Signs/Intake and Output Vital Signs (last 24 hours): Temp Pulse Resp BP Pulse Ox 98.5 F 61 20 132/75 99 06/29/17 10:00 06/29/17 10:00 06/29/17 10:00 06/29/17 10:36 06/28/17 16:00 Intake and Output: 06/29/17 06/29/17 06:59 18:59 Intake Total 420 Output Total 1475 Balance -1055 - Medications Medications: Current Medications Acetaminophen (Tylenol 325mg Tab) 650 mg PO Q6H PRN; Protocol PRN Reason: Pain, moderate (4-7) Last Admin: 06/29/17 08:05 Dose: 650 mg Albuterol/Ipratropium (Duoneb 3 Mg/0.5 Mg (3 Ml) Ud) 3 ml IH Q2H PRN; Protocol PRN Reason: Shortness of Breath Albuterol/Ipratropium (Duoneb 3 Mg/0.5 Mg (3 Ml) Ud) 3 ml IH [id number] [facility] PRN Reason: Protocol Last Admin: 06/29/17 13:21 Dose: 3 ml Aspirin (Ecotrin) 81 mg PO 0800 [facility] PRN Reason: Protocol Last Admin: 06/29/17 08:07 Dose: 81 mg Atorvastatin Calcium (Lipitor) 10 mg PO DIN [facility] PRN Reason: Protocol Last Admin: 06/28/17 18:07 Dose: 10 mg Clonidine HCl (Catapres) 0.1 mg PO Q8 PRN PRN Reason: Systolic Blood Pressure Ergocalciferol (Drisdol 50,000 Intl Units Cap) 1 cap PO SAT [facility] PRN Reason: Protocol Famotidine (Pepcid) 20 mg PO 1000,2200 [facility] Last Admin: 06/29/17 10:38 Dose: 20 mg Furosemide (Lasix) 40 mg PO QOTHERDAY [facility] Last Admin: 06/29/17 10:36 Dose: 40 mg Furosemide (Lasix) 20 mg PO QOTHERDAY [facility] Last Admin: 06/28/17 11:09 Dose: 20 mg Isosorbide Mononitrate (Imdur) 60 mg PO DAILY [facility] PRN Reason: Protocol Last Admin: 06/29/17 10:34 Dose: 60 mg Lactic Acid (Lac-Hydrin 12% Cream (140 G)) 0 ea TOP Q12 [facility] Last Admin: 06/29/17 11:44 Dose: 1 dose Metoprolol Tartrate (Lopressor) 50 mg PO 0800,1800 [facility] PRN Reason: Protocol Last Admin: 06/29/17 08:07 Dose: 50 mg Mupirocin (Bactroban Ointment) 0 gm TOP BID [facility] PRN Reason: Protocol Last Admin: 06/29/17 10:33 Dose: 1 applic Polyethylene Glycol (Miralax) 17 gm PO BID [facility] Last Admin: 06/29/17 10:36 Dose: 17 gm Prednisone (Prednisone Tab) 20 mg PO DAILY [facility] Last Admin: 06/29/17 10:38 Dose: 20 mg Senna/Docusate Sodium (Senokot S 50 Mg-8.6 Mg) 1 tab PO BID [facility] PRN Reason: Protocol Last Admin: 06/29/17 10:38 Dose: 1 tab Tamsulosin HCl (Flomax) 0.4 mg PO 1800 [facility] PRN Reason: Protocol Last Admin: 06/28/17 18:07 Dose: 0.4 mg - Labs Labs: 06/28/17 07:50 06/28/17 07:50 Attending/Attestation - Attestation I have personally seen and examined this patient.: Yes I have fully participated in the care of the patient.: Yes I have reviewed all pertinent clinical information, including history, physical exam and plan: Yes
--- NOTE | 2017-06-25 13:23 | PN ---
DATE: 06/25/2017 SUBJECTIVE: The patient is seen lying in bed on transitional care unit. He states he is comfortable. He continuous to have his leg wounds dressed and wrap daily. His edema has improved. He denies any chest pain or dyspnea at rest. CURRENT MEDICATIONS: Include Catapres as needed, ciprofloxacin, DuoNeb inhaler, aspirin, Flomax, Imdur 60 mg daily, Lasix 20 mg daily, Lipitor 10 mg daily, metoprolol 50 mg b.i.d., Norvasc 5 mg daily, prednisone 30 mg daily, Protonix 40 mg daily. Of note, a Wong catheter was placed yesterday for apparent urinary retention. PHYSICAL EXAMINATION: GENERAL: He is an elderly man who appears comfortable at rest. VITAL SIGNS: His blood pressure is 136/60 with a pulse of 60, respirations are 16, he is afebrile. HEENT: No JVD. CHEST: Bilateral scattered rhonchi. HEART: PMI displaced laterally with soft tones noted and systolic murmur in the lower left sternal border. ABDOMEN: Soft, nontender with bowel sounds. EXTREMITIES: Both lower extremities were wrapped. 1+edema is present. DIAGNOSTIC DATA: Potassium 4.2, BUN and creatinine 53 and 1.3. Hemoglobin and hematocrit 10.6 and 33.7 with the white count of 8.1, and platelets count 120,000. IMPRESSION: 1. Recent respiratory failure, clinically improved. 2. Advanced chronic obstructive pulmonary disease. 3. Chronic congestive heart failure, predominantly systolic, compensated at present. 4. Known coronary artery disease, status post remote myocardial infarction, stable at present. 5. Urinary retention. 6. Prerenal azotemia. 7. Chronic venous stasis ulcerations with superficial infection. RECOMMENDATIONS: His current cardiac medications will be continued. Maintenances of mildly prerenal status advised to avoid decompensating congestive heart failure, conservative management of his coronary artery disease is planned at this time. We will be happy to follow along as needed. Seth Gomez MD
--- NOTE | 2017-06-25 13:28 | CON ---
CHIEF COMPLAINT: Urinary retention. HISTORY OF PRESENT ILLNESS: This is an 87-year-old man who was in Transitional Care for altered mental status and lethargy. The nurse was noted that he had not voided for some time. His bladder scan showed 400 mL and the Wong catheter was inserted and according to the nurse, more than 600 mL is drained. He was not uncomfortable, is on Flomax. He repots being constipated prior to this. I am not sure how good starting this, but he said he was voiding without issues at home. PAST MEDICAL HISTORY: Significant for COPD, congestive heart failure, he has an ejection fraction of 30% to 35% and past history of bladder tumor. ALLERGIES: HE HAS NO ALLERGIES. SOCIAL HISTORY: He no longer smokes or uses alcohol. MEDICATIONS: At home, he is on albuterol, Norvasc, Lipitor, Catapres, Lasix, Imdur, Lopressor and Protonix. He is also on prednisone. He has history of chronic constipation. REVIEW OF SYMPTOMS: No symptoms referable to the head, eyes, ears, nose, or throat. At this time, no cardiac, respiratory, or GI symptoms. Wong catheter is draining, he is more comfortable. No dermatologic symptoms. PHYSICAL EXAMINATION: VITAL SIGNS: Shows him to be afebrile, pulse 62, blood pressure 126/65, respirations 18. HEENT: Normocephalic. Sclerae are clear. Conjunctivae not injected. ABDOMEN: Soft. No rebound or guarding. No suprapubic tenderness. GENITALIA: Penis, testicle, cord, epididymis, all within normal limits. Rectal was not done at this time. SKIN: No purpura or edema. NEUROLOGIC: He appears oriented x3 when I questioned him. LABORATORY DATA: His lab work shows a white count of 8100 with hemoglobin of 10.6. His chemistries show a creatinine of 1.3 with BUN of 53. I discussed with the nurses give him a voiding trial in a couple of days once his constipation is completely resolve and then we will check residual to see whether he has chronic retention or is able to go. Elie Burrell MD [facility] # [id number]
--- NOTE | 2017-06-25 16:09 | CP.PCM.PN ---
Subjective - Date & Time of Evaluation Date of Evaluation: 06/25/17 Time of Evaluation: 16:06 - Subjective Subjective: Follow up Nephrology Consultation: Assessment: Stable Acute Kidney Injury (N17.9) likely due to dehydration as evident by Hypernatremia. Hyperkalemia: improved Hypertensive Chronic Kidney Disease (I12.9) Chronic Kidney Disease (N18.9) Stage 3 with 600 mg proteinuria (R80.9) possibly due to HTN/vasc disease HTN (I12.9), pulmonary fibrosis, chronic systolic CHF, bladder tumor, b/l kidney cysts NSTEMI Vit D def with secondary hyperparathyoridism Plan Hypertension control with meds as ordered. Patient not on ACEI/ARB due to recent JASWINDER. BP controlled at this time. Monitor Input/Output, daily weights and renal function with basic metabolic panel while in hospital agree with low dose lasix continue with ergocalciferol 50,000 units weekly x 8 doses. Avoid fleets enemas. GN serology with complement and ANCA neg. kidney biopsy not indicated. Dose meds/antibiotics for reduced GFR. Avoid nephrotoxins/NSAIDs/ iodinated contrast (unless needed emergently) Glycemic control Further work up/management as per primary team Thanks for allowing me to participate in care of your patient. Please call if any Qs. Dr Edvin Nj Office: [phone] Chief Complaint; few episodes of Bm today HPI: Pt is a 87 y/o M with hx of CHF (EF 30-35%), COPD with pulmonary fibrosis, CKD stage 3 (baseline cr 1.1-1.4 mg/dL), HTN, bladder tumor came to ER with altered mental status and shortness of breath and intubated for hypercapnic respi failure, transferred to ICU, renal consult requested for hypernatremia and JASWINDER. got extubated 06/15/17. ROS: Pt offers no new complaints. had few episodes of BM today. denies CP/SOB/ nausea/vomiting Physical Examination: General Appearance: Comfortable, in no acute respiratory distress. Vitals reviewed and noted as below Head; Atraumatic, normocephalic Neck; supple no lymphadenopathy, no thyromegaly or bruit Lungs: Normal respiratory rate/effort. Breath sounds bilateral with basal crackles Heart: Normal rate. s1s2 normal. No rub or gallop. SM at left sternal border Extremities: 1+ edema. No varicose veins. has chronic venous stasis changes. both legs dressed, known to have chronic leg wounds Neurological: Patient is awake alert Skin: Warm and dry. Normal turgor. No rash. Palpitation: Normal elasticity for age. has upper extremity echymoses/swelling + Abdomen: Abdomen is soft but bit distended. Bowel sounds +. There is no abdominal tenderness, no guarding/rigidity no organomegaly MSK: no joint tenderness or swelling. Digits and nails normal, no deformity : kidney or bladder not palpable. Labs/imaging/EKG reviewed. Past medical history, past surgical history, family history, social history, allergy reviewed and noted as below Family hx: no hx of CKD Work up UA done by me showed 30+ protein large blood and LE ++ SG 1.025. microscopy showed very few granular casts, numerous WBCs and also monomorphic RBCs renal sono 2016: b/l renal cysts Objective - Vital Signs/Intake and Output Vital Signs (last 24 hours): Temp Pulse Resp BP Pulse Ox 98.3 F 62 18 126/65 96 06/25/17 09:43 06/25/17 10:22 06/25/17 09:43 06/25/17 10:22 06/25/17 09:43 Intake and Output: 06/25/17 06/25/17 06:59 18:59 Intake Total 300 Output Total 1200 Balance -900 - Medications Medications: Current Medications Acetaminophen (Tylenol 325mg Tab) 650 mg PO Q6H PRN; Protocol PRN Reason: Pain, moderate (4-7) Last Admin: 06/25/17 14:18 Dose: 650 mg Albuterol/Ipratropium (Duoneb 3 Mg/0.5 Mg (3 Ml) Ud) 3 ml IH Q2H PRN; Protocol PRN Reason: Shortness of Breath Albuterol/Ipratropium (Duoneb 3 Mg/0.5 Mg (3 Ml) Ud) 3 ml IH [id number] [facility] PRN Reason: Protocol Last Admin: 06/25/17 13:28 Dose: 3 ml Aspirin (Ecotrin) 81 mg PO 0800 [facility] PRN Reason: Protocol Last Admin: 06/25/17 08:26 Dose: 81 mg Atorvastatin Calcium (Lipitor) 10 mg PO DIN [facility] PRN Reason: Protocol Last Admin: 06/24/17 18:01 Dose: 10 mg Clonidine HCl (Catapres) 0.1 mg PO Q8 PRN PRN Reason: Systolic Blood Pressure Ergocalciferol (Drisdol 50,000 Intl Units Cap) 1 cap PO SAT [facility]EMA PRN Reason: Protocol Famotidine (Pepcid) 20 mg PO 1000,2200 [facility] Furosemide (Lasix) 20 mg PO DAILY [facility] Last Admin: 06/25/17 10:21 Dose: 20 mg Heparin Sodium (Porcine) (Heparin) 5,000 units SC Q12 [facility] PRN Reason: Protocol Last Admin: 06/25/17 10:21 Dose: 5,000 units Ciprofloxacin (Cipro 200mg/100ml D5w) 100 mls @ 67 mls/hr IVPB Q12 [facility] PRN Reason: Protocol Last Admin: 06/25/17 10:18 Dose: 67 mls/hr Isosorbide Mononitrate (Imdur) 60 mg PO DAILY [facility] PRN Reason: Protocol Last Admin: 06/25/17 10:21 Dose: 60 mg Lactic Acid (Lac-Hydrin 12% Cream (140 G)) 0 ea TOP Q12 [facility] Metoprolol Tartrate (Lopressor) 50 mg PO 0800,1800 [facility] PRN Reason: Protocol Last Admin: 06/25/17 08:26 Dose: 50 mg Mupirocin (Bactroban Ointment) 0 gm TOP BID [facility] PRN Reason: Protocol Last Admin: 06/25/17 10:18 Dose: 1 applic Polyethylene Glycol (Miralax) 17 gm PO BID [facility] Last Admin: 06/25/17 10:22 Dose: 17 gm Prednisone (Prednisone Tab) 30 mg PO DAILY [facility] PRN Reason: Protocol Last Admin: 06/25/17 10:23 Dose: 30 mg Senna/Docusate Sodium (Senokot S 50 Mg-8.6 Mg) 1 tab PO BID [facility] PRN Reason: Protocol Last Admin: 06/25/17 10:23 Dose: 1 tab Tamsulosin HCl (Flomax) 0.4 mg PO 1800 [facility] PRN Reason: Protocol Last Admin: 06/24/17 18:04 Dose: 0.4 mg - Labs Labs: 06/25/17 07:10 06/25/17 07:10
--- NOTE | 2017-06-25 17:14 | CP.PCM.PN ---
Subjective - Date & Time of Evaluation Date of Evaluation: 06/25/17 Time of Evaluation: 16:00 - Subjective Subjective: Infectious Disease Follow Up: June 25, 2017 87 yo male brought in initially for lethargy and AMS. The patient has an extensive medical history that includes COPD, CHF last known EF of 30-35% in 2015, HTN, Paget's disease and PAD. The patient required intubation and ventilation once arriving in [facility]. He was extubated several days later. Remains extubated and feeling better. He is much more awake and alert today. No major complaints. He does complain of bilateral lower extremity pain. 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 Multiple chronic medical issues. No major specific complaints at this time. He needed physical therapy. Currently on the med-surg floor. He is growing Klebsiella and Staph Aureus sensitive to Cipro. No new issues. Objective - Vital Signs/Intake and Output Vital Signs (last 24 hours): Temp Pulse Resp BP Pulse Ox 98.3 F 62 18 126/65 96 06/25/17 09:43 06/25/17 10:22 06/25/17 09:43 06/25/17 10:22 06/25/17 09:43 Intake and Output: 06/25/17 06/25/17 06:59 18:59 Intake Total 300 Output Total 1200 Balance -900 - Medications Medications: Current Medications Acetaminophen (Tylenol 325mg Tab) 650 mg PO Q6H PRN; Protocol PRN Reason: Pain, moderate (4-7) Last Admin: 06/25/17 14:18 Dose: 650 mg Albuterol/Ipratropium (Duoneb 3 Mg/0.5 Mg (3 Ml) Ud) 3 ml IH Q2H PRN; Protocol PRN Reason: Shortness of Breath Albuterol/Ipratropium (Duoneb 3 Mg/0.5 Mg (3 Ml) Ud) 3 ml IH [id number] [facility] PRN Reason: Protocol Last Admin: 06/25/17 13:28 Dose: 3 ml Aspirin (Ecotrin) 81 mg PO 0800 [facility] PRN Reason: Protocol Last Admin: 06/25/17 08:26 Dose: 81 mg Atorvastatin Calcium (Lipitor) 10 mg PO DIN [facility] PRN Reason: Protocol Last Admin: 06/24/17 18:01 Dose: 10 mg Clonidine HCl (Catapres) 0.1 mg PO Q8 PRN PRN Reason: Systolic Blood Pressure Ergocalciferol (Drisdol 50,000 Intl Units Cap) 1 cap PO SAT [facility] PRN Reason: Protocol Famotidine (Pepcid) 20 mg PO 1000,2200 [facility] Furosemide (Lasix) 20 mg PO DAILY [facility] Last Admin: 06/25/17 10:21 Dose: 20 mg Heparin Sodium (Porcine) (Heparin) 5,000 units SC Q12 [facility] PRN Reason: Protocol Last Admin: 06/25/17 10:21 Dose: 5,000 units Ciprofloxacin (Cipro 200mg/100ml D5w) 100 mls @ 67 mls/hr IVPB Q12 [facility] PRN Reason: Protocol Last Admin: 06/25/17 10:18 Dose: 67 mls/hr Isosorbide Mononitrate (Imdur) 60 mg PO DAILY [facility] PRN Reason: Protocol Last Admin: 06/25/17 10:21 Dose: 60 mg Lactic Acid (Lac-Hydrin 12% Cream (140 G)) 0 ea TOP Q12 [facility] Metoprolol Tartrate (Lopressor) 50 mg PO 0800,1800 [facility] PRN Reason: Protocol Last Admin: 06/25/17 08:26 Dose: 50 mg Mupirocin (Bactroban Ointment) 0 gm TOP BID [facility] PRN Reason: Protocol Last Admin: 06/25/17 10:18 Dose: 1 applic Polyethylene Glycol (Miralax) 17 gm PO BID [facility] Last Admin: 06/25/17 10:22 Dose: 17 gm Prednisone (Prednisone Tab) 30 mg PO DAILY [facility] PRN Reason: Protocol Last Admin: 06/25/17 10:23 Dose: 30 mg Senna/Docusate Sodium (Senokot S 50 Mg-8.6 Mg) 1 tab PO BID [facility] PRN Reason: Protocol Last Admin: 06/25/17 10:23 Dose: 1 tab Tamsulosin HCl (Flomax) 0.4 mg PO 1800 [facility] PRN Reason: Protocol Last Admin: 06/24/17 18:04 Dose: 0.4 mg - Labs Labs: 06/25/17 07:10 06/25/17 07:10 - Constitutional Appears: Non-toxic, No Acute Distress, Chronically Ill - Head Exam Head Exam: ATRAUMATIC, NORMOCEPHALIC - Eye Exam Eye Exam: EOMI, PERRL Pupil Exam: NORMAL ACCOMODATION, PERRL - ENT Exam ENT Exam: Mucous Membranes Moist, Normal External Ear Exam, TM's Normal Bilaterally - Neck Exam Neck Exam: Full ROM, Normal Inspection - Respiratory Exam Respiratory Exam: Clear to Ausculation Bilateral, NORMAL BREATHING PATTERN. absent: Rales, Rhonchi, Wheezes - Cardiovascular Exam Cardiovascular Exam: REGULAR RHYTHM, RRR, +S1, +S2 - GI/Abdominal Exam GI & Abdominal Exam: Soft, Normal Bowel Sounds. absent: Distended, Tenderness - Extremities Exam Additional comments: +Heel protectors +Venous stasis skin changes B/L LE wrapped with curlex mild cellulitis of the bilateral lower extremities and chronic venous stasis. open ulcerations on the bilateral legs anteriorly. wounds are malodorous. now s/p debridement of the ulcerations. - Neurological Exam Neurological Exam: Alert, Awake, CN II-XII Intact, Oriented x3 - Psychiatric Exam Psychiatric exam: Normal Affect, Normal Mood - Skin Additional comments: As above. Assessment and Plan - Assessment and Plan (Free Text) Assessment: 87 yo male with AMS and lethargy. Etiology unclear. Broad spectrum coverage initially with Rocephin and Vancomycin treatment. Ignacio cultures. Imaging studies. Patient was intubated and ventilated but was extubated several days later. Overall improving. Supportive care. Obtain procalcitonin... which was 0.48 which is normal. Follow up WBC and fever trend. Urine drug screen positive for Benzodiazepine. Respiratory failure. Renal insufficiency (acute or chronic?). Patient has a history of hypertension and systolic congestive heart failure. Patient improving and is mentally back to his normal state at this time. His only complaint is of bilateral lower leg pains. Went to OR Sunday morning for debridement of unhealthy tissue of the legs. No additional issues. Cultures showing Staph Aureus and Klebsiella. The patient started on Cipro IV today. He will need 10 days of treatment although it does not have to be all by IV and can be finished with PO Cipro. He has been otherwise stable. Thank you for allowing me to participate in the care of the patient, we will follow with you.
[2017-06-25] MEDS: Ammonium Lactate 12% Cream (140 g) TOP SCH (21:04)
[2017-06-26] MEDS: Albuterol-Ipratrop 3 mg / 0.5 (3 ml) UD IH SCH ×4 (02:13→19:31)
--- NOTE | 2017-06-26 06:52 | PN ---
DATE: 06/26/2017 SUBJECTIVE: The patient appears comfortable this morning. He is not short of breath at rest. PHYSICAL EXAMINATION: VITAL SIGNS: Temperature is 98.3, pulse is 63, respirations 18, blood pressure 123/64. Oxygen saturation on nasal cannula is 97%. HEENT: Normocephalic and atraumatic. NECK: No JVD. CARDIOVASCULAR: Systolic ejection murmur at the lower left sternal border. No S3 gallop. LUNGS: Improved breath sounds at the bases. Minimal/less rhonchi. No wheezing. EXTREMITIES: Mild edema. No cyanosis. No clubbing. Calves are nontender to palpation. GASTROINTESTINAL: Abdomen is soft, nontender, and nondistended. Bowel sounds are positive. SKIN: Improved cellulitic changes-both lower extremities. NEUROLOGICAL: Limited at the present time. IMPRESSION: 1. Status post respiratory failure. 2. Subacute cerebrovascular accident. 3. Chronic obstructive pulmonary disease. 4. Bilateral pneumonia. 5. Myocardial infarction. 6. Renal insufficiency. 7. Bilateral leg cellulitis. PLAN: The patient appears comfortable this morning. He is not short of breath at rest. He does state to feeling much better overall. On physical exam, his bronchospasm is much less overall. In addition, there is no significant alveolar-arterial gradient. I will continue with the current nebulizer treatments and decrease the oral steroids this morning. I would continue with the treatment for acute myocardial infarction as per cardiology. Input by Dr. Gomez is noted. I would continue with the antibiotic coverage as per infectious disease. Input by Dr. Martin is noted. Clinical status of the patient is significantly improved. He is now on the transitional unit-- where he will participate with physical therapy. I will discuss the above with the attending physician this morning. [place] MD MADHURI
[2017-06-26 07:20] LABS: EOS # 0.1 (0.0-0.7); EOS % 1.3 % (1.5-5.0); GRAN # 7.42 (1.4-6.5); HEMATOCRIT 36.5 % (42.0-52.0); LYMPH % 10.3 % (22.0-35.0); MEAN CELL VOLUME 93.4 fl (80.0-105.0); MEAN CORPUSCULAR HEMOGLOBIN 28.4 pg (25.0-35.0); MEAN CORPUSCULAR HGB CONC 30.4 g/dl (31.0-37.0); MEAN PLATELET VOLUME 11.1 fl (7.0-11.0); MONO # 0.8 (0.1-0.6); MONO % 8.4 % (1.0-6.0); RED CELL DISTRIBUTION WIDTH 17.3 % (11.5-14.5); WHITE BLOOD COUNT 9.3 10^3/ul (4.5-11.0)
--- NOTE | 2017-06-26 07:55 | CP.PCM.PN ---
<GENTRY CASEY - Last Filed: 06/26/17 11:22> Subjective - Date & Time of Evaluation Date of Evaluation: 06/26/17 Time of Evaluation: 07:30 - Subjective Subjective: Gentry Casey DO PGY1 - Internal Medicine Progress Note Patient seen and examined at bedside in TCU. Nurses report that he had 3 large BMs yesterday, otherwise, no acute events overnight. Patient feels much relief after his BM yesterday. Otherwise, he denies any CP, SOB, N/V/D, abdominal pain , bloating. He continues to have some pain in his feet, which resolves with tylenol. Objective - Vital Signs/Intake and Output Vital Signs (last 24 hours): Temp Pulse Resp BP Pulse Ox 98.2 F 61 18 130/71 99 06/26/17 06:37 06/26/17 06:37 06/26/17 06:37 06/26/17 06:37 06/26/17 06:37 Intake and Output: 06/26/17 06/26/17 06:59 18:59 Intake Total 300 Output Total 950 Balance -650 - Medications Medications: Current Medications Acetaminophen (Tylenol 325mg Tab) 650 mg PO Q6H PRN; Protocol PRN Reason: Pain, moderate (4-7) Last Admin: 06/25/17 21:02 Dose: 650 mg Albuterol/Ipratropium (Duoneb 3 Mg/0.5 Mg (3 Ml) Ud) 3 ml IH Q2H PRN; Protocol PRN Reason: Shortness of Breath Albuterol/Ipratropium (Duoneb 3 Mg/0.5 Mg (3 Ml) Ud) 3 ml IH [id number] TOMER PRN Reason: Protocol Last Admin: 06/26/17 07:25 Dose: 3 ml Aspirin (Ecotrin) 81 mg PO 0800 TOMER PRN Reason: Protocol Last Admin: 06/25/17 08:26 Dose: 81 mg Atorvastatin Calcium (Lipitor) 10 mg PO DIN TOMER PRN Reason: Protocol Last Admin: 06/25/17 17:32 Dose: 10 mg Clonidine HCl (Catapres) 0.1 mg PO Q8 PRN PRN Reason: Systolic Blood Pressure Ergocalciferol (Drisdol 50,000 Intl Units Cap) 1 cap PO SAT TOMER PRN Reason: Protocol Famotidine (Pepcid) 20 mg PO 1000,2200 [facility] Last Admin: 06/25/17 21:05 Dose: 20 mg Furosemide (Lasix) 20 mg PO DAILY [facility] Last Admin: 06/25/17 10:21 Dose: 20 mg Heparin Sodium (Porcine) (Heparin) 5,000 units SC Q12 TOMER PRN Reason: Protocol Last Admin: 06/25/17 21:03 Dose: 5,000 units Ciprofloxacin (Cipro 200mg/100ml D5w) 100 mls @ 67 mls/hr IVPB Q12 TOMER PRN Reason: Protocol Last Admin: 06/25/17 21:03 Dose: 67 mls/hr Isosorbide Mononitrate (Imdur) 60 mg PO DAILY [facility] PRN Reason: Protocol Last Admin: 06/25/17 10:21 Dose: 60 mg Lactic Acid (Lac-Hydrin 12% Cream (140 G)) 0 ea TOP Q12 [facility] Last Admin: 06/25/17 21:04 Dose: 1 unit Metoprolol Tartrate (Lopressor) 50 mg PO 0800,1800 [facility] PRN Reason: Protocol Last Admin: 06/25/17 17:33 Dose: 50 mg Mupirocin (Bactroban Ointment) 0 gm TOP BID [facility] PRN Reason: Protocol Last Admin: 06/25/17 17:32 Dose: 1 applic Polyethylene Glycol (Miralax) 17 gm PO BID [facility] Last Admin: 06/25/17 17:33 Dose: 17 gm Prednisone (Prednisone Tab) 20 mg PO DAILY [facility] Senna/Docusate Sodium (Senokot S 50 Mg-8.6 Mg) 1 tab PO BID [facility] PRN Reason: Protocol Last Admin: 06/25/17 17:33 Dose: 1 tab Tamsulosin HCl (Flomax) 0.4 mg PO 1800 TOMER PRN Reason: Protocol Last Admin: 06/25/17 17:33 Dose: 0.4 mg - Labs Labs: 06/26/17 07:00 06/25/17 07:10 - Constitutional Appears: Non-toxic, No Acute Distress, Chronically Ill - Head Exam Head Exam: ATRAUMATIC, NORMOCEPHALIC - Eye Exam Eye Exam: EOMI, PERRL - ENT Exam ENT Exam: Mucous Membranes Moist - Neck Exam Neck Exam: absent: Lymphadenopathy, Thyromegaly - Respiratory Exam Additional comments: Poor inspiratory effort. Prolonged expiratory phase. Bibasilar crackles. - Cardiovascular Exam Cardiovascular Exam: RRR, +S1, +S2, Murmur (holosystolic flow murmur) - GI/Abdominal Exam GI & Abdominal Exam: Soft, Normal Bowel Sounds. absent: Distended, Firm, Guarding, Rigid, Tenderness - Exam Additional comments: Swanson catheter in place, draining clear yellow urine - Extremities Exam Additional comments: B/L UE echymoses - Back Exam Back Exam: absent: CVA tenderness (L), CVA tenderness (R) - Neurological Exam Neurological Exam: Alert, Awake, Oriented x3 - Psychiatric Exam Psychiatric exam: Normal Affect, Normal Mood - Skin Skin Exam: Dry, Intact Assessment and Plan - Assessment and Plan (Free Text) Assessment: 87 yo M with PMH of COPD, CHF with LVEF 17%, Paget's disease, and HTN who initially presented with AMS and hypercapnic respiratory failure requiring intubation/mechanical ventilation. Remains on AvyCaz for b/l LE MRSA cellulitis. Now with azotemia, in the setting of CHF with diffuse edema and borderline fluid overload. Admitted to TCU for deconditioning and weakness Plan: 1. Deconditioning and weakness - Continue daily physical therapy 2. Acute Hypercapnic Respiratory Failure: Resolved -2/2 CHF exacerbation in setting of NSTEMI/demand ischemia -2/2 severe COPD, now s/p extubation a week ago -Switched to PO steroids, now on Prednisone 20 - tapering down slowly - Nebs Q6H tomer/Q2 prn, as per Pulm -Satting well on O2 NC, maintain SaO2 88-95%, avoid persistently elevated SaO2 to prevent suppression of respiratory drive in COPD pt -Heparin drip d/c'd >48hrs post [place], will continue with conservative management at this time, no new stress test. -Cardio (Santa), Neuro (Cindi Castro), and Pulm (Jayy) consulted, appreciate all recs 3. Altered Mental Status: Resolved -2/2 Hypercapnic resp failure vs Sepsis from LE cellulitis vs ACS -Head CT: small hypodense lacunar infarct within the left cerebellar lobe, considered to be subacute -UDS (+) benzos, no benzos listed in home medication charting -MRI showing chronic microvascular changes, MRA unremarkable -EEG completed, significant for diffuse slowing "drowsy". Was done when sedated. -Blood cx showing no growth x 5 days, urine cx no growth 4. MRSA cellulitis, b/l leg -Wound cxs: +MRSA, Right leg WCX: E.Coli, Staph. Aureus (Resistant to PCN but Oxa sensitive); Left leg WCX: Klebsella Oxytosa, Staph Aureus -Continue Ciprofloxacin (d6) per ID for 10 day course -ID (Mario) and Podiatry (Iftikhar) consulted, appreciate all recs -Patient is s/p for debridement of RLE wound nonviable tissue with podiatry 5. NSTEMI -Troponins peaked at 1.16, plateued and then trended down -Continue conservative management, no stress test at this time per cardio. Previously on heparin drip, discontinued after 48hrs -Continue Metoprolol, Imdur, Cozaar, Statin, ASA, Plavix, lipitor 6. Chronic venous stasis ulceration -B/L lower extremity wounds currently being managed by podiatry -Daily dressing changes and topical antibiotic application 7. Congestive Heart Failure (Systolic) -Last echo shows LVEF 17% -Increased lasix to 20mg QOD and 40mg QOD. -Strict I&O's -Daily weights -Cardio consulted, appreciate all recs 8. Acute Kidney Injury on CKD - Resolved -Was off lasix for 4 days after acute elevation in creatinine level, now resolved. -Elevation in Na and K, likely 2/2 diuresis. Continue to monitor daily CMP -monitor I&Os -Nephro (Ondina) consulted, appreciate all recs 9. Hypertension -continue Lopressor 50mg PO BID, Hydralazine 10mg Q6H PRN, Imdur 60mg PO QD, Cozaar 25 mg PO QD 10. H/o BPH, now with urinary retention -On home Flomax -Bladder scan previously showed 750 mL residual, with only minimal discomfort, though nurses reported incontinence. -Bladder drained with straight cath, then swanson was placed. -Consulted urology (Yeyo), all recs appreciated; likely voiding trial today or tomorrow 11. Constipation - resolved -Had 3 large BMs yesterday, after receiving magnesium citrate, and on senna/ colace -Continue to monitor 12. Thrombocytopenia -Patient is hemodynamically stable with no active bleeding. -Downtrending platelet count likely due to continued heparin administration, will d/c today, as patient is ambulating with PT so no longer requires DVT prophylaxis -Was on protonix for GI PPx, switched to pepcid yesterday -Monitor daily CBCs Ppx: Ambulating with PT covers for DVT, Pepcid for GI Dispo: Patient will likely be discharged on 06/29 to home vs [facility] for continued rehab, pending PT's recommendations; will require home O2 Patient seen, discussed, and reviewed with attending <Lina Jarrett - Last Filed: 06/26/17 14:24> Objective - Vital Signs/Intake and Output Vital Signs (last 24 hours): Temp Pulse Resp BP Pulse Ox 98.2 F 58 L 18 118/58 L 99 06/26/17 10:06 06/26/17 10:06 06/26/17 10:06 06/26/17 10:06 06/26/17 10:06 Intake and Output: 06/26/17 06/26/17 06:59 18:59 Intake Total 300 Output Total 950 Balance -650 - Medications Medications: Current Medications Acetaminophen (Tylenol 325mg Tab) 650 mg PO Q6H PRN; Protocol PRN Reason: Pain, moderate (4-7) Last Admin: 06/25/17 21:02 Dose: 650 mg Albuterol/Ipratropium (Duoneb 3 Mg/0.5 Mg (3 Ml) Ud) 3 ml IH Q2H PRN; Protocol PRN Reason: Shortness of Breath Albuterol/Ipratropium (Duoneb 3 Mg/0.5 Mg (3 Ml) Ud) 3 ml IH [id number] TOMER PRN Reason: Protocol Last Admin: 06/26/17 13:08 Dose: 3 ml Aspirin (Ecotrin) 81 mg PO 0800 TOMER PRN Reason: Protocol Last Admin: 06/26/17 08:27 Dose: 81 mg Atorvastatin Calcium (Lipitor) 10 mg PO DIN TOMER PRN Reason: Protocol Last Admin: 06/25/17 17:32 Dose: 10 mg Clonidine HCl (Catapres) 0.1 mg PO Q8 PRN PRN Reason: Systolic Blood Pressure Ergocalciferol (Drisdol 50,000 Intl Units Cap) 1 cap PO SAT [facility] PRN Reason: Protocol Famotidine (Pepcid) 20 mg PO 1000,2200 [facility] Last Admin: 06/26/17 10:38 Dose: 20 mg Furosemide (Lasix) 40 mg PO QOTHERDAY TOMER Furosemide (Lasix) 20 mg PO QOTHERDAY [facility] Ciprofloxacin (Cipro 200mg/100ml D5w) 100 mls @ 67 mls/hr IVPB Q12 TOMER PRN Reason: Protocol Last Admin: 06/26/17 09:26 Dose: 67 mls/hr Isosorbide Mononitrate (Imdur) 60 mg PO DAILY [facility] PRN Reason: Protocol Last Admin: 06/26/17 09:27 Dose: Not Given Lactic Acid (Lac-Hydrin 12% Cream (140 G)) 0 ea TOP Q12 [facility] Last Admin: 06/26/17 10:39 Dose: 1 unit Metoprolol Tartrate (Lopressor) 50 mg PO 0800,1800 [facility] PRN Reason: Protocol Last Admin: 06/26/17 08:27 Dose: 50 mg Mupirocin (Bactroban Ointment) 0 gm TOP BID [facility]OMER PRN Reason: Protocol Last Admin: 06/26/17 10:41 Dose: 1 applic Polyethylene Glycol (Miralax) 17 gm PO BID [facility] Last Admin: 06/26/17 09:28 Dose: 17 gm Prednisone (Prednisone Tab) 20 mg PO DAILY [facility] Last Admin: 06/26/17 10:38 Dose: 20 mg Senna/Docusate Sodium (Senokot S 50 Mg-8.6 Mg) 1 tab PO BID [facility] PRN Reason: Protocol Last Admin: 06/26/17 09:29 Dose: 1 tab Tamsulosin HCl (Flomax) 0.4 mg PO 1800 [facility] PRN Reason: Protocol Last Admin: 06/25/17 17:33 Dose: 0.4 mg - Labs Labs: 06/26/17 07:00 06/26/17 07:00 Attending/Attestation - Attestation I have personally seen and examined this patient.: Yes I have fully participated in the care of the patient.: Yes I have reviewed all pertinent clinical information, including history, physical exam and plan: Yes Notes (Text): 06/26/17 14:14 87 year old male with extensive medical history and hospital course as above. He is currently in TCU for physical therapy rehabilitation. Cardiology is following his for recent NSTEMI and CHF. He is on aspirin, metoprolol, statin, and lasix. Pulmonary is following for history of COPD. He is on duonebs and po steroids. He is on antibiotics as per ID for LE MRSA cellulitis. Podiatry is following as well. His JASWINDER has improved. Nephrology is following. Will monitory sodium and potassium closely which are elevated today. He had urinary retention few days prior for which swanson was inserted. He is on flomax. Consider voiding trial in few days per urology. Constipation has improved after magnesium citrate yesterday. He is on colace and miralax. Lina Jarrett MD Hospitalist.
[2017-06-26 07:58] LABS: ALKALINE PHOSPHATASE 128 U/L (38-126); ALT/SGPT 42 U/L (7-56); AST/SGOT 31 U/L (17-59); BILIRUBIN,TOTAL 0.9 mg/dL (0.2-1.3); BLOOD UREA NITROGEN 50 mg/dL (7-21); CALCIUM 8.2 mg/dL (8.4-10.5); CARBON DIOXIDE 36 mmol/L (21-33); CHLORIDE 107 mmol/L (98-107); GFR AFRICAN-AMERICAN > 60; GLUCOSE,RANDOM 111 mg/dL (70-110); POTASSIUM 5.5 mmol/L (3.6-5.0); SODIUM 149 mmol/L (132-148); TOTAL PROTEIN 5.3 g/dL (5.8-8.3)
[2017-06-26] MEDS: Ciprofloxacin 200mg/100ml D5W 100 ML IVPB SCH ×2 (09:26→21:45)
--- NOTE | 2017-06-26 09:26 | PN ---
DATE: 06/26/2017 SUBJECTIVE: The patient is seen lying in bed in the TCU. He is currently comfortable. He apparently did some ambulating with a walker yesterday. Wong catheter remains in place. CURRENT MEDICATIONS: Remain Catapres p.r.n., ciprofloxacin, DuoNeb inhaler, Ecotrin, Flomax, subcutaneous heparin, Imdur 60 mg daily, Lasix 20 mg daily, Lipitor 10 mg daily, metoprolol 50 mg b.i.d., MiraLax, Pepcid, and prednisone 20 mg daily. OBJECTIVE: GENERAL: He is a very elderly man who appears comfortable at rest. VITAL SIGNS: His blood pressure is 130/70 with a pulse of 60, respiration is 16 and he is afebrile. HEENT: No JVD. CHEST: Bilateral scattered rhonchi. HEART: PMI displaced laterally with soft tones noted. ABDOMEN: Soft and nontender with normoactive bowel sounds. EXTREMITIES: Both lower extremities are wrapped. DIAGNOSTIC DATA: White count is 9.3, hemoglobin and hematocrit 11.1 and 36.5 with a platelet count of 109,000. IMPRESSION: 1. Status post respiratory failure, clinically improved. 2. Coronary artery disease, status post remote myocardial infarction. 3. Advanced chronic obstructive pulmonary disease. 4. Chronic renal insufficiency. 5. Urinary retention. 6. Chronic venous stasis ulcerations. RECOMMENDATIONS: His current management and treatment should continue. Increase activity as tolerated is advised. Continue conservative management with his cardiac issues as planned. We will be happy to follow along and make further recommendations as appropriate. Seth Gomez MD
[2017-06-26] MEDS: POLYETHYLENE GLYCOL 3350 17 GM/Dose PACKET PO SCH ×2 (09:28→17:17)
[2017-06-26] MEDS: Docusate-Senna 50 mg-8.6 mg Tab PO SCH ×2 (09:29→17:18)
[2017-06-26] MEDS: Ammonium Lactate 12% Cream (140 g) TOP SCH ×2 (10:39→21:46)
--- NOTE | 2017-06-26 11:41 | CP.PCM.PN ---
<Renae Kaur - Last Filed: 06/26/17 11:39> Subjective - Date & Time of Evaluation Date of Evaluation: 06/26/17 Time of Evaluation: 11:39 - Subjective Subjective: 87 y/o male seen at bedside today in TCU with attending Dr. Cummings 6 days s/p right leg wound debridement. Patient is seen resting comfortably in bed and is in good spirits. Patient is noticing improvements in his mobility with physical therapy and is not experiencing significant pain at this time. Patient denies N/ V/F/D/C/SOB/calf pain. No other pedal complaints at this time. Objective - Vital Signs/Intake and Output Vital Signs (last 24 hours): Temp Pulse Resp BP Pulse Ox 98.2 F 58 L 18 118/58 L 99 06/26/17 10:06 06/26/17 10:06 06/26/17 10:06 06/26/17 10:06 06/26/17 10:06 Intake and Output: 06/26/17 06/26/17 06:59 18:59 Intake Total 300 Output Total 950 Balance -650 - Medications Medications: Current Medications Acetaminophen (Tylenol 325mg Tab) 650 mg PO Q6H PRN; Protocol PRN Reason: Pain, moderate (4-7) Last Admin: 06/25/17 21:02 Dose: 650 mg Albuterol/Ipratropium (Duoneb 3 Mg/0.5 Mg (3 Ml) Ud) 3 ml IH Q2H PRN; Protocol PRN Reason: Shortness of Breath Albuterol/Ipratropium (Duoneb 3 Mg/0.5 Mg (3 Ml) Ud) 3 ml IH [id number] REEMA PRN Reason: Protocol Last Admin: 06/26/17 07:25 Dose: 3 ml Aspirin (Ecotrin) 81 mg PO 0800 RE[facility] PRN Reason: Protocol Last Admin: 06/26/17 08:27 Dose: 81 mg Atorvastatin Calcium (Lipitor) 10 mg PO DIN REEMA PRN Reason: Protocol Last Admin: 06/25/17 17:32 Dose: 10 mg Clonidine HCl (Catapres) 0.1 mg PO Q8 PRN PRN Reason: Systolic Blood Pressure Ergocalciferol (Drisdol 50,000 Intl Units Cap) 1 cap PO SAT REEMA PRN Reason: Protocol Famotidine (Pepcid) 20 mg PO 1000,2200 [facility] Last Admin: 06/26/17 10:38 Dose: 20 mg Furosemide (Lasix) 40 mg PO QOTHERDAY [facility] Furosemide (Lasix) 20 mg PO QOTHERDAY [facility] Ciprofloxacin (Cipro 200mg/100ml D5w) 100 mls @ 67 mls/hr IVPB Q12 REEMA PRN Reason: Protocol Last Admin: 06/26/17 09:26 Dose: 67 mls/hr Isosorbide Mononitrate (Imdur) 60 mg PO DAILY [facility] PRN Reason: Protocol Last Admin: 06/26/17 09:27 Dose: Not Given Lactic Acid (Lac-Hydrin 12% Cream (140 G)) 0 ea TOP Q12 [facility] Last Admin: 06/26/17 10:39 Dose: 1 unit Metoprolol Tartrate (Lopressor) 50 mg PO 0800,1800 [facility] PRN Reason: Protocol Last Admin: 06/26/17 08:27 Dose: 50 mg Mupirocin (Bactroban Ointment) 0 gm TOP BID [facility] PRN Reason: Protocol Last Admin: 06/26/17 10:41 Dose: 1 applic Polyethylene Glycol (Miralax) 17 gm PO BID [facility] Last Admin: 06/26/17 09:28 Dose: 17 gm Prednisone (Prednisone Tab) 20 mg PO DAILY [facility] Last Admin: 06/26/17 10:38 Dose: 20 mg Senna/Docusate Sodium (Senokot S 50 Mg-8.6 Mg) 1 tab PO BID [facility] PRN Reason: Protocol Last Admin: 06/26/17 09:29 Dose: 1 tab Tamsulosin HCl (Flomax) 0.4 mg PO 1800 [facility] PRN Reason: Protocol Last Admin: 06/25/17 17:33 Dose: 0.4 mg - Labs Labs: 06/26/17 07:00 06/26/17 07:00 - Constitutional Appears: Well, Non-toxic, No Acute Distress - Extremities Exam Additional comments: Bilateral lower extremity examination: Vasc: Palpable DP and PT pulses are noted 1/4 bilaterally. CFT < 3 seconds noted to all digits Derm: Right: Open ulcerations to anterior and lateral aspect of leg measuring 10cm x 4cm x 0.2cm with granular base. Minimal serosanguinous drainage is noted. Decreasing erythema, no purulence, no malodor. Left: Open ulcerations to anterior aspect of leg measuring 9cm x 4cm x 0.2cm with a mixed fibrogranular base. Mild serosanguinous drainage is noted. No malodor, no purulence. Mild erythema noted to wound periphery. - Neurological Exam Neurological Exam: Alert, Awake, Oriented x3 - Psychiatric Exam Psychiatric exam: Normal Affect, Normal Mood Assessment and Plan - Assessment and Plan (Free Text) Assessment: 87 yo male patient with venous stasis ulcerations to anterior aspect of bilateral legs (R>L) 6 days s/p right leg wound debridement Plan: Patient was seen and evaluated at bedside with attending Dr. Buitrago Chart, labs and vitals reviewed - afebrile, WBC WNL at 9.3 Bilateral legs dressed with Bactroban, Adaptic and DSD aseptic trimming of toenails x 10 to hygienic length using sterile nippers Applied Tubigrip stockings to B/L lower extremities - please remove at nighttime before bed and reapply in AM Lac Hydrin to be applied to humble wound areas on bilateral legs BID Continue IV Cipro as per ID as patient is growing S. aureus and Klebsiella Podiatry will continue to follow in-house <Noam Cummings - Last Filed: 06/27/17 21:13> Objective - Vital Signs/Intake and Output Vital Signs (last 24 hours): Temp Pulse Resp BP Pulse Ox 98 F 60 18 113/77 98 06/27/17 16:18 06/27/17 18:03 06/27/17 16:18 06/27/17 18:03 06/27/17 16:18 - Medications Medications: Current Medications Acetaminophen (Tylenol 325mg Tab) 650 mg PO Q6H PRN; Protocol PRN Reason: Pain, moderate (4-7) Last Admin: 06/27/17 01:44 Dose: 650 mg Albuterol/Ipratropium (Duoneb 3 Mg/0.5 Mg (3 Ml) Ud) 3 ml IH Q2H PRN; Protocol PRN Reason: Shortness of Breath Albuterol/Ipratropium (Duoneb 3 Mg/0.5 Mg (3 Ml) Ud) 3 ml IH [id number] REEMA PRN Reason: Protocol Last Admin: 06/27/17 19:57 Dose: 3 ml Aspirin (Ecotrin) 81 mg PO 0800 [facility] PRN Reason: Protocol Last Admin: 06/27/17 08:36 Dose: 81 mg Atorvastatin Calcium (Lipitor) 10 mg PO DIN [facility] PRN Reason: Protocol Last Admin: 06/27/17 18:00 Dose: 10 mg Clonidine HCl (Catapres) 0.1 mg PO Q8 PRN PRN Reason: Systolic Blood Pressure Ergocalciferol (Drisdol 50,000 Intl Units Cap) 1 cap PO SAT REEMA PRN Reason: Protocol Famotidine (Pepcid) 20 mg PO 1000,2200 [facility] Last Admin: 06/27/17 11:00 Dose: 20 mg Furosemide (Lasix) 40 mg PO QOTHERDAY [facility] Last Admin: 06/27/17 11:35 Dose: 40 mg Furosemide (Lasix) 20 mg PO QOTHERDAY [facility] Ciprofloxacin (Cipro 200mg/100ml D5w) 100 mls @ 67 mls/hr IVPB Q12 [facility] PRN Reason: Protocol Last Admin: 06/27/17 11:34 Dose: 67 mls/hr Isosorbide Mononitrate (Imdur) 60 mg PO DAILY [facility] PRN Reason: Protocol Last Admin: 06/27/17 11:00 Dose: 60 mg Lactic Acid (Lac-Hydrin 12% Cream (140 G)) 0 ea TOP Q12 [facility] Last Admin: 06/27/17 11:00 Dose: 1 dose Metoprolol Tartrate (Lopressor) 50 mg PO 0800,1800 [facility] PRN Reason: Protocol Last Admin: 06/27/17 18:03 Dose: 50 mg Mupirocin (Bactroban Ointment) 0 gm TOP BID [facility] PRN Reason: Protocol Last Admin: 06/27/17 18:02 Dose: 1 applic Polyethylene Glycol (Miralax) 17 gm PO BID [facility] Last Admin: 06/27/17 18:07 Dose: Not Given Prednisone (Prednisone Tab) 20 mg PO DAILY [facility] Last Admin: 06/27/17 11:00 Dose: 20 mg Senna/Docusate Sodium (Senokot S 50 Mg-8.6 Mg) 1 tab PO BID [facility] PRN Reason: Protocol Last Admin: 06/27/17 18:07 Dose: 1 tab Tamsulosin HCl (Flomax) 0.4 mg PO 1800 [facility] PRN Reason: Protocol Last Admin: 06/27/17 18:02 Dose: 0.4 mg - Labs Labs: 06/26/17 07:00 06/26/17 18:25 Attending/Attestation - Attestation I have personally seen and examined this patient.: Yes I have fully participated in the care of the patient.: Yes I have reviewed all pertinent clinical information, including history, physical exam and plan: Yes
--- NOTE | 2017-06-26 15:14 | CP.PCM.PN ---
Subjective - Date & Time of Evaluation Date of Evaluation: 06/26/17 Time of Evaluation: 15:10 - Subjective Subjective: Follow up Nephrology Consultation: Assessment: Stable Acute Kidney Injury (N17.9) likely due to dehydration: improved Hypernatremia. Hyperkalemia Hypertensive Chronic Kidney Disease (I12.9) Chronic Kidney Disease (N18.9) Stage 3 with 600 mg proteinuria (R80.9) possibly due to HTN/vasc disease HTN (I12.9), pulmonary fibrosis, chronic systolic CHF, bladder tumor, b/l kidney cysts NSTEMI Vit D def with secondary hyperparathyoridism Plan Hypertension control with meds as ordered. Patient not on ACEI/ARB due to recent JASWINDER and elevated K. BP controlled at this time. Monitor Input/Output, daily weights and renal function with basic metabolic panel while in hospital diuretics as per primary team for his CHF. watch for dehydration and hypernatremia/electrolytes imbalances. May need to lower dose of diuretics if continue to have rise in serum Na/K continue with ergocalciferol 50,000 units weekly x 8 doses. Avoid fleets enemas low K diet Dose meds/antibiotics for reduced GFR 50-60. Avoid nephrotoxins/NSAIDs/ iodinated contrast (unless needed emergently) Glycemic control Further work up/management as per primary team Thanks for allowing me to participate in care of your patient. Please call if any Qs. Dr Edvin jN Office: [phone] Chief Complaint; no new complaints HPI: Pt is a 87 y/o M with hx of CHF (EF 30-35%), COPD with pulmonary fibrosis, CKD stage 3 (baseline cr 1.1-1.4 mg/dL), HTN, bladder tumor came to ER with altered mental status and shortness of breath and intubated for hypercapnic respi failure, transferred to ICU, renal consult requested for hypernatremia and JASWINDER. got extubated 06/15/17. ROS: Pt offers no new complaints. had 1 episodes of BM today. denies CP/SOB/ nausea/vomiting Physical Examination: General Appearance: Comfortable, in no acute respiratory distress. Vitals reviewed and noted as below Head; Atraumatic, normocephalic Neck; supple no lymphadenopathy, no thyromegaly or bruit Lungs: Normal respiratory rate/effort. Breath sounds bilateral with basal crackles Heart: Normal rate. s1s2 normal. No rub or gallop. SM at left sternal border Extremities: no edema. No varicose veins. has chronic venous stasis changes. both legs dressed, known to have chronic leg wounds Neurological: Patient is awake alert Skin: Warm and dry. Normal turgor. No rash. Palpitation: Normal elasticity for age. has upper extremity echymoses/swelling + which is improved Abdomen: Abdomen is soft. Bowel sounds +. There is no abdominal tenderness, no guarding/rigidity no organomegaly MSK: no joint tenderness or swelling. Digits and nails normal, no deformity : kidney or bladder not palpable. has swanson Labs/imaging/EKG reviewed. Past medical history, past surgical history, family history, social history, allergy reviewed and noted as below Family hx: no hx of CKD Work up UA done by me showed 30+ protein large blood and LE ++ SG 1.025. microscopy showed very few granular casts, numerous WBCs and also monomorphic RBCs renal sono 2016: b/l renal cysts Objective - Vital Signs/Intake and Output Vital Signs (last 24 hours): Temp Pulse Resp BP Pulse Ox 98.2 F 58 L 18 118/58 L 99 06/26/17 10:06 06/26/17 10:06 06/26/17 10:06 06/26/17 10:06 06/26/17 10:06 Intake and Output: 06/26/17 06/26/17 06:59 18:59 Intake Total 300 Output Total 950 Balance -650 - Medications Medications: Current Medications Acetaminophen (Tylenol 325mg Tab) 650 mg PO Q6H PRN; Protocol PRN Reason: Pain, moderate (4-7) Last Admin: 06/25/17 21:02 Dose: 650 mg Albuterol/Ipratropium (Duoneb 3 Mg/0.5 Mg (3 Ml) Ud) 3 ml IH Q2H PRN; Protocol PRN Reason: Shortness of Breath Albuterol/Ipratropium (Duoneb 3 Mg/0.5 Mg (3 Ml) Ud) 3 ml IH [id number] [facility] PRN Reason: Protocol Last Admin: 06/26/17 13:08 Dose: 3 ml Aspirin (Ecotrin) 81 mg PO 0800 [facility] PRN Reason: Protocol Last Admin: 06/26/17 08:27 Dose: 81 mg Atorvastatin Calcium (Lipitor) 10 mg PO DIN [facility] PRN Reason: Protocol Last Admin: 06/25/17 17:32 Dose: 10 mg Clonidine HCl (Catapres) 0.1 mg PO Q8 PRN PRN Reason: Systolic Blood Pressure Ergocalciferol (Drisdol 50,000 Intl Units Cap) 1 cap PO SAT [facility] PRN Reason: Protocol Famotidine (Pepcid) 20 mg PO 1000,2200 [facility] Last Admin: 06/26/17 10:38 Dose: 20 mg Furosemide (Lasix) 40 mg PO QOTHERDAY [facility] Furosemide (Lasix) 20 mg PO QOTHERDAY [facility] Ciprofloxacin (Cipro 200mg/100ml D5w) 100 mls @ 67 mls/hr IVPB Q12 [facility] PRN Reason: Protocol Last Admin: 06/26/17 09:26 Dose: 67 mls/hr Isosorbide Mononitrate (Imdur) 60 mg PO DAILY [facility] PRN Reason: Protocol Last Admin: 06/26/17 09:27 Dose: Not Given Lactic Acid (Lac-Hydrin 12% Cream (140 G)) 0 ea TOP Q12 [facility] Last Admin: 06/26/17 10:39 Dose: 1 unit Metoprolol Tartrate (Lopressor) 50 mg PO 0800,1800 [facility] PRN Reason: Protocol Last Admin: 06/26/17 08:27 Dose: 50 mg Mupirocin (Bactroban Ointment) 0 gm TOP BID [facility] PRN Reason: Protocol Last Admin: 06/26/17 10:41 Dose: 1 applic Polyethylene Glycol (Miralax) 17 gm PO BID [facility] Last Admin: 06/26/17 09:28 Dose: 17 gm Prednisone (Prednisone Tab) 20 mg PO DAILY [facility] Last Admin: 06/26/17 10:38 Dose: 20 mg Senna/Docusate Sodium (Senokot S 50 Mg-8.6 Mg) 1 tab PO BID [facility] PRN Reason: Protocol Last Admin: 06/26/17 09:29 Dose: 1 tab Tamsulosin HCl (Flomax) 0.4 mg PO 1800 [facility] PRN Reason: Protocol Last Admin: 06/25/17 17:33 Dose: 0.4 mg - Labs Labs: 06/26/17 07:00 06/26/17 07:00
--- NOTE | 2017-06-26 17:46 | CP.PCM.PN ---
Subjective - Date & Time of Evaluation Date of Evaluation: 06/26/17 Time of Evaluation: 17:30 - Subjective Subjective: Infectious Disease Follow Up: June 26, 2017 87 yo male brought in initially for lethargy and AMS. The patient has an extensive medical history that includes COPD, CHF last known EF of 30-35% in 2015, HTN, Paget's disease and PAD. The patient required intubation and ventilation once [place] [facility] [place] was extubated several days later. Remains extubated and feeling better. He is much more awake and alert today. No major complaints. He does complain of bilateral lower extremity pain. 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 Multiple chronic medical issues. No major specific complaints at this time. He needed physical therapy. Currently on the med-surg floor. He is growing Klebsiella and Staph Aureus sensitive to Cipro. No new issues. Objective - Vital Signs/Intake and Output Vital Signs (last 24 hours): Temp Pulse Resp BP Pulse Ox 98.0 F 60 14 145/65 99 06/26/17 16:08 06/26/17 17:17 06/26/17 16:08 06/26/17 17:17 06/26/17 10:06 Intake and Output: 06/26/17 06/26/17 06:59 18:59 Intake Total 300 Output Total 950 Balance -650 - Medications Medications: Current Medications Acetaminophen (Tylenol 325mg Tab) 650 mg PO Q6H PRN; Protocol PRN Reason: Pain, moderate (4-7) Last Admin: 06/25/17 21:02 Dose: 650 mg Albuterol/Ipratropium (Duoneb 3 Mg/0.5 Mg (3 Ml) Ud) 3 ml IH Q2H PRN; Protocol PRN Reason: Shortness of Breath Albuterol/Ipratropium (Duoneb 3 Mg/0.5 Mg (3 Ml) Ud) 3 ml IH [id number] [facility] PRN Reason: Protocol Last Admin: 06/26/17 13:08 Dose: 3 ml Aspirin (Ecotrin) 81 mg PO 0800 [facility] PRN Reason: Protocol Last Admin: 06/26/17 08:27 Dose: 81 mg Atorvastatin Calcium (Lipitor) 10 mg PO DIN [facility] PRN Reason: Protocol Last Admin: 06/26/17 17:15 Dose: 10 mg Clonidine HCl (Catapres) 0.1 mg PO Q8 PRN PRN Reason: Systolic Blood Pressure Ergocalciferol (Drisdol 50,000 Intl Units Cap) 1 cap PO SAT [facility] PRN Reason: Protocol Famotidine (Pepcid) 20 mg PO 1000,2200 [facility] Last Admin: 06/26/17 10:38 Dose: 20 mg Furosemide (Lasix) 40 mg PO QOTHERDAY [facility] Furosemide (Lasix) 20 mg PO QOTHERDAY [facility] Ciprofloxacin (Cipro 200mg/100ml D5w) 100 mls @ 67 mls/hr IVPB Q12 [facility] PRN Reason: Protocol Last Admin: 06/26/17 09:26 Dose: 67 mls/hr Isosorbide Mononitrate (Imdur) 60 mg PO DAILY [facility] PRN Reason: Protocol Last Admin: 06/26/17 09:27 Dose: Not Given Lactic Acid (Lac-Hydrin 12% Cream (140 G)) 0 ea TOP Q12 [facility] Last Admin: 06/26/17 10:39 Dose: 1 unit Metoprolol Tartrate (Lopressor) 50 mg PO 0800,1800 [facility] PRN Reason: Protocol Last Admin: 06/26/17 17:17 Dose: 50 mg Mupirocin (Bactroban Ointment) 0 gm TOP BID [facility] PRN Reason: Protocol Last Admin: 06/26/17 17:13 Dose: 1 applic Polyethylene Glycol (Miralax) 17 gm PO BID [facility] Last Admin: 06/26/17 17:17 Dose: Not Given Prednisone (Prednisone Tab) 20 mg PO DAILY [facility] Last Admin: 06/26/17 10:38 Dose: 20 mg Senna/Docusate Sodium (Senokot S 50 Mg-8.6 Mg) 1 tab PO BID [facility] PRN Reason: Protocol Last Admin: 06/26/17 17:18 Dose: Not Given Tamsulosin HCl (Flomax) 0.4 mg PO 1800 [facility] PRN Reason: Protocol Last Admin: 06/26/17 17:15 Dose: 0.4 mg - Labs Labs: 06/26/17 07:00 06/26/17 07:00 - Constitutional Appears: Chronically Ill - Head Exam Head Exam: ATRAUMATIC, NORMOCEPHALIC - Eye Exam Eye Exam: EOMI, PERRL Pupil Exam: NORMAL ACCOMODATION, PERRL - ENT Exam ENT Exam: Mucous Membranes Moist, Normal External Ear Exam, TM's Normal Bilaterally - Neck Exam Neck Exam: Full ROM, Normal Inspection - Respiratory Exam Respiratory Exam: Clear to Ausculation Bilateral, NORMAL BREATHING PATTERN. absent: Rales, Rhonchi, Wheezes - Cardiovascular Exam Cardiovascular Exam: REGULAR RHYTHM, RRR, +S1, +S2 - GI/Abdominal Exam GI & Abdominal Exam: Soft, Tenderness, Normal Bowel Sounds. absent: Distended - Extremities Exam Additional comments: +Heel protectors +Venous stasis skin changes B/L LE wrapped with curlex mild cellulitis of the bilateral lower extremities and chronic venous stasis. open ulcerations on the bilateral legs anteriorly. wounds are malodorous. now s/p debridement of the ulcerations. - Neurological Exam Neurological Exam: Alert, Awake, CN II-XII Intact, Oriented x3 - Psychiatric Exam Psychiatric exam: Normal Affect, Normal Mood - Skin Additional comments: As above. Assessment and Plan - Assessment and Plan (Free Text) Assessment: 87 yo male with AMS and lethargy. Etiology unclear. Broad spectrum coverage initially with Rocephin and Vancomycin treatment. Ignacio cultures. Imaging studies. Patient was intubated and ventilated but was extubated several days later. Overall improving. Supportive care. Obtain procalcitonin... which was 0.48 which is normal. Follow up WBC and fever trend. Urine drug screen positive for Benzodiazepine. Respiratory failure. Renal insufficiency (acute or chronic?). Patient has a history of hypertension and systolic congestive heart failure. Patient improving and is mentally back to his normal state at this time. His only complaint is of bilateral lower leg pains. Went to OR Sunday morning for debridement of unhealthy tissue of the legs. No additional issues. Cultures showing Staph Aureus and Klebsiella. The patient started on Cipro IV today. He will need 10 days of treatment although it does not have to be all by IV and can be finished with PO Cipro. He has been otherwise stable. Thank you for allowing me to participate in the care of the patient, we will follow with you.
[2017-06-26 18:46] LABS: BLOOD UREA NITROGEN 45 mg/dL (7-21); CALCIUM 8.3 mg/dL (8.4-10.5); CARBON DIOXIDE 34 mmol/L (21-33); CHLORIDE 105 mmol/L (98-107); GFR AFRICAN-AMERICAN > 60; GLUCOSE,RANDOM 129 mg/dL (70-110); SODIUM 145 mmol/L (132-148)
[2017-06-26 18:49] LABS: POTASSIUM 5.5 mmol/L (3.6-5.0)
[2017-06-26] MEDS ORDERED: Sod Polystyrene Sulf 15 gm/60 ml Oral Susp PO ONE (22:21)
[2017-06-27] MEDS: Albuterol-Ipratrop 3 mg / 0.5 (3 ml) UD IH SCH ×5 (01:13→19:57)
--- NOTE | 2017-06-27 08:26 | PN ---
DATE: 06/27/2017 SUBJECTIVE: The patient appears comfortable this morning. He is not short of breath at rest. PHYSICAL EXAMINATION VITAL SIGNS: Temperature is 98.0, pulse 60, respirations 16, blood pressure is 145/65. Oxygen saturation on nasal canula is 99%. HEENT: Normocephalic, atraumatic. NECK: No JVD. CARDIOVASCULAR: Systolic ejection murmur at the lower left sternal border. No S3 gallop. LUNGS: Minimal/less rhonchi. No wheezing. EXTREMITIES: Mild edema. No cyanosis, no clubbing. Calves are nontender to palpation. GASTROINTESTINAL: Abdomen is soft, nontender, nondistended. Bowel sounds are positive. SKIN: Less cellulitic changes - both lower extremities. NEUROLOGIC: Limited at the present time. IMPRESSION: 1. Status post respiratory failure. 2. Subacute cerebrovascular accident. 3. Chronic obstructive pulmonary disease. 4. Bilateral pneumonia. 5. Myocardial infarction. 6. Renal insufficiency. 7. Bilateral leg cellulitis. PLAN: The patient appears comfortable this morning. He is not short of breath at rest. He does states that he is feeling much better overall. On physical exam, his bronchospasm continues to resolve. In addition, the oxygen saturation on nasal cannula is now 99%. I will continue the current nebulizer treatments and low-dose oral steroids (decreased yesterday) for now. The patient remains on antibiotic therapy - as per Infectious Disease. There are no temperatures noted. The leukocytosis has resolved. Clinical status of the patient is significantly improved. I did discuss the case with the physical therapist yesterday. The patient is working very hard to get better. I will discuss the above with the attending physician. I also have daily discussions with the son. [place] MD MTDD
[2017-06-27] MEDS: POLYETHYLENE GLYCOL 3350 17 GM/Dose PACKET PO SCH ×2 (11:00→18:07)
[2017-06-27] MEDS: Ammonium Lactate 12% Cream (140 g) TOP SCH ×2 (11:00→21:38)
[2017-06-27] MEDS: Docusate-Senna 50 mg-8.6 mg Tab PO SCH ×2 (11:00→18:07)
[2017-06-27] MEDS: Ciprofloxacin 200mg/100ml D5W 100 ML IVPB SCH ×2 (11:34→21:37)
--- NOTE | 2017-06-27 14:44 | CP.PCM.PN ---
Subjective - Date & Time of Evaluation Date of Evaluation: 06/27/17 Time of Evaluation: 14:20 - Subjective Subjective: Infectious Disease Follow Up: June 27, 2017 87 yo male brought in initially for lethargy and AMS. The patient has an extensive medical history that includes COPD, CHF last known EF of 30-35% in 2015, HTN, Paget's disease and PAD. The patient required intubation and ventilation once arriving in [facility] [place]. He was extubated several days later. Remains extubated and feeling better. He is much more awake and alert today. No major complaints. He does complain of bilateral lower extremity pain. 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 Multiple chronic medical issues. No major specific complaints at this time. He needed physical therapy. Currently on the med-surg floor. He is growing Klebsiella and Staph Aureus sensitive to Cipro. No new issues. Objective - Vital Signs/Intake and Output Vital Signs (last 24 hours): Temp Pulse Resp BP Pulse Ox 98.2 F 73 20 136/69 95 06/27/17 10:53 06/27/17 10:53 06/27/17 10:53 06/27/17 11:35 06/27/17 10:53 - Medications Medications: Current Medications Acetaminophen (Tylenol 325mg Tab) 650 mg PO Q6H PRN; Protocol PRN Reason: Pain, moderate (4-7) Last Admin: 06/27/17 01:44 Dose: 650 mg Albuterol/Ipratropium (Duoneb 3 Mg/0.5 Mg (3 Ml) Ud) 3 ml IH Q2H PRN; Protocol PRN Reason: Shortness of Breath Albuterol/Ipratropium (Duoneb 3 Mg/0.5 Mg (3 Ml) Ud) 3 ml IH [id number] [facility] PRN Reason: Protocol Last Admin: 06/27/17 13:08 Dose: 3 ml Aspirin (Ecotrin) 81 mg PO 0800 [facility] PRN Reason: Protocol Last Admin: 06/27/17 08:36 Dose: 81 mg Atorvastatin Calcium (Lipitor) 10 mg PO DIN [facility] PRN Reason: Protocol Last Admin: 06/26/17 17:15 Dose: 10 mg Clonidine HCl (Catapres) 0.1 mg PO Q8 PRN PRN Reason: Systolic Blood Pressure Ergocalciferol (Drisdol 50,000 Intl Units Cap) 1 cap PO SAT [facility]S [facility] PRN Reason: Protocol Famotidine (Pepcid) 20 mg PO 1000,2200 [facility]S [facility] 234 [facility]S [facility] Last Admin: 06/27/17 11:00 Dose: 20 mg Furosemide (Lasix) 40 mg PO QOTHERDAY [facility]S [facility]CLUDE 234 [facility]S AT [facility] Last Admin: 06/27/17 11:35 Dose: 40 mg Furosemide (Lasix) 20 mg PO QOTHERDAY [facility]S [facility]CLUDE 234 [facility]S AT [facility] Ciprofloxacin (Cipro 200mg/100ml D5w) 100 mls @ 67 mls/hr IVPB Q12 [facility] PRN Reason: Protocol Last Admin: 06/27/17 11:34 Dose: 67 mls/hr Isosorbide Mononitrate (Imdur) 60 mg PO DAILY [facility] 234 [facility]S [facility] PRN Reason: Protocol Last Admin: 06/27/17 11:00 Dose: 60 mg Lactic Acid (Lac-Hydrin 12% Cream (140 G)) 0 ea TOP Q12 [facility] 234 [facility]S [facility] Last Admin: 06/27/17 11:00 Dose: 1 dose Metoprolol Tartrate (Lopressor) 50 mg PO 0800,1800 [facility] 234 [facility] PRN Reason: Protocol Last Admin: 06/27/17 08:36 Dose: Not Given Mupirocin (Bactroban Ointment) 0 gm TOP BID [facility] 234 [facility] PRN Reason: Protocol Last Admin: 06/27/17 11:00 Dose: 1 applic Polyethylene Glycol (Miralax) 17 gm PO BID [facility] 234 [facility] Last Admin: 06/27/17 11:00 Dose: Not Given Prednisone (Prednisone Tab) 20 mg PO DAILY [facility] 234 [facility] Last Admin: 06/27/17 11:00 Dose: 20 mg Senna/Docusate Sodium (Senokot S 50 Mg-8.6 Mg) 1 tab PO BID [facility] 234 [facility]S [facility] PRN Reason: Protocol Last Admin: 06/27/17 11:00 Dose: 1 tab Tamsulosin HCl (Flomax) 0.4 mg PO 1800 [facility] 234 [facility] PRN Reason: Protocol Last Admin: 06/26/17 17:15 Dose: 0.4 mg - Labs Labs: 06/26/17 07:00 06/26/17 18:25 - Constitutional Appears: Non-toxic, No Acute Distress, Chronically Ill - Head Exam Head Exam: ATRAUMATIC, NORMOCEPHALIC - Eye Exam Eye Exam: EOMI, PERRL Pupil Exam: NORMAL ACCOMODATION, PERRL - ENT Exam ENT Exam: Mucous Membranes Moist, Normal External Ear Exam, TM's Normal Bilaterally - Neck Exam Neck Exam: Full ROM, Normal Inspection - Respiratory Exam Respiratory Exam: Clear to Ausculation Bilateral, NORMAL BREATHING PATTERN. absent: Rales, Rhonchi, Wheezes - Cardiovascular Exam Cardiovascular Exam: REGULAR RHYTHM, RRR, +S1, +S2 - GI/Abdominal Exam GI & Abdominal Exam: Soft, Normal Bowel Sounds. absent: Distended, Tenderness - Extremities Exam Additional comments: +Heel protectors +Venous stasis skin changes B/L LE wrapped with curlex mild cellulitis of the bilateral lower extremities and chronic venous stasis. open ulcerations on the bilateral legs anteriorly. wounds are malodorous. now s/p debridement of the ulcerations. - Neurological Exam Neurological Exam: Alert, Awake, CN II-XII Intact, Oriented x3 - Psychiatric Exam Psychiatric exam: Normal Affect, Normal Mood - Skin Skin Exam: Intact, Normal Color Assessment and Plan - Assessment and Plan (Free Text) Assessment: 87 yo male with AMS and lethargy. Etiology unclear. Broad spectrum coverage initially with Rocephin and Vancomycin treatment. Ignacio cultures. Imaging studies. Patient was intubated and ventilated but was extubated several days later. Overall improving. Supportive care. Obtain procalcitonin... which was 0.48 which is normal. Follow up WBC and fever trend. Urine drug screen positive for Benzodiazepine. Respiratory failure. Renal insufficiency (acute or chronic?). Patient has a history of hypertension and systolic congestive heart failure. Patient improving and is mentally back to his normal state at this time. His only complaint is of bilateral lower leg pains. Went to OR Sunday morning for debridement of unhealthy tissue of the legs. No additional issues. Cultures showing Staph Aureus and Klebsiella. The patient started on Cipro IV today. He will need 10 days of treatment although it does not have to be all by IV and can be finished with PO Cipro. He has been otherwise stable. Thank you for allowing me to participate in the care of the patient, we will follow with you.
--- NOTE | 2017-06-27 16:04 | CP.PCM.PN ---
<Renae Kaur - Last Filed: 06/27/17 16:02> Subjective - Date & Time of Evaluation Date of Evaluation: 06/27/17 Time of Evaluation: 16:02 - Subjective Subjective: 87 y/o male seen at bedside today in TCU with attending Dr. Buitrago 7 days s/p right leg wound debridement. Patient is seen resting comfortably in bed and is in good spirits. Patient is noticing improvements in his mobility with physical therapy and is not experiencing significant pain at this time. Patient denies N/ V/F/D/C/SOB/calf pain. No other pedal complaints at this time. Objective - Vital Signs/Intake and Output Vital Signs (last 24 hours): Temp Pulse Resp BP Pulse Ox 98.2 F 73 20 136/69 95 06/27/17 10:53 06/27/17 10:53 06/27/17 10:53 06/27/17 11:35 06/27/17 10:53 - Medications Medications: Current Medications Acetaminophen (Tylenol 325mg Tab) 650 mg PO Q6H PRN; Protocol PRN Reason: Pain, moderate (4-7) Last Admin: 06/27/17 01:44 Dose: 650 mg Albuterol/Ipratropium (Duoneb 3 Mg/0.5 Mg (3 Ml) Ud) 3 ml IH Q2H PRN; Protocol PRN Reason: Shortness of Breath Albuterol/Ipratropium (Duoneb 3 Mg/0.5 Mg (3 Ml) Ud) 3 ml IH [id number] [facility] PRN Reason: Protocol Last Admin: 06/27/17 13:08 Dose: 3 ml Aspirin (Ecotrin) 81 mg PO 0800 [facility] PRN Reason: Protocol Last Admin: 06/27/17 08:36 Dose: 81 mg Atorvastatin Calcium (Lipitor) 10 mg PO DIN [facility] PRN Reason: Protocol Last Admin: 06/26/17 17:15 Dose: 10 mg Clonidine HCl (Catapres) 0.1 mg PO Q8 PRN PRN Reason: Systolic Blood Pressure Ergocalciferol (Drisdol 50,000 Intl Units Cap) 1 cap PO SAT [facility] PRN Reason: Protocol Famotidine (Pepcid) 20 mg PO 1000,2200 [facility] Last Admin: 06/27/17 11:00 Dose: 20 mg Furosemide (Lasix) 40 mg PO QOTHERDAY [facility] Last Admin: 06/27/17 11:35 Dose: 40 mg Furosemide (Lasix) 20 mg PO QOTHERDAY [facility] Ciprofloxacin (Cipro 200mg/100ml D5w) 100 mls @ 67 mls/hr IVPB Q12 [facility] PRN Reason: Protocol Last Admin: 06/27/17 11:34 Dose: 67 mls/hr Isosorbide Mononitrate (Imdur) 60 mg PO DAILY [facility] PRN Reason: Protocol Last Admin: 06/27/17 11:00 Dose: 60 mg Lactic Acid (Lac-Hydrin 12% Cream (140 G)) 0 ea TOP Q12 [facility] Last Admin: 06/27/17 11:00 Dose: 1 dose Metoprolol Tartrate (Lopressor) 50 mg PO 0800,1800 [facility] PRN Reason: Protocol Last Admin: 06/27/17 08:36 Dose: Not Given Mupirocin (Bactroban Ointment) 0 gm TOP BID [facility] PRN Reason: Protocol Last Admin: 06/27/17 11:00 Dose: 1 applic Polyethylene Glycol (Miralax) 17 gm PO BID [facility] Last Admin: 06/27/17 11:00 Dose: Not Given Prednisone (Prednisone Tab) 20 mg PO DAILY [facility] Last Admin: 06/27/17 11:00 Dose: 20 mg Senna/Docusate Sodium (Senokot S 50 Mg-8.6 Mg) 1 tab PO BID [facility] PRN Reason: Protocol Last Admin: 06/27/17 11:00 Dose: 1 tab Tamsulosin HCl (Flomax) 0.4 mg PO 1800 [facility] PRN Reason: Protocol Last Admin: 06/26/17 17:15 Dose: 0.4 mg - Labs Labs: 06/26/17 07:00 06/26/17 18:25 - Constitutional Appears: Well, Non-toxic, No Acute Distress - Extremities Exam Additional comments: Bilateral lower extremity examination: Vasc: Palpable DP and PT pulses are noted 1/4 bilaterally. CFT < 3 seconds noted to all digits Derm: Right: Open ulcerations to anterior and lateral aspect of leg measuring 10cm x 4cm x 0.2cm with granular base. Minimal serosanguinous drainage is noted. Decreasing erythema, no purulence, no malodor. Left: Open ulcerations to anterior aspect of leg measuring 9cm x 4cm x 0.2cm with a mixed fibrogranular base. Mild serosanguinous drainage is noted. No malodor, no purulence. Mild erythema noted to wound periphery. - Neurological Exam Neurological Exam: Alert, Awake, Oriented x3 - Psychiatric Exam Psychiatric exam: Normal Affect, Normal Mood Assessment and Plan - Assessment and Plan (Free Text) Assessment: 87 yo male patient with venous stasis ulcerations to anterior aspect of bilateral legs (R>L) 7 days s/p right leg wound debridement Plan: Patient was seen and evaluated at bedside with attending Dr. Buitrago Chart, labs and vitals reviewed - afebrile, WBC WNL at 9.3 Bilateral legs dressed with optifoam, tubigrip- please remove at nighttime before bed and reapply in AM Lac Hydrin to be applied to humble wound areas on bilateral legs BID Continue IV / oral Cipro as per ID as patient is growing S. aureus and Klebsiella Podiatry will continue to follow in-house <Siri Buitrago - Last Filed: 06/29/17 13:28> Objective - Vital Signs/Intake and Output Vital Signs (last 24 hours): Temp Pulse Resp BP Pulse Ox 98.5 F 61 20 132/75 99 06/29/17 10:00 06/29/17 10:00 06/29/17 10:00 06/29/17 10:36 06/28/17 16:00 Intake and Output: 06/29/17 06/29/17 06:59 18:59 Intake Total 420 Output Total 1475 Balance -1055 - Medications Medications: Current Medications Acetaminophen (Tylenol 325mg Tab) 650 mg PO Q6H PRN; Protocol PRN Reason: Pain, moderate (4-7) Last Admin: 06/29/17 08:05 Dose: 650 mg Albuterol/Ipratropium (Duoneb 3 Mg/0.5 Mg (3 Ml) Ud) 3 ml IH Q2H PRN; Protocol PRN Reason: Shortness of Breath Albuterol/Ipratropium (Duoneb 3 Mg/0.5 Mg (3 Ml) Ud) 3 ml IH [id number] [facility] PRN Reason: Protocol Last Admin: 06/29/17 13:21 Dose: 3 ml Aspirin (Ecotrin) 81 mg PO 0800 [facility] PRN Reason: Protocol Last Admin: 06/29/17 08:07 Dose: 81 mg Atorvastatin Calcium (Lipitor) 10 mg PO DIN [facility] PRN Reason: Protocol Last Admin: 06/28/17 18:07 Dose: 10 mg Clonidine HCl (Catapres) 0.1 mg PO Q8 PRN PRN Reason: Systolic Blood Pressure Ergocalciferol (Drisdol 50,000 Intl Units Cap) 1 cap PO SAT [facility] PRN Reason: Protocol Famotidine (Pepcid) 20 mg PO 1000,2200 [facility] Last Admin: 06/29/17 10:38 Dose: 20 mg Furosemide (Lasix) 40 mg PO QOTHERDAY [facility] Last Admin: 06/29/17 10:36 Dose: 40 mg Furosemide (Lasix) 20 mg PO QOTHERDAY [facility] Last Admin: 06/28/17 11:09 Dose: 20 mg Isosorbide Mononitrate (Imdur) 60 mg PO DAILY [facility] PRN Reason: Protocol Last Admin: 06/29/17 10:34 Dose: 60 mg Lactic Acid (Lac-Hydrin 12% Cream (140 G)) 0 ea TOP Q12 [facility] Last Admin: 06/29/17 11:44 Dose: 1 dose Metoprolol Tartrate (Lopressor) 50 mg PO 0800,1800 [facility] PRN Reason: Protocol Last Admin: 06/29/17 08:07 Dose: 50 mg Mupirocin (Bactroban Ointment) 0 gm TOP BID [facility] PRN Reason: Protocol Last Admin: 06/29/17 10:33 Dose: 1 applic Polyethylene Glycol (Miralax) 17 gm PO BID [facility] Last Admin: 06/29/17 10:36 Dose: 17 gm Prednisone (Prednisone Tab) 20 mg PO DAILY [facility] Last Admin: 06/29/17 10:38 Dose: 20 mg Senna/Docusate Sodium (Senokot S 50 Mg-8.6 Mg) 1 tab PO BID [facility] PRN Reason: Protocol Last Admin: 06/29/17 10:38 Dose: 1 tab Tamsulosin HCl (Flomax) 0.4 mg PO 1800 [facility] PRN Reason: Protocol Last Admin: 06/28/17 18:07 Dose: 0.4 mg - Labs Labs: 06/28/17 07:50 06/28/17 07:50 Attending/Attestation - Attestation I have personally seen and examined this patient.: Yes I have fully participated in the care of the patient.: Yes I have reviewed all pertinent clinical information, including history, physical exam and plan: Yes
[2017-06-28] MEDS: Albuterol-Ipratrop 3 mg / 0.5 (3 ml) UD IH SCH ×4 (01:21→20:42)
--- NOTE | 2017-06-28 07:51 | PN ---
DATE: 06/28/2017 SUBJECTIVE: The patient appears comfortable this morning. He is not short of breath at rest. PHYSICAL EXAMINATION: VITAL SIGNS: Temperature is 98.0, pulse 60, respirations 18, blood pressure 113/77. Oxygen saturation on nasal cannula is 98%. HEENT: Normocephalic and atraumatic. NECK: No JVD. CARDIOVASCULAR: Systolic ejection murmur at the lower left sternal border. No S3 gallop. LUNGS: Much less/minimal rhonchi. No wheezing. EXTREMITIES: Mild edema. No cyanosis, no clubbing. Calves are nontender to palpation. GASTROINTESTINAL: Abdomen is soft, nontender, and nondistended. Bowel sounds are positive. SKIN: Less cellulitic changes-both lower extremities. NEUROLOGIC: Limited at the present time. IMPRESSION: 1. Status post respiratory failure. 2. Subacute cerebrovascular accident. 3. Chronic obstructive pulmonary disease. 4. Bilateral pneumonia. 5. Myocardial infarction. 6. Renal insufficiency. 7. Bilateral leg cellulitis. PLAN: The patient appears comfortable this morning. He is not short of breath at rest. He does state that he is feeling much better overall. On physical exam, his bronchospasm continues to slowly resolve. In addition, the oxygen saturation on nasal cannula is now 98%. I will continue with the current nebulizer treatments and low-dose oral steroids for now. The patient remains on antibiotic therapy-as per infectious disease. Input by Dr. Martin is noted. There are no temperatures noted. The leukocytosis has resolved. Clinical status of the patient is significantly improved. He continues to participate with physical therapy. I will discuss the above with the attending physician. [place] MD MTDD
[2017-06-28 08:01] LABS: EOS # 0.1 (0.0-0.7); EOS % 1.3 % (1.5-5.0); GRAN # 8.24 (1.4-6.5); GRAN % 79.8 % (50.0-68.0); HEMATOCRIT 35.3 % (42.0-52.0); LYMPH # 1.2 (1.2-3.4); LYMPH % 11.1 % (22.0-35.0); MEAN CELL VOLUME 92.7 fl (80.0-105.0); MEAN CORPUSCULAR HEMOGLOBIN 28.9 pg (25.0-35.0); MEAN CORPUSCULAR HGB CONC 31.2 g/dl (31.0-37.0); MEAN PLATELET VOLUME 11.5 fl (7.0-11.0); MONO # 0.8 (0.1-0.6); MONO % 7.8 % (1.0-6.0); WHITE BLOOD COUNT 10.3 10^3/ul (4.5-11.0)
[2017-06-28 08:12] LABS: ALKALINE PHOSPHATASE 140 U/L (38-126); ALT/SGPT 28 U/L (7-56); AST/SGOT 23 U/L (17-59); BILIRUBIN,TOTAL 1.2 mg/dL (0.2-1.3); BLOOD UREA NITROGEN 35 mg/dL (7-21); CARBON DIOXIDE 38 mmol/L (21-33); CHLORIDE 104 mmol/L (98-107); GFR AFRICAN-AMERICAN > 60; GLUCOSE,RANDOM 74 mg/dL (70-110); POTASSIUM 4.2 mmol/L (3.6-5.0); SODIUM 145 mmol/L (132-148); TOTAL PROTEIN 5.4 g/dL (5.8-8.3)
[2017-06-28] MEDS: Ciprofloxacin 200mg/100ml D5W 100 ML IVPB SCH (11:04)
--- NOTE | 2017-06-28 11:04 | CP.PCM.PN ---
<Renae Kaur - Last Filed: 06/28/17 11:01> Subjective - Date & Time of Evaluation Date of Evaluation: 06/28/17 Time of Evaluation: 11:01 - Subjective Subjective: 87 y/o male seen at bedside today in TCU 8 days s/p right leg wound debridement. Patient is seen resting comfortably in bed and is in good spirits. Patient is noticing improvements in his mobility with physical therapy and is not experiencing significant pain at this time. Patient denies N/V/F/D/C/SOB/ calf pain. No other pedal complaints at this time. Objective - Vital Signs/Intake and Output Vital Signs (last 24 hours): Temp Pulse Resp BP Pulse Ox 98 F 64 18 121/72 98 06/27/17 16:18 06/28/17 08:09 06/27/17 16:18 06/28/17 08:09 06/27/17 16:18 Intake and Output: 06/28/17 06/28/17 06:59 18:59 Output Total 500 Balance -500 - Medications Medications: Current Medications Acetaminophen (Tylenol 325mg Tab) 650 mg PO Q6H PRN; Protocol PRN Reason: Pain, moderate (4-7) Last Admin: 06/27/17 01:44 Dose: 650 mg Albuterol/Ipratropium (Duoneb 3 Mg/0.5 Mg (3 Ml) Ud) 3 ml IH Q2H PRN; Protocol PRN Reason: Shortness of Breath Albuterol/Ipratropium (Duoneb 3 Mg/0.5 Mg (3 Ml) Ud) 3 ml IH [id number] [facility] PRN Reason: Protocol Last Admin: 06/28/17 07:12 Dose: 3 ml Aspirin (Ecotrin) 81 mg PO 0800 [facility] PRN Reason: Protocol Last Admin: 06/28/17 08:09 Dose: 81 mg Atorvastatin Calcium (Lipitor) 10 mg PO DIN [facility] PRN Reason: Protocol Last Admin: 06/27/17 18:00 Dose: 10 mg Clonidine HCl (Catapres) 0.1 mg PO Q8 PRN PRN Reason: Systolic Blood Pressure Ergocalciferol (Drisdol 50,000 Intl Units Cap) 1 cap PO SAT [facility] PRN Reason: Protocol Famotidine (Pepcid) 20 mg PO 1000,2200 [facility] Last Admin: 06/27/17 21:39 Dose: 20 mg Furosemide (Lasix) 40 mg PO QOTHERDAY [facility] Last Admin: 06/27/17 11:35 Dose: 40 mg Furosemide (Lasix) 20 mg PO QOTHERDAY [facility] Ciprofloxacin (Cipro 200mg/100ml D5w) 100 mls @ 67 mls/hr IVPB Q12 [facility] PRN Reason: Protocol Last Admin: 06/27/17 21:37 Dose: 67 mls/hr Isosorbide Mononitrate (Imdur) 60 mg PO DAILY [facility] PRN Reason: Protocol Last Admin: 06/27/17 11:00 Dose: 60 mg Lactic Acid (Lac-Hydrin 12% Cream (140 G)) 0 ea TOP Q12 [facility] Last Admin: 06/27/17 21:38 Dose: 1 dose Metoprolol Tartrate (Lopressor) 50 mg PO 0800,1800 [facility] PRN Reason: Protocol Last Admin: 06/28/17 08:09 Dose: 50 mg Mupirocin (Bactroban Ointment) 0 gm TOP BID [facility] PRN Reason: Protocol Last Admin: 06/27/17 18:02 Dose: 1 applic Polyethylene Glycol (Miralax) 17 gm PO BID [facility] Last Admin: 06/27/17 18:07 Dose: Not Given Prednisone (Prednisone Tab) 20 mg PO DAILY [facility] Last Admin: 06/27/17 11:00 Dose: 20 mg Senna/Docusate Sodium (Senokot S 50 Mg-8.6 Mg) 1 tab PO BID [facility] PRN Reason: Protocol Last Admin: 06/27/17 18:07 Dose: 1 tab Tamsulosin HCl (Flomax) 0.4 mg PO 1800 [facility] PRN Reason: Protocol Last Admin: 06/27/17 18:02 Dose: 0.4 mg - Labs Labs: 06/28/17 07:50 06/28/17 07:50 - Constitutional Appears: Well, Non-toxic, No Acute Distress - Extremities Exam Additional comments: Bilateral lower extremity examination: Vasc: Palpable DP and PT pulses are noted 1/4 bilaterally. CFT < 3 seconds noted to all digits Derm: Right: Open ulcerations to anterior and lateral aspect of leg measuring 10cm x 4cm x 0.2cm with granular base. Minimal serosanguinous drainage is noted. Decreasing erythema, no purulence, no malodor. Left: Open ulcerations to anterior aspect of leg measuring 9cm x 4cm x 0.2cm with a mixed fibrogranular base. Mild serosanguinous drainage is noted. No malodor, no purulence. Mild erythema noted to wound periphery. - Psychiatric Exam Psychiatric exam: Normal Affect, Normal Mood Assessment and Plan - Assessment and Plan (Free Text) Assessment: 87 yo male patient with venous stasis ulcerations to anterior aspect of bilateral legs (R>L) 8 days s/p right leg wound debridement Plan: Patient was seen and evaluated at bedside with attending Dr. Buitrago Chart, labs and vitals reviewed - afebrile, WBC WNL at 10.3 Bilateral legs dressed with maxorb, optifoam, tubigrip- please remove at nighttime before bed and reapply in AM Lac Hydrin to be applied to humble wound areas on bilateral legs BID Continue IV / oral Cipro as per ID as patient is growing S. aureus and Klebsiella Podiatry will continue to follow in-house <Siri Buitrago - Last Filed: 06/29/17 13:28> Objective - Vital Signs/Intake and Output Vital Signs (last 24 hours): Temp Pulse Resp BP Pulse Ox 98.5 F 61 20 132/75 99 06/29/17 10:00 06/29/17 10:00 06/29/17 10:00 06/29/17 10:36 06/28/17 16:00 Intake and Output: 06/29/17 06/29/17 06:59 18:59 Intake Total 420 Output Total 1475 Balance -1055 - Medications Medications: Current Medications Acetaminophen (Tylenol 325mg Tab) 650 mg PO Q6H PRN; Protocol PRN Reason: Pain, moderate (4-7) Last Admin: 06/29/17 08:05 Dose: 650 mg Albuterol/Ipratropium (Duoneb 3 Mg/0.5 Mg (3 Ml) Ud) 3 ml IH Q2H PRN; Protocol PRN Reason: Shortness of Breath Albuterol/Ipratropium (Duoneb 3 Mg/0.5 Mg (3 Ml) Ud) 3 ml IH [id number] [facility] PRN Reason: Protocol Last Admin: 06/29/17 13:21 Dose: 3 ml Aspirin (Ecotrin) 81 mg PO 0800 [facility] PRN Reason: Protocol Last Admin: 06/29/17 08:07 Dose: 81 mg Atorvastatin Calcium (Lipitor) 10 mg PO DIN [facility] PRN Reason: Protocol Last Admin: 06/28/17 18:07 Dose: 10 mg Clonidine HCl (Catapres) 0.1 mg PO Q8 PRN PRN Reason: Systolic Blood Pressure Ergocalciferol (Drisdol 50,000 Intl Units Cap) 1 cap PO SAT [facility] PRN Reason: Protocol Famotidine (Pepcid) 20 mg PO 1000,2200 [facility] Last Admin: 06/29/17 10:38 Dose: 20 mg Furosemide (Lasix) 40 mg PO QOTHERDAY [facility] Last Admin: 06/29/17 10:36 Dose: 40 mg Furosemide (Lasix) 20 mg PO QOTHERDAY [facility] Last Admin: 06/28/17 11:09 Dose: 20 mg Isosorbide Mononitrate (Imdur) 60 mg PO DAILY [facility] PRN Reason: Protocol Last Admin: 06/29/17 10:34 Dose: 60 mg Lactic Acid (Lac-Hydrin 12% Cream (140 G)) 0 ea TOP Q12 [facility] Last Admin: 06/29/17 11:44 Dose: 1 dose Metoprolol Tartrate (Lopressor) 50 mg PO 0800,1800 [facility] PRN Reason: Protocol Last Admin: 06/29/17 08:07 Dose: 50 mg Mupirocin (Bactroban Ointment) 0 gm TOP BID [facility] PRN Reason: Protocol Last Admin: 06/29/17 10:33 Dose: 1 applic Polyethylene Glycol (Miralax) 17 gm PO BID [facility] Last Admin: 06/29/17 10:36 Dose: 17 gm Prednisone (Prednisone Tab) 20 mg PO DAILY [facility] Last Admin: 06/29/17 10:38 Dose: 20 mg Senna/Docusate Sodium (Senokot S 50 Mg-8.6 Mg) 1 tab PO BID [facility] PRN Reason: Protocol Last Admin: 06/29/17 10:38 Dose: 1 tab Tamsulosin HCl (Flomax) 0.4 mg PO 1800 [facility] PRN Reason: Protocol Last Admin: 06/28/17 18:07 Dose: 0.4 mg - Labs Labs: 06/28/17 07:50 06/28/17 07:50 Attending/Attestation - Attestation I have personally seen and examined this patient.: Yes I have fully participated in the care of the patient.: Yes I have reviewed all pertinent clinical information, including history, physical exam and plan: Yes
[2017-06-28] MEDS: Ammonium Lactate 12% Cream (140 g) TOP SCH ×2 (11:08→21:41)
[2017-06-28] MEDS: Docusate-Senna 50 mg-8.6 mg Tab PO SCH ×2 (11:10→18:08)
[2017-06-28] MEDS: POLYETHYLENE GLYCOL 3350 17 GM/Dose PACKET PO SCH ×2 (11:10→18:08)
[2017-06-28 11:29] LABS: MAGNESIUM 1.7 mg/dL (1.7-2.2); PHOSPHOROUS 2.5 mg/dL (2.5-4.5)
--- NOTE | 2017-06-28 12:27 | CP.PCM.PN ---
<JACINTOZEINABTYRA - Last Filed: 06/28/17 12:36> Subjective - Date & Time of Evaluation Date of Evaluation: 06/28/17 Time of Evaluation: 07:30 - Subjective Subjective: Gentry Jones DO PGY1 - Internal Medicine Progress Note Patient seen and examined at bedside in TCU. Nurses report that they removed his swanson this morning for a voiding trial, but otherwise, no events overnight. Patient now denies any CP, SOB, N/V/D, abdominal pain, bloating, and is no longer having pain in his feet. He was seen ambulating with physical therapy. Objective - Vital Signs/Intake and Output Vital Signs (last 24 hours): Temp Pulse Resp BP Pulse Ox 98.4 F 62 18 133/71 98 06/28/17 11:17 06/28/17 11:17 06/28/17 11:17 06/28/17 11:17 06/28/17 11:17 Intake and Output: 06/28/17 06/28/17 06:59 18:59 Output Total 500 Balance -500 - Medications Medications: Current Medications Acetaminophen (Tylenol 325mg Tab) 650 mg PO Q6H PRN; Protocol PRN Reason: Pain, moderate (4-7) Last Admin: 06/27/17 01:44 Dose: 650 mg Albuterol/Ipratropium (Duoneb 3 Mg/0.5 Mg (3 Ml) Ud) 3 ml IH Q2H PRN; Protocol PRN Reason: Shortness of Breath Albuterol/Ipratropium (Duoneb 3 Mg/0.5 Mg (3 Ml) Ud) 3 ml IH [id number] TOMER PRN Reason: Protocol Last Admin: 06/28/17 07:12 Dose: 3 ml Aspirin (Ecotrin) 81 mg PO 0800 [facility] PRN Reason: Protocol Last Admin: 06/28/17 08:09 Dose: 81 mg Atorvastatin Calcium (Lipitor) 10 mg PO DIN [facility] PRN Reason: Protocol Last Admin: 06/27/17 18:00 Dose: 10 mg Ciprofloxacin (Cipro) 500 mg PO Q12 [facility] PRN Reason: Protocol Stop: 06/29/17 11:28 Clonidine HCl (Catapres) 0.1 mg PO Q8 PRN PRN Reason: Systolic Blood Pressure Ergocalciferol (Drisdol 50,000 Intl Units Cap) 1 cap PO SAT [facility] PRN Reason: Protocol Famotidine (Pepcid) 20 mg PO 1000,2200 [facility] Last Admin: 06/28/17 11:42 Dose: 20 mg Furosemide (Lasix) 40 mg PO QOTHERDAY [facility] Last Admin: 06/27/17 11:35 Dose: 40 mg Furosemide (Lasix) 20 mg PO QOTHERDAY [facility] Last Admin: 06/28/17 11:09 Dose: 20 mg Isosorbide Mononitrate (Imdur) 60 mg PO DAILY [facility] PRN Reason: Protocol Last Admin: 06/28/17 11:08 Dose: 60 mg Lactic Acid (Lac-Hydrin 12% Cream (140 G)) 0 ea TOP Q12 [facility] Last Admin: 06/28/17 11:08 Dose: 1 dose Metoprolol Tartrate (Lopressor) 50 mg PO 0800,1800 [facility] PRN Reason: Protocol Last Admin: 06/28/17 08:09 Dose: 50 mg Mupirocin (Bactroban Ointment) 0 gm TOP BID [facility] PRN Reason: Protocol Last Admin: 06/28/17 11:03 Dose: 1 applic Polyethylene Glycol (Miralax) 17 gm PO BID [facility] Last Admin: 06/28/17 11:10 Dose: 17 gm Prednisone (Prednisone Tab) 20 mg PO DAILY [facility] Last Admin: 06/28/17 11:10 Dose: 20 mg Senna/Docusate Sodium (Senokot S 50 Mg-8.6 Mg) 1 tab PO BID [facility] PRN Reason: Protocol Last Admin: 06/28/17 11:10 Dose: 1 tab Tamsulosin HCl (Flomax) 0.4 mg PO 1800 [facility] PRN Reason: Protocol Last Admin: 06/27/17 18:02 Dose: 0.4 mg - Labs Labs: 06/28/17 07:50 06/28/17 07:50 - Constitutional Appears: Non-toxic, No Acute Distress, Chronically Ill - Head Exam Head Exam: ATRAUMATIC, NORMOCEPHALIC - Eye Exam Eye Exam: EOMI, PERRL - ENT Exam ENT Exam: Mucous Membranes Moist - Neck Exam Neck Exam: absent: Lymphadenopathy, Thyromegaly - Respiratory Exam Respiratory Exam: Clear to Ausculation Bilateral, NORMAL BREATHING PATTERN - Cardiovascular Exam Cardiovascular Exam: RRR, +S1, +S2 - GI/Abdominal Exam GI & Abdominal Exam: Soft. absent: Tenderness - Extremities Exam Additional comments: B/L UE echymoses, healing B/L LE now only dressed with topical antibiotics and optiform - Back Exam Back Exam: absent: CVA tenderness (L), CVA tenderness (R) - Neurological Exam Neurological Exam: Alert, Awake, Oriented x3 Neuro motor strength exam: Left Upper Extremity: 5, Right Upper Extremity: 5, Left Lower Extremity: 5, Right Lower Extremity: 5 - Psychiatric Exam Psychiatric exam: Normal Affect, Normal Mood - Skin Skin Exam: Dry, Intact Additional comments: Except as noted on extremities exam Assessment and Plan - Assessment and Plan (Free Text) Assessment: 87 yo M with PMH of COPD, CHF with LVEF 17%, Paget's disease, and HTN who initially presented with AMS and hypercapnic respiratory failure requiring intubation/mechanical ventilation. Remains on AvyCaz for b/l LE MRSA cellulitis. Now with azotemia, in the setting of CHF with diffuse edema and borderline fluid overload. Admitted to TCU for deconditioning and weakness. Plan: 1. Deconditioning and weakness - Continue daily physical therapy 2. Acute Hypercapnic Respiratory Failure: Resolved -2/2 CHF exacerbation in setting of NSTEMI/demand ischemia -2/2 severe COPD, now s/p extubation a week ago -Switched to PO steroids, now on Prednisone 20 - tapering down slowly - Nebs Q6H tomer/Q2 prn, as per Pulm -Satting well on O2 NC, maintain SaO2 88-95%, avoid persistently elevated SaO2 to prevent suppression of respiratory drive in COPD pt -Will require home O2 -Cardio (Santa), Neuro (Cindi Castro), and Pulm (Jayy) consulted, appreciate all recs 3. Altered Mental Status: Resolved -2/2 Hypercapnic resp failure vs Sepsis from LE cellulitis vs ACS -Head CT: small hypodense lacunar infarct within the left cerebellar lobe, considered to be subacute -UDS (+) benzos, no benzos listed in home medication charting -MRI showing chronic microvascular changes, MRA unremarkable -EEG completed, significant for diffuse slowing "drowsy". Was done when sedated. -Blood cx showing no growth x 5 days, urine cx no growth 4. MRSA cellulitis, b/l leg -Wound cxs: +MRSA, Right leg WCX: E.Coli, Staph. Aureus (Resistant to PCN but Oxa sensitive); Left leg WCX: Klebsella Oxytosa, Staph Aureus -Continue Ciprofloxacin (d8) per ID for 10 day course -ID (Mario) and Podiatry (Iftikhar) consulted, appreciate all recs -Patient is s/p for debridement of RLE wound nonviable tissue with podiatry 5. NSTEMI -Troponins peaked at 1.16, plateued and then trended down -Continue conservative management, no stress test at this time per cardio. Previously on heparin drip, discontinued after 48hrs -Continue Metoprolol, Imdur, Cozaar, Statin, ASA, Plavix, lipitor 6. Chronic venous stasis ulceration -B/L lower extremity wounds currently being managed by podiatry -Daily dressing changes and topical antibiotic application 7. Congestive Heart Failure (Systolic) -Last echo shows LVEF 17% -Increased lasix to 20mg QOD and 40mg QOD. -Strict I&O's -Daily weights -Cardio consulted, appreciate all recs 8. Acute Kidney Injury on CKD - Resolved -Was off lasix for 4 days after acute elevation in creatinine level, now resolved. -monitor I&Os -Nephro (Ondina) consulted, appreciate all recs 9. Hypertension -continue Lopressor 50mg PO BID, Hydralazine 10mg Q6H PRN, Imdur 60mg PO QD, Cozaar 25 mg PO QD 10. H/o BPH, now with urinary retention -On home Flomax -Swanson removed this AM for voiding trial -Consulted urology (Yeyo), all recs appreciated 11. Constipation - resolved -On senna/colace and miralax -Continue to monitor 12. Thrombocytopenia -Patient is hemodynamically stable with no active bleeding. -Platelet count stable -Patient is off heparin and protonix -Monitor daily CBCs Ppx: Ambulating with PT covers for DVT, Pepcid for GI Dispo: Patient will likely be discharged on 06/30 to home vs [facility] for continued rehab, pending PT's recommendations; will require home O2 Patient seen, discussed, and reviewed with attending <Lina Jarrett - Last Filed: 06/28/17 14:57> Objective - Vital Signs/Intake and Output Vital Signs (last 24 hours): Temp Pulse Resp BP Pulse Ox 98.4 F 62 18 133/71 98 06/28/17 11:17 06/28/17 11:17 06/28/17 11:17 06/28/17 11:17 06/28/17 11:17 Intake and Output: 06/28/17 06/28/17 06:59 18:59 Output Total 500 Balance -500 - Medications Medications: Current Medications Acetaminophen (Tylenol 325mg Tab) 650 mg PO Q6H PRN; Protocol PRN Reason: Pain, moderate (4-7) Last Admin: 06/27/17 01:44 Dose: 650 mg Albuterol/Ipratropium (Duoneb 3 Mg/0.5 Mg (3 Ml) Ud) 3 ml IH Q2H PRN; Protocol PRN Reason: Shortness of Breath Albuterol/Ipratropium (Duoneb 3 Mg/0.5 Mg (3 Ml) Ud) 3 ml IH [id number] TOMER PRN Reason: Protocol Last Admin: 06/28/17 13:08 Dose: 3 ml Aspirin (Ecotrin) 81 mg PO 0800 [facility] PRN Reason: Protocol Last Admin: 06/28/17 08:09 Dose: 81 mg Atorvastatin Calcium (Lipitor) 10 mg PO DIN [facility] PRN Reason: Protocol Last Admin: 06/27/17 18:00 Dose: 10 mg Ciprofloxacin (Cipro) 500 mg PO Q12 [facility] PRN Reason: Protocol Stop: 06/29/17 11:28 Clonidine HCl (Catapres) 0.1 mg PO Q8 PRN PRN Reason: Systolic Blood Pressure Ergocalciferol (Drisdol 50,000 Intl Units Cap) 1 cap PO SAT [facility] PRN Reason: Protocol Famotidine (Pepcid) 20 mg PO 1000,2200 [facility] Last Admin: 06/28/17 11:42 Dose: 20 mg Furosemide (Lasix) 40 mg PO QOTHERDAY [facility] Last Admin: 06/27/17 11:35 Dose: 40 mg Furosemide (Lasix) 20 mg PO QOTHERDAY [facility] Last Admin: 06/28/17 11:09 Dose: 20 mg Isosorbide Mononitrate (Imdur) 60 mg PO DAILY [facility] PRN Reason: Protocol Last Admin: 06/28/17 11:08 Dose: 60 mg Lactic Acid (Lac-Hydrin 12% Cream (140 G)) 0 ea TOP Q12 [facility] Last Admin: 06/28/17 11:08 Dose: 1 dose Metoprolol Tartrate (Lopressor) 50 mg PO 0800,1800 [facility] PRN Reason: Protocol Last Admin: 06/28/17 08:09 Dose: 50 mg Mupirocin (Bactroban Ointment) 0 gm TOP BID [facility] PRN Reason: Protocol Last Admin: 06/28/17 11:03 Dose: 1 applic Polyethylene Glycol (Miralax) 17 gm PO BID [facility] Last Admin: 06/28/17 11:10 Dose: 17 gm Prednisone (Prednisone Tab) 20 mg PO DAILY [facility] Last Admin: 06/28/17 11:10 Dose: 20 mg Senna/Docusate Sodium (Senokot S 50 Mg-8.6 Mg) 1 tab PO BID [facility] PRN Reason: Protocol Last Admin: 06/28/17 11:10 Dose: 1 tab Tamsulosin HCl (Flomax) 0.4 mg PO 1800 [facility] PRN Reason: Protocol Last Admin: 06/27/17 18:02 Dose: 0.4 mg - Labs Labs: 06/28/17 07:50 06/28/17 07:50 Attending/Attestation - Attestation I have personally seen and examined this patient.: Yes I have fully participated in the care of the patient.: Yes I have reviewed all pertinent clinical information, including history, physical exam and plan: Yes Notes (Text): 06/28/17 14:54 87 year old male with extensive medical history and hospital course as above. He is currently in TCU for physical therapy rehabilitation. Cardiology is following his for recent NSTEMI and CHF. He is on aspirin, metoprolol, statin, and lasix. Pulmonary is following for history of COPD. He is on duonebs and tapering po steroids. He is on antibiotics as per ID for LE MRSA cellulitis. Podiatry is following as well for local wound care. His JASWINDER has improved. Nephrology is following. His sodium and potassium which were elevated earlier have improved. He had urinary retention few days prior for which swanson was inserted. He is on flomax. Swanson was discontinued this morning for voiding trial. Continue with present management. Continue with physical therapy. Possible d/ c planning in 1-2 days. Lina Jarrett MD Hospitalist.
--- NOTE | 2017-06-28 13:17 | CP.PCM.PN ---
Subjective - Date & Time of Evaluation Date of Evaluation: 06/28/17 Time of Evaluation: 13:14 - Subjective Subjective: Follow up Nephrology Consultation: Assessment: Stable Acute Kidney Injury (N17.9) likely due to dehydration: improved Hypernatremia. Hyperkalemia: resolved Hypertensive Chronic Kidney Disease (I12.9) Chronic Kidney Disease (N18.9) Stage 3 with 600 mg proteinuria (R80.9) possibly due to HTN/vasc disease HTN (I12.9), pulmonary fibrosis, chronic systolic CHF, bladder tumor, b/l kidney cysts NSTEMI Vit D def with secondary hyperparathyoridism Plan Hypertension control with meds as ordered. Patient not on ACEI/ARB due to recent JASWINDER: can resume home med as losartan 25 mg/day at d/c Monitor Input/Output, daily weights and renal function with basic metabolic panel while in hospital diuretics as per primary team for his CHF. renal fxn and electrolytes stable on current dose. consider to continue with same. continue with ergocalciferol 50,000 units weekly x 8 doses then once a month. Avoid fleets enemas low K diet Dose meds/antibiotics for GFR 50-60. Avoid nephrotoxins/NSAIDs/ iodinated contrast (unless needed emergently) Glycemic control Further work up/management as per primary team Thanks for allowing me to participate in care of your patient. Please call if any Qs. f/up in office 2 weeks post d/c. Dr Edvin Nj Office: [phone] Chief Complaint; no new complaints HPI: Pt is a 87 y/o M with hx of CHF (EF 30-35%), COPD with pulmonary fibrosis, CKD stage 3 (baseline cr 1.1-1.4 mg/dL), HTN, bladder tumor came to ER with altered mental status and shortness of breath and intubated for hypercapnic respi failure, transferred to ICU, renal consult requested for hypernatremia and JASWINDER. got extubated 06/15/17. ROS: Pt offers no new complaints. denies CP/SOB/nausea/vomiting Physical Examination: General Appearance: Comfortable, in no acute respiratory distress. Vitals reviewed and noted as below Head; Atraumatic, normocephalic Neck; supple no lymphadenopathy, no thyromegaly or bruit Lungs: Normal respiratory rate/effort. Breath sounds bilateral with basal crackles, has hx of pulmonary fibrosis/COPD. also CHF Heart: Normal rate. s1s2 normal. No rub or gallop. SM at left sternal border Extremities: trace to 1+ chronic edema. No varicose veins. has chronic venous stasis changes. both legs dressed, known to have chronic leg wounds Neurological: Patient is awake alert Skin: Warm and dry. Normal turgor. No rash. Palpitation: Normal elasticity for age. has upper extremity echymoses/swelling + which is improved Abdomen: Abdomen is soft. Bowel sounds +. There is no abdominal tenderness, no guarding/rigidity no organomegaly MSK: no joint tenderness or swelling. Digits and nails normal, no deformity : kidney or bladder not palpable. Labs/imaging/EKG reviewed. Past medical history, past surgical history, family history, social history, allergy reviewed and noted as below Family hx: no hx of CKD Work up UA done by me showed 30+ protein large blood and LE ++ SG 1.025. microscopy showed very few granular casts, numerous WBCs and also monomorphic RBCs renal sono 2016: b/l renal cysts Objective - Vital Signs/Intake and Output Vital Signs (last 24 hours): Temp Pulse Resp BP Pulse Ox 98.4 F 62 18 133/71 98 06/28/17 11:17 06/28/17 11:17 06/28/17 11:17 06/28/17 11:17 06/28/17 11:17 Intake and Output: 06/28/17 06/28/17 06:59 18:59 Output Total 500 Balance -500 - Medications Medications: Current Medications Acetaminophen (Tylenol 325mg Tab) 650 mg PO Q6H PRN; Protocol PRN Reason: Pain, moderate (4-7) Last Admin: 06/27/17 01:44 Dose: 650 mg Albuterol/Ipratropium (Duoneb 3 Mg/0.5 Mg (3 Ml) Ud) 3 ml IH Q2H PRN; Protocol PRN Reason: Shortness of Breath Albuterol/Ipratropium (Duoneb 3 Mg/0.5 Mg (3 Ml) Ud) 3 ml IH [id number] [facility] PRN Reason: Protocol Last Admin: 06/28/17 13:08 Dose: 3 ml Aspirin (Ecotrin) 81 mg PO 0800 [facility] PRN Reason: Protocol Last Admin: 06/28/17 08:09 Dose: 81 mg Atorvastatin Calcium (Lipitor) 10 mg PO DIN [facility] PRN Reason: Protocol Last Admin: 06/27/17 18:00 Dose: 10 mg Ciprofloxacin (Cipro) 500 mg PO Q12 [facility] PRN Reason: Protocol Stop: 06/29/17 11:28 Clonidine HCl (Catapres) 0.1 mg PO Q8 PRN PRN Reason: Systolic Blood Pressure Ergocalciferol (Drisdol 50,000 Intl Units Cap) 1 cap PO SAT [facility] PRN Reason: Protocol Famotidine (Pepcid) 20 mg PO 1000,2200 [facility] Last Admin: 06/28/17 11:42 Dose: 20 mg Furosemide (Lasix) 40 mg PO QOTHERDAY [facility] Last Admin: 06/27/17 11:35 Dose: 40 mg Furosemide (Lasix) 20 mg PO QOTHERDAY [facility] Last Admin: 06/28/17 11:09 Dose: 20 mg Isosorbide Mononitrate (Imdur) 60 mg PO DAILY [facility] PRN Reason: Protocol Last Admin: 06/28/17 11:08 Dose: 60 mg Lactic Acid (Lac-Hydrin 12% Cream (140 G)) 0 ea TOP Q12 [facility] Last Admin: 06/28/17 11:08 Dose: 1 dose Metoprolol Tartrate (Lopressor) 50 mg PO 0800,1800 [facility] PRN Reason: Protocol Last Admin: 06/28/17 08:09 Dose: 50 mg Mupirocin (Bactroban Ointment) 0 gm TOP BID [facility] PRN Reason: Protocol Last Admin: 06/28/17 11:03 Dose: 1 applic Polyethylene Glycol (Miralax) 17 gm PO BID [facility] Last Admin: 06/28/17 11:10 Dose: 17 gm Prednisone (Prednisone Tab) 20 mg PO DAILY [facility] Last Admin: 06/28/17 11:10 Dose: 20 mg Senna/Docusate Sodium (Senokot S 50 Mg-8.6 Mg) 1 tab PO BID [facility] PRN Reason: Protocol Last Admin: 06/28/17 11:10 Dose: 1 tab Tamsulosin HCl (Flomax) 0.4 mg PO 1800 [facility] PRN Reason: Protocol Last Admin: 06/27/17 18:02 Dose: 0.4 mg - Labs Labs: 06/28/17 07:50 06/28/17 07:50
--- NOTE | 2017-06-28 16:54 | CP.PCM.PN ---
Subjective - Date & Time of Evaluation Date of Evaluation: 06/28/17 Time of Evaluation: 16:30 - Subjective Subjective: Infectious Disease Follow Up: June 28, 2017 87 yo male brought in initially for lethargy and AMS. The patient has an extensive medical history that includes COPD, CHF last known EF of 30-35% in 2015, HTN, Paget's disease and PAD. The patient required intubation and ventilation once arriving in [facility]. He was extubated several days later. Remains extubated and feeling better. He is much more awake and alert today. No major complaints. He does complain of bilateral lower extremity pain. 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 Multiple chronic medical issues. No major specific complaints at this time. He needed physical therapy. Currently in the TRCU. He is growing Klebsiella and Staph Aureus sensitive to Cipro. No new issues. Objective - Vital Signs/Intake and Output Vital Signs (last 24 hours): Temp Pulse Resp BP Pulse Ox 98 F 65 18 124/57 L 99 06/28/17 16:00 06/28/17 16:00 06/28/17 16:00 06/28/17 16:00 06/28/17 16:00 Intake and Output: 06/28/17 06/28/17 06:59 18:59 Output Total 500 Balance -500 - Medications Medications: Current Medications Acetaminophen (Tylenol 325mg Tab) 650 mg PO Q6H PRN; Protocol PRN Reason: Pain, moderate (4-7) Last Admin: 06/27/17 01:44 Dose: 650 mg Albuterol/Ipratropium (Duoneb 3 Mg/0.5 Mg (3 Ml) Ud) 3 ml IH Q2H PRN; Protocol PRN Reason: Shortness of Breath Albuterol/Ipratropium (Duoneb 3 Mg/0.5 Mg (3 Ml) Ud) 3 ml IH [id number] [facility] PRN Reason: Protocol Last Admin: 06/28/17 13:08 Dose: 3 ml Aspirin (Ecotrin) 81 mg PO 0800 [facility] PRN Reason: Protocol Last Admin: 06/28/17 08:09 Dose: 81 mg Atorvastatin Calcium (Lipitor) 10 mg PO DIN [facility] PRN Reason: Protocol Last Admin: 06/27/17 18:00 Dose: 10 mg Ciprofloxacin (Cipro) 500 mg PO Q12 [facility] PRN Reason: Protocol Stop: 06/29/17 11:28 Clonidine HCl (Catapres) 0.1 mg PO Q8 PRN PRN Reason: Systolic Blood Pressure Ergocalciferol (Drisdol 50,000 Intl Units Cap) 1 cap PO SAT [facility] PRN Reason: Protocol Famotidine (Pepcid) 20 mg PO 1000,2200 [facility] Last Admin: 06/28/17 11:42 Dose: 20 mg Furosemide (Lasix) 40 mg PO QOTHERDAY [facility] Last Admin: 06/27/17 11:35 Dose: 40 mg Furosemide (Lasix) 20 mg PO QOTHERDAY [facility] Last Admin: 06/28/17 11:09 Dose: 20 mg Isosorbide Mononitrate (Imdur) 60 mg PO DAILY [facility] PRN Reason: Protocol Last Admin: 06/28/17 11:08 Dose: 60 mg Lactic Acid (Lac-Hydrin 12% Cream (140 G)) 0 ea TOP Q12 [facility] Last Admin: 06/28/17 11:08 Dose: 1 dose Metoprolol Tartrate (Lopressor) 50 mg PO 0800,1800 [facility] PRN Reason: Protocol Last Admin: 06/28/17 08:09 Dose: 50 mg Mupirocin (Bactroban Ointment) 0 gm TOP BID [facility] PRN Reason: Protocol Last Admin: 06/28/17 11:03 Dose: 1 applic Polyethylene Glycol (Miralax) 17 gm PO BID [facility] Last Admin: 06/28/17 11:10 Dose: 17 gm Prednisone (Prednisone Tab) 20 mg PO DAILY [facility] Last Admin: 06/28/17 11:10 Dose: 20 mg Senna/Docusate Sodium (Senokot S 50 Mg-8.6 Mg) 1 tab PO BID [facility] PRN Reason: Protocol Last Admin: 06/28/17 11:10 Dose: 1 tab Tamsulosin HCl (Flomax) 0.4 mg PO 1800 [facility] PRN Reason: Protocol Last Admin: 06/27/17 18:02 Dose: 0.4 mg - Labs Labs: 06/28/17 07:50 06/28/17 07:50 - Constitutional Appears: Non-toxic, No Acute Distress, Chronically Ill - Head Exam Head Exam: ATRAUMATIC, NORMOCEPHALIC - Eye Exam Eye Exam: EOMI, PERRL Pupil Exam: NORMAL ACCOMODATION, PERRL - ENT Exam ENT Exam: Mucous Membranes Moist, Normal External Ear Exam, TM's Normal Bilaterally - Neck Exam Neck Exam: Full ROM, Normal Inspection - Respiratory Exam Respiratory Exam: Clear to Ausculation Bilateral, NORMAL BREATHING PATTERN. absent: Rales, Rhonchi, Wheezes - Cardiovascular Exam Cardiovascular Exam: REGULAR RHYTHM, RRR, +S1, +S2 - GI/Abdominal Exam GI & Abdominal Exam: Soft, Normal Bowel Sounds. absent: Distended, Tenderness - Extremities Exam Additional comments: +Heel protectors +Venous stasis skin changes B/L LE wrapped with curlex mild cellulitis of the bilateral lower extremities and chronic venous stasis. open ulcerations on the bilateral legs anteriorly. wounds are malodorous. now s/p debridement of the ulcerations. - Neurological Exam Neurological Exam: Alert, Awake, CN II-XII Intact, Oriented x3 - Psychiatric Exam Psychiatric exam: Normal Affect, Normal Mood - Skin Skin Exam: Intact, Normal Color Assessment and Plan - Assessment and Plan (Free Text) Assessment: 87 yo male with AMS and lethargy. Etiology unclear. Broad spectrum coverage initially with Rocephin and Vancomycin treatment. Ignacio cultures. Imaging studies. Patient was intubated and ventilated but was extubated several days later. Overall improving. Supportive care. Obtain procalcitonin... which was 0.48 which is normal. Follow up WBC and fever trend. Urine drug screen positive for Benzodiazepine. Respiratory failure. Renal insufficiency (acute or chronic?). Patient has a history of hypertension and systolic congestive heart failure. Patient improving and is mentally back to his normal state at this time. His only complaint is of bilateral lower leg pains. Went to OR Sunday morning for debridement of unhealthy tissue of the legs. No additional issues. Cultures showing Staph Aureus and Klebsiella. The patient started on Cipro IV today. He will need 10 days of treatment although it does not have to be all by IV and can be finished with PO Cipro. He has been otherwise stable. Thank you for allowing me to participate in the care of the patient, we will follow with you.
[2017-06-29] MEDS: Albuterol-Ipratrop 3 mg / 0.5 (3 ml) UD IH SCH ×4 (02:00→19:57)
--- NOTE | 2017-06-29 08:53 | PN ---
DATE: 06/29/2017 PULMONARY NOTE SUBJECTIVE: The patient appears comfortable this morning. He is not short of breath at rest. PHYSICAL EXAMINATION VITAL SIGNS: Temperature is 98.0, pulse is 65, respirations are 18, and blood pressure is 124/57. Oxygen saturation on nasal cannula is 99%. HEENT: Normocephalic and atraumatic. NECK: No JVD. CARDIOVASCULAR: Systolic ejection murmur at the lower left sternal border. No S3 gallop. LUNGS: Very minimal/less rhonchi. No wheezing. EXTREMITIES: Mild edema. No cyanosis. No clubbing. Calves are nontender to palpation. GASTROINTESTINAL: Abdomen is soft, nontender, and nondistended. Bowel sounds are positive. SKIN: Less cellulitic changes-on both lower extremities. NEUROLOGIC: Limited at the present time. IMPRESSION: 1. Status post respiratory failure. 2. Subacute cerebrovascular accident. 3. Chronic obstructive pulmonary disease. 4. Bilateral pneumonia. 5. Myocardial infarction. 6. Renal insufficiency. 7. Bilateral leg cellulitis. PLAN: The patient appears comfortable this morning. He is not short of breath at rest. He does state that he is feeling much better overall. On physical exam, his bronchospasm continues to resolve. In addition, the oxygen saturation on nasal cannula is now 99%. I will continue with the current nebulizer treatments and low-dose oral steroids for now. The patient remains on antibiotic therapy-as per Infectious Disease. He has now been changed to oral therapy. Input by Dr. Martin is noted. Clinical status of the patient is significantly improved overall. The patient continues to work with physical therapy. I will discuss the above with the attending physician. I also have daily discussions with the son. [place] MD MTDD
[2017-06-29] MEDS: POLYETHYLENE GLYCOL 3350 17 GM/Dose PACKET PO SCH ×2 (10:36→17:29)
[2017-06-29] MEDS: Docusate-Senna 50 mg-8.6 mg Tab PO SCH ×2 (10:38→17:29)
[2017-06-29] MEDS: Ammonium Lactate 12% Cream (140 g) TOP SCH ×2 (11:44→22:22)
--- NOTE | 2017-06-29 11:49 | CP.PCM.PN ---
<Renae Kaur - Last Filed: 06/29/17 11:47> Subjective - Date & Time of Evaluation Date of Evaluation: 06/29/17 Time of Evaluation: 11:47 - Subjective Subjective: 87 y/o male seen at bedside today in TCU 9 days s/p right leg wound debridement. Patient is seen resting comfortably in bed and is in good spirits. Patient is noticing improvements in his mobility with physical therapy and is not experiencing significant pain at this time. Patient denies N/V/F/D/C/SOB/ calf pain. No other pedal complaints at this time. Objective - Vital Signs/Intake and Output Vital Signs (last 24 hours): Temp Pulse Resp BP Pulse Ox 98 F 69 18 132/75 99 06/28/17 16:00 06/29/17 08:07 06/28/17 16:00 06/29/17 10:36 06/28/17 16:00 Intake and Output: 06/29/17 06/29/17 06:59 18:59 Intake Total 420 Output Total 1475 Balance -1055 - Medications Medications: Current Medications Acetaminophen (Tylenol 325mg Tab) 650 mg PO Q6H PRN; Protocol PRN Reason: Pain, moderate (4-7) Last Admin: 06/29/17 08:05 Dose: 650 mg Albuterol/Ipratropium (Duoneb 3 Mg/0.5 Mg (3 Ml) Ud) 3 ml IH Q2H PRN; Protocol PRN Reason: Shortness of Breath Albuterol/Ipratropium (Duoneb 3 Mg/0.5 Mg (3 Ml) Ud) 3 ml IH [id number] [facility] PRN Reason: Protocol Last Admin: 06/29/17 07:16 Dose: 3 ml Aspirin (Ecotrin) 81 mg PO 0800 [facility] PRN Reason: Protocol Last Admin: 06/29/17 08:07 Dose: 81 mg Atorvastatin Calcium (Lipitor) 10 mg PO DIN [facility] PRN Reason: Protocol Last Admin: 06/28/17 18:07 Dose: 10 mg Clonidine HCl (Catapres) 0.1 mg PO Q8 PRN PRN Reason: Systolic Blood Pressure Ergocalciferol (Drisdol 50,000 Intl Units Cap) 1 cap PO SAT [facility] PRN Reason: Protocol Famotidine (Pepcid) 20 mg PO 1000,2200 [facility] Last Admin: 06/29/17 10:38 Dose: 20 mg Furosemide (Lasix) 40 mg PO QOTHERDAY [facility] Last Admin: 06/29/17 10:36 Dose: 40 mg Furosemide (Lasix) 20 mg PO QOTHERDAY [facility] Last Admin: 06/28/17 11:09 Dose: 20 mg Isosorbide Mononitrate (Imdur) 60 mg PO DAILY [facility] PRN Reason: Protocol Last Admin: 06/29/17 10:34 Dose: 60 mg Lactic Acid (Lac-Hydrin 12% Cream (140 G)) 0 ea TOP Q12 [facility] Last Admin: 06/29/17 11:44 Dose: 1 dose Metoprolol Tartrate (Lopressor) 50 mg PO 0800,1800 [facility] PRN Reason: Protocol Last Admin: 06/29/17 08:07 Dose: 50 mg Mupirocin (Bactroban Ointment) 0 gm TOP BID [facility] PRN Reason: Protocol Last Admin: 06/29/17 10:33 Dose: 1 applic Polyethylene Glycol (Miralax) 17 gm PO BID [facility] Last Admin: 06/29/17 10:36 Dose: 17 gm Prednisone (Prednisone Tab) 20 mg PO DAILY [facility] Last Admin: 06/29/17 10:38 Dose: 20 mg Senna/Docusate Sodium (Senokot S 50 Mg-8.6 Mg) 1 tab PO BID [facility] PRN Reason: Protocol Last Admin: 06/29/17 10:38 Dose: 1 tab Tamsulosin HCl (Flomax) 0.4 mg PO 1800 [facility] PRN Reason: Protocol Last Admin: 06/28/17 18:07 Dose: 0.4 mg - Labs Labs: 06/28/17 07:50 06/28/17 07:50 - Constitutional Appears: Well, Non-toxic, No Acute Distress - Extremities Exam Additional comments: Bilateral lower extremity examination: Vasc: Palpable DP and PT pulses are noted 1/4 bilaterally. CFT < 3 seconds noted to all digits Derm: Right: Open ulcerations to anterior and lateral aspect of leg measuring 10cm x 4cm x 0.2cm with granular base. Minimal serosanguinous drainage is noted. Decreasing erythema, no purulence, no malodor. Left: Open ulcerations to anterior aspect of leg measuring 9cm x 4cm x 0.2cm with a mixed fibrogranular base. Mild serosanguinous drainage is noted. No malodor, no purulence. Mild erythema noted to wound periphery. - Neurological Exam Neurological Exam: Alert, Awake, Oriented x3 - Psychiatric Exam Psychiatric exam: Normal Affect, Normal Mood Assessment and Plan - Assessment and Plan (Free Text) Assessment: 87 yo male patient with venous stasis ulcerations to anterior aspect of bilateral legs (R>L) 9 days s/p right leg wound debridement Plan: Patient was seen and evaluated at bedside with attending Dr. Cummings Chart, labs and vitals reviewed - afebrile Bilateral legs dressed with maxorb, optifoam,kerlix, tubigrip- please remove at nighttime before bed and reapply in AM Lac Hydrin to be applied to humble wound areas on bilateral legs BID Continue abx per ID Podiatry will continue to follow in-house <Noam Cummings - Last Filed: 06/29/17 15:53> Objective - Vital Signs/Intake and Output Vital Signs (last 24 hours): Temp Pulse Resp BP Pulse Ox 98.5 F 61 20 132/75 99 06/29/17 10:00 06/29/17 10:00 06/29/17 10:00 06/29/17 10:36 06/28/17 16:00 Intake and Output: 06/29/17 06/29/17 06:59 18:59 Intake Total 420 360 Output Total 1475 300 Balance -1055 60 - Medications Medications: Current Medications Acetaminophen (Tylenol 325mg Tab) 650 mg PO Q6H PRN; Protocol PRN Reason: Pain, moderate (4-7) Last Admin: 06/29/17 08:05 Dose: 650 mg Albuterol/Ipratropium (Duoneb 3 Mg/0.5 Mg (3 Ml) Ud) 3 ml IH Q2H PRN; Protocol PRN Reason: Shortness of Breath Albuterol/Ipratropium (Duoneb 3 Mg/0.5 Mg (3 Ml) Ud) 3 ml IH [id number] [facility] PRN Reason: Protocol Last Admin: 06/29/17 13:21 Dose: 3 ml Aspirin (Ecotrin) 81 mg PO 0800 [facility] PRN Reason: Protocol Last Admin: 06/29/17 08:07 Dose: 81 mg Atorvastatin Calcium (Lipitor) 10 mg PO DIN [facility] PRN Reason: Protocol Last Admin: 06/28/17 18:07 Dose: 10 mg Clonidine HCl (Catapres) 0.1 mg PO Q8 PRN PRN Reason: Systolic Blood Pressure Ergocalciferol (Drisdol 50,000 Intl Units Cap) 1 cap PO SAT [facility] PRN Reason: Protocol Famotidine (Pepcid) 20 mg PO 1000,2200 [facility] Last Admin: 06/29/17 10:38 Dose: 20 mg Furosemide (Lasix) 40 mg PO QOTHERDAY [facility] Last Admin: 06/29/17 10:36 Dose: 40 mg Furosemide (Lasix) 20 mg PO QOTHERDAY [facility] Last Admin: 06/28/17 11:09 Dose: 20 mg Isosorbide Mononitrate (Imdur) 60 mg PO DAILY [facility] PRN Reason: Protocol Last Admin: 06/29/17 10:34 Dose: 60 mg Lactic Acid (Lac-Hydrin 12% Cream (140 G)) 0 ea TOP Q12 [facility] Last Admin: 06/29/17 11:44 Dose: 1 dose Metoprolol Tartrate (Lopressor) 50 mg PO 0800,1800 [facility] PRN Reason: Protocol Last Admin: 06/29/17 08:07 Dose: 50 mg Mupirocin (Bactroban Ointment) 0 gm TOP BID [facility] PRN Reason: Protocol Last Admin: 06/29/17 10:33 Dose: 1 applic Polyethylene Glycol (Miralax) 17 gm PO BID [facility] Last Admin: 06/29/17 10:36 Dose: 17 gm Prednisone (Prednisone Tab) 20 mg PO DAILY [facility] Last Admin: 06/29/17 10:38 Dose: 20 mg Senna/Docusate Sodium (Senokot S 50 Mg-8.6 Mg) 1 tab PO BID [facility] PRN Reason: Protocol Last Admin: 06/29/17 10:38 Dose: 1 tab Tamsulosin HCl (Flomax) 0.4 mg PO 1800 [facility] PRN Reason: Protocol Last Admin: 06/28/17 18:07 Dose: 0.4 mg - Labs Labs: 06/28/17 07:50 06/28/17 07:50 Attending/Attestation - Attestation I have personally seen and examined this patient.: Yes I have fully participated in the care of the patient.: Yes I have reviewed all pertinent clinical information, including history, physical exam and plan: Yes
--- NOTE | 2017-06-29 16:05 | CP.PCM.PN ---
Subjective - Date & Time of Evaluation Date of Evaluation: 06/29/17 Time of Evaluation: 15:30 - Subjective Subjective: Infectious Disease Follow Up: June 29, 2017 87 yo male brought in initially for lethargy and AMS. The patient has an extensive medical history that includes COPD, CHF last known EF of 30-35% in 2015, HTN, Paget's disease and PAD. The patient required intubation and ventilation [place] [facility] [place] He was extubated several days later. Remains extubated and feeling better. He is much more awake and alert today. No major complaints. He does complain of bilateral lower extremity pain. 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 Multiple chronic medical issues. No major specific complaints at this time. He needed physical therapy. Currently in the [facility]. He is growing Klebsiella and Staph Aureus sensitive to Cipro. No new issues. No has now complaints and is tolerating rehab. Objective - Vital Signs/Intake and Output Vital Signs (last 24 hours): Temp Pulse Resp BP Pulse Ox 98.5 F 61 20 132/75 99 06/29/17 10:00 06/29/17 10:00 06/29/17 10:00 06/29/17 10:36 06/28/17 16:00 Intake and Output: 06/29/17 06/29/17 06:59 18:59 Intake Total 420 360 Output Total 1475 300 Balance -1055 60 - Medications Medications: Current Medications Acetaminophen (Tylenol 325mg Tab) 650 mg PO Q6H PRN; Protocol PRN Reason: Pain, moderate (4-7) Last Admin: 06/29/17 08:05 Dose: 650 mg Albuterol/Ipratropium (Duoneb 3 Mg/0.5 Mg (3 Ml) Ud) 3 ml IH Q2H PRN; Protocol PRN Reason: Shortness of Breath Albuterol/Ipratropium (Duoneb 3 Mg/0.5 Mg (3 Ml) Ud) 3 ml IH [id number] [facility] PRN Reason: Protocol Last Admin: 06/29/17 13:21 Dose: 3 ml Aspirin (Ecotrin) 81 mg PO 0800 [facility] PRN Reason: Protocol Last Admin: 06/29/17 08:07 Dose: 81 mg Atorvastatin Calcium (Lipitor) 10 mg PO DIN [facility] PRN Reason: Protocol Last Admin: 06/28/17 18:07 Dose: 10 mg Clonidine HCl (Catapres) 0.1 mg PO Q8 PRN PRN Reason: Systolic Blood Pressure Ergocalciferol (Drisdol 50,000 Intl Units Cap) 1 cap PO SAT [facility] PRN Reason: Protocol Famotidine (Pepcid) 20 mg PO 1000,2200 [facility] Last Admin: 06/29/17 10:38 Dose: 20 mg Furosemide (Lasix) 40 mg PO QOTHERDAY [facility] Last Admin: 06/29/17 10:36 Dose: 40 mg Furosemide (Lasix) 20 mg PO QOTHERDAY [facility] Last Admin: 06/28/17 11:09 Dose: 20 mg Isosorbide Mononitrate (Imdur) 60 mg PO DAILY [facility] PRN Reason: Protocol Last Admin: 06/29/17 10:34 Dose: 60 mg Lactic Acid (Lac-Hydrin 12% Cream (140 G)) 0 ea TOP Q12 [facility] Last Admin: 06/29/17 11:44 Dose: 1 dose Metoprolol Tartrate (Lopressor) 50 mg PO 0800,1800 [facility] PRN Reason: Protocol Last Admin: 06/29/17 08:07 Dose: 50 mg Mupirocin (Bactroban Ointment) 0 gm TOP BID [facility] PRN Reason: Protocol Last Admin: 06/29/17 10:33 Dose: 1 applic Polyethylene Glycol (Miralax) 17 gm PO BID [facility] Last Admin: 06/29/17 10:36 Dose: 17 gm Prednisone (Prednisone Tab) 20 mg PO DAILY [facility] Last Admin: 06/29/17 10:38 Dose: 20 mg Senna/Docusate Sodium (Senokot S 50 Mg-8.6 Mg) 1 tab PO BID [facility] PRN Reason: Protocol Last Admin: 06/29/17 10:38 Dose: 1 tab Tamsulosin HCl (Flomax) 0.4 mg PO 1800 [facility] PRN Reason: Protocol Last Admin: 06/28/17 18:07 Dose: 0.4 mg - Labs Labs: 06/28/17 07:50 06/28/17 07:50 - Constitutional Appears: Non-toxic, No Acute Distress, Chronically Ill - Head Exam Head Exam: ATRAUMATIC, NORMOCEPHALIC - Eye Exam Eye Exam: EOMI, PERRL Pupil Exam: NORMAL ACCOMODATION, PERRL - ENT Exam ENT Exam: Mucous Membranes Moist, Normal External Ear Exam, TM's Normal Bilaterally - Neck Exam Neck Exam: Full ROM, Normal Inspection - Respiratory Exam Respiratory Exam: Clear to Ausculation Bilateral, NORMAL BREATHING PATTERN. absent: Rales, Rhonchi, Wheezes - Cardiovascular Exam Cardiovascular Exam: REGULAR RHYTHM, RRR, +S1, +S2 - GI/Abdominal Exam GI & Abdominal Exam: Soft, Normal Bowel Sounds. absent: Distended, Tenderness - Extremities Exam Additional comments: +Heel protectors +Venous stasis skin changes B/L LE wrapped with curlex mild cellulitis of the bilateral lower extremities and chronic venous stasis. open ulcerations on the bilateral legs anteriorly. wounds are malodorous. now s/p debridement of the ulcerations. - Neurological Exam Neurological Exam: Alert, Awake, CN II-XII Intact, Oriented x3 - Psychiatric Exam Psychiatric exam: Normal Affect, Normal Mood - Skin Skin Exam: Intact, Normal Color Assessment and Plan - Assessment and Plan (Free Text) Assessment: 87 yo male with AMS and lethargy. Etiology unclear. Broad spectrum coverage initially with Rocephin and Vancomycin treatment. Ignacio cultures. Imaging studies. Patient was intubated and ventilated but was extubated several days later. Overall improving. Supportive care. Obtain procalcitonin... which was 0.48 which is normal. Follow up WBC and fever trend. Urine drug screen positive for Benzodiazepine. Respiratory failure. Renal insufficiency (acute or chronic?). Patient has a history of hypertension and systolic congestive heart failure. Patient improving and is mentally back to his normal state at this time. His only complaint is of bilateral lower leg pains. Went to OR Sunday morning for debridement of unhealthy tissue of the legs. No additional issues. Cultures showing Staph Aureus and Klebsiella. The patient started on Cipro IV today. He will need 10 days of treatment although it does not have to be all by IV and can be finished with PO Cipro. Tolerating physical therapy. No complaints currently. He has been otherwise stable. Thank you for allowing me to participate in the care of the patient, we will follow with you.
[2017-06-30] MEDS: Albuterol-Ipratrop 3 mg / 0.5 (3 ml) UD IH SCH ×3 (01:41→13:44)
[2017-06-30 06:44] VITALS: RESP 18
[2017-06-30] MEDS: Ammonium Lactate 12% Cream (140 g) TOP SCH (09:16)
[2017-06-30] MEDS: POLYETHYLENE GLYCOL 3350 17 GM/Dose PACKET PO SCH (09:17)
[2017-06-30] MEDS: Docusate-Senna 50 mg-8.6 mg Tab PO SCH (09:17)
--- NOTE | 2017-06-30 09:46 | CP.PCM.PN ---
<TeoJackypatsyreilly - Last Filed: 06/30/17 09:41> Subjective - Date & Time of Evaluation Date of Evaluation: 06/30/17 Time of Evaluation: 09:42 - Subjective Subjective: 87 y/o male seen at bedside today in TCU 10 days s/p right leg wound debridement. Patient is seen resting comfortably in bed. Patient is noticing improvements in his mobility with physical therapy and is not experiencing significant pain at this time. Patient denies N/V/F/D/C/SOB/calf pain. No other pedal complaints at this time. Objective - Vital Signs/Intake and Output Vital Signs (last 24 hours): Temp Pulse Resp BP Pulse Ox 98.1 F 64 18 120/69 94 L 06/30/17 06:00 06/30/17 08:20 06/30/17 06:00 06/30/17 09:16 06/30/17 06:00 Intake and Output: 06/30/17 06/30/17 06:59 18:59 Output Total 400 Balance -400 - Medications Medications: Current Medications Acetaminophen (Tylenol 325mg Tab) 650 mg PO Q6H PRN; Protocol PRN Reason: Pain, moderate (4-7) Last Admin: 06/30/17 05:25 Dose: 650 mg Albuterol/Ipratropium (Duoneb 3 Mg/0.5 Mg (3 Ml) Ud) 3 ml IH Q2H PRN; Protocol PRN Reason: Shortness of Breath Albuterol/Ipratropium (Duoneb 3 Mg/0.5 Mg (3 Ml) Ud) 3 ml IH [id number] [facility] PRN Reason: Protocol Last Admin: 06/30/17 07:21 Dose: 3 ml Aspirin (Ecotrin) 81 mg PO 0800 [facility] PRN Reason: Protocol Last Admin: 06/30/17 08:21 Dose: 81 mg Atorvastatin Calcium (Lipitor) 10 mg PO DIN [facility] PRN Reason: Protocol Last Admin: 06/29/17 17:27 Dose: 10 mg Clonidine HCl (Catapres) 0.1 mg PO Q8 PRN PRN Reason: Systolic Blood Pressure Ergocalciferol (Drisdol 50,000 Intl Units Cap) 1 cap PO SAT [facility] PRN Reason: Protocol Last Admin: 06/30/17 09:15 Dose: 1 cap Famotidine (Pepcid) 20 mg PO 1000,2200 [facility] Last Admin: 06/30/17 09:17 Dose: 20 mg Furosemide (Lasix) 40 mg PO QOTHERDAY [facility] Last Admin: 06/29/17 10:36 Dose: 40 mg Furosemide (Lasix) 20 mg PO QOTHERDAY [facility] Last Admin: 06/30/17 09:16 Dose: 20 mg Isosorbide Mononitrate (Imdur) 60 mg PO DAILY [facility] PRN Reason: Protocol Last Admin: 06/30/17 09:16 Dose: 60 mg Lactic Acid (Lac-Hydrin 12% Cream (140 G)) 0 ea TOP Q12 [facility] Last Admin: 06/30/17 09:16 Dose: 1 dose Metoprolol Tartrate (Lopressor) 50 mg PO 0800,1800 [facility] PRN Reason: Protocol Last Admin: 06/30/17 08:20 Dose: Not Given Mupirocin (Bactroban Ointment) 0 gm TOP BID [facility] PRN Reason: Protocol Last Admin: 06/30/17 09:15 Dose: 1 applic Polyethylene Glycol (Miralax) 17 gm PO BID [facility] Last Admin: 06/30/17 09:17 Dose: 17 gm Prednisone (Prednisone Tab) 20 mg PO DAILY [facility] Last Admin: 06/30/17 09:17 Dose: 20 mg Senna/Docusate Sodium (Senokot S 50 Mg-8.6 Mg) 1 tab PO BID [facility] PRN Reason: Protocol Last Admin: 06/30/17 09:17 Dose: 1 tab Tamsulosin HCl (Flomax) 0.4 mg PO 1800 [facility] PRN Reason: Protocol Last Admin: 06/29/17 17:27 Dose: 0.4 mg - Labs Labs: 06/28/17 07:50 06/28/17 07:50 - Constitutional Appears: Well, No Acute Distress - Extremities Exam Additional comments: Patients dressing is clean, dry and intact. Dressing was changed by nursing less than hour ago so was not changed at this time. - Neurological Exam Neurological Exam: Alert, Awake, Oriented x3 - Psychiatric Exam Psychiatric exam: Normal Affect, Normal Mood Assessment and Plan - Assessment and Plan (Free Text) Assessment: 87 yo male patient with venous stasis ulcerations to anterior aspect of bilateral legs (R>L) 10 days s/p right leg wound debridement Plan: Patient was seen and evaluated at bedside with attending Dr. Cummings Chart, labs and vitals reviewed - afebrile, WBC @ 10.3 yesterday Bilateral legs dressed with maxorb, optifoam,kerlix, tubigrip- please remove at nighttime before bed and reapply in AM Lac Hydrin to be applied to humble wound areas on bilateral legs BID Continue abx per ID Podiatry will continue to follow in-house <Noam Cummings - Last Filed: 07/03/17 11:21> Objective - Vital Signs/Intake and Output Vital Signs (last 24 hours): Temp Pulse Resp BP Pulse Ox 97.3 F L 72 18 113/53 L 98 06/30/17 10:57 06/30/17 10:57 06/30/17 10:57 06/30/17 10:57 06/30/17 10:57 - Labs Labs: 06/28/17 07:50 06/28/17 07:50 Attending/Attestation - Attestation I have personally seen and examined this patient.: Yes I have fully participated in the care of the patient.: Yes I have reviewed all pertinent clinical information, including history, physical exam and plan: Yes
[2017-06-30] MEDS ORDERED: Ergocalciferol 50,000 Intl Units Cap PO SCH (10:00)
--- NOTE | 2017-06-30 10:01 | PN ---
PULMONARY PROGRESS NOTE DATE: 06/30/2017 SUBJECTIVE: The patient was seen and examined at bedside. He is receiving inhalation treatments with DuoNeb, and he is still on prednisone 20 mg. LABORATORY DATA: There is no new laboratory to review. PHYSICAL EXAMINATION: VITAL SIGNS: As follows: Temperature 98, pulse 64, respirations 18, pulse oximetry is 94% on nasal cannula and blood pressure 117/50. HEAD, EARS, NOSE AND THROAT: Within normal limits. NECK: Supple with no jugular vein distention. CHEST: Symmetrical. HEART: S1 and S2. No S3. Regular. PULMONARY: Diminished breath sounds at both bases. No wheezing. GASTROINTESTINAL: Soft and nontender with no organomegaly. SKIN: Less cellulitic changes on both lower extremities. NEUROLOGIC: Limited at the present time. ASSESSMENT: 1. Status post respiratory failure. 2. Subacute cerebrovascular accident. 3. Chronic obstructive pulmonary disease. 4. Bilateral pneumonia. 5. Myocardial infarction. 6. Bilateral cellulitis. PLAN: The patient appears improving. This morning, he is comfortable. He is not short of breath. Oxygen saturation is mildly reduced on nasal cannula to 94%. I will continue with current nebulizer treatment, low dose steroids. The two can be probably reduced further. Continued close follow up is advised. Richard Ordonez MD
[2017-06-30 10:59] VITALS: BP 113/53; PULSE 72; TEMP 97.3; O2SAT 98
--- NOTE | 2017-06-30 13:17 | CP.PCM.DIS ---
<Adenike Toro - Last Filed: 06/30/17 14:02> Provider - Provider Date of Admission: 06/23/17 17:21 Attending physician: Lina Jarrett MD Consults: Cardiology: Dr Pratt Neurology: Dr Castro. Nephrology: Dr Wise Podiatry: Dr Buitrago Pulmonist: Dr Hope ID: Dr Martin Urologist: Dr Orona Time Spent in preparation of Discharge (in minutes): 60 Diagnosis - Discharge Diagnosis (1) Chronic venous stasis dermatitis of both lower extremities Status: Acute (2) Cellulitis Status: Acute (3) S/P debridement Status: Acute (4) Altered mental status Status: Acute Priority: High (5) NSTEMI (non-ST elevated myocardial infarction) Status: Acute Priority: High (6) COPD (chronic obstructive pulmonary disease) Status: Chronic Priority: High (7) Congestive heart failure (CHF) Status: Acute Priority: High Comment: acute on chronic (8) Respiratory acidosis Status: Resolved Priority: High (9) Hypercapnemia Status: Resolved (10) Respiratory failure Status: Resolved (11) CAD (coronary artery disease) Status: Chronic (12) Constipation Status: Resolved (13) Urinary retention Status: Acute Comment: Swanson in place. (14) Swanson catheter in place Status: Chronic Hospital Course - Lab Results Lab Results: Most Recent Lab Values WBC 10.3 10^3/ul (4.5-11.0) 06/28/17 07:50 RBC 3.81 10^6/uL (3.5-6.1) 06/28/17 07:50 Hgb 11.0 g/dL (14.0-18.0) L 06/28/17 07:50 Hct 35.3 % (42.0-52.0) L 06/28/17 07:50 MCV 92.7 fl (80.0-105.0) 06/28/17 07:50 MCH 28.9 pg (25.0-35.0) 06/28/17 07:50 MCHC 31.2 g/dl (31.0-37.0) 06/28/17 07:50 RDW 17.0 % (11.5-14.5) H 06/28/17 07:50 Plt Count 107 10^3/uL (120.0-450.0) L 06/28/17 07:50 MPV 11.5 fl (7.0-11.0) H 06/28/17 07:50 Gran % 79.8 % (50.0-68.0) H 06/28/17 07:50 Lymph % (Auto) 11.1 % (22.0-35.0) L 06/28/17 07:50 [place] % (Auto) 7.8 % (1.0-6.0) H 06/28/17 07:50 Eos % (Auto) 1.3 % (1.5-5.0) L 06/28/17 07:50 Baso % (Auto) 0.0 % (0.0-3.0) 06/28/17 07:50 Gran # 8.24 (1.4-6.5) H 06/28/17 07:50 Lymph # 1.2 (1.2-3.4) 06/28/17 07:50 [place] # 0.8 (0.1-0.6) H 06/28/17 07:50 Eos # 0.1 (0.0-0.7) 06/28/17 07:50 Baso # 0.00 K/mm3 (0.0-2.0) 06/28/17 07:50 Sodium 145 mmol/L (132-148) 06/28/17 07:50 Potassium 4.2 mmol/L (3.6-5.0) 06/28/17 07:50 Chloride 104 mmol/L (98-107) 06/28/17 07:50 Carbon Dioxide 38 mmol/L (21-33) H 06/28/17 07:50 Anion Gap 7 (10-20) L 06/28/17 07:50 BUN 35 mg/dL (7-21) H 06/28/17 07:50 Creatinine 1.0 mg/dL (0.5-1.4) 06/28/17 07:50 Est GFR ( Amer) > 60 06/28/17 07:50 Est GFR (Non-Af Amer) > 60 06/28/17 07:50 Random Glucose 74 mg/dL (70-110) 06/28/17 07:50 Calcium 8.0 mg/dL (8.4-10.5) L 06/28/17 07:50 Phosphorus 2.5 mg/dL (2.5-4.5) 06/28/17 07:50 Magnesium 1.7 mg/dL (1.7-2.2) 06/28/17 07:50 Total Bilirubin 1.2 mg/dL (0.2-1.3) 06/28/17 07:50 AST 23 U/L (17-59) 06/28/17 07:50 ALT 28 U/L (7-56) 06/28/17 07:50 Alkaline Phosphatase 140 U/L (38-126) H 06/28/17 07:50 Total Protein 5.4 g/dL (5.8-8.3) L 06/28/17 07:50 Albumin 2.7 g/dL (3.0-4.8) L 06/28/17 07:50 Globulin 2.6 gm/dL 06/28/17 07:50 Albumin/Globulin Ratio 1.0 (1.1-1.8) L 06/28/17 07:50 - Hospital Course Hospital Course: Patient is an 87 yo M with PMH of COPD, CHF, HTN, DM, NSTEMI, and PAD originally presented to ED by EMS for unresponsvieness, pinpoint pupils, AMS. Patient was intubated in the ER for hypercapnic respiratory failure and transferred to ICU. Patient was noted to have NSTEMI and COPD exacerbation, as well as infected chronic venous stasis ulcerations on b/l LE, all of which were likely the combined causes of his AMS. Patient was extubated on hospital day 3, when his respiratory status improved, but continued to have AMS. Patient's mental status improved the following day, and he was transferred out of the ICU. During his hospitalization, he also had surgery with podiatry for debridement of his RLE. Afterwards, he was discharged to the TCU for rehabilitation for weakness and deconditioning, while slowly tapering off steroids and completing the course of antibiotics. His TCU stay was complicated by constipation, which resolved, and urinary retention. He failed a voiding trial two days ago, and will require an indwelling Swanson and outpatient follow up with urology. Today, patient feels well without any particular complaints. Patient denies any CP, SOB, N/V/D, abdominal pain, F/C. He is awake, alert, and oriented to person , place and time. He is mentation improved, and has returned to his baseline. Patient's condition and medications were discussed, all questions answered to his satisfaction. He should continue to taper down slowly on the steroids. This was explained to patient and patient's son whom was at the bed side. Patient and son verbalized understanding. Patient to be discharged and to follow up with the physicians listed below. Diet: carb controlled, 2 gr sodium diet. Activity: as tolerated. c/w PT. - Date & Time of H&P Date of H&P: 06/24/17 Time of H&P: 03:19 Discharge Exam - Head Exam Head Exam: ATRAUMATIC, NORMAL INSPECTION, NORMOCEPHALIC - Eye Exam Eye Exam: EOMI, Normal appearance, PERRL. absent: Scleral icterus Pupil Exam: NORMAL ACCOMODATION - ENT Exam ENT Exam: Mucous Membranes Moist - Neck Exam Neck exam: Full Rom, Normal Inspection - Respiratory Exam Respiratory Exam: Clear to PA & Lateral, NORMAL BREATHING PATTERN, UNREMARKABLE. absent: Rales, Rhonchi, Wheezes, Respiratory Distress, Stridor - Cardiovascular Exam Cardiovascular Exam: REGULAR RHYTHM, +S1, +S2, Systolic Murmur. absent: Gallop , JVD, Rubs - GI/Abdominal Exam GI & Abdominal Exam: Normal Bowel Sounds, Unremarkable. absent: Distended, Firm , Guarding, Rigid, Soft, Tenderness - Extremities Exam Extremities exam: pedal edema Additional comments: LE edema improved, wrapped in clean dressing. No drainage noted. - Neurological Exam Neurological exam: Alert, Oriented x3 - Psychiatric Exam Psychiatric exam: Normal Affect, Normal Mood - Skin Skin Exam: Abrasion (thourhgout the body, no signs of acute infection. ), Dry, Intact, Warm Discharge Plan - Discharge Medications Prescriptions: Ammonium Lactate 12% [Lac-Hydrin 12% Cream (140 g)] 1 appl TOP Q12 30 Days Aspirin [Ecotrin] 81 mg PO 0800 #30 Atorvastatin [Lipitor] 10 mg PO DIN #30 tab Ergocalciferol [Drisdol 50,000 Intl Units Cap] 1 cap PO QWK #4 cap Furosemide [Lasix] 40 mg PO QOTHERDAY #15 tablet Furosemide [Lasix] 20 mg PO DAILY #30 tab Isosorbide Mononitrate [Imdur] 60 mg PO DAILY #30 tab Methylprednisolone [Medrol Dose Pack (21 tabs)] 4 mg PO ONCE #21 mg Metoprolol Tartrate [Lopressor] 50 mg PO 0800,1800 #60 tab Tamsulosin [Flomax] 0.4 mg PO 1800 #30 cap - Follow Up Plan Condition: FAIR Disposition: HOME/ ROUTINE Instructions: Heart Failure (DC), COPD (Chronic Obstructive Pulmonary Disease) (DC), Chronic Wound Care (DC), Altered Mental Status (GEN) Additional Instructions: 1. Continue to take prednisone until course is complete, as prescribed by Dr. Hope - paper script provided 2. Continue to take inhalers, as prescribed by Dr. Hope - paper script provided 3. New prescriptions provided for one month supply of all medications, take as prescribed by hospital, instead of the medications you have at home, including taking Lasix 40 mg one day and the next day 20 mg, repeat; once Imdur, and Metoprolol. Discontinue other blood pressure medications you had before. [facility] [address] 4. Continue to apply LacHydrin ointment to legs twice daily and cover with clean dressings only 5. Follow up with Dr. Hope (pulmonology) within one week 6. Follow up with Dr. Gomez (cardiology) as indicated 7. Follow up with Dr. Orona (urology) within one week for repeat voiding trial and further management and workup of urinary retention 8. Follow up with Dr. Buitrago (podiatry) as indicated, for leg ulcers 9. Follow up with Dr. Nj (nephrology) as indicated, for chronic kidney disease 10. Follow up with PCP within one week 11. For any new or worsening concerns, contact PCP immediately or return to ER Referrals: Lina Jarrett MD [Staff Provider] - Siri Buitrago DPM [Staff Provider] - Edvin Nj MD [Staff Provider] - Seth Gomez MD [Staff Provider] - Seven Hope MD [Staff Provider] - Marcus Orona MD [Staff Provider] - <Lina Jarrett - Last Filed: 06/30/17 14:13> Provider - Provider Date of Admission: 06/23/17 17:21 Attending physician: Lina Jarrett MD Hospital Course - Lab Results Lab Results: Most Recent Lab Values WBC 10.3 10^3/ul (4.5-11.0) 06/28/17 07:50 RBC 3.81 10^6/uL (3.5-6.1) 06/28/17 07:50 Hgb 11.0 g/dL (14.0-18.0) L 06/28/17 07:50 Hct 35.3 % (42.0-52.0) L 06/28/17 07:50 MCV 92.7 fl (80.0-105.0) 06/28/17 07:50 MCH 28.9 pg (25.0-35.0) 06/28/17 07:50 MCHC 31.2 g/dl (31.0-37.0) 06/28/17 07:50 RDW 17.0 % (11.5-14.5) H 06/28/17 07:50 Plt Count 107 10^3/uL (120.0-450.0) L 06/28/17 07:50 MPV 11.5 fl (7.0-11.0) H 06/28/17 07:50 Gran % 79.8 % (50.0-68.0) H 06/28/17 07:50 Lymph % (Auto) 11.1 % (22.0-35.0) L 06/28/17 07:50 [place] % (Auto) 7.8 % (1.0-6.0) H 06/28/17 07:50 Eos % (Auto) 1.3 % (1.5-5.0) L 06/28/17 07:50 Baso % (Auto) 0.0 % (0.0-3.0) 06/28/17 07:50 Gran # 8.24 (1.4-6.5) H 06/28/17 07:50 Lymph # 1.2 (1.2-3.4) 06/28/17 07:50 [place] # 0.8 (0.1-0.6) H 06/28/17 07:50 Eos # 0.1 (0.0-0.7) 06/28/17 07:50 Baso # 0.00 K/mm3 (0.0-2.0) 06/28/17 07:50 Sodium 145 mmol/L (132-148) 06/28/17 07:50 Potassium 4.2 mmol/L (3.6-5.0) 06/28/17 07:50 Chloride 104 mmol/L (98-107) 06/28/17 07:50 Carbon Dioxide 38 mmol/L (21-33) H 06/28/17 07:50 Anion Gap 7 (10-20) L 06/28/17 07:50 BUN 35 mg/dL (7-21) H 06/28/17 07:50 Creatinine 1.0 mg/dL (0.5-1.4) 06/28/17 07:50 Est GFR ( Amer) > 60 06/28/17 07:50 Est GFR (Non-Af Amer) > 60 06/28/17 07:50 Random Glucose 74 mg/dL (70-110) 06/28/17 07:50 Calcium 8.0 mg/dL (8.4-10.5) L 06/28/17 07:50 Phosphorus 2.5 mg/dL (2.5-4.5) 06/28/17 07:50 Magnesium 1.7 mg/dL (1.7-2.2) 06/28/17 07:50 Total Bilirubin 1.2 mg/dL (0.2-1.3) 06/28/17 07:50 AST 23 U/L (17-59) 06/28/17 07:50 ALT 28 U/L (7-56) 06/28/17 07:50 Alkaline Phosphatase 140 U/L (38-126) H 06/28/17 07:50 Total Protein 5.4 g/dL (5.8-8.3) L 06/28/17 07:50 Albumin 2.7 g/dL (3.0-4.8) L 06/28/17 07:50 Globulin 2.6 gm/dL 06/28/17 07:50 Albumin/Globulin Ratio 1.0 (1.1-1.8) L 06/28/17 07:50 Attending/Attestation - Attestation I have personally seen and examined this patient.: Yes I have fully participated in the care of the patient.: Yes I have reviewed all pertinent clinical information, including history, physical exam and plan: Yes Notes (Text): 06/30/17 14:09 87 year old male with extensive medical history and extended hospital course as above. Patient has been doing well with physical therapy in TCU. He has been followed up with by cardiology, pulmonary, ID, podiatry, and nephrology. Overall his symptoms have improved and he is stable for discharge today. He is to follow up with his pmd. Follow up with pulmonary and cardiology. Continue with swanson care and follow up with urology for voiding trial. Lina Jarrett MD Hospitalist.
--- NOTE | 2017-06-30 15:13 | PN ---
DATE: 06/30/2017 SUBJECTIVE: The patient is seen, sitting in a chair, in the transitional care unit. He is comfortable at the present time. A Wong catheter remains in place. He has apparently had recurrent urinary retention. Otherwise, he feels comfortable. He denies any chest pain or dyspnea. CURRENT MEDICATIONS: Include DuoNeb inhaler, Ecotrin 81 mg daily, Flomax 0.4 mg daily, Imdur 60 mg daily, Lasix 40 mg every other day alternating with 20 mg every other day, Lipitor 10 mg daily, metoprolol 50 mg b.i.d., MiraLax p.r.n., Pepcid and prednisone 20 mg daily. PHYSICAL EXAMINATION: GENERAL: He is an elderly man who appears comfortable at the present time. VITAL SIGNS: Blood pressure is 110/56 with pulse of 72, respirations are 14 and he is afebrile. HEENT: No JVD. CHEST: Bilateral scattered rhonchi. HEART: PMI displaced laterally with soft tones noted. ABDOMEN: Soft and nontender. Normoactive bowel sounds. EXTREMITIES: Both lower extremities are wrapped. DIAGNOSTIC DATA: Morning blood workup pending. IMPRESSION: 1. Recent respiratory failure, clinically improved at present. 2. Severe chronic obstructive pulmonary disease. 3. Coronary artery disease, status post remote myocardial infarction, clinically stable at present. 4. Chronic renal insufficiency. 5. Urinary retention. 6. Chronic venous stasis with ulcerations. Continue with local wound care. RECOMMENDATIONS: Current medications can be continued; however, Lasix can be switched back to 40 mg once daily at this time. Continued sodium restriction was advised. In general, conservative cardiac medications will be continued for his cardiac issues. We will be happy to follow along as needed. Seth Gomez MD
== END 2017-06-30 14:12 | disposition home or self-care (01) | DRG 280 ==
LOC: TRCU 17:21
PROVIDERS: ADMIT Hospitalist; ATTEND Internal Medicine
PROC: F07Z9FZ Gait Training/Functional Ambulation Treatment using Assistive, Adaptive, Supportive or Protective Equipment (ICD-10-PCS; principal; 2017-06-24)
PROC: F07M6ZZ Therapeutic Exercise Treatment of Musculoskeletal System - Whole Body (ICD-10-PCS; 2017-06-24)
PROC: F08Z1ZZ Dressing Techniques Treatment (ICD-10-PCS; 2017-06-26)
PROC: F08Z2ZZ Grooming/Personal Hygiene Treatment (ICD-10-PCS; 2017-06-26)
PROC: F08Z4ZZ Home Management Treatment (ICD-10-PCS; 2017-06-26)
DX: I21.4 Non-ST elevation (NSTEMI) myocardial infarction (principal); J44.1 Chronic obstructive pulmonary disease with (acute) exacerbation; G93.41 Metabolic encephalopathy; J96.92 Respiratory failure, unspecified with hypercapnia; J18.9 Pneumonia, unspecified organism; N17.9 Acute kidney failure, unspecified; I13.0 Hypertensive heart and chronic kidney disease with heart failure and stage 1 through stage 4 chronic kidney disease, or unspecified chronic kidney disease; E87.0 Hyperosmolality and hypernatremia; E87.2 Acidosis; I50.22 Chronic systolic (congestive) heart failure; L03.115 Cellulitis of right lower limb; L03.116 Cellulitis of left lower limb; I87.2 Venous insufficiency (chronic) (peripheral); E11.22 Type 2 diabetes mellitus with diabetic chronic kidney disease; E55.9 Vitamin D deficiency, unspecified; E78.5 Hyperlipidemia, unspecified; E86.0 Dehydration; E87.5 Hyperkalemia; H91.90 Unspecified hearing loss, unspecified ear; I25.10 Atherosclerotic heart disease of native coronary artery without angina pectoris; I73.9 Peripheral vascular disease, unspecified; I87.8 Other specified disorders of veins; I25.2 Old myocardial infarction; D49.4 Neoplasm of unspecified behavior of bladder; B95.62 Methicillin resistant Staphylococcus aureus infection as the cause of diseases classified elsewhere; J84.10 Pulmonary fibrosis, unspecified; K59.00 Constipation, unspecified; N18.3 Chronic kidney disease, stage 3 (moderate); N28.1 Cyst of kidney, acquired; N40.1 Benign prostatic hyperplasia with lower urinary tract symptoms; R32 Unspecified urinary incontinence; R33.8 Other retention of urine; Z79.82 Long term (current) use of aspirin; Z87.891 Personal history of nicotine dependence

== ENCOUNTER 2018-01-17 16:49 | Inpatient (IN) | payer MEDICARE ==
[2018-01-17 16:50] VITALS: BMI 25.7
--- NOTE | 2018-01-17 17:22 | ED PDOC ---
Arrival/HPI - General Time Seen by Provider: 01/17/18 17:01 Historian: Patient, Other (home nurse ) - History of Present Illness Narrative History of Present Illness (Text): 01/17/18 17:17 A 87 year old male, whose past medical history includes CHF, presents to the emergency department complaining of progressively worsening shortness of breath. Visiting home nurse reports increase edema in lower extremities. She spoke with patients PMD who instructed them to come in for further evaluation. Patient denies any fever, chills, nausea, vomiting, abdominal pain, chest pain or any other complaints. PMD: Dr. Garcia Past Medical History - Provider Review Nursing Documentation Reviewed: Yes - Cardiac Hx Congestive Heart Failure: Yes Hx Hypertension: Yes - Pulmonary Hx Chronic Obstructive Pulmonary Disease (COPD): Yes - Neurological Hx Paralysis: No - HEENT Hx HEENT Disorder: Yes Hx Deafness: Yes ([place]) Other/Comment: glasses - Renal Hx Renal Disorder: No - Endocrine/Metabolic Hx Endocrine Disorders: No - Hematological/Oncological Hx Blood Transfusions: No - Integumentary Hx Dermatological Disorder: No - Musculoskeletal/Rheumatological Hx Falls: Yes - Gastrointestinal Hx Gastrointestinal Disorders: Yes - Genitourinary/Gynecological Hx Genitourinary Disorders: Yes - Psychiatric Hx Emotional Abuse: No Hx Physical Abuse: No Hx Substance Use: No - Surgical History Other/Comment: Stents in legs - Anesthesia Hx Anesthesia Reactions: No Hx Malignant Hyperthermia: No - Suicidal Assessment Feels Threatened In Home Enviroment: No Family/Social History - Physician Review Nursing Documentation Reviewed: Yes Family/Social History: No Known Family HX Smoking Status: Former Smoker Hx Alcohol Use: No Hx Substance Use: No Allergies/Home Meds Allergies/Adverse Reactions: Allergies No Known Allergies Allergy (Verified 06/23/17 20:00) Home Medications: Home Meds Medication Instructions Recorded Confirmed Tiotropium [Spiriva] 18 mcg IH BID 03/14/16 06/23/17 Review of Systems - Physician Review All systems were reviewed & negative as marked: Yes - Review of Systems Constitutional: absent: Fevers, Night Sweats Respiratory: SOB Cardiovascular: Edema. absent: Chest Pain Gastrointestinal: absent: Abdominal Pain, Nausea, Vomiting Physical Exam Vital Signs Reviewed: Yes Vital Signs Temp Pulse Resp BP Pulse Ox 01/17/18 21:23 90 18 155/87 H 92 L 03/29/18 20:09 18 97 01/17/18 19:41 147/80 01/17/18 18:54 92 H 18 153/90 H 94 L 01/17/18 17:58 148/92 H 01/17/18 17:02 98.2 F 97 H 18 148/92 H 91 L Temperature: Afebrile Blood Pressure: Hypertensive Pulse: Tachycardic Respiratory Rate: Normal Appearance: Positive for: Well-Appearing, Non-Toxic, Comfortable Pain Distress: None Mental Status: Positive for: Alert and Oriented X 3 - Systems Exam Head: Present: Atraumatic, Normocephalic Pupils: Present: PERRL Extroacular Muscles: Present: EOMI Conjunctiva: Present: Normal Mouth: Present: Moist Mucous Membranes Neck: Present: Normal Range of Motion, JVD Respiratory/Chest: Present: Good Air Exchange, Rales. No: Respiratory Distress , Accessory Muscle Use Cardiovascular: Present: Regular Rate and Rhythm, Normal S1, S2. No: Murmurs Abdomen: Present: Normal Bowel Sounds. No: Tenderness, Distention, Peritoneal Signs Back: Present: Normal Inspection Upper Extremity: Present: Normal Inspection. No: Cyanosis, Edema Lower Extremity: Present: NORMAL PULSES, Normal ROM. No: Edema (Elastic stockings noted on bilateral legs up to knees. No edema noted in thighs), CALF TENDERNESS Neurological: Present: GCS=15, CN II-XII Intact, Speech Normal Skin: Present: Warm, Dry, Normal Color. No: Rashes Psychiatric: Present: Alert, Oriented x 3, Normal Insight, Normal Concentration Medical Decision Making ED Course and Treatment: 01/17/18 17:17 Impression: A 87 year old male with shortness of breath Plan: -- -- Reassess and disposition Progress Notes: - RAD Interpretation Radiology Orders: 01/17/18 17:29 CHEST PORTABLE [RAD] Stat - Medication Orders Current Medication Orders: Albuterol/Ipratropium (Duoneb 3 Mg/0.5 Mg (3 Ml) Ud) 3 ml IH Q2H PRN PRN Reason: Shortness of Breath Albuterol/Ipratropium (Duoneb 3 Mg/0.5 Mg (3 Ml) Ud) 3 ml IH [id number] REEMA Aspirin (Ecotrin) 81 mg PO DAILY REEMA Atorvastatin Calcium (Lipitor) 10 mg PO DIN REEMA Ergocalciferol (Drisdol 50,000 Intl Units Cap) 1 cap PO QWK REEMA Furosemide (Lasix) 40 mg IVP Q12 REEMA Last Admin: 01/17/18 21:34 Dose: Heparin Sodium (Porcine) (Heparin) 5,000 units SC Q12 REEMA PRN Reason: Protocol Last Admin: 01/17/18 22:04 Dose: 5,000 units Subcutaneous Administrations Document 01/17/18 22:04 FDE (Rec: 01/17/18 22:04 FDE [facility] [id number]) Charges for Administration # of Subcutaneous Administrations 1 Isosorbide Mononitrate (Imdur) 60 mg PO DAILY REEMA Lactic Acid (Lac-Hydrin 12% Cream (140 G)) 0 ea TOP Q12 REEMA Last Admin: 01/17/18 21:35 Dose: Metoprolol Tartrate (Lopressor) 50 mg PO 0800,1800 REEMA Pantoprazole Sodium (Protonix Ec Tab) 40 mg PO 0600 REEMA Tamsulosin HCl (Flomax) 0.4 mg PO 1800 REEMA Discontinued Medications Albuterol Sulfate (Albuterol 0.083% Inhal [place] (2.5 Mg/3 Ml) Ud) 2.5 mg INH STAT STA Stop: 01/17/18 17:30 Last Admin: 01/17/18 17:58 Dose: 2.5 mg Furosemide (Lasix) 40 mg IVP STAT STA Stop: 01/17/18 17:30 Last Admin: 01/17/18 17:58 Dose: 40 mg MAR Blood Pressure Document 01/17/18 17:58 EQ (Rec: 01/17/18 17:58 EQ [id number]) Blood Pressure Blood Pressure (100/60-150/90) 148/92 IVP Administration Document 01/17/18 17:58 EQ (Rec: 01/17/18 17:58 EQ [id number]) Charges for Administration # of IVP Administrations 1 Furosemide (Lasix) 40 mg IVP STAT STA Stop: 01/17/18 19:06 Last Admin: 01/17/18 19:41 Dose: 40 mg MAR Blood Pressure Document 01/17/18 19:41 RG (Rec: 01/17/18 19:42 RG [id number]) Blood Pressure Blood Pressure (100/60-150/90) 147/80 IVP Administration Document 01/17/18 19:41 RG (Rec: 01/17/18 19:42 RG [id number]) Charges for Administration # of IVP Administrations 1 - PA / CANCER GENETIC COUNSELOR / Resident Statement MD/DO has reviewed & agrees with the documentation as recorded. - Scribe Statement The provider has reviewed the documentation as recorded by the Scribe Keyonna Eden Provider Scribe Attestation: All medical record entries made by the Scribe were at my direction and personally dictated by me. I have reviewed the chart and agree that the record accurately reflects my personal performance of the history, physical exam, medical decision making, and the department course for this patient. I have also personally directed, reviewed, and agree with the discharge instructions and disposition. Disposition/Present on Arrival - Present on Arrival Any Indicators Present on Arrival: No History of DVT/PE: No History of Uncontrolled Diabetes: No Urinary Catheter: Yes History Surgical Site Infection Following: None - Disposition Have Diagnosis and Disposition been Completed?: Yes Diagnosis: Congestive heart failure (CHF) Disposition: HOSPITALIZED Disposition Time: 21:00 Patient Plan: Admission, Telemetry Condition: GOOD
[2018-01-17] MEDS ORDERED: Albuterol 0.083% Inhal Sol (2.5 mg/3 mL) UD INH STA (17:29)
[2018-01-17 18:21] LABS: BASO # 0.02 K/mm3 (0.0-2.0); BASO % 0.3 % (0.0-3.0); EOS # 0.1 (0.0-0.7); EOS % 1.8 % (1.5-5.0); GRAN # 4.18 (1.4-6.5); GRAN % 66.9 % (50.0-68.0); LYMPH # 1.1 (1.2-3.4); LYMPH % 17.9 % (22.0-35.0); MEAN CELL VOLUME 87.2 fl (80.0-105.0); MEAN CORPUSCULAR HEMOGLOBIN 26.5 pg (25.0-35.0); MEAN CORPUSCULAR HGB CONC 30.5 g/dl (31.0-37.0); MEAN PLATELET VOLUME 9.4 fl (7.0-11.0); MONO # 0.8 (0.1-0.6); MONO % 13.1 % (1.0-6.0); RBC 4.52 10^6/uL (3.5-6.1); RED CELL DISTRIBUTION WIDTH 17.5 % (11.5-14.5); WHITE BLOOD COUNT 6.3 10^3/ul (4.5-11.0)
[2018-01-17 18:29] LABS: INR 1.33 (0.93-1.08); PROTHROMBIN TIME 15.3 SECONDS (9.4-12.5)
[2018-01-17 18:32] LABS: ALB/GLOB RATIO 0.8 (1.1-1.8); ALBUMIN 3.3 g/dL (3.0-4.8); ALT/SGPT 17 U/L (7-56); AST/SGOT 24 U/L (17-59); BLOOD UREA NITROGEN 13 mg/dL (7-21); CALCIUM 9.1 mg/dL (8.4-10.5); GFR AFRICAN-AMERICAN > 60; GFR NON-AFRICAN AMERICAN > 60
[2018-01-17 18:44] LABS: B-TYPE NATRIURETIC PEPTIDE 20000 pg/mL (0-450); TROPONIN I 0.04 ng/mL
[2018-01-17] MEDS: Ammonium Lactate 12% Cream (140 g) TOP SCH (21:35)
--- NOTE | 2018-01-17 21:45 | CARD ---
APPROVED REPORT EKG Measurement Heart [id number] <Conclusion> Sinus rhythm with PVCs Inferior infarct, age undetermined ST & T wave abnormality, consider lateral ischemia Abnormal ECG
[2018-01-17 22:04] LABS: ARTERIAL BLOOD GAS HCO3 31.3 mmol/L (21-28); ARTERIAL BLOOD GAS O2 SAT 91.7 % (95-98); ARTERIAL BLOOD GAS PCO2 45 mm/Hg (35-45); ARTERIAL BLOOD GAS PH 7.45 (7.35-7.45); ARTERIAL BLOOD GAS TCO2 32.7 mmol.L (22-28)
--- NOTE | 2018-01-18 00:25 | CP.PCM.HP ---
<Fransisco Elliott - Last Filed: 01/18/18 00:17> History of Present Illness - History of Present Illness History of Present Illness: CC: Dyspnea Pt is a 87 yo M with PMH of NSTEMI, CAD, CHF (EF 17%), COPD, HTN, Paget's disease of bone, PAD, bladder tumor with urinary retention, anemia, DM, chronic venous stasis ulcers presents to [facility] due to worsening shortness of breath. Pt has home visiting nurse, who noticed increased dyspnea and worsening edema in b/ l LE. She discussed the patient with his PMD, who recommended he be evaluated in the ED. Pt states that he is short of breath at baseline and is O2 dependent at home. Pt becomes short of breath when he walks with his walker, but denies dyspnea at rest. Pt requires his head to be elevated when he sleeps. Pt denies CP, n/v/d, abdominal pain, fever, chills, FULLER, or dizziness. PMH: NSTEMI, CHF (EF 17%), COPD, CAD, HTN, Paget's disease of bone, PAD, bladder tumor with urinary retention, anemia, DM, chronic venous stasis ulcers PSH: B/l LE arterial shunt FHx: Noncontributory SH: Admits to 1 ppd for 60 yrs; denied EtOH and illicit drug use All: NKDA Medications as per DEC PMD: Dr. Garcia Present on Admission - Present on Admission Any Indicators Present on Admission: No Review of Systems - Review of Systems Review of Systems: 12 point ROS reviewed and is negative other than what is stated in HPI. Past Patient History - Past Social History Smoking Status: Current Some Days Smoker - CARDIAC Hx Cardiac Disorders: Yes Hx Congestive Heart Failure: Yes Hx Hypertension: Yes Hx Peripheral Edema: Yes Hx Peripheral Vascular Disease: Yes (two stent to right and one to left as per pt) - PULMONARY Hx Respiratory Disorders: Yes Hx Chronic Obstructive Pulmonary Disease (COPD): Yes - NEUROLOGICAL Hx Neurological Disorder: No - HEENT Hx HEENT Problems: Yes (uses glasses) Hx Deafness: Yes (Hard of hearing) - RENAL Hx Chronic Kidney Disease: No (DENIES) - ENDOCRINE/METABOLIC Hx Endocrine Disorders: No (DENIES) - HEMATOLOGICAL/ONCOLOGICAL Hx Blood Disorders: No - INTEGUMENTARY Hx Dermatological Problems: Yes (DRY AND SCALY SKIN) - MUSCULOSKELETAL/RHEUMATOLOGICAL Hx Falls: Yes - GASTROINTESTINAL Hx Gastrointestinal Disorders: No (DENIES) - GENITOURINARY/GYNECOLOGICAL Hx Genitourinary Disorders: Yes Hx Prostate Problems: Yes - PSYCHIATRIC Hx Substance Use: No - SURGICAL HISTORY Hx Surgeries: Yes (STENT TO THE LEGS) - ANESTHESIA Hx Anesthesia Reactions: No Hx Malignant Hyperthermia: No Meds Allergies/Adverse Reactions: Allergies Allergy/AdvReac Type Severity Reaction Status Date / Time No Known Allergies Allergy Verified 06/23/17 20:00 Physical Exam - Constitutional Appears: No Acute Distress - Head Exam Head Exam: NORMAL INSPECTION - Eye Exam Eye Exam: Normal appearance - ENT Exam ENT Exam: Mucous Membranes Moist - Neck Exam Neck exam: Positive for: Normal Inspection - Respiratory Exam Respiratory Exam: Rales. absent: Decreased Breath Sounds, Rhonchi, Wheezes, Respiratory Distress - Cardiovascular Exam Cardiovascular Exam: Diastolic murmur, RRR, +S1, +S2, Systolic Murmur. absent: Gallop, Rubs - GI/Abdominal Exam GI & Abdominal Exam: Soft. absent: Distended, Guarding, Rebound, Tenderness - Extremities Exam Additional comments: chronic ulcers b/l LE, 2+ edema - Back Exam Back exam: NORMAL INSPECTION - Neurological Exam Neurological exam: Alert, CN II-XII Intact, Oriented x3 - Psychiatric Exam Psychiatric exam: Normal Affect, Normal Mood - Skin Skin Exam: Dry, Intact, Normal Color, Warm Results - Vital Signs Recent Vital Signs: Last Vital Signs Temp 98.4 F 01/17/18 23:56 Pulse 90 01/18/18 00:15 Resp 20 01/17/18 23:56 BP 171/79 H 01/18/18 00:15 Pulse Ox 94 L 01/17/18 23:56 - Labs Result Diagrams: 01/17/18 18:00 01/17/18 18:00 Labs: Laboratory Results - last 24 hr 01/17/18 01/17/18 01/17/18 18:00 18:00 18:00 WBC 6.3 D RBC 4.52 Hgb 12.0 L Hct 39.4 L MCV 87.2 D MCH 26.5 MCHC 30.5 L RDW 17.5 H Plt Count 265 MPV 9.4 Gran % 66.9 Lymph % (Auto) 17.9 L [place] % (Auto) 13.1 H Eos % (Auto) 1.8 Baso % (Auto) 0.3 Gran # 4.18 Lymph # (Auto) 1.1 L [place] # (Auto) 0.8 H Eos # (Auto) 0.1 Baso # (Auto) 0.02 PT 15.3 H INR 1.33 H pCO2 pO2 HCO3 ABG pH ABG Total CO2 ABG O2 Saturation ABG Base Excess ABG Potassium Glucose Lactate FiO2 Sodium 146 Potassium 4.6 Chloride 105 Carbon Dioxide 32 Anion Gap 13 BUN 13 Creatinine 1.1 Est GFR ( Amer) > 60 Est GFR (Non-Af Amer) > 60 Random Glucose 108 Calcium 9.1 Total Bilirubin 0.9 AST 24 ALT 17 Alkaline Phosphatase 260 H D Lactate Dehydrogenase 429 Total Creatine Kinase 43 Troponin I 0.04 D NT-Pro-B Natriuret Pep 16056 H Total Protein 7.5 Albumin 3.3 Globulin 4.2 Albumin/Globulin Ratio 0.8 L Arterial Blood Potassium 01/17/18 22:02 WBC RBC Hgb Hct MCV MCH MCHC RDW Plt Count MPV Gran % Lymph % (Auto) [place] % (Auto) Eos % (Auto) Baso % (Auto) Gran # Lymph # (Auto) [place] # (Auto) Eos # (Auto) Baso # (Auto) PT INR pCO2 45 pO2 54.0 L HCO3 31.3 H ABG pH 7.45 ABG Total CO2 32.7 H ABG O2 Saturation 91.7 L ABG Base Excess 6.4 H ABG Potassium 3.7 Glucose 97 Lactate 1.4 FiO2 32.0 Sodium 144.0 Potassium Chloride 110.0 H Carbon Dioxide Anion Gap BUN Creatinine Est GFR ( Amer) Est GFR (Non-Af Amer) Random Glucose Calcium Total Bilirubin AST ALT Alkaline Phosphatase Lactate Dehydrogenase Total Creatine Kinase Troponin I NT-Pro-B Natriuret Pep Total Protein Albumin Globulin Albumin/Globulin Ratio Arterial Blood Potassium 3.7 Assessment & Plan - Assessment and Plan (Free Text) Assessment: 87 yo M with PMH of NSTEMI, CAD, CHF (EF 17%), COPD, HTN, Paget's disease of bone, PAD, bladder tumor with urinary retention, anemia, DM, chronic venous stasis ulcers admitted for CHF exacerbation. Plan: 1. Acute systolic CHF exacerbation - BNP 61696 - Troponin negative x1, will trend x2 - CXR showed vascular congestion - EKG showed sinus rhythm with PAC, inferior infarct age undetermined, inverted T waves on lateral leads - Echo (06/14/17) showed EF 17.3%, moderate concentric left ventricular hypertrophy, global hypokinesis, severly calcified aortic valve, moderate to severe AR, moderate to severe MR, mild to moderate pulmonary HTN - Echo ordered - Strict I's and O's - Daily weights - Head of bed to 30 degrees - Lasix 40 mg IVP q12h - Lopressor 50 mg PO BID - Imdur 60 mg PO daily - Cardiology consulted 2. CAD - ASA 81 - Lipitor 10 mg daily 3. HTN - Lopressor 4. COPD - ABG shows pH 7.45 with some hypoxia, but no CO2 retention - Duoneb tomer and prn - O2 via NC 2L - Maintain O2 sat 88-95% 5. H/o chronic venous stasis ulcers - Podiatry consulted 6. H/o BPH - Flomax GI/DVT PPx - Protonix - Heparin SC Pt seen and discussed in detail with Dr. Shelton. Kali Elliott, PGY1 <Nicole Shelton - Last Filed: 01/18/18 01:12> Results - Vital Signs Recent Vital Signs: Last Vital Signs Temp 98.4 F 01/17/18 23:56 Pulse 90 01/18/18 00:15 Resp 20 01/17/18 23:56 BP 171/79 H 01/18/18 00:15 Pulse Ox 94 L 01/17/18 23:56 - Labs Result Diagrams: 01/17/18 18:00 01/17/18 18:00 Labs: Laboratory Results - last 24 hr 01/17/18 01/17/18 01/17/18 18:00 18:00 18:00 WBC 6.3 D RBC 4.52 Hgb 12.0 L Hct 39.4 L MCV 87.2 D MCH 26.5 MCHC 30.5 L RDW 17.5 H Plt Count 265 MPV 9.4 Gran % 66.9 Lymph % (Auto) 17.9 L [place] % (Auto) 13.1 H Eos % (Auto) 1.8 Baso % (Auto) 0.3 Gran # 4.18 Lymph # (Auto) 1.1 L [place] # (Auto) 0.8 H Eos # (Auto) 0.1 Baso # (Auto) 0.02 PT 15.3 H INR 1.33 H pCO2 pO2 HCO3 ABG pH ABG Total CO2 ABG O2 Saturation ABG Base Excess ABG Potassium Glucose Lactate FiO2 Sodium 146 Potassium 4.6 Chloride 105 Carbon Dioxide 32 Anion Gap 13 BUN 13 Creatinine 1.1 Est GFR ( Amer) > 60 Est GFR (Non-Af Amer) > 60 Random Glucose 108 Calcium 9.1 Total Bilirubin 0.9 AST 24 ALT 17 Alkaline Phosphatase 260 H D Lactate Dehydrogenase 429 Total Creatine Kinase 43 Troponin I 0.04 D NT-Pro-B Natriuret Pep 86893 H Total Protein 7.5 Albumin 3.3 Globulin 4.2 Albumin/Globulin Ratio 0.8 L Arterial Blood Potassium 01/17/18 22:02 WBC RBC Hgb Hct MCV MCH MCHC RDW Plt Count MPV Gran % Lymph % (Auto) [place] % (Auto) Eos % (Auto) Baso % (Auto) Gran # Lymph # (Auto) [place] # (Auto) Eos # (Auto) Baso # (Auto) PT INR pCO2 45 pO2 54.0 L HCO3 31.3 H ABG pH 7.45 ABG Total CO2 32.7 H ABG O2 Saturation 91.7 L ABG Base Excess 6.4 H ABG Potassium 3.7 Glucose 97 Lactate 1.4 FiO2 32.0 Sodium 144.0 Potassium Chloride 110.0 H Carbon Dioxide Anion Gap BUN Creatinine Est GFR ( Amer) Est GFR (Non-Af Amer) Random Glucose Calcium Total Bilirubin AST ALT Alkaline Phosphatase Lactate Dehydrogenase Total Creatine Kinase Troponin I NT-Pro-B Natriuret Pep Total Protein Albumin Globulin Albumin/Globulin Ratio Arterial Blood Potassium 3.7 Attending/Attestation - Attestation I have personally seen and examined this patient.: Yes I have fully participated in the care of the patient.: Yes I have reviewed all pertinent clinical information: Yes Notes (Text): 01/18/18 01:07 Patient was seen when he was in bed # 13 in the ER. Agree with history, physical examination, assessment and plan.
[2018-01-18] MEDS: Albuterol-Ipratrop 3 mg / 0.5 (3 ml) UD IH SCH ×4 (01:07→19:52)
[2018-01-18] MEDS: Pantoprazole 40 mg EC Tab PO SCH (05:20)
[2018-01-18 06:31] LABS: HEMOGLOBIN 10.8 g/dL (14.0-18.0); MEAN CELL VOLUME 87.2 fl (80.0-105.0); MEAN CORPUSCULAR HEMOGLOBIN 26.1 pg (25.0-35.0); MEAN CORPUSCULAR HGB CONC 29.9 g/dl (31.0-37.0); MEAN PLATELET VOLUME 9.6 fl (7.0-11.0); RBC 4.14 10^6/uL (3.5-6.1); RED CELL DISTRIBUTION WIDTH 17.7 % (11.5-14.5); WHITE BLOOD COUNT 5.9 10^3/ul (4.5-11.0)
[2018-01-18 07:06] LABS: ALB/GLOB RATIO 0.8 (1.1-1.8); ALT/SGPT 17 U/L (7-56); AST/SGOT 22 U/L (17-59); BLOOD UREA NITROGEN 14 mg/dL (7-21); CALCIUM 8.8 mg/dL (8.4-10.5); GFR AFRICAN-AMERICAN > 60; GFR NON-AFRICAN AMERICAN > 60
--- NOTE | 2018-01-18 08:20 | RAD ---
HISTORY: Dyspnea COMPARISON: 06/23/2017 FINDINGS: LUNGS: Pulmonary vascular congestion. PLEURA: No significant pleural effusion identified, no pneumothorax apparent. CARDIOVASCULAR: Cardiomegaly/moderate CHF OSSEOUS STRUCTURES: No significant abnormalities. VISUALIZED UPPER ABDOMEN: Normal. OTHER FINDINGS: None. IMPRESSION: Cardiomegaly/acute congestive heart failure.
--- NOTE | 2018-01-18 12:41 | CP.PCM.CON ---
<Radha Marmolejo - Last Filed: 01/18/18 12:54> History of Present Illness - History of Present Illness History of Present Illness: 87 y/o male known to Dr. Cummings's service seen at bedside for bilateral venous stasis leg ulcerations with resolving cellulitis to both lower extremities. Pt states he came into the hospital because he was feeling short of breath. Says his dressings were last changed by his visiting nurse yesterday before he came to the hospital. Review of Systems - Review of Systems All systems: reviewed and no additional remarkable complaints except (per HPI) Past Patient History - Past Social History Smoking Status: Current Some Days Smoker - CARDIAC Hx Cardiac Disorders: Yes Hx Congestive Heart Failure: Yes Hx Hypertension: Yes Hx Peripheral Edema: Yes Hx Peripheral Vascular Disease: Yes (two stent to right and one to left as per pt) - PULMONARY Hx Respiratory Disorders: Yes (intubation ,02 dependent at home) - NEUROLOGICAL Hx Neurological Disorder: No - HEENT Hx HEENT Problems: Yes (uses glasses) Hx Deafness: Yes (Hard of hearing) - RENAL Hx Chronic Kidney Disease: No (DENIES) - ENDOCRINE/METABOLIC Hx Endocrine Disorders: No (DENIES) - HEMATOLOGICAL/ONCOLOGICAL Hx Blood Disorders: No - INTEGUMENTARY Hx Dermatological Problems: Yes (DRY AND SCALY SKIN) - MUSCULOSKELETAL/RHEUMATOLOGICAL Hx Falls: Yes - GASTROINTESTINAL Hx Gastrointestinal Disorders: No (DENIES) - GENITOURINARY/GYNECOLOGICAL Hx Genitourinary Disorders: Yes Hx Prostate Problems: Yes - PSYCHIATRIC Hx Substance Use: No - SURGICAL HISTORY Hx Surgeries: Yes (STENT TO THE LEGS) - ANESTHESIA Hx Anesthesia Reactions: No Hx Malignant Hyperthermia: No Meds Allergies/Adverse Reactions: Allergies Allergy/AdvReac Type Severity Reaction Status Date / Time No Known Allergies Allergy Verified 06/23/17 20:00 - Medications Medications: Current Medications Albuterol/Ipratropium (Duoneb 3 Mg/0.5 Mg (3 Ml) Ud) 3 ml IH Q2H PRN PRN Reason: Shortness of Breath Albuterol/Ipratropium (Duoneb 3 Mg/0.5 Mg (3 Ml) Ud) 3 ml IH [id number] [facility] Last Admin: 01/18/18 08:00 Dose: 3 ml Aspirin (Ecotrin) 81 mg PO DAILY [facility] [place] Last Admin: 01/18/18 10:58 Dose: 81 mg Atorvastatin Calcium (Lipitor) 10 mg PO DIN [facility] [place] Ergocalciferol (Drisdol 50,000 Intl Units Cap) 1 cap PO QWK [facility] [place] Furosemide (Lasix) 40 mg IVP Q12 [facility] [place] Last Admin: 01/18/18 10:59 Dose: 40 mg Heparin Sodium (Porcine) (Heparin) 5,000 units SC Q12 [facility] [place] PRN Reason: Protocol Last Admin: 01/18/18 10:59 Dose: 5,000 units Isosorbide Mononitrate (Imdur) 60 mg PO DAILY [facility] [place] Last Admin: 01/18/18 10:58 Dose: 60 mg Lactic Acid (Lac-Hydrin 12% Cream (140 G)) 0 ea TOP Q12 [facility] [place] Last Admin: 01/17/18 21:35 Dose: Not Given Metoprolol Tartrate (Lopressor) 50 mg PO 0800,1800 [facility] [place] Last Admin: 01/18/18 08:43 Dose: 50 mg Pantoprazole Sodium (Protonix Ec Tab) 40 mg PO 0600 [facility] [place] Last Admin: 01/18/18 05:20 Dose: 40 mg Tamsulosin HCl (Flomax) 0.4 mg PO 1800 [facility] [place] Tiotropium [place] (Spiriva) 18 mcg IH BID [facility] [place] Physical Exam - Constitutional Appears: Well, Non-toxic, No Acute Distress - Extremities Exam Additional comments: Dressings intact to B/L lower extremities with compression No strikethrough noted on bandages Pt able to wiggle toes without difficulty - Neurological Exam Neurological exam: Alert, Oriented x3 - Psychiatric Exam Psychiatric exam: Normal Affect, Normal Mood Results - Vital Signs Recent Vital Signs: Last Vital Signs Temp 98.3 F 01/18/18 08:09 Pulse 75 01/18/18 08:43 Resp 20 01/18/18 08:09 BP 133/56 L 01/18/18 10:59 Pulse Ox 92 L 01/18/18 08:09 - Labs Result Diagrams: 01/18/18 05:30 01/18/18 05:30 Labs: Laboratory Results - last 24 hr 01/17/18 01/17/18 01/17/18 18:00 18:00 18:00 WBC 6.3 D RBC 4.52 Hgb 12.0 L Hct 39.4 L MCV 87.2 D MCH 26.5 MCHC 30.5 L RDW 17.5 H Plt Count 265 MPV 9.4 Gran % 66.9 Lymph % (Auto) 17.9 L [place] % (Auto) 13.1 H Eos % (Auto) 1.8 Baso % (Auto) 0.3 Gran # 4.18 Lymph # (Auto) 1.1 L [place] # (Auto) 0.8 H Eos # (Auto) 0.1 Baso # (Auto) 0.02 PT 15.3 H INR 1.33 H pCO2 pO2 HCO3 ABG pH ABG Total CO2 ABG O2 Saturation ABG Base Excess ABG Potassium Glucose Lactate FiO2 Sodium 146 Potassium 4.6 Chloride 105 Carbon Dioxide 32 Anion Gap 13 BUN 13 Creatinine 1.1 Est GFR ( Amer) > 60 Est GFR (Non-Af Amer) > 60 Random Glucose 108 Calcium 9.1 Phosphorus Magnesium Total Bilirubin 0.9 AST 24 ALT 17 Alkaline Phosphatase 260 H D Lactate Dehydrogenase 429 Total Creatine Kinase 43 Troponin I 0.04 D NT-Pro-B Natriuret Pep 22867 H Total Protein 7.5 Albumin 3.3 Globulin 4.2 Albumin/Globulin Ratio 0.8 L Arterial Blood Potassium 01/17/18 01/18/18 01/18/18 22:02 01:50 05:30 WBC 5.9 RBC 4.14 Hgb 10.8 L Hct 36.1 L MCV 87.2 MCH 26.1 MCHC 29.9 L RDW 17.7 H Plt Count 253 MPV 9.6 Gran % Lymph % (Auto) [place] % (Auto) Eos % (Auto) Baso % (Auto) Gran # Lymph # (Auto) [place] # (Auto) Eos # (Auto) Baso # (Auto) PT INR pCO2 45 pO2 54.0 L HCO3 31.3 H ABG pH 7.45 ABG Total CO2 32.7 H ABG O2 Saturation 91.7 L ABG Base Excess 6.4 H ABG Potassium 3.7 Glucose 97 Lactate 1.4 FiO2 32.0 Sodium 144.0 Potassium Chloride 110.0 H Carbon Dioxide Anion Gap BUN Creatinine Est GFR ( Amer) Est GFR (Non-Af Amer) Random Glucose Calcium Phosphorus Magnesium Total Bilirubin AST ALT Alkaline Phosphatase Lactate Dehydrogenase Total Creatine Kinase Troponin I 0.06 D NT-Pro-B Natriuret Pep Total Protein Albumin Globulin Albumin/Globulin Ratio Arterial Blood Potassium 3.7 01/18/18 01/18/18 05:30 05:30 WBC RBC Hgb Hct MCV MCH MCHC RDW Plt Count MPV Gran % Lymph % (Auto) [place] % (Auto) Eos % (Auto) Baso % (Auto) Gran # Lymph # (Auto) [place] # (Auto) Eos # (Auto) Baso # (Auto) PT INR pCO2 pO2 HCO3 ABG pH ABG Total CO2 ABG O2 Saturation ABG Base Excess ABG Potassium Glucose Lactate FiO2 Sodium 147 Potassium 4.0 Chloride 106 Carbon Dioxide 33 Anion Gap 12 BUN 14 Creatinine 1.1 Est GFR ( Amer) > 60 Est GFR (Non-Af Amer) > 60 Random Glucose 109 Calcium 8.8 Phosphorus 3.9 Magnesium 2.0 Total Bilirubin 0.8 AST 22 ALT 17 Alkaline Phosphatase 229 H Lactate Dehydrogenase Total Creatine Kinase Troponin I 0.06 NT-Pro-B Natriuret Pep Total Protein 7.0 Albumin 3.0 Globulin 4.0 Albumin/Globulin Ratio 0.8 L Arterial Blood Potassium Assessment & Plan - Assessment and Plan (Free Text) Assessment: 87 y/o male with bilateral lower extremity venous stasis ulcerations and resolving cellulitis Plan: Pt seen and evaluated with attending Dr. Cummings Labs and vitals reviewed Dressings left intact at this time, to be changed tomorrow Venous duplex studies ordered of B/L LE to r/o DVT Will continue to follow patient while in house Thank you for this consult <Noam Cummings - Last Filed: 01/18/18 16:49> Meds - Medications Medications: Current Medications Albuterol/Ipratropium (Duoneb 3 Mg/0.5 Mg (3 Ml) Ud) 3 ml IH Q2H PRN PRN Reason: Shortness of Breath Albuterol/Ipratropium (Duoneb 3 Mg/0.5 Mg (3 Ml) Ud) 3 ml IH [id number] [facility] [place] Last Admin: 01/18/18 13:33 Dose: 3 ml Aspirin (Ecotrin) 81 mg PO DAILY [facility] [place] Last Admin: 01/18/18 10:58 Dose: 81 mg Atorvastatin Calcium (Lipitor) 10 mg PO DIN [facility] Ergocalciferol (Drisdol 50,000 Intl Units Cap) 1 cap PO QWK [facility] Furosemide (Lasix) 40 mg IVP Q12 [facility] [place] Last Admin: 01/18/18 10:59 Dose: 40 mg Heparin Sodium (Porcine) (Heparin) 5,000 units SC Q12 [facility] PRN Reason: Protocol Last Admin: 01/18/18 10:59 Dose: 5,000 units Isosorbide Mononitrate (Imdur) 60 mg PO DAILY [facility] [place] Last Admin: 01/18/18 10:58 Dose: 60 mg Lactic Acid (Lac-Hydrin 12% Cream (140 G)) 0 ea TOP Q12 [facility] [place] Last Admin: 01/18/18 13:13 Dose: Not Given Metoprolol Tartrate (Lopressor) 50 mg PO 0800,1800 [facility] [place] Last Admin: 01/18/18 08:43 Dose: 50 mg Pantoprazole Sodium (Protonix Ec Tab) 40 mg PO 0600 [facility] [place] Last Admin: 01/18/18 05:20 Dose: 40 mg Tamsulosin HCl (Flomax) 0.4 mg PO 1800 [facility] [place] Tiotropium [place] (Spiriva) 18 mcg IH BID [facility] [place] Last Admin: 01/18/18 13:55 Dose: 18 mcg Results - Vital Signs Recent Vital Signs: Last Vital Signs Temp 97.8 F 01/18/18 12:00 Pulse 76 01/18/18 14:00 Resp 18 01/18/18 12:00 BP 138/76 01/18/18 12:00 Pulse Ox 92 L 01/18/18 08:09 - Labs Result Diagrams: 01/18/18 05:30 01/18/18 05:30 Labs: Laboratory Results - last 24 hr 01/17/18 01/17/18 01/17/18 18:00 18:00 18:00 WBC 6.3 D RBC 4.52 Hgb 12.0 L Hct 39.4 L MCV 87.2 D MCH 26.5 MCHC 30.5 L RDW 17.5 H Plt Count 265 MPV 9.4 Gran % 66.9 Lymph % (Auto) 17.9 L [place] % (Auto) 13.1 H Eos % (Auto) 1.8 Baso % (Auto) 0.3 Gran # 4.18 Lymph # (Auto) 1.1 L [place] # (Auto) 0.8 H Eos # (Auto) 0.1 Baso # (Auto) 0.02 PT 15.3 H INR 1.33 H pCO2 pO2 HCO3 ABG pH ABG Total CO2 ABG O2 Saturation ABG Base Excess ABG Potassium Glucose Lactate FiO2 Sodium 146 Potassium 4.6 Chloride 105 Carbon Dioxide 32 Anion Gap 13 BUN 13 Creatinine 1.1 Est GFR ( Amer) > 60 Est GFR (Non-Af Amer) > 60 Random Glucose 108 Calcium 9.1 Phosphorus Magnesium Total Bilirubin 0.9 AST 24 ALT 17 Alkaline Phosphatase 260 H D Lactate Dehydrogenase 429 Total Creatine Kinase 43 Troponin I 0.04 D NT-Pro-B Natriuret Pep 86736 H Total Protein 7.5 Albumin 3.3 Globulin 4.2 Albumin/Globulin Ratio 0.8 L Arterial Blood Potassium 01/17/18 01/18/18 01/18/18 22:02 01:50 05:30 WBC 5.9 RBC 4.14 Hgb 10.8 L Hct 36.1 L MCV 87.2 MCH 26.1 MCHC 29.9 L RDW 17.7 H Plt Count 253 MPV 9.6 Gran % Lymph % (Auto) [place] % (Auto) Eos % (Auto) Baso % (Auto) Gran # Lymph # (Auto) [place] # (Auto) Eos # (Auto) Baso # (Auto) PT INR pCO2 45 pO2 54.0 L HCO3 31.3 H ABG pH 7.45 ABG Total CO2 32.7 H ABG O2 Saturation 91.7 L ABG Base Excess 6.4 H ABG Potassium 3.7 Glucose 97 Lactate 1.4 FiO2 32.0 Sodium 144.0 Potassium Chloride 110.0 H Carbon Dioxide Anion Gap BUN Creatinine Est GFR ( Amer) Est GFR (Non-Af Amer) Random Glucose Calcium Phosphorus Magnesium Total Bilirubin AST ALT Alkaline Phosphatase Lactate Dehydrogenase Total Creatine Kinase Troponin I 0.06 D NT-Pro-B Natriuret Pep Total Protein Albumin Globulin Albumin/Globulin Ratio Arterial Blood Potassium 3.7 01/18/18 01/18/18 05:30 05:30 WBC RBC Hgb Hct MCV MCH MCHC RDW Plt Count MPV Gran % Lymph % (Auto) [place] % (Auto) Eos % (Auto) Baso % (Auto) Gran # Lymph # (Auto) [place] # (Auto) Eos # (Auto) Baso # (Auto) PT INR pCO2 pO2 HCO3 ABG pH ABG Total CO2 ABG O2 Saturation ABG Base Excess ABG Potassium Glucose Lactate FiO2 Sodium 147 Potassium 4.0 Chloride 106 Carbon Dioxide 33 Anion Gap 12 BUN 14 Creatinine 1.1 Est GFR ( Amer) > 60 Est GFR (Non-Af Amer) > 60 Random Glucose 109 Calcium 8.8 Phosphorus 3.9 Magnesium 2.0 Total Bilirubin 0.8 AST 22 ALT 17 Alkaline Phosphatase 229 H Lactate Dehydrogenase Total Creatine Kinase Troponin I 0.06 NT-Pro-B Natriuret Pep Total Protein 7.0 Albumin 3.0 Globulin 4.0 Albumin/Globulin Ratio 0.8 L Arterial Blood Potassium Attending/Attestation - Attestation I have personally seen and examined this patient.: Yes I have fully participated in the care of the patient.: Yes I have reviewed all pertinent clinical information: Yes
[2018-01-18] MEDS: Tiotropium 18 mcg Cap For Inhalation IH SCH ×3 (13:12→18:24)
[2018-01-18] MEDS: Ammonium Lactate 12% Cream (140 g) TOP SCH ×2 (13:13→22:07)
--- NOTE | 2018-01-18 16:13 | CON ---
DATE: 01/18/2018 INDICATIONS: Shortness of breath, penile and scrotal edema. HISTORY OF PRESENT ILLNESS: This is an 87-year-old man known to our practice, admitted yesterday through the emergency room when he complained of increasing shortness of breath. His visiting nurse contacted his physician and he was sent into the emergency room for treatment. He did not have chest pain. There was some orthopnea. There was no syncope, presyncope, lightheadedness, dizziness, or vertigo. There is no fever, chills, sputum production, hemoptysis, abdominal pain, nausea, vomiting, diarrhea, constipation, or melena. PAST MEDICAL HISTORY: Notable for coronary artery disease with rule out myocardial infarction and LV dysfunction. Echocardiograms have shown severe AI with mild aortic stenosis, mitral regurgitation and tricuspid regurgitation, and moderate pulmonary hypertension. He has history of CHF, COPD and bronchitis, hyperlipidemia, stroke, Paget disease, PAD, and bladder cancer. He continues to smoke. He has chronic venous stasis ulcers. He has had vascular surgery for the legs. MEDICATIONS: At the time of admission include aspirin, Flomax, Imdur, Lasix, Lipitor, metoprolol, Spiriva, Advair. ALLERGIES: THERE ARE NO KNOWN MEDICATION ALLERGIES REPORTED. SOCIAL HISTORY: He lives at home. He continues to smoke. There was no history of alcohol or drug abuse. FAMILY HISTORY: Noncontributory. REVIEW OF SYSTEMS: Ten point review of systems is otherwise unremarkable except as noted above. PHYSICAL EXAMINATION: GENERAL: He is a well-developed elderly male lying in bed on telemetry, in no acute distress. VITAL SIGNS: Notable for sinus rhythm at 75 beats per minute, afebrile, blood pressure 133/56, respirations 18-20, O2 sat 92%-94% on nasal cannula. HEENT: Reveals neck vein distention, but no carotid bruit, thyromegaly. Mucous membranes are moist. Conjunctivae are pink. NECK: Supple. LUNGS: Lung daily, rales bilaterally at the bases, scattered rhonchi. HEART: Reveals distant heart sounds. There is a systolic murmur and a soft AI murmur heard along the left sternal border. ABDOMEN: Soft. Bowel sounds present. No mass, organomegaly, tenderness, rebound, or guarding. Penile and scrotal edema noted. EXTREMITIES: Positive for edema. NEUROLOGIC: Awake, alert, and oriented. Diminished hearing. PSYCHIATRIC: Normal as to mood and affect. SKIN: Warm and dry. No rash or cellulitis. LABORATORY AND IMAGING DATA: EKG demonstrates regular sinus rhythm, ST-T wave changes consistent with ischemia. Chest x-ray reveals cardiomegaly with congestive heart failure. White count normal, hemoglobin 10.8, hematocrit 36.1, platelet count normal. PT 15.3, INR 1.33. Blood gases are noted. Electrolytes; BUN, creatinine, blood sugar unremarkable. Magnesium 2. LFTs unremarkable except for a mildly elevated alkaline phosphatase. CK 43. Three troponins negative. BNP 20,000. IMPRESSION: Yao Renteria is an 87-year-old man with known cardiac disease including myocardial infarction, left ventricular dysfunction, aortic insufficiency, aortic stenosis, mitral regurgitation, tricuspid regurgitation, admitted with decompensated congestive heart failure with shortness of breath, and peripheral, scrotal, and penile edema. PLAN: At this time, he is admitted to telemetry. He is getting IV Lasix. He is getting pulmonary medicines. He is getting aspirin, Flomax, subcu heparin, isosorbide, Lipitor, metoprolol, Protonix. We will monitor I's and O's, daily weights, daily labs. I will order an echocardiogram to update his cardiac status. He can be out of bed to chair. I will review his old records. I will make additional recommendations based on his clinical course. Bolivar Pratt MD MAD[facility]
[2018-01-19] MEDS: Albuterol-Ipratrop 3 mg / 0.5 (3 ml) UD IH SCH ×4 (01:21→20:57)
[2018-01-19] MEDS: Albuterol-Ipratrop 3 mg / 0.5 (3 ml) UD IH PRN (04:24)
[2018-01-19] MEDS: Pantoprazole 40 mg EC Tab PO SCH (06:00)
[2018-01-19 07:37] LABS: HEMOGLOBIN 11.5 g/dL (14.0-18.0); MEAN CELL VOLUME 87.2 fl (80.0-105.0); MEAN CORPUSCULAR HEMOGLOBIN 26.3 pg (25.0-35.0); MEAN CORPUSCULAR HGB CONC 30.2 g/dl (31.0-37.0); MEAN PLATELET VOLUME 9.8 fl (7.0-11.0); RBC 4.37 10^6/uL (3.5-6.1); RED CELL DISTRIBUTION WIDTH 17.5 % (11.5-14.5); WHITE BLOOD COUNT 6.4 10^3/ul (4.5-11.0)
[2018-01-19] MEDS ORDERED: Unna Boot TOP ONE (07:45)
[2018-01-19 07:54] LABS: ALB/GLOB RATIO 0.7 (1.1-1.8); ALBUMIN 3.1 g/dL (3.0-4.8); CALCIUM 8.7 mg/dL (8.4-10.5)
--- NOTE | 2018-01-19 08:26 | CP.PCM.PN ---
<Karen Dong - Last Filed: 01/19/18 09:48> Subjective - Date & Time of Evaluation Date of Evaluation: 01/19/18 Time of Evaluation: 08:23 - Subjective Subjective: PGY-2 Progress note for hospitalist service Patient seen and examined at bedside. No acute distress. Nurse reports no acute events overnight. Patient states that his breathing is about the same as before. He denies any fever, chill, chest pain, abd pain. Patient is tolerating diet. Objective - Vital Signs/Intake and Output Vital Signs (last 24 hours): Temp Pulse Resp BP Pulse Ox 98.3 F 82 20 166/76 H 97 01/19/18 06:00 01/19/18 08:16 01/19/18 06:00 01/19/18 08:16 01/19/18 06:00 Intake and Output: 01/19/18 01/19/18 06:59 18:59 Intake Total 840 Output Total 950 Balance -110 - Medications Medications: Current Medications Albuterol/Ipratropium (Duoneb 3 Mg/0.5 Mg (3 Ml) Ud) 3 ml IH Q2H PRN PRN Reason: Shortness of Breath Last Admin: 01/19/18 04:24 Dose: 3 ml Albuterol/Ipratropium (Duoneb 3 Mg/0.5 Mg (3 Ml) Ud) 3 ml IH [id number] [facility] Last Admin: 01/19/18 07:54 Dose: 3 ml Aspirin (Ecotrin) 81 mg PO DAILY [facility] Last Admin: 01/18/18 10:58 Dose: 81 mg Atorvastatin Calcium (Lipitor) 10 mg PO DIN [facility] Last Admin: 01/18/18 17:10 Dose: 10 mg Ergocalciferol (Drisdol 50,000 Intl Units Cap) 1 cap PO QWK [facility] Furosemide (Lasix) 40 mg IVP Q12 [facility] Last Admin: 01/18/18 22:02 Dose: 40 mg Heparin Sodium (Porcine) (Heparin) 5,000 units SC Q12 [facility] PRN Reason: Protocol Last Admin: 01/18/18 22:07 Dose: 5,000 units Isosorbide Mononitrate (Imdur) 60 mg PO DAILY [facility] Last Admin: 01/18/18 10:58 Dose: 60 mg Lactic Acid (Lac-Hydrin 12% Cream (140 G)) 0 ea TOP Q12 [facility] Last Admin: 01/18/18 22:07 Dose: Not Given Metoprolol Tartrate (Lopressor) 50 mg PO 0800,1800 [facility] Last Admin: 01/19/18 08:16 Dose: 50 mg Pantoprazole Sodium (Protonix Ec Tab) 40 mg PO 0600 [facility] Last Admin: 01/19/18 06:00 Dose: 40 mg Tamsulosin HCl (Flomax) 0.4 mg PO 1800 [facility] Last Admin: 01/18/18 17:10 Dose: 0.4 mg Tiotropium [place] (Spiriva) 18 mcg IH BID [facility] Last Admin: 01/18/18 18:24 Dose: 18 mcg - Labs Labs: 01/19/18 07:00 01/19/18 07:00 PT 15.3 SECONDS (9.4-12.5) H 01/17/18 18:00 INR 1.33 (0.93-1.08) H 01/17/18 18:00 - Constitutional Appears: Well, No Acute Distress - Head Exam Head Exam: ATRAUMATIC, NORMAL INSPECTION, NORMOCEPHALIC - Eye Exam Eye Exam: EOMI, Normal appearance - ENT Exam ENT Exam: Mucous Membranes Moist - Respiratory Exam Respiratory Exam: Rhonchi, Wheezes, NORMAL BREATHING PATTERN. absent: Respiratory Distress - Cardiovascular Exam Cardiovascular Exam: REGULAR RHYTHM, +S1, +S2. absent: Tachycardia, Murmur - GI/Abdominal Exam GI & Abdominal Exam: Soft, Normal Bowel Sounds. absent: Distended, Firm, Tenderness - Neurological Exam Neurological Exam: Alert, Awake, Oriented x3 - Skin Skin Exam: Dry, Intact, Normal Color, Warm Assessment and Plan - Assessment and Plan (Free Text) Assessment: 87 yo M with PMH of NSTEMI, CAD, CHF (EF 17%), COPD, HTN, Paget's disease of bone, PAD, bladder tumor with urinary retention, anemia, DM, chronic venous stasis ulcers admitted for CHF exacerbation, developed JASWINDER. Plan: Acute systolic CHF exacerbation - BNP 06287 - Troponin negative x 3 - CXR showed vascular congestion - EKG showed sinus rhythm with PAC, inferior infarct age undetermined, inverted T waves on lateral leads - Echo (06/14/17) showed EF 17.3%, moderate concentric left ventricular hypertrophy, global hypokinesis, severely calcified aortic valve, moderate to severe AR, moderate to severe MR, mild to moderate pulmonary HTN - repeat Echo pending - Strict I's and O's - Daily weights - Head of bed to 30 degrees - decreased Lasix to 40 mg IVP daily due to increased creatinine - continue Lopressor 50 mg PO BID - continue Imdur 60 mg PO daily - patinet will most likley need to be on acei/ arb however will hold due to JASWINDER - Cardiology consulted JASWINDER - creatinine increased to 1.6, from 1.1 - ordered urine studies including urine Na, urea, creatinine, for Fe urea - decreased lasix to 40 IVP daily - continue to monitor CAD - continue lipitor 10 daily - continue asa HTN - continue Lopressor COPD - ABG shows pH 7.45 with some hypoxia, but no CO2 retention - continue Duoneb tomer and prn - O2 via NC 2L - Maintain O2 sat 88-95% H/o chronic venous stasis ulcers - US of LE pending - Podiatry consulted H/o BPH - Flomax GI/DVT PPx - Protonix - Heparin SC <Stephanie Julien - Last Filed: 01/19/18 18:36> Objective - Vital Signs/Intake and Output Vital Signs (last 24 hours): Temp Pulse Resp BP Pulse Ox 98.5 F 76 18 135/73 83 L 01/19/18 18:00 01/19/18 18:00 01/19/18 18:00 01/19/18 18:00 01/19/18 18:00 Intake and Output: 01/19/18 01/19/18 06:59 18:59 Intake Total 840 Output Total 950 Balance -110 - Medications Medications: Current Medications Albuterol/Ipratropium (Duoneb 3 Mg/0.5 Mg (3 Ml) Ud) 3 ml IH Q2H PRN PRN Reason: Shortness of Breath Last Admin: 01/19/18 04:24 Dose: 3 ml Albuterol/Ipratropium (Duoneb 3 Mg/0.5 Mg (3 Ml) Ud) 3 ml IH [id number] [facility] Last Admin: 01/19/18 13:51 Dose: 3 ml Aspirin (Ecotrin) 81 mg PO DAILY [facility] Last Admin: 01/19/18 09:21 Dose: 81 mg Atorvastatin Calcium (Lipitor) 10 mg PO DIN [facility] Last Admin: 01/19/18 17:22 Dose: 10 mg Ergocalciferol (Drisdol 50,000 Intl Units Cap) 1 cap PO QWK [facility] Furosemide (Lasix) 40 mg IVP DAILY [facility] Last Admin: 01/19/18 09:21 Dose: 40 mg Heparin Sodium (Porcine) (Heparin) 5,000 units SC Q12 [facility] PRN Reason: Protocol Last Admin: 01/19/18 09:21 Dose: 5,000 units Isosorbide Mononitrate (Imdur) 60 mg PO DAILY [facility] Last Admin: 01/19/18 09:21 Dose: 60 mg Lactic Acid (Lac-Hydrin 12% Cream (140 G)) 0 ea TOP Q12 [facility] Last Admin: 01/19/18 10:06 Dose: Not Given Metoprolol Tartrate (Lopressor) 50 mg PO 0800,1800 [facility] Last Admin: 01/19/18 17:22 Dose: 50 mg Pantoprazole Sodium (Protonix Ec Tab) 40 mg PO 0600 [facility] Last Admin: 01/19/18 06:00 Dose: 40 mg Tamsulosin HCl (Flomax) 0.4 mg PO 1800 [facility] Last Admin: 01/19/18 17:22 Dose: 0.4 mg Tiotropium [place] (Spiriva) 18 mcg IH BID [facility] Last Admin: 01/19/18 17:22 Dose: 18 mcg - Labs Labs: 01/19/18 07:00 01/19/18 07:00 PT 15.3 SECONDS (9.4-12.5) H 01/17/18 18:00 INR 1.33 (0.93-1.08) H 01/17/18 18:00 Attending/Attestation - Attestation I have personally seen and examined this patient.: Yes I have fully participated in the care of the patient.: Yes I have reviewed all pertinent clinical information, including history, physical exam and plan: Yes Notes (Text): I have seen and examined the patient at bedside. Agree with the above note with the following additions/ exceptions: Briefly this is 87 year old male with history of tobacco use, CAD, CHF (EF 17%), COPD, HTN, Paget's disease of bone, PAD, bladder tumor, anemia, chronic venous stasis ulcers, AI, , MR, TR who was admitted for evaluation of dysonea, bilateral LE edema, scrotal / penile edema and found to have acute decompensated CHF exacerbation. Patient was started on agrresive diuresis however he developed JASWINDER today. Creatinine jumped up from 1 to 1.6. Patient feels well and reports remarkable improvement in edema. Will decrease lasix to 40 daily. I/Os needs to be monitored closely. Continue asa, imdur, lopressor and lipitor. He is not on ACEI/ARB and will not start at this time due to JASWINDER. Continue dressing change by podiatry. Upon discharge patient will follow up with Dr Ferrari. Dr Stephanie Julien.
[2018-01-19] MEDS: Tiotropium 18 mcg Cap For Inhalation IH SCH ×2 (09:21→17:22)
--- NOTE | 2018-01-19 09:32 | CP.PCM.PN ---
Subjective - Date & Time of Evaluation Date of Evaluation: 01/19/18 Time of Evaluation: 07:00 - Subjective Subjective: Stable on 3R. No CP or SOB. V/S noted. RSR PE: Lungs: rhonchi Cor.: S1S2, sys. murmur Abd.: soft Ext.: chronic cellulities/edema Neuro.: alert I/O= 1200/1150 Labs noted. Cr.= 1.6 LE bro. Dopplers pending. Objective - Vital Signs/Intake and Output Vital Signs (last 24 hours): Temp Pulse Resp BP Pulse Ox 98.3 F 82 20 166/76 H 97 01/19/18 06:00 01/19/18 08:16 01/19/18 06:00 01/19/18 09:21 01/19/18 06:00 Intake and Output: 01/19/18 01/19/18 06:59 18:59 Intake Total 840 Output Total 950 Balance -110 - Medications Medications: Current Medications Albuterol/Ipratropium (Duoneb 3 Mg/0.5 Mg (3 Ml) Ud) 3 ml IH Q2H PRN PRN Reason: Shortness of Breath Last Admin: 01/19/18 04:24 Dose: 3 ml Albuterol/Ipratropium (Duoneb 3 Mg/0.5 Mg (3 Ml) Ud) 3 ml IH [id number] [facility] Last Admin: 01/19/18 07:54 Dose: 3 ml Aspirin (Ecotrin) 81 mg PO DAILY [facility] Last Admin: 01/19/18 09:21 Dose: 81 mg Atorvastatin Calcium (Lipitor) 10 mg PO DIN [facility] Last Admin: 01/18/18 17:10 Dose: 10 mg Ergocalciferol (Drisdol 50,000 Intl Units Cap) 1 cap PO QWK [facility] Furosemide (Lasix) 40 mg IVP DAILY [facility] Last Admin: 01/19/18 09:21 Dose: 40 mg Heparin Sodium (Porcine) (Heparin) 5,000 units SC Q12 [facility] PRN Reason: Protocol Last Admin: 01/19/18 09:21 Dose: 5,000 units Isosorbide Mononitrate (Imdur) 60 mg PO DAILY [facility] Last Admin: 01/19/18 09:21 Dose: 60 mg Lactic Acid (Lac-Hydrin 12% Cream (140 G)) 0 ea TOP Q12 [facility] Last Admin: 01/18/18 22:07 Dose: Not Given Metoprolol Tartrate (Lopressor) 50 mg PO 0800,1800 [facility] Last Admin: 01/19/18 08:16 Dose: 50 mg Pantoprazole Sodium (Protonix Ec Tab) 40 mg PO 0600 [facility] Last Admin: 01/19/18 06:00 Dose: 40 mg Tamsulosin HCl (Flomax) 0.4 mg PO 1800 [facility] Last Admin: 01/18/18 17:10 Dose: 0.4 mg Tiotropium [place] (Spiriva) 18 mcg IH BID [facility] Last Admin: 01/19/18 09:21 Dose: 18 mcg - Labs Labs: 01/19/18 07:00 01/19/18 07:00 PT 15.3 SECONDS (9.4-12.5) H 01/17/18 18:00 INR 1.33 (0.93-1.08) H 01/17/18 18:00 Assessment and Plan - Assessment and Plan (Free Text) Assessment: Dyspnea, Scrotal/Penile edema/CHF CAD/KS/LVD Severe AI, Mild , MR, TR, PH on echo COPD HLD CVA Smoker Paget's Disease PAD/Vascular Bypass Chronic LE celulitis Bladder cancer Plan: Continue IV Lasix Monitor labs, renal fx, I/Os, etc As per Podiatry, Medical Team OOB as jeffry.
[2018-01-19] MEDS: Ammonium Lactate 12% Cream (140 g) TOP SCH ×2 (10:06→21:17)
--- NOTE | 2018-01-19 10:12 | CP.PCM.PN ---
<Sachin Browning - Last Filed: 01/19/18 11:06> Subjective - Date & Time of Evaluation Date of Evaluation: 01/19/18 Time of Evaluation: 08:00 - Subjective Subjective: Podiatry Progress Note- Dr. Cummings 87 y/o male known to Dr. Cummings's service seen at bedside for bilateral venous stasis leg ulcerations with resolving cellulitis to both lower extremities. Patient is seen resting comfortably in bed, in NAD, and AA0x3. Pt states he came into the hospital because he was feeling short of breath yesterday. Denies nausea, fever, chest pain, chills, vomiting. Reports that shortness of breathe is the same. Objective - Vital Signs/Intake and Output Vital Signs (last 24 hours): Temp Pulse Resp BP Pulse Ox 98.3 F 82 20 166/76 H 97 01/19/18 06:00 01/19/18 08:16 01/19/18 06:00 01/19/18 09:21 01/19/18 06:00 Intake and Output: 01/19/18 01/19/18 06:59 18:59 Intake Total 840 Output Total 950 Balance -110 - Medications Medications: Current Medications Albuterol/Ipratropium (Duoneb 3 Mg/0.5 Mg (3 Ml) Ud) 3 ml IH Q2H PRN PRN Reason: Shortness of Breath Last Admin: 01/19/18 04:24 Dose: 3 ml Albuterol/Ipratropium (Duoneb 3 Mg/0.5 Mg (3 Ml) Ud) 3 ml IH [id number] [facility] Last Admin: 01/19/18 07:54 Dose: 3 ml Aspirin (Ecotrin) 81 mg PO DAILY [facility] Last Admin: 01/19/18 09:21 Dose: 81 mg Atorvastatin Calcium (Lipitor) 10 mg PO DIN [facility] Last Admin: 01/18/18 17:10 Dose: 10 mg Ergocalciferol (Drisdol 50,000 Intl Units Cap) 1 cap PO QWK [facility] Furosemide (Lasix) 40 mg IVP DAILY [facility] Last Admin: 01/19/18 09:21 Dose: 40 mg Heparin Sodium (Porcine) (Heparin) 5,000 units SC Q12 [facility] PRN Reason: Protocol Last Admin: 01/19/18 09:21 Dose: 5,000 units Isosorbide Mononitrate (Imdur) 60 mg PO DAILY [facility] Last Admin: 01/19/18 09:21 Dose: 60 mg Lactic Acid (Lac-Hydrin 12% Cream (140 G)) 0 ea TOP Q12 [facility] Last Admin: 01/19/18 10:06 Dose: Not Given Metoprolol Tartrate (Lopressor) 50 mg PO 0800,1800 [facility] Last Admin: 01/19/18 08:16 Dose: 50 mg Pantoprazole Sodium (Protonix Ec Tab) 40 mg PO 0600 [facility] Last Admin: 01/19/18 06:00 Dose: 40 mg Tamsulosin HCl (Flomax) 0.4 mg PO 1800 [facility] Last Admin: 01/18/18 17:10 Dose: 0.4 mg Tiotropium [place] (Spiriva) 18 mcg IH BID [facility] Last Admin: 01/19/18 09:21 Dose: 18 mcg - Labs Labs: 01/19/18 07:00 01/19/18 07:00 PT 15.3 SECONDS (9.4-12.5) H 01/17/18 18:00 INR 1.33 (0.93-1.08) H 01/17/18 18:00 - Constitutional Appears: Well, Non-toxic, No Acute Distress - Extremities Exam Extremities Exam: absent: Calf Tenderness Additional comments: Bilateral lower extremity examination: Vasc: Palpable DP and PT pulses are noted 1/4 bilaterally. CFT < 3 seconds noted to all digits, temperature gradient WNL, no digital hair appreciated Derm: Right: Open ulcerations to anterior and lateral aspect of leg measuring 8cm x 4cm x 0.2cm with granular base. Minimal serosanguinous drainage is noted. Decreasing erythema, no purulence, no malodor, no undermining, no tunneling, no probe to bone, overall LE has scaly lesions Left: Open ulcerations to anterior aspect of leg measuring 9cm x 4cm x 0.2cm with a mixed fibrogranular base. Mild serosanguinous drainage is noted. No malodor, no purulence. Mild erythema noted to wound periphery. Ortho: no pain with palpation to the calf, mild pain to the bilaterally legs - Neurological Exam Neurological Exam: Alert, Awake - Psychiatric Exam Psychiatric exam: Normal Affect, Normal Mood Assessment and Plan - Assessment and Plan (Free Text) Assessment: 87 yo male patient with venous stasis ulcerations to anterior aspect of bilateral legs (R>L) Plan: Pt seen and evaluated with attending Dr. Cummings Labs and vitals reviewed Ulcerations cleansed with saline solution, dressed ulcerations with maxosorb, and application of UNNA boot to the bilateral LE Dressing to remain intact. Will not be changed tomorrow. Venous duplex studies pending of B/L LE to r/o DVT Will continue to follow patient while in house Thank you for allowing us to take part in patient's care <Noam Cummings - Last Filed: 01/22/18 11:56> Objective - Vital Signs/Intake and Output Vital Signs (last 24 hours): Temp Pulse Resp BP Pulse Ox 98.0 F 86 20 118/85 92 L 01/21/18 12:00 01/21/18 17:49 01/21/18 12:00 01/21/18 17:49 01/21/18 05:57 - Labs Labs: 01/21/18 06:30 01/21/18 06:30 PT 15.3 SECONDS (9.4-12.5) H 01/17/18 18:00 INR 1.33 (0.93-1.08) H 01/17/18 18:00 Attending/Attestation - Attestation I have personally seen and examined this patient.: Yes I have fully participated in the care of the patient.: Yes I have reviewed all pertinent clinical information, including history, physical exam and plan: Yes
--- NOTE | 2018-01-19 23:27 | US ---
HISTORY: Leg pain and swelling. Evaluate for DVT PHYSICIAN(S): Bg Saunders MD. TECHNIQUE: Duplex sonography and color-flow Doppler with graded compression were used to evaluate the deep venous systems of both lower extremities. The tibial veins are not evaluated due to dressings. FINDINGS: The visualized deep venous systems of both lower extremities are sonographically normal and compressible. Normal wave forms and augmentation are seen. There is no sonographic evidence for deep venous thrombosis in the visualized segments of both lower extremities. IMPRESSION: No sonographic evidence for deep venous thrombosis in the visualized segments of both lower extremities. Limited study
[2018-01-20] MEDS: Albuterol-Ipratrop 3 mg / 0.5 (3 ml) UD IH SCH ×4 (03:56→22:00)
[2018-01-20] MEDS: Pantoprazole 40 mg EC Tab PO SCH (05:39)
[2018-01-20 07:05] LABS: MEAN CELL VOLUME 86.8 fl (80.0-105.0); MEAN CORPUSCULAR HEMOGLOBIN 26.9 pg (25.0-35.0); MEAN PLATELET VOLUME 9.8 fl (7.0-11.0); RBC 4.09 10^6/uL (3.5-6.1); RED CELL DISTRIBUTION WIDTH 17.4 % (11.5-14.5); WHITE BLOOD COUNT 6.7 10^3/ul (4.5-11.0)
[2018-01-20 07:30] LABS: ALB/GLOB RATIO 0.8 (1.1-1.8); ALBUMIN 3.1 g/dL (3.0-4.8); CALCIUM 8.6 mg/dL (8.4-10.5)
--- NOTE | 2018-01-20 09:15 | CP.PCM.PN ---
Subjective - Date & Time of Evaluation Date of Evaluation: 01/20/18 Time of Evaluation: 07:00 - Subjective Subjective: Stable on 3R. No CP or SOB. V/S noted. RSR PE: Lungs: rhonchi Cor.: S1S2, sys. murmur Abd.: soft Ext.: legs RED wrapped Neuro.: alert I/O= 960/1300 Labs noted. Cr.= 1.4 LE rbo. Dopplers: No DVT Echo done. Will read. See report. Objective - Vital Signs/Intake and Output Vital Signs (last 24 hours): Temp Pulse Resp BP Pulse Ox 97.9 F 80 20 160/68 H 93 L 01/20/18 06:00 01/20/18 08:41 01/20/18 06:00 01/20/18 08:41 01/20/18 06:00 Intake and Output: 01/20/18 01/20/18 06:59 18:59 Intake Total 960 Output Total 1300 Balance -340 - Medications Medications: Current Medications Albuterol/Ipratropium (Duoneb 3 Mg/0.5 Mg (3 Ml) Ud) 3 ml IH Q2H PRN PRN Reason: Shortness of Breath Last Admin: 01/19/18 04:24 Dose: 3 ml Albuterol/Ipratropium (Duoneb 3 Mg/0.5 Mg (3 Ml) Ud) 3 ml IH [id number] [facility] Last Admin: 01/20/18 07:46 Dose: 3 ml Aspirin (Ecotrin) 81 mg PO DAILY [facility] Last Admin: 01/19/18 09:21 Dose: 81 mg Atorvastatin Calcium (Lipitor) 10 mg PO DIN [facility] Last Admin: 01/19/18 17:22 Dose: 10 mg Ergocalciferol (Drisdol 50,000 Intl Units Cap) 1 cap PO QWK [facility] Furosemide (Lasix) 40 mg IVP DAILY [facility] Last Admin: 01/19/18 09:21 Dose: 40 mg Heparin Sodium (Porcine) (Heparin) 5,000 units SC Q12 [facility] PRN Reason: Protocol Last Admin: 01/19/18 21:16 Dose: 5,000 units Isosorbide Mononitrate (Imdur) 60 mg PO DAILY [facility] Last Admin: 01/19/18 09:21 Dose: 60 mg Lactic Acid (Lac-Hydrin 12% Cream (140 G)) 0 ea TOP Q12 [facility] Last Admin: 01/19/18 21:17 Dose: Not Given Metoprolol Tartrate (Lopressor) 50 mg PO 0800,1800 [facility] Last Admin: 01/20/18 08:41 Dose: 50 mg Pantoprazole Sodium (Protonix Ec Tab) 40 mg PO 0600 [facility] Last Admin: 01/20/18 05:39 Dose: 40 mg Tamsulosin HCl (Flomax) 0.4 mg PO 1800 [facility] Last Admin: 01/19/18 17:22 Dose: 0.4 mg Tiotropium [place] (Spiriva) 18 mcg IH BID [facility] Last Admin: 01/19/18 17:22 Dose: 18 mcg - Labs Labs: 01/20/18 06:25 01/20/18 06:25 PT 15.3 SECONDS (9.4-12.5) H 01/17/18 18:00 INR 1.33 (0.93-1.08) H 01/17/18 18:00 Assessment and Plan - Assessment and Plan (Free Text) Assessment: Dyspnea, Scrotal/Penile edema/CHF CAD/VT/LVD Severe AI, Mild , MR, TR, PH on echo COPD HLD CVA Smoker Paget's Disease PAD/Vascular Bypass Chronic LE celulitis Bladder cancer Plan: Continue IV Lasix Monitor labs, renal fx, I/Os, etc As per Podiatry, Medical Team OOB as jeffry.
--- NOTE | 2018-01-20 09:25 | CP.PCM.PN ---
<Karen Dong - Last Filed: 01/20/18 13:12> Subjective - Date & Time of Evaluation Date of Evaluation: 01/20/18 Time of Evaluation: 09:22 - Subjective Subjective: PGY-2 Progress note for hospitalist service Patient seen and examined at bedside. No acute distress. Nurse report no acute events overnight. Patient states that he feels the same as yesterday, and feels over all weak. He denies SOB, chest pain, abd pain, n/v. He is tolerating his diet. Objective - Vital Signs/Intake and Output Vital Signs (last 24 hours): Temp Pulse Resp BP Pulse Ox 97.9 F 80 20 160/68 H 93 L 01/20/18 06:00 01/20/18 08:41 01/20/18 06:00 01/20/18 08:41 01/20/18 06:00 Intake and Output: 01/20/18 01/20/18 06:59 18:59 Intake Total 960 Output Total 1300 Balance -340 - Medications Medications: Current Medications Albuterol/Ipratropium (Duoneb 3 Mg/0.5 Mg (3 Ml) Ud) 3 ml IH Q2H PRN PRN Reason: Shortness of Breath Last Admin: 01/19/18 04:24 Dose: 3 ml Albuterol/Ipratropium (Duoneb 3 Mg/0.5 Mg (3 Ml) Ud) 3 ml IH [id number] [facility] Last Admin: 01/20/18 07:46 Dose: 3 ml Aspirin (Ecotrin) 81 mg PO DAILY [facility] Last Admin: 01/19/18 09:21 Dose: 81 mg Atorvastatin Calcium (Lipitor) 10 mg PO DIN [facility] Last Admin: 01/19/18 17:22 Dose: 10 mg Ergocalciferol (Drisdol 50,000 Intl Units Cap) 1 cap PO QWK [facility] Furosemide (Lasix) 40 mg IVP DAILY [facility] Last Admin: 01/19/18 09:21 Dose: 40 mg Heparin Sodium (Porcine) (Heparin) 5,000 units SC Q12 [facility] PRN Reason: Protocol Last Admin: 01/19/18 21:16 Dose: 5,000 units Isosorbide Mononitrate (Imdur) 60 mg PO DAILY [facility] Last Admin: 01/19/18 09:21 Dose: 60 mg Lactic Acid (Lac-Hydrin 12% Cream (140 G)) 0 ea TOP Q12 [facility] Last Admin: 01/19/18 21:17 Dose: Not Given Metoprolol Tartrate (Lopressor) 50 mg PO 0800,1800 [facility] Last Admin: 01/20/18 08:41 Dose: 50 mg Pantoprazole Sodium (Protonix Ec Tab) 40 mg PO 0600 [facility] Last Admin: 01/20/18 05:39 Dose: 40 mg Tamsulosin HCl (Flomax) 0.4 mg PO 1800 [facility] Last Admin: 01/19/18 17:22 Dose: 0.4 mg Tiotropium [place] (Spiriva) 18 mcg IH BID [facility] Last Admin: 01/19/18 17:22 Dose: 18 mcg - Labs Labs: 01/20/18 06:25 01/20/18 06:25 PT 15.3 SECONDS (9.4-12.5) H 01/17/18 18:00 INR 1.33 (0.93-1.08) H 01/17/18 18:00 - Constitutional Appears: No Acute Distress - Head Exam Head Exam: ATRAUMATIC, NORMAL INSPECTION, NORMOCEPHALIC - Eye Exam Eye Exam: EOMI, Normal appearance - ENT Exam ENT Exam: Mucous Membranes Dry - Respiratory Exam Respiratory Exam: Decreased Breath Sounds, Clear to Ausculation Bilateral, NORMAL BREATHING PATTERN. absent: Rhonchi, Wheezes - Cardiovascular Exam Cardiovascular Exam: REGULAR RHYTHM, +S1, +S2. absent: Tachycardia, Murmur - GI/Abdominal Exam GI & Abdominal Exam: Soft, Tenderness, Normal Bowel Sounds. absent: Distended, Firm - Extremities Exam Additional comments: dressing on bilateral lower extremities, intact, clean and dry - Neurological Exam Neurological Exam: Alert, Awake, Oriented x3 - Skin Skin Exam: Dry, Normal Color, Warm Assessment and Plan - Assessment and Plan (Free Text) Assessment: 87 yo M with PMH of NSTEMI, CAD, CHF (EF 17%), COPD, HTN, Paget's disease of bone, PAD, bladder tumor with urinary retention, anemia, DM, chronic venous stasis ulcers admitted for CHF exacerbation, developed JASWINDER. Plan: Acute systolic CHF exacerbation - BNP 89090 - Troponin negative x 3 - CXR showed vascular congestion - EKG showed sinus rhythm with PAC, inferior infarct age undetermined, inverted T waves on lateral leads - Echo (06/14/17) showed EF 17.3%, moderate concentric left ventricular hypertrophy, global hypokinesis, severely calcified aortic valve, moderate to severe AR, moderate to severe MR, mild to moderate pulmonary HTN - repeat Echo showed EF of 42%, aortic valve moderate to severe calcified, moderate to severe tricuspid regurgitation - Strict I's and O's - Daily weights - Head of bed to 30 degrees - continue Lasix to 40 mg IVP daily - continue Lopressor 50 mg PO BID - continue Imdur 60 mg PO daily - patinet will most likley need to be on acei/ arb however will hold due to JASWINDER - repeat CXR showed improving congestion - Cardiology consulted JASWINDER - creatinine improved to 1.4 - Fe urea is 47.9, intrinsic - continue lasix 40 IVP daily - continue to monitor CAD - continue lipitor 10 daily - continue asa HTN - continue Lopressor COPD - ABG on 01/17 shows pH 7.45 with some hypoxia, but no CO2 retention - continue Duoneb tomer and prn - O2 via NC 2L - Maintain O2 sat 88-95% - consider pulmonary consult for tomorrow H/o chronic venous stasis ulcers - US of LE pending - Podiatry consulted H/o BPH - Flomax GI/DVT PPx - Protonix - Heparin SC <Stephanie Julien - Last Filed: 01/20/18 15:33> Objective - Vital Signs/Intake and Output Vital Signs (last 24 hours): Temp Pulse Resp BP Pulse Ox 98.0 F 73 18 133/67 93 L 01/20/18 12:00 01/20/18 14:00 01/20/18 12:00 01/20/18 12:00 01/20/18 06:00 Intake and Output: 01/20/18 01/20/18 06:59 18:59 Intake Total 960 Output Total 1300 Balance -340 - Medications Medications: Current Medications Albuterol/Ipratropium (Duoneb 3 Mg/0.5 Mg (3 Ml) Ud) 3 ml IH Q2H PRN PRN Reason: Shortness of Breath Last Admin: 01/19/18 04:24 Dose: 3 ml Albuterol/Ipratropium (Duoneb 3 Mg/0.5 Mg (3 Ml) Ud) 3 ml IH [id number] [facility] Last Admin: 01/20/18 14:12 Dose: 3 ml Aspirin (Ecotrin) 81 mg PO DAILY [facility] Last Admin: 01/20/18 09:59 Dose: 81 mg Atorvastatin Calcium (Lipitor) 10 mg PO DIN [facility] Last Admin: 01/19/18 17:22 Dose: 10 mg Ergocalciferol (Drisdol 50,000 Intl Units Cap) 1 cap PO QWK [facility] Furosemide (Lasix) 40 mg IVP DAILY [facility] Last Admin: 01/20/18 10:00 Dose: 40 mg Heparin Sodium (Porcine) (Heparin) 5,000 units SC Q12 [facility] PRN Reason: Protocol Last Admin: 01/20/18 09:59 Dose: 5,000 units Ceftriaxone Sodium (Rocephin 1 Gram Ivpb) 1 gm in 100 mls @ 100 mls/hr IVPB DAILY [facility] PRN Reason: Protocol Vancomycin HCl (Vancomycin 1gm) 1 gm in 250 mls @ 167 mls/hr IVPB ONCE ONE PRN Reason: Protocol Stop: 01/20/18 16:50 Isosorbide Mononitrate (Imdur) 60 mg PO DAILY [facility] Last Admin: 01/20/18 09:59 Dose: 60 mg Lactic Acid (Lac-Hydrin 12% Cream (140 G)) 0 ea TOP Q12 [facility] Last Admin: 01/20/18 10:10 Dose: Not Given Metoprolol Tartrate (Lopressor) 50 mg PO 0800,1800 [facility] Last Admin: 01/20/18 08:41 Dose: 50 mg Pantoprazole Sodium (Protonix Ec Tab) 40 mg PO 0600 [facility] Last Admin: 01/20/18 05:39 Dose: 40 mg Tamsulosin HCl (Flomax) 0.4 mg PO 1800 [facility] Last Admin: 01/19/18 17:22 Dose: 0.4 mg Tiotropium [place] (Spiriva) 18 mcg IH BID [facility] Last Admin: 01/20/18 09:59 Dose: 18 mcg - Labs Labs: 01/20/18 06:25 01/20/18 06:25 PT 15.3 SECONDS (9.4-12.5) H 01/17/18 18:00 INR 1.33 (0.93-1.08) H 01/17/18 18:00 Attending/Attestation - Attestation I have personally seen and examined this patient.: Yes I have fully participated in the care of the patient.: Yes I have reviewed all pertinent clinical information, including history, physical exam and plan: Yes Notes (Text): I have seen and examined the patient at bedside. Agree with the above note with the following additions/ exceptions: Briefly this is 87 year old male with history of tobacco use, CAD, CHF (EF 17%), COPD, HTN, Paget's disease of bone, PAD, bladder tumor, anemia, chronic venous stasis ulcers, AI, , MR, TR who was admitted for evaluation of dyspnea, bilateral LE edema, scrotal / penile edema and found to have acute decompensated CHF exacerbation. Patient was started on aggressive diuresis however he developed JASWINDER yesterday. Creatinine jumped up from 1 to 1.6. Lasix dosage was decreased to 40 daily and today creatinine is 1.4. Patient feels well and reports remarkable improvement in edema. I/Os needs to be monitored closely. Continue asa, imdur, lopressor and lipitor. He is not on ACEI/ARB and will not start at this time due to JASWINDER. Continue dressing change by podiatry. Wound culture from the legs grew Staph aureus and GNR. Will start rocephin and give 1 dose of vanco. Will consult ID. Upon discharge patient will follow up with Dr Ferrari. Dr Stephanie Julien.
[2018-01-20 09:30] LABS: ARTERIAL BLOOD GAS HCO3 35.5 mmol/L (21-28); ARTERIAL BLOOD GAS HEMOGLOBIN 11.3 g/dL (11.7-17.4); ARTERIAL BLOOD GAS O2 CAPACITY 15.6 mL/dl (16-24); ARTERIAL BLOOD GAS O2 CONTENT 5.9 ML/dl (15-23); ARTERIAL BLOOD GAS O2 SAT 37.9 % (95-98); ARTERIAL BLOOD GAS PCO2 60 mm/Hg (35-45); ARTERIAL BLOOD GAS PH 7.38 (7.35-7.45); ARTERIAL BLOOD GAS TCO2 37.3 mmol.L (22-28)
--- NOTE | 2018-01-20 09:34 | RAD ---
HISTORY: low o2 saturation COMPARISON: Multiple serial examinations preceding the most recent study: 01/17/2018 FINDINGS: LUNGS: Improving pulmonary vascular congestion. PLEURA: No significant pleural effusion identified, no pneumothorax apparent. CARDIOVASCULAR: Persisting cardiomegaly. OSSEOUS STRUCTURES: No significant abnormalities. VISUALIZED UPPER ABDOMEN: Normal. OTHER FINDINGS: None. IMPRESSION: Improving congestive heart failure/ pulmonary edema.
--- NOTE | 2018-01-20 09:58 | CARD ---
APPROVED REPORT EXAM: Two-dimensional and M-mode echocardiogram with Doppler and color Doppler. Other Information Quality : FairRhythm : INDICATION Dyspnea , edema 2D DIMENSIONS IVSd1.2 (0.7-1.1cm)LVDd5.3 (3.9-5.9cm) LVOT Diameter2.3 (1.8-2.4cm)PWd1.2 (0.7-1.1cm) LVDs4.2 (2.5-4.0cm)FS (%) 20.8 % LVEF (%)42.0 (>50%) M-Mode DIMENSIONS Left Atrium (MM)4.70 (2.5-4.0cm)Aortic Root3.90 (2.2-3.7cm) Aortic Cusp Exc.1.00 (1.5-2.0cm) Aortic Valve AoV Peak Xmjtsjny720.0cm/sAoV VTI64.2cmAO Peak GR.32mmHg LVOT Peak Pnuctmwj18.7cm/sLVOT VTI18.50cmAO Mean GR.17mmHg CAPO (VMAX)1.39oz7NMG (VTI)1.45ax4BF P 1/2 Ipui754ph Mitral Valve MV E Wmrudzyf65.7cm/sMV A Readexup36.6cm/sE/A ratio0.9 TDI Lateral E' Peak V7.02cm/sMedial E' Peak V3.98cm/sE/Lateral E'9.9 E/Medial E'17.5 Tricuspid Valve TR Peak Wpkguyyz380aj/sRAP FRSZBVOX48slChMZ Peak Gr.40mmHg [id number] LEFT VENTRICLE The left ventricle is normal size. There is normal left ventricular wall thickness. Left ventricle systolic function is mildly impaired. The septum is severely hypokinetic RIGHT VENTRICLE The right ventricle is normal size. ATRIA The left atrium is mildly dilated. The right atrium is mildly dilated. The interatrial septum is intact with no evidence for an atrial septal defect. AORTIC VALVE The aortic valve is moderately to severely calcified. There is moderate aortic regurgitation. There is mild to moderate valvular aortic stenosis. MITRAL VALVE The mitral valve is moderately thickened but opens well. Mitral annular calcification is mild to moderate. Mitral regurgitation is mild. TRICUSPID VALVE The tricuspid valve is normal in structure. There is moderate to severe tricuspid regurgitation. There is moderate-severe pulmonary hypertension. PULMONIC VALVE The pulmonic valve is not well visualized. GREAT VESSELS The aortic root is normal in size. PERICARDIAL EFFUSION There is no pericardial effusion. <Conclusion> The left ventricle is normal size. There is normal left ventricular wall thickness. Left ventricle systolic function is mildly impaired. The septum is severely hypokinetic The aortic valve is moderately to severely calcified. There is mild to moderate valvular aortic stenosis. There is moderate aortic regurgitation. Mitral regurgitation is mild. There is moderate to severe tricuspid regurgitation. There is moderate-severe pulmonary hypertension.
[2018-01-20] MEDS: Tiotropium 18 mcg Cap For Inhalation IH SCH ×2 (09:59→17:32)
[2018-01-20] MEDS: Ammonium Lactate 12% Cream (140 g) TOP SCH ×2 (10:10→21:21)
--- NOTE | 2018-01-20 13:21 | CP.PCM.PN ---
<Sachin Browning - Last Filed: 01/20/18 13:18> Subjective - Date & Time of Evaluation Date of Evaluation: 01/20/18 Time of Evaluation: 10:00 - Subjective Subjective: Podiatry Progress Note- Dr. Cummings/ 87 y/o male known to Dr. Cummings's service seen at bedside for bilateral venous stasis leg ulcerations with resolving cellulitis to both lower extremities. Patient is seen resting comfortably in bed, in NAD, and AA0x3. Denies acute overnight events. Pt reports that his shortness of breath has improved. Denies nausea, fever, chest pain, chills, vomiting. Objective - Vital Signs/Intake and Output Vital Signs (last 24 hours): Temp Pulse Resp BP Pulse Ox 97.9 F 80 20 160/68 H 93 L 01/20/18 06:00 01/20/18 08:41 01/20/18 06:00 01/20/18 10:00 01/20/18 06:00 Intake and Output: 01/20/18 01/20/18 06:59 18:59 Intake Total 960 Output Total 1300 Balance -340 - Medications Medications: Current Medications Albuterol/Ipratropium (Duoneb 3 Mg/0.5 Mg (3 Ml) Ud) 3 ml IH Q2H PRN PRN Reason: Shortness of Breath Last Admin: 01/19/18 04:24 Dose: 3 ml Albuterol/Ipratropium (Duoneb 3 Mg/0.5 Mg (3 Ml) Ud) 3 ml IH [id number] [facility] Last Admin: 01/20/18 07:46 Dose: 3 ml Aspirin (Ecotrin) 81 mg PO DAILY [facility] Last Admin: 01/20/18 09:59 Dose: 81 mg Atorvastatin Calcium (Lipitor) 10 mg PO DIN [facility] Last Admin: 01/19/18 17:22 Dose: 10 mg Ergocalciferol (Drisdol 50,000 Intl Units Cap) 1 cap PO QWK [facility] Furosemide (Lasix) 40 mg IVP DAILY [facility] Last Admin: 01/20/18 10:00 Dose: 40 mg Heparin Sodium (Porcine) (Heparin) 5,000 units SC Q12 [facility] PRN Reason: Protocol Last Admin: 01/20/18 09:59 Dose: 5,000 units Isosorbide Mononitrate (Imdur) 60 mg PO DAILY [facility] Last Admin: 01/20/18 09:59 Dose: 60 mg Lactic Acid (Lac-Hydrin 12% Cream (140 G)) 0 ea TOP Q12 [facility] Last Admin: 01/20/18 10:10 Dose: Not Given Metoprolol Tartrate (Lopressor) 50 mg PO 0800,1800 [facility] Last Admin: 01/20/18 08:41 Dose: 50 mg Pantoprazole Sodium (Protonix Ec Tab) 40 mg PO 0600 [facility] Last Admin: 01/20/18 05:39 Dose: 40 mg Tamsulosin HCl (Flomax) 0.4 mg PO 1800 [facility] Last Admin: 01/19/18 17:22 Dose: 0.4 mg Tiotropium [place] (Spiriva) 18 mcg IH BID [facility] Last Admin: 01/20/18 09:59 Dose: 18 mcg - Labs Labs: 01/20/18 06:25 01/20/18 06:25 PT 15.3 SECONDS (9.4-12.5) H 01/17/18 18:00 INR 1.33 (0.93-1.08) H 01/17/18 18:00 - Constitutional Appears: Well, Non-toxic, No Acute Distress - Extremities Exam Extremities Exam: absent: Calf Tenderness Additional comments: Dressing is clean, dry, intact without strikethrough CFT < 3 seconds noted to all digits, temperature gradient WNL, no digital hair appreciated, temperature gradient WNL No pain with palpation to the LE including calf squeeze and palpation Able to wiggle toes - Psychiatric Exam Psychiatric exam: Normal Affect, Normal Mood Assessment and Plan - Assessment and Plan (Free Text) Assessment: 87 yo male patient with venous stasis ulcerations to anterior aspect of bilateral legs (R>L) Plan: Pt seen and evaluated Discussed plan in detail with attending Dr. Buitrago Labs and vitals reviewed LE Unna boot keep c/d/i. Dressing to remain intact. Do not touch Venous duplex studies- no DVT to lower extremities b/l Will continue to follow patient while in house Thank you for allowing us to take part in patient's care <Siri Buitrago - Last Filed: 01/21/18 12:58> Objective - Vital Signs/Intake and Output Vital Signs (last 24 hours): Temp Pulse Resp BP Pulse Ox 98.0 F 71 20 146/73 92 L 01/21/18 12:00 01/21/18 12:00 01/21/18 12:00 01/21/18 12:00 01/21/18 05:57 Intake and Output: 01/21/18 01/21/18 06:59 18:59 Intake Total 480 Output Total 400 Balance 80 - Medications Medications: Current Medications Albuterol/Ipratropium (Duoneb 3 Mg/0.5 Mg (3 Ml) Ud) 3 ml IH Q2H PRN PRN Reason: Shortness of Breath Last Admin: 01/21/18 01:05 Dose: 3 ml Albuterol/Ipratropium (Duoneb 3 Mg/0.5 Mg (3 Ml) Ud) 3 ml IH [id number] [facility] Last Admin: 01/21/18 08:10 Dose: 3 ml Aspirin (Ecotrin) 81 mg PO DAILY [facility] Last Admin: 01/21/18 10:09 Dose: 81 mg Atorvastatin Calcium (Lipitor) 10 mg PO DIN [facility] Last Admin: 01/20/18 17:31 Dose: 10 mg Budesonide (Pulmicort Respules) 0.5 mg IH [id number] [facility] Last Admin: 01/21/18 08:10 Dose: 0.5 mg Ergocalciferol (Drisdol 50,000 Intl Units Cap) 1 cap PO QWK [facility] Furosemide (Lasix) 40 mg IVP DAILY [facility] Last Admin: 01/21/18 10:09 Dose: 40 mg Heparin Sodium (Porcine) (Heparin) 5,000 units SC Q12 [facility] PRN Reason: Protocol Last Admin: 01/21/18 10:09 Dose: 5,000 units Ceftriaxone Sodium (Rocephin 1 Gram Ivpb) 1 gm in 100 mls @ 100 mls/hr IVPB DAILY [facility] PRN Reason: Protocol Last Admin: 01/21/18 10:08 Dose: 100 mls/hr Isosorbide Mononitrate (Imdur) 60 mg PO DAILY [facility] Last Admin: 01/21/18 10:09 Dose: 60 mg Lactic Acid (Lac-Hydrin 12% Cream (140 G)) 0 ea TOP Q12 [facility] Last Admin: 01/21/18 10:19 Dose: Not Given Metoprolol Tartrate (Lopressor) 50 mg PO 0800,1800 [facility] Last Admin: 01/21/18 08:06 Dose: 50 mg Pantoprazole Sodium (Protonix Ec Tab) 40 mg PO 0600 [facility] Last Admin: 01/21/18 05:32 Dose: 40 mg Tamsulosin HCl (Flomax) 0.4 mg PO 1800 [facility] Last Admin: 01/20/18 17:31 Dose: 0.4 mg Tiotropium [place] (Spiriva) 18 mcg IH BID [facility] Last Admin: 01/21/18 10:09 Dose: 18 mcg - Labs Labs: 01/21/18 06:30 01/21/18 06:30 PT 15.3 SECONDS (9.4-12.5) H 01/17/18 18:00 INR 1.33 (0.93-1.08) H 01/17/18 18:00 Attending/Attestation - Attestation I have personally seen and examined this patient.: Yes I have fully participated in the care of the patient.: Yes I have reviewed all pertinent clinical information, including history, physical exam and plan: Yes Notes (Text): 01/21/18 12:58 cont unna boot for edema control and wound healing
[2018-01-20] MEDS ORDERED: Vancomycin 1gm in NS 250ml 1 GM/250 ML BAG IVPB ONE (15:21)
[2018-01-20] MEDS: cefTRIAXone 1 gm 1 GM/100 ML BAG IVPB SCH (17:32)
[2018-01-21] MEDS: Albuterol-Ipratrop 3 mg / 0.5 (3 ml) UD IH PRN (01:05)
[2018-01-21] MEDS: Albuterol-Ipratrop 3 mg / 0.5 (3 ml) UD IH SCH ×3 (03:40→13:37)
[2018-01-21] MEDS: Pantoprazole 40 mg EC Tab PO SCH (05:32)
[2018-01-21 05:57] VITALS: O2SAT 92
[2018-01-21 07:11] LABS: HEMOGLOBIN 10.9 g/dL (14.0-18.0); MEAN CELL VOLUME 86.7 fl (80.0-105.0); MEAN CORPUSCULAR HEMOGLOBIN 26.3 pg (25.0-35.0); MEAN CORPUSCULAR HGB CONC 30.3 g/dl (31.0-37.0); MEAN PLATELET VOLUME 9.8 fl (7.0-11.0); RBC 4.15 10^6/uL (3.5-6.1); RED CELL DISTRIBUTION WIDTH 17.7 % (11.5-14.5); WHITE BLOOD COUNT 6.4 10^3/ul (4.5-11.0)
[2018-01-21 07:27] LABS: ALB/GLOB RATIO 0.8 (1.1-1.8); ALBUMIN 3.1 g/dL (3.0-4.8); ALT/SGPT 23 U/L (7-56); AST/SGOT 24 U/L (17-59); BLOOD UREA NITROGEN 24 mg/dL (7-21); CALCIUM 8.9 mg/dL (8.4-10.5); GFR AFRICAN-AMERICAN > 60; GFR NON-AFRICAN AMERICAN 52
[2018-01-21] MEDS ORDERED: Budesonide 0.5 mg/2 ml Inhal Susp UD IH SCH (08:00)
--- NOTE | 2018-01-21 09:52 | CON ---
DATE: 01/21/2018 PULMONARY CONSULTATION REASON FOR CONSULTATION: Chronic obstructive pulmonary disease. REFERRING PHYSICIAN: Dr. Julien. HISTORY OF PRESENT ILLNESS: The patient is a chronically ill 87-year-old male, with past medical history significant for advanced chronic obstructive pulmonary disease, positive extensive smoking history - still smokes, on home oxygen, congestive heart failure, coronary artery disease, cardiomyopathy, valvular heart disease, who presented to [facility] - originally on 01/17/2018 - for worsening shortness of breath at rest and dyspnea on exertion for the past 4 days. Apparently, the patient had a visiting nurse come to his home. The nurse also noted that the patient had increased bilateral lower leg edema. He was then brought to [facility] for additional evaluation and admission. The patient is not short of breath at rest. He does have chronic dyspnea on exertion. He also states to a chronic minimal cough with occasional sputum production. There is no history of chest pain, coughing up of blood or chest pain - made worse with deep respirations. There is no history of temperatures, chills or infectious exposure. There is no history of night sweats, weight loss or appetite change prior to the above events. No history of calf pains. No history of syncope or diaphoresis. No history of recent travel or trauma. REVIEW OF SYSTEMS: No history of nausea, vomiting or diarrhea. No acute urinary symptoms. No new neurologic complaints. Rest of the review of systems negative. ALLERGIES: NO KNOWN ALLERGIES. SOCIAL HISTORY: Positive for extensive tobacco usage - still smokes. No alcohol. FAMILY HISTORY: No inheritable diseases. HOME MEDICATIONS: Include Lipitor, Ecotrin, Lasix, Advair. PHYSICAL EXAMINATION: GENERAL: The patient is not short of breath at rest. He is not using accessory muscles for breathing. VITAL SIGNS: Temperature is 97.8, pulse is 88, respirations 18, blood pressure 135/77. Oxygen saturation on nasal cannula is 92-95%. HEENT: Normocephalic, atraumatic. No JVD. CARDIOVASCULAR: Systolic ejection murmur at the lower left sternal border. Positive S3 gallop. LUNGS: Crackles at both bases. Minimal rhonchi. No wheezing. EXTREMITIES: Positive for edema. No cyanosis. No clubbing. Calves are nontender to palpation. GI: Abdomen is soft, nontender and nondistended. Bowel sounds are positive. SKIN: No acute rash. NEUROLOGIC: Limited at the present time. PERTINENT LABORATORY DATA: Chest x-ray was done yesterday and reviewed. The most current film shows definite improvement - with decreased pulmonary vascular congestion. There are no significant effusions. CBC: White count 6.7, hemoglobin 11.0, hematocrit 35.5, platelets of 243,000. Complete metabolic profile: Carbon dioxide 36, anion gap 9, BUN 24, alkaline phosphatase 205. Rest of the metabolic profile is within normal limits. Initial BNP--20,000. Arterial blood gas was done on nasal cannula yesterday. This is felt to be a venous blood gas. The pH is 7.38, pCO2 of 60, pO2 of 21. Again, the peripheral oxygen saturation is 92-95%. IMPRESSION: 1. Recurrent congestive heart failure. 2. Advanced chronic obstructive pulmonary disease, on home oxygen. 3. Coronary artery disease. 4. Cardiomyopathy. 5. Mild anemia. 6. Valvular heart disease. PLAN: The patient presented to [facility] - originally on 01/17/2018 - with main complaints of increasing shortness of breath at rest and dyspnea on exertion for the past 4 days. In the emergency room, the patient was diagnosed with congestive heart failure. He was thus admitted for additional evaluation. Over the past few days, the patient is much improved clinically. In addition, the chest x-ray (as above) is also significantly improved. I would continue with the treatment for congestive heart failure and coronary artery disease as per Cardiology. Input by Dr. Pratt is noted. The patient remains on intravenous Lasix. I have also reviewed the arterial blood gas. Again, the oxygen saturation peripherally is 92-95%. The above blood gas is most likely venous in nature. On physical exam, there is only mild bronchospasm noted. I will continue with the current nebulizer treatments and add inhaled Pulmicort this morning. The patient is on Advair at home. Clinical status of the patient is much improved - compared to the initial presentation. I will discuss the above with the attending physician this morning. Thank you very much for this pulmonary consultation. [place] MD [facility] # [id number] MTDD
--- NOTE | 2018-01-21 10:00 | CP.PCM.PN ---
Subjective - Date & Time of Evaluation Date of Evaluation: 01/21/18 Time of Evaluation: 07:00 - Subjective Subjective: Stable on 3R. No CP or SOB. V/S noted. RSR PE: Lungs: rhonchi Cor.: S1S2, sys. murmur Abd.: soft Ext.: legs RED wrapped Neuro.: alert Urine total for 01/20 was 1050 ccs. Labs noted. Cr.= 1.3, K+= 4.7 LE bro. Dopplers: No DVT Echo: Mild LVD with septal HK, Mild/Mod. , Mod. AI, Mild MR, Mod/Sev. TR and PH. CXR 01/20: improved Wound C+S: Positive Objective - Vital Signs/Intake and Output Vital Signs (last 24 hours): Temp Pulse Resp BP Pulse Ox 97.8 F 88 18 143/69 92 L 01/21/18 05:57 01/21/18 05:57 01/21/18 05:57 01/21/18 08:06 01/21/18 05:57 Intake and Output: 01/21/18 01/21/18 06:59 18:59 Intake Total 480 Output Total 400 Balance 80 - Medications Medications: Current Medications Albuterol/Ipratropium (Duoneb 3 Mg/0.5 Mg (3 Ml) Ud) 3 ml IH Q2H PRN PRN Reason: Shortness of Breath Last Admin: 01/21/18 01:05 Dose: 3 ml Albuterol/Ipratropium (Duoneb 3 Mg/0.5 Mg (3 Ml) Ud) 3 ml IH [id number] [facility] Last Admin: 01/21/18 08:10 Dose: 3 ml Aspirin (Ecotrin) 81 mg PO DAILY [facility] Last Admin: 01/20/18 09:59 Dose: 81 mg Atorvastatin Calcium (Lipitor) 10 mg PO DIN [facility] Last Admin: 01/20/18 17:31 Dose: 10 mg Budesonide (Pulmicort Respules) 0.5 mg IH [id number] [facility] Last Admin: 01/21/18 08:10 Dose: 0.5 mg Ergocalciferol (Drisdol 50,000 Intl Units Cap) 1 cap PO QWK [facility] Furosemide (Lasix) 40 mg IVP DAILY [facility] Last Admin: 01/20/18 10:00 Dose: 40 mg Heparin Sodium (Porcine) (Heparin) 5,000 units SC Q12 [facility] PRN Reason: Protocol Last Admin: 01/20/18 21:36 Dose: 5,000 units Ceftriaxone Sodium (Rocephin 1 Gram Ivpb) 1 gm in 100 mls @ 100 mls/hr IVPB DAILY [facility] PRN Reason: Protocol Last Admin: 01/20/18 17:32 Dose: 100 mls/hr Isosorbide Mononitrate (Imdur) 60 mg PO DAILY [facility] Last Admin: 01/20/18 09:59 Dose: 60 mg Lactic Acid (Lac-Hydrin 12% Cream (140 G)) 0 ea TOP Q12 [facility] Last Admin: 01/20/18 21:21 Dose: Not Given Metoprolol Tartrate (Lopressor) 50 mg PO 0800,1800 [facility] Last Admin: 01/21/18 08:06 Dose: 50 mg Pantoprazole Sodium (Protonix Ec Tab) 40 mg PO 0600 [facility] Last Admin: 01/21/18 05:32 Dose: 40 mg Tamsulosin HCl (Flomax) 0.4 mg PO 1800 [facility] Last Admin: 01/20/18 17:31 Dose: 0.4 mg Tiotropium [place] (Spiriva) 18 mcg IH BID [facility] Last Admin: 01/20/18 17:32 Dose: 18 mcg - Labs Labs: 01/21/18 06:30 01/21/18 06:30 PT 15.3 SECONDS (9.4-12.5) H 01/17/18 18:00 INR 1.33 (0.93-1.08) H 01/17/18 18:00 Assessment and Plan - Assessment and Plan (Free Text) Assessment: Dyspnea, Scrotal/Penile edema/CHF CAD/IN/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 TR and PH on echo COPD HLD CVA Smoker Paget's Disease PAD/Vascular Bypass Chronic LE celulitis Bladder cancer Plan: Continue IV Lasix, neg balance Monitor labs, renal fx, I/Os, etc AB As per Podiatry, Medical Team OOB as jeffry.
[2018-01-21] MEDS: cefTRIAXone 1 gm 1 GM/100 ML BAG IVPB SCH (10:08)
[2018-01-21] MEDS: Tiotropium 18 mcg Cap For Inhalation IH SCH ×2 (10:09→17:49)
[2018-01-21] MEDS: Ammonium Lactate 12% Cream (140 g) TOP SCH (10:19)
[2018-01-21 12:20] VITALS: RESP 20; TEMP 98
--- NOTE | 2018-01-21 12:47 | CP.PCM.PN ---
<Nathan Gautam - Last Filed: 01/21/18 13:45> Subjective - Date & Time of Evaluation Date of Evaluation: 01/21/18 Time of Evaluation: 12:45 - Subjective Subjective: Medicine Progress Note: Patient seen and assessed at bedside. Patient had one episode of SOB overnight that resolved with PRN breathing treatment. He denies any fevers, chills, headache, chest pain, SOB, cough, abdominal pain, N/V/D/C, urinary symptoms or any numbness/tingling of any extremity. Objective - Vital Signs/Intake and Output Vital Signs (last 24 hours): Temp Pulse Resp BP Pulse Ox 98.0 F 71 20 146/73 92 L 01/21/18 12:00 01/21/18 12:00 01/21/18 12:00 01/21/18 12:00 01/21/18 05:57 Intake and Output: 01/21/18 01/21/18 06:59 18:59 Intake Total 480 Output Total 400 Balance 80 - Medications Medications: Current Medications Albuterol/Ipratropium (Duoneb 3 Mg/0.5 Mg (3 Ml) Ud) 3 ml IH Q2H PRN PRN Reason: Shortness of Breath Last Admin: 01/21/18 01:05 Dose: 3 ml Albuterol/Ipratropium (Duoneb 3 Mg/0.5 Mg (3 Ml) Ud) 3 ml IH [id number] [facility] Last Admin: 01/21/18 08:10 Dose: 3 ml Aspirin (Ecotrin) 81 mg PO DAILY [facility] Last Admin: 01/21/18 10:09 Dose: 81 mg Atorvastatin Calcium (Lipitor) 10 mg PO DIN [facility] Last Admin: 01/20/18 17:31 Dose: 10 mg Budesonide (Pulmicort Respules) 0.5 mg IH [id number] [facility] Last Admin: 01/21/18 08:10 Dose: 0.5 mg Ergocalciferol (Drisdol 50,000 Intl Units Cap) 1 cap PO QWK [facility] Furosemide (Lasix) 40 mg IVP DAILY [facility] Last Admin: 01/21/18 10:09 Dose: 40 mg Heparin Sodium (Porcine) (Heparin) 5,000 units SC Q12 [facility] PRN Reason: Protocol Last Admin: 01/21/18 10:09 Dose: 5,000 units Ceftriaxone Sodium (Rocephin 1 Gram Ivpb) 1 gm in 100 mls @ 100 mls/hr IVPB DAILY [facility] PRN Reason: Protocol Last Admin: 01/21/18 10:08 Dose: 100 mls/hr Isosorbide Mononitrate (Imdur) 60 mg PO DAILY [facility] Last Admin: 01/21/18 10:09 Dose: 60 mg Lactic Acid (Lac-Hydrin 12% Cream (140 G)) 0 ea TOP Q12 [facility] Last Admin: 01/21/18 10:19 Dose: Not Given Metoprolol Tartrate (Lopressor) 50 mg PO 0800,1800 [facility] Last Admin: 01/21/18 08:06 Dose: 50 mg Pantoprazole Sodium (Protonix Ec Tab) 40 mg PO 0600 [facility] Last Admin: 01/21/18 05:32 Dose: 40 mg Tamsulosin HCl (Flomax) 0.4 mg PO 1800 [facility] Last Admin: 01/20/18 17:31 Dose: 0.4 mg Tiotropium [place] (Spiriva) 18 mcg IH BID [facility] Last Admin: 01/21/18 10:09 Dose: 18 mcg - Labs Labs: 01/21/18 06:30 01/21/18 06:30 PT 15.3 SECONDS (9.4-12.5) H 01/17/18 18:00 INR 1.33 (0.93-1.08) H 01/17/18 18:00 - Constitutional Appears: Non-toxic, No Acute Distress - Head Exam Head Exam: ATRAUMATIC, NORMOCEPHALIC - Eye Exam Eye Exam: EOMI, Normal appearance Pupil Exam: NORMAL ACCOMODATION, PERRL - ENT Exam ENT Exam: Mucous Membranes Moist, Normal Exam - Neck Exam Neck Exam: Full ROM, Normal Inspection. absent: Lymphadenopathy, Tenderness - Respiratory Exam Respiratory Exam: Clear to Ausculation Bilateral, NORMAL BREATHING PATTERN. absent: Rales, Rhonchi, Wheezes - Cardiovascular Exam Cardiovascular Exam: REGULAR RHYTHM, RRR, +S1, +S2 - GI/Abdominal Exam GI & Abdominal Exam: Soft, Normal Bowel Sounds. absent: Tenderness - Extremities Exam Extremities Exam: Full ROM, Normal Capillary Refill. absent: Calf Tenderness, Normal Inspection (B/L wound dressing clean, dry and intact) - Neurological Exam Neurological Exam: Alert, Awake, Oriented x3 - Psychiatric Exam Psychiatric exam: Normal Affect, Normal Mood - Skin Skin Exam: Dry, Warm Assessment and Plan - Assessment and Plan (Free Text) Assessment: 87 year old male with a past medical history significant for NSTEMI, CAD, CHF ( EF 17%), COPD, HTN, Paget's disease of bone, PAD, bladder tumor with urinary retention, anemia, DM, chronic venous stasis ulcers admitted for CHF exacerbation. Subsequently, patient has developed an JASWINDER and has had MSSA/ Enterobacter wound culture. Plan: 1. Acute Decompensated Heart Failure -Echo showed EF of 42%, aortic valve moderate to severe calcified, and moderate to severe tricuspid regurgitation -Daily Chest X-Ray's showing improving vascular congestion and cardiomegaly -EKG on admission showed sinus rhythm with PAC, inferior infarct age undetermined, inverted T [place] [address] -Three serial troponins negative -Continue Lasix 40mg IVP daily -Strict I's and O's and Daily weights -Head of bed to 30 degrees -Holding RED-I/ARB in setting of JASWINDER -Cardiology consulted, all recommendations appreciated -PT/OT recommending TCU for further rehabilitation 2. JASWINDER -Likely intrarenal etiology with an FeUrea of 47.9 -BUN/Creatinine improving -Continue reduced dosage of Lasix at 40mg IVP daily -Avoid nephrotoxic agents -Continue to monitor with daily CMP's 3. Lower Extremity Cellulitis -Wound cultures grew enterobacter cloacae and MSSA -Afebrile and without leukocytosis, tachycardia, tachypnea or lactic acidosis -Continue IV Rocephin (Day 2) -Wound care per podiatry -ID and Podiatry consulted, all recommendations appreciated 4. History of COPD -See chest x-ray findings above -Continue scheduled and as needed Duonebs -Continue Pulmicort and Spiriva -Continue supplemental oxygen -Maintain O2 saturation between 88-95% -Pulmonology consulted, all recommendations appreciated 5. History of CAD -See EKG findings above -Three serial troponins negative -Continue ASA, Lipitor, Lopressor 50 mg PO BID and Imdur 60 mg PO daily 6. History of BPH -Continue home Flomax GI Prophylaxis: Protonix DVT Prophylaxis: Heparin Disposition: Patient approved for TCU for further rehabilitation with placement pending available bed. Patient seen and case discussed with attending, Dr. Shepherd. <Karthikeyan Shepherd - Last Filed: 01/22/18 13:53> Objective - Vital Signs/Intake and Output Vital Signs (last 24 hours): Temp Pulse Resp BP Pulse Ox 98.0 F 86 20 118/85 92 L 01/21/18 12:00 01/21/18 17:49 01/21/18 12:00 01/21/18 17:49 01/21/18 05:57 - Labs Labs: 01/21/18 06:30 01/21/18 06:30 PT 15.3 SECONDS (9.4-12.5) H 01/17/18 18:00 INR 1.33 (0.93-1.08) H 01/17/18 18:00 Attending/Attestation - Attestation I have personally seen and examined this patient.: Yes I have fully participated in the care of the patient.: Yes I have reviewed all pertinent clinical information, including history, physical exam and plan: Yes Notes (Text): 01/22/18 13:49 attending note; Patient seen and examined with resident. Patient is a 87 year old male with history of tobacco use, CAD, COPD, hypertension, Paget's disease of bone, bladder tumor, anemia, chronic venous stasis ulcers is admitted for evaluation of dyspnea, bilateral LE edema, scrotal / penile edema and found to have acute decompensated CHF exacerbation. Patient was started on aggressive diuresis. acute kidney injury resolving. Mostly secondary to aggressive diuresis. Lasix dosage adjusted. There is significant improvement in edema. Continue asa, imdur, lopressor and lipitor. ACEI/ARB on hold due to acute Kidney injury. leg wound culture is positive for MSSA and enterobactor. Continue dressing change by podiatry. on Iv rocephin. physical therapy evaluation appreciated. TCU evaluation requested. Possible transfer to TCU if bed available. Upon discharge patient will follow up with Dr. Ferrari.
[2018-01-21 17:55] VITALS: BP 118/85; PULSE 86
--- NOTE | 2018-01-21 18:27 | CP.PCM.CON ---
History of Present Illness - History of Present Illness History of Present Illness: Infectious Disease Consultation: January 21, 2018 87 yo male brought in initially for SOB. The patient has an extensive medical history that includes COPD, CHF last known EF of 30-35% in 08/2016, HTN, Paget' s disease and PAD. The patient has bilateral lower extremity cellulitis with venous stasis ulcerations of the legs being treated with Rocephin. The patient is not orientated to time (he thinks he has been in [facility] for about a day). He also complains of scrotal swelling and erythema. Both legs are in Unna boots now. PMHx: COPD, CHF last known EF of 30-35% in 08/2016, HTN, Paget's disease, chronic bronchitis, bladder tumor, urinary retention, and PAD PSHx: not known to me at this time Allergies: NKDA Social Hx: former tobacco user, no EtOH, no illicit drugs to my knowledge Active Medications Albuterol/Ipratropium (Duoneb 3 Mg/0.5 Mg (3 Ml) Ud) 3 ml IH Q2H PRN PRN Reason: Shortness of Breath Last Admin: 01/21/18 01:05 Dose: 3 ml Albuterol/Ipratropium (Duoneb 3 Mg/0.5 Mg (3 Ml) Ud) 3 ml IH [id number] [facility] Last Admin: 01/21/18 13:37 Dose: 3 ml Aspirin (Ecotrin) 81 mg PO DAILY [facility] Last Admin: 01/21/18 10:09 Dose: 81 mg Atorvastatin Calcium (Lipitor) 10 mg PO DIN [facility] Last Admin: 01/21/18 17:49 Dose: 10 mg Budesonide (Pulmicort Respules) 0.5 mg IH [id number] [facility] Last Admin: 01/21/18 08:10 Dose: 0.5 mg Ergocalciferol (Drisdol 50,000 Intl Units Cap) 1 cap PO QWK [facility] Furosemide (Lasix) 40 mg IVP DAILY [facility] Last Admin: 01/21/18 10:09 Dose: 40 mg Heparin Sodium (Porcine) (Heparin) 5,000 units SC Q12 [facility] PRN Reason: Protocol Last Admin: 01/21/18 10:09 Dose: 5,000 units Ceftriaxone Sodium (Rocephin 1 Gram Ivpb) 1 gm in 100 mls @ 100 mls/hr IVPB DAILY [facility] PRN Reason: Protocol Last Admin: 01/21/18 10:08 Dose: 100 mls/hr Isosorbide Mononitrate (Imdur) 60 mg PO DAILY [facility] Last Admin: 01/21/18 10:09 Dose: 60 mg Lactic Acid (Lac-Hydrin 12% Cream (140 G)) 0 ea TOP Q12 [facility] Last Admin: 01/21/18 10:19 Dose: Not Given Metoprolol Tartrate (Lopressor) 50 mg PO 0800,1800 [facility] Last Admin: 01/21/18 17:49 Dose: 50 mg Pantoprazole Sodium (Protonix Ec Tab) 40 mg PO 0600 [facility] Last Admin: 01/21/18 05:32 Dose: 40 mg Tamsulosin HCl (Flomax) 0.4 mg PO 1800 [facility] Last Admin: 01/21/18 17:49 Dose: 0.4 mg Tiotropium [place] (Spiriva) 18 mcg IH BID [facility] Last Admin: 01/21/18 17:49 Dose: 18 mcg Family Hx: none given ROS: Difficult to obtain as the patient is disorientated to time. He is noted to have scrotal swelling and induration. Both legs are currently in Unna boots. Admitted for SOB. Past Patient History - Past Social History Smoking Status: Current Some Days Smoker - CARDIAC Hx Cardiac Disorders: Yes Hx Congestive Heart Failure: Yes Hx Hypertension: Yes - PULMONARY Hx Respiratory Disorders: Yes (intubation ,02 dependent at home) - NEUROLOGICAL Hx Neurological Disorder: No - HEENT Hx HEENT Problems: Yes (uses glasses) Hx Deafness: Yes (Hard of hearing) - RENAL Hx Chronic Kidney Disease: No (DENIES) - ENDOCRINE/METABOLIC Hx Endocrine Disorders: No (DENIES) - HEMATOLOGICAL/ONCOLOGICAL Hx Blood Disorders: No - INTEGUMENTARY Hx Dermatological Problems: Yes (DRY AND SCALY SKIN) - MUSCULOSKELETAL/RHEUMATOLOGICAL Hx Falls: Yes - GASTROINTESTINAL Hx Gastrointestinal Disorders: No (DENIES) - GENITOURINARY/GYNECOLOGICAL Hx Genitourinary Disorders: Yes Hx Prostate Problems: Yes - PSYCHIATRIC Hx Substance Use: No - SURGICAL HISTORY Hx Surgeries: Yes (STENT TO THE LEGS) - ANESTHESIA Hx Anesthesia Reactions: No Hx Malignant Hyperthermia: No Meds Allergies/Adverse Reactions: Allergies Allergy/AdvReac Type Severity Reaction Status Date / Time No Known Allergies Allergy Verified 09/02/17 20:00 - Medications Medications: Current Medications Albuterol/Ipratropium (Duoneb 3 Mg/0.5 Mg (3 Ml) Ud) 3 ml IH Q2H PRN PRN Reason: Shortness of Breath Last Admin: 01/21/18 01:05 Dose: 3 ml Albuterol/Ipratropium (Duoneb 3 Mg/0.5 Mg (3 Ml) Ud) 3 ml IH [id number] [facility] Last Admin: 01/21/18 13:37 Dose: 3 ml Aspirin (Ecotrin) 81 mg PO DAILY [facility] Last Admin: 01/21/18 10:09 Dose: 81 mg Atorvastatin Calcium (Lipitor) 10 mg PO DIN [facility] Last Admin: 01/21/18 17:49 Dose: 10 mg Budesonide (Pulmicort Respules) 0.5 mg IH [id number] [facility] Last Admin: 01/21/18 08:10 Dose: 0.5 mg Ergocalciferol (Drisdol 50,000 Intl Units Cap) 1 cap PO QWK [facility] Furosemide (Lasix) 40 mg IVP DAILY [facility] Last Admin: 01/21/18 10:09 Dose: 40 mg Heparin Sodium (Porcine) (Heparin) 5,000 units SC Q12 [facility] PRN Reason: Protocol Last Admin: 01/21/18 10:09 Dose: 5,000 units Ceftriaxone Sodium (Rocephin 1 Gram Ivpb) 1 gm in 100 mls @ 100 mls/hr IVPB DAILY [facility] PRN Reason: Protocol Last Admin: 01/21/18 10:08 Dose: 100 mls/hr Isosorbide Mononitrate (Imdur) 60 mg PO DAILY [facility] Last Admin: 01/21/18 10:09 Dose: 60 mg Lactic Acid (Lac-Hydrin 12% Cream (140 G)) 0 ea TOP Q12 [facility] Last Admin: 01/21/18 10:19 Dose: Not Given Metoprolol Tartrate (Lopressor) 50 mg PO 0800,1800 [facility] Last Admin: 01/21/18 17:49 Dose: 50 mg Pantoprazole Sodium (Protonix Ec Tab) 40 mg PO 0600 [facility] Last Admin: 01/21/18 05:32 Dose: 40 mg Tamsulosin HCl (Flomax) 0.4 mg PO 1800 [facility] Last Admin: 01/21/18 17:49 Dose: 0.4 mg Tiotropium [place] (Spiriva) 18 mcg IH BID [facility] Last Admin: 01/21/18 17:49 Dose: 18 mcg Physical Exam - Constitutional Appears: Non-toxic, No Acute Distress - Head Exam Head Exam: ATRAUMATIC, NORMOCEPHALIC - Eye Exam Eye Exam: EOMI, PERRL Pupil Exam: NORMAL ACCOMODATION, PERRL - ENT Exam ENT Exam: Mucous Membranes Moist, Normal External Ear Exam, TM's Normal Bilaterally - Neck Exam Neck exam: Positive for: Full Rom, Normal Inspection - Respiratory Exam Respiratory Exam: Clear to Auscultation Bilateral, NORMAL BREATHING PATTERN. absent: Rales, Rhonchi, Wheezes - Cardiovascular Exam Cardiovascular Exam: REGULAR RHYTHM, RRR, +S1, +S2 - GI/Abdominal Exam GI & Abdominal Exam: Normal Bowel Sounds, Soft. absent: Distended, Tenderness - Exam Exam: Scrotal Swelling External exam: Erythema - Extremities Exam Extremities exam: Negative for: calf tenderness Additional comments: Dressing is clean, dry, intact without strikethrough CFT < 3 seconds noted to all digits, temperature gradient WNL, no digital hair appreciated, temperature gradient WNL No pain with palpation to the LE including calf squeeze and palpation Able to wiggle toes - Neurological Exam Neurological exam: Alert, CN II-XII Intact Additional comments: AAO x 1-2 - Psychiatric Exam Psychiatric exam: Normal Affect, Normal Mood - Skin Additional comments: As above. Results - Vital Signs Recent Vital Signs: Last Vital Signs Temp 98.0 F 01/21/18 12:00 Pulse 86 01/21/18 17:49 Resp 20 01/21/18 12:00 BP 118/85 01/21/18 17:49 Pulse Ox 92 L 01/21/18 05:57 - Labs Result Diagrams: 01/21/18 06:30 01/21/18 06:30 Labs: Laboratory Results - last 24 hr 01/21/18 01/21/18 01/21/18 06:30 06:30 13:50 WBC 6.4 RBC 4.15 Hgb 10.9 L Hct 36.0 L MCV 86.7 MCH 26.3 MCHC 30.3 L RDW 17.7 H Plt Count 247 MPV 9.8 Sodium 148 Potassium 4.7 Chloride 105 Carbon Dioxide 36 H Anion Gap 12 BUN 24 H Creatinine 1.3 Est GFR ( Amer) > 60 Est GFR (Non-Af Amer) 52 Random Glucose 103 Calcium 8.9 Phosphorus 3.3 Magnesium 2.0 Total Bilirubin 0.8 AST 24 ALT 23 Alkaline Phosphatase 210 H Total Protein 7.3 Albumin 3.1 Globulin 4.1 Albumin/Globulin Ratio 0.8 L Stool Occult Blood Negative Assessment & Plan - Assessment and Plan (Free Text) Assessment: 87 yo male with scrotal swelling and induration, SOB, and bilateral leg swelling and ulcerations in chronic venous stasis. The patient is now in Unna Boots for both legs. For transfer to [facility]. Patient is not orientated to time. Wound care as per Podiatry. Wounds showing Enterobacter and MSSA. Currently on Rocephin for treatment. Will continue on Rocephin. Thank you for allowing me to participate in the care of the patient, we will follow with you.
[2018-01-24] MEDS ORDERED: Ergocalciferol 50,000 Intl Units Cap PO SCH (10:00)
== END 2018-01-21 22:02 | disposition left against medical advice (07) | DRG 292 ==
LOC: ED 16:49 → ERH 17:32 → 3RSO 21:38
PROVIDERS: ADMIT Hospitalist; ATTEND Internal Medicine
PROC: 3E0F7GC Introduction of Other Therapeutic Substance into Respiratory Tract, Via Natural or Artificial Opening (ICD-10-PCS; principal; 2018-01-18)
DX: I11.0 Hypertensive heart disease with heart failure (principal); L03.116 Cellulitis of left lower limb; L03.115 Cellulitis of right lower limb; N17.9 Acute kidney failure, unspecified; L97.919 Non-pressure chronic ulcer of unspecified part of right lower leg with unspecified severity; L97.929 Non-pressure chronic ulcer of unspecified part of left lower leg with unspecified severity; I50.23 Acute on chronic systolic (congestive) heart failure; J44.9 Chronic obstructive pulmonary disease, unspecified; M88.9 Osteitis deformans of unspecified bone; I87.2 Venous insufficiency (chronic) (peripheral); I27.20 Pulmonary hypertension, unspecified; I25.10 Atherosclerotic heart disease of native coronary artery without angina pectoris; E11.51 Type 2 diabetes mellitus with diabetic peripheral angiopathy without gangrene; E11.622 Type 2 diabetes mellitus with other skin ulcer; D64.9 Anemia, unspecified; R33.9 Retention of urine, unspecified; I08.3 Combined rheumatic disorders of mitral, aortic and tricuspid valves; N48.89 Other specified disorders of penis; I42.9 Cardiomyopathy, unspecified; E78.5 Hyperlipidemia, unspecified; H91.90 Unspecified hearing loss, unspecified ear; F17.200 Nicotine dependence, unspecified, uncomplicated; I25.2 Old myocardial infarction; Z99.81 Dependence on supplemental oxygen; Z86.73 Personal history of transient ischemic attack (TIA), and cerebral infarction without residual deficits; Z85.51 Personal history of malignant neoplasm of bladder